=== PATIENT | male | born 1940 | race Caucasian/White ===

== ENCOUNTER → 2016-10-21 | Outpatient (CLI) | payer OTHER ==
[~2016-10-21] MED LIST: ACET-1311 PO; ALT5 PO; ASCA500 PO; ASPCH81 PO; ASPI81CH2 PO; ATRINS INH; BUME1TAB45 PO; BUME2TAB3 PO; CEFT1INJ57 IV; CLC100 PO; CLC100X PO; CMD/25 PO; CRD200 PO; FAMO1TAB47 PO; FLM4 PO; LECI1200; LEVO25TA5 PO; LEVO88TA3 PO; MCTP EXT; METO-479 PO; MULT-506 PO; NTRGSL/4 UT; OMEG10007 PO; POTA-74; PRAV40TA2; RAMI5CAP PO; WARF2.5T8 PO; XPNINS1255 INH; [UNRECOGNIZED DRUG - CODE] PO; [UNRECOGNIZED DRUG - OTHER] PO; [UNRECOGNIZED DRUG - OTHER] PO
[2016-10-21 12:33] LABS: THYROID STIMULATING HORMONE 0.013 uIu/ml (0.300-4.500)
== END | disposition home or self-care (01) ==
LOC: C.LABBFT 07:44
PROVIDERS: ATTEND Internal Medicine
DX: E05.90 Thyrotoxicosis, unspecified without thyrotoxic crisis or storm (principal); I48.91 Unspecified atrial fibrillation

== ENCOUNTER → 2016-12-30 | Outpatient (CLI) | payer OTHER ==
[~2016-12-30] MED LIST changes: -ASCA500 PO; -BUME2TAB3 PO; -METO-479 PO; +METO1TAB68 PO; -WARF2.5T8 PO
== END | disposition home or self-care (01) ==
LOC: C.LABBFT 07:35
PROVIDERS: ATTEND Urology
DX: E05.90 Thyrotoxicosis, unspecified without thyrotoxic crisis or storm (principal); N40.0 Benign prostatic hyperplasia without lower urinary tract symptoms; R33.9 Retention of urine, unspecified

== ENCOUNTER 2017-01-30 14:55 | Inpatient (IN) | payer OTHER ==
[~2017-01-30] VITALS: Ht 175.3 cm; Wt 100.6 kg
[~2017-01-30 14:55] MED LIST changes: -ASPI81CH2 PO; -ATRINS INH; -BUME1TAB45 PO; -CEFT1INJ57 IV; -CLC100X PO; -CRD200 PO; -FAMO1TAB47 PO; -LEVO25TA5 PO; -MCTP EXT; -RAMI5CAP PO; -XPNINS1255 INH
--- NOTE | 2017-01-30 15:18 | EMERGENCY ROOM VISIT NOTE ---
History First contact with patient: 15:10 (Alka. Story MD) First contact with patient: 15:10 (Skip Ignacio M.D.) Chief Complaint: BILATERAL LEG WEAKNESS Stated Complaint: CAN'T WALK - LEG PAIN History of Present Illness The patient is a 76 year old male who presents to the Emergency Room with complaints of bilateral leg weakness This morning, as he was walking towards his chair, he felt very weak, and had to sit in his chair. During attempt to get up 15-20miin later, patient's legs gave out and patient had to lower himself to the ground. No trauma to the head. No back pain, or pain anywhere in the body, no joint or muscle pain. Does feel numbness and tingling from the back of the knees to the toes. No saddle paresthesia. No BM since this morning. Urinary incontinence due to inability to get to the bathroom. No UTI symptoms. Diagnosed with transverse myelitis 2006 At baseline walking with cane, no issues with ambulation. Usually rides stationary like at home every morning and goes for walks Last fall a couple of years ago. No previous similar episodes No CP, headache No h/o stroke, DM, has history of heart, fractured vertebrae ~2014 Not on oxygen at home, but hypoxemic currently (Alka. Story MD) Source of History: patient Symptom Intensity: severe Quality: other (weakness) Timing: constant (Skip Ignacio M.D.) Review of Systems See HPI for pertinent positives and negatives. A total of ten systems were reviewed and were otherwise negative. (Alka. Story MD) See HPI for pertinent positives and negatives. A total of ten systems were reviewed and were otherwise negative. (Skip Ignacio M.D.) Past Medical/Surgical History Medical Problems: (1) Aortic dissection, thoracic (2) CAD (coronary artery disease) (3) H/O thrombosis (4) H/O: pneumonia (5) HTN (hypertension) (6) Lower extremity weakness (7) Presence of combination internal cardiac defibrillator (ICD) and pacemaker (8) Transverse myelitis Surgical Problems: (1) aortic valve replacement with cadaver valve (2) H/O aortic valve replacement with porcine valve (3) History of aortic valve replacement with metallic valve (Skip Ignacio M.D.) Family History Patient reports no known family medical history. (Alka. Story MD) Social History Smoking Status: Former Smoker (Ex smoker of 20 year, with ) Smokeless Tobacco Use: No Drug Use: none Marital Status: Housing Status: lives with significant other Occupation Status: retired (Alka. Story MD) Alcohol Use: none Drug Use: none Marital Status: Housing Status: lives with family (Skip Ignacio M.D.) Current/Historical Medications Scheduled Acetaminophen (Tylenol), 650 MG PO Q4HR PRN Amiodarone HCl (Amiodarone HCl), 200 MG PO QAM Aspirin (Aspirin), 81 MG PO DAILY Bumetanide (Bumex), 2 MG PO BID Docusate Sodium (Docusate Sodium), 100 MG PO BID Famotidine (Famotidine), 20 MG PO DAILY Fish Oil ([place]-3), 1 CAP PO DAILY Lecithin (Lecithin), 1,200 MG DAILY Levothyroxine Sodium (Levothyroxine Sodium), 25 MCG PO QAM Metoprolol Succinate (Toprol Xl), 100 MG PO DAILY Multivitamin (Multivitamin), 1 TAB PO DAILY Nitroglycerin (Nitrostat), 0.4 MG UT PRN Potassium Chloride (Potassium Chloride Er), 10 MEQ BID Pravastatin Sodium (Pravastatin Sodium), 40 MG HS Ramipril (Ramipril), 5 MG PO DAILY Tamsulosin HCl (Tamsulosin HCl), 0.4 MG PO HS Warfarin Sod (Coumadin), 1.25 MG PO MWF Warfarin Sod (Coumadin), 2.5 MG PO DIRECTED Physical Exam Vital Signs Date Time Temp Pulse Resp B/P (MAP) Pulse Ox O2 Delivery O2 Flow Rate FiO2 01/30/17 18:32 72 18 129/104 92 Nasal Cannula 3.0 01/30/17 17:21 76 18 129/45 92 Nasal Cannula 4.0 01/30/17 16:18 73 01/30/17 15:18 94 Nasal Cannula 4.0 01/30/17 15:18 89 Room Air 01/30/17 15:15 60 16 108/46 93 Nasal Cannula 4.0 01/30/17 14:59 37.9 74 18 99/53 91 Room Air (Skip Ignacio M.D.) Physical Exam GENERAL: alert, well appearing, thin, sitting in bed, no acute distress, non- toxic HEAD: Normocephalic, atraumatic. No sinus tenderness. EYES: PERRL, EOMI, normal conjunctiva OROPHARYNX: no exudate, no erythema, lips, buccal mucosa, and tongue normal and mucous membranes are dry EARS: Tympanic membranes within normal limits, no indication of effusion. NECK: supple, no nuchal rigidity, no adenopathy, non-tender LUNGS: Clear to auscultation. Normal chest wall mechanics, good air entry. No crepitations, crackles, or wheezes HEART: no murmurs, S1 normal and S2 normal CHEST: No reproducible tenderness. ABDOMEN: abdomen soft, non-tender, normo-active bowel sounds, no masses, no rebound or guarding. BACK: Back is symmetrical on inspection, no deformities, no midline tenderness, no CVA tenderness. : Good rectal tone, no perianal numbness SKIN: Warm, pink, dry. No erythema, rashes, or bruising. UPPER EXTREMITIES: upper extremities are grossly normal. Strength 5/5 LOWER EXTREMITIES: No lower limb edema. Calves non tender. Proximal muscular weakness, worse in right than left - strength 1/5, but 4-5/5 bilaterally at all other muscle groups. NEURO: Alert, Ox3. No focal deficits. Normal sensorium, cranial nerves II-XII grossly intact, normal speech. Kernig and Brudzinski negative PSYCH: Mood and affect appropriate. (Alka. Story MD) GENERAL: alert, well appearing, thin, sitting in bed, no acute distress, non- toxic HEAD: Normocephalic, atraumatic. No sinus tenderness. EYES: PERRL, EOMI, normal conjunctiva OROPHARYNX: no exudate, no erythema, lips, buccal mucosa, and tongue normal and mucous membranes are dry EARS: Tympanic membranes within normal limits, no indication of effusion. NECK: supple, no nuchal rigidity, no adenopathy, non-tender LUNGS: Clear to auscultation. Normal chest wall mechanics, good air entry. No crepitations, crackles, or wheezes HEART: no murmurs, S1 normal and S2 normal CHEST: No reproducible tenderness. ABDOMEN: abdomen soft, non-tender, normo-active bowel sounds, no masses, no rebound or guarding. BACK: Back is symmetrical on inspection, no deformities, no midline tenderness, no CVA tenderness. : Good rectal tone, no perianal numbness SKIN: Warm, pink, dry. No erythema, rashes, or bruising. UPPER EXTREMITIES: upper extremities are grossly normal. Strength 5/5 LOWER EXTREMITIES: No lower limb edema. Calves non tender. Proximal muscular weakness, worse in right than left - strength 1/5, but 4-5/5 bilaterally. NEURO: Alert, Ox3. No focal deficits. Normal sensorium, cranial nerves II-XII grossly intact, normal speech. Kernig and Brudzinski negative PSYCH: Mood and affect appropriate. (Skip Ignacio M.D.) Medical Decision & Procedures ER Provider Diagnostic Interpretation: CERVICAL SPINE W/O CT DOSE: HISTORY: Pain. Neuropathy. lower limb weakness, h/o transverse myelitis. ICD in place TECHNIQUE: Multiaxial CT images of the cervical spine were performed and reformatted in the sagittal and coronal plane without the use of contrast. A dose lowering technique was utilized adhering to the principles of ALARA. COMPARISON: None. FINDINGS: No fractures. No subluxation. Prevertebral soft tissues and the C1-C2 interval are intact. No pneumothorax. Considerable degenerative disc change. Mild anterior and posterior osteophytic change throughout. No significant compromise of the spinal canal. Mild reversal of normal cervical curvature. IMPRESSION: No fractures within the cervical spine. Considerable degenerative change throughout. Muscle spasm. THORACIC SPINE WITHOUT CT DOSE: HISTORY: Pain. Neuropathy. lower limb weakness, h/o transverse myelitis. ICD in place TECHNIQUE: Multiaxial CT images of the thoracic spine were performed and reformatted in the sagittal and coronal plane without the use of contrast. A dose lowering technique was utilized adhering to the principles of ALARA. COMPARISON: None. FINDINGS: No fractures. No subluxation. Paraspinal soft tissues are unremarkable. Degenerative disc change throughout. IMPRESSION: No fractures within the thoracic spine. Moderate degenerative disc change. No acute process. LUMBAR SPINE WITHOUT CT DOSE: 3660.19 mGy.cm HISTORY: Pain lower limb weakness, h/o transverse myelitis. ICD in place TECHNIQUE: Multiaxial CT images of the lumbar spine were performed and reformatted in the sagittal and coronal plane without the use of contrast. A dose lowering technique was utilized adhering to the principles of ALARA. COMPARISON: 01/23/2015 FINDINGS: Mild compression deformity L1 considered old and unchanged. Moderate degenerative disc change throughout. 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 This is a nonacute finding. IMPRESSION: 1. Mild compression deformity L1 considered old. 2. Mild/moderate degenerative disc change throughout also stable from the prior exam. There 3. Stable aneurysmal dilatation abdominal aorta. CHEST ONE VIEW PORTABLE CLINICAL HISTORY: SOB requiring O2 dyspnea COMPARISON STUDY: No previous studies for comparison. FINDINGS: Cardiomegaly. Permanent bipolar cardiac pacemaker. Prominent pulmonary vasculature. IMPRESSION: Congestive heart failure (Alka. Story MD) Laboratory Results Test 01/30/17 16:08 Erythrocyte Sedimentation Rate 12 mm/hr (0-14) Phosphorus Level 2.1 mg/dl (2.5-4.9) C-Reactive Protein 5.99 mg/dl (0-0.29) Pro-B-Type Natriuretic Peptide 8173 pg/ml (0-1800) (Skip Ignacio M.D.) ECG Indication: SOB/dyspnea Rate (beats per minute): 74 Rhythm: other Findings: LBBB, T-wave inversion (Lateral and high lateral, consistent with previous EKG) Comparison ECG Date: Wide QRS rhythm has replaced Electronic ventricular pacemaker from previous EKG (Alka. Story MD) ED Course 1517: The patient was evaluated in room B11B. A complete history and physical exam was performed. 1644: Patient reassessed and, trial off oxygen, sats 88%. Rports no chest discomfort at this time. 1701: Dr. Randall consulted and requested thin slice CT 1748: Discussed case with hospitalist Dr. Lu 1800: Paged neurologist, Dr. Smith, and discussed management with him. (Alka. Story MD) Medical Decision Prior records/ancillary studies reviewed and summarized above. Nursing notes reviewed. Additional history obtained from patient and . The patient's history was concerning for lower extremity weakness. Differential diagnosis: Etiologies such as metabolic, infection, hypo/hyperglycemia, electrolyte abnormalities, cardiac sources, intracerebral event, toxicologic, neurologic, as well as others were entertained. Physical examination: As above. ER treatment provided: IV Lock On reassessment the patient felt better. Diagnostics interpretation by me: ECG: abnormal, LBBB, wide QRS complex. No ST elevations. The labs revealed elevated WBC, low platelets, elevated PT/INR consistent with warfarin use, blood and bacteria in urine, elevated creatinine, low phosphate, elevated troponin, elevated CRP Imaging studies: Unable to perform MRI due to ICD (defibrillator) CT cervical, thoracic, lumbar negative for acute causes of weakness CXR shows CHF Consultation: A consultation was placed with the neurologist and hospitalist. The case was discussed and diagnostics were reviewed. By the evaluation outlined above etiologies such as infection, electrolyte abnormalities, cardiac sources, and neurologic abnormalities require further work up. Other emergent etiologies such as intracerebral event, toxologic, blood glucose, metabolic, as well as others were deemed relatively unlikely. The patient and family informed about the findings as listed above. All questions were answered and family pleased with the management. Hospitalist agreeable to assess for admission. Neurologist will follow. (Alka. Story MD) I saw and examined the patient w/ thre resident and agree with the findings and plan of care as documented. Patient is 76 y/o WM w/ extensive PMHx incluinding aortic dissection, transverse myelitis, AVR on coumadin, HTN who presented w/ proximal b/l LE weakness. Upon further evaluation patient was hypoxic and required supplemental oxygen. Futher evaluation showed patient w/ R > L leg weakness in his proximal muscles primarily hip flexors/extensors but w/ good rectal tone. Patient not noted to have acute ischemic changes on EKG; however, he had a +troponin and in the setting of pulm edema on CXR, likely caused by demand ischemia from CHF. This likely also was causing his hypoxia. Patient was discussed w/ the medicine service who agreed patietn would benefit from admission and futher evaluation. Given concern for myopathy, cord lession, myeletis etc patient had imaging of the spine completed. Discussions were had w / Dr. Randall of [facility] as well as neurologist Dr. Smith. Due to patient's old AICD, unable to obtain MRI imaging of spine, but CTs were negative for hematoma or fracture. Patient was admitted for further management with the assistance of medicine and neurology teams. (Skip Ignacio M.D.) Impression Primary Impression: Leg weakness Additional Impressions: CHF (congestive heart failure) Hypoxia Cardiac ischemia Critical Care I have discussed the case with the resident Dr. Story. I have personally performed a history, physical exam, and my own medical decision making. I have reviewed the note and agree with the findings and plan. Upon my evaluation, this patient had a high probability of imminent or life- threatening deterioration due to CHF, hypoxia, cardiac ischemia, which required my direct attention, intervention, and personal management. I have personally provided 45 minutes of critical care time exclusive of time spent on separately billable procedures. Time includes review of laboratory data , radiology results, discussion with consultants, and monitoring for potential decompensation. Interventions were performed as documented above. (Skip Ignacio M.D.) Departure Information Dispostion Being Evaluated By Hospitalist Condition FAIR Referrals Byron Vizcaino M.D. (PCP) Patient Instructions My [facility] Resident Tracking Resident Involvement: Resident Care Provided Care Provided: Adult ED (Alka. Story MD) Care Provided: Adult ED (I saw and examined the patient w/ thre resident and agree with the findings and plan of care as documented. Patient is 76 y/o WM w/ extensive PMHx incluinding aortic dissection, transverse myelitis, AVR on coumadin, HTN who presented w/ proximal b/l LE weakness. Upon further evaluation patient was hypoxic and required supplemental oxygen. Futher evaluation showed patient w/ R > L leg weakness in his proximal muscles primarily hip flexors/extensors but w/ good rectal tone. Patient not noted to have acute ischemic changes on EKG; however, he had a +troponin and in the setting of pulm edema on CXR, likely caused by demand ischemia from CHF. This likely also was causing his hypoxia. Patient was discussed w/ the medicine service who agreed patietn would benefit from admission and futher evaluation. Given concern for myopathy, cord lession, myeletis etc patient had imaging of the spine completed. Discussions were had w/ Dr. Randall of [facility] as well as neurologist Dr. Smith. Due to patient's old AICD, unable to obtain MRI imaging of spine, but CTs were negative for hematoma or fracture. Patient was admitted for further management with the assistance of medicine and neurology teams. ) (Skip Ignacio M.D.) Problem Qualifiers
[2017-01-30] MEDS ORDERED: FAMO1TAB47 PO (15:21)
[2017-01-30] MEDS ORDERED: LEVO25TA5 PO (15:21)
[2017-01-30] MEDS ORDERED: FLM4 PO (15:21)
[2017-01-30] MEDS ORDERED: BUME1TAB45 PO (15:21)
[2017-01-30] MEDS ORDERED: CRD200 PO (15:21)
[2017-01-30] MEDS ORDERED: RAMI5CAP PO (15:21)
[2017-01-30] MEDS ORDERED: ASPI81CH2 PO (15:21)
[2017-01-30] MEDS ORDERED: CLC100X PO (15:21)
[2017-01-30 16:27] LABS: BASO % 0.2 %; BASO ABS # 0.03 K/uL (0-0.2); COMPLETE YES; HEMATOCRIT 42.7 % (42-52); IG% 0.6 %; LYMPH % 6.1 %; LYMPH ABS # 1.05 K/uL (1.2-3.4); MEAN CELL VOLUME 92.8 fL (80-100); MEAN CORPUSCULAR HEMOGLOBIN 29.1 pg (25-34); MEAN CORPUSCULAR HGB CONC 31.4 g/dl (32-36); MEAN PLATELET VOLUME 11.3 fL (7.4-10.4); MONO % 7.2 %; NEUT % 85.9 %; PLATELET COUNT 107 K/uL (130-400); WHITE BLOOD COUNT 17.16 K/uL (4.8-10.8)
[2017-01-30 16:44] LABS: BUN/CREATININE RATIO 13.1 (10-20); CALCIUM 8.3 mg/dl (8.5-10.1); CREATININE 1.8 mg/dl (0.60-1.40); MAGNESIUM 2.3 mg/dl (1.8-2.4); POTASSIUM 4.9 mmol/L (3.5-5.1)
[2017-01-30 16:53] LABS: C-REACTIVE PROTEIN 5.99 mg/dl (0-0.29); PHOSPHORUS 2.1 mg/dl (2.5-4.9)
--- NOTE | 2017-01-30 17:29 | DIAGNOSTIC IMAGING REPORT ---
CERVICAL SPINE W/O CT DOSE: HISTORY: Pain. Neuropathy. lower limb weakness, h/o transverse myelitis. ICD in place TECHNIQUE: Multiaxial CT images of the cervical spine were performed and reformatted in the sagittal and coronal plane without the use of contrast. A dose lowering technique was utilized adhering to the principles of ALARA. COMPARISON: None. FINDINGS: No fractures. No subluxation. Prevertebral soft tissues and the C1-C2 interval are intact. No pneumothorax. Considerable degenerative disc change. Mild anterior and posterior osteophytic change throughout. No significant compromise of the spinal canal. Mild reversal of normal cervical curvature. IMPRESSION: No fractures within the cervical spine. Considerable degenerative change throughout. Muscle spasm. The above report was generated using voice recognition software. It may contain grammatical, syntax or spelling errors. Electronically signed by: Jayant Vazquez M.D. 01/30/2017 5:27 PM Dictated Date/Time: 01/30/2017 5:26 PM
--- NOTE | 2017-01-30 17:30 | DIAGNOSTIC IMAGING REPORT ---
THORACIC SPINE WITHOUT CT DOSE: HISTORY: Pain. Neuropathy. lower limb weakness, h/o transverse myelitis. ICD in place TECHNIQUE: Multiaxial CT images of the thoracic spine were performed and reformatted in the sagittal and coronal plane without the use of contrast. A dose lowering technique was utilized adhering to the principles of ALARA. COMPARISON: None. FINDINGS: No fractures. No subluxation. Paraspinal soft tissues are unremarkable. Degenerative disc change throughout. IMPRESSION: No fractures within the thoracic spine. Moderate degenerative disc change. No acute process. The above report was generated using voice recognition software. It may contain grammatical, syntax or spelling errors. Electronically signed by: Jayant Vazquez M.D. 01/30/2017 5:29 PM Dictated Date/Time: 01/30/2017 5:28 PM
--- NOTE | 2017-01-30 17:33 | DIAGNOSTIC IMAGING REPORT ---
LUMBAR SPINE WITHOUT CT DOSE: 3660.19 mGy.cm HISTORY: Pain lower limb weakness, h/o transverse myelitis. ICD in place TECHNIQUE: Multiaxial CT images of the lumbar spine were performed and reformatted in the sagittal and coronal plane without the use of contrast. A dose lowering technique was utilized adhering to the principles of ALARA. COMPARISON: 01/23/2015 FINDINGS: Mild compression deformity L1 considered old and unchanged. Moderate degenerative disc change throughout. 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 This is a nonacute finding. IMPRESSION: 1. Mild compression deformity L1 considered old. 2. Mild/moderate degenerative disc change throughout also stable from the prior exam. There 3. Stable aneurysmal dilatation abdominal aorta. The above report was generated using voice recognition software. It may contain grammatical, syntax or spelling errors. Electronically signed by: Jayant Vazquez M.D. 01/30/2017 5:32 PM Dictated Date/Time: 01/30/2017 5:29 PM
--- NOTE | 2017-01-30 17:37 | DIAGNOSTIC IMAGING REPORT ---
CHEST ONE VIEW PORTABLE CLINICAL HISTORY: SOB requiring O2 dyspnea COMPARISON STUDY: No previous studies for comparison. FINDINGS: Cardiomegaly. Permanent bipolar cardiac pacemaker. Prominent pulmonary vasculature. IMPRESSION: Congestive heart failure The above report was generated using voice recognition software. It may contain grammatical, syntax or spelling errors. Electronically signed by: Jayant Vazquez M.D. 01/30/2017 5:36 PM Dictated Date/Time: 01/30/2017 5:36 PM
[2017-01-30 18:15] LABS: INR 2.2 (0.9-1.1); PARTIAL THROMBOPLASTIN RATIO 1.4; PROTHROMBIN TIME (PATIENT) 24.8 SECONDS (9.0-12.0)
[2017-01-30] MEDS ORDERED: ALUMINUM/MAGNESIUM/SIMETH (MAALOX MAX) 30 ML UDC PO PRN (19:15)
[2017-01-30] MEDS ORDERED: ONDANSETRON INJ 2 MG/ML 2 ML VIAL IV PRN (19:15)
[2017-01-30] MEDS ORDERED: FUROSEMIDE 40 MG/4 ML VIAL ONE (19:23)
[2017-01-30] MEDS ORDERED: NURSING VERBAL MED ORDER ONE (19:30)
[2017-01-30] MEDS ORDERED: FUROSEMIDE 40 MG/4 ML VIAL IV STA (19:49)
--- NOTE | 2017-01-30 19:56 | History and Physical ---
History & Physical Date & Time of Service: Jan 30, 2017 at 19:34 Chief Complaint: Can't Walk - Leg Pain Primary Care Physician: Byron Vizcaino M.D. History of Present Illness Source: patient, family, clinic records This patient is a pleasant 76-year-old male that presents emergency department complaining of acute onset of lower extremity weakness that occurred when he got up this morning. The patient thinks that the weakness is slightly worse in his right leg as opposed to his left. He got out of bed this morning and try to get to his chair. He ended up collapsing. He denies any significant pain in his legs or lower back. He denies any urinary or bowel incontinence. Patient reports a history of transverse myelitis. Unfortunately, he says that this is a similar presentation. He denies any fever or chills. No recent illnesses. He denies any numbness or tingling in his lower extremities. The patient was noted to be hypoxic in the emergency department. He has a history of congestive heart failure. The patient just saw his practical nursing teacher 2 days ago. No changes were made to his medications. He intermittently weighs himself at home. He reports gaining 1 pounds over the last few days. He denies any salty foods. He does not feel short of breath. He does not wear oxygen at home. he has a nonproductive cough, but he says that this is chronic. Past Medical/Surgical History Surgical Problems: (1) aortic valve replacement with cadaver valve Status: Resolved Aortic dissection status post repair AVR in 2000 Status was ICD placement A flutter/A. fib CHF with an EF of 45% as of 2012 Chronic kidney disease stage III Family History Noncontributory Social History Smoking Status: Former Smoker (Ex smoker of 20 year, with ) Smokeless Tobacco Use: No Alcohol Use: none Drug Use: none Marital Status: Housing status: lives with family Occupational Status: retired Immunizations History of Influenza Vaccine: No History of Tetanus Vaccine?: Yes History of Pneumococcal: Yes Pneumococcal Date: Apr 08, 2002 History of Hepatitis B Vaccine: No Multi-Drug Resistant Organisms History of MDRO: No Allergies Coded Allergies: Adhesives (Verified Adverse Reaction, Mild, 0, 01/30/17) Home Medications Scheduled Acetaminophen (Tylenol), 650 MG PO Q4HR PRN Amiodarone HCl (Amiodarone HCl), 200 MG PO QAM Aspirin (Aspirin), 81 MG PO DAILY Bumetanide (Bumex), 2 MG PO BID Docusate Sodium (Docusate Sodium), 100 MG PO BID Famotidine (Famotidine), 20 MG PO DAILY Fish Oil ([place]-3), 1 CAP PO DAILY Lecithin (Lecithin), 1,200 MG DAILY Levothyroxine Sodium (Levothyroxine Sodium), 25 MCG PO QAM Metoprolol Succinate (Toprol Xl), 100 MG PO DAILY Multivitamin (Multivitamin), 1 TAB PO DAILY Nitroglycerin (Nitrostat), 0.4 MG UT PRN Potassium Chloride (Potassium Chloride Er), 10 MEQ BID Pravastatin Sodium (Pravastatin Sodium), 40 MG HS Ramipril (Ramipril), 5 MG PO DAILY Tamsulosin HCl (Tamsulosin HCl), 0.4 MG PO HS Warfarin Sod (Coumadin), 1.25 MG PO MWF Warfarin Sod (Coumadin), 2.5 MG PO DIRECTED Review of Systems 10 system review performed and negative unless noted in HPI or below Physical Exam Vital Signs Date Time Temp Pulse Resp B/P (MAP) Pulse Ox O2 Delivery O2 Flow Rate FiO2 01/30/17 18:32 72 18 129/104 92 Nasal Cannula 3.0 01/30/17 17:21 76 18 129/45 92 Nasal Cannula 4.0 01/30/17 16:18 73 01/30/17 15:18 94 Nasal Cannula 4.0 01/30/17 15:18 89 Room Air 01/30/17 15:15 60 16 108/46 93 Nasal Cannula 4.0 01/30/17 14:59 37.9 74 18 99/53 91 Room Air General Appearance: + mild distress (mild distress. The patient is uncomfortable in appearance.) Head: normocephalic Eyes: EOMI ENT: + pertinent finding (oral mucosa dry) Neck: no JVD Respiratory/Chest: + pertinent finding (mild wheeze noted throughout. Decreased breath sounds at the bases bilaterally. Poor inspiratory effort. ) Cardiovascular: + pertinent finding (occasionally irregular. Systolic murmur noted.) Abdomen/GI: normal bowel sounds, non tender, soft Extremities/Musculoskelatal: + pertinent finding (trace pitting edema in the lower extremities right greater than left. No tenderness appreciated.) Neurologic/Psych: commercial counsel II-XII nml as tested, + pertinent finding (weakness noted in the lower extremities right greater than left. Sensation is intact.) Skin: warm/dry Diagnostics Laboratory Results Results Past 24 Hours Test 01/30/17 16:08 Range/Units White Blood Count 17.16 4.8-10.8 K/uL Red Blood Count 4.60 4.7-6.1 M/uL Hemoglobin 13.4 14.0-18.0 g/dL Hematocrit 42.7 42-52 % Mean Corpuscular Volume 92.8 80-100 fL Mean Corpuscular Hemoglobin 29.1 25-34 pg Mean Corpuscular Hemoglobin Concent 31.4 32-36 g/dl Platelet Count 107 130-400 K/uL Mean Platelet Volume 11.3 7.4-10.4 fL Neutrophils (%) (Auto) 85.9 % Lymphocytes (%) (Auto) 6.1 % Monocytes (%) (Auto) 7.2 % Eosinophils (%) (Auto) 0.0 % Basophils (%) (Auto) 0.2 % Neutrophils # (Auto) 14.73 1.4-6.5 K/uL Lymphocytes # (Auto) 1.05 1.2-3.4 K/uL Monocytes # (Auto) 1.24 0.11-0.59 K/uL Eosinophils # (Auto) 0.00 0-0.5 K/uL Basophils # (Auto) 0.03 0-0.2 K/uL RDW Standard Deviation 58.3 36.4-46.3 fL RDW Coefficient of Variation 17.1 11.5-14.5 % Immature Granulocyte % (Auto) 0.6 % Immature Granulocyte # (Auto) 0.11 0.00-0.02 K/uL Erythrocyte Sedimentation Rate 12 0-14 mm/hr Prothrombin Time 24.8 9.0-12.0 SECONDS Prothromb Time International Ratio 2.2 0.9-1.1 Activated Partial Thromboplast Time 37.6 21.0-31.0 SECONDS Partial Thromboplastin Ratio 1.4 Sodium Level 139 136-145 mmol/L Potassium Level 4.9 3.5-5.1 mmol/L Chloride Level 103 98-107 mmol/L Carbon Dioxide Level 31 21-32 mmol/L Anion Gap 5.0 3-11 mmol/L Blood Urea Nitrogen 24 7-18 mg/dl Creatinine 1.80 0.60-1.40 mg/dl Est Creatinine Clear Calc Drug Dose 39.7 ml/min Estimated GFR () 41.4 Estimated GFR (Non- 35.8 BUN/Creatinine Ratio 13.1 10-20 Random Glucose 91 70-99 mg/dl Calcium Level 8.3 8.5-10.1 mg/dl Phosphorus Level 2.1 2.5-4.9 mg/dl Magnesium Level 2.3 1.8-2.4 mg/dl Total Creatine Kinase 452 39-308 U/L Troponin I 0.079 0-0.045 ng/ml C-Reactive Protein 5.99 0-0.29 mg/dl Diagnostic Radiology CERVICAL SPINE W/O CT DOSE: HISTORY: Pain. Neuropathy. lower limb weakness, h/o transverse myelitis. ICD in place TECHNIQUE: Multiaxial CT images of the cervical spine were performed and reformatted in the sagittal and coronal plane without the use of contrast. A dose lowering technique was utilized adhering to the principles of ALARA. COMPARISON: None. FINDINGS: No fractures. No subluxation. Prevertebral soft tissues and the C1-C2 interval are intact. No pneumothorax. Considerable degenerative disc change. Mild anterior and posterior osteophytic change throughout. No significant compromise of the spinal canal. Mild reversal of normal cervical curvature. IMPRESSION: No fractures within the cervical spine. Considerable degenerative change throughout. Muscle spasm. THORACIC SPINE WITHOUT CT DOSE: HISTORY: Pain. Neuropathy. lower limb weakness, h/o transverse myelitis. ICD in place TECHNIQUE: Multiaxial CT images of the thoracic spine were performed and reformatted in the sagittal and coronal plane without the use of contrast. A dose lowering technique was utilized adhering to the principles of ALARA. COMPARISON: None. FINDINGS: No fractures. No subluxation. Paraspinal soft tissues are unremarkable. Degenerative disc change throughout. IMPRESSION: No fractures within the thoracic spine. Moderate degenerative disc change. No acute process. LUMBAR SPINE WITHOUT CT DOSE: 3660.19 mGy.cm HISTORY: Pain lower limb weakness, h/o transverse myelitis. ICD in place TECHNIQUE: Multiaxial CT images of the lumbar spine were performed and reformatted in the sagittal and coronal plane without the use of contrast. A dose lowering technique was utilized adhering to the principles of ALARA. COMPARISON: 01/23/2015 FINDINGS: Mild compression deformity L1 considered old and unchanged. Moderate degenerative disc change throughout. 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 This is a nonacute finding. IMPRESSION: 1. Mild compression deformity L1 considered old. 2. Mild/moderate degenerative disc change throughout also stable from the prior exam. There 3. Stable aneurysmal dilatation abdominal aorta. CHEST ONE VIEW PORTABLE CLINICAL HISTORY: SOB requiring O2 dyspnea COMPARISON STUDY: No previous studies for comparison. FINDINGS: Cardiomegaly. Permanent bipolar cardiac pacemaker. Prominent pulmonary vasculature. IMPRESSION: Congestive heart failure EKG KATHY LOREDO ID:[id number] 30-JAN-2017 16:02:48 [facility] Poor data quality, interpretation may be adversely affected Left bundle branch block Abnormal ECG When compared with ECG of 23-JUL-2010 07:30, Wide QRS rhythm has replaced Electronic ventricular pacemaker Confirmed by Morales Nevarez ([id number]) on 01/30/2017 5:39:14 PM 25mm/s 10mm/mV 150Hz 8.0 SP2 12SL 241 JUAN: 3 Referred by: Referred Self Confirmed By: Morales Nevarez Impression Assessment and Plan 76-year-old male presents emergency department with complaints of acute onset of bilateral lower extremity weakness. No appreciable pain. Sensation intact. The patient has a history of transverse myelitis. His exam is consistent with recurrence. The patient was also found to be hypoxic in the emergency department with possible exacerbation of CHF. The patient is asymptomatic. Acute respiratory failure with hypoxia-secondary to CHF exacerbation -Admit to telemetry -repeat echo -Lasix 40 mg IV 1 dose. -Continue Bumex 2 mg twice daily -Strict I's and O's -Insert Sandoval -Continue Toprol XL 100 mg daily -Hold ramipril for now -Xopenex/ipratropium nebs q 6 hr prn for any wheezing component Slightly elevated troponin-this is likely secondary to hypoxia and possibly renal function. The patient is asymptomatic. -Telemetry monitoring as noted above -Serial cardiac enzymes -Daily EKG History of A. fib -Continue Toprol as noted above -Continue warfarin at current dosin.25 mg Friday, Friday, Friday. 2.5 mg every other day Chronic kidney disease stage III-creatinine is slightly off from baseline -Avoid nephrotoxic agents -Unfortunately, the patient does need to be slightly diuresed from a cardiopulmonary standpoint Lower extremity weakness likely secondary to transverse myelitis -Bedrest for now -Neurology consult -Hold off on any treatment such as steroids until seen by neurology -PT/OT ron. The patient will likely need rehabilitation upon discharge DVT prophylaxis -coumadin -TEDS, SCDs CODE STATUS -LEVEL V DO NO RESUSCITATE Attending Addendum: I have physically seen and examined this patient, have directed the physician assistants medical activities, and agree with the H&P as noted above with the following exceptions: NONE The patient is awake, alert and oriented 3, looks chronically ill, fatigued, lying in bed and in otherwise no acute distress. HEENT--PERRL, EOMI, mucous membranes and oropharynx dry. Neck--supple, no JVD or bruits, thyroid normal, trachea midline, no adenopathy. Heart--normal S1 and S2, occasional extra beats, no murmurs, rubs or gallops. Lungs--diffuse wheezing bilaterally, with decreased breath sounds at the bases, mild respiratory distress and accessory muscle use. Abdomen--normal bowel sounds and soft, nontender and nondistended, no hernias or masses, no organomegaly. Extremities--no cyanosis, clubbing. There is bilaterally pretibial and pedal 1 + pitting edema, right greater than left. There are good distal pulses b/l. Dermatologic--normal skin turgor, normal color, warm and dry, no abnormal lymph nodes, no rash. Neurologic--cranial nerves II through XII grossly intact, motor and sensory examination normal. Rheumatologic--overall decreased strength lower extremities with right worse than left. Psychiatric--normal affect. Assessment and Plan: 1. Acute respiratory failure with hypoxia/acute CHF exacerbation/atrial fibrillation/hypertension--The patient will be admitted to telemetry for serial cardiac enzymes, cardiac rhythm monitoring and a 2-D echocardiogram with Dopplers. Give Lasix 40 mg IV 1 now, then continue Bumex 2 mg by mouth twice a day starting tomorrow. Sandoval catheter insertion. Continue metoprolol succinate 100 mg by mouth daily. Hold ramipril. Initial cardiac enzyme minimally elevated, we'll follow serially as noted. Xopenex/Atrovent nebulizers every 6 hours when necessary. Continue warfarin and follow with serial INRs next 2. Transverse myelitis/l weakness--neurology is asked that no treatment be done tonight and they will adjust treatment the morning Consult PT and OT. Expect the patient will need to have inpatient rehabilitation. Level of Care Telemetry Advanced Directives Existing Advance Directive: Yes Existing Living Will: Yes Existing Power of It Professional: Yes Resuscitation Status DO NOT RESUSCITATE VTE Prophylaxis VTE Risk Assessment Done? Y/N: Yes Risk Level: Low Given or contraindicated: Warfarin (Coumadin), T.E.D. Stockings, SCD's
[2017-01-30] MEDS ORDERED: IPRATROPIUM BROMIDE NEB SOLN 0.02% 2.5 ML VIAL INH PRN (20:00)
[2017-01-30] MEDS ORDERED: LEVALBUTEROL 1.25MG/0.5ML NEB INH PRN (20:00)
[2017-01-30] MEDS ORDERED: LEVALBUTEROL/IPRATROPIUM NEB INH PRN (20:00)
[2017-01-30 20:45] VITALS: BP 104/47; PULSE 71; TEMP 37.2; O2SAT 94; Ht 175.3 cm; Wt 100.6 kg
[2017-01-30] MEDS ORDERED: PRAVASTATIN SOD 40 MG TAB PO SCH (21:00)
[2017-01-30] MEDS: TAMSULOSIN HCL 0.4 MG CAP PO SCH (21:52)
[2017-01-30 23:52] VITALS: BP 90/37; PULSE 69; TEMP 38; O2SAT 92
[2017-01-31] VITALS (14 sets, daily range): BP systolic 78–128; BP diastolic 44–64; PULSE 73–100; TEMP 36.8–39.5; O2SAT 90–95
[2017-01-31] MEDS: ACETAMINOPHEN 325 MG TAB PO PRN ×4 (00:09→23:17)
[2017-01-31] MEDS ORDERED: SODIUM CHLORIDE 0.9% 250ML 250 ML IV SCH (00:45)
[2017-01-31 02:13] LABS: CKMB/CK RATIO 0.1 (0-3.0)
[2017-01-31 05:46] LABS: MEAN CELL VOLUME 93.5 fL (80-100); MEAN CORPUSCULAR HEMOGLOBIN 28.5 pg (25-34); MEAN CORPUSCULAR HGB CONC 30.5 g/dl (32-36); RED BLOOD COUNT 4.17 M/uL (4.7-6.1); WHITE BLOOD COUNT 10.99 K/uL (4.8-10.8)
[2017-01-31 05:59] LABS: INR 2.1 (0.9-1.1); PROTHROMBIN TIME (PATIENT) 23.4 SECONDS (9.0-12.0)
[2017-01-31] MEDS: LEVOTHYROXINE 25 MCG TAB PO SCH (06:00)
[2017-01-31 06:17] LABS: BUN/CREATININE RATIO 17.1 (10-20); CALCIUM 7.8 mg/dl (8.5-10.1); CREATININE 1.5 mg/dl (0.60-1.40); MAGNESIUM 2.3 mg/dl (1.8-2.4); POTASSIUM 4.2 mmol/L (3.5-5.1)
[2017-01-31 06:19] LABS: MEAN PLATELET VOLUME 10.8 fL (7.4-10.4); PLATELET COUNT 75 K/uL (130-400)
[2017-01-31 06:20] LABS: BASO % 0.1 %; BASO ABS # 0.01 K/uL (0-0.2); COMPLETE YES; EOS % 0.1 %; IG% 0.5 %; LYMPH % 10.4 %; LYMPH ABS # 1.14 K/uL (1.2-3.4); MONO % 7.6 %; NEUT % 81.3 %; OVALOCYTES 1+; PLT ESTIMATE DECREASED
[2017-01-31] MEDS: AMIODARONE 200 MG TAB PO SCH (09:00)
[2017-01-31] MEDS ORDERED: METOPROLOL SUCC 50MG EXT REL TAB PO SCH (09:00)
--- NOTE | 2017-01-31 10:08 | Neurology Consultation ---
Neurology Consultation Date of Consultation: Jan 31, 2017. Attending Physician: Nathan Leigh M.D. Primary Care Physician: Byron Vizcaino M.D. Reason for Consultation: Patient is a 76-year-old, was asked to see at the request of Drs. Story and Lu, for neurologic consultation regarding new onset leg weakness. History of Present Illness Source: patient, caregiver, clinic records, hospital records This patient has a exceedingly complicated past cardiac history, which includes aortic valve replacement 3 separate occasions, aortic arch repair with grafting , atrial fibrillation, congestive heart failure, hypertension, and an implantable defibrillator and pacemaker. He is followed closely by cardiology. In January 2008, he had the sudden onset of anterior chest and posterior thoracic pain with decreased sensation in his abdomen posteriorly and anteriorly and paraplegia of the legs. He was noted on CT to have a 7 cm aortic aneurysm and he had a sensory level at proximally T7. He ended up being transferred from our emergency room to [place] where the differential included thoracic cord ischemia versus myelitis. I am not certain if a lumbar puncture was performed. In any event, he was given 5 days of IV Solu-Medrol, 1 g per day , and is leg weakness markedly improved. He spent some time at [facility] and ended up having some right greater than left proximal leg weakness with numbness below the knees bilaterally including the feet ever since. This has not changed over time. The patient has had no new medications and has not been ill recently. He saw cardiology on January 28 for a routine follow-up. The patient awoke at 0500 hours on January 30. He went to the bathroom and, after a while, he said his chair. At 0600 hours he tried to get up and fell because of proximal leg weakness. The right was worse than the left. He had no pain. He had no new numbness or tingling. He did his to help get him up off the floor. He then felt better while and when outside and sad. Again after sitting for a while he got up and had leg weakness and fell. This happened on and off throughout the morning until he was brought to the emergency room. He arrived at 1459 hours with a temperature 37.9, pulse 74, respiratory rate 18 , blood pressure 99/53, and O2 saturation 91%. He was described as awake and alert. His mental status was normal. He had proximal leg weakness right greater than left side. His arms are spared. CT scan of the cervical, thoracic, and lumbar spine showed significant degenerative changes diffusely with no cord compromise or masses. No bony fractures. There is a stable abdominal aortic aneurysm compared to previous studies. Chest x-ray was unremarkable. White count was elevated at 17.1. Today it is 11. He has mild anemia and a sedimentation rate of 12. BUN and creatinine were elevated at 26 and 1.5. CK was elevated at 452 and today was 491. pro-beta naturetic protein was elevated. Calcium was low at 7.8 Today the patient feels about the same as yesterday. He does not have any pain. He does not believe his arms are weak. He has no speech or mentation problems and has no changes in his numbness compared to baseline. He has a tremor but he says he has had this for at least a year. This is more the right than the left. He's had no new medication changes. He has no incontinence of urine typically. Past Medical/Surgical History History of thoracic transverse myelitis, January 2008 Congestive heart failure History of atrial fibrillation and flutter now in sinus rhythm. He has cardiac defibrillator and pacemakers implanted. Dyslipidemia Hypertension History of COPD BPH CK D, stage III Thoracic aortic aneurysm. In 2000 patient had aortic dissection and repair of ascending aorta with mechanical valve placement. He had atrial fibrillation postoperatively. In 2001 he had a redo of his aortic valve replacement and had a cadaveric valve implanted and a single vessel coronary artery bypass graft. In 2001 he had the AICD implanted replaced in 2007 and replaced in 2012 In 2007 he had a porcine valve implanted and in 2008 had repair of his aortic arch with redo of his graft. Also in 2008 he had an episode of DVT in his left upper extremity. Currently the patient is on Coumadin and 81 mg aspirin. Family History Mother age 93 of uncertain causes. Father in his early 80s of uncertain causes. Social History Patient smokes half pack of cigarettes per day for 10 years quitting about 25 years ago. He will have an occasional beer, but does not drink regularly or daily. 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 He did have some exposure to ammonia but no other significant toxins or chemicals, that he is aware. Smoking Status: Former smoker Smokeless Tobacco Use: No Alcohol Use: occasionally Drug Use: none Marital Status: Housing Status: lives with family, lives with significant other Occupation Status: retired Allergies Coded Allergies: Adhesives (Verified Adverse Reaction, Mild, 0, 01/30/17) Current Inpatient Medications Current Inpatient Medications Medications (Trade) Dose Ordered Sig/Deion Route Start Time Stop Time Status Last Admin Dose Admin Acetaminophen (Tylenol Tab) 650 mg Q4H PRN PO 01/30/17 19:15 03/01/17 19:14 01/31/17 00:09 650 MG Al Hydrox/Mg Hydrox/Simethicone (Maalox Max Susp) 15 ml Q4H PRN PO 01/30/17 19:15 03/01/17 19:14 Magnesium Hydroxide (Milk Of Magnesia Susp) 30 ml Q12H PRN PO 01/30/17 19:15 03/01/17 19:14 Ondansetron HCl (Zofran Inj) 4 mg Q6H PRN IV 01/30/17 19:15 03/01/17 19:14 Amiodarone HCl (Cordarone Tab) 200 mg QAM PO 01/31/17 09:00 03/02/17 08:59 Aspirin (Ecotrin Tab) 81 mg DAILY PO 01/31/17 09:00 03/02/17 08:59 Bumetanide (Bumex Tab) 2 mg BID17 PO 01/31/17 09:00 03/02/17 08:59 Famotidine (Pepcid Tab) 20 mg DAILY PO 01/31/17 09:00 03/02/17 08:59 Levothyroxine Sodium (Synthroid Tab) 25 mcg DAILYBB PO 01/31/17 06:00 03/02/17 06:59 01/31/17 06:00 25 MCG Metoprolol Succinate (Toprol Xl Tab) 100 mg DAILY PO 01/31/17 09:00 03/02/17 08:59 Pravastatin Sodium (Pravachol Tab) 40 mg HS PO 01/30/17 21:00 03/01/17 20:59 01/30/17 21:52 40 MG Tamsulosin HCl (Flomax Cap) 0.4 mg HS PO 01/30/17 21:00 03/01/17 20:59 01/30/17 21:52 0.4 MG Warfarin Sodium (Coumadin Tab) 1.25 mg MoWeFr@1600 PO 01/31/17 16:00 03/02/17 15:59 Warfarin Sodium (Coumadin Tab) 2.5 mg SuTuThSa@1600 PO 02/01/17 16:00 03/03/17 15:59 Ipratropium [place] (Atrovent 0.02% 0.5MG/2.5ML Neb) 0.5 mg Q6R PRN INH 01/30/17 20:00 03/01/17 19:59 Levalbuterol (Xopenex 1.25MG/ 0.5ML Neb) 1.25 mg Q6R PRN INH 01/30/17 20:00 03/01/17 19:59 Review of Systems Constitutional: + weakness, No fatigue Eyes: No worsening of vision, No diplopia ENT: No hearing loss, No sore throat, No tinnitus Respiratory: + shortness of breath, No cough Cardiovascular: No chest pain, No palpitations Abdomen: No pain, No nausea Musculoskeletal: No joint pain, No muscle pain Genitourinary - Male: No dysuria, No urinary incontinence Neurologic: + weakness, + numbness/tingling, + balance problems, No memory loss , No vertigo Psychiatric: No depression symptoms, No anxiety Endocrine: No fatigue Hematologic / Lymphatic: No abnormal bleeding/bruising Integumentary: No rash Allergic / Immunologic: No hives Physical Exam Vital Signs (Past 24 Hrs): Date Time Temp Pulse Resp B/P (MAP) Pulse Ox O2 Delivery O2 Flow Rate FiO2 01/31/17 08:00 93 Nasal Cannula 4.0 01/31/17 07:24 37.5 75 20 120/64 (82) 92 Nasal Cannula 4.0 01/31/17 04:02 36.8 75 23 90/44 (59) 93 Nasal Cannula 4.0 01/31/17 04:00 93 Nasal Cannula 4.0 01/31/17 02:09 37.5 91/53 (66) 01/31/17 00:33 87/47 (60) 01/31/17 00:00 92 Nasal Cannula 4.0 Humidified Oxygen 01/30/17 23:52 38.0 69 21 90/37 (54) 92 35.0 01/30/17 20:45 37.2 71 24 104/47 94 Nasal Cannula 3.0 01/30/17 19:50 74 22 106/52 92 8/3/17 18:32 72 18 129/104 92 Nasal Cannula 3.0 01/30/17 17:21 76 18 129/45 92 Nasal Cannula 4.0 01/30/17 16:18 73 01/30/17 15:18 94 Nasal Cannula 4.0 01/30/17 15:18 89 Room Air 01/30/17 15:15 60 16 108/46 93 Nasal Cannula 4.0 01/30/17 14:59 37.9 74 18 99/53 91 Room Air Patient is right-handed. The patient is awake and alert. Speech is normal without aphasia or dysarthria. His voice is hoarse and soft chronically. Mentation and thought processes seem intact however she does get somewhat confused with two-step commands and cannot do more than simple calculations. Mood and affect are normal and appropriate. Appearance and grooming are normal. The discs are difficult to visualize but seem sharp. There are no exudates, hemorrhages, or blood vessel changes seen. Pupils are 2-3mm bilaterally and reactive to light. There is likely early cataract formation bilaterally. Extraocular eye muscles are intact without nystagmus. Visual acuity and visual uribe seem normal grossly to confrontation. There are no deficits to sensation of the face bilaterally. Corneal reflexes are positive bilaterally. Facial strength and symmetry is normal bilaterally. Hearing seems intact grossly to voice and finger rub. Palate moves well without asymmetry. There is normal sternocleidomastoid and trapezius strength bilaterally. Tongue is midline with good strength bilaterally. Neck is with full range of motion without discomfort. There are no cervical bruits. There are no cranial or ocular bruits. Heart is without murmur. Cervical, thoracic, and lumbar spine are nontender to palpation. Gait is not tested but stance sitting up in bed is normal. With outstretched arms there is no drift. There are no resting tremors. There is no ataxia with [id number] testing. There is mild postural and action tremor right greater than left side. There is good facility in the hands. There are no abnormal involuntary movements noted. Motor strength is 4/5 bilaterally in the Th deltoids and 4+/5 in the biceps bilaterally. Triceps were 5/5 as well brachioradialis, wrist flexors and extensors, and intrinsic hand muscles with mud tank operator. Leg strength is 4/5 on the right hip flexors and quadriceps. Left is 4+/ 5. Hamstrings, tibialis anterior, tibialis posterior, Procardia, and gastrocnemius strength is 5/5. Toe extensor strength was bypassed by bilaterally. Limbs have good tone without rigidity or spasticity, and there is no atrophy noted. Muscle bulk is normal, there is no tenderness, no myotonia noted to percussion, and no fasciculations seen. Sensory examination is intact to pin and touch throughout all four limbs. Reflexes are 2/4 in the biceps, triceps, brachioradialis, quadriceps, and Achilles tendons bilaterally. Toes are downgoing with plantar stimulation bilaterally. Peripheral pulses are present and of normal quality distally in all four limbs. There is no peripheral edema noted. Laboratory Results Past 24 Hours: 01/31/17 05:15 Red Blood Count 4.17, Mean Corpuscular Volume 93.5, Mean Corpuscular Hemoglobin 28.5, Mean Corpuscular Hemoglobin Concent 30.5, Mean Platelet Volume 10.8, Neutrophils (%) (Auto) 81.3, Lymphocytes (%) (Auto) 10.4, Monocytes (%) (Auto) 7.6, Eosinophils (%) (Auto) 0.1, Basophils (%) (Auto) 0.1, Neutrophils # (Auto) 8.95, Lymphocytes # (Auto) 1.14, Monocytes # (Auto) 0.83, Eosinophils # (Auto) 0.01, Basophils # (Auto) 0.01 01/31/17 05:15 Test 01/30/17 16:08 01/31/17 01:24 01/31/17 05:15 Erythrocyte Sedimentation Rate 12 mm/hr (0-14) Activated Partial Thromboplast Time 37.6 SECONDS (21.0-31.0) Partial Thromboplastin Ratio 1.4 Phosphorus Level 2.1 mg/dl (2.5-4.9) C-Reactive Protein 5.99 mg/dl (0-0.29) Pro-B-Type Natriuretic Peptide 8173 pg/ml (0-1800) Total Creatine Kinase 491 U/L (39-308) Creatine Kinase MB 0.7 ng/ml (0.5-3.6) Creatine Kinase MB Ratio 0.1 (0-3.0) Troponin I 0.095 ng/ml (0-0.045) Chemistry Specimen Hemolysis White Blood Count 10.99 K/uL (4.8-10.8) Red Blood Count 4.17 M/uL (4.7-6.1) Hemoglobin 11.9 g/dL (14.0-18.0) Hematocrit 39.0 % (42-52) Mean Corpuscular Volume 93.5 fL (80-100) Mean Corpuscular Hemoglobin 28.5 pg (25-34) Mean Corpuscular Hemoglobin Concent 30.5 g/dl (32-36) Platelet Count 75 K/uL (130-400) Mean Platelet Volume 10.8 fL (7.4-10.4) Neutrophils (%) (Auto) 81.3 % Lymphocytes (%) (Auto) 10.4 % Monocytes (%) (Auto) 7.6 % Eosinophils (%) (Auto) 0.1 % Basophils (%) (Auto) 0.1 % Neutrophils # (Auto) 8.95 K/uL (1.4-6.5) Lymphocytes # (Auto) 1.14 K/uL (1.2-3.4) Monocytes # (Auto) 0.83 K/uL (0.11-0.59) Eosinophils # (Auto) 0.01 K/uL (0-0.5) Basophils # (Auto) 0.01 K/uL (0-0.2) RDW Standard Deviation 60.6 fL (36.4-46.3) RDW Coefficient of Variation 17.7 % (11.5-14.5) Immature Granulocyte % (Auto) 0.5 % Immature Granulocyte # (Auto) 0.05 K/uL (0.00-0.02) Platelet Estimate DECREASED Ovalocytes 1+ Prothrombin Time 23.4 SECONDS (9.0-12.0) Prothromb Time International Ratio 2.1 (0.9-1.1) Anion Gap 4.0 mmol/L (3-11) Est Creatinine Clear Calc Drug Dose 47.4 ml/min Estimated GFR () 51.7 Estimated GFR (Non- 44.6 BUN/Creatinine Ratio 17.1 (10-20) Calcium Level 7.8 mg/dl (8.5-10.1) Magnesium Level 2.3 mg/dl (1.8-2.4) Impression 1. Acute onset of proximal weakness in the legs. He also has proximal arm weakness. This pattern is consistent, overall, with a myopathy. There is no evidence for peripheral neuropathy or myelopathy. He has no meningeal signs or encephalopathy. Elevated CK is noted and may go along with the myopathy. Sedimentation rate is normal but white count was elevated. There is no obvious source of infection. Etiology of the myopathy is not readily apparent. Consideration has to be given for inflammatory, infectious, metabolic, endocrine, and medication. Unfortunately, nothing stands out for this acute picture. He does spend a lot of time outdoors and Lyme disease can imitate myopathy. Hypothyroidism can give myopathy as well. It tends to be chronic however. He has been on the statin a long time. His clinical picture is not consistent with transverse myelitis. 2. Tremor. This is a mild essential tremor with involving posture and action. There is no resting tremor, rigidity, cogwheeling, bradykinesia or any other Parkinson feature. 3. 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 He has residual weakness and numbness requiring a cane, but no new upper motor neuron or myelopathic process currently. 4. The patient may have a very mild underlying vascular dementia. Plan 1. Laboratory studies to include TSH, B-12, folate, free T4, Lyme antibody titers, aldolase 2. The patient needs an EMG and nerve conduction studies of the right arm and leg, but this will be done as an outpatient. 3. Physical and occupational therapy consults, increasing activity as able. He may benefit from a stay at [facility] after hospitalization. I think he would also benefit from a 4 wheeled walker as opposed to his bilateral cane usage. This could be verified by physical therapy. 4. I do not see a reason for steroids at this time. 5. Consider discontinuation of statin if not absolutely necessary for his care I spoke with Dr. Kidd regarding this case including differential diagnosis and treatment options.
--- NOTE | 2017-01-31 10:09 | Medical Student: [facility] ---
Med Student History & Physical Date & Time of Service: Jan 31, 2017 at 09:20 Chief Complaint: Lower Extremity Weakness Primary Care Physician: Byron Vizcaino M.D. History of Present Illness Source: patient, clinic records, hospital records 76 year old male with a significant history of cardiac disease presents to the ED with a chief complaint of bilateral leg weakness and inability to walk. He woke up yesterday and was walking without any trouble. He went to the bathroom and then sat in his armchair. After about 30 minutes, he tried to get up and was unable to do so. He fell and his had to come help him get up. After getting his canes and some time, he was able to walk outside where he sat and then tried to get up. Once again he felt like there was no power in his legs and could not get up without the help of his . His episode happened again one more time before he came to the ED. He claims that the weakness is felt blow the hips. He denies any pain, loss of balance, urinary or bladder incontinence. He does have some numbness below the knee and tingling in his feet but he states that it has been there for about 5-6 years. There is no new numbness or tingling. He did have an incidence of either transverse myelitis or ischemia to the spinal cord around T5 or T6 back in 2007 following an aortic dissection. While he also felt weakness in his legs, at that time he was also feeling pain that started at the abdominal level He also has a significant cardiac history including 6-7 cardiac surgeries, aortic dissection, aortic aneurysm, A. fib (stable now with ICD and pacemaker), Hypertension and CHF. Past Medical/Surgical History Medical Problems: (1) Aortic dissection, thoracic (2) CAD (coronary artery disease) (3) H/O thrombosis (4) COPD (5) HTN (hypertension) (6) Lower extremity weakness (7) Presence of combination internal cardiac defibrillator (ICD) and pacemaker (8) H/O Transverse myelitis Surgical Problems: (1) aortic valve replacement with cadaver valve Status: Resolved (2) aortic cadaver valve replacement with Porcine valve Status: Resolved (3) aortic porcine valve replacement with metallic valve Status: Resolved Family History Mother: when she was 93. No significant medical history Father: in his 80s. Medical history unsure. Kids: living, healthy. Social History Smoked 1/2 pack per day for about 10 years. Quit 25 years ago. 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 Smoking Status: Former Smoker Smokeless Tobacco Use: No Alcohol Use: occasionally Drug Use: none Marital Status: Housing status: lives with family Occupational Status: retired Immunizations History of Influenza Vaccine: No History of Tetanus Vaccine?: Yes History of Pneumococcal: Yes Pneumococcal Date: Apr 08, 2002 History of Hepatitis B Vaccine: No Allergies Coded Allergies: Adhesives (Verified Adverse Reaction, Mild, 0, 01/30/17) Medications Acetaminophen (Tylenol), 650 MG PO Q4HR PRN Amiodarone HCl (Amiodarone HCl), 200 MG PO QAM Aspirin (Aspirin), 81 MG PO DAILY Bumetanide (Bumex), 2 MG PO BID Docusate Sodium (Docusate Sodium), 100 MG PO BID Famotidine (Famotidine), 20 MG PO DAILY Fish Oil (Abie-3), 1 CAP PO DAILY Lecithin (Lecithin), 1,200 MG DAILY Levothyroxine Sodium (Levothyroxine Sodium), 25 MCG PO QAM Metoprolol Succinate (Toprol Xl), 100 MG PO DAILY Multivitamin (Multivitamin), 1 TAB PO DAILY Nitroglycerin (Nitrostat), 0.4 MG UT PRN Potassium Chloride (Potassium Chloride Er), 10 MEQ BID Pravastatin Sodium (Pravastatin Sodium), 40 MG HS Ramipril (Ramipril), 5 MG PO DAILY Tamsulosin HCl (Tamsulosin HCl), 0.4 MG PO HS Warfarin Sod (Coumadin), 1.25 MG PO MWF Warfarin Sod (Coumadin), 2.5 MG PO DIRECTED Review of Systems Constitutional: No fever, No chills, No sweats Eyes: No worsening of vision ENT: No hearing loss, No trouble swallowing Respiratory: + cough (chronic ) Abdomen: No pain Musculoskeletal: No joint pain, No muscle pain, No swelling Genitourinary - Male: No urinary frequency, No urinary incontinence Neurologic: + weakness (Both legs, right worse than left ), + numbness/tingling (Bilaterally below the knees and in the foot), No vertigo, No balance problems Physical Exam Vital Signs (24 Hours) Date Time Temp Pulse Resp B/P (MAP) Pulse Ox O2 Delivery O2 Flow Rate FiO2 01/31/17 08:00 93 Nasal Cannula 4.0 01/31/17 07:24 37.5 75 20 120/64 (82) 92 Nasal Cannula 4.0 01/31/17 04:02 36.8 75 23 90/44 (59) 93 Nasal Cannula 4.0 01/31/17 04:00 93 Nasal Cannula 4.0 01/31/17 02:09 37.5 91/53 (66) 01/31/17 00:33 87/47 (60) 01/31/17 00:00 92 Nasal Cannula 4.0 Humidified Oxygen 01/30/17 23:52 38.0 69 21 90/37 (54) 92 35.0 01/30/17 20:45 37.2 71 24 104/47 94 Nasal Cannula 3.0 01/30/17 19:50 74 22 106/52 92 01/30/17 18:32 72 18 129/104 92 Nasal Cannula 3.0 01/30/17 17:21 76 18 129/45 92 Nasal Cannula 4.0 01/30/17 16:18 73 01/30/17 15:18 94 Nasal Cannula 4.0 01/30/17 15:18 89 Room Air 01/30/17 15:15 60 16 108/46 93 Nasal Cannula 4.0 01/30/17 14:59 37.9 74 18 99/53 91 Room Air General Appearance: WD/WN, + mild distress (Patient appears uncomfortable) Head: normocephalic Eyes: PERRL (Pupils are very constricted ), + abnormal funduscopic exam ( Pupils are very constricted) Neck: supple Respiratory/Chest: + wheezing (mild) Cardiovascular: regular rate, rhythm, no gallop, no murmur Neurologic/Psych: alert, normal mood/affect, normal reflexes, oriented x 3 Neurological Exam: Mental Status: Alert and oriented. Able to answer basic questions and repetition is intact. He struggles a bit with calculations. Cranial Nerves: CN I-not tested CN II-visual uribe intact. Pupils are equal but small and constricted. Difficult to assess reactivity. Funduscopic exam was also unclear CN III, IV. - extraocular muscles intact CN V- sensation to the frontal, maxillary, and mandibular areas is intact CN VII-able to raise eyebrows, smile, and puff cheeks in a symmetrical manner. CN VIII-possible decreased hearing in both sides, more on the left side CN IX,X- palate is raised symmetrically CN XI-able to raise shoulders against resistance CN XII-Tongue and midline and pushes against resistance Motor: Right triceps, biceps, forearm flexors 5/5 Left triceps, biceps, forearm flexors 5/5 Right deltoid 4/5 Left deltoid 4/5 Right hip abductors, adductors 4/5 Left hip abductors, adductors 4+/5 Right lower leg 5/5 Left lower leg 5/5 Reflexes: Brachioradialis: 2+ bilaterally Biceps : 2+ bilaterally Triceps: 2+ bilaterally Knee: 2+ bilaterally Ankle: 2+ bilaterally Babinski:downward toes bilaterally Sensation: Responsive to touch and temperature bilaterally lower extremities and upper extremities. Mild reduced vibratory sensation in the distal lower extremities but intact in upper extremities. Cerebellum: Finger to nose testing was normal. No nystagmus. Mild action tremor noted. Diagnostics Laboratory Results Results Past 24 Hours Test 01/30/17 16:08 01/31/17 01:24 01/31/17 05:15 Range/Units White Blood Count 17.16 10.99 4.8-10.8 K/uL Red Blood Count 4.60 4.17 4.7-6.1 M/uL Hemoglobin 13.4 11.9 14.0-18.0 g/dL Hematocrit 42.7 39.0 42-52 % Mean Corpuscular Volume 92.8 93.5 80-100 fL Mean Corpuscular Hemoglobin 29.1 28.5 25-34 pg Mean Corpuscular Hemoglobin Concent 31.4 30.5 32-36 g/dl Platelet Count 107 75 130-400 K/uL Mean Platelet Volume 11.3 10.8 7.4-10.4 fL Neutrophils (%) (Auto) 85.9 81.3 % Lymphocytes (%) (Auto) 6.1 10.4 % Monocytes (%) (Auto) 7.2 7.6 % Eosinophils (%) (Auto) 0.0 0.1 % Basophils (%) (Auto) 0.2 0.1 % Neutrophils # (Auto) 14.73 8.95 1.4-6.5 K/uL Lymphocytes # (Auto) 1.05 1.14 1.2-3.4 K/uL Monocytes # (Auto) 1.24 0.83 0.11-0.59 K/uL Eosinophils # (Auto) 0.00 0.01 0-0.5 K/uL Basophils # (Auto) 0.03 0.01 0-0.2 K/uL RDW Standard Deviation 58.3 60.6 36.4-46.3 fL RDW Coefficient of Variation 17.1 17.7 11.5-14.5 % Immature Granulocyte % (Auto) 0.6 0.5 % Immature Granulocyte # (Auto) 0.11 0.05 0.00-0.02 K/uL Erythrocyte Sedimentation Rate 12 0-14 mm/hr Prothrombin Time 24.8 23.4 9.0-12.0 SECONDS Prothromb Time International Ratio 2.2 2.1 0.9-1.1 Activated Partial Thromboplast Time 37.6 21.0-31.0 SECONDS Partial Thromboplastin Ratio 1.4 Sodium Level 139 142 136-145 mmol/L Potassium Level 4.9 4.2 3.5-5.1 mmol/L Chloride Level 103 105 98-107 mmol/L Carbon Dioxide Level 31 33 21-32 mmol/L Anion Gap 5.0 4.0 3-11 mmol/L Blood Urea Nitrogen 24 26 7-18 mg/dl Creatinine 1.80 1.50 0.60-1.40 mg/dl Est Creatinine Clear Calc Drug Dose 39.7 47.4 ml/min Estimated GFR () 41.4 51.7 Estimated GFR (Non- 35.8 44.6 BUN/Creatinine Ratio 13.1 17.1 10-20 Random Glucose 91 93 70-99 mg/dl Calcium Level 8.3 7.8 8.5-10.1 mg/dl Phosphorus Level 2.1 2.5-4.9 mg/dl Magnesium Level 2.3 2.3 1.8-2.4 mg/dl Total Creatine Kinase 452 491 39-308 U/L Troponin I 0.079 0.095 0-0.045 ng/ml C-Reactive Protein 5.99 0-0.29 mg/dl Pro-B-Type Natriuretic Peptide 8173 0-1800 pg/ml Creatine Kinase MB 0.7 0.5-3.6 ng/ml Creatine Kinase MB Ratio 0.1 0-3.0 Chemistry Specimen Hemolysis Platelet Estimate DECREASED Ovalocytes 1+ Diagnostic Radiology CT Scan of the Spine: Cervical-mild degenerative changes Thoracic-mild degenerative changes Lumbar-Old L1 compression, mild degenerative changes, and stable dilation of the abdominal aorta CXR: Cardiomegaly and signs of congestive heart failure. other (Cardiomegaly and signs of congestive heart failure) Impression Assessment and Plan Assessment: Acute proximal muscle weakness 76 year old male presents with acute incidence of muscle weakness that is more proximal than distal in both of the lower extremities, although the right is weaker than the left. There is also some bilateral proximal weakness of the upper extremities but no weakness in the distal upper extremities. There is no new numbness, pain, or tingling. Sensation seems to be intact as well as strength in the distal muscles seems to be intact. There was nothing significant on imaging. Labs showed slight elevation of CK but normal ESR. There is little evidence that this is another episode of transverse myelitis or a neuropathy. 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 While the etiology for the myopathy is unknown, things to consider include: Endocrine-Hyper or hypothyroidism, francisca's disease Drug induced- Statins (although, he has been on statins for many years). Of note , Amiodarone has been shown to cause acute myopathy when combined with a statin as it can inhibit the PRO820 system. There were no recent changes to his medication regimen Infectious-Lyme disease, Coxsackie A and B virus, Influenza, S. aureus muscle infection Inflammatory-sarcoidosis, polymyositis, dermatomyositis, Electrolyte imbalance Mild dementia While the patient is alert and oriented, he is very slow at times when responding to questions. He can be a bit inconsistent with his account. It is possible that he has vascular dementia from chronic mild infarcts, especially with his extensive cardiac history. Tremor He has a mild essential tremor that is prominent with action and posture. Plan: 1. Order labs to evaluate thyroid (TSH, T4), lyme titers, statin levels. 2. Consider discontinuation of statins. 3. Conduct EMG studies of the arms and legs as outpatient test. 4. At this time, there is no evidence that steroids should be given. 5. PT, OT is advised. Once he is stable enough, consider a stay at [facility]. Advanced Directives Existing Living Will: No Existing Power of Health Psychologist: Yes
[2017-01-31] MEDS: ASPIRIN 81 MG ECTAB PO SCH (10:19)
[2017-01-31] MEDS: FAMOTIDINE 20 MG TAB PO SCH (10:19)
[2017-01-31] MEDS: BUMETANIDE 1 MG TAB PO SCH ×2 (10:19→17:58)
[2017-01-31 10:35] LABS: CKMB/CK RATIO 0.2 (0-3.0)
--- NOTE | 2017-01-31 11:01 | Clinical Documentation Query ---
MALLY Perez : CLINICAL DOCUMENTATION QUERY Clinical documentation includes a diagnosis of: Acute respiratory failure with hypoxia. Due to stringent requirements by our coding department, multiple clinical indicators associated with this diagnosis must be present in order for this to be coded/captured within the medical record. If appropriate, please document 2 or more of the following clinical indicators in daily progress notes and the discharge summary. If you feel the diagnosis of "acute respiratory failure with hypoxia" was made in error, or do not agree with it, simply discontinue documentation thereof. Acute Respiratory Failure indicators include: * Respirations >28 * Air hunger * Use of accessory muscles of respiration * Inability to speak in full sentences * Cyanosis * Pulse ox <90% RA or <95% on O2 *pH <7.35 or >7.45 * pO2 < 60 mm Hg (or 10mm below COPD patient's baseline) * pCO2 >50mm Hg (or 10mm above COPD patient's baseline) * mechanical ventilation * Increased work of breathing * Tachypnea ER documentation included "no acute distress", "good air entry" and "normal chest wall mechanics". H&P notes include "The patient was noted to be hypoxic in the emergency department". This was of less than one minute duration per EMR documentation and was corrected with nasal cannula. IF IN AGREEMENT, YOU MUST DOCUMENT ABOVE DIAGNOSTIC STATEMENT IN DAILY PROGRESS NOTES AND DISCHARGE SUMMARY. This document is not part of the patient's record. Thank You, Tyler Gomez, AUGUSTO [phone]
--- NOTE | 2017-01-31 11:11 | Hospitalist Progress Note ---
Hospitalist Progress Note Date of Service Jan 31, 2017. (Melissa Govea ., JUHI) Subjective Pt evaluation today including: conversation w/ patient, physical exam, chart review, lab review, review of studies, review of inpatient medication list Voiding: suggs catheter in place (draining concentrated yellow urine ) +SOB- requiring O2 supplement. SOB noted w/ conversation. +bilateral lower extremity weakness. Eating and drinking OK. Patient denies any fever, chills, sweats, lightheadedness, dizziness, vision changes, CP, palpitations, edema, wheezing, cough, abdominal pain, nausea, vomiting, diarrhea, urinary symptoms, melena, numbness/tingling, muscle/joint pain, anxiety/depression, active bleeding, or new skin discoloration/changes. (Melissa Govea ., RUDDYC) Medications Current Inpatient Medications Medications (Trade) Dose Ordered Sig/Deion Route Start Time Stop Time Status Last Admin Dose Admin Acetaminophen (Tylenol Tab) 650 mg Q4H PRN PO 01/30/17 19:15 03/01/17 19:14 01/31/17 00:09 650 MG Al Hydrox/Mg Hydrox/Simethicone (Maalox Max Susp) 15 ml Q4H PRN PO 01/30/17 19:15 03/01/17 19:14 Magnesium Hydroxide (Milk Of Magnesia Susp) 30 ml Q12H PRN PO 01/30/17 19:15 03/01/17 19:14 Ondansetron HCl (Zofran Inj) 4 mg Q6H PRN IV 01/30/17 19:15 03/01/17 19:14 Amiodarone HCl (Cordarone Tab) 200 mg QAM PO 01/31/17 09:00 03/02/17 08:59 Aspirin (Ecotrin Tab) 81 mg DAILY PO 01/31/17 09:00 03/02/17 08:59 01/31/17 10:19 81 MG Bumetanide (Bumex Tab) 2 mg BID17 PO 01/31/17 09:00 03/02/17 08:59 01/31/17 10:19 2 MG Famotidine (Pepcid Tab) 20 mg DAILY PO 01/31/17 09:00 03/02/17 08:59 01/31/17 10:19 20 MG Levothyroxine Sodium (Synthroid Tab) 25 mcg DAILYBB PO 01/31/17 06:00 03/02/17 06:59 01/31/17 06:00 25 MCG Metoprolol Succinate (Toprol Xl Tab) 100 mg DAILY PO 01/31/17 09:00 03/02/17 08:59 01/31/17 10:19 100 MG Pravastatin Sodium (Pravachol Tab) 40 mg HS PO 01/30/17 21:00 03/01/17 20:59 Future Hold 01/30/17 21:52 40 MG Tamsulosin HCl (Flomax Cap) 0.4 mg HS PO 01/30/17 21:00 03/01/17 20:59 01/30/17 21:52 0.4 MG Warfarin Sodium (Coumadin Tab) 1.25 mg MoWeFr@1600 PO 01/31/17 16:00 03/02/17 15:59 Warfarin Sodium (Coumadin Tab) 2.5 mg SuTuThSa@1600 PO 02/01/17 16:00 03/03/17 15:59 Ipratropium [place] (Atrovent 0.02% 0.5MG/2.5ML Neb) 0.5 mg Q6R PRN INH 01/30/17 20:00 03/01/17 19:59 Levalbuterol (Xopenex 1.25MG/ 0.5ML Neb) 1.25 mg Q6R PRN INH 01/30/17 20:00 03/01/17 19:59 (Melissa Govea, PA-C) Objective Vital Signs Date Time Temp Pulse Resp B/P (MAP) Pulse Ox O2 Delivery O2 Flow Rate FiO2 01/31/17 08:00 93 Nasal Cannula 4.0 01/31/17 07:24 37.5 75 20 120/64 (82) 92 Nasal Cannula 4.0 01/31/17 04:02 36.8 75 23 90/44 (59) 93 Nasal Cannula 4.0 01/31/17 04:00 93 Nasal Cannula 4.0 01/31/17 02:09 37.5 91/53 (66) 01/31/17 00:33 87/47 (60) 01/31/17 00:00 92 Nasal Cannula 4.0 Humidified Oxygen 01/30/17 23:52 38.0 69 21 90/37 (54) 92 35.0 01/30/17 20:45 37.2 71 24 104/47 94 Nasal Cannula 3.0 01/30/17 19:50 74 22 106/52 92 01/30/17 18:32 72 18 129/104 92 Nasal Cannula 3.0 01/30/17 17:21 76 18 129/45 92 Nasal Cannula 4.0 01/30/17 16:18 73 01/30/17 15:18 94 Nasal Cannula 4.0 01/30/17 15:18 89 Room Air 01/30/17 15:15 60 16 108/46 93 Nasal Cannula 4.0 01/30/17 14:59 37.9 74 18 99/53 91 Room Air (Melissa Govea, PA-C) Physical Exam General Appearance: no apparent distress, + obese, + pertinent finding (4L O2 NC; diaphoretic/fatigued appearing ) Eyes: normal inspection, PERRL ENT: hearing grossly normal Neck: supple, no JVD Respiratory/Chest: no respiratory distress, no accessory muscle use, + wheezing (slight expiratory wheeze throughout ) Cardiovascular: + tachycardia (regular rhythm ) Abdomen: normal bowel sounds, non tender, soft Extremities: no pedal edema, no calf tenderness Neurologic/Psychiatric: no motor/sensory deficits, alert, normal mood/affect, oriented x 3 Skin: normal color, warm/dry, no rash (Melissa Govea, PA-C) Laboratory Results Last 24 Hours Test 01/30/17 16:08 01/31/17 01:24 01/31/17 05:15 01/31/17 09:50 White Blood Count 17.16 K/uL 10.99 K/uL Red Blood Count 4.60 M/uL 4.17 M/uL Hemoglobin 13.4 g/dL 11.9 g/dL Hematocrit 42.7 % 39.0 % Mean Corpuscular Volume 92.8 fL 93.5 fL Mean Corpuscular Hemoglobin 29.1 pg 28.5 pg Mean Corpuscular Hemoglobin Concent 31.4 g/dl 30.5 g/dl Platelet Count 107 K/uL 75 K/uL Mean Platelet Volume 11.3 fL 10.8 fL Neutrophils (%) (Auto) 85.9 % 81.3 % Lymphocytes (%) (Auto) 6.1 % 10.4 % Monocytes (%) (Auto) 7.2 % 7.6 % Eosinophils (%) (Auto) 0.0 % 0.1 % Basophils (%) (Auto) 0.2 % 0.1 % Neutrophils # (Auto) 14.73 K/uL 8.95 K/uL Lymphocytes # (Auto) 1.05 K/uL 1.14 K/uL Monocytes # (Auto) 1.24 K/uL 0.83 K/uL Eosinophils # (Auto) 0.00 K/uL 0.01 K/uL Basophils # (Auto) 0.03 K/uL 0.01 K/uL RDW Standard Deviation 58.3 fL 60.6 fL RDW Coefficient of Variation 17.1 % 17.7 % Immature Granulocyte % (Auto) 0.6 % 0.5 % Immature Granulocyte # (Auto) 0.11 K/uL 0.05 K/uL Erythrocyte Sedimentation Rate 12 mm/hr Prothrombin Time 24.8 SECONDS 23.4 SECONDS Prothromb Time International Ratio 2.2 2.1 Activated Partial Thromboplast Time 37.6 SECONDS Partial Thromboplastin Ratio 1.4 Sodium Level 139 mmol/L 142 mmol/L Potassium Level 4.9 mmol/L 4.2 mmol/L Chloride Level 103 mmol/L 105 mmol/L Carbon Dioxide Level 31 mmol/L 33 mmol/L Anion Gap 5.0 mmol/L 4.0 mmol/L Blood Urea Nitrogen 24 mg/dl 26 mg/dl Creatinine 1.80 mg/dl 1.50 mg/dl Est Creatinine Clear Calc Drug Dose 39.7 ml/min 47.4 ml/min Estimated GFR () 41.4 51.7 Estimated GFR (Non- 35.8 44.6 BUN/Creatinine Ratio 13.1 17.1 Random Glucose 91 mg/dl 93 mg/dl Calcium Level 8.3 mg/dl 7.8 mg/dl Phosphorus Level 2.1 mg/dl Magnesium Level 2.3 mg/dl 2.3 mg/dl Total Creatine Kinase 452 U/L 491 U/L 662 U/L Troponin I 0.079 ng/ml 0.095 ng/ml 0.082 ng/ml C-Reactive Protein 5.99 mg/dl Pro-B-Type Natriuretic Peptide 8173 pg/ml Creatine Kinase MB 0.7 ng/ml 1.3 ng/ml Creatine Kinase MB Ratio 0.1 0.2 Chemistry Specimen Hemolysis Platelet Estimate DECREASED Ovalocytes 1+ (Mleissa Govea, PA-C) Assessment and Plan 76-year-old male presents emergency department with complaints of acute onset of bilateral lower extremity weakness. No appreciable pain. Sensation intact. The patient has a history of transverse myelitis. His exam is consistent with recurrence. The patient was also found to be hypoxic in the emergency department with possible exacerbation of CHF. The patient is asymptomatic. Acute respiratory failure w/ hypoxia, ?secondary to acute on chronic systolic CHF exacerbation vs COPD exacerbation vs infectious process: - Admit to telemetry for cardiac monitoring- no acute events - O2 protocol, wean as tolerated- does NOT wear O2 supplement at baseline - Lasix 40 mg IV 1 dose and continue Bumex 2 mg BID - Suggs placed- monitor I&Os and daily weights - Xopenex/ipratropium nebs q 6 hr PRN for SOB/wheezing - Repeat ECHO pending - CXR 01/30- Congestive heart failure -- If no improvement on 02/01- consider repeat CXR - Consult cardiology, appreciate recommendations Sepsis criteria: leukocytosis, spiking fevers, tachycardia, hypotension, ? secondary to infectious process- unknown source, ?PNA vs UA: - Start empiric IV Rocephin and Doxycycline for PNA, UA coverage/lyme, anaplasmosis -- ID recommends adding IV Vancomycin pending BCx- MRSA swab pending - Check lyme and anaplasmosis - Check LFTs - UA and BCx pending - Follow CBC - Consult ID, appreciate recommendations Thrombocytopenia: - Check DIC panel - Follow CBC Slightly elevated troponin, likely secondary to hypoxia and possibly renal function- asymptomatic: - Telemetry monitoring as noted above - Trend cardiac enzymes- peaked trop at 0.095 - Follow EKG QAM and PRN w/ CP Lower extremity weakness, likely secondary to myopathy: - Neurology consulted, appreciate recommendations -- Laboratory studies to include TSH, B-12, folate, free T4, Lyme antibody titers, aldolase -- Hold statin -- EMG and nerve conduction studies as an outpatient -- PT/OT - Elevated CPK- continue to trend h/o a. fib/flutter, AVR, s/p ICD placement- follows w/ Dr. Richardson: - Continue Toprol 100 mg daily, Amiodarone 200 mg QAM, ASA 81 mg daily - Continue Warfarin at current dosin.25 mg Friday, Friday, Friday, and 2.5 mg every other day- follow INR SANTHOSH on CKD, stage III, baseline Cr. 1.2 and was 1.8 on admission- IMPROVING: - Avoid nephrotoxic agents - Follow PRP Hypothyroidism: - Continue Synthroid 25 mcg daily - TSH/free T4 level 12/30/16- WNL; recheck per neurology recommendations HTN- STABLE: Ramipril 5 mg daily held due to SANTHOSH Dyslipidemia: Pravastatin 40 mg HS held per neurology recommendations Aortic dissection s/p repair of ascending aorta- noted BPH: Flomax 0.4 mg HS GI Prophylaxis: Pepcid DVT Prophylaxis: Coumadin Code Status: LEVEL V, DNR Dispo: From home- public health social worker consulted - PT/OT evaluations pending (Melissa Govea, JUHI) Reviewed: Pt Seen/Exam by Me (Sandy Kidd MD) 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 Discussed with SOTO Govea and agree with findings and plan as documented in the note. Any exceptions or clarifications are listed here: Pt is with rigors when I saw him around 1930 and BP down to 70s systolic. NS bolus 250 mL ordered, he was spiking a fever and was tachypneic, wheezing throughout, POx 90% on 4LNC. ALbuterol neb ordered as well. Discussed with pt that he has sepsis and with shock, may need pressors and central line if doesn' t respond o fluid boluses. Also at risk for developing worsening pulm edema given EF of 35% on ECHO today. He is agreeable to pressors and CVC if needed, but is reaffirming DNR/DNI status. He has been coughing today, productive of clear sputum. Vitals reviewed, tele reviewed Appears in mild resp distress with tachypnea, increased work of breathing, requiring O2, use of accessory muscles RRR, loud S2 Lungs with diffuse exp wheezing and decreased air movement throughout, decreased BS and crackles at the bases bilat Abd+ BS soft NT ND Ext no edema 76 yo male here with generalized weakness really, NOT transverse myelitis, but does have severe sepsis and shock with most likely source lungs or urine, will probably end up with bacteremia and I'm suspecting GNR given presentation. Do want to rule out other atypical causes like tick-borne illness as he has thrombocytopenia and myositis. PCT very high at 35. CXR consistent with pulm edema but also could have LLL PNA superimposed Acute hypoxemic respiratory failure/Septic shock/PNA/UTI--> keep in mind does have bovine aortic valve, pacer/ICD wires -continue Rocephin,Vanco, and doxy for now to cover for PNA, UTI, and tick- borne illness, appreciate ID consult -follow BCxs, Ur cx, sputum cx -gentle IVF boluses for hypotension given significant underlying CHF -check CXR in AM -albuterol nebs -check random cortisol, follow PCT -follow CBC -continue supplemental O2 and start BiPAP, check abg if Pulm status further declines -if BP does not respond to IVFs, transfer to ICU for pressor support Extensive Cardiac history/Demand ischemia with elevated troponin-CAD, AVR x 3, Aortic dissection, Pacer/ICD in place, chronic systolic CHF, PAF s/p DCCV-in NSR here -hold metoprolol for hypotension -monitor on tele -holding Bumex, ramipril -trended trop till peaked at 0.2, CK up at peak 600 -hold statin for elevated CK -continue ASA, coumadin, amiodarone -follow INR Documented By: Sandy Kidd (Sandy Kidd MD)
--- NOTE | 2017-01-31 12:10 | Clinical Documentation Query ---
MALLY Perez : CLINICAL DOCUMENTATION QUERY Documentation includes "history of congestive heart failure" and "CHF exacerbation". Noted is 2013 echocardiogram demonstrating an LVEF of 45% at that time. Please clarify as clinically able and appropriate. Thank you. In your clinical opinion is this patient being managed for: ( x) Acute on chronic systolic CHF ( ) Other explanation of clinical findings (Please Explain) ( ) Unable to determine (Please Define) ( ) Need to Discuss ( ) Not Agree The medical record reflects the following clinical findings, treatment, and risk factors. Clinical Indicators: As above Treatment:-Admit to telemetry -repeat echo -Lasix 40 mg IV x1 dose. -Continue Bumex 2 mg twice daily -Strict I's and O's -Insert Sandoval -Continue Toprol XL 100 mg daily -Hold ramipril for now Risk Factors: Age, CAD, hypertension Please clarify and document your clinical opinion in the progress notes and discharge summary. Terms such as "probable", "suspected", "likely", "questionable", "possible", or "still to be ruled out" are acceptable. IF IN AGREEMENT, YOU MUST DOCUMENT ABOVE DIAGNOSTIC STATEMENT IN DAILY PROGRESS NOTES AND DISCHARGE SUMMARY. This document is not part of the patient's record. Thank You, Tyler Gomez, RN [phone]
[2017-01-31] MEDS ORDERED: DOXYCYCLINE IV 100 MG in DEXTROSE 5% 100ML 100 ML IV ONE (14:00)
[2017-01-31] MEDS: CEFTRIAXONE SOD INJ 1 GM in DEXTROSE 5% ADD-VANTAGE 50ML 50 ML IV SCH (14:06)
--- NOTE | 2017-01-31 14:41 | Progress Note ---
Progress Note Date of Service Jan 31, 2017. Progress Note ID Consult Dictated # [id number] A/P: 1. Fever 2. Leukocytosis -continue abx for now, lyme titer pending, blood cultures pending would suggest adding vanco pending blood culture results -ck increasing, esr nml. unclear cause for elevation, agree with hold statin -thank you
--- NOTE | 2017-01-31 14:56 | INFECT. DISEASE CONSULTATION ---
DATE OF CONSULTATION: 01/31/2017 DATE OF CONSULTATION: 01/31/2017 REQUESTING PHYSICIAN: Dr. Leigh. HISTORY OF PRESENT ILLNESS: This is a 76-year-old gentleman who was admitted to the hospital after he had lower extremity weakness which began yesterday morning. He states today he is feeling better. He apparently has had weakness in his lower extremities for some years which has recently gotten worse. He was followed by neurology during this hospital stay. Since his admission to the hospital he has had intermittent fevers with a T-max this morning of 39.5. He denies any associated shaking or chills with this. He denies any previous history of fever or chills prior to admission. He denies any arthralgias or myalgias. He is able to ambulate without pain or difficulty. He denies any cough, shortness of breath, wheezing, chest pain. He has no nausea, vomiting, diarrhea, abdominal pain. He states his appetite and weight have been stable. He currently has a Sandoval catheter in place but does not have any urinary symptoms prior to admission. In the ER, he did have a chest x-ray which showed congestive heart failure. His BNP is elevated as well. He was placed on doxycycline and Rocephin empirically. His blood cultures are pending and just ordered prior to my examination. A Lyme study was also done per request of neurology, although the patient denies any rashes, tick bites or insect bites recently. He initially had a leukocytosis of 17,000 and has improved to 10. He has had positive cardiac enzymes and elevated CK. He denies any headache or visual changes. He denies any neck or back pain. CAT scan of the cervical, thoracic and lumbar spine were unremarkable. All remaining review of systems are unremarkable except or as noted. PAST MEDICAL HISTORY: Significant for aortic dissection with repair, aortic valve replacement in 2000, ICD placement, Afib, aflutter, CHF with an ejection fraction of 45% and chronic kidney disease. FAMILY HISTORY: Noncontributory. SOCIAL HISTORY: Significant for history of tobacco use. He quit greater than 20 years ago. He denies any alcohol or drug use. He is and lives with family. His family is at his bedside. He denies any recent sick contacts. ALLERGIES: HE IS ALLERGIC TO ADHESIVES. CURRENT MEDICATIONS: Include Coumadin, doxycycline, ceftriaxone, amiodarone, aspirin, Bumex, Pepcid, Toprol-XL, Synthroid, Flomax, Atrovent, Xopenex, Tylenol, Maalox, milk of magnesia. PHYSICAL EXAMINATION: VITAL SIGNS: He is intermittently febrile with a T-max of 39.5, pulse 100, respiratory rate 20, blood pressure is 117/58, oxygen saturation is 93% on 4 liters nasal cannula. GENERAL: He is awake, alert and oriented x3. He is in no acute distress. HEAD, EYES, EARS, NOSE, AND THROAT: Mucous membranes are moist. Extraocular muscles are intact. HEART: Without murmur. LUNGS: Clear bilaterally. ABDOMEN: Minimally distended but nontender. Bowel sounds are regular. EXTREMITIES: There is no lower extremity edema bilaterally. SKIN: Without rash. Sensation is intact. Sandoval catheter is in place. LABORATORY STUDIES: CBC today reveals a white blood cell count of 10.9, hemoglobin 11.9 and platelets are 75. Sed rate is normal at 12. Chemistry panel today reveals a sodium of 142, potassium 4.2, chloride 105, bicarbonate 33, BUN 26, creatinine 1.5 down from 1.8 yesterday, glucose is 93. Total CK was initially 452, which is increasing to 662 today. Troponins are also positive. CRP was 5.9 on admission. Lyme screen and Anaplasma screen are pending. Blood cultures are ordered and pending. IMAGING: As above. ASSESSMENT AND PLAN: 1. Fever. 2. Leukocytosis, unclear infectious etiology. He certainly appears to have a myositis whether or not this is infectious in origin is yet to be determined. I agree with blood cultures and further workup. Urinalysis and culture can be done as well. I would suggest the addition of vancomycin pending the results of blood cultures. Both the doxycycline and Rocephin would treat for tick-borne illness; however, he does not have any recent history to suggest a tick-borne illness. However, his laboratory results are pending. He is planning to have an EMG done on an outpatient basis. There was a discussion from neurology regarding discontinuation of statin. This is unclear whether or not an infectious etiology is the culprit; however, he should be maintained on broad-spectrum antibiotics pending further data. Thank you for this consultation.
[2017-01-31] MEDS ORDERED: VANCOMYCIN CONSULT ACTIVE PRN (15:00)
--- NOTE | 2017-01-31 15:00 | ECHOCARDIOGRAM REPORT ---
*NOTICE TO RECEIVING CONSTITUTION PARTY AGENCY This information is strictly Confidential and protected under [place] law. [place] law prohibits you from making any further disclosure of this information unless further disclosure is expressly permitted by the written consent of the person to whom it pertains or is authorized by law. A general authorization for the release of medical or other information is not sufficient for this purpose. Hospital accepts no responsibility if the information is made available to any other person, INCLUDING THE PATIENT. Interpretation Summary * Name: AKTHY LOREDO Study Date: 01/31/2017 06:37 AM BP: 90/44 mmHg * Patient Location: C.2T\S\S229\S\1 HR: 78 * : 1940 (M/d/yyyy) Gender: Male Height: 69 in * Age: 76 yrs Ethnicity: [place] Weight: 209 lb * Ordering Physician: Eloisa Renteria * Referring Physician: Self, Referred * Performed By: Jesusita Navarro [facility] * * Reason For Study: CHF * BSA: 2.1 m2 * -- Conclusions -- * 1. Technically limited study. * 2. Severely dilated LV with mild concentric LVH. * 3. Moderate LV dysfunction. LVEF 35-40%. Mid to apical septal and true apex akinesis. Mid to apical anterior hypokinesis. Wall motion consistent with possible LAD distribution infarct. * 4. Dilated RV with borderline RV funciton. * 5. Aortic valve sclerosis without stenosis. Trace MR * 6. Borderline PA pressures. Est PASP 35-40 mmHg. Normal estimated RA pressure. * 7. Severe biatrial enlargement. * 8. No prior studies for comparison. Procedure Details * A complete two-dimensional transthoracic echocardiogram was performed (2D, M-mode, Doppler and color flow Doppler). * The study was technically difficult. * A contrast injection of Definity was performed to improve assessment of LV function. * Contrast was injected into an intravenous site in the left arm. * One vial of Definity ultrasound contrast was diluted in normal saline to a total volume of 10 ml. A total of '2' ml of solution was administered during imaging. * Lot # [id number] of Definity utilized for procedure. * Expiration date FEB 14. * The attending nurse who injected the contrast agent was ROSE OLEARY, RN. Left Ventricle * The left ventricle is severely dilated. * There is mild concentric left ventricular hypertrophy. * Ejection Fraction = 35-40%. * Mid to apical septal and true apex akinesis. Mid to apical anterior hypokinesis. Right Ventricle * The right ventricle is mild to moderately dilated. * The right ventricular systolic function is borderline reduced. Atria * The left atrium is severely dilated. * The right atrium is severely dilated. * No ASD detected; PFO is not assessed. Mitral Valve * The mitral valve is grossly normal. * There is no mitral valve stenosis. * There is trace mitral regurgitation. Tricuspid Valve * There is mild tricuspid regurgitation. * Right ventricular systolic pressure is elevated at 30-40mmHg. Aortic Valve * The aortic valve is not well visualized. * Aortic valve sclerosis mild, without significant aortic valvular stenosis. * No hemodynamically significant valvular aortic stenosis. * There is no significant aortic regurgitation. Pulmonic Valve * The pulmonary valve is inadequately visualized, but the Doppler data is adequate for interpretation. * Pulmonic stenosis is absent. * Trace pulmonic valvular regurgitation. Great Vessels * The aortic root and proximal ascending aorta are normal sized. Pericardium/Pleural * There is no pericardial effusion. Great Vessels * Normal inferior vena cava size and collapsability with sniff indicates a normal right atrial pressure of 3 mmHg MMode 2D Measurements and Calculations IVSd 1.4 cm IVSs 1.5 cm LVIDd 5.8 cm LVIDs 5.5 cm LVPWd 1.4 cm LVPWs 1.5 cm IVS/LVPW 0.95 FS 5.4 % EDV(Teich) 167.9 ml ESV(Teich) 147.9 ml EF(Teich) 11.9 % EDV(cubed) 197.1 ml ESV(cubed) 167.1 ml EF(cubed) 15.2 % % IVS thick 8.0 % % LVPW thick 6.6 % LV mass(C)d 371.9 grams LV mass(C)dI 176.7 grams/m\S\2 LV mass(C)s 377.5 grams LV mass(C)sI 179.3 grams/m\S\2 SV(Teich) 19.9 ml SI(Teich) 9.5 ml/m\S\2 SV(cubed) 30.0 ml SI(cubed) 14.2 ml/m\S\2 Ao root diam 2.8 cm Ao root area 6.2 cm\S\2 LA dimension 5.5 cm LA/Ao 1.9 LVOT diam 2.3 cm LVOT area 4.2 cm\S\2 Doppler Measurements and Calculations MV E max lopez 66.6 cm/sec MV A max lopez 95.8 cm/sec MV E/A 0.70 MV P1/2t max lopez 110.8 cm/sec MV P1/2t 56.8 msec MVA(P1/2t) 3.9 cm\S\2 MV dec slope 571.1 cm/sec\S\2 MV dec time 0.25 sec Ao V2 max 195.5 cm/sec Ao max PG 15.3 mmHg Ao max PG (full) 11.9 mmHg TORRES(V,A) 2.0 cm\S\2 TORRES(V,D) 2.0 cm\S\2 LV V1 max PG 3.4 mmHg LV V1 max 91.8 cm/sec MR max lopez 439.4 cm/sec MR max PG 77.2 mmHg PA V2 max 107.9 cm/sec PA max PG 4.7 mmHg PI max lopez 217.2 cm/sec PI max PG 18.9 mmHg PI dec slope 319.0 cm/sec\S\2 PI P1/2t 199.4 msec TR max lopez 298.6 cm/sec
[2017-01-31 15:17] LABS: LYME DISEASE AB IGG NEG (NEG); LYME DISEASE AB IGM NEG (NEG)
--- NOTE | 2017-01-31 15:18 | Pharmacy Progress Note ---
Pharmacy Antibiotic Consult Date of Service: Jan 31, 2017. Pharmacy Dosing Scope Pharmacy is consulted to initiate vancomycin IV dosing therapy, order appropriate labs and adjust drug dose/frequency. Subjective The patient is a 76 year old male admitted on Jan 30, 2017 at 19:13 with increased leg weakness. He has an extensive cardiovascular history. Initially, patient developed leg weakness many years ago and was treated with steroids for several days. The degree of leg weakness has remained stable until yesterday when it worsened acutely. Overnight, patient has been febrile with leukocytosis (WBC has decreased from 17 on admission to 11 today). Infectious disease was consulted to evaluate patient and vancomycin was recommended to be added until blood cultures return. Objective Height (Feet): 5 Height (Inches): 9.00 Weight (Kilograms): 94.300 Lab Results (24hrs): Test 01/30/17 16:08 01/31/17 01:24 01/31/17 05:15 01/31/17 09:50 White Blood Count 17.16 K/uL (4.8-10.8) 10.99 K/uL (4.8-10.8) Red Blood Count 4.60 M/uL (4.7-6.1) 4.17 M/uL (4.7-6.1) Hemoglobin 13.4 g/dL (14.0-18.0) 11.9 g/dL (14.0-18.0) Hematocrit 42.7 % (42-52) 39.0 % (42-52) Mean Corpuscular Volume 92.8 fL (80-100) 93.5 fL (80-100) Mean Corpuscular Hemoglobin 29.1 pg (25-34) 28.5 pg (25-34) Mean Corpuscular Hemoglobin Concent 31.4 g/dl (32-36) 30.5 g/dl (32-36) Platelet Count 107 K/uL (130-400) 75 K/uL (130-400) Mean Platelet Volume 11.3 fL (7.4-10.4) 10.8 fL (7.4-10.4) Neutrophils (%) (Auto) 85.9 % 81.3 % Lymphocytes (%) (Auto) 6.1 % 10.4 % Monocytes (%) (Auto) 7.2 % 7.6 % Eosinophils (%) (Auto) 0.0 % 0.1 % Basophils (%) (Auto) 0.2 % 0.1 % Neutrophils # (Auto) 14.73 K/uL (1.4-6.5) 8.95 K/uL (1.4-6.5) Lymphocytes # (Auto) 1.05 K/uL (1.2-3.4) 1.14 K/uL (1.2-3.4) Monocytes # (Auto) 1.24 K/uL (0.11-0.59) 0.83 K/uL (0.11-0.59) Eosinophils # (Auto) 0.00 K/uL (0-0.5) 0.01 K/uL (0-0.5) Basophils # (Auto) 0.03 K/uL (0-0.2) 0.01 K/uL (0-0.2) RDW Standard Deviation 58.3 fL (36.4-46.3) 60.6 fL (36.4-46.3) RDW Coefficient of Variation 17.1 % (11.5-14.5) 17.7 % (11.5-14.5) Immature Granulocyte % (Auto) 0.6 % 0.5 % Immature Granulocyte # (Auto) 0.11 K/uL (0.00-0.02) 0.05 K/uL (0.00-0.02) Erythrocyte Sedimentation Rate 12 mm/hr (0-14) Prothrombin Time 24.8 SECONDS (9.0-12.0) 23.4 SECONDS (9.0-12.0) Prothromb Time International Ratio 2.2 (0.9-1.1) 2.1 (0.9-1.1) Activated Partial Thromboplast Time 37.6 SECONDS (21.0-31.0) Partial Thromboplastin Ratio 1.4 Sodium Level 139 mmol/L (136-145) 142 mmol/L (136-145) Potassium Level 4.9 mmol/L (3.5-5.1) 4.2 mmol/L (3.5-5.1) Chloride Level 103 mmol/L (98-107) 105 mmol/L (98-107) Carbon Dioxide Level 31 mmol/L (21-32) 33 mmol/L (21-32) Anion Gap 5.0 mmol/L (3-11) 4.0 mmol/L (3-11) Blood Urea Nitrogen 24 mg/dl (7-18) 26 mg/dl (7-18) Creatinine 1.80 mg/dl (0.60-1.40) 1.50 mg/dl (0.60-1.40) Est Creatinine Clear Calc Drug Dose 39.7 ml/min 47.4 ml/min Estimated GFR () 41.4 51.7 Estimated GFR (Non- 35.8 44.6 BUN/Creatinine Ratio 13.1 (10-20) 17.1 (10-20) Random Glucose 91 mg/dl (70-99) 93 mg/dl (70-99) Calcium Level 8.3 mg/dl (8.5-10.1) 7.8 mg/dl (8.5-10.1) Phosphorus Level 2.1 mg/dl (2.5-4.9) Magnesium Level 2.3 mg/dl (1.8-2.4) 2.3 mg/dl (1.8-2.4) C-Reactive Protein 5.99 mg/dl (0-0.29) Pro-B-Type Natriuretic Peptide 8173 pg/ml (0-1800) Total Creatine Kinase 491 U/L (39-308) 662 U/L (39-308) Creatine Kinase MB 0.7 ng/ml (0.5-3.6) 1.3 ng/ml (0.5-3.6) Creatine Kinase MB Ratio 0.1 (0-3.0) 0.2 (0-3.0) Troponin I 0.095 ng/ml (0-0.045) 0.082 ng/ml (0-0.045) Chemistry Specimen Hemolysis Platelet Estimate DECREASED Ovalocytes 1+ Test 01/31/17 13:54 Total Bilirubin 1.0 mg/dl (0.2-1) Direct Bilirubin 0.2 mg/dl (0-0.2) Aspartate Amino Transf (AST/SGOT) 41 U/L (15-37) Alanine Aminotransferase (ALT/SGPT) 48 U/L (12-78) Alkaline Phosphatase 54 U/L (45-117) Total Protein 6.1 gm/dl (6.4-8.2) Albumin 2.9 gm/dl (3.4-5.0) Assessment & Plan Loading dose: vancomycin 2350 mg IV X 1 dose then: vancomycin 1400 mg IV every 18 hours (15 mg/kg/dose; population pharmacokinetics suggest a half-life of 16 hours with an elimination constant of 0.043 hr-1). Goal peak level estimate: between 35 - 40 mcg/mL. Goal trough level estimate: between 15 - 20 mcg/mL. Since empiric indication chosen, vancomycin only active for 48 hours. No level ordered. Recommend ordering level if extended pass 48 hours. Pharmacy will continue to follow and will adjust dose/frequency as necessary. Thank you
[2017-01-31 15:29] LABS: URINE APPEARANCE CLEAR (CLEAR); URINE BILIRUBIN NEG (NEG); URINE COLOR YELLOW; URINE NITRITE NEG (NEG); URINE SPECIFIC GRAVITY 1.018 (1.000-1.030); UROBILINOGEN NEG (NEG); ZZURINE CULT IF INDIC CATH YES
[2017-01-31] MEDS ORDERED: VANCOMYCIN INJ 2,350 MG in SODIUM CHLORIDE 0.9% 500ML 500 ML IV ONE (15:30)
[2017-01-31 15:32] LABS: MANUAL MICROSCOPIC REQUIRED? NO; REVIEW REQ? YES
[2017-01-31 15:41] LABS: PARTIAL THROMBOPLASTIN RATIO 1.4
[2017-01-31] MEDS ORDERED: WARFARIN SOD 1.25 MG TAB PO SCH (16:00)
--- NOTE | 2017-01-31 16:19 | Cardiology Consultation ---
Cardiology Consultation Date of Consultation: Jan 31, 2017. Requesting Physician: Dr. Govea Reason for Consultation: CHF Pt evaluation today including: conversation w/ patient, physical exam, lab review, review of studies, review of inpatient medication list History of Present Illness This is a very pleasant 76-year-old gentleman with a long and complex cardiovascular history. 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 [employer] mechanical valve. Postoperatively he had severe aortic insufficiency, was reexplored for cardiac tampanade and mediastinal bleeding and had hemostasis obtained at that time. 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 Postoperatively he did have atrial fibrillation. He required redo aortic valve replacement in September of 2001 for a perivalvular leak and had a [employer] cadaver valve as well as single vessel bypass surgery performed at that time. His ejection fraction was 35% in September 2001 and he had an ICD subsequently implanted April 09, 2002 ([employer]onic model 7274). This was replaced October 13, [address] [employer]oni model V258, this also reached [facility] and was replaced on October 27, [address] [employer]oni Ellipse which remains in place. I believe he required repeat aortic valve replacement surgery at [facility] June 28, 2008, and on November 23, 2008 he had an abdominal aortic aneurysm repair at [facility]. An echocardiogram November 02, 2012 showed mild left ventricular dilatation and with an ejection fraction of 45 % with a properly functioning aortic valve. He he also has atrial arrhythmias identified following being seen acutely on April 25, 2010 with significant fluid retention and weight gain. He was diuresed with improvement in his symptoms and decrease in his fluid retention. He was seen for ICD followup on June 14, 2010, at that time ICD diagnostics demonstrated atrial flutter starting around April 06, 2010. It is likely that this rhythm change was a component of his development of fluid retention. I started him on warfarin anticoagulation at that time and scheduled him for cardioversion which was performed on 07/23/2010. I believe he has remained in sinus rhythm since on amiodarone and warfarin. He presents now with acute onset of lower extremity weakness which started 01/30. He was unable to stand up when he got out of bed that morning. He was observed to have slightly elevated troponins in the emergency room, and possibly congestive heart failure on chest x-ray and a moderately elevated BNP. Past Medical/Surgical History (1) Aortic dissection, thoracic (2) Transverse myelitis (3) Presence of combination internal cardiac defibrillator (ICD) and pacemaker (4) HTN (hypertension) (5) CAD (coronary artery disease) (6) H/O aortic valve replacement with porcine valve (7) History of aortic valve replacement with metallic valve Social History Smoking Status: Former Smoker History of Alcohol Use: No Review of Systems Constitutional: No fever, No weight loss, No weakness Respiratory: No cough, No wheezing, No shortness of breath, No dyspnea on exertion Cardiac: No chest pain, No orthopnea, No PND, No edema, No palpitations Abdomen: No pain, No nausea, No vomiting, No diarrhea, No GI bleeding Male : No urinary frequency, No nocturia more than once/night, No slowing stream, No sexual dysfunction Neurologic: No paralysis, No weakness, No numbness/tingling, No balance problems Heme: No abnormal bleeding/bruising, No clotting problems Endo: No fatigue Skin: No problem reported Inability to stand as noted in history of present illness All Other Systems: Reviewed and Negative Allergies Coded Allergies: Adhesives (Verified Adverse Reaction, Mild, 0, 01/30/17) Medications Current Inpatient Medications Medications (Trade) Dose Ordered Sig/Deion Route Start Time Stop Time Status Last Admin Dose Admin Acetaminophen (Tylenol Tab) 650 mg Q4H PRN PO 01/30/17 19:15 03/01/17 19:14 01/31/17 10:54 650 MG Al Hydrox/Mg Hydrox/Simethicone (Maalox Max Susp) 15 ml Q4H PRN PO 01/30/17 19:15 03/01/17 19:14 Magnesium Hydroxide (Milk Of Magnesia Susp) 30 ml Q12H PRN PO 01/30/17 19:15 03/01/17 19:14 Ondansetron HCl (Zofran Inj) 4 mg Q6H PRN IV 01/30/17 19:15 03/01/17 19:14 Amiodarone HCl (Cordarone Tab) 200 mg QAM PO 01/31/17 09:00 03/02/17 08:59 01/31/17 09:00 200 MG Aspirin (Ecotrin Tab) 81 mg DAILY PO 01/31/17 09:00 03/02/17 08:59 01/31/17 10:19 81 MG Bumetanide (Bumex Tab) 2 mg BID17 PO 01/31/17 09:00 03/02/17 08:59 01/31/17 10:19 2 MG Famotidine (Pepcid Tab) 20 mg DAILY PO 01/31/17 09:00 03/02/17 08:59 01/31/17 10:19 20 MG Levothyroxine Sodium (Synthroid Tab) 25 mcg DAILYBB PO 01/31/17 06:00 03/02/17 06:59 01/31/17 06:00 25 MCG Metoprolol Succinate (Toprol Xl Tab) 100 mg DAILY PO 01/31/17 09:00 03/02/17 08:59 01/31/17 10:19 100 MG Pravastatin Sodium (Pravachol Tab) 40 mg HS PO 01/30/17 21:00 03/01/17 20:59 Future Hold 01/30/17 21:52 40 MG Tamsulosin HCl (Flomax Cap) 0.4 mg HS PO 01/30/17 21:00 03/01/17 20:59 01/30/17 21:52 0.4 MG Warfarin Sodium (Coumadin Tab) 1.25 mg MoWeFr@1600 PO 01/31/17 16:00 03/02/17 15:59 Warfarin Sodium (Coumadin Tab) 2.5 mg SuTuThSa@1600 PO 02/01/17 16:00 03/03/17 15:59 Ipratropium [place] (Atrovent 0.02% 0.5MG/2.5ML Neb) 0.5 mg Q6R PRN INH 01/30/17 20:00 03/01/17 19:59 Levalbuterol (Xopenex 1.25MG/ 0.5ML Neb) 1.25 mg Q6R PRN INH 01/30/17 20:00 03/01/17 19:59 Ceftriaxone Sodium 1 gm/ Dextrose 50 ml @ 100 mls/hr Q24H IV 01/31/17 14:00 02/07/17 13:59 01/31/17 14:06 100 MLS/HR Doxycycline Hyclate 100 mg/ Dextrose 110 ml @ 50 mls/hr BID IV 01/31/17 21:00 02/02/17 20:59 Doxycycline Hyclate 100 mg/ Dextrose 110 ml @ 50 mls/hr 1400 ONCE IV 01/31/17 14:00 01/31/17 16:11 01/31/17 14:06 50 MLS/HR Vancomycin HCl 2350 mg/Sodium Chloride 547 ml @ 210 mls/hr NOW ONCE IV 01/31/17 15:30 01/31/17 18:06 Vancomycin HCl (Consult) 1 ea UD PRN N/A 01/31/17 15:00 03/02/17 14:59 Vancomycin HCl 1400 mg/Sodium Chloride 528 ml @ 200 mls/hr Q18H IV 02/01/17 10:00 02/02/17 23:59 Physical Exam Vital Signs Past 12 Hours Date Time Temp Pulse Resp B/P (MAP) Pulse Ox O2 Delivery O2 Flow Rate FiO2 01/31/17 12:00 93 Nasal Cannula 4.0 01/31/17 10:40 39.5 100 20 117/58 (77) 90 Nasal Cannula 4.0 01/31/17 08:00 93 Nasal Cannula 4.0 01/31/17 07:24 37.5 75 20 120/64 (82) 92 Nasal Cannula 4.0 01/31/17 04:02 36.8 75 23 90/44 (59) 93 Nasal Cannula 4.0 01/31/17 04:00 93 Nasal Cannula 4.0 Constitutional: General Apperance: heathly-appearing Level of Distress: NAD Psychiatric: Mental Status: active & alert Head: normocephalic Eyes: EOM: EOMI ENMT: normal ENT inspection, hearing grossly normal Neck: supple, no masses Lungs: Respiratory effort: no dyspnea, good air movement Auscultation: no wheezing, rales/crackles on the left, rales/crackles on the right Cardiovascular: Heart Auscultation: RRR, no rubs, no gallops, II/ NORM Peripheral Pulses: Bruits: none appreciated Abdomen: Bowel Sounds: normal Inspection & Palpation: soft, no tenderness, guarding & rebound, no masses Musculoskeletal: normal strength (5/5 throughout) Extremities: no edema Neurologic: Cranial Nerves: grossly intact Sensation: grossly intact Data Laboratory Results: Last 24 Hours Test 01/30/17 16:08 01/31/17 01:24 01/31/17 05:15 01/31/17 09:50 White Blood Count 17.16 K/uL 10.99 K/uL Red Blood Count 4.60 M/uL 4.17 M/uL Hemoglobin 13.4 g/dL 11.9 g/dL Hematocrit 42.7 % 39.0 % Mean Corpuscular Volume 92.8 fL 93.5 fL Mean Corpuscular Hemoglobin 29.1 pg 28.5 pg Mean Corpuscular Hemoglobin Concent 31.4 g/dl 30.5 g/dl Platelet Count 107 K/uL 75 K/uL Mean Platelet Volume 11.3 fL 10.8 fL Neutrophils (%) (Auto) 85.9 % 81.3 % Lymphocytes (%) (Auto) 6.1 % 10.4 % Monocytes (%) (Auto) 7.2 % 7.6 % Eosinophils (%) (Auto) 0.0 % 0.1 % Basophils (%) (Auto) 0.2 % 0.1 % Neutrophils # (Auto) 14.73 K/uL 8.95 K/uL Lymphocytes # (Auto) 1.05 K/uL 1.14 K/uL Monocytes # (Auto) 1.24 K/uL 0.83 K/uL Eosinophils # (Auto) 0.00 K/uL 0.01 K/uL Basophils # (Auto) 0.03 K/uL 0.01 K/uL RDW Standard Deviation 58.3 fL 60.6 fL RDW Coefficient of Variation 17.1 % 17.7 % Immature Granulocyte % (Auto) 0.6 % 0.5 % Immature Granulocyte # (Auto) 0.11 K/uL 0.05 K/uL Erythrocyte Sedimentation Rate 12 mm/hr Prothrombin Time 24.8 SECONDS 23.4 SECONDS Prothromb Time International Ratio 2.2 2.1 Activated Partial Thromboplast Time 37.6 SECONDS Partial Thromboplastin Ratio 1.4 Sodium Level 139 mmol/L 142 mmol/L Potassium Level 4.9 mmol/L 4.2 mmol/L Chloride Level 103 mmol/L 105 mmol/L Carbon Dioxide Level 31 mmol/L 33 mmol/L Anion Gap 5.0 mmol/L 4.0 mmol/L Blood Urea Nitrogen 24 mg/dl 26 mg/dl Creatinine 1.80 mg/dl 1.50 mg/dl Est Creatinine Clear Calc Drug Dose 39.7 ml/min 47.4 ml/min Estimated GFR () 41.4 51.7 Estimated GFR (Non- 35.8 44.6 BUN/Creatinine Ratio 13.1 17.1 Random Glucose 91 mg/dl 93 mg/dl Calcium Level 8.3 mg/dl 7.8 mg/dl Phosphorus Level 2.1 mg/dl Magnesium Level 2.3 mg/dl 2.3 mg/dl Total Creatine Kinase 452 U/L 491 U/L 662 U/L Troponin I 0.079 ng/ml 0.095 ng/ml 0.082 ng/ml C-Reactive Protein 5.99 mg/dl Pro-B-Type Natriuretic Peptide 8173 pg/ml Creatine Kinase MB 0.7 ng/ml 1.3 ng/ml Creatine Kinase MB Ratio 0.1 0.2 Chemistry Specimen Hemolysis Platelet Estimate DECREASED Ovalocytes 1+ Test 01/31/17 13:54 01/31/17 14:50 Activated Partial Thromboplast Time 36.8 SECONDS Partial Thromboplastin Ratio 1.4 Fibrinogen 432 mg/dl D-Dimer 9390 ug/L FEU Total Bilirubin 1.0 mg/dl Direct Bilirubin 0.2 mg/dl Aspartate Amino Transf (AST/SGOT) 41 U/L Alanine Aminotransferase (ALT/SGPT) 48 U/L Alkaline Phosphatase 54 U/L Total Protein 6.1 gm/dl Albumin 2.9 gm/dl Lyme Disease IgG Antibody NEG Lyme Disease IgM Antibody NEG Urine Color YELLOW Urine Appearance CLEAR Urine pH 5.0 Urine Specific [place] 1.018 Urine Protein NEG Urine Glucose (UA) NEG Urine Ketones NEG Urine Occult Blood 2+ Urine Nitrite NEG Urine Bilirubin NEG Urine Urobilinogen NEG Urine Leukocyte Esterase MODERATE Urine WBC (Auto) 10-30 /hpf Urine RBC (Auto) 10-30 /hpf Urine Hyaline Casts (Auto) 1-5 /lpf Urine Epithelial Cells (Auto) 10-20 /lpf Urine Bacteria (Auto) 1+ Imaging: Echocardiography on 01/30/2017 shows moderate left ventricular dysfunction with an ejection fraction of 35-40%, dilated left ventricle with mild concentric left ventricular hypertrophy. EKG: Electrocardiography on 01/31/2017 showed sinus rhythm with first-degree AV block, left bundle branch block with a QRS duration of 174 ms. Telemetry reviewed: Predominantly sinus rhythm (some atrial pacing) with good heart rate overall. No significant arrhythmia. Assessment & Plan #1. Elevated troponin: He has slight troponin elevation, out of 3 tests it is relatively stable and not in the range I would consider an acute infarction. He does have mild kidney disease and this can increase troponin values. He does not have symptoms to suggest myocardial ischemia. I would not pursue this further at this time. #2. Congestive heart failure: He probably does have mild congestive heart failure, his BNP is elevated and he does have left ventricular dysfunction and his chest x-ray is suggestive. Gentle diuresis would probably be in order, I will restart his diuretic. He does have a wide QRS complex which is left bundle , this would suggest dyssynchrony however his overall left ventricle ejection fraction is not low enough that I would consider a biventricular upgrade at this time. #3. Dual-chamber ICD: His ICD has been functioning well with excellent pacing and sensing characteristics in both chambers. Battery voltage has been excellent with a projected life time of over 4 years remaining. #4. Atrial fibrillation: Mr. Garcia is doing well with his arrhythmia, he has not had recurrence since his cardioversion and feels well, the device does monitor for atrial fibrillation and none has been recorded as of 01/22/2017. #5. Aortic valve replacement: His valve is functioning well both clinically and by echo. Thank you for allowing me to participate in his care.
[2017-01-31] MEDS ORDERED: NURSING VERBAL MED ORDER ONE (19:30)
[2017-01-31] MEDS ORDERED: SODIUM CHLORIDE 0.9% 250ML 250 ML IV ONE (19:30)
[2017-01-31] MEDS: TAMSULOSIN HCL 0.4 MG CAP PO SCH (20:46)
[2017-01-31] MEDS: DOXYCYCLINE IV 100 MG in DEXTROSE 5% 100ML 100 ML IV SCH (22:11)
[2017-02-01] VITALS (28 sets, daily range): BP systolic 77–133; BP diastolic 38–71; PULSE 66–82; TEMP 36.6–37.9; O2SAT 89–100
[2017-02-01] MEDS: MICONAZOLE NITRATE POWDER 43 GM EXT PRN (00:22)
[2017-02-01] MEDS ORDERED: SODIUM CHLORIDE 0.9% 500ML 500 ML IV ONE (03:15)
[2017-02-01 06:00] LABS: HEMATOCRIT 37.9 % (42-52); MEAN CELL VOLUME 94.8 fL (80-100); MEAN CORPUSCULAR HEMOGLOBIN 28.8 pg (25-34); MEAN CORPUSCULAR HGB CONC 30.3 g/dl (32-36); WHITE BLOOD COUNT 8.21 K/uL (4.8-10.8)
[2017-02-01 06:08] LABS: MEAN PLATELET VOLUME 11.2 fL (7.4-10.4); PLATELET COUNT 60 K/uL (130-400)
[2017-02-01 06:09] LABS: INR 1.4 (0.9-1.1); PROTHROMBIN TIME (PATIENT) 15.3 SECONDS (9.0-12.0)
[2017-02-01 06:20] LABS: BUN/CREATININE RATIO 17.8 (10-20); CALCIUM 7.5 mg/dl (8.5-10.1); CREATININE 1.7 mg/dl (0.60-1.40); POTASSIUM 4.2 mmol/L (3.5-5.1)
[2017-02-01] MEDS: LEVOTHYROXINE 25 MCG TAB PO SCH (06:20)
[2017-02-01 06:30] LABS: THYROID STIMULATING HORMONE 1.47 uIu/ml (0.300-4.500)
[2017-02-01 06:46] LABS: BASO % 0.1 %; BASO ABS # 0.01 K/uL (0-0.2); COMPLETE YES; IG% 0.4 %; LYMPH % 9.4 %; LYMPH ABS # 0.77 K/uL (1.2-3.4); MONO % 7.9 %; NEUT % 82.2 %; OVALOCYTES 1+
--- NOTE | 2017-02-01 07:15 | DIAGNOSTIC IMAGING REPORT ---
CHEST ONE VIEW PORTABLE CLINICAL HISTORY: Pulmonary edema. Possible pneumonia. COMPARISON STUDY: 01/30/2017 FINDINGS: The heart remains enlarged. There is continued evidence for mild pulmonary vascular congestion. There are postsurgical changes of a midline sternotomy. There is a left subclavian pacer/defibrillator present. There is elevation of the left hemidiaphragm with left basilar airspace opacities, likely atelectatic IMPRESSION: Stable findings. Persistent cardiomegaly and radiographic evidence of mild pulmonary vascular congestion. Persistent elevation of the left hemidiaphragm with left basilar airspace opacities, likely atelectatic Electronically signed by: Hernando Du M.D. 02/01/2017 7:14 AM Dictated Date/Time: 02/01/2017 7:12 AM
--- NOTE | 2017-02-01 07:58 | Neurology Progress Notes ---
Neurology Progress Note Date of Service Feb 01, 2017. Subjective Patient had a fever last night and felt considerably weak in general. This morning, he is afebrile and feels much stronger. He feels more alert. He has not tried to get up however. He denies headaches, new vision problems, confusion, any new pain or numbness in the limbs, and feels stronger than yesterday. Nursing reports no new events overnight except for the fever. During the time he had the fever, he was weaker and more confused. Echocardiogram revealed multiple cardiac abnormalities and the patient is in some congestive heart failure. White count is improved. Lyme antibody titers and thyroid studies were normal. He has positive blood cultures 2 with gram-positive cocci, final cultures are pending. He saw infectious disease were initiated antibiotics. His urine may be a source of infection. Objective Date Time Temp Pulse Resp B/P (MAP) Pulse Ox O2 Delivery O2 Flow Rate FiO2 02/01/17 06:00 36.8 69 108/65 (79) 91 02/01/17 04:00 91 Nasal Cannula 4.0 02/01/17 03:55 36.6 68 22 91/43 (59) 91 Nasal Cannula 4.0 02/01/17 03:00 87/47 (60) 02/01/17 00:00 37.9 96/52 (67) 02/01/17 00:00 92 Nasal Cannula 4.0 01/31/17 23:05 39.5 82 20 80/62 (68) 92 Nasal Cannula 4.0 01/31/17 20:45 92 128/61 (83) 01/31/17 20:00 91 Nasal Cannula 4.0 01/31/17 19:32 84 16 90 Nasal Cannula 4.0 01/31/17 19:32 37.9 77 22 78/45 (56) 91 Nasal Cannula 4.0 01/31/17 16:07 37.1 73 20 83/44 (57) 95 Nasal Cannula 4.0 01/31/17 16:00 Nasal Cannula 4.0 01/31/17 12:00 93 Nasal Cannula 4.0 01/31/17 10:40 39.5 100 20 117/58 (77) 90 Nasal Cannula 4.0 01/31/17 08:00 93 Nasal Cannula 4.0 Last 24 Hours Test 01/31/17 09:50 01/31/17 13:54 01/31/17 14:50 01/31/17 15:59 Total Creatine Kinase 662 U/L 592 U/L Creatine Kinase MB 1.3 ng/ml Creatine Kinase MB Ratio 0.2 Troponin I 0.082 ng/ml 0.217 ng/ml Activated Partial Thromboplast Time 36.8 SECONDS Partial Thromboplastin Ratio 1.4 Fibrinogen 432 mg/dl D-Dimer 9390 ug/L FEU Total Bilirubin 1.0 mg/dl Direct Bilirubin 0.2 mg/dl Aspartate Amino Transf (AST/SGOT) 41 U/L Alanine Aminotransferase (ALT/SGPT) 48 U/L Alkaline Phosphatase 54 U/L Total Protein 6.1 gm/dl Albumin 2.9 gm/dl Lyme Disease IgG Antibody NEG Lyme Disease IgM Antibody NEG Urine Color YELLOW Urine Appearance CLEAR Urine pH 5.0 Urine Specific [place] 1.018 Urine Protein NEG Urine Glucose (UA) NEG Urine Ketones NEG Urine Occult Blood 2+ Urine Nitrite NEG Urine Bilirubin NEG Urine Urobilinogen NEG Urine Leukocyte Esterase MODERATE Urine WBC (Auto) 10-30 /hpf Urine RBC (Auto) 10-30 /hpf Urine Hyaline Casts (Auto) 1-5 /lpf Urine Epithelial Cells (Auto) 10-20 /lpf Urine Bacteria (Auto) 1+ Test 01/31/17 21:56 02/01/17 05:11 Lactic Acid Level 1.3 mmol/L Total Creatine Kinase 583 U/L Troponin I 0.188 ng/ml Procalcitonin 35.89 ng/ml 28.20 ng/ml White Blood Count 8.21 K/uL Red Blood Count 4.00 M/uL Hemoglobin 11.5 g/dL Hematocrit 37.9 % Mean Corpuscular Volume 94.8 fL Mean Corpuscular Hemoglobin 28.8 pg Mean Corpuscular Hemoglobin Concent 30.3 g/dl Platelet Count 60 K/uL Mean Platelet Volume 11.2 fL Neutrophils (%) (Auto) 82.2 % Lymphocytes (%) (Auto) 9.4 % Monocytes (%) (Auto) 7.9 % Eosinophils (%) (Auto) 0.0 % Basophils (%) (Auto) 0.1 % Neutrophils # (Auto) 6.75 K/uL Lymphocytes # (Auto) 0.77 K/uL Monocytes # (Auto) 0.65 K/uL Eosinophils # (Auto) 0.00 K/uL Basophils # (Auto) 0.01 K/uL RDW Standard Deviation 61.6 fL RDW Coefficient of Variation 17.5 % Immature Granulocyte % (Auto) 0.4 % Immature Granulocyte # (Auto) 0.03 K/uL Ovalocytes 1+ Prothrombin Time 15.3 SECONDS Prothromb Time International Ratio 1.4 Sodium Level 142 mmol/L Potassium Level 4.2 mmol/L Chloride Level 105 mmol/L Carbon Dioxide Level 32 mmol/L Anion Gap 5.0 mmol/L Blood Urea Nitrogen 30 mg/dl Creatinine 1.70 mg/dl Est Creatinine Clear Calc Drug Dose 41.9 ml/min Estimated GFR () 44.4 Estimated GFR (Non- 38.3 BUN/Creatinine Ratio 17.8 Random Glucose 111 mg/dl Calcium Level 7.5 mg/dl Thyroid Stimulating Hormone (TSH) 1.470 uIu/ml Free Thyroxine 1.30 ng/dl Exam: He is awake and alert. Speech is hoarse as before. He is pleasant and cooperative. Thought processes seem grossly intact this morning. Extraocular eye muscles are intact without nystagmus. There is no facial droop. With outstretched arms, there is no drift. There is no resting tremor, although there is very mild postural and action tremor right greater than left side. Strength is 4/5 in the right deltoid and 4+/5 in the left deltoid. Triceps seem 4+/5 bilaterally in biceps, brachioradialis, wrist extensors, manager export and intrinsic hand muscles seem closer to 5/5 bilaterally. Right hip flexor is 4/5. The left is 4+/5. Quadriceps are 4+/5 bilaterally and distally in the tibialis anterior gastrocnemius muscles are 5/5 bilaterally. Current Inpatient Medications Medications (Trade) Dose Ordered Sig/Deion Route Start Time Stop Time Status Last Admin Dose Admin Acetaminophen (Tylenol Tab) 650 mg Q4H PRN PO 01/30/17 19:15 03/01/17 19:14 01/31/17 23:17 650 MG Al Hydrox/Mg Hydrox/Simethicone (Maalox Max Susp) 15 ml Q4H PRN PO 01/30/17 19:15 03/01/17 19:14 Magnesium Hydroxide (Milk Of Magnesia Susp) 30 ml Q12H PRN PO 01/30/17 19:15 03/01/17 19:14 Ondansetron HCl (Zofran Inj) 4 mg Q6H PRN IV 01/30/17 19:15 03/01/17 19:14 Amiodarone HCl (Cordarone Tab) 200 mg QAM PO 01/31/17 09:00 03/02/17 08:59 01/31/17 09:00 200 MG Aspirin (Ecotrin Tab) 81 mg DAILY PO 01/31/17 09:00 03/02/17 08:59 01/31/17 10:19 81 MG Bumetanide (Bumex Tab) 2 mg BID17 PO 01/31/17 09:00 03/02/17 08:59 Future Hold 01/31/17 17:58 2 MG Famotidine (Pepcid Tab) 20 mg DAILY PO 01/31/17 09:00 03/02/17 08:59 01/31/17 10:19 20 MG Levothyroxine Sodium (Synthroid Tab) 25 mcg DAILYBB PO 01/31/17 06:00 03/02/17 06:59 02/01/17 06:20 25 MCG Metoprolol Succinate (Toprol Xl Tab) 100 mg DAILY PO 01/31/17 09:00 03/02/17 08:59 Future Hold 01/31/17 10:19 100 MG Pravastatin Sodium (Pravachol Tab) 40 mg HS PO 01/30/17 21:00 03/01/17 20:59 Future Hold 01/30/17 21:52 40 MG Tamsulosin HCl (Flomax Cap) 0.4 mg HS PO 01/30/17 21:00 03/01/17 20:59 Future Hold 01/30/17 21:52 0.4 MG Warfarin Sodium (Coumadin Tab) 1.25 mg MoWeFr@1600 PO 01/31/17 16:00 03/02/17 15:59 01/31/17 16:00 1.25 MG Warfarin Sodium (Coumadin Tab) 2.5 mg SuTuThSa@1600 PO 02/01/17 16:00 03/03/17 15:59 Ipratropium [place] (Atrovent 0.02% 0.5MG/2.5ML Neb) 0.5 mg Q6R PRN INH 01/30/17 20:00 03/01/17 19:59 01/31/17 19:32 0.5 MG Levalbuterol (Xopenex 1.25MG/ 0.5ML Neb) 1.25 mg Q6R PRN INH 01/30/17 20:00 03/01/17 19:59 01/31/17 19:32 1.25 MG Ceftriaxone Sodium 1 gm/ Dextrose 50 ml @ 100 mls/hr Q24H IV 01/31/17 14:00 02/07/17 13:59 01/31/17 14:06 100 MLS/HR Doxycycline Hyclate 100 mg/ Dextrose 110 ml @ 50 mls/hr BID IV 01/31/17 21:00 02/02/17 20:59 01/31/17 22:11 50 MLS/HR Vancomycin HCl (Consult) 1 ea UD PRN N/A 01/31/17 15:00 03/02/17 14:59 Vancomycin HCl 1400 mg/Sodium Chloride 528 ml @ 200 mls/hr Q18H IV 02/01/17 10:00 02/02/17 23:59 Miconazole Nitrate (Desenex Powder) 1 appln UD PRN EXT 01/31/17 19:00 03/02/17 18:59 02/01/17 00:22 1 APPLN Impression 1. Acute onset of proximal weakness in the legs. He also has proximal arm weakness. This pattern is consistent, overall, with a myopathy. Clinically he is improved today compared to yesterday with his strength. There is no evidence for peripheral neuropathy or myelopathy, therefore not consistent with transverse myelitis. He has no meningeal signs or encephalopathy. Elevated CK is noted and may go along with the myopathy. Sedimentation rate is normal but white count was elevated. Etiology of the myopathy is most likely secondary to an acute infectious process , consistent with sepsis, creating a so-called "critical illness" myopathy. He does have positive blood cultures 2 although final cultures are pending, fever , and hypotension. Urine testing suggests possible infection source also. He does not seem to have an obvious endocrine source and was not on steroids recently. He has been on statins since at least 2010 and has been on amiodarone since 2012. Combination of these 2 medications can create myopathy. He has no evidence of Lyme disease. 2. Tremor. This is a very mild essential tremor with involving posture and action. There is no resting tremor, rigidity, cogwheeling, bradykinesia or any other Parkinson feature. 3. 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 He has residual weakness and numbness requiring a cane, but no new upper motor neuron or myelopathic process currently. 4. 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 Plan 1. If the patient does not improve, he needs an EMG and nerve conduction studies of the right arm and leg, but this will be done as an outpatient. 2. Physical and occupational therapy consults, increasing activity as able. I suspect his stay at [facility] after hospitalization would be quite beneficial for this patient. I think he would also benefit from a 4 wheeled walker as opposed to his bilateral cane usage. This could be verified by physical therapy. 3. Because of his chronic hoarse voice, and his desire to know if something can be done, we could get a speech therapy consult. As an outpatient, ENT could be consulted. 4. I see no reason for steroids at this time. 5. Continue discontinuation of statin I spoke with Dr. Kidd regarding this case.
[2017-02-01] MEDS: ASPIRIN 81 MG ECTAB PO SCH (07:59)
[2017-02-01] MEDS: AMIODARONE 200 MG TAB PO SCH (07:59)
[2017-02-01] MEDS: FAMOTIDINE 20 MG TAB PO SCH (08:00)
[2017-02-01] MEDS ORDERED: VANCOMYCIN INJ 1,400 MG in SODIUM CHLORIDE 0.9% 500ML 500 ML IV SCH (08:00)
[2017-02-01] MEDS: DOXYCYCLINE IV 100 MG in DEXTROSE 5% 100ML 100 ML IV SCH ×2 (08:47→20:52)
--- NOTE | 2017-02-01 09:05 | Cardiology Follow-Up ---
Subjective Date of Service: Feb 01, 2017. Pt evaluation today including: conversation w/ patient, physical exam, lab review, review of studies, review of inpatient medication list History of Present Illness This is a very pleasant 76-year-old gentleman with a long and complex cardiovascular history. 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 [employer] mechanical valve. Postoperatively he had severe aortic insufficiency, was reexplored for cardiac tampanade and mediastinal bleeding and had hemostasis obtained at that time. 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 Postoperatively he did have atrial fibrillation. He required redo aortic valve replacement in September of 2001 for a perivalvular leak and had a [employer] cadaver valve as well as single vessel bypass surgery performed at that time. His ejection fraction was 35% in September 2001 and he had an ICD subsequently implanted April 09, 2002 ([employer]tronic model 7274). This was replaced October 13, [address] [employer]oni model V258, this also reached [facility] and was replaced on October 27, [address] [employer]oni Ellipse which remains in place. I believe he required repeat aortic valve replacement surgery at [facility] June 28, 2008, and on November 23, 2008 he had an abdominal aortic aneurysm repair at [facility]. An echocardiogram November 02, 2012 showed mild left ventricular dilatation and with an ejection fraction of 45 % with a properly functioning aortic valve. He he also has atrial arrhythmias identified following being seen acutely on April 25, 2010 with significant fluid retention and weight gain. He was diuresed with improvement in his symptoms and decrease in his fluid retention. He was seen for ICD followup on June 14, 2010, at that time ICD diagnostics demonstrated atrial flutter starting around April 06, 2010. It is likely that this rhythm change was a component of his development of fluid retention. I started him on warfarin anticoagulation at that time and scheduled him for cardioversion which was performed on 07/23/2010. I believe he has remained in sinus rhythm since on amiodarone and warfarin. He presents now with acute onset of lower extremity weakness which started 01/30. He was unable to stand up when he got out of bed that morning. He was observed to have slightly elevated troponins in the emergency room, and possibly congestive heart failure on chest x-ray and a moderately elevated BNP. He has also had a fever, leukocytosis and positive blood cultures. He feels better this morning, he reports waking up at night confused with a fever and it took him a while to get his bearings. This morning he feels well. He is still not back to normal but he feels stronger. Social History Smoking Status: Former Smoker History of Alcohol Use: No Review of Systems Respiratory: No cough, No wheezing, No shortness of breath, No dyspnea on exertion Cardiac: No chest pain, No orthopnea, No PND, No edema, No palpitations Inability to stand as noted in history of present illness Medications Cardiovascular: Item Value Date Time Warfarin Sodium 2.5 mg 02/01/17 1600 (Coumadin Tab) SuTuThSa@1600/PO Warfarin Sodium 1.25 mg 01/31/17 1600 (Coumadin Tab) MoWeFr@1600/PO 01/31/17 1600 Amiodarone HCl 200 mg 01/31/17 0900 (Cordarone Tab) QAM/PO 02/01/17 0759 Objective Vital Signs Past 12 Hours Date Time Temp Pulse Resp B/P (MAP) Pulse Ox O2 Delivery O2 Flow Rate FiO2 02/01/17 07:58 73 18 92/55 (67) 95 6.0 02/01/17 07:30 91 Nasal Cannula 6.0 02/01/17 06:00 36.8 69 108/65 (79) 91 02/01/17 04:00 91 Nasal Cannula 4.0 02/01/17 03:55 36.6 68 22 91/43 (59) 91 Nasal Cannula 4.0 02/01/17 03:00 87/47 (60) 02/01/17 00:00 37.9 96/52 (67) 02/01/17 00:00 92 Nasal Cannula 4.0 01/31/17 23:05 39.5 82 20 80/62 (68) 92 Nasal Cannula 4.0 Last Recorded Weight-Kilograms: 95.100 Physical Exam Constitutional: General Apperance: heathly-appearing Level of Distress: NAD Lungs: Respiratory effort: no dyspnea, good air movement Auscultation: no wheezing, rales/crackles on the left, rales/crackles on the right Cardiovascular: Heart Auscultation: RRR, no rubs, no gallops, II/ NORM Peripheral Pulses: Bruits: none appreciated Extremities: no edema Data Laboratory Results: Last 24 Hours Test 01/31/17 09:50 01/31/17 13:54 01/31/17 14:50 01/31/17 15:59 Total Creatine Kinase 662 U/L 592 U/L Creatine Kinase MB 1.3 ng/ml Creatine Kinase MB Ratio 0.2 Troponin I 0.082 ng/ml 0.217 ng/ml Activated Partial Thromboplast Time 36.8 SECONDS Partial Thromboplastin Ratio 1.4 Fibrinogen 432 mg/dl D-Dimer 9390 ug/L FEU Total Bilirubin 1.0 mg/dl Direct Bilirubin 0.2 mg/dl Aspartate Amino Transf (AST/SGOT) 41 U/L Alanine Aminotransferase (ALT/SGPT) 48 U/L Alkaline Phosphatase 54 U/L Total Protein 6.1 gm/dl Albumin 2.9 gm/dl Lyme Disease IgG Antibody NEG Lyme Disease IgM Antibody NEG Urine Color YELLOW Urine Appearance CLEAR Urine pH 5.0 Urine Specific [place] 1.018 Urine Protein NEG Urine Glucose (UA) NEG Urine Ketones NEG Urine Occult Blood 2+ Urine Nitrite NEG Urine Bilirubin NEG Urine Urobilinogen NEG Urine Leukocyte Esterase MODERATE Urine WBC (Auto) 10-30 /hpf Urine RBC (Auto) 10-30 /hpf Urine Hyaline Casts (Auto) 1-5 /lpf Urine Epithelial Cells (Auto) 10-20 /lpf Urine Bacteria (Auto) 1+ Test 01/31/17 21:56 02/01/17 05:11 Lactic Acid Level 1.3 mmol/L Total Creatine Kinase 583 U/L Troponin I 0.188 ng/ml Procalcitonin 35.89 ng/ml 28.20 ng/ml White Blood Count 8.21 K/uL Red Blood Count 4.00 M/uL Hemoglobin 11.5 g/dL Hematocrit 37.9 % Mean Corpuscular Volume 94.8 fL Mean Corpuscular Hemoglobin 28.8 pg Mean Corpuscular Hemoglobin Concent 30.3 g/dl Platelet Count 60 K/uL Mean Platelet Volume 11.2 fL Neutrophils (%) (Auto) 82.2 % Lymphocytes (%) (Auto) 9.4 % Monocytes (%) (Auto) 7.9 % Eosinophils (%) (Auto) 0.0 % Basophils (%) (Auto) 0.1 % Neutrophils # (Auto) 6.75 K/uL Lymphocytes # (Auto) 0.77 K/uL Monocytes # (Auto) 0.65 K/uL Eosinophils # (Auto) 0.00 K/uL Basophils # (Auto) 0.01 K/uL RDW Standard Deviation 61.6 fL RDW Coefficient of Variation 17.5 % Immature Granulocyte % (Auto) 0.4 % Immature Granulocyte # (Auto) 0.03 K/uL Ovalocytes 1+ Prothrombin Time 15.3 SECONDS Prothromb Time International Ratio 1.4 Sodium Level 142 mmol/L Potassium Level 4.2 mmol/L Chloride Level 105 mmol/L Carbon Dioxide Level 32 mmol/L Anion Gap 5.0 mmol/L Blood Urea Nitrogen 30 mg/dl Creatinine 1.70 mg/dl Est Creatinine Clear Calc Drug Dose 41.9 ml/min Estimated GFR () 44.4 Estimated GFR (Non- 38.3 BUN/Creatinine Ratio 17.8 Random Glucose 111 mg/dl Calcium Level 7.5 mg/dl Vitamin B12 Level 640 pg/mL Folate 23.73 ng/mL Thyroid Stimulating Hormone (TSH) 1.470 uIu/ml Free Thyroxine 1.30 ng/dl Random Cortisol 21.17 mcg/dl EKG: Sinus rhythm, first-degree AV block, left bundle branch block. Similar to prior. Telemetry reviewed: Sinus rhythm with intact AV conduction, heart rate appropriate. Assessment and Plan #1. Elevated troponin: He has slight troponin elevation, but it was relatively stable and not in the range I would consider an acute infarction. He does have mild kidney disease and this can increase troponin values. He does not have symptoms to suggest myocardial ischemia. Probably related to sepsis. I would not pursue this further at this time. #2. Congestive heart failure: He probably does have mild congestive heart failure, his BNP is elevated and he does have left ventricular dysfunction and his chest x-ray is suggestive. Gentle diuresis would probably be in order, his weight has been climbing. I will increase his diuretic. He does have a wide QRS complex which is left bundle, this would suggest dyssynchrony however his overall left ventricle ejection fraction is not low enough that I would consider a biventricular upgrade at this time. That may be a future consideration. #3. Dual-chamber ICD: His ICD has been functioning well with excellent pacing and sensing characteristics in both chambers when recently evaluated in the office. Battery voltage has been excellent with a projected life time of over 4 years remaining. That probably does not need to be evaluated now. #4. Atrial fibrillation: Mr. Garcia is doing well with his arrhythmia, he has not had recurrence since his cardioversion years ago and feels well, the device does monitor for atrial fibrillation and none has been recorded recently as of 01/22/2017. #5. Aortic valve replacement: His valve is functioning well both clinically and by echo. #6. Positive blood cultures: 2 out of 2 positive from 01/31/2017 for gram- positive cocci. Sensitivities pending. Worrisome in view of his cardiovascular hardware in place. Consider ID input to determine duration and type of treatment to minimize risk of endocarditis. Thank you for allowing me to participate in his care.
[2017-02-01] MEDS ORDERED: PANTOprazole SOD 40 MG TAB PO ONE (09:26)
--- NOTE | 2017-02-01 09:50 | Progress Note ---
Subjective Date of Service: Feb 01, 2017. Subjective pt placed on vanco yesterday, pending blood cultures, now with 2/2 sets + gpc. ID pending. had fever overnight as well, currently afebrile. tolerating abx. urine culture pending but UA abnml with bacteria, wbc. cardio following, has ICD in place. concerning for infection with 2/2 sets + gpc. wbc improved today. Objective Vital Signs Date Time Temp Pulse Resp B/P (MAP) Pulse Ox O2 Delivery O2 Flow Rate FiO2 02/01/17 07:58 73 18 92/55 (67) 95 6.0 02/01/17 07:30 91 Nasal Cannula 6.0 02/01/17 06:00 36.8 69 108/65 (79) 91 02/01/17 04:00 91 Nasal Cannula 4.0 02/01/17 03:55 36.6 68 22 91/43 (59) 91 Nasal Cannula 4.0 02/01/17 03:00 87/47 (60) 02/01/17 00:00 37.9 96/52 (67) 02/01/17 00:00 92 Nasal Cannula 4.0 01/31/17 23:05 39.5 82 20 80/62 (68) 92 Nasal Cannula 4.0 01/31/17 20:45 92 128/61 (83) 01/31/17 20:00 91 Nasal Cannula 4.0 01/31/17 19:32 84 16 90 Nasal Cannula 4.0 01/31/17 19:32 37.9 77 22 78/45 (56) 91 Nasal Cannula 4.0 01/31/17 16:07 37.1 73 20 83/44 (57) 95 Nasal Cannula 4.0 01/31/17 16:00 Nasal Cannula 4.0 01/31/17 12:00 93 Nasal Cannula 4.0 01/31/17 10:40 39.5 100 20 117/58 (77) 90 Nasal Cannula 4.0 Laboratory Results Item Value Date Time Blood Culture - Preliminary Resulted 01/31/17 1344 Blood Gram Positive Cocci Blood Culture - Preliminary Resulted 01/31/17 1354 Blood Gram Positive Cocci Last 24 Hours Test 01/31/17 09:50 01/31/17 13:54 01/31/17 14:50 01/31/17 15:59 Total Creatine Kinase 662 U/L 592 U/L Creatine Kinase MB 1.3 ng/ml Creatine Kinase MB Ratio 0.2 Troponin I 0.082 ng/ml 0.217 ng/ml Activated Partial Thromboplast Time 36.8 SECONDS Partial Thromboplastin Ratio 1.4 Fibrinogen 432 mg/dl D-Dimer 9390 ug/L FEU Total Bilirubin 1.0 mg/dl Direct Bilirubin 0.2 mg/dl Aspartate Amino Transf (AST/SGOT) 41 U/L Alanine Aminotransferase (ALT/SGPT) 48 U/L Alkaline Phosphatase 54 U/L Total Protein 6.1 gm/dl Albumin 2.9 gm/dl Lyme Disease IgG Antibody NEG Lyme Disease IgM Antibody NEG Urine Color YELLOW Urine Appearance CLEAR Urine pH 5.0 Urine Specific [place] 1.018 Urine Protein NEG Urine Glucose (UA) NEG Urine Ketones NEG Urine Occult Blood 2+ Urine Nitrite NEG Urine Bilirubin NEG Urine Urobilinogen NEG Urine Leukocyte Esterase MODERATE Urine WBC (Auto) 10-30 /hpf Urine RBC (Auto) 10-30 /hpf Urine Hyaline Casts (Auto) 1-5 /lpf Urine Epithelial Cells (Auto) 10-20 /lpf Urine Bacteria (Auto) 1+ Test 01/31/17 21:56 02/01/17 05:11 Lactic Acid Level 1.3 mmol/L Total Creatine Kinase 583 U/L Troponin I 0.188 ng/ml Procalcitonin 35.89 ng/ml 28.20 ng/ml White Blood Count 8.21 K/uL Red Blood Count 4.00 M/uL Hemoglobin 11.5 g/dL Hematocrit 37.9 % Mean Corpuscular Volume 94.8 fL Mean Corpuscular Hemoglobin 28.8 pg Mean Corpuscular Hemoglobin Concent 30.3 g/dl Platelet Count 60 K/uL Mean Platelet Volume 11.2 fL Neutrophils (%) (Auto) 82.2 % Lymphocytes (%) (Auto) 9.4 % Monocytes (%) (Auto) 7.9 % Eosinophils (%) (Auto) 0.0 % Basophils (%) (Auto) 0.1 % Neutrophils # (Auto) 6.75 K/uL Lymphocytes # (Auto) 0.77 K/uL Monocytes # (Auto) 0.65 K/uL Eosinophils # (Auto) 0.00 K/uL Basophils # (Auto) 0.01 K/uL RDW Standard Deviation 61.6 fL RDW Coefficient of Variation 17.5 % Immature Granulocyte % (Auto) 0.4 % Immature Granulocyte # (Auto) 0.03 K/uL Ovalocytes 1+ Prothrombin Time 15.3 SECONDS Prothromb Time International Ratio 1.4 Sodium Level 142 mmol/L Potassium Level 4.2 mmol/L Chloride Level 105 mmol/L Carbon Dioxide Level 32 mmol/L Anion Gap 5.0 mmol/L Blood Urea Nitrogen 30 mg/dl Creatinine 1.70 mg/dl Est Creatinine Clear Calc Drug Dose 41.9 ml/min Estimated GFR () 44.4 Estimated GFR (Non- 38.3 BUN/Creatinine Ratio 17.8 Random Glucose 111 mg/dl Calcium Level 7.5 mg/dl Vitamin B12 Level 640 pg/mL Folate 23.73 ng/mL Thyroid Stimulating Hormone (TSH) 1.470 uIu/ml Free Thyroxine 1.30 ng/dl Random Cortisol 21.17 mcg/dl Assessment and Plan (1) Gram positive septicemia Assessment & Plan: continue vanco pending additional micro data, will repeat blood cultures today x 2. will need eval of ICD leads to r/o IE. WILLI preferable if able. Await ID sensitivities GPC. Suspect he will require prolonged course of IV abx, will need to clear blood cultures prior to picc placement. final recs based on echo findings and ID or gpc in blood. will repeat cultures. (2) Fever
[2017-02-01] MEDS ORDERED: BUMETANIDE 1 MG TAB PO ONE (10:30)
[2017-02-01] MEDS: VANCOMYCIN INJ 1,400 MG in SODIUM CHLORIDE 0.9% 500ML 500 ML IV SCH (11:26)
[2017-02-01] MEDS: CEFTRIAXONE SOD INJ 1 GM in DEXTROSE 5% ADD-VANTAGE 50ML 50 ML IV SCH (14:37)
[2017-02-01] MEDS ORDERED: WARFARIN SOD 2.5 MG TAB PO SCH (16:00)
[2017-02-01] MEDS: BUMETANIDE 1 MG TAB PO SCH (16:16)
--- NOTE | 2017-02-01 18:13 | Hospitalist Progress Note ---
Hospitalist Progress Note Date of Service Feb 01, 2017. Subjective Pt evaluation today including: conversation w/ patient, conversation w/ family Voiding: suggs catheter in place Pt still with low BPs today that are responding to IVF boluses. He feels his breathing is better. Fevers have defervesced, WBC count down. Growing 2/2 sets of BCxs with GPC. Currently BP 76 systolic, giving another 500 mL bolus NS and skilled nursing through, BP did not come up at all. He denies lightheadedness, no CP. All Other Systems: Reviewed and Negative Objective Vital Signs Date Time Temp Pulse Resp B/P (MAP) Pulse Ox O2 Delivery O2 Flow Rate FiO2 02/01/17 16:00 96 Nasal Cannula 4.0 02/01/17 14:45 36.8 66 22 77/51 (60) 97 Nasal Cannula 4.0 02/01/17 11:40 95 Nasal Cannula 4.0 02/01/17 11:39 36.9 67 20 85/38 (54) 95 Nasal Cannula 4.0 02/01/17 07:58 73 18 92/55 (67) 95 6.0 02/01/17 07:30 91 Nasal Cannula 6.0 02/01/17 06:00 36.8 69 108/65 (79) 91 02/01/17 04:00 91 Nasal Cannula 4.0 02/01/17 03:55 36.6 68 22 91/43 (59) 91 Nasal Cannula 4.0 02/01/17 03:00 87/47 (60) 02/01/17 00:00 37.9 96/52 (67) 02/01/17 00:00 92 Nasal Cannula 4.0 01/31/17 23:05 39.5 82 20 80/62 (68) 92 Nasal Cannula 4.0 01/31/17 20:45 92 128/61 (83) 01/31/17 20:00 91 Nasal Cannula 4.0 01/31/17 19:32 84 16 90 Nasal Cannula 4.0 01/31/17 19:32 37.9 77 22 78/45 (56) 91 Nasal Cannula 4.0 Physical Exam General Appearance: WD/WN, no apparent distress Eyes: normal inspection, sclerae normal ENT: hearing grossly normal Neck: trachea midline Respiratory/Chest: no respiratory distress, no accessory muscle use, + crackles (at bases, +diffuse wheezes but improved from yesterday, moving air better today) Cardiovascular: regular rate, rhythm, no edema, no murmur (but with loud S2) Abdomen: normal bowel sounds, non tender, soft Extremities: non-tender, normal inspection, no pedal edema, no calf tenderness Neurologic/Psychiatric: alert, normal mood/affect, oriented x 3 Skin: normal color, warm/dry, no rash Laboratory Results Last 24 Hours Test 01/31/17 21:56 02/01/17 05:11 Lactic Acid Level 1.3 mmol/L Total Creatine Kinase 583 U/L Troponin I 0.188 ng/ml Procalcitonin 35.89 ng/ml 28.20 ng/ml White Blood Count 8.21 K/uL Red Blood Count 4.00 M/uL Hemoglobin 11.5 g/dL Hematocrit 37.9 % Mean Corpuscular Volume 94.8 fL Mean Corpuscular Hemoglobin 28.8 pg Mean Corpuscular Hemoglobin Concent 30.3 g/dl Platelet Count 60 K/uL Mean Platelet Volume 11.2 fL Neutrophils (%) (Auto) 82.2 % Lymphocytes (%) (Auto) 9.4 % Monocytes (%) (Auto) 7.9 % Eosinophils (%) (Auto) 0.0 % Basophils (%) (Auto) 0.1 % Neutrophils # (Auto) 6.75 K/uL Lymphocytes # (Auto) 0.77 K/uL Monocytes # (Auto) 0.65 K/uL Eosinophils # (Auto) 0.00 K/uL Basophils # (Auto) 0.01 K/uL RDW Standard Deviation 61.6 fL RDW Coefficient of Variation 17.5 % Immature Granulocyte % (Auto) 0.4 % Immature Granulocyte # (Auto) 0.03 K/uL Ovalocytes 1+ Prothrombin Time 15.3 SECONDS Prothromb Time International Ratio 1.4 Sodium Level 142 mmol/L Potassium Level 4.2 mmol/L Chloride Level 105 mmol/L Carbon Dioxide Level 32 mmol/L Anion Gap 5.0 mmol/L Blood Urea Nitrogen 30 mg/dl Creatinine 1.70 mg/dl Est Creatinine Clear Calc Drug Dose 41.9 ml/min Estimated GFR () 44.4 Estimated GFR (Non- 38.3 BUN/Creatinine Ratio 17.8 Random Glucose 111 mg/dl Calcium Level 7.5 mg/dl Vitamin B12 Level 640 pg/mL Folate 23.73 ng/mL Thyroid Stimulating Hormone (TSH) 1.470 uIu/ml Free Thyroxine 1.30 ng/dl Random Cortisol 21.17 mcg/dl Assessment and Plan 76-year-old male presents to the emergency department with complaints of acute onset of bilateral lower extremity weakness which turns out to be more of a generalized weakness. 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 In the ER, he was found to be hypoxic with possible exacerbation of CHF and was initially treated with IV lasix. He then spiked a fever and became hypotensive after admission. He is admitted with severe sepsis, likely PNA as the source with productive cough, acute hypoxemic respiratory failure, abnormal CXR, and now with GPC bacteremia. Acute hypoxemic respiratory failure w/ hypoxia, secondary to PNA, sepsis, and acute on chronic systolic CHF-continues with significant hypotension today that responds to boluses With severe sepsis, likely PNA as the source with productive cough, hypoxia, abnormal CXR, and now with GPC bacteremia. ECHO without obvious vegetation, EF 35%. Has BOVINE AVR and pacer/ICD in place, aortic graft (indwelling foreign bodies) CXR looks like pulm edema, cardiomegaly, but very well could have superimposed PNA LLL Ur cx negative Random cortisol normal; PCT elevated at 28 suggestive of bacterial infection consistent with GPC bacteremia - continue telemetry -continue IVF boluses for hypotension -continue Rocephin, Doxy, Vanco to cover for CAP, MRSA (although nasal swab neg) , and double cover for resistant Strep pneumo - O2 protocol, wean as tolerated- does NOT wear O2 supplement at baseline - Lasix 40 mg IV 1 dose but with septic shock, need to hydrate -HOLD Bumex 2 mg BID - Suggs placed- monitor I&Os and daily weights - Xopenex/ipratropium nebs q 6 hr for SOB/wheezing -ID consult appreciated--> will likely need terminal gauger IV abx given pacer/ICD, AVR with GPC bacteremia -repeat BCxs today and await for negative BCxs before placing PICC line but may need to place CVC -f/u final ID and sensitivity on BCxs -f/u Anaplasmosis but now not likely given GPC in BCx - Consult cardiology, appreciate recommendations but will have to hold off on diuresis until sepsis resolved -will likely need WILLI to look at AV, possibly Friday -discussed with Bottomer Operator about placing CVC for vasopressor and he will evaluate the pt--> will transfer to ICU and possibly start dobutamine Thrombocytopenia- likely secondary to sepsis. Worse today at 60k, no evidence of bleeding - Follow CBC -treating sepsis Elevated troponin, Demand ischemia, likely secondary to hypoxia and possibly renal function- asymptomatic: - Telemetry monitoring as noted above - Trend cardiac enzymes- peaked trop at 0.095 - Follow EKG QAM and PRN w/ CP -continues on ASA but may need to hold given thrombocytopenia Lower and some upper extremity weakness/generalized, likely secondary to myopathy from sepsis-NOT Transverse myelitis: - Neurology consulted, appreciate recommendations to check Laboratory studies to include TSH, B-12, folate, free T4, Lyme antibody titers, aldolase -- Hold statin -- EMG and nerve conduction studies as an outpatient -- PT/OT - Elevated CPK- continue to trend but is now going down Paroxysmal A-fib/flutter, Bovine AVR, s/p ICD placement- follows w/ Dr. Richardson--> numerous cardiac surgeries, AVR x 3, sternal nonunion repair, Aortic dissection with grafting in 2000. No A-fib since [facility] 2010 as per Cardiology notes - hold Toprol, hold Bumex -continue Amiodarone 200 mg QAM, ASA 81 mg daily but may need to hold ASA as above - Continue Warfarin at current dosing from home. INR today low at 1.4 but is on antibiotics so may go up - would be ok to hold coumadin if need be as has Bovine valve and no A-fib in many years SANTHOSH on CKD, stage III, baseline Cr. 1.2 and was 1.8 on admission-today 1.7 - Avoid nephrotoxic agents - Follow PRP -keep BP up Hypothyroidism: - Continue Synthroid 25 mcg daily - TSH/free T4 normal HTN- hypotensive due to sepsis now -holding all antihypertensives Dyslipidemia: Pravastatin 40 mg HS held due to elevated CK BPH: Flomax held due to hypotension -continue Suggs catheter GI Prophylaxis: Pepcid DVT Prophylaxis: Coumadin Code Status: LEVEL V, DNR Dispo: From home- social work administrator consulted - PT/OT evaluations pending
[2017-02-01 18:34] LABS: VEN BLOOD GAS BASE EXCESS 2.5 mEq/L; VENOUS BLOOD GAS PCO2 64 mmHg (38.0-50.0); VENOUS BLOOD GAS PO2 29 mmHg
[2017-02-01 18:35] LABS: VEN BLD GAS O2 SATURATION < 60.0 %
[2017-02-01] MEDS ORDERED: DOBUTamine 500MG / 250ML D5W ONE (19:34)
--- NOTE | 2017-02-01 19:41 | DIAGNOSTIC IMAGING REPORT ---
CHEST ONE VIEW PORTABLE CLINICAL HISTORY: s/p central line COMPARISON STUDY: 02/01/2017 FINDINGS: The heart remains enlarged. There are postsurgical changes of a midline sternotomy. There is a left subclavian pacer/defibrillator present. There is stable mild pulmonary vascular congestion. There is no lobar consolidation. There are stable left basilar atelectatic changes. There has been interval placement of a right internal jugular central venous catheter. Tip projects over the superior vena cava. There is no evidence of pneumothorax.[ IMPRESSION: No evidence of pneumothorax status post placement of a right internal jugular central venous catheter. The tip projects over the superior vena cava. Electronically signed by: Hernando Du M.D. 02/01/2017 7:39 PM Dictated Date/Time: 02/01/2017 7:38 PM
[2017-02-01] MEDS ORDERED: DOBUTamine / D5W 500 MG IV PRN (19:45)
--- NOTE | 2017-02-01 20:06 | DIAGNOSTIC IMAGING REPORT ---
(CHEST) THORAX WITHOUT CLINICAL HISTORY: bacteremia COMPARISON STUDY: 09/12/2009, chest x-ray dated 02/01/2017 CT DOSE: 1472.26 mGy.cm TECHNIQUE: CT of the thorax was performed from the thoracic inlet to the lung bases. Images are reviewed in the axial, sagittal, and coronal planes. IV contrast was not administered for this examination. A dose lowering technique was utilized adhering to the principles of ALARA. FINDINGS: Thyroid: There is a persistent left-sided thyroid nodule measuring approximately 18 mm. Thoracic aorta: There are moderate atheromatous changes present within the thoracic aorta. There is a presumed surgical repair of a descending thoracic dissection, similar in appearance the prior August 2009 study. There is dilatation of the upper abdominal aorta which measures 54 mm in diameter. Heart: The heart is enlarged. There are coronary artery calcifications present. There is a left subclavian pacemaker present. Lungs and pleural spaces: There are trace bilateral pleural effusions. There is elevation left hemidiaphragm. There is left lower lobe atelectasis/consolidation. There is mild pulmonary emphysema. There are areas of interstitial scarring/atelectasis within the lingula. Mediastinum: There is no mediastinal lymphadenopathy. Svetlana: There is no evidence of pathologic hilar adenopathy given the limitations of a noncontrast study Axilla: There is no evidence of pathologic axillary lymphadenopathy. Upper abdomen: There is a partially visualized left renal cyst. There is dilatation of the upper abdominal aorta. The spleen appears enlarged. Skeletal structures: There are no lytic or blastic osseous lesions. IMPRESSION: 1. Cardiomegaly and coronary artery calcifications 2. Presumed surgical repair of a descending thoracic aortic dissection 3. Trace bilateral pleural effusions 4. Elevation of left hemidiaphragm with left lower lobe atelectasis/consolidation 5. 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 Splenomegaly Electronically signed by: Hernando Du M.D. 02/01/2017 8:05 PM Dictated Date/Time: 02/01/2017 7:59 PM
--- NOTE | 2017-02-01 20:17 | DIAGNOSTIC IMAGING REPORT ---
CT SCAN OF THE ABDOMEN AND PELVIS WITHOUT CONTRAST CLINICAL HISTORY: bacteremia COMPARISON STUDY: 01/23/2015 TECHNIQUE: CT scan of the abdomen and pelvis was performed from the lung bases to the proximal femurs. Images are reviewed in the axial, sagittal, and coronal planes. IV contrast was not administered for this examination. A dose lowering technique was utilized adhering to the principles of ALARA. CT DOSE: FINDINGS: Lower chest: The heart is enlarged. There are trace bilateral pleural effusions. There is elevation left hemidiaphragm. There is left basilar atelectasis/consolidation. Liver: The unenhanced liver is normal in size, contour, and attenuation. There is no intrahepatic biliary ductal dilatation. Gallbladder: Cholelithiasis Spleen: The spleen is enlarged measuring 14.2 cm Pancreas: Unremarkable. Adrenal glands: Unremarkable. Kidneys: There are multiple bilateral renal cysts the largest of which measures 84 mm on the right and 50 mm on the left. There is an indeterminate 32 mm left renal mass which exceeds water attenuation. This could represent a solid renal neoplasm. A dedicated renal CT scan or MRI is recommended in follow-up. Bowel: There are no transition zones indicate bowel obstruction. There is a left inguinal hernia which contains a portion of sigmoid colon. There is no current evidence of bowel obstruction. There is no acute diverticulitis. There is no acute appendicitis. There is mild nonspecific stranding within the right retroperitoneal fat at the common iliac level. Peritoneum: There is no intraperitoneal free air or abdominal ascites. Vasculature: There is a fusiform aneurysm of the aorta which measures 61 mm in maximal diameter. This involves both the suprarenal and infrarenal aorta. There is a suspected distal aortic dissection which extends into the right iliac. The right iliac is dilated measuring 27 mm. Adenopathy: None. Pelvic viscera: There is indwelling Sandoval catheter. Skeletal structures: There is an old L1 compression deformity IMPRESSION: 1. Cholelithiasis 2. Splenomegaly 3. In addition to multiple renal cysts, there is an indeterminate 32 mm left renal mass possibly representing a solid renal neoplasm. A dedicated renal CT scan or MRI is recommended in follow-up 4. Fusiform aneurysm of the abdominal aorta involving both the suprarenal and infrarenal abdominal aorta. The maximal aortic diameter is 61 mm. There is a suspected infrarenal abdominal aortic dissection which extends into the right iliac. 5. No evidence of bowel obstruction. No evidence of free air 6. Left femoral hernia containing a portion of sigmoid colon. No current evidence of obstruction 7. Nonspecific stranding of the retroperitoneal fat at the right common iliac level Electronically signed by: Hernando Du M.D. 02/01/2017 8:16 PM Dictated Date/Time: 02/01/2017 8:05 PM
[2017-02-01] MEDS ORDERED: HEPARIN IV LOW DOSE NO BOLUS SCH (20:26)
[2017-02-01 21:15] LABS: HEMATOCRIT 35.9 % (42-52); MEAN CELL VOLUME 94.5 fL (80-100); MEAN CORPUSCULAR HEMOGLOBIN 28.7 pg (25-34); WHITE BLOOD COUNT 6.07 K/uL (4.8-10.8)
[2017-02-01 21:26] LABS: INR 1.5 (0.9-1.1); PARTIAL THROMBOPLASTIN RATIO 1.4; PROTHROMBIN TIME (PATIENT) 16.1 SECONDS (9.0-12.0)
[2017-02-01 21:48] LABS: BASO ABS # 0.05 K/uL (0-0.2); BASOPHIL % 0.9 % (0-2); COMPLETE YES; DOHLE BODIES 1+; EOSINOPHIL % 4.3 %; GIANT PLATELETS 1+; LYMPH ABS # 0.63 K/uL (1.2-3.4); LYMPHOCYTE % 10.3 %; MEAN CORPUSCULAR HGB CONC 30.4 g/dl (32-36); MEAN PLATELET VOLUME 11.6 fL (7.4-10.4); NEUTROPHILS % 79.3 %; OVALOCYTES 1+; PLATELET COUNT 60 K/uL (130-400)
--- NOTE | 2017-02-01 22:23 | Progress Note ---
Subjective Date of Service: Feb 01, 2017. Objective Vital Signs Date Time Temp Pulse Resp B/P (MAP) Pulse Ox O2 Delivery O2 Flow Rate FiO2 02/01/17 17:45 36.6 66 18 85/54 (64) 97 Nasal Cannula 4.0 02/01/17 17:00 36.6 68 18 87/58 (68) 96 Nasal Cannula 4.0 02/01/17 16:00 96 Nasal Cannula 4.0 02/01/17 16:00 36.8 66 18 78/55 (63) 96 Nasal Cannula 4.0 02/01/17 14:45 36.8 66 22 77/51 (60) 97 Nasal Cannula 4.0 02/01/17 11:40 95 Nasal Cannula 4.0 02/01/17 11:39 36.9 67 20 85/38 (54) 95 Nasal Cannula 4.0 02/01/17 07:58 73 18 92/55 (67) 95 6.0 02/01/17 07:30 91 Nasal Cannula 6.0 02/01/17 06:00 36.8 69 108/65 (79) 91 02/01/17 04:00 91 Nasal Cannula 4.0 02/01/17 03:55 36.6 68 22 91/43 (59) 91 Nasal Cannula 4.0 02/01/17 03:00 87/47 (60) 02/01/17 00:00 37.9 96/52 (67) 02/01/17 00:00 92 Nasal Cannula 4.0 01/31/17 23:05 39.5 82 20 80/62 (68) 92 Nasal Cannula 4.0 Laboratory Results Last 24 Hours Test 02/01/17 05:11 02/01/17 18:13 02/01/17 20:23 White Blood Count 8.21 K/uL 6.07 K/uL Red Blood Count 4.00 M/uL 3.80 M/uL Hemoglobin 11.5 g/dL 10.9 g/dL Hematocrit 37.9 % 35.9 % Mean Corpuscular Volume 94.8 fL 94.5 fL Mean Corpuscular Hemoglobin 28.8 pg 28.7 pg Mean Corpuscular Hemoglobin Concent 30.3 g/dl 30.4 g/dl Platelet Count 60 K/uL 60 K/uL Mean Platelet Volume 11.2 fL 11.6 fL Neutrophils (%) (Auto) 82.2 % Lymphocytes (%) (Auto) 9.4 % Monocytes (%) (Auto) 7.9 % Eosinophils (%) (Auto) 0.0 % Basophils (%) (Auto) 0.1 % Neutrophils # (Auto) 6.75 K/uL Lymphocytes # (Auto) 0.77 K/uL Monocytes # (Auto) 0.65 K/uL Eosinophils # (Auto) 0.00 K/uL Basophils # (Auto) 0.01 K/uL RDW Standard Deviation 61.6 fL 61.1 fL RDW Coefficient of Variation 17.5 % 17.7 % Immature Granulocyte % (Auto) 0.4 % Immature Granulocyte # (Auto) 0.03 K/uL Ovalocytes 1+ 1+ Prothrombin Time 15.3 SECONDS 16.1 SECONDS Prothromb Time International Ratio 1.4 1.5 Sodium Level 142 mmol/L Potassium Level 4.2 mmol/L Chloride Level 105 mmol/L Carbon Dioxide Level 32 mmol/L Anion Gap 5.0 mmol/L Blood Urea Nitrogen 30 mg/dl Creatinine 1.70 mg/dl Est Creatinine Clear Calc Drug Dose 41.9 ml/min Estimated GFR () 44.4 Estimated GFR (Non- 38.3 BUN/Creatinine Ratio 17.8 Random Glucose 111 mg/dl Calcium Level 7.5 mg/dl Vitamin B12 Level 640 pg/mL Folate 23.73 ng/mL Procalcitonin 28.20 ng/ml Thyroid Stimulating Hormone (TSH) 1.470 uIu/ml Free Thyroxine 1.30 ng/dl Random Cortisol 21.17 mcg/dl Venous Blood pH 7.29 Venous Blood Partial Pressure CO2 64 mmHg Venous Blood Partial Pressure O2 29 mmHg Venous Blood HCO3 30 mmol/L Venous Blood Oxygen Saturation < 60.0 % Venous Blood Base Excess 2.5 mEq/L Lactic Acid Level 0.9 mmol/L Neutrophils % (Manual) 79.3 % Lymphocytes % (Manual) 10.3 % Monocytes % (Manual) 5.2 % Eosinophils % (Manual) 4.3 % Basophils % (Manual) 0.9 % Neutrophils # (Manual) 4.81 K/uL Total Absolute Neutrophils 4.81 K/uL Lymphocytes # (Manual) 0.63 K/uL Total Absolute Lymphocytes 0.63 K/uL Monocytes # (Manual) 0.32 K/uL Eosinophils # (Manual) 0.26 K/uL Basophils # (Manual) 0.05 K/uL Dohle Bodies 1+ Giant Platelets 1+ Activated Partial Thromboplast Time 35.2 SECONDS Partial Thromboplastin Ratio 1.4
[2017-02-01] MEDS: HEPARIN 25,000 UNIT/500ML D5W 500 ML IV PRN (22:36)
--- NOTE | 2017-02-01 23:04 | Procedure Note ---
Procedure Note Procedure Date Feb 01, 2017. Procedure Description Procedure Name: Left Radial Arterial Catheter Insertion Procedure time out: side/site verified, patient ID confirmed, correct procedure Consent obtained: written (Obtained by Dr. Meek) Time of procedure: 21:30 Performed by: physician car hopper Indications: diagnostic, therapeutic Contraindications: none Description: Using sterile technique; the left radial artery was cleaned with a chloro- hexadine scrub after adequate palpation and visualization with the ultrasound, a finder needle with overlaying catheter was then used with approach at a 45* angle until a flash was obtained with direct visualization on ultrasound. Using Seldinger technique, there was initially some difficulty passing the guide wire, on the third attempt the guide wire was then passed successfully into the artery and the catheter was threaded over the guide wire; which was then removed intact. Arterial blood was seen pulsating from catheter tip and a luer lock valve was attached to the catheter. The A-line catheter was then secured with a stat-lock and covered with a sterile surgical dressing. Pt was reassessed and no evidence of hematoma was appreciated. The tubing was placed between the first and second fingers and taped to the forearm, before a wrist support was placed. Pt tolerated the procedure well with no complications. Consent was obtained by Dr. Meek and Dr. Tyler Persaud Complications: none Patient tolerated procedure: well Post-procedure vital signs: reviewed and stable
[2017-02-02] VITALS (23 sets, daily range): BP systolic 99–147; BP diastolic 47–70; PULSE 71–85; TEMP 36.9–37.3; O2SAT 91–99
--- NOTE | 2017-02-02 01:29 | Critical Care Consultation ---
Critical Care Consultation Date of Consultation: Feb 01, 2017. Attending Physician: Sandy Kidd MD Reason for Consultation: Septic Shock History of Present Illness 76 yo M w/ hx of Tranverse Myelitis, who presented with acute LE weakness Left worse then right a day prior to arrival ,which resulted in patient falling when trying to get out of chair at home prior to arrival. He attributed these symptoms as likely due to Tranverse myelitis as his symptoms are very similar. On arrival, patient's arrived febrile with a leukocytosis and developed hypotension. Neurology, Infectious disease were consulted. Blood cultures gram Gram positive cocci. CK was also elevated. Patient is currently on Vancomycin, Doxycycline, Ceftriaxone. Critical care consult was made due to development to septic shock.He is currently on Dobutamine. Past Medical/Surgical History Aortic dissection status post repair AVR in 2000 Status was ICD placement A flutter/A. fib CHF with an EF of 45% as of 2012 Chronic kidney disease stage III Family History Patient reports no known family medical history. Social History Smoking Status: Former Smoker Smokeless Tobacco Use: No Alcohol Use: none Drug Use: none Marital Status: Housing Status: lives with family Occupation Status: retired Allergies Coded Allergies: Adhesives (Verified Adverse Reaction, Mild, 0, 01/30/17) Home Medications Scheduled Acetaminophen (Tylenol), 650 MG PO Q4HR PRN Amiodarone HCl (Amiodarone HCl), 200 MG PO QAM Aspirin (Aspirin), 81 MG PO DAILY Bumetanide (Bumex), 2 MG PO BID Docusate Sodium (Docusate Sodium), 100 MG PO BID Famotidine (Famotidine), 20 MG PO DAILY Fish Oil ([place]-3), 1 CAP PO DAILY Lecithin (Lecithin), 1,200 MG DAILY Levothyroxine Sodium (Levothyroxine Sodium), 25 MCG PO QAM Metoprolol Succinate (Toprol Xl), 100 MG PO DAILY Multivitamin (Multivitamin), 1 TAB PO DAILY Nitroglycerin (Nitrostat), 0.4 MG UT PRN Potassium Chloride (Potassium Chloride Er), 10 MEQ BID Pravastatin Sodium (Pravastatin Sodium), 40 MG HS Ramipril (Ramipril), 5 MG PO DAILY Tamsulosin HCl (Tamsulosin HCl), 0.4 MG PO HS Warfarin Sod (Coumadin), 1.25 MG PO MWF Warfarin Sod (Coumadin), 2.5 MG PO DIRECTED Current Inpatient Medications Current Inpatient Medications Medications (Trade) Dose Ordered Sig/Deion Route Start Time Stop Time Status Last Admin Dose Admin Acetaminophen (Tylenol Tab) 650 mg Q4H PRN PO 01/30/17 19:15 03/01/17 19:14 01/31/17 23:17 650 MG Al Hydrox/Mg Hydrox/Simethicone (Maalox Max Susp) 15 ml Q4H PRN PO 01/30/17 19:15 03/01/17 19:14 Magnesium Hydroxide (Milk Of Magnesia Susp) 30 ml Q12H PRN PO 01/30/17 19:15 03/01/17 19:14 Ondansetron HCl (Zofran Inj) 4 mg Q6H PRN IV 01/30/17 19:15 03/01/17 19:14 Amiodarone HCl (Cordarone Tab) 200 mg QAM PO 01/31/17 09:00 03/02/17 08:59 02/01/17 07:59 200 MG Aspirin (Ecotrin Tab) 81 mg DAILY PO 01/31/17 09:00 03/02/17 08:59 02/01/17 07:59 81 MG Bumetanide (Bumex Tab) 2 mg BID17 PO 01/31/17 09:00 03/02/17 08:59 Future Hold 01/31/17 17:58 2 MG Famotidine (Pepcid Tab) 20 mg DAILY PO 01/31/17 09:00 03/02/17 08:59 02/01/17 08:00 20 MG Levothyroxine Sodium (Synthroid Tab) 25 mcg DAILYBB PO 01/31/17 06:00 03/02/17 06:59 02/01/17 06:20 25 MCG Metoprolol Succinate (Toprol Xl Tab) 100 mg DAILY PO 01/31/17 09:00 03/02/17 08:59 Future Hold 01/31/17 10:19 100 MG Pravastatin Sodium (Pravachol Tab) 40 mg HS PO 01/30/17 21:00 03/01/17 20:59 Future Hold 01/30/17 21:52 40 MG Tamsulosin HCl (Flomax Cap) 0.4 mg HS PO 01/30/17 21:00 03/01/17 20:59 Future Hold 01/30/17 21:52 0.4 MG Ipratropium [place] (Atrovent 0.02% 0.5MG/2.5ML Neb) 0.5 mg Q6R PRN INH 01/30/17 20:00 03/01/17 19:59 01/31/17 19:32 0.5 MG Levalbuterol (Xopenex 1.25MG/ 0.5ML Neb) 1.25 mg Q6R PRN INH 01/30/17 20:00 03/01/17 19:59 01/31/17 19:32 1.25 MG Ceftriaxone Sodium 1 gm/ Dextrose 50 ml @ 100 mls/hr Q24H IV 01/31/17 14:00 02/07/17 13:59 02/01/17 14:37 100 MLS/HR Doxycycline Hyclate 100 mg/ Dextrose 110 ml @ 50 mls/hr BID IV 01/31/17 21:00 02/02/17 20:59 02/01/17 20:52 50 MLS/HR Vancomycin HCl (Consult) 1 ea UD PRN N/A 01/31/17 15:00 03/02/17 14:59 Vancomycin HCl 1400 mg/Sodium Chloride 528 ml @ 200 mls/hr Q18H IV 02/01/17 10:00 02/15/17 09:59 02/01/17 11:26 200 MLS/HR Miconazole Nitrate (Desenex Powder) 1 appln UD PRN EXT 01/31/17 19:00 03/02/17 18:59 02/01/17 00:22 1 APPLN Pantoprazole Sodium (Protonix Tab) 40 mg QAM PO 02/02/17 09:00 03/04/17 08:59 Dobutamine HCl 250 ml @ 0 mls/hr Q0M PRN IV 02/01/17 19:45 03/03/17 19:44 02/01/17 20:51 5.7 MLS/HR Heparin Sodium/ Dextrose 500 ml @ 19 mls/hr Q24H PRN IV 02/01/17 21:15 03/03/17 21:14 02/01/17 22:36 19 MLS/HR Heparin Sodium (Porcine) (Heparin 10 Unit/ ml 5 ml Flush) 5 ml PRN PRN FLUSH 02/02/17 01:30 03/04/17 01:29 Review of Systems Constitutional: + weakness, + fatigue Respiratory: No wheezing, No shortness of breath Cardiovascular: No chest pain, No claudication, No palpitations Abdomen: No nausea, No vomiting, No diarrhea Musculoskeletal: No swelling, No calf pain Genitourinary - Male: No dysuria, No urinary frequency, No urinary urgency Neurologic: + weakness, + numbness/tingling Integumentary: No rash, No itch Physical Exam Date Time Temp Pulse Resp B/P (MAP) Pulse Ox O2 Delivery O2 Flow Rate FiO2 02/02/17 01:00 85 15 123/57 (77) 96 106/67 02/02/17 00:59 83 19 (83) 96 105/66 02/02/17 00:01 77 17 103/64 (77) 95 02/02/17 00:01 77 17 134/57 (81) 95 103/64 02/02/17 00:00 77 21 111/68 (82) 97 02/02/17 00:00 77 21 (86) 97 111/68 02/01/17 23:59 Oxymask 4.0 02/01/17 23:01 74 21 133/62 (86) 99 114/68 02/01/17 22:59 75 19 (89) 98 114/71 02/01/17 22:31 74 23 128/58 (81) 97 102/70 02/01/17 21:59 77 15 94 02/01/17 21:59 77 15 94 02/01/17 21:58 79 13 94 02/01/17 21:46 82 22 105/53 (70) 89 02/01/17 21:46 82 22 105/53 (61) 89 02/01/17 21:30 76 22 90/56 (67) 99 02/01/17 21:30 76 22 90/56 (61) 99 02/01/17 21:16 78 29 90/56 (67) 96 02/01/17 21:16 78 29 90/56 (66) 96 02/01/17 21:01 76 24 89/56 (67) 100 02/01/17 21:01 76 24 89/56 (62) 100 02/01/17 20:59 75 18 97 02/01/17 20:58 75 26 97 02/01/17 20:45 74 17 91/57 (60) 97 02/01/17 20:45 74 17 91/57 (68) 97 02/01/17 20:30 77 25 89/56 (67) 98 02/01/17 20:30 77 25 89/56 (69) 98 02/01/17 20:15 77 25 85/58 (64) 97 02/01/17 20:15 77 25 85/58 (67) 97 02/01/17 20:08 79 25 80/58 (65) 97 02/01/17 20:08 79 25 80/58 (70) 97 02/01/17 20:00 Oxymask 4.0 02/01/17 17:45 36.6 66 18 85/54 (64) 97 Nasal Cannula 4.0 02/01/17 17:00 36.6 68 18 87/58 (68) 96 Nasal Cannula 4.0 02/01/17 16:00 96 Nasal Cannula 4.0 02/01/17 16:00 36.8 66 18 78/55 (63) 96 Nasal Cannula 4.0 02/01/17 14:45 36.8 66 22 77/51 (60) 97 Nasal Cannula 4.0 02/01/17 11:40 95 Nasal Cannula 4.0 02/01/17 11:39 36.9 67 20 85/38 (54) 95 Nasal Cannula 4.0 02/01/17 07:58 73 18 92/55 (67) 95 6.0 02/01/17 07:30 91 Nasal Cannula 6.0 02/01/17 06:00 36.8 69 108/65 (79) 91 02/01/17 04:00 91 Nasal Cannula 4.0 02/01/17 03:55 36.6 68 22 91/43 (59) 91 Nasal Cannula 4.0 02/01/17 03:00 87/47 (60) GENERAL: alert, well appearing, well nourished, no distress, non-toxic OROPHARYNX: no exudate, no erythema, lips, buccal mucosa, and tongue normal and mucous membranes are moist NECK: supple, no nuchal rigidity, no adenopathy, non-tender LUNGS: Clear to auscultation. Normal chest wall mechanics HEART: no murmurs, S1 normal and S2 normal ABDOMEN: abdomen soft, non-tender, normo-active bowel sounds, no masses, no rebound or guarding. SKIN: no rashes and no bruising UPPER EXTREMITIES: upper extremities are grossly normal. 4/5 strength brent LOWER EXTREMITIES: 4/5 strength brent LE NEURO EXAM: Normal sensorium, cranial nerves II-XII grossly intact, normal speech, no gross weakness of arms, no gross weakness of legs. Laboratory Results Last 24 Hours Test 02/01/17 05:11 02/01/17 18:13 02/01/17 20:23 02/02/17 00:14 White Blood Count 8.21 K/uL 6.07 K/uL Red Blood Count 4.00 M/uL 3.80 M/uL Hemoglobin 11.5 g/dL 10.9 g/dL Hematocrit 37.9 % 35.9 % Mean Corpuscular Volume 94.8 fL 94.5 fL Mean Corpuscular Hemoglobin 28.8 pg 28.7 pg Mean Corpuscular Hemoglobin Concent 30.3 g/dl 30.4 g/dl Platelet Count 60 K/uL 60 K/uL Mean Platelet Volume 11.2 fL 11.6 fL Neutrophils (%) (Auto) 82.2 % Lymphocytes (%) (Auto) 9.4 % Monocytes (%) (Auto) 7.9 % Eosinophils (%) (Auto) 0.0 % Basophils (%) (Auto) 0.1 % Neutrophils # (Auto) 6.75 K/uL Lymphocytes # (Auto) 0.77 K/uL Monocytes # (Auto) 0.65 K/uL Eosinophils # (Auto) 0.00 K/uL Basophils # (Auto) 0.01 K/uL RDW Standard Deviation 61.6 fL 61.1 fL RDW Coefficient of Variation 17.5 % 17.7 % Immature Granulocyte % (Auto) 0.4 % Immature Granulocyte # (Auto) 0.03 K/uL Ovalocytes 1+ 1+ Prothrombin Time 15.3 SECONDS 16.1 SECONDS Prothromb Time International Ratio 1.4 1.5 Sodium Level 142 mmol/L Potassium Level 4.2 mmol/L Chloride Level 105 mmol/L Carbon Dioxide Level 32 mmol/L Anion Gap 5.0 mmol/L Blood Urea Nitrogen 30 mg/dl Creatinine 1.70 mg/dl Est Creatinine Clear Calc Drug Dose 41.9 ml/min Estimated GFR () 44.4 Estimated GFR (Non- 38.3 BUN/Creatinine Ratio 17.8 Random Glucose 111 mg/dl Calcium Level 7.5 mg/dl Vitamin B12 Level 640 pg/mL Folate 23.73 ng/mL Procalcitonin 28.20 ng/ml Thyroid Stimulating Hormone (TSH) 1.470 uIu/ml Free Thyroxine 1.30 ng/dl Random Cortisol 21.17 mcg/dl Venous Blood pH 7.29 Venous Blood Partial Pressure CO2 64 mmHg Venous Blood Partial Pressure O2 29 mmHg Venous Blood HCO3 30 mmol/L Venous Blood Oxygen Saturation < 60.0 % Venous Blood Base Excess 2.5 mEq/L Lactic Acid Level 0.9 mmol/L 0.6 mmol/L Neutrophils % (Manual) 79.3 % Lymphocytes % (Manual) 10.3 % Monocytes % (Manual) 5.2 % Eosinophils % (Manual) 4.3 % Basophils % (Manual) 0.9 % Neutrophils # (Manual) 4.81 K/uL Total Absolute Neutrophils 4.81 K/uL Lymphocytes # (Manual) 0.63 K/uL Total Absolute Lymphocytes 0.63 K/uL Monocytes # (Manual) 0.32 K/uL Eosinophils # (Manual) 0.26 K/uL Basophils # (Manual) 0.05 K/uL Dohle Bodies 1+ Giant Platelets 1+ Activated Partial Thromboplast Time 35.2 SECONDS Partial Thromboplastin Ratio 1.4 Assessment & Plan 76 yo M w hx of Transverse myelitis, Afib/Aflutter, CHF, CKD III, 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 Respiratory: normal saturation at 4L NC resp prophylaxis: Ipratropium, Xopenex Cardiovascular: Hypotension, Septic Shock, Afib Not currently on IV fluid due to suspected risk of fluid overload CV drips: Dobutamine Afib: con't amiodarone Fluids/Renal: IV Fluids: Fluids from intravenous medications Net Urine: +621 mls over 24 hrs Sandoval: Present GI/Nutrition: Feeding: Low sodium AHA diet Prophylaxis: On PPI Endocrine: Last 24 hour glucose: Ranging 93 to 111 Insulin protocol: Yes; Drip: No Hematology: Hemoglobin 10.9 DVT prophylaxis: Heparin 5000 3 times a day Infectious Disease/Immunology: Tmax: 38 Antimicrobials: day 2 Vancomycin Doxycycline Ceftriaxone Cultures: Blood: No growth Lyme Neg. A. phagocytophilum Ab's Resident Physician Supervision Note: Dr. Meek was resident physician during care of patient. I separately evaluated patient and did history and exam. I discussed the case with the resident and generally agree with the findings and plan. Reason Critically Ill: Hypotension likely secondary to sepsis and Gram-positive bacteremia PLAN: Neuro: Transverse myelitis doubtful, pain controlled Resp: Supplemental oxygen as needed CV: Dobutamine via right internal jugular vein Fluids/Renal: Patient taking adequate by mouth at this time ID: Continue Rocephin and vancomycin doxycycline, following ID recommendations GI/Nutrition: No food while escalating pressors Heme: Anemia at baseline Endocrine: Blood sugars within acceptable limits CODE STATUS: DO NOT RESUSCITATE and DO NOT INTUBATE in event of cardiac arrest I have personally spent 35 minutes of critical care time in the direct management of this patient. This is a life/limb threatening event. This includes time spent evaluating patient, direct bedside care, chart review, placing orders, interpretation of diagnostic studies, discussion with consultants, patient, and family members, as well as other required patient management activities. This time is exclusive of all separately billable procedures, and teaching time and separate from and in addition to any other critical care service time. Documented By: Tyler Persaud DO
[2017-02-02] MEDS: VANCOMYCIN INJ 1,400 MG in SODIUM CHLORIDE 0.9% 500ML 500 ML IV SCH ×2 (04:16→21:35)
[2017-02-02 04:51] LABS: HEMATOCRIT 35.5 % (42-52); MEAN CELL VOLUME 92.9 fL (80-100); MEAN CORPUSCULAR HGB CONC 30.1 g/dl (32-36); RED BLOOD COUNT 3.82 M/uL (4.7-6.1); WHITE BLOOD COUNT 4.44 K/uL (4.8-10.8)
[2017-02-02 05:03] LABS: MEAN PLATELET VOLUME 10.7 fL (7.4-10.4); PLATELET COUNT 62 K/uL (130-400)
[2017-02-02 05:06] LABS: INR 1.4 (0.9-1.1); PARTIAL THROMBOPLASTIN RATIO 1.8; PROTHROMBIN TIME (PATIENT) 15.6 SECONDS (9.0-12.0)
[2017-02-02 05:07] LABS: BUN/CREATININE RATIO 21.8 (10-20); CALCIUM 7.9 mg/dl (8.5-10.1); CREATININE 1.2 mg/dl (0.60-1.40); MAGNESIUM 2.1 mg/dl (1.8-2.4)
[2017-02-02 05:08] LABS: PHOSPHORUS 2.6 mg/dl (2.5-4.9)
[2017-02-02 05:13] LABS: BASO % 0.2 %; BASO ABS # 0.01 K/uL (0-0.2); COMPLETE YES; EOS % 3.4 %; IG% 0.2 %; LYMPH % 14.4 %; LYMPH ABS # 0.64 K/uL (1.2-3.4); MONO % 13.1 %; NEUT % 68.7 %; OVALOCYTES 1+
[2017-02-02] MEDS: HEPARIN 25,000 UNIT/500ML D5W 500 ML IV PRN ×2 (05:25→21:37)
[2017-02-02] MEDS ORDERED: HEPARIN IV BOLUS 3,000 UNIT in SYRINGE 0 ML IV ONE (05:30)
[2017-02-02] MEDS: LEVOTHYROXINE 25 MCG TAB PO SCH (05:34)
--- NOTE | 2017-02-02 06:55 | Critical Care Progress Note ---
Critical Care Progress Note Date of Service Feb 02, 2017. ICU Day ICU Day Number: [address] Persaud Subjective Overnight Patient has no complaints, He denies pain, SOB, palpitation,.He reports residual weakness in the LE thought significantly improved from arrival . He denies pain, numbness or tingling, RAMOS or visual changes, Objective GENERAL: alert, well appearing, well nourished, no distress, non-toxic OROPHARYNX: no exudate, no erythema, lips, buccal mucosa, and tongue normal and mucous membranes are moist NECK: supple, no nuchal rigidity, no adenopathy, non-tender LUNGS: Clear to auscultation. Normal chest wall mechanics HEART: no murmurs, S1 normal and S2 normal ABDOMEN: abdomen soft, non-tender, normo-active bowel sounds, no masses, no rebound or guarding. SKIN: no rashes and no bruising UPPER EXTREMITIES: upper extremities are grossly normal. 4/5 strength brent LOWER EXTREMITIES: 4/5 strength brent LE, 5/5 Stregth Brent UE, reflexes intact NEURO EXAM: A Ox3, cranial nerves II-XII grossly intact, normal speech, no gross weakness of arms, no gross weakness of legs. 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 Neurology consulted While Transverse myelitis cannot be definitely ruled out, myopathy may be more likely given the elevated CK althought this could also be attributed to end- organ damage in setting of sepsis Respiratory: normal saturation at 4L NC Resp prophylaxis: Ipratropium, Xopenex Cardiovascular: Hypotension, Septic Shock, Afib Not currently on IV fluid due to suspected risk of fluid overload CV drips: Dobutamine Afib: con't amiodarone Fluids/Renal: IV Fluids: Fluids from intravenous medications Net Urine: 1648 in, 1910 out , net -262 Urine output > .5 ml/kg/hr Sandoval: Present GI/Nutrition: Feeding: Low sodium AHA diet Prophylaxis: On PPI Endocrine: Last 24 hour glucose: Ranging 109-111 Continue to monitor Hematology: Hemoglobin 10.7 DVT prophylaxis: Heparin 5000 3 times a day Infectious Disease/Immunology: Tmax: 36.9 Antimicrobials: day 3 Vancomycin Doxycycline Ceftriaxone Cultures: Blood: Gram positive cocci , Júnior STrep Lyme Neg. A. phagocytophilum Ab's pending Resident Physician Supervision Note: Dr. Meek was resident physician during care of patient. I separately evaluated patient and did history and exam. I discussed the case with the resident and generally agree with the findings and plan. An extensive discussion with the patient has at bedside this morning. He is aware of his abdominal AAA, he is undergoing medical management and does not desire any surgical intervention. We discussed possible diagnoses of his renal mass ranging from simple cysts to malignancy. He prefers to not undergo further evaluation (contrasted CT scan, MRI, biopsy) as he would not want to undergo surgery, chemotherapy, radiation. We discussed possibilities for infected graft material or deep space infection causing the bacteremia. He reiterated he would not want to undergo any major surgeries including revision of any aortic valves. His focus is on his quality of life. Accordingly at this time he is willing to undergo another 24 hours of vasoactive medications should they be required until we have formal sensitivities of the bacteria to ensure we are utilizing an appropriate antibiotic. We discussed possibilities for long-term IV access she will likely need, he is acceptable to this. Ideally he does not want to have a prolonged stay in any rehabilitation, however he is willing to consider approximately 1 week of time in rehabilitation if it will improve his function or facilitate antibiotics ultimately leading to his ability to care for himself at his residence. I discussed this case with Dr. Smith and Dr. Kidd. Documented By: Tyler Persaud DO Consults & Procedures Consultants: Neurology Infectious Disease Procedures: arterial line Data Medications: Current Inpatient Medications Medications (Trade) Dose Ordered Sig/Deion Route Start Time Stop Time Status Last Admin Dose Admin Acetaminophen (Tylenol Tab) 650 mg Q4H PRN PO 01/30/17 19:15 03/01/17 19:14 01/31/17 23:17 650 MG Al Hydrox/Mg Hydrox/Simethicone (Maalox Max Susp) 15 ml Q4H PRN PO 01/30/17 19:15 03/01/17 19:14 Magnesium Hydroxide (Milk Of Magnesia Susp) 30 ml Q12H PRN PO 01/30/17 19:15 03/01/17 19:14 Ondansetron HCl (Zofran Inj) 4 mg Q6H PRN IV 01/30/17 19:15 03/01/17 19:14 Amiodarone HCl (Cordarone Tab) 200 mg QAM PO 01/31/17 09:00 03/02/17 08:59 02/01/17 07:59 200 MG Aspirin (Ecotrin Tab) 81 mg DAILY PO 01/31/17 09:00 03/02/17 08:59 02/01/17 07:59 81 MG Bumetanide (Bumex Tab) 2 mg BID17 PO 01/31/17 09:00 03/02/17 08:59 Future Hold 01/31/17 17:58 2 MG Famotidine (Pepcid Tab) 20 mg DAILY PO 01/31/17 09:00 03/02/17 08:59 02/01/17 08:00 20 MG Levothyroxine Sodium (Synthroid Tab) 25 mcg DAILYBB PO 01/31/17 06:00 03/02/17 06:59 02/02/17 05:34 25 MCG Metoprolol Succinate (Toprol Xl Tab) 100 mg DAILY PO 01/31/17 09:00 03/02/17 08:59 Future Hold 01/31/17 10:19 100 MG Pravastatin Sodium (Pravachol Tab) 40 mg HS PO 01/30/17 21:00 03/01/17 20:59 Future Hold 01/30/17 21:52 40 MG Tamsulosin HCl (Flomax Cap) 0.4 mg HS PO 01/30/17 21:00 03/01/17 20:59 Future Hold 01/30/17 21:52 0.4 MG Ipratropium [place] (Atrovent 0.02% 0.5MG/2.5ML Neb) 0.5 mg Q6R PRN INH 01/30/17 20:00 03/01/17 19:59 01/31/17 19:32 0.5 MG Levalbuterol (Xopenex 1.25MG/ 0.5ML Neb) 1.25 mg Q6R PRN INH 01/30/17 20:00 03/01/17 19:59 01/31/17 19:32 1.25 MG Ceftriaxone Sodium 1 gm/ Dextrose 50 ml @ 100 mls/hr Q24H IV 01/31/17 14:00 02/07/17 13:59 02/01/17 14:37 100 MLS/HR Doxycycline Hyclate 100 mg/ Dextrose 110 ml @ 50 mls/hr BID IV 01/31/17 21:00 02/02/17 20:59 02/01/17 20:52 50 MLS/HR Vancomycin HCl (Consult) 1 ea UD PRN N/A 01/31/17 15:00 03/02/17 14:59 Vancomycin HCl 1400 mg/Sodium Chloride 528 ml @ 200 mls/hr Q18H IV 02/01/17 10:00 02/15/17 09:59 02/02/17 04:16 200 MLS/HR Miconazole Nitrate (Desenex Powder) 1 appln UD PRN EXT 01/31/17 19:00 03/02/17 18:59 02/01/17 00:22 1 APPLN Pantoprazole Sodium (Protonix Tab) 40 mg QAM PO 02/02/17 09:00 03/04/17 08:59 Dobutamine HCl 250 ml @ 0 mls/hr Q0M PRN IV 02/01/17 19:45 03/03/17 19:44 02/01/17 20:51 5.7 MLS/HR Heparin Sodium/ Dextrose 500 ml @ 21 mls/hr [id number] PRN IV 02/01/17 21:15 03/03/17 21:14 02/02/17 05:25 21 MLS/HR Heparin Sodium (Porcine) (Heparin 10 Unit/ ml 5 ml Flush) 5 ml PRN PRN FLUSH 02/02/17 01:30 03/04/17 01:29 Vital Signs: Date Time Temp Pulse Resp B/P (MAP) Pulse Ox O2 Delivery O2 Flow Rate FiO2 02/02/17 06:00 72 14 130/63 (98) 97 109/69 02/02/17 06:00 72 14 130/63 (85) 97 02/02/17 05:59 73 11 (83) 97 108/66 02/02/17 05:59 73 11 108/66 (80) 97 02/02/17 05:00 77 26 127/57 (89) 96 103/64 02/02/17 04:00 79 24 113/56 (76) 92 104/66 02/02/17 04:00 Oxymask 4.0 02/02/17 04:00 79 24 113/56 (75) 92 02/02/17 03:59 79 26 (78) 94 99/63 02/02/17 03:01 81 21 121/63 (85) 97 109/67 02/02/17 02:59 78 24 (84) 96 109/67 02/02/17 02:00 84 22 124/63 (93) 96 101/65 02/02/17 02:00 84 22 124/63 (83) 96 02/02/17 01:59 84 24 (83) 96 105/67 02/02/17 01:59 84 24 105/67 (80) 96 02/02/17 01:00 85 15 123/57 (77) 96 106/67 02/02/17 00:59 83 19 (83) 96 105/66 02/02/17 00:01 77 17 103/64 (77) 95 02/02/17 00:01 77 17 134/57 (81) 95 103/64 02/02/17 00:00 77 21 111/68 (82) 97 02/02/17 00:00 36.9 77 21 (86) 97 111/68 02/01/17 23:59 Oxymask 4.0 02/01/17 23:01 74 21 133/62 (86) 99 114/68 02/01/17 22:59 75 19 (89) 98 114/71 02/01/17 22:31 74 23 128/58 (81) 97 102/70 02/01/17 21:59 77 15 94 02/01/17 21:59 77 15 94 02/01/17 21:58 79 13 94 02/01/17 21:46 82 22 105/53 (70) 89 02/01/17 21:46 82 22 105/53 (61) 89 02/01/17 21:30 76 22 90/56 (67) 99 02/01/17 21:30 76 22 90/56 (61) 99 02/01/17 21:16 78 29 90/56 (67) 96 02/01/17 21:16 78 29 90/56 (66) 96 02/01/17 21:01 76 24 89/56 (67) 100 02/01/17 21:01 76 24 89/56 (62) 100 02/01/17 20:59 75 18 97 02/01/17 20:58 75 26 97 02/01/17 20:45 74 17 91/57 (60) 97 02/01/17 20:45 74 17 91/57 (68) 97 02/01/17 20:30 77 25 89/56 (67) 98 02/01/17 20:30 77 25 89/56 (69) 98 02/01/17 20:15 77 25 85/58 (64) 97 02/01/17 20:15 77 25 85/58 (67) 97 02/01/17 20:08 79 25 80/58 (65) 97 02/01/17 20:08 79 25 80/58 (70) 97 02/01/17 20:00 Oxymask 4.0 02/01/17 17:45 36.6 66 18 85/54 (64) 97 Nasal Cannula 4.0 02/01/17 17:00 36.6 68 18 87/58 (68) 96 Nasal Cannula 4.0 02/01/17 16:00 96 Nasal Cannula 4.0 02/01/17 16:00 36.8 66 18 78/55 (63) 96 Nasal Cannula 4.0 02/01/17 14:45 36.8 66 22 77/51 (60) 97 Nasal Cannula 4.0 02/01/17 11:40 95 Nasal Cannula 4.0 02/01/17 11:39 36.9 67 20 85/38 (54) 95 Nasal Cannula 4.0 02/01/17 07:58 73 18 92/55 (67) 95 6.0 02/01/17 07:30 91 Nasal Cannula 6.0 Laboratory Results: Last 24 Hours Test 02/01/17 18:13 02/01/17 20:23 02/02/17 00:14 02/02/17 04:40 Venous Blood pH 7.29 Venous Blood Partial Pressure CO2 64 mmHg Venous Blood Partial Pressure O2 29 mmHg Venous Blood HCO3 30 mmol/L Venous Blood Oxygen Saturation < 60.0 % Venous Blood Base Excess 2.5 mEq/L Lactic Acid Level 0.9 mmol/L 0.6 mmol/L 0.5 mmol/L White Blood Count 6.07 K/uL 4.44 K/uL Red Blood Count 3.80 M/uL 3.82 M/uL Hemoglobin 10.9 g/dL 10.7 g/dL Hematocrit 35.9 % 35.5 % Mean Corpuscular Volume 94.5 fL 92.9 fL Mean Corpuscular Hemoglobin 28.7 pg 28.0 pg Mean Corpuscular Hemoglobin Concent 30.4 g/dl 30.1 g/dl Platelet Count 60 K/uL 62 K/uL Mean Platelet Volume 11.6 fL 10.7 fL RDW Standard Deviation 61.1 fL 60.6 fL RDW Coefficient of Variation 17.7 % 17.7 % Neutrophils % (Manual) 79.3 % Lymphocytes % (Manual) 10.3 % Monocytes % (Manual) 5.2 % Eosinophils % (Manual) 4.3 % Basophils % (Manual) 0.9 % Neutrophils # (Manual) 4.81 K/uL Total Absolute Neutrophils 4.81 K/uL Lymphocytes # (Manual) 0.63 K/uL Total Absolute Lymphocytes 0.63 K/uL Monocytes # (Manual) 0.32 K/uL Eosinophils # (Manual) 0.26 K/uL Basophils # (Manual) 0.05 K/uL Dohle Bodies 1+ Giant Platelets 1+ Ovalocytes 1+ 1+ Prothrombin Time 16.1 SECONDS 15.6 SECONDS Prothromb Time International Ratio 1.5 1.4 Activated Partial Thromboplast Time 35.2 SECONDS 45.8 SECONDS Partial Thromboplastin Ratio 1.4 1.8 Neutrophils (%) (Auto) 68.7 % Lymphocytes (%) (Auto) 14.4 % Monocytes (%) (Auto) 13.1 % Eosinophils (%) (Auto) 3.4 % Basophils (%) (Auto) 0.2 % Neutrophils # (Auto) 3.05 K/uL Lymphocytes # (Auto) 0.64 K/uL Monocytes # (Auto) 0.58 K/uL Eosinophils # (Auto) 0.15 K/uL Basophils # (Auto) 0.01 K/uL Immature Granulocyte % (Auto) 0.2 % Immature Granulocyte # (Auto) 0.01 K/uL Sodium Level 142 mmol/L Potassium Level 4.0 mmol/L Chloride Level 109 mmol/L Carbon Dioxide Level 30 mmol/L Anion Gap 3.0 mmol/L Blood Urea Nitrogen 26 mg/dl Creatinine 1.20 mg/dl Est Creatinine Clear Calc Drug Dose 59.6 ml/min Estimated GFR () 67.7 Estimated GFR (Non- 58.4 BUN/Creatinine Ratio 21.8 Random Glucose 109 mg/dl Calcium Level 7.9 mg/dl Phosphorus Level 2.6 mg/dl Magnesium Level 2.1 mg/dl Procalcitonin 30.99 ng/ml Test 02/02/17 05:38 02/02/17 05:50 Bedside Glucose 104 mg/dl Ionized Calcium 1.10 mmol/l
--- NOTE | 2017-02-02 07:54 | Neurology Progress Notes ---
Neurology Progress Note Date of Service Feb 02, 2017. Subjective Patient was hypotensive yesterday and transferred to the ICU. This AM he is feeling better. Nursing reports no new events overnight. Objective Date Time Temp Pulse Resp B/P (MAP) Pulse Ox O2 Delivery O2 Flow Rate FiO2 02/02/17 06:00 72 14 130/63 (98) 97 109/69 02/02/17 06:00 72 14 130/63 (85) 97 02/02/17 05:59 73 11 (83) 97 108/66 02/02/17 05:59 73 11 108/66 (80) 97 02/02/17 05:00 77 26 127/57 (89) 96 103/64 02/02/17 04:00 79 24 113/56 (76) 92 104/66 02/02/17 04:00 Oxymask 4.0 02/02/17 04:00 79 24 113/56 (75) 92 02/02/17 03:59 79 26 (78) 94 99/63 02/02/17 03:01 81 21 121/63 (85) 97 109/67 02/02/17 02:59 78 24 (84) 96 109/67 02/02/17 02:00 84 22 124/63 (93) 96 101/65 02/02/17 02:00 84 22 124/63 (83) 96 02/02/17 01:59 84 24 (83) 96 105/67 02/02/17 01:59 84 24 105/67 (80) 96 02/02/17 01:00 85 15 123/57 (77) 96 106/67 02/02/17 00:59 83 19 (83) 96 105/66 02/02/17 00:01 77 17 103/64 (77) 95 02/02/17 00:01 77 17 134/57 (81) 95 103/64 02/02/17 00:00 77 21 111/68 (82) 97 02/02/17 00:00 36.9 77 21 (86) 97 111/68 02/01/17 23:59 Oxymask 4.0 02/01/17 23:01 74 21 133/62 (86) 99 114/68 02/01/17 22:59 75 19 (89) 98 114/71 02/01/17 22:31 74 23 128/58 (81) 97 102/70 8/5/17 21:59 77 15 94 02/01/17 21:59 77 15 94 02/01/17 21:58 79 13 94 02/01/17 21:46 82 22 105/53 (70) 89 02/01/17 21:46 82 22 105/53 (61) 89 02/01/17 21:30 76 22 90/56 (67) 99 02/01/17 21:30 76 22 90/56 (61) 99 02/01/17 21:16 78 29 90/56 (67) 96 02/01/17 21:16 78 29 90/56 (66) 96 02/01/17 21:01 76 24 89/56 (67) 100 02/01/17 21:01 76 24 89/56 (62) 100 02/01/17 20:59 75 18 97 02/01/17 20:58 75 26 97 02/01/17 20:45 74 17 91/57 (60) 97 02/01/17 20:45 74 17 91/57 (68) 97 02/01/17 20:30 77 25 89/56 (67) 98 02/01/17 20:30 77 25 89/56 (69) 98 02/01/17 20:15 77 25 85/58 (64) 97 02/01/17 20:15 77 25 85/58 (67) 97 02/01/17 20:08 79 25 80/58 (65) 97 02/01/17 20:08 79 25 80/58 (70) 97 02/01/17 20:00 Oxymask 4.0 02/01/17 17:45 36.6 66 18 85/54 (64) 97 Nasal Cannula 4.0 02/01/17 17:00 36.6 68 18 87/58 (68) 96 Nasal Cannula 4.0 02/01/17 16:00 96 Nasal Cannula 4.0 02/01/17 16:00 36.8 66 18 78/55 (63) 96 Nasal Cannula 4.0 02/01/17 14:45 36.8 66 22 77/51 (60) 97 Nasal Cannula 4.0 02/01/17 11:40 95 Nasal Cannula 4.0 02/01/17 11:39 36.9 67 20 85/38 (54) 95 Nasal Cannula 4.0 02/01/17 07:58 73 18 92/55 (67) 95 6.0 Last 24 Hours Test 02/01/17 18:13 02/01/17 20:23 02/02/17 00:14 02/02/17 04:40 Venous Blood pH 7.29 Venous Blood Partial Pressure CO2 64 mmHg Venous Blood Partial Pressure O2 29 mmHg Venous Blood HCO3 30 mmol/L Venous Blood Oxygen Saturation < 60.0 % Venous Blood Base Excess 2.5 mEq/L Lactic Acid Level 0.9 mmol/L 0.6 mmol/L 0.5 mmol/L White Blood Count 6.07 K/uL 4.44 K/uL Red Blood Count 3.80 M/uL 3.82 M/uL Hemoglobin 10.9 g/dL 10.7 g/dL Hematocrit 35.9 % 35.5 % Mean Corpuscular Volume 94.5 fL 92.9 fL Mean Corpuscular Hemoglobin 28.7 pg 28.0 pg Mean Corpuscular Hemoglobin Concent 30.4 g/dl 30.1 g/dl Platelet Count 60 K/uL 62 K/uL Mean Platelet Volume 11.6 fL 10.7 fL RDW Standard Deviation 61.1 fL 60.6 fL RDW Coefficient of Variation 17.7 % 17.7 % Neutrophils % (Manual) 79.3 % Lymphocytes % (Manual) 10.3 % Monocytes % (Manual) 5.2 % Eosinophils % (Manual) 4.3 % Basophils % (Manual) 0.9 % Neutrophils # (Manual) 4.81 K/uL Total Absolute Neutrophils 4.81 K/uL Lymphocytes # (Manual) 0.63 K/uL Total Absolute Lymphocytes 0.63 K/uL Monocytes # (Manual) 0.32 K/uL Eosinophils # (Manual) 0.26 K/uL Basophils # (Manual) 0.05 K/uL Dohle Bodies 1+ Giant Platelets 1+ Ovalocytes 1+ 1+ Prothrombin Time 16.1 SECONDS 15.6 SECONDS Prothromb Time International Ratio 1.5 1.4 Activated Partial Thromboplast Time 35.2 SECONDS 45.8 SECONDS Partial Thromboplastin Ratio 1.4 1.8 Neutrophils (%) (Auto) 68.7 % Lymphocytes (%) (Auto) 14.4 % Monocytes (%) (Auto) 13.1 % Eosinophils (%) (Auto) 3.4 % Basophils (%) (Auto) 0.2 % Neutrophils # (Auto) 3.05 K/uL Lymphocytes # (Auto) 0.64 K/uL Monocytes # (Auto) 0.58 K/uL Eosinophils # (Auto) 0.15 K/uL Basophils # (Auto) 0.01 K/uL Immature Granulocyte % (Auto) 0.2 % Immature Granulocyte # (Auto) 0.01 K/uL Sodium Level 142 mmol/L Potassium Level 4.0 mmol/L Chloride Level 109 mmol/L Carbon Dioxide Level 30 mmol/L Anion Gap 3.0 mmol/L Blood Urea Nitrogen 26 mg/dl Creatinine 1.20 mg/dl Est Creatinine Clear Calc Drug Dose 59.6 ml/min Estimated GFR () 67.7 Estimated GFR (Non- 58.4 BUN/Creatinine Ratio 21.8 Random Glucose 109 mg/dl Calcium Level 7.9 mg/dl Phosphorus Level 2.6 mg/dl Magnesium Level 2.1 mg/dl Procalcitonin 30.99 ng/ml Test 02/02/17 05:38 02/02/17 05:50 Bedside Glucose 104 mg/dl Ionized Calcium 1.10 mmol/l Exam: He is awake and alert, with normal speech. He is pleasant and cooperative. EOM are intact without nystagmus. There is no facial droop. Coordination of the arms is normal without nystagmus. Motor strength is 4/5 proximally and 5/5 distally as per yesterday. Current Inpatient Medications Medications (Trade) Dose Ordered Sig/[place]ion Route Start Time Stop Time Status Last Admin Dose Admin Acetaminophen (Tylenol Tab) 650 mg Q4H PRN PO 01/30/17 19:15 03/01/17 19:14 01/31/17 23:17 650 MG Al Hydrox/Mg Hydrox/Simethicone (Maalox Max Susp) 15 ml Q4H PRN PO 01/30/17 19:15 03/01/17 19:14 Magnesium Hydroxide (Milk Of Magnesia Susp) 30 ml Q12H PRN PO 01/30/17 19:15 03/01/17 19:14 Ondansetron HCl (Zofran Inj) 4 mg Q6H PRN IV 01/30/17 19:15 03/01/17 19:14 Amiodarone HCl (Cordarone Tab) 200 mg QAM PO 01/31/17 09:00 03/02/17 08:59 8/5/17 07:59 200 MG Aspirin (Ecotrin Tab) 81 mg DAILY PO 01/31/17 09:00 03/02/17 08:59 02/01/17 07:59 81 MG Bumetanide (Bumex Tab) 2 mg BID17 PO 01/31/17 09:00 03/02/17 08:59 Future Hold 01/31/17 17:58 2 MG Famotidine (Pepcid Tab) 20 mg DAILY PO 01/31/17 09:00 03/02/17 08:59 02/01/17 08:00 20 MG Levothyroxine Sodium (Synthroid Tab) 25 mcg DAILYBB PO 01/31/17 06:00 03/02/17 06:59 02/02/17 05:34 25 MCG Metoprolol Succinate (Toprol Xl Tab) 100 mg DAILY PO 01/31/17 09:00 03/02/17 08:59 Future Hold 01/31/17 10:19 100 MG Pravastatin Sodium (Pravachol Tab) 40 mg HS PO 01/30/17 21:00 03/01/17 20:59 Future Hold 01/30/17 21:52 40 MG Tamsulosin HCl (Flomax Cap) 0.4 mg HS PO 01/30/17 21:00 03/01/17 20:59 Future Hold 01/30/17 21:52 0.4 MG Ipratropium [place] (Atrovent 0.02% 0.5MG/2.5ML Neb) 0.5 mg Q6R PRN INH 01/30/17 20:00 03/01/17 19:59 01/31/17 19:32 0.5 MG Levalbuterol (Xopenex 1.25MG/ 0.5ML Neb) 1.25 mg Q6R PRN INH 01/30/17 20:00 03/01/17 19:59 01/31/17 19:32 1.25 MG Ceftriaxone Sodium 1 gm/ Dextrose 50 ml @ 100 mls/hr Q24H IV 01/31/17 14:00 02/07/17 13:59 02/01/17 14:37 100 MLS/HR Doxycycline Hyclate 100 mg/ Dextrose 110 ml @ 50 mls/hr BID IV 01/31/17 21:00 02/02/17 20:59 02/01/17 20:52 50 MLS/HR Vancomycin HCl (Consult) 1 ea UD PRN N/A 01/31/17 15:00 03/02/17 14:59 Vancomycin HCl 1400 mg/Sodium Chloride 528 ml @ 200 mls/hr Q18H IV 02/01/17 10:00 02/15/17 09:59 02/02/17 04:16 200 MLS/HR Miconazole Nitrate (Desenex Powder) 1 appln UD PRN EXT 01/31/17 19:00 03/02/17 18:59 02/01/17 00:22 1 APPLN Pantoprazole Sodium (Protonix Tab) 40 mg QAM PO 02/02/17 09:00 03/04/17 08:59 Dobutamine HCl 250 ml @ 0 mls/hr Q0M PRN IV 02/01/17 19:45 03/03/17 19:44 02/01/17 20:51 5.7 MLS/HR Heparin Sodium/ Dextrose 500 ml @ 21 mls/hr [id number] PRN IV 02/01/17 21:15 03/03/17 21:14 02/02/17 05:25 21 MLS/HR Heparin Sodium (Porcine) (Heparin 10 Unit/ ml 5 ml Flush) 5 ml PRN PRN FLUSH 02/02/17 01:30 03/04/17 01:29 Impression 1. Onset proximal weakness in the legs 8-3. He also has proximal arm weakness. This pattern is consistent, overall, with a myopathy. Clinically he is stabled today compared to yesterday with his strength. There is no evidence for peripheral neuropathy or myelopathy, therefore not consistent with transverse myelitis. He has no meningeal signs or encephalopathy. Elevated CK is noted and goes along with the myopathy. Etiology of the myopathy is most likely secondary to an acute infectious process , consistent with sepsis, creating a so-called "critical illness" myopathy. He does have positive blood cultures 2 although final cultures are pending, fever , and hypotension. Urine testing suggests possible infection source also. He does not seem to have an obvious endocrine source and was not on steroids recently. He has been on statins since at least 2010 and has been on amiodarone since 2012. Combination of these 2 medications can create myopathy. He has no evidence of Lyme disease. 2. Tremor. This is a very mild essential tremor with involving posture and action. There is no resting tremor, rigidity, cogwheeling, bradykinesia or any other Parkinson feature. 3. 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 He has residual weakness and numbness requiring a cane, but no new upper motor neuron or myelopathic process currently. 4. 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 Plan 1. If the patient does not improve, he needs an EMG and nerve conduction studies of the right arm and leg, but this will be done as an outpatient. 2. Physical and occupational therapy consults, increasing activity as able. I suspect his stay at [facility] after hospitalization would be quite beneficial for this patient. I think he would also benefit from a 4 wheeled walker as opposed to his bilateral cane usage. This could be verified by physical therapy. 3. Because of his chronic hoarse voice, and his desire to know if something can be done, we could get a speech therapy consult. As an outpatient, ENT could be consulted. 4. I see no reason for steroids at this time. 5. Continue discontinuation of statin I have no further neurologic recommendations to make regarding this case for now. Please contact me if i can be of further assistance.
[2017-02-02] MEDS: ASPIRIN 81 MG ECTAB PO SCH (08:19)
[2017-02-02] MEDS: PANTOprazole SOD 40 MG TAB PO SCH ×2 (08:20→09:00)
[2017-02-02] MEDS: AMIODARONE 200 MG TAB PO SCH (08:20)
[2017-02-02] MEDS: FAMOTIDINE 20 MG TAB PO SCH (08:21)
[2017-02-02] MEDS: DOXYCYCLINE IV 100 MG in DEXTROSE 5% 100ML 100 ML IV SCH ×2 (08:22→21:45)
--- NOTE | 2017-02-02 08:58 | Cardiology Follow-Up ---
Subjective Date of Service: Feb 02, 2017. Pt evaluation today including: conversation w/ patient, physical exam, lab review, review of studies, review of inpatient medication list History of Present Illness This is a very pleasant 76-year-old gentleman with a long and complex cardiovascular history. 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 [employer] mechanical valve. Postoperatively he had severe aortic insufficiency, was reexplored for cardiac tampanade and mediastinal bleeding and had hemostasis obtained at that time. 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 Postoperatively he did have atrial fibrillation. He required redo aortic valve replacement in September of 2001 for a perivalvular leak and had a [employer] cadaver valve as well as single vessel bypass surgery performed at that time. His ejection fraction was 35% in September 2001 and he had an ICD subsequently implanted April 09, 2002 (Medtronic model 7274). This was replaced October 13, [address] [employer]oni model V258, this also reached [facility] and was replaced on October 27, [address] [employer]oni Ellipse which remains in place. I believe he required repeat aortic valve replacement surgery at [facility] June 28, 2008, and on November 23, 2008 he had an abdominal aortic aneurysm repair at [facility]. An echocardiogram November 02, 2012 showed mild left ventricular dilatation and with an ejection fraction of 45 % with a properly functioning aortic valve. He he also has atrial arrhythmias identified following being seen acutely on April 25, 2010 with significant fluid retention and weight gain. He was diuresed with improvement in his symptoms and decrease in his fluid retention. He was seen for ICD followup on June 14, 2010, at that time ICD diagnostics demonstrated atrial flutter starting around April 06, 2010. It is likely that this rhythm change was a component of his development of fluid retention. I started him on warfarin anticoagulation at that time and scheduled him for cardioversion which was performed on 07/23/2010. I believe he has remained in sinus rhythm since on amiodarone and warfarin. He presents now with acute onset of lower extremity weakness which started 01/30. He was unable to stand up when he got out of bed that morning. He was observed to have slightly elevated troponins in the emergency room, and possibly congestive heart failure on chest x-ray and a moderately elevated BNP. He has also had a fever, leukocytosis and positive blood cultures. He feels much better this morning, he feels like he can go home soon. He has no cardiovascular complaints, no chest discomfort or shortness of breath or palpitations. Social History Smoking Status: Former Smoker History of Alcohol Use: No Review of Systems Respiratory: No cough, No wheezing, No shortness of breath, No dyspnea on exertion Cardiac: No chest pain, No orthopnea, No PND, No edema, No palpitations Inability to stand as noted in history of present illness Objective Vital Signs Past 12 Hours Date Time Temp Pulse Resp B/P (MAP) Pulse Ox O2 Delivery O2 Flow Rate FiO2 02/02/17 06:00 72 14 130/63 (98) 97 109/69 02/02/17 06:00 72 14 130/63 (85) 97 02/02/17 05:59 73 11 (83) 97 108/66 02/02/17 05:59 73 11 108/66 (80) 97 02/02/17 05:00 77 26 127/57 (89) 96 103/64 02/02/17 04:00 79 24 113/56 (76) 92 104/66 02/02/17 04:00 Oxymask 4.0 02/02/17 04:00 79 24 113/56 (75) 92 02/02/17 03:59 79 26 (78) 94 99/63 02/02/17 03:01 81 21 121/63 (85) 97 109/67 02/02/17 02:59 78 24 (84) 96 109/67 02/02/17 02:00 84 22 124/63 (93) 96 101/65 02/02/17 02:00 84 22 124/63 (83) 96 02/02/17 01:59 84 24 (83) 96 105/67 02/02/17 01:59 84 24 105/67 (80) 96 02/02/17 01:00 85 15 123/57 (77) 96 106/67 02/02/17 00:59 83 19 (83) 96 105/66 02/02/17 00:01 77 17 103/64 (77) 95 02/02/17 00:01 77 17 134/57 (81) 95 103/64 02/02/17 00:00 77 21 111/68 (82) 97 02/02/17 00:00 36.9 77 21 (86) 97 111/68 02/01/17 23:59 Oxymask 4.0 02/01/17 23:01 74 21 133/62 (86) 99 114/68 02/01/17 22:59 75 19 (89) 98 114/71 02/01/17 22:31 74 23 128/58 (81) 97 102/70 02/01/17 21:59 77 15 94 02/01/17 21:59 77 15 94 02/01/17 21:58 79 13 94 02/01/17 21:46 82 22 105/53 (70) 89 02/01/17 21:46 82 22 105/53 (61) 89 02/01/17 21:30 76 22 90/56 (67) 99 02/01/17 21:30 76 22 90/56 (61) 99 02/01/17 21:16 78 29 90/56 (67) 96 02/01/17 21:16 78 29 90/56 (66) 96 02/01/17 21:01 76 24 89/56 (67) 100 02/01/17 21:01 76 24 89/56 (62) 100 02/01/17 20:59 75 18 97 02/01/17 20:58 75 26 97 Last Recorded Weight-Kilograms: 96.800 Physical Exam Constitutional: General Apperance: heathly-appearing Level of Distress: NAD Lungs: Respiratory effort: no dyspnea, good air movement Auscultation: no wheezing, rales/crackles on the left, rales/crackles on the right Cardiovascular: Heart Auscultation: RRR, no rubs, no gallops, II/ NORM Peripheral Pulses: Bruits: none appreciated Extremities: no edema Data Laboratory Results: Last 24 Hours Test 02/01/17 18:13 02/01/17 20:23 02/02/17 00:14 02/02/17 04:40 Venous Blood pH 7.29 Venous Blood Partial Pressure CO2 64 mmHg Venous Blood Partial Pressure O2 29 mmHg Venous Blood HCO3 30 mmol/L Venous Blood Oxygen Saturation < 60.0 % Venous Blood Base Excess 2.5 mEq/L Lactic Acid Level 0.9 mmol/L 0.6 mmol/L 0.5 mmol/L White Blood Count 6.07 K/uL 4.44 K/uL Red Blood Count 3.80 M/uL 3.82 M/uL Hemoglobin 10.9 g/dL 10.7 g/dL Hematocrit 35.9 % 35.5 % Mean Corpuscular Volume 94.5 fL 92.9 fL Mean Corpuscular Hemoglobin 28.7 pg 28.0 pg Mean Corpuscular Hemoglobin Concent 30.4 g/dl 30.1 g/dl Platelet Count 60 K/uL 62 K/uL Mean Platelet Volume 11.6 fL 10.7 fL RDW Standard Deviation 61.1 fL 60.6 fL RDW Coefficient of Variation 17.7 % 17.7 % Neutrophils % (Manual) 79.3 % Lymphocytes % (Manual) 10.3 % Monocytes % (Manual) 5.2 % Eosinophils % (Manual) 4.3 % Basophils % (Manual) 0.9 % Neutrophils # (Manual) 4.81 K/uL Total Absolute Neutrophils 4.81 K/uL Lymphocytes # (Manual) 0.63 K/uL Total Absolute Lymphocytes 0.63 K/uL Monocytes # (Manual) 0.32 K/uL Eosinophils # (Manual) 0.26 K/uL Basophils # (Manual) 0.05 K/uL Dohle Bodies 1+ Giant Platelets 1+ Ovalocytes 1+ 1+ Prothrombin Time 16.1 SECONDS 15.6 SECONDS Prothromb Time International Ratio 1.5 1.4 Activated Partial Thromboplast Time 35.2 SECONDS 45.8 SECONDS Partial Thromboplastin Ratio 1.4 1.8 Neutrophils (%) (Auto) 68.7 % Lymphocytes (%) (Auto) 14.4 % Monocytes (%) (Auto) 13.1 % Eosinophils (%) (Auto) 3.4 % Basophils (%) (Auto) 0.2 % Neutrophils # (Auto) 3.05 K/uL Lymphocytes # (Auto) 0.64 K/uL Monocytes # (Auto) 0.58 K/uL Eosinophils # (Auto) 0.15 K/uL Basophils # (Auto) 0.01 K/uL Immature Granulocyte % (Auto) 0.2 % Immature Granulocyte # (Auto) 0.01 K/uL Sodium Level 142 mmol/L Potassium Level 4.0 mmol/L Chloride Level 109 mmol/L Carbon Dioxide Level 30 mmol/L Anion Gap 3.0 mmol/L Blood Urea Nitrogen 26 mg/dl Creatinine 1.20 mg/dl Est Creatinine Clear Calc Drug Dose 59.6 ml/min Estimated GFR () 67.7 Estimated GFR (Non- 58.4 BUN/Creatinine Ratio 21.8 Random Glucose 109 mg/dl Calcium Level 7.9 mg/dl Phosphorus Level 2.6 mg/dl Magnesium Level 2.1 mg/dl Procalcitonin 30.99 ng/ml Test 02/02/17 05:38 02/02/17 05:50 Bedside Glucose 104 mg/dl Ionized Calcium 1.10 mmol/l Imaging: Chest x-ray for line placement showing no significant heart failure Telemetry reviewed: Sinus rhythm, left bundle branch block continues Assessment and Plan #1. Elevated troponin: He has slight troponin elevation, but it was relatively stable and not in the range I would consider an acute infarction. He does have mild kidney disease and this can increase troponin values. He does not have symptoms to suggest myocardial ischemia. Probably related to sepsis. I would not pursue this further at this time. #2. Congestive heart failure: He probably does have mild congestive heart failure, his BNP is elevated and he does have left ventricular dysfunction and his chest x-ray is suggestive. Gentle diuresis would probably be in order, his weight has been climbing. I will increase his diuretic. He does have a wide QRS complex which is left bundle, this would suggest dyssynchrony however his overall left ventricle ejection fraction is not low enough that I would consider a biventricular upgrade at this time. That may be a future consideration. #3. Dual-chamber ICD: His ICD has been functioning well with excellent pacing and sensing characteristics in both chambers when recently evaluated in the office. Battery voltage has been excellent with a projected life time of over 4 years remaining. That probably does not need to be evaluated now. #4. Atrial fibrillation: Mr. Garcia is doing well with his arrhythmia, he has not had recurrence since his cardioversion years ago and feels well, the device does monitor for atrial fibrillation and none has been recorded recently as of 01/22/2017. #5. Aortic valve replacement: His valve is functioning well both clinically and by echo. #6. Positive blood cultures: 2 out of 2 positive from 01/31/2017 for gram- positive cocci one typed as group B strep. Sensitivities pending. Worrisome in view of his cardiovascular hardware in place. I don't know that his WILLI would be helpful but may be a consideration. We can review this with infectious disease, I would certainly not do it right now. Thank you for allowing me to participate in his care.
[2017-02-02 12:49] LABS: PARTIAL THROMBOPLASTIN RATIO 1.9
[2017-02-02] MEDS: CEFTRIAXONE SOD INJ 1 GM in DEXTROSE 5% ADD-VANTAGE 50ML 50 ML IV SCH (14:00)
[2017-02-03] VITALS (17 sets, daily range): BP systolic 93–129; BP diastolic 54–85; PULSE 67–89; TEMP 36.8–37.1; O2SAT 85–98
--- NOTE | 2017-02-03 00:25 | Hospitalist Progress Note ---
Hospitalist Progress Note Date of Service Feb 02, 2017. Subjective Pt evaluation today including: conversation w/ patient, lab review, conversation w/ senior health consultant (Security Ambassador), review of inpatient medication list Voiding: suggs catheter in place Feeling much better, sitting in chair by bed. BPs are much improved and now off dobutamine gtt from overnight in ICU. Making urine, less O2 requirement, now afebrile. Growing GBS in blood. 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 He and state that they want no further workup or treatment for either finding. They do desire continued abx treatment, but if in the course of treatment, he were to become hypotensive again or develop severe sepsis, he desires to not have pressors or any aggressive treatment in the future. Security Ambassador had this discussion with pt in room while I was present. Denies CP. All Other Systems: Reviewed and Negative Objective Vital Signs Date Time Temp Pulse Resp B/P (MAP) Pulse Ox O2 Delivery O2 Flow Rate FiO2 02/02/17 06:00 72 14 130/63 (98) 97 109/69 02/02/17 06:00 72 14 130/63 (85) 97 02/02/17 05:59 73 11 (83) 97 108/66 02/02/17 05:59 73 11 108/66 (80) 97 02/02/17 05:00 77 26 127/57 (89) 96 103/64 02/02/17 04:00 79 24 113/56 (76) 92 104/66 02/02/17 04:00 Oxymask 4.0 02/02/17 04:00 79 24 113/56 (75) 92 02/02/17 03:59 79 26 (78) 94 99/63 02/02/17 03:01 81 21 121/63 (85) 97 109/67 02/02/17 02:59 78 24 (84) 96 109/67 02/02/17 02:00 84 22 124/63 (93) 96 101/65 02/02/17 02:00 84 22 124/63 (83) 96 02/02/17 01:59 84 24 (83) 96 105/67 02/02/17 01:59 84 24 105/67 (80) 96 02/02/17 01:00 85 15 123/57 (77) 96 106/67 02/02/17 00:59 83 19 (83) 96 105/66 02/02/17 00:01 77 17 103/64 (77) 95 02/02/17 00:01 77 17 134/57 (81) 95 103/64 02/02/17 00:00 77 21 111/68 (82) 97 02/02/17 00:00 36.9 77 21 (86) 97 111/68 02/01/17 23:59 Oxymask 4.0 02/01/17 23:01 74 21 133/62 (86) 99 114/68 02/01/17 22:59 75 19 (89) 98 114/71 02/01/17 22:31 74 23 128/58 (81) 97 102/70 02/01/17 21:59 77 15 94 02/01/17 21:59 77 15 94 02/01/17 21:58 79 13 94 02/01/17 21:46 82 22 105/53 (70) 89 02/01/17 21:46 82 22 105/53 (61) 89 02/01/17 21:30 76 22 90/56 (67) 99 02/01/17 21:30 76 22 90/56 (61) 99 02/01/17 21:16 78 29 90/56 (67) 96 02/01/17 21:16 78 29 90/56 (66) 96 02/01/17 21:01 76 24 89/56 (67) 100 02/01/17 21:01 76 24 89/56 (62) 100 02/01/17 20:59 75 18 97 02/01/17 20:58 75 26 97 02/01/17 20:45 74 17 91/57 (60) 97 02/01/17 20:45 74 17 91/57 (68) 97 02/01/17 20:30 77 25 89/56 (67) 98 02/01/17 20:30 77 25 89/56 (69) 98 02/01/17 20:15 77 25 85/58 (64) 97 02/01/17 20:15 77 25 85/58 (67) 97 02/01/17 20:08 79 25 80/58 (65) 97 02/01/17 20:08 79 25 80/58 (70) 97 02/01/17 20:00 Oxymask 4.0 02/01/17 17:45 36.6 66 18 85/54 (64) 97 Nasal Cannula 4.0 02/01/17 17:00 36.6 68 18 87/58 (68) 96 Nasal Cannula 4.0 02/01/17 16:00 96 Nasal Cannula 4.0 02/01/17 16:00 36.8 66 18 78/55 (63) 96 Nasal Cannula 4.0 02/01/17 14:45 36.8 66 22 77/51 (60) 97 Nasal Cannula 4.0 02/01/17 11:40 95 Nasal Cannula 4.0 02/01/17 11:39 36.9 67 20 85/38 (54) 95 Nasal Cannula 4.0 Physical Exam General Appearance: WD/WN, no apparent distress Eyes: normal inspection, sclerae normal ENT: hearing grossly normal Neck: trachea midline Respiratory/Chest: no respiratory distress, no accessory muscle use, + crackles (at bases bilat) Cardiovascular: regular rate, rhythm, + systolic murmur (2/6 RUSB), + pertinent finding (trace pitting edema legs bilat) Abdomen: normal bowel sounds, non tender, soft Extremities: non-tender, no calf tenderness Neurologic/Psychiatric: alert, normal mood/affect, oriented x 3 Skin: normal color, warm/dry, no rash Laboratory Results Last 24 Hours Test 02/01/17 18:13 02/01/17 20:23 02/02/17 00:14 02/02/17 04:40 Venous Blood pH 7.29 Venous Blood Partial Pressure CO2 64 mmHg Venous Blood Partial Pressure O2 29 mmHg Venous Blood HCO3 30 mmol/L Venous Blood Oxygen Saturation < 60.0 % Venous Blood Base Excess 2.5 mEq/L Lactic Acid Level 0.9 mmol/L 0.6 mmol/L 0.5 mmol/L White Blood Count 6.07 K/uL 4.44 K/uL Red Blood Count 3.80 M/uL 3.82 M/uL Hemoglobin 10.9 g/dL 10.7 g/dL Hematocrit 35.9 % 35.5 % Mean Corpuscular Volume 94.5 fL 92.9 fL Mean Corpuscular Hemoglobin 28.7 pg 28.0 pg Mean Corpuscular Hemoglobin Concent 30.4 g/dl 30.1 g/dl Platelet Count 60 K/uL 62 K/uL Mean Platelet Volume 11.6 fL 10.7 fL RDW Standard Deviation 61.1 fL 60.6 fL RDW Coefficient of Variation 17.7 % 17.7 % Neutrophils % (Manual) 79.3 % Lymphocytes % (Manual) 10.3 % Monocytes % (Manual) 5.2 % Eosinophils % (Manual) 4.3 % Basophils % (Manual) 0.9 % Neutrophils # (Manual) 4.81 K/uL Total Absolute Neutrophils 4.81 K/uL Lymphocytes # (Manual) 0.63 K/uL Total Absolute Lymphocytes 0.63 K/uL Monocytes # (Manual) 0.32 K/uL Eosinophils # (Manual) 0.26 K/uL Basophils # (Manual) 0.05 K/uL Dohle Bodies 1+ Giant Platelets 1+ Ovalocytes 1+ 1+ Prothrombin Time 16.1 SECONDS 15.6 SECONDS Prothromb Time International Ratio 1.5 1.4 Activated Partial Thromboplast Time 35.2 SECONDS 45.8 SECONDS Partial Thromboplastin Ratio 1.4 1.8 Neutrophils (%) (Auto) 68.7 % Lymphocytes (%) (Auto) 14.4 % Monocytes (%) (Auto) 13.1 % Eosinophils (%) (Auto) 3.4 % Basophils (%) (Auto) 0.2 % Neutrophils # (Auto) 3.05 K/uL Lymphocytes # (Auto) 0.64 K/uL Monocytes # (Auto) 0.58 K/uL Eosinophils # (Auto) 0.15 K/uL Basophils # (Auto) 0.01 K/uL Immature Granulocyte % (Auto) 0.2 % Immature Granulocyte # (Auto) 0.01 K/uL Sodium Level 142 mmol/L Potassium Level 4.0 mmol/L Chloride Level 109 mmol/L Carbon Dioxide Level 30 mmol/L Anion Gap 3.0 mmol/L Blood Urea Nitrogen 26 mg/dl Creatinine 1.20 mg/dl Est Creatinine Clear Calc Drug Dose 59.6 ml/min Estimated GFR () 67.7 Estimated GFR (Non- 58.4 BUN/Creatinine Ratio 21.8 Random Glucose 109 mg/dl Calcium Level 7.9 mg/dl Phosphorus Level 2.6 mg/dl Magnesium Level 2.1 mg/dl Procalcitonin 30.99 ng/ml Test 02/02/17 05:38 02/02/17 05:50 Bedside Glucose 104 mg/dl Ionized Calcium 1.10 mmol/l Diagnostic Results reviewed images of CT chest/abd/pel and agree with findings by Radiology Assessment and Plan 76-year-old male presents to the emergency department with complaints of acute onset of bilateral lower extremity weakness which turns out to be more of a generalized weakness. 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 In the ER, he was found to be hypoxic with possible exacerbation of CHF and was initially treated with IV lasix. He then spiked a fever and became hypotensive after admission. He is admitted with severe sepsis, likely PNA as the source with productive cough, acute hypoxemic respiratory failure, abnormal CXR, and now with GPC bacteremia. Acute hypoxemic respiratory failure w/ hypoxia, secondary to PNA, sepsis, and acute on chronic systolic CHF-hypotension now resolved after treatment with dobutamine and continued abx for sepsis and bacteremia. Much improved overall. RIJ CVC placed 02/01 With severe sepsis, LLL PNA as the source with productive cough, hypoxia, abnormal CXR/CT, and now with Group B Strep bacteremia. ECHO without obvious vegetation, EF 35%. Has BOVINE AVR and pacer/ICD in place, aortic graft (indwelling foreign bodies) Ur cx negative Random cortisol normal; PCT elevated at 28 suggestive of bacterial infection consistent with GPC bacteremia- PCT trending down CT Chest showed: 1. Cardiomegaly and coronary artery calcifications 2. Presumed surgical repair of a descending thoracic aortic dissection 3. Trace bilateral pleural effusions 4. Elevation of left hemidiaphragm with left lower lobe atelectasis/consolidation 5. 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 Splenomegaly - continue telemetry monitoring -keep in ICU in case of need for Dobutamine again over next 24 hrs -remains on Rocephin, Doxy, Vanco, MRSA (although nasal swab neg), but can likely narrow down to Rocephin alone--> will await ID recommendations on Friday -ID consult appreciated--> will likely need retirement IV abx given pacer/ICD, AVR with GPC bacteremia - O2 protocol, wean as tolerated- does NOT wear O2 supplement at baseline -HOLD Bumex 2 mg BID - Suggs placed- monitor I&Os and daily weights - Xopenex/ipratropium nebs q 6 hr for SOB/wheezing -follow repeat BCxs and await for negative BCxs before placing PICC line -f/u Anaplasmosis but now not likely given GPC in BCx - Consult cardiology, appreciate recommendations but will have to hold off on diuresis until sepsis resolved -will likely need WILLI to look at AV, possibly Friday Thrombocytopenia- likely secondary to sepsis. 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 Harish 60k, no evidence of bleeding. Plts up to 62k today - Follow CBC -treating sepsis Elevated troponin, Demand ischemia, likely secondary to hypoxia and possibly renal function- asymptomatic: - Telemetry monitoring as noted above - Trend cardiac enzymes- peaked trop at 0.095 - Follow EKG QAM and PRN w/ CP -continues on ASA but may need to hold given thrombocytopenia Lower and some upper extremity weakness/generalized, likely secondary to myopathy from sepsis-NOT Transverse myelitis: - Neurology consulted, appreciate recommendations to check Laboratory studies to include TSH, B-12, folate, free T4, Lyme antibody titers, aldolase -- Hold statin -- EMG and nerve conduction studies as an outpatient -- PT/OT - Elevated CPK- continue to trend but is now going down-check again in AM Paroxysmal A-fib/flutter, Bovine AVR, s/p ICD placement- follows w/ Dr. Richardson--> numerous cardiac surgeries, AVR x 3, sternal nonunion repair, Aortic dissection with grafting in 2000. No A-fib since [facility] 2010 as per Cardiology notes - hold Toprol, hold Bumex -continue Amiodarone 200 mg QAM, ASA 81 mg daily but may need to hold ASA as above - now holding Warfarin as per Security Ambassador and on heparin gtt for bridging - restart warfarin tomorrow? SANTHOSH on CKD, stage III, baseline Cr. 1.2 and was 1.8 on admission-today 1.2 and is improved - Avoid nephrotoxic agents - Follow PRP -keep BP up Hypothyroidism: - Continue Synthroid 25 mcg daily - TSH/free T4 normal HTN- -holding all antihypertensives due to hypotension Dyslipidemia: Pravastatin 40 mg HS held due to elevated CK AAA with dissection- 6.[address] here--> pt does not desire surgery Renal mass-pt does not desire workup CT abd/pel: 1. Cholelithiasis 2. Splenomegaly 3. In addition to multiple renal cysts, there is an indeterminate 32 mm left renal mass possibly representing a solid renal neoplasm. A dedicated renal CT scan or MRI is recommended in follow-up 4. Fusiform aneurysm of the abdominal aorta involving both the suprarenal and infrarenal abdominal aorta. The maximal aortic diameter is 61 mm. There is a suspected infrarenal abdominal aortic dissection which extends into the right iliac. 5. No evidence of bowel obstruction. No evidence of free air 6. Left femoral hernia containing a portion of sigmoid colon. No current evidence of obstruction 7. Nonspecific stranding of the retroperitoneal fat at the right common iliac level BPH: Flomax held due to hypotension -continue Suggs catheter GI Prophylaxis: Pepcid DVT Prophylaxis: heparin gtt Code Status: LEVEL V, DNR Dispo: From home- social services aide consulted - PT/OT evaluations
[2017-02-03 05:57] LABS: INR 1.4 (0.9-1.1); PARTIAL THROMBOPLASTIN RATIO 1.6; PROTHROMBIN TIME (PATIENT) 15.4 SECONDS (9.0-12.0)
[2017-02-03] MEDS ORDERED: HEPARIN IV BOLUS 3,000 UNIT in SYRINGE 0 ML IV STA (06:12)
[2017-02-03 06:15] LABS: HEMATOCRIT 36.2 % (42-52); MEAN CELL VOLUME 93.5 fL (80-100); MEAN CORPUSCULAR HEMOGLOBIN 28.4 pg (25-34); MEAN CORPUSCULAR HGB CONC 30.4 g/dl (32-36); MEAN PLATELET VOLUME 11.1 fL (7.4-10.4); PLATELET COUNT 87 K/uL (130-400); RED BLOOD COUNT 3.87 M/uL (4.7-6.1); WHITE BLOOD COUNT 4.91 K/uL (4.8-10.8)
[2017-02-03 06:21] LABS: BUN/CREATININE RATIO 20.6 (10-20); CALCIUM 8.2 mg/dl (8.5-10.1); MAGNESIUM 2.2 mg/dl (1.8-2.4); POTASSIUM 3.9 mmol/L (3.5-5.1)
[2017-02-03 06:22] LABS: PHOSPHORUS 3.1 mg/dl (2.5-4.9)
[2017-02-03] MEDS: LEVOTHYROXINE 25 MCG TAB PO SCH (06:33)
[2017-02-03] MEDS ORDERED: OPTIRAY 320 IV PRN (07:45)
[2017-02-03] MEDS: DOXYCYCLINE IV 100 MG in DEXTROSE 5% 100ML 100 ML IV SCH (08:11)
[2017-02-03] MEDS: AMIODARONE 200 MG TAB PO SCH (10:05)
[2017-02-03] MEDS: ASPIRIN 81 MG ECTAB PO SCH (10:05)
[2017-02-03] MEDS: FAMOTIDINE 20 MG TAB PO SCH (10:06)
--- NOTE | 2017-02-03 10:29 | Critical Care Progress Note ---
Critical Care Progress Note Date of Service Feb 03, 2017. ICU Day ICU Day Number: [address] Bueno Subjective NO acute events overnight. Patient reports no complaints. He reports his overall strength as improving. He denies Chest pain, SOB, palpitation, fevers, chills. Objective GENERAL: alert, well appearing, no distress, OROPHARYNX: no exudate, no erythema, lips, buccal mucosa, and tongue normal and mucous membranes are moist NECK: supple, no nuchal rigidity, no adenopathy, non-tender LUNGS: Exp wheeze. Normal chest wall mechanics HEART: Systolic Ejection murmur, S1 normal and S2 normal ABDOMEN: abdomen soft, non-tender, normo-active bowel sounds, no masses, no rebound or guarding. SKIN: no rashes and no bruising UPPER EXTREMITIES: upper extremities are grossly normal. 4/5 strength minesh LOWER EXTREMITIES: 4/5 strength minesh LE, 5/5 Strength Minesh UE, NEURO EXAM: A Ox3, cranial nerves II-XII grossly intact, normal speech, no gross weakness of arms, no gross weakness of legs. Current SOFA Score SOFA Score Response (Comments) Value SaO2 / FIO2 221 - 301 1 Platelets (x10) < 100 2 Bilirubin (mg/dL) < 1.2 0 Deonna Coma Score 15 0 Level of Hypotension No Hypotension 0 Creatinine (mg/dL) 1.2 - 1.9 1 Total 4 Assessment & Plan 76 yo M w hx of Transverse myelitis, Afib/Aflutter, CHF, CKD III, AAA s/p repair presenting with Weakness primarily of the LE likely secondary to myopathy in the setting of Sepsis/ Grp B Strep Bacteremia with new finding of multiple recental cysts and Left renal mass of undetermined origin. 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 Fusiform aneurysm of the abdominal aorta involving both the suprarenal and infrarenal abdominal aorta. The maximal aortic diameter is 61 mm. There is a suspected infrarenal abdominal aortic dissection which extends into the right iliac. AAA: Aortic diameter 61 mm, CT findings suspicious for infrarenal dissection, however clinically patient remains asymptomatic and stable so dissection less likely. Fluids/Renal: Multiple Renal cysts. Renal Mass CT abdomen multiple renal cysts, there is an indeterminate 32 mm left renal mass possibly representing a solid renal neoplasm. Seen by Urology, Plan for CT abdomen/pelvis today, Renal Biopsy at later date IV Fluids: Fluids from intravenous medications Net Urine: 2800 in, 2100 out , net 700 Urine output > .5 ml/kg/hr Sandoval: Present GI/Nutrition: NPO prior to procedure Feeding: Low sodium AHA diet Prophylaxis: On PPI Endocrine: Last 24 hour glucose: Ranging 97-109 Continue to monitor Hematology: Hemoglobin 11 DVT prophylaxis: Heparin Infectious Disease/Immunology: Group B strep Bacteremia, christianson-sensitive afebrile, no leukocytosis Tmax: 37.1, Antimicrobials: day 4 Vancomycin d/c'd Doxycycline d/c'd Ceftriaxone Monotherapy at 2gm q24 hrs Cultures: Blood: Gram positive cocci , Grp b Strep Lyme Neg. A. phagocytophilum Ab's pending Attending Note, the pt seen and examined , case reviewed in details on rounds and with the staff appreciate the hard work of Dr. Meek, for details please refer to his note. in summary, this is 76, male, with sepsis due to strep pansensitive species, hx of AVR times three, AAA size 6.1 cm, sepsis resolved and not on pressors, his VSS, S1S2 with occasional PVC's. Lungs with scattered rhonchi, abdomen is benign, venous stasis in the lower ext. also, found to have left renal lesion about 1.2 cm in size. Plan: 1- de-escalate Abx , appreciate ID input. 2- Ceftriaxone at 2 gm daily should be adequate. 3- dc Protonix, ( pt is on Pepcid). 4- BP stable off pressors. sepsis is resolving. 5- RIJ line site without erythema. 6- continue heparin drip. 7- Urology work up if desired for renal lesion, can be done as op as well once improved. 8- restart coumadin if no procedure is planned. 9- oral intake. 10- can be transferred to a monitored bed if Ok with the hospitalist service. discussed in details with the staff and the pt with his sister at the bed side, CCT 45 min including coordinating the above. Consults & Procedures Consultants: Neurology Infectious Disease Procedures: arterial line Data Medications: Current Inpatient Medications Medications (Trade) Dose Ordered Sig/Deion Route Start Time Stop Time Status Last Admin Dose Admin Acetaminophen (Tylenol Tab) 650 mg Q4H PRN PO 01/30/17 19:15 03/01/17 19:14 01/31/17 23:17 650 MG Al Hydrox/Mg Hydrox/Simethicone (Maalox Max Susp) 15 ml Q4H PRN PO 01/30/17 19:15 03/01/17 19:14 Magnesium Hydroxide (Milk Of Magnesia Susp) 30 ml Q12H PRN PO 01/30/17 19:15 03/01/17 19:14 Ondansetron HCl (Zofran Inj) 4 mg Q6H PRN IV 01/30/17 19:15 03/01/17 19:14 Amiodarone HCl (Cordarone Tab) 200 mg QAM PO 01/31/17 09:00 03/02/17 08:59 02/02/17 08:20 200 MG Aspirin (Ecotrin Tab) 81 mg DAILY PO 01/31/17 09:00 03/02/17 08:59 02/02/17 08:19 81 MG Bumetanide (Bumex Tab) 2 mg BID17 PO 01/31/17 09:00 03/02/17 08:59 Future Hold 01/31/17 17:58 2 MG Famotidine (Pepcid Tab) 20 mg DAILY PO 01/31/17 09:00 03/02/17 08:59 02/02/17 08:21 20 MG Levothyroxine Sodium (Synthroid Tab) 25 mcg DAILYBB PO 01/31/17 06:00 03/02/17 06:59 02/03/17 06:33 25 MCG Metoprolol Succinate (Toprol Xl Tab) 100 mg DAILY PO 01/31/17 09:00 03/02/17 08:59 Future Hold 01/31/17 10:19 100 MG Pravastatin Sodium (Pravachol Tab) 40 mg HS PO 01/30/17 21:00 03/01/17 20:59 Future Hold 01/30/17 21:52 40 MG Tamsulosin HCl (Flomax Cap) 0.4 mg HS PO 01/30/17 21:00 03/01/17 20:59 Future Hold 01/30/17 21:52 0.4 MG Ipratropium Elfrida (Atrovent 0.02% 0.5MG/2.5ML Neb) 0.5 mg Q6R PRN INH 01/30/17 20:00 03/01/17 19:59 01/31/17 19:32 0.5 MG Levalbuterol (Xopenex 1.25MG/ 0.5ML Neb) 1.25 mg Q6R PRN INH 01/30/17 20:00 03/01/17 19:59 01/31/17 19:32 1.25 MG Ceftriaxone Sodium 1 gm/ Dextrose 50 ml @ 100 mls/hr Q24H IV 01/31/17 14:00 02/07/17 13:59 02/02/17 14:00 100 MLS/HR Doxycycline Hyclate 100 mg/ Dextrose 110 ml @ 50 mls/hr BID IV 01/31/17 21:00 02/07/17 20:59 02/03/17 08:11 50 MLS/HR Vancomycin HCl (Consult) 1 ea UD PRN N/A 01/31/17 15:00 03/02/17 14:59 Vancomycin HCl 1400 mg/Sodium Chloride 528 ml @ 200 mls/hr Q18H IV 02/01/17 10:00 02/15/17 09:59 02/02/17 21:35 200 MLS/HR Miconazole Nitrate (Desenex Powder) 1 appln UD PRN EXT 01/31/17 19:00 03/02/17 18:59 02/01/17 00:22 1 APPLN Dobutamine HCl 250 ml @ 0 mls/hr Q0M PRN IV 02/01/17 19:45 03/03/17 19:44 02/01/17 20:51 5.7 MLS/HR Heparin Sodium/ Dextrose 500 ml @ 23 mls/hr [id number] PRN IV 02/01/17 21:15 03/03/17 21:14 02/02/17 21:37 21 MLS/HR Heparin Sodium (Porcine) (Heparin 10 Unit/ ml 5 ml Flush) 5 ml PRN PRN FLUSH 02/02/17 01:30 03/04/17 01:29 Ioversol (Optiray 320) 100 ml UD PRN IV 02/03/17 07:45 02/07/17 07:44 Vital Signs: Date Time Temp Pulse Resp B/P (MAP) Pulse Ox O2 Delivery O2 Flow Rate FiO2 02/03/17 08:06 36.8 76 22 129/85 (100) 95 Nasal Cannula 4.0 02/03/17 08:00 95 Nasal Cannula 4.0 02/03/17 06:00 85 29 94 02/03/17 06:00 89 29 112/72 (85) 94 Oxymask 4.0 02/03/17 05:00 83 28 93/59 (71) 02/03/17 04:01 76 16 98/62 (81) 02/03/17 04:01 76 16 98/62 (74) 02/03/17 04:00 77 26 02/03/17 04:00 Oxymask 4.0 02/03/17 04:00 Oxymask 4.0 02/03/17 02:01 80 29 113/55 (74) 96 02/03/17 00:00 37.1 84 21 129/60 (83) 93 02/02/17 23:59 Oxymask 4.0 02/02/17 22:01 79 27 129/60 (83) 99 02/02/17 20:01 37.3 73 24 147/65 (92) 96 02/02/17 20:00 Oxymask 4.0 02/02/17 20:00 73 22 98 02/02/17 18:01 74 21 145/63 (90) 98 Room Air 02/02/17 16:01 36.9 75 23 142/70 (94) 91 Room Air 02/02/17 16:00 96 Room Air 02/02/17 14:00 72 17 133/66 (88) 91 Room Air 02/02/17 12:00 37.1 74 18 124/59 (80) 94 Room Air 92.0 02/02/17 12:00 92 Room Air 02/02/17 10:00 71 16 109/47 (67) 92 Room Air Laboratory Results: Last 24 Hours Test 02/02/17 11:40 02/02/17 12:05 02/02/17 18:03 02/02/17 18:09 Bedside Glucose 147 mg/dl Activated Partial Thromboplast Time 50.1 SECONDS Partial Thromboplastin Ratio 1.9 Lactic Acid Level 1.2 mmol/L 0.7 mmol/L Procalcitonin 22.15 ng/ml Test 02/02/17 21:29 02/02/17 21:32 02/03/17 05:20 02/03/17 05:24 Vancomycin Level Trough 14.4 mcg/ml Bedside Glucose 101 mg/dl 99 mg/dl White Blood Count 4.91 K/uL Red Blood Count 3.87 M/uL Hemoglobin 11.0 g/dL Hematocrit 36.2 % Mean Corpuscular Volume 93.5 fL Mean Corpuscular Hemoglobin 28.4 pg Mean Corpuscular Hemoglobin Concent 30.4 g/dl RDW Standard Deviation 61.0 fL RDW Coefficient of Variation 17.7 % Platelet Count 87 K/uL Mean Platelet Volume 11.1 fL Prothrombin Time 15.4 SECONDS Prothromb Time International Ratio 1.4 Activated Partial Thromboplast Time 42.2 SECONDS Partial Thromboplastin Ratio 1.6 Sodium Level 143 mmol/L Potassium Level 3.9 mmol/L Chloride Level 110 mmol/L Carbon Dioxide Level 30 mmol/L Anion Gap 3.0 mmol/L Blood Urea Nitrogen 21 mg/dl Creatinine 1.00 mg/dl Est Creatinine Clear Calc Drug Dose 72.1 ml/min Estimated GFR () 84.4 Estimated GFR (Non- 72.8 BUN/Creatinine Ratio 20.6 Random Glucose 97 mg/dl Calcium Level 8.2 mg/dl Phosphorus Level 3.1 mg/dl Magnesium Level 2.2 mg/dl Resident Tracking Resident Involvement: Resident Care Provided Care Provided: Adult [facility]
--- NOTE | 2017-02-03 11:33 | Progress Note ---
Subjective Date of Service: Feb 03, 2017. Subjective pt in ct scan at time of exam. initial blood culture with gbs. remains on broad spectrum abx. repeat cutlures negative to date. TTE with no veg. remains afebrile. 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 repeat scan being done. per records family does not want aggressive therapy right now. tolerating abx. wbc 4.9. Objective Vital Signs Date Time Temp Pulse Resp B/P (MAP) Pulse Ox O2 Delivery O2 Flow Rate FiO2 02/03/17 08:06 36.8 76 22 129/85 (100) 95 Nasal Cannula 4.0 02/03/17 08:00 95 Nasal Cannula 4.0 02/03/17 06:00 85 29 94 02/03/17 06:00 89 29 112/72 (85) 94 Oxymask 4.0 02/03/17 05:00 83 28 93/59 (71) 02/03/17 04:01 76 16 98/62 (81) 02/03/17 04:01 76 16 98/62 (74) 02/03/17 04:00 77 26 02/03/17 04:00 Oxymask 4.0 02/03/17 04:00 Oxymask 4.0 02/03/17 02:01 80 29 113/55 (74) 96 02/03/17 00:00 37.1 84 21 129/60 (83) 93 02/02/17 23:59 Oxymask 4.0 02/02/17 22:01 79 27 129/60 (83) 99 02/02/17 20:01 37.3 73 24 147/65 (92) 96 02/02/17 20:00 Oxymask 4.0 02/02/17 20:00 73 22 98 02/02/17 18:01 74 21 145/63 (90) 98 Room Air 02/02/17 16:01 36.9 75 23 142/70 (94) 91 Room Air 02/02/17 16:00 96 Room Air 02/02/17 14:00 72 17 133/66 (88) 91 Room Air 02/02/17 12:00 37.1 74 18 124/59 (80) 94 Room Air 92.0 02/02/17 12:00 92 Room Air Laboratory Results Item Value Date Time Blood Culture - Preliminary Resulted 02/01/17 1013 Blood NO GROWTH TO DATE. Blood Culture - Preliminary Resulted 02/01/17 1005 Blood NO GROWTH TO DATE. Blood Culture - Preliminary Resulted 01/31/17 1354 Blood Group B Beta Strep Blood Culture - Preliminary Resulted 01/31/17 1344 Blood Group B Beta Strep Blood Culture - Final Complete 01/31/17 1354 Blood Group B Beta Strep Blood Culture - Final Complete 01/31/17 1344 Blood Group B Beta Strep Last 24 Hours Test 02/02/17 11:40 02/02/17 12:05 02/02/17 18:03 02/02/17 18:09 Bedside Glucose 147 mg/dl Activated Partial Thromboplast Time 50.1 SECONDS Partial Thromboplastin Ratio 1.9 Lactic Acid Level 1.2 mmol/L 0.7 mmol/L Procalcitonin 22.15 ng/ml Test 02/02/17 21:29 02/02/17 21:32 02/03/17 05:20 02/03/17 05:24 Vancomycin Level Trough 14.4 mcg/ml Bedside Glucose 101 mg/dl 99 mg/dl White Blood Count 4.91 K/uL Red Blood Count 3.87 M/uL Hemoglobin 11.0 g/dL Hematocrit 36.2 % Mean Corpuscular Volume 93.5 fL Mean Corpuscular Hemoglobin 28.4 pg Mean Corpuscular Hemoglobin Concent 30.4 g/dl RDW Standard Deviation 61.0 fL RDW Coefficient of Variation 17.7 % Platelet Count 87 K/uL Mean Platelet Volume 11.1 fL Prothrombin Time 15.4 SECONDS Prothromb Time International Ratio 1.4 Activated Partial Thromboplast Time 42.2 SECONDS Partial Thromboplastin Ratio 1.6 Sodium Level 143 mmol/L Potassium Level 3.9 mmol/L Chloride Level 110 mmol/L Carbon Dioxide Level 30 mmol/L Anion Gap 3.0 mmol/L Blood Urea Nitrogen 21 mg/dl Creatinine 1.00 mg/dl Est Creatinine Clear Calc Drug Dose 72.1 ml/min Estimated GFR () 84.4 Estimated GFR (Non- 72.8 BUN/Creatinine Ratio 20.6 Random Glucose 97 mg/dl Calcium Level 8.2 mg/dl Phosphorus Level 3.1 mg/dl Magnesium Level 2.2 mg/dl Assessment and Plan (1) Beta-hemolytic group B streptococcal sepsis Assessment & Plan: spoke with ICU, will narrow abx to ctx 2 g daily. Ideally wound benefit form WILLI to exam ICD leads but suspect he receive prolong course abx regardless, 6 weeks. repeat culture negative. If family does not wish to continue with aggressive measures and would not want surgery, WILLI less likely to be needed. follow repeat ct scan and follow family decisions regarding further care. will continue abx for now. (2) Fever
--- NOTE | 2017-02-03 11:35 | Urology Consultation ---
History General Date of Service: Feb 03, 2017. Chief Complaint: left renal mass Primary Care Physician: Byron Vizcaino M.D. Pt seen a urologist before?: Yes (Dr. Connor Ellis ) If yes, why?: BPH History of Present Illness 76 yo male admitted with sepsis. Incidental finding of suspected left renal mass on non-contrast CT. consulted for this reason. CT with and without IV contrast obtained showing bilateral renal cysts as well as a 32mm left renal mass highly suspicious for RCC. The pt denies any pain or gross hematuria. He has previously seen Dr. Ellis for BPH as an outpatient. Flomax held while inpatient d/t hypotension. Sandoval catheter currently in place draining clear, yellow urine. Imaging Imaging: CT Laboratory Last 24 Hours Test 02/02/17 11:40 02/02/17 12:05 02/02/17 18:03 02/02/17 18:09 Bedside Glucose 147 mg/dl Activated Partial Thromboplast Time 50.1 SECONDS Partial Thromboplastin Ratio 1.9 Lactic Acid Level 1.2 mmol/L 0.7 mmol/L Procalcitonin 22.15 ng/ml Test 02/02/17 21:29 02/02/17 21:32 02/03/17 05:20 02/03/17 05:24 Vancomycin Level Trough 14.4 mcg/ml Bedside Glucose 101 mg/dl 99 mg/dl White Blood Count 4.91 K/uL Red Blood Count 3.87 M/uL Hemoglobin 11.0 g/dL Hematocrit 36.2 % Mean Corpuscular Volume 93.5 fL Mean Corpuscular Hemoglobin 28.4 pg Mean Corpuscular Hemoglobin Concent 30.4 g/dl RDW Standard Deviation 61.0 fL RDW Coefficient of Variation 17.7 % Platelet Count 87 K/uL Mean Platelet Volume 11.1 fL Prothrombin Time 15.4 SECONDS Prothromb Time International Ratio 1.4 Activated Partial Thromboplast Time 42.2 SECONDS Partial Thromboplastin Ratio 1.6 Sodium Level 143 mmol/L Potassium Level 3.9 mmol/L Chloride Level 110 mmol/L Carbon Dioxide Level 30 mmol/L Anion Gap 3.0 mmol/L Blood Urea Nitrogen 21 mg/dl Creatinine 1.00 mg/dl Est Creatinine Clear Calc Drug Dose 72.1 ml/min Estimated GFR () 84.4 Estimated GFR (Non- 72.8 BUN/Creatinine Ratio 20.6 Random Glucose 97 mg/dl Calcium Level 8.2 mg/dl Phosphorus Level 3.1 mg/dl Magnesium Level 2.2 mg/dl Past History A Fib, congestive heart failure, other (CKD stage III) Past Surgical History: pacemaker, other (AVR in 2000, aortic dissection s/p repair ) Family History Patient reports no known family medical history. Social History Hx Tobacco Use In Past Year?: No Smoking: other (Quit 20 years ago ) Alcohol: never Drug use: none Marital status: Housing status: lives with family Occupation status: retired Immunizations History of Influenza Vaccine: No History of Tetanus Vaccine?: Yes History of Pneumococcal: Yes Pneumococcal Date: Apr 08, 2002 History of Hepatitis B Vaccine: No History of MDRO No Allergies Coded Allergies: Adhesives (Verified Adverse Reaction, Mild, 0, 01/30/17) Medications Home Medications: Home Meds and Scripts Medications Dose Route/Sig Max Daily Dose Days Date Category Dose Instructions Levothyroxine Sodium 25 Mcg Tab 25 Mcg PO QAM 01/30/17 Reported Ramipril 5 Mg Cap 5 Mg PO DAILY 01/30/17 Reported Famotidine 20 Mg Tab 20 Mg PO DAILY 01/30/17 Reported Amiodarone HCl 200 Mg Tab 200 Mg PO QAM 01/30/17 Reported Bumex (Bumetanide) 2 Mg Tab 2 Mg PO BID 01/30/17 Reported Tamsulosin HCl 0.4 Mg Cap 0.4 Mg PO HS 01/30/17 Reported Aspirin 81 Mg Chw 81 Mg PO DAILY 01/30/17 Reported Docusate Sodium 100 Mg Cap 100 Mg PO BID 01/30/17 Reported Coumadin (Warfarin Sod) 2.5 Mg Tab 2.5 Mg PO DIRECTED 01/23/15 Reported TAKE 2.5MG ON Friday Coumadin (Warfarin Sod) 2.5 Mg Tab 1.25 Mg PO MWF 01/23/15 Reported Pravastatin Sodium 40 Mg Tab 40 Mg HS 10/27/12 Reported Potassium Chloride Er (Potassium Chloride) 10 Meq Tab 10 Meq BID 10/27/12 Reported Toprol Xl (Metoprolol Succinate) 100 Mg Tab 100 Mg PO DAILY 10/27/12 Reported Lecithin 1,200 Mg Cap 1,200 Mg DAILY 10/27/12 Reported [place]-3 (Fish Oil) 1 Ea Cap 1 Cap PO DAILY 10/27/12 Reported Nitrostat (Nitroglycerin) 0.4 Mg Tab 0.4 Mg UT PRN 07/23/10 Reported Tylenol (Acetaminophen) 325 Mg Tab 650 Mg PO Q4HR PRN 12/01/08 Reported Multivitamin (Multivitamins) Tab 1 Tab PO DAILY 12/07/08 Reported Inpatient Medications: Current Inpatient Medications Medications (Trade) Dose Ordered Sig/Deion Route Start Time Stop Time Status Last Admin Dose Admin Acetaminophen (Tylenol Tab) 650 mg Q4H PRN PO 01/30/17 19:15 03/01/17 19:14 01/31/17 23:17 650 MG Al Hydrox/Mg Hydrox/Simethicone (Maalox Max Susp) 15 ml Q4H PRN PO 01/30/17 19:15 03/01/17 19:14 Magnesium Hydroxide (Milk Of Magnesia Susp) 30 ml Q12H PRN PO 01/30/17 19:15 03/01/17 19:14 Ondansetron HCl (Zofran Inj) 4 mg Q6H PRN IV 01/30/17 19:15 03/01/17 19:14 Amiodarone HCl (Cordarone Tab) 200 mg QAM PO 01/31/17 09:00 03/02/17 08:59 02/03/17 10:05 200 MG Aspirin (Ecotrin Tab) 81 mg DAILY PO 01/31/17 09:00 03/02/17 08:59 02/03/17 10:05 81 MG Bumetanide (Bumex Tab) 2 mg BID17 PO 01/31/17 09:00 03/02/17 08:59 Future Hold 01/31/17 17:58 2 MG Famotidine (Pepcid Tab) 20 mg DAILY PO 01/31/17 09:00 03/02/17 08:59 02/03/17 10:06 20 MG Levothyroxine Sodium (Synthroid Tab) 25 mcg DAILYBB PO 01/31/17 06:00 03/02/17 06:59 02/03/17 06:33 25 MCG Metoprolol Succinate (Toprol Xl Tab) 100 mg DAILY PO 01/31/17 09:00 03/02/17 08:59 Future Hold 01/31/17 10:19 100 MG Pravastatin Sodium (Pravachol Tab) 40 mg HS PO 01/30/17 21:00 03/01/17 20:59 Future Hold 01/30/17 21:52 40 MG Tamsulosin HCl (Flomax Cap) 0.4 mg HS PO 01/30/17 21:00 03/01/17 20:59 Future Hold 01/30/17 21:52 0.4 MG Ipratropium [place] (Atrovent 0.02% 0.5MG/2.5ML Neb) 0.5 mg Q6R PRN INH 01/30/17 20:00 03/01/17 19:59 01/31/17 19:32 0.5 MG Levalbuterol (Xopenex 1.25MG/ 0.5ML Neb) 1.25 mg Q6R PRN INH 01/30/17 20:00 03/01/17 19:59 01/31/17 19:32 1.25 MG Miconazole Nitrate (Desenex Powder) 1 appln UD PRN EXT 01/31/17 19:00 03/02/17 18:59 02/01/17 00:22 1 APPLN Dobutamine HCl 250 ml @ 0 mls/hr Q0M PRN IV 02/01/17 19:45 03/03/17 19:44 02/01/17 20:51 5.7 MLS/HR Heparin Sodium/ Dextrose 500 ml @ 23 mls/hr [id number] PRN IV 02/01/17 21:15 03/03/17 21:14 02/02/17 21:37 21 MLS/HR Heparin Sodium (Porcine) (Heparin 10 Unit/ ml 5 ml Flush) 5 ml PRN PRN FLUSH 02/02/17 01:30 03/04/17 01:29 Ioversol (Optiray 320) 100 ml UD PRN IV 02/03/17 07:45 02/07/17 07:44 Ceftriaxone Sodium 2000 mg/ Dextrose 70 ml @ 100 mls/hr Q24H IV 02/03/17 14:00 02/17/17 13:59 Review of Systems Review of Systems Constitutional: No fever, No chills Eyes: No double vision Neurological: No dizzy Endocrine: No excessive thirst Gastrointestinal: No abdominal pain, No nausea, No vomiting Cardiovascular: No chest pain Respiratory: No shortness of breath Skin: No rash Musculoskeletal: + arthritis Male : No painful urination, No blood in urine Physical Exam Vital Signs: Vital Signs Past 12 Hours Date Time Temp Pulse Resp B/P (MAP) Pulse Ox O2 Delivery O2 Flow Rate FiO2 02/03/17 08:06 36.8 76 22 129/85 (100) 95 Nasal Cannula 4.0 02/03/17 08:00 95 Nasal Cannula 4.0 02/03/17 06:00 85 29 94 02/03/17 06:00 89 29 112/72 (85) 94 Oxymask 4.0 02/03/17 05:00 83 28 93/59 (71) 02/03/17 04:01 76 16 98/62 (81) 02/03/17 04:01 76 16 98/62 (74) 02/03/17 04:00 77 26 02/03/17 04:00 Oxymask 4.0 02/03/17 04:00 Oxymask 4.0 02/03/17 02:01 80 29 113/55 (74) 96 02/03/17 00:00 37.1 84 21 129/60 (83) 93 02/02/17 23:59 Oxymask 4.0 Physical Exam: General Appearance: no apparent distress Eyes: bilateral eyes normal inspection ENT: hearing grossly normal Neck: no JVD Respiratory/Chest: no respiratory distress, no accessory muscle use Cardiovascular: no JVD Extremities: normal inspection Neurologic/Psychiatric: alert, normal mood/affect, oriented x 3 Skin: normal color Assessment & Plan Assessment & Plan A/P: 32mm left renal mass suspicious for RCC AFVSS. Left renal mass suspicious for RCC on CT. Discussed results with the pt. Consider intervention with radical nephrectomy vs partial nephrectomy vs cryo therapy vs observation. The pt would need cardiac and medical clearance for any potential surgery given his hx of a-fib, pacemaker, CHF, and AAA dissection. Also needs to recover from recent episode of sepsis prior to considering any interventions. Will plan to f/u with him in the office in the next 2-3 weeks to discuss potential surgical interventions. Recommend TOV prior to d/c home and restarting Flomax for his BPH when able. Thanks for the consult. Will arrange outpatient f/u. No further management at this time. Recall PRN issues. The pt was seen and assessed with Dr. Ellis this morning.
--- NOTE | 2017-02-03 12:41 | DIAGNOSTIC IMAGING REPORT ---
CT OF THE ABDOMEN AND PELVIS WITH AND WITHOUT CONTRAST RENAL PROTOCOL CLINICAL HISTORY: Left renal mass. COMPARISON STUDY: CT of the abdomen and pelvis February 01, 2017. TECHNIQUE: Unenhanced images of the abdomen were obtained followed by nephrographic phase imaging of the abdomen and pelvis following injection of 119 cc Optiray 320 IV. 5 minute delayed phase imaging of the abdomen was performed. A dose lowering technique was utilized adhering to the principles of ALARA. CT DOSE: 2556.78 mGycm FINDINGS: Visualized portions of the chest demonstrate pacer leads and prosthetic aortic valve. Small left and trace right pleural effusions are noted with associated airspace opacities which favor atelectasis. Heart is moderately enlarged. An abdominal aortic aneurysm with dissection is again noted. This dissection is similar in appearance to exam of September 11, 2009. Dissection flap begins proximal to the celiac axis. Aneurysmal dilatation at the level the celiac axis is similar to CT of September 11, 2009, measuring 5.2 cm. Infrarenal abdominal aortic aneurysm has increased since prior exam, now measuring 6.2 cm. It previously measured 4.6 cm on exam of September 11, 2009. Aneurysmal dilatation of the right common iliac artery, measuring 2.9 cm is unchanged. A few subcentimeter hepatic lesions are too small to characterize but likely reflect cysts. There are gallstones within the gallbladder. The spleen, adrenal glands and pancreas are unremarkable. There is no evidence for a bowel obstruction. There is no lymphadenopathy. Note is made of numerous water attenuation bilateral renal lesions consistent with cysts. However, a 3.5 x 3.4 cm lesion within the midpole of the left kidney demonstrates significant enhancement. This is consistent with a solid renal lesion likely reflects a renal cell carcinoma. No additional enhancing renal lesions are present. There is no lymphadenopathy. No suspicious skeletal lesions are present. A portion of the descending colon is noted with a left inguinal hernia. A Sandoval balloon is present within the bladder. IMPRESSION: 1. 3.5 x 3.4 cm enhancing lesion within the midpole of the left kidney consistent with renal cell carcinoma. 2. Numerous bilateral renal cysts. No additional enhancing renal lesions. 3. No evidence of metastatic disease within the abdomen or pelvis. 4. Redemonstration of a dissection flap within the abdominal aorta which was shown on CT of September 11, 2009. Extent of dissection is similar to prior exam. Moderate interval increase in caliber of a 6.2 cm infrarenal abdominal aortic aneurysm since CT of September 11, 2009. Electronically signed by: Man Das M.D. 02/03/2017 12:39 PM Dictated Date/Time: 02/03/2017 9:54 AM
[2017-02-03 13:22] LABS: PARTIAL THROMBOPLASTIN RATIO 1.8
[2017-02-03] MEDS ORDERED: HEPARIN IV BOLUS 3,000 UNIT in SYRINGE 0 ML IV ONE (15:00)
[2017-02-03] MEDS: CEFTRIAXONE SOD INJ 2,000 MG in DEXTROSE 5% 50ML 50 ML IV SCH (15:00)
[2017-02-03] MEDS ORDERED: WARFARIN SOD 5 MG TAB PO ONE (16:15)
--- NOTE | 2017-02-03 17:39 | Progress Note ---
Subjective Date of Service: Feb 03, 2017. Subjective Pt evaluation today including: conversation w/ patient, conversation w/ family , physical exam, chart review, lab review, review of studies, conversation w/ environmental consultant, review of inpatient medication list Sitting upright in chair No sob noted Cough productive of white phlegm Titrated off pressors Ambulates in hallway No other concerns noted Review of Systems Constitutional: No fever, No chills, No sweats, No weight loss, No weakness Respiratory: + cough, + sputum, No wheezing, No shortness of breath, No dyspnea on exertion Cardiac: No chest pain, No orthopnea, No PND, No edema, No claudication Abdomen: No pain, No nausea, No vomiting, No diarrhea, No constipation Musculoskeletal: No joint pain, No muscle pain, No swelling, No calf pain Male : No dysuria, No urinary frequency, No incontinence, No slowing stream Neurologic: No memory loss, No paralysis, No weakness, No numbness/tingling Psychiatric: No depression symptoms, No anhedonism, No anxiety Skin: No rash, No itch Objective Vital Signs Date Time Temp Pulse Resp B/P (MAP) Pulse Ox O2 Delivery O2 Flow Rate FiO2 02/03/17 16:01 36.9 85 16 111/54 (73) 92 Room Air 02/03/17 16:00 92 Room Air 02/03/17 14:00 67 22 129/61 (83) 97 02/03/17 12:02 37.1 77 16 126/83 (97) 97 Oxymask 4.0 02/03/17 12:00 98 Nasal Cannula 4.0 02/03/17 10:03 71 16 128/63 (84) 90 Room Air 02/03/17 08:06 36.8 76 22 129/85 (100) 95 Nasal Cannula 4.0 02/03/17 08:00 95 Nasal Cannula 4.0 02/03/17 06:00 85 29 94 02/03/17 06:00 89 29 112/72 (85) 94 Oxymask 4.0 02/03/17 05:00 83 28 93/59 (71) 02/03/17 04:01 76 16 98/62 (81) 02/03/17 04:01 76 16 98/62 (74) 02/03/17 04:00 77 26 02/03/17 04:00 Oxymask 4.0 02/03/17 04:00 Oxymask 4.0 02/03/17 02:01 80 29 113/55 (74) 96 02/03/17 00:00 37.1 84 21 129/60 (83) 93 02/02/17 23:59 Oxymask 4.0 02/02/17 22:01 79 27 129/60 (83) 99 02/02/17 20:01 37.3 73 24 147/65 (92) 96 02/02/17 20:00 Oxymask 4.0 02/02/17 20:00 73 22 98 02/02/17 18:01 74 21 145/63 (90) 98 Room Air Physical Exam General Appearance: WD/WN, no apparent distress Eyes: normal inspection, sclerae normal Neck: supple, no adenopathy, thyroid normal, no JVD Respiratory/Chest: chest non-tender, lungs clear, normal breath sounds, no respiratory distress Cardiovascular: regular rate, rhythm, no edema, no gallop, no JVD, no murmur Abdomen: normal bowel sounds, non tender, soft, no organomegaly Neurologic/Psychiatric: no motor/sensory deficits, alert, normal mood/affect, oriented x 3 Laboratory Results Last 24 Hours Test 02/02/17 18:03 02/02/17 18:09 02/02/17 21:29 02/02/17 21:32 Procalcitonin 22.15 ng/ml Lactic Acid Level 0.7 mmol/L Vancomycin Level Trough 14.4 mcg/ml Bedside Glucose 101 mg/dl Test 02/03/17 05:20 02/03/17 05:24 02/03/17 12:06 02/03/17 12:36 White Blood Count 4.91 K/uL Red Blood Count 3.87 M/uL Hemoglobin 11.0 g/dL Hematocrit 36.2 % Mean Corpuscular Volume 93.5 fL Mean Corpuscular Hemoglobin 28.4 pg Mean Corpuscular Hemoglobin Concent 30.4 g/dl RDW Standard Deviation 61.0 fL RDW Coefficient of Variation 17.7 % Platelet Count 87 K/uL Mean Platelet Volume 11.1 fL Prothrombin Time 15.4 SECONDS Prothromb Time International Ratio 1.4 Activated Partial Thromboplast Time 42.2 SECONDS 46.6 SECONDS Partial Thromboplastin Ratio 1.6 1.8 Sodium Level 143 mmol/L Potassium Level 3.9 mmol/L Chloride Level 110 mmol/L Carbon Dioxide Level 30 mmol/L Anion Gap 3.0 mmol/L Blood Urea Nitrogen 21 mg/dl Creatinine 1.00 mg/dl Est Creatinine Clear Calc Drug Dose 72.1 ml/min Estimated GFR () 84.4 Estimated GFR (Non- 72.8 BUN/Creatinine Ratio 20.6 Random Glucose 97 mg/dl Calcium Level 8.2 mg/dl Phosphorus Level 3.1 mg/dl Magnesium Level 2.2 mg/dl Bedside Glucose 99 mg/dl 110 mg/dl Assessment and Plan 76-year-old male presents to the emergency department with complaints of acute onset of bilateral lower extremity weakness which turns out to be more of a generalized weakness. 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 In the ER, he was found to be hypoxic with possible exacerbation of CHF and was initially treated with IV lasix. He then spiked a fever and became hypotensive after admission. He is admitted with severe sepsis, likely PNA as the source with productive cough, acute hypoxemic respiratory failure, abnormal CXR, and now with GPC bacteremia. Acute hypoxemic respiratory failure w/ hypoxia, secondary to PNA, sepsis, and acute on chronic systolic CHF-hypotension now resolved after treatment with dobutamine and continued abx for sepsis and bacteremia. Much improved overall. RIJ CVC placed 02/01 With severe sepsis, LLL PNA as the source with productive cough, hypoxia, abnormal CXR/CT, and now with Group B Strep bacteremia. ECHO without obvious vegetation, EF 35%. Has BOVINE AVR and pacer/ICD in place, aortic graft (indwelling foreign bodies) Ur cx negative Random cortisol normal; PCT elevated at 28 suggestive of bacterial infection consistent with GPC bacteremia- PCT trending down CT Chest showed: 1. Cardiomegaly and coronary artery calcifications 2. Presumed surgical repair of a descending thoracic aortic dissection 3. Trace bilateral pleural effusions 4. Elevation of left hemidiaphragm with left lower lobe atelectasis/consolidation 5. 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 Splenomegaly -Transfer from ICU to [facility], cont on rocephin at this time only -Appreciate ID recs -Spoke to fam, not wanting WILLI at this time, strep bacteremia noted - O2 protocol, wean as tolerated- does NOT wear O2 supplement at baseline -HOLD Bumex 2 mg BID - Sandoval placed- monitor I&Os and daily weights - Xopenex/ipratropium nebs q 6 hr for SOB/wheezing Thrombocytopenia- likely secondary to sepsis. 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 Harish 60k, no evidence of bleeding. Plts up to 80sk today -Follow CBC Elevated troponin, Demand ischemia, likely secondary to hypoxia and possibly renal function- asymptomatic: - Telemetry monitoring as noted above - Trend cardiac enzymes- peaked trop at 0.095 - Follow EKG QAM and PRN w/ CP -continues on ASA but may need to hold given thrombocytopenia Lower and some upper extremity weakness/generalized, likely secondary to myopathy from sepsis-NOT Transverse myelitis: - Neurology consulted, appreciate recommendations to check Laboratory studies to include TSH, B-12, folate, free T4, Lyme antibody titers, aldolase -- Hold statin -- EMG and nerve conduction studies as an outpatient -- PT/OT - Elevated CPK- continue to trend but is now going down-check again in AM Paroxysmal A-fib/flutter, Bovine AVR, s/p ICD placement- follows w/ Dr. Richardson--> numerous cardiac surgeries, AVR x 3, sternal nonunion repair, Aortic dissection with grafting in 2000. No A-fib since [facility] 2010 as per Cardiology notes - hold Toprol, hold Bumex -continue Amiodarone 200 mg QAM, ASA 81 mg daily, warfarin SANTHOSH on CKD, stage III, baseline Cr. 1.2 and was 1.8 on admission-today 1.0 and is improved - Avoid nephrotoxic agents - Follow PRP -keep BP up Hypothyroidism: - Continue Synthroid 25 mcg daily - TSH/free T4 normal HTN- -holding all antihypertensives due to hypotension Dyslipidemia: Pravastatin 40 mg HS held due to elevated CK AAA with dissection- 6.[address] here--> pt does not desire surgery Renal mass-pt does not desire workup
--- NOTE | 2017-02-03 18:25 | CARDIOLOGY PROGRESS NOTE ---
DATE: 02/03/2017 SUBJECTIVE: The patient was seen by me early this morning in his intensive care unit room. He states he is feeling stronger and he did on admission. He states he is able to walk in his room. He denies any myalgias. No chest pain. No orthopnea or PND. No dyspnea at rest or with his normal activities, walking in the room. No abdominal pain or nausea. He denies any GI complaints. He denies any urinary complaints. No focal neurologic symptoms. MEDICATIONS: Warfarin 5 mg daily, ceftriaxone 2 grams IV daily, amiodarone 200 mg daily, aspirin 81 mg daily, famotidine 20 mg daily, levothyroxine 25 mcg daily, and several p.r.n. medications. ALLERGIES AND ADVERSE DRUG REACTIONS: TO ADHESIVES. PHYSICAL EXAMINATION: VITAL SIGNS: At 10:03 a.m. this morning were pulse 71, blood pressure 128/63, pulse oximetry 90% on room air. Oral temperature earlier this morning 36.8. NECK: No jugular venous distention. LUNGS: Normal respiratory effort. Scant bibasilar rales. HEART: Regular rate and rhythm. 2/6 systolic murmur, second intercostal space ____ sternal border. No diastolic murmur or rub. ABDOMEN: Soft. Nontender. No palpable masses or organomegaly. No bruits. EXTREMITIES: No pretibial edema. No calf tenderness. NEUROLOGIC: Alert and oriented x3. He can move all extremities. PSYCHIATRIC: Affect is normal. DATA: Two blood cultures from January 31 with group B beta strep. LABORATORY DATA: Today with WBC 4.91, hemoglobin 11.0, hematocrit 36.2, platelet count 87,000. INR this morning 1.4. PTT was 42.2. Metabolic profile today was sodium 143, potassium 3.9, chloride 110, carbon dioxide 30, BUN 21, creatinine 1.0, random glucose 97, magnesium 2.2. ASSESSMENT: 1. Status post aortic valve replacement. 2. Status post coronary artery bypass grafting surgery. 3. Status post repair of type A aortic dissection in the past. Status post repair of abdominal aortic aneurysm in the past. 4. No anginal symptoms at this time. Troponin I's on January 30 and January 31 were mildly elevated. 5. Echocardiogram this admission with moderate left ventricular systolic dysfunction. Left ventricular ejection fraction 35-40%. No significant valvular regurgitation was noted. Mild to moderate right ventricular dilatation. Slightly reduced right ventricular systolic function. 6. Positive blood cultures. Group B beta strep. 7. Hypertension earlier during this admission. Blood pressure now good. 8. Remote history of atrial arrhythmias. 9. The patient has previously refused any further cardiac evaluation or aortic evaluation. He declines any further invasive cardiac procedures or invasive vascular procedures. RECOMMENDATIONS: 1. From a pure cardiac standpoint, there is no indication for transesophageal echocardiogram. On transthoracic echo, there is no significant valvular regurgitation. Even if the patient has a significant valvular abnormality, he refuses any further invasive cardiac procedures. He refuses repeat cardiac surgery. 2. Agree with recommendations to treat with 6 weeks of antibiotics. He has extensive aortic grafts. Even if the transesophageal echo did not reveal any evidence of valvular regurgitation would still treat for possible graft infection. 3. Continue amiodarone. 4. Continue anticoagulation. 5. No further cardiac workup or evaluation at this time.
[2017-02-03 21:40] LABS: PARTIAL THROMBOPLASTIN RATIO 2.1
[2017-02-03] MEDS: HEPARIN 25,000 UNIT/500ML D5W 500 ML IV PRN (23:01)
[2017-02-04] VITALS (11 sets, daily range): BP systolic 104–158; BP diastolic 46–71; PULSE 74–90; TEMP 36.6–37.1; O2SAT 86–100
[2017-02-04] MEDS: LEVOTHYROXINE 25 MCG TAB PO SCH (05:19)
[2017-02-04 05:52] LABS: INR 1.5 (0.9-1.1); PROTHROMBIN TIME (PATIENT) 16.7 SECONDS (9.0-12.0)
[2017-02-04] MEDS: AMIODARONE 200 MG TAB PO SCH (07:52)
[2017-02-04] MEDS: MICONAZOLE NITRATE POWDER 43 GM EXT PRN (07:52)
[2017-02-04] MEDS: ASPIRIN 81 MG ECTAB PO SCH (07:52)
[2017-02-04] MEDS: FAMOTIDINE 20 MG TAB PO SCH (07:53)
[2017-02-04] MEDS: CEFTRIAXONE SOD INJ 2,000 MG in DEXTROSE 5% 50ML 50 ML IV SCH (13:12)
[2017-02-04] MEDS: WARFARIN SOD 5 MG TAB PO SCH (15:21)
[2017-02-04] MEDS: MAGNESIUM HYDROXIDE SUSP 30 ML UDC PO PRN (15:21)
[2017-02-04] MEDS: HEPARIN 25,000 UNIT/500ML D5W 500 ML IV PRN (20:37)
--- NOTE | 2017-02-04 23:14 | Progress Note ---
Subjective Date of Service: Feb 04, 2017. Subjective Pt evaluation today including: conversation w/ patient, conversation w/ family , physical exam, chart review, lab review, review of studies, review of inpatient medication list Review of Systems Constitutional: No fever, No chills Respiratory: No cough, No sputum, No wheezing, No shortness of breath, No dyspnea on exertion Cardiac: No chest pain, No orthopnea, No PND, No edema Abdomen: No pain, No nausea, No vomiting, No diarrhea, No constipation Musculoskeletal: No joint pain, No muscle pain, No swelling Male : No dysuria, No urinary frequency, No incontinence, No slowing stream Neurologic: No memory loss, No weakness, No numbness/tingling Psychiatric: No depression symptoms, No anhedonism, No anxiety, No insomnia Skin: No rash, No itch Objective Vital Signs Date Time Temp Pulse Resp B/P (MAP) Pulse Ox O2 Delivery O2 Flow Rate FiO2 02/04/17 20:00 Oxymask 2.0 02/04/17 18:41 37.1 78 20 144/67 (92) 94 2.0 02/04/17 18:01 36.8 82 18 92 2.0 02/04/17 15:30 Oxymask 2.0 02/04/17 15:16 36.8 82 18 137/56 (83) 92 Oxymask 2.0 02/04/17 12:11 36.8 74 13 104/46 (65) 95 Oxymask 2.0 02/04/17 12:00 Oxymask 2.0 02/04/17 08:00 Oxymask 3.0 02/04/17 07:27 36.9 76 21 111/56 (74) 94 Oxymask 3.0 02/04/17 07:00 86 Room Air 02/04/17 04:00 98 Oxymask 4.0 02/04/17 03:42 36.6 83 22 142/62 (88) 98 Oxymask 4.0 02/04/17 00:04 36.6 90 22 134/66 (88) 94 Oxymask 4.0 02/03/17 23:59 94 Oxymask 4.0 Physical Exam General Appearance: WD/WN, no apparent distress Eyes: normal inspection, PERRL, EOMI, sclerae normal ENT: normal ENT inspection, hearing grossly normal, TMs normal Neck: supple, no adenopathy, thyroid normal, no JVD Respiratory/Chest: chest non-tender, no respiratory distress, no accessory muscle use, + decreased breath sounds Cardiovascular: regular rate, rhythm, no gallop, no JVD, no murmur Abdomen: non tender, soft, no organomegaly Extremities: non-tender, normal inspection, no pedal edema, no calf tenderness Neurologic/Psychiatric: no motor/sensory deficits, alert, normal mood/affect, oriented x 3 Skin: normal color, warm/dry, no rash Lymphatic: no adenopathy Laboratory Results Last 24 Hours Test 02/04/17 05:11 02/04/17 05:13 Prothrombin Time 16.7 SECONDS Prothromb Time International Ratio 1.5 Activated Partial Thromboplast Time 53.0 SECONDS Partial Thromboplastin Ratio 2.0 Creatinine 1.00 mg/dl Est Creatinine Clear Calc Drug Dose 72.6 ml/min Estimated GFR () 84.4 Estimated GFR (Non- 72.8 Bedside Glucose 101 mg/dl Assessment and Plan 76-year-old male presents to the emergency department with complaints of acute onset of bilateral lower extremity weakness which turns out to be more of a generalized weakness. 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 In the ER, he was found to be hypoxic with possible exacerbation of CHF and was initially treated with IV lasix. He then spiked a fever and became hypotensive after admission. He is admitted with severe sepsis, likely PNA as the source with productive cough, acute hypoxemic respiratory failure, abnormal CXR, and now with GPC bacteremia. Acute hypoxemic respiratory failure w/ hypoxia, secondary to PNA, sepsis, and acute on chronic systolic CHF-hypotension now resolved after treatment with dobutamine and continued abx for sepsis and bacteremia. Much improved overall. RIJ CVC placed 02/01 With severe sepsis, LLL PNA as the source with productive cough, hypoxia, abnormal CXR/CT, and now with Group B Strep bacteremia. ECHO without obvious vegetation, EF 35%. Has BOVINE AVR and pacer/ICD in place, aortic graft (indwelling foreign bodies) Ur cx negative Random cortisol normal; PCT elevated at 28 suggestive of bacterial infection consistent with GPC bacteremia- PCT trending down CT Chest showed: 1. Cardiomegaly and coronary artery calcifications 2. Presumed surgical repair of a descending thoracic aortic dissection 3. Trace bilateral pleural effusions 4. Elevation of left hemidiaphragm with left lower lobe atelectasis/consolidation 5. 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 Splenomegaly -Transfer from ICU to [facility], cont on rocephin at this time only -Appreciate ID recs, will likely need prolonged IV therapy -Spoke to fam, not wanting WILLI at this time, strep bacteremia noted - O2 protocol, wean as tolerated- does NOT wear O2 supplement at baseline -HOLD Bumex 2 mg BID - Sandoval placed- monitor I&Os and daily weights - Xopenex/ipratropium nebs q 6 hr for SOB/wheezing Thrombocytopenia- likely secondary to sepsis. 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 Harish 60k, no evidence of bleeding. Plts improving -Follow CBC Elevated troponin, Demand ischemia, likely secondary to hypoxia and possibly renal function- asymptomatic: - Telemetry monitoring as noted above - Trend cardiac enzymes- peaked trop at 0.095 - Follow EKG QAM and PRN w/ CP -continues on ASA but may need to hold given thrombocytopenia Lower and some upper extremity weakness/generalized, likely secondary to myopathy from sepsis-NOT Transverse myelitis: - Neurology consulted, appreciate recommendations to check Laboratory studies to include TSH, B-12, folate, free T4, Lyme antibody titers, aldolase -- Hold statin -- EMG and nerve conduction studies as an outpatient -- PT/OT - Elevated CPK- continue to trend but is now going down-check again in AM Paroxysmal A-fib/flutter, Bovine AVR, s/p ICD placement- follows w/ Dr. Richardson--> numerous cardiac surgeries, AVR x 3, sternal nonunion repair, Aortic dissection with grafting in 2000. No A-fib since [facility] 2010 as per Cardiology notes - hold Toprol, hold Bumex -continue Amiodarone 200 mg QAM, ASA 81 mg daily, warfarin SANTHOSH on CKD, stage III, baseline Cr. 1.2 and was 1.8 on admission-today 1.0 and is improved - Avoid nephrotoxic agents - Follow PRP -keep BP up Hypothyroidism: - Continue Synthroid 25 mcg daily - TSH/free T4 normal HTN- -holding all antihypertensives due to hypotension Dyslipidemia: Pravastatin 40 mg HS held due to elevated CK AAA with dissection- 6.[address] here--> pt does not desire surgery Renal mass-pt does not desire workup
[2017-02-05] VITALS (7 sets, daily range): BP systolic 85–139; BP diastolic 53–75; PULSE 66–86; TEMP 36.6–36.9; O2SAT 93–97
[2017-02-05] MEDS: HEPARIN 25,000 UNIT/500ML D5W 500 ML IV PRN ×2 (04:34→17:25)
[2017-02-05 05:30] LABS: HEMATOCRIT 36.7 % (42-52); MEAN CELL VOLUME 93.9 fL (80-100); MEAN CORPUSCULAR HEMOGLOBIN 27.9 pg (25-34); MEAN CORPUSCULAR HGB CONC 29.7 g/dl (32-36); MEAN PLATELET VOLUME 12.2 fL (7.4-10.4); PLATELET COUNT 121 K/uL (130-400); RED BLOOD COUNT 3.91 M/uL (4.7-6.1); WHITE BLOOD COUNT 5.64 K/uL (4.8-10.8)
[2017-02-05 05:46] LABS: INR 2.2 (0.9-1.1); PARTIAL THROMBOPLASTIN RATIO 1.9; PROTHROMBIN TIME (PATIENT) 23.8 SECONDS (9.0-12.0)
[2017-02-05] MEDS: LEVOTHYROXINE 25 MCG TAB PO SCH (06:35)
[2017-02-05] MEDS: ASPIRIN 81 MG ECTAB PO SCH (07:37)
[2017-02-05] MEDS: FAMOTIDINE 20 MG TAB PO SCH (07:38)
[2017-02-05] MEDS: AMIODARONE 200 MG TAB PO SCH (09:00)
--- NOTE | 2017-02-05 10:19 | Progress Note ---
Subjective Date of Service: Feb 05, 2017. Subjective Pt evaluation today including: conversation w/ patient, physical exam, chart review, lab review pt seen in follow up, transferred from ICU. Remains on ctx. tolerating well. States overall he is feeling much better. does not wish to undergo renal biopsy/ WILLI. Repeat blood cultures negative. afebrile. no c/o sob, cp, n/v/d/abd pain. All remaining ros reviewed and are negative. Objective Vital Signs Date Time Temp Pulse Resp B/P (MAP) Pulse Ox O2 Delivery O2 Flow Rate FiO2 02/05/17 08:50 66 85/53 (64) 116/62 (80) 02/05/17 08:00 Oxymask 2.0 02/05/17 07:24 36.9 84 18 93/62 (72) 95 2.0 101/68 (79) 02/05/17 05:02 36.6 83 20 131/63 (85) 95 Oxymask 2.0 02/05/17 04:01 Oxymask 2.0 02/05/17 00:00 Oxymask 2.0 02/04/17 23:53 36.7 84 20 158/71 (100) 93 Oxymask 2.0 02/04/17 20:00 Oxymask 2.0 02/04/17 18:41 37.1 78 20 144/67 (92) 94 2.0 02/04/17 18:01 36.8 82 18 92 2.0 02/04/17 15:30 Oxymask 2.0 02/04/17 15:16 36.8 82 18 137/56 (83) 92 Oxymask 2.0 02/04/17 12:11 36.8 74 13 104/46 (65) 95 Oxymask 2.0 02/04/17 12:00 Oxymask 2.0 Physical Exam General Appearance: WD/WN, no apparent distress Eyes: normal inspection, EOMI Neck: supple Respiratory/Chest: lungs clear, normal breath sounds, no respiratory distress, + decreased breath sounds Cardiovascular: regular rate, rhythm, no edema Abdomen: soft Extremities: non-tender, normal inspection Neurologic/Psychiatric: alert, oriented x 3 Skin: normal color, warm/dry, no rash Laboratory Results Item Value Date Time Blood Culture - Final Complete 01/31/17 1344 Blood Group B Beta Strep Blood Culture - Final Complete 01/31/17 1354 Blood Group B Beta Strep Blood Culture - Preliminary Resulted 02/01/17 1005 Blood NO GROWTH TO DATE. Blood Culture - Preliminary Resulted 02/01/17 1013 Blood NO GROWTH TO DATE. Last 24 Hours Test 02/05/17 05:01 White Blood Count 5.64 K/uL Red Blood Count 3.91 M/uL Hemoglobin 10.9 g/dL Hematocrit 36.7 % Mean Corpuscular Volume 93.9 fL Mean Corpuscular Hemoglobin 27.9 pg Mean Corpuscular Hemoglobin Concent 29.7 g/dl RDW Standard Deviation 60.8 fL RDW Coefficient of Variation 17.7 % Platelet Count 121 K/uL Mean Platelet Volume 12.2 fL Prothrombin Time 23.8 SECONDS Prothromb Time International Ratio 2.2 Activated Partial Thromboplast Time 48.6 SECONDS Partial Thromboplastin Ratio 1.9 Assessment and Plan (1) Beta-hemolytic group B streptococcal sepsis Assessment & Plan: spoke with ICU, will narrow abx to ctx 2 g daily. Ideally wound benefit form IWLLI to exam ICD leads/valve but suspect he receive prolong course abx regardless, 6 weeks. he does note wish to continue with WILLI. repeat culture negative. follow repeat ct scan and follow family decisions regarding further care. will continue abx for now. Tentative stop date, 03/15. will need weekly cbc,cmp, esr while on abx. can follow with ID post d/c. ok for d/c from ID standpoint when otherwise stable (2) Fever
--- NOTE | 2017-02-05 12:59 | Clinical Documentation Query ---
ARIE Greer : Please Document Present on Admission Status for - Sepsis/Severe sepsis. ( X ) Sepsis/Severe sepsis due to pneumonia, POA ( ) Sepsis/Severe sepsis due to pneumonia, not POA Patient was admitted 01/30 for "Acute respiratory failure with hypoxia-secondary to CHF exacerbation". Not until 02/01 did "sepsis" appear in the record. Please clarify as clinically appropriate. Thank you. Thank You, Tyler Gomez, RN [phone]
[2017-02-05] MEDS: CEFTRIAXONE SOD INJ 2,000 MG in DEXTROSE 5% 50ML 50 ML IV SCH (13:19)
[2017-02-05] MEDS: WARFARIN SOD 5 MG TAB PO SCH (16:31)
--- NOTE | 2017-02-05 17:24 | Progress Note ---
Subjective Date of Service: Feb 05, 2017. Subjective Pt evaluation today including: conversation w/ patient, physical exam, chart review, lab review, review of studies, review of inpatient medication list Pt resting comfortably in bed No chest pain or shortness of breath No fevers or chills Review of Systems Constitutional: No fever, No chills, No sweats, No weight loss, No weakness Eyes: No worsening of vision, No eye pain, No redness, No discharge ENT: No hearing loss, No unusual epistaxis, No nasal symptoms, No sore throat Respiratory: No cough, No sputum, No wheezing, No shortness of breath, No dyspnea on exertion Cardiac: No chest pain, No orthopnea, No PND, No edema Abdomen: No pain, No nausea, No vomiting, No diarrhea, No constipation Musculoskeletal: No joint pain, No muscle pain, No swelling, No calf pain Male : No dysuria, No urinary frequency, No incontinence, No slowing stream Neurologic: No memory loss, No paralysis, No weakness, No numbness/tingling Psychiatric: No depression symptoms, No anhedonism, No anxiety, No insomnia Endo: No fatigue, No excessive thirst Skin: No rash, No itch Objective Vital Signs Date Time Temp Pulse Resp B/P (MAP) Pulse Ox O2 Delivery O2 Flow Rate FiO2 02/05/17 16:18 36.6 79 16 113/70 (84) 97 Mask 3.0 02/05/17 16:18 36.9 86 18 139/67 (91) 93 Oxymask 2.0 02/05/17 16:00 Oxymask 2.0 02/05/17 14:59 36.9 86 18 139/67 (91) 93 Oxymask 2.0 02/05/17 12:00 Oxymask 2.0 02/05/17 11:17 36.8 74 22 91/60 (70) 96 4.0 123/62 (82) 02/05/17 08:50 66 85/53 (64) 116/62 (80) 02/05/17 08:00 Oxymask 2.0 02/05/17 07:24 36.9 84 18 93/62 (72) 95 2.0 101/68 (79) 02/05/17 05:02 36.6 83 20 131/63 (85) 95 Oxymask 2.0 02/05/17 04:01 Oxymask 2.0 02/05/17 00:00 Oxymask 2.0 02/04/17 23:53 36.7 84 20 158/71 (100) 93 Oxymask 2.0 02/04/17 20:00 Oxymask 2.0 02/04/17 18:41 37.1 78 20 144/67 (92) 94 2.0 02/04/17 18:01 36.8 82 18 92 2.0 Physical Exam General Appearance: WD/WN, no apparent distress Eyes: normal inspection, PERRL, EOMI, sclerae normal Neck: supple, no adenopathy, thyroid normal, no JVD Respiratory/Chest: chest non-tender, lungs clear, normal breath sounds, no respiratory distress Cardiovascular: no edema, no gallop, no JVD, no murmur Abdomen: normal bowel sounds, non tender, soft, no organomegaly Neurologic/Psychiatric: no motor/sensory deficits, alert, normal mood/affect, oriented x 3 Laboratory Results Last 24 Hours Test 02/05/17 05:01 White Blood Count 5.64 K/uL Red Blood Count 3.91 M/uL Hemoglobin 10.9 g/dL Hematocrit 36.7 % Mean Corpuscular Volume 93.9 fL Mean Corpuscular Hemoglobin 27.9 pg Mean Corpuscular Hemoglobin Concent 29.7 g/dl RDW Standard Deviation 60.8 fL RDW Coefficient of Variation 17.7 % Platelet Count 121 K/uL Mean Platelet Volume 12.2 fL Prothrombin Time 23.8 SECONDS Prothromb Time International Ratio 2.2 Activated Partial Thromboplast Time 48.6 SECONDS Partial Thromboplastin Ratio 1.9 Assessment and Plan 76-year-old male presents to the emergency department with complaints of acute onset of bilateral lower extremity weakness which turns out to be more of a generalized weakness. 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 In the ER, he was found to be hypoxic with possible exacerbation of CHF and was initially treated with IV lasix. He then spiked a fever and became hypotensive after admission. He is admitted with severe sepsis, likely PNA as the source with productive cough, acute hypoxemic respiratory failure, abnormal CXR, and now with GPC bacteremia. Acute hypoxemic respiratory failure w/ hypoxia, secondary to PNA, sepsis POA, and acute on chronic systolic CHF-hypotension now resolved after treatment with dobutamine and continued abx for sepsis and bacteremia. Much improved overall. RIJ CVC placed 02/01 With severe sepsis, LLL PNA as the source with productive cough, hypoxia, abnormal CXR/CT, and now with Group B Strep bacteremia. ECHO without obvious vegetation, EF 35%. Has BOVINE AVR and pacer/ICD in place, aortic graft (indwelling foreign bodies) Ur cx negative Random cortisol normal; PCT elevated at 28 suggestive of bacterial infection consistent with GPC bacteremia- PCT trending down CT Chest showed: 1. Cardiomegaly and coronary artery calcifications 2. Presumed surgical repair of a descending thoracic aortic dissection 3. Trace bilateral pleural effusions 4. Elevation of left hemidiaphragm with left lower lobe atelectasis/consolidation 5. 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 Splenomegaly -Transfer from ICU to [facility], cont on rocephin at this time only -Appreciate ID recs, will likely need prolonged IV therapy x 6 weeks, PICC line placed 02/05/17 -Spoke to [employer], not wanting WILLI at this time, strep bacteremia noted - O2 protocol, wean as tolerated- does NOT wear O2 supplement at baseline -HOLD Bumex 2 mg BID - Sandoval placed- monitor I&Os and daily weights - Xopenex/ipratropium nebs q 6 hr for SOB/wheezing Thrombocytopenia- likely secondary to sepsis. 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 Harish 60k, no evidence of bleeding. Plts improving 121 today -Follow CBC Elevated troponin, Demand ischemia, likely secondary to hypoxia and possibly renal function- asymptomatic: - Telemetry monitoring as noted above - Trend cardiac enzymes- peaked trop at 0.095 - Follow EKG QAM and PRN w/ CP -continues on ASA but may need to hold given thrombocytopenia Lower and some upper extremity weakness/generalized, likely secondary to myopathy from sepsis-NOT Transverse myelitis: - Neurology consulted, appreciate recommendations to check Laboratory studies to include TSH, B-12, folate, free T4, Lyme antibody titers, aldolase -- Hold statin -- EMG and nerve conduction studies as an outpatient -- PT/OT - Elevated CPK- continue to trend but is now going down-check again in AM Paroxysmal A-fib/flutter, Bovine AVR, s/p ICD placement- follows w/ Dr. Richardson--> numerous cardiac surgeries, AVR x 3, sternal nonunion repair, Aortic dissection with grafting in 2000. No A-fib since [facility] 2010 as per Cardiology notes - hold Toprol, hold Bumex -continue Amiodarone 200 mg QAM, ASA 81 mg daily, warfarin SANTHOSH on CKD, stage III, baseline Cr. 1.2 and was 1.8 on admission-today 1.0 and is improved - Avoid nephrotoxic agents - Follow PRP -keep BP up Hypothyroidism: - Continue Synthroid 25 mcg daily - TSH/free T4 normal HTN- -holding all antihypertensives due to hypotension Dyslipidemia: Pravastatin 40 mg HS held due to elevated CK AAA with dissection- 6.[address] here--> pt does not desire surgery Renal mass-pt does not desire workup
--- NOTE | 2017-02-05 17:24 | DIAGNOSTIC IMAGING REPORT ---
CHEST ONE VIEW PORTABLE HISTORY: 76 years-old Male picc placement right arm COMPARISON: Chest radiograph 02/01/2017 TECHNIQUE: Portable upright AP view of the chest FINDINGS: There is been interval placement of a right-sided PICC with distal tip appearing to terminate in the region of the distal SVC just proximal to the superior cavoatrial junction. No postprocedural pneumothorax is identified. Right internal jugular central venous catheter and left pectoral pacer/defibrillator appear unchanged. Prior median sternotomy. Cardiac silhouette is again enlarged. There is atherosclerosis of the aorta. Right lung is clear. There is a persistent left-sided pleural effusion with left basilar consolidation. Surgical clips are seen within the region of the right axilla. The bones appear grossly intact with moderate to severe degenerative changes about the right shoulder. IMPRESSION: 1. Status post right-sided PICC placement with distal tip terminating within the region of the SVC. No postprocedural pneumothorax. 2. Unchanged position of right internal jugular central venous catheter. 3. Cardiomegaly with unchanged left pleural effusion and left basilar atelectasis or pneumonia. The above report was generated using voice recognition software. It may contain grammatical, syntax or spelling errors. Electronically signed by: Heath Taylor M.D. 02/05/2017 5:22 PM Dictated Date/Time: 02/05/2017 5:20 PM
[2017-02-06] VITALS (8 sets, daily range): BP systolic 90–127; BP diastolic 62–71; PULSE 71–87; TEMP 36.5–37.2; O2SAT 71–99
[2017-02-06] MEDS: LEVOTHYROXINE 25 MCG TAB PO SCH (06:00)
[2017-02-06 06:18] LABS: INR 2.8 (0.9-1.1); PROTHROMBIN TIME (PATIENT) 31.6 SECONDS (9.0-12.0)
[2017-02-06] MEDS: ASPIRIN 81 MG ECTAB PO SCH (07:42)
[2017-02-06] MEDS: FAMOTIDINE 20 MG TAB PO SCH (07:42)
[2017-02-06] MEDS: AMIODARONE 200 MG TAB PO SCH (07:42)
[2017-02-06 12:54] LABS: PARTIAL THROMBOPLASTIN RATIO 2.6
[2017-02-06] MEDS: CEFTRIAXONE SOD INJ 2,000 MG in DEXTROSE 5% 50ML 50 ML IV SCH (14:04)
[2017-02-06] MEDS: HEPARIN 25,000 UNIT/500ML D5W 500 ML IV PRN (14:17)
--- NOTE | 2017-02-06 15:16 | Progress Note ---
Subjective Date of Service: Feb 06, 2017. Subjective no overnight events, repeat blood cultures negative. tolerating abx. no new labs , remains afebrile. Objective Vital Signs Date Time Temp Pulse Resp B/P (MAP) Pulse Ox O2 Delivery O2 Flow Rate FiO2 02/06/17 12:00 Oxymask 2.0 02/06/17 11:28 36.8 72 18 94/62 (73) 97 Room Air 02/06/17 08:00 Oxymask 2.0 02/06/17 07:21 36.8 83 20 100/67 (78) 92 Oxymask 3.0 02/06/17 04:00 36.8 82 20 103/69 (80) 97 3.0 02/06/17 04:00 Oxymask 02/06/17 00:00 Oxymask 02/06/17 00:00 37.2 87 20 104/70 (81) 92 3.0 02/05/17 20:00 Oxymask 02/05/17 19:53 36.7 81 24 110/75 (87) 97 Mask 3.0 02/05/17 16:18 36.6 79 16 113/70 (84) 97 Mask 3.0 02/05/17 16:18 36.9 86 18 139/67 (91) 93 Oxymask 2.0 02/05/17 16:00 Oxymask 2.0 Laboratory Results Item Value Date Time Blood Culture - Preliminary Resulted 02/01/17 1013 Blood NO GROWTH TO DATE. Blood Culture - Preliminary Resulted 02/01/17 1005 Blood NO GROWTH TO DATE. Blood Culture - Final Complete 01/31/17 1354 Blood Group B Beta Strep Blood Culture - Final Complete 01/31/17 1344 Blood Group B Beta Strep Last 24 Hours Test 02/06/17 05:28 02/06/17 12:21 Prothrombin Time 31.6 SECONDS Prothromb Time International Ratio 2.8 Activated Partial Thromboplast Time 79.0 SECONDS 67.6 SECONDS Partial Thromboplastin Ratio 3.0 2.6 Assessment and Plan (1) Beta-hemolytic group B streptococcal sepsis Assessment & Plan: spoke with ICU, will narrow abx to ctx 2 g daily. Ideally wound benefit form WILLI to exam ICD leads/valve but suspect he receive prolong course abx regardless, 6 weeks. he does note wish to continue with WILLI. repeat culture negative. follow repeat ct scan and follow family decisions regarding further care. will continue abx for now. Tentative stop date, 03/15. will need weekly cbc,cmp, esr while on abx. can follow with ID post d/c. ok for d/c from ID standpoint when otherwise stable (2) Fever
[2017-02-06] MEDS: WARFARIN SOD 5 MG TAB PO SCH (16:04)
[2017-02-07] VITALS (14 sets, daily range): BP systolic 91–149; BP diastolic 65–81; PULSE 56–86; TEMP 36.5–37; O2SAT 91–97
[2017-02-07 05:33] LABS: MEAN CELL VOLUME 95.6 fL (80-100); MEAN PLATELET VOLUME 10.5 fL (7.4-10.4); PLATELET COUNT 137 K/uL (130-400); RED BLOOD COUNT 3.66 M/uL (4.7-6.1); WHITE BLOOD COUNT 5.94 K/uL (4.8-10.8)
[2017-02-07 05:37] LABS: MEAN CORPUSCULAR HGB CONC 30.3 g/dl (32-36)
[2017-02-07 05:50] LABS: PARTIAL THROMBOPLASTIN RATIO 3.2
[2017-02-07] MEDS: HEPARIN 25,000 UNIT/500ML D5W 500 ML IV PRN (06:38)
[2017-02-07] MEDS: LEVOTHYROXINE 25 MCG TAB PO SCH (06:38)
[2017-02-07] MEDS: FAMOTIDINE 20 MG TAB PO SCH (07:53)
[2017-02-07] MEDS: AMIODARONE 200 MG TAB PO SCH (07:53)
[2017-02-07] MEDS: ASPIRIN 81 MG ECTAB PO SCH (07:54)
--- NOTE | 2017-02-07 10:18 | Progress Note ---
Subjective Date of Service: Feb 07, 2017. Subjective Pt evaluation today including: conversation w/ patient, physical exam, chart review, lab review pt oob to chair, asking to go home. feels much better. no f/c. tolerating abx. repeat cultures are negative and final .L IJ TLC remains in place. no cp, sob, cough, n/v/d/abd pain. all remaining ros reviewed and are negative. Objective Vital Signs Date Time Temp Pulse Resp B/P (MAP) Pulse Ox O2 Delivery O2 Flow Rate FiO2 02/07/17 08:00 Oxymask 2.0 02/07/17 07:19 36.8 83 20 100/65 (77) 97 Oxymask 3.0 02/07/17 05:05 37.0 81 20 108/72 (84) 96 2.0 02/07/17 04:00 Oxymask 2.0 02/07/17 00:00 Oxymask 2.0 02/06/17 23:44 36.5 82 16 103/70 (81) 99 Mask 2.0 02/06/17 20:03 36.9 75 18 90/63 (72) 97 Oxymask 2.0 02/06/17 20:00 Oxymask 2.0 02/06/17 16:15 36.7 77 20 92/64 (73) 96 Oxymask 3.0 02/06/17 16:14 36.8 72 18 94/62 (73) 97 Oxymask 2.0 02/06/17 16:00 Oxymask 2.0 02/06/17 12:00 Oxymask 2.0 02/06/17 11:28 36.8 72 18 94/62 (73) 97 Room Air Physical Exam Eyes: normal inspection, EOMI Neck: supple Respiratory/Chest: normal breath sounds, no respiratory distress Cardiovascular: no edema Abdomen: soft Extremities: normal inspection, no pedal edema Neurologic/Psychiatric: alert, oriented x 3 Skin: normal color, warm/dry, no rash Comments: L IJ intact Laboratory Results Item Value Date Time Blood Culture - Final Complete 01/31/17 1344 Blood Group B Beta Strep Blood Culture - Final Complete 01/31/17 1354 Blood Group B Beta Strep Blood Culture - Final Complete 02/01/17 1005 Blood NO GROWTH Blood Culture - Final Complete 02/01/17 1013 Blood NO GROWTH Last 24 Hours Test 02/06/17 12:21 02/07/17 05:05 Activated Partial Thromboplast Time 67.6 SECONDS 83.0 SECONDS Partial Thromboplastin Ratio 2.6 3.2 White Blood Count 5.94 K/uL Red Blood Count 3.66 M/uL Hemoglobin 10.6 g/dL Hematocrit 35.0 % Mean Corpuscular Volume 95.6 fL Mean Corpuscular Hemoglobin 29.0 pg Mean Corpuscular Hemoglobin Concent 30.3 g/dl RDW Standard Deviation 62.5 fL RDW Coefficient of Variation 17.9 % Platelet Count 137 K/uL Mean Platelet Volume 10.5 fL Assessment and Plan (1) Beta-hemolytic group B streptococcal sepsis Assessment & Plan: spoke with ICU, will narrow abx to ctx 2 g daily. Ideally wound benefit form WILLI to exam ICD leads/valve but suspect he receive prolong course abx regardless, 6 weeks. he does note wish to continue with WILLI. repeat culture negative. follow repeat ct scan and follow family decisions regarding further care. will continue abx for now. Tentative stop date, 03/15. will need weekly cbc,cmp, esr while on abx. can follow with ID post d/c. ok for picc, repeat cutlure negative and final. ok for d/c from ID standpoint when otherwise stable (2) Fever
[2017-02-07 12:48] LABS: PARTIAL THROMBOPLASTIN RATIO 2.9; PROTHROMBIN TIME (PATIENT) 48.2 SECONDS (9.0-12.0)
[2017-02-07 12:50] LABS: INR 4.2 (0.9-1.1)
[2017-02-07] MEDS: CEFTRIAXONE SOD INJ 2,000 MG in DEXTROSE 5% 50ML 50 ML IV SCH (13:46)
[2017-02-07] MEDS ORDERED: XPNINS1255 INH (15:10)
[2017-02-07] MEDS ORDERED: MCTP EXT (15:10)
[2017-02-07] MEDS ORDERED: CEFT1INJ57 IV ×2 (15:10→17:04)
[2017-02-07] MEDS ORDERED: ATRINS INH (15:10)
--- NOTE | 2017-02-07 15:17 | Discharge Instructions ---
Discharge Instructions Date of Service Feb 07, 2017. Admission Reason for Admission: Lower Extremity Weakness Discharge Discharge Diagnosis / Problem: Sepsis due to Pneumonia Discharge Goals Goal(s): Decrease discomfort, Improve function, Increase independence Activity Recommendations Activity Level: Assistance Required Therapies: Physical Therapy, Occupational Therapy . Additional Information Patient informed of condition: Yes Advance Directives: Yes DNR: Yes Level of Care: Acute Rehab Communicable Disease: Yes Prognosis: Improving Sandoval Catheter: No Instructions / Follow-Up Instructions / Follow-Up Call 911 and go to the Emergency Room if: * You have tightness or pain in your chest that does not go away with rest or Nitroglycerin * You are very short of breath even with rest Call your doctor if any of the following symptoms or problems start or get worse: * Shortness of breath or difficulty breathing * Wake up at night short of breath * Chest pain * Cough * Swelling of your hands, fee, or legs * More fatigued or tired with your normal activity * Palpitations - sudden fast heart beats WEIGHT * Weigh yourself every morning after using the bathroom. * Use the same scale. * Wear the same amount of clothing. * Write your weight down on your chart. * Call your doctor if you gain more than 2-3 pounds in 1-2 days. MEDICATIONS * Use this discharge instruction sheet for instructions. * Take your medications at the time your doctor ordered. * Do not skip a dose of your medicines. * If you miss a dose of medicine, take as soon as possible, but DO NOT DOUBLE A DOSE. * Read your medicine information when you get home. * Know all of the side effects of your medicine. * Call your doctor's office if you have any side effects. * Be sure all of your doctors know what medicine and herbs you take (including cold, flu, and herbal medicine). * Pain Medicine: If you do not get relief from your pain, please call your doctor for help. Take the following with you to your follow-up doctor appointments: * Weight Chart * Medication List * List of questions Do not drink excessive alcohol, beer or wine. Current Hospital Diet Patient's current hospital diet: Low Sodium Diet (2gm Na), AHA Diet (Heart Healthy) Discharge Diet Recommended Diet: AHA Diet (Heart Healthy), Low Sodium Diet (2gm Na) Pending Studies Studies pending at discharge: no Physician Orders On Transfer Additional Orders: PT/INR on 02/08 Coumadin held on 02/07 for INR 4.5 Can be resumed if INR at goal of 2-3 as per [facility] physician's discretion Pt's home dose as listed on d/c instruction, but had been on 5mg coumadin after home dosing was held temporarily. Should likely resume home dosing once INR is 2-3. Medical Emergencies . Who to Call and When: Medical Emergencies: If at any time you feel your situation is an emergency, please call 911 immediately. . Non-Emergent Contact Non-Emergency issues call your: Primary Care Provider . . "Provider Documentation" section prepared by Yoli Graves. . Core Measure Problem Core Measures: None
--- NOTE | 2017-02-07 15:21 | Discharge Summary ---
Discharge Summary Date of Service Feb 07, 2017. Discharge Summary Admission Date: Jan 30, 2017 at 19:13 Discharge Date: Feb 07, 2017 Discharge Disposition: Rehab Principal Diagnosis: Sepsis due to PNA Problems/Secondary Diagnoses: Renal mass--declining work-up AAA 6.1cm--declining intervention Transverse myelitis Aortic dissection s/p repair AVR ICD Aflutter/afib CHF with EF 45% Hypothyroid BPH CKD III baseline cr 1.2 Immunizations: Have You Had Influenza Vaccine: No History of Tetanus Vaccine?: Yes History of Pneumococcal: Yes Pneumococcal Date: Apr 08, 2002 History of Hepatitis B Vaccine: No Procedures: RIJ placed 02/01, d/c'd 02/07 PICC placed 02/05 Consultations: ID Cardiology Neurology Urology Medication Reconciliation New Medications: Ceftriaxone Sod (Rocephin) 1 Gm Inj 2 GM IV DAILY for 42 Days, VIAL Ipratropium [place] (Ipratropium [place]) 0.5 Mg/2.5 Ml Nebu 0.5 MG INH Q6R PRN for Shortness of Breath for 30 Days Levalbuterol (Levalbuterol) 1.25 Mg/0.5 Ml Nebu 1.25 MG INH Q6R PRN for Shortness of Breath for 30 Days Miconazole Nitrate (Desenex Shake Powder) 43 Appln/43 Gm Powd 1 APPLN EXT UD PRN for Affected Skin Folds for 30 Days Continued Medications: Acetaminophen (Tylenol) 325 Mg Tab 650 MG PO Q4HR PRN Amiodarone HCl (Amiodarone HCl) 200 Mg Tab 200 MG PO QAM, TAB Aspirin (Aspirin) 81 Mg Chw 81 MG PO DAILY, TAB 3 Refills Bumetanide (Bumex) 2 Mg Tab 2 MG PO BID Docusate Sodium (Docusate Sodium) 100 Mg Cap 100 MG PO BID Famotidine (Famotidine) 20 Mg Tab 20 MG PO DAILY Fish Oil (Bagley-3) 1 Ea Cap 1 CAP PO DAILY, CAP Lecithin (Lecithin) 1,200 Mg Cap 1200 MG DAILY Levothyroxine Sodium (Levothyroxine Sodium) 25 Mcg Tab 25 MCG PO QAM, #30 Metoprolol Succinate (Toprol Xl) 100 Mg Tab 100 MG PO DAILY, TAB Multivitamin (Multivitamin) Tab 1 TAB PO DAILY Nitroglycerin (Nitrostat) 0.4 Mg Tab 0.4 MG UT PRN, 0 Refills Potassium Chloride (Potassium Chloride Er) 10 Meq Tab 10 MEQ BID Pravastatin Sodium (Pravastatin Sodium) 40 Mg Tab 40 MG HS Ramipril (Ramipril) 5 Mg Cap 5 MG PO DAILY, CAP 3 Refills Tamsulosin HCl (Tamsulosin HCl) 0.4 Mg Cap 0.4 MG PO HS Discontinued Medications: Warfarin Sod (Coumadin) 2.5 Mg Tab 1.25 MG PO MWF, TAB Warfarin Sod (Coumadin) 2.5 Mg Tab 2.5 MG PO DIRECTED, TAB TAKE 2.5MG ON Friday Discharge Exam Pt is feeling well. Tolerating PO. Denies SOB, chest pain. States he still feels some LE weakness, but improving. No longer with LE pain. Has LE swelling at baseline and this is his usual swelling. Pt denies fever, abd pain, n/v/c/d. RIJ was d/c'd and monitoring prior to hospital discharge. While there was usual bleeding noted initially, there has been no new bleeding noted. Physical Exam: General Appearance: WD/WN, no apparent distress Respiratory/Chest: normal breath sounds, no respiratory distress Cardiovascular: regular rate, rhythm, normal peripheral pulses Abdomen / GI: non tender, soft Extremities: no calf tenderness, + pedal edema (trace pitting) Neurologic/Psychiatric: alert, normal mood/affect, oriented x 3 Skin: normal color, warm/dry Hospital Course 76-year-old male presents to the emergency department with complaints of acute onset of bilateral lower extremity weakness which turns out to be more of a generalized weakness. 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 In the ER, he was found to be hypoxic with possible exacerbation of CHF and was initially treated with IV lasix. He then spiked a fever and became hypotensive after admission. He is admitted with severe sepsis, likely PNA as the source with productive cough, acute hypoxemic respiratory failure, abnormal CXR, and now with GPC bacteremia. Acute hypoxemic respiratory failure w/ hypoxia, secondary to PNA, sepsis POA, and acute on chronic systolic CHF-hypotension now resolved after treatment with dobutamine and continued abx for sepsis and bacteremia. Much improved overall. RIJ CVC placed 02/01 and d/c'd 02/07 With severe sepsis, LLL PNA as the source with productive cough, hypoxia, abnormal CXR/CT, and now with Group B Strep bacteremia. ECHO without obvious vegetation, EF 35%. Has BOVINE AVR and pacer/ICD in place, aortic graft (indwelling foreign bodies) Ur cx negative Random cortisol normal; PCT elevated at 28 suggestive of bacterial infection consistent with GPC bacteremia- PCT trending down CT Chest showed: 1. Cardiomegaly and coronary artery calcifications 2. Presumed surgical repair of a descending thoracic aortic dissection 3. Trace bilateral pleural effusions 4. Elevation of left hemidiaphragm with left lower lobe atelectasis/consolidation 5. 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 Splenomegaly -Transfer from ICU to [facility], cont on rocephin at this time only -Appreciate ID recs, will need prolonged IV therapy x 6 weeks, PICC line placed 02/05/17 and ceftriaxone started 02/06 -Pt is not wanting WILLI at this time, strep bacteremia noted and this was discussed with family by several providers. May need to revisit in the future - O2 protocol, wean as tolerated at [facility]- does NOT wear O2 supplement at baseline -resume Bumex 2 mg BID - Xopenex/ipratropium nebs q 6 hr PRN for SOB/wheezing Thrombocytopenia- likely secondary to sepsis. 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 Harish 60k, no evidence of bleeding. Plts improving 121 today -Follow CBC Elevated troponin, Demand ischemia, likely secondary to hypoxia and possibly renal function- asymptomatic: - Telemetry monitoring as noted above - Trend cardiac enzymes- peaked trop at 0.095 - Follow EKG QAM and PRN w/ CP -continues on ASA but may need to hold given thrombocytopenia Lower and some upper extremity weakness/generalized, likely secondary to myopathy from sepsis-NOT Transverse myelitis: - Neurology consulted, appreciate recommendations to check Laboratory studies to include TSH, B-12, folate, free T4, Lyme antibody titers, aldolase -- Hold statin -- EMG and nerve conduction studies as an outpatient if ongoing sx -- PT/OT - Elevated CPK- continue to trend but is now going down-check again in AM Paroxysmal A-fib/flutter, Bovine AVR, s/p ICD placement- follows w/ Dr. Richardson--> numerous cardiac surgeries, AVR x 3, sternal nonunion repair, Aortic dissection with grafting in 2000. No A-fib since [facility] 2010 as per Cardiology notes - resume Toprol and Bumex -continue Amiodarone 200 mg QAM, ASA 81 mg daily, warfarin Coumadin had been held early in admission and pt was on a heparin drip. INR is slightly elevated on d/c after having higher than home dosing during admission to resume appropriate INR after holding and will need checked on 02/08. If WNL, can resume at prior home dosing. SANTHOSH on CKD, stage III, baseline Cr. 1.2 and was 1.8 on admission-today 1.0 and is improved - Follow PRP Hypothyroidism: - Continue Synthroid 25 mcg daily - TSH/free T4 normal HTN- -resume home meds and with lower BP, monitor Dyslipidemia: Pravastatin 40 mg HS held due to elevated CK AAA with dissection- 6.[address] here--> pt does not desire surgery Renal mass-pt does not desire workup Total Time Spent: Greater than 30 minutes This includes examination of the patient, discharge planning, medication reconciliation, and communication with other providers. Discharge Instructions Please refer to the electronic Patient Visit Report (Discharge Instructions) for additional information. Follow-Up Neurology for EMG if ongoing issues with weakness as needed ENT for hoarseness Cardiology for WILLI if/when agreeable Additional [facility] CenterRoder[facility]; Byron Vizcaino M.D.
[2017-02-07] MEDS: MAGNESIUM HYDROXIDE SUSP 30 ML UDC PO PRN (16:14)
--- NOTE | 2017-02-07 17:47 | Progress Note ---
Subjective Date of Service: Feb 06, 2017. Subjective Pt evaluation today including: conversation w/ patient, conversation w/ family , physical exam, chart review, lab review, review of studies, review of inpatient medication list Pt resting comfortably in bed Denies any complaints No SOB or productive cough No other complaints at this time Review of Systems Constitutional: No fever, No chills, No sweats, No weight loss Eyes: No worsening of vision, No eye pain, No redness, No discharge ENT: No hearing loss, No unusual epistaxis, No nasal symptoms, No sore throat Respiratory: No cough, No sputum, No wheezing, No shortness of breath Cardiac: No chest pain, No orthopnea, No PND, No edema Abdomen: No see HPI, No pain, No nausea, No vomiting, No diarrhea, No constipation, No GI bleeding, No problem reported Male : No dysuria, No urinary frequency, No incontinence, No slowing stream Neurologic: No memory loss, No paralysis, No weakness, No numbness/tingling Psychiatric: No depression symptoms, No anhedonism, No anxiety Endo: + excessive thirst, No fatigue Skin: No rash, No itch, No color change, No bleeding Objective Vital Signs Date Time Temp Pulse Resp B/P (MAP) Pulse Ox O2 Delivery O2 Flow Rate FiO2 02/07/17 16:19 36.8 83 18 91/65 (74) 95 Room Air 02/07/17 15:53 36.6 77 18 95 02/07/17 13:20 36.6 77 18 122/79 (93) 95 Oxymask 3.0 02/07/17 13:11 36.5 73 18 117/78 (91) 96 Oxymask 3.0 02/07/17 12:50 36.7 79 18 124/81 (95) 91 Oxymask 3.0 02/07/17 12:35 77 18 124/80 (95) 02/07/17 12:20 71 18 116/80 (92) 02/07/17 12:05 73 18 116/80 (92) 02/07/17 12:00 Oxymask 2.0 02/07/17 11:51 73 18 149/79 (102) 02/07/17 11:50 73 18 149/79 (102) 02/07/17 11:45 86 18 135/73 (93) 02/07/17 11:45 56 18 135/73 (93) 02/07/17 11:12 36.5 74 18 103/72 (82) 91 Room Air 02/07/17 08:00 Oxymask 2.0 02/07/17 07:19 36.8 83 20 100/65 (77) 97 Oxymask 3.0 02/07/17 05:05 37.0 81 20 108/72 (84) 96 2.0 02/07/17 04:00 Oxymask 2.0 02/07/17 00:00 Oxymask 2.0 02/06/17 23:44 36.5 82 16 103/70 (81) 99 Mask 2.0 02/06/17 20:03 36.9 75 18 90/63 (72) 97 Oxymask 2.0 02/06/17 20:00 Oxymask 2.0 Physical Exam General Appearance: WD/WN, no apparent distress Eyes: normal inspection, PERRL, EOMI, sclerae normal Neck: supple, no adenopathy, thyroid normal, no JVD Respiratory/Chest: chest non-tender, lungs clear, normal breath sounds, no respiratory distress Cardiovascular: regular rate, rhythm, no edema, no gallop, no JVD Abdomen: normal bowel sounds, non tender, soft, no organomegaly Neurologic/Psychiatric: no motor/sensory deficits, alert, normal mood/affect, oriented x 3 Skin: normal color, warm/dry, no rash Lymphatic: no adenopathy Laboratory Results Last 24 Hours Test 02/07/17 05:05 02/07/17 12:18 White Blood Count 5.94 K/uL Red Blood Count 3.66 M/uL Hemoglobin 10.6 g/dL Hematocrit 35.0 % Mean Corpuscular Volume 95.6 fL Mean Corpuscular Hemoglobin 29.0 pg Mean Corpuscular Hemoglobin Concent 30.3 g/dl RDW Standard Deviation 62.5 fL RDW Coefficient of Variation 17.9 % Platelet Count 137 K/uL Mean Platelet Volume 10.5 fL Activated Partial Thromboplast Time 83.0 SECONDS 74.8 SECONDS Partial Thromboplastin Ratio 3.2 2.9 Prothrombin Time 48.2 SECONDS Prothromb Time International Ratio 4.2 Assessment and Plan 76-year-old male presents to the emergency department with complaints of acute onset of bilateral lower extremity weakness which turns out to be more of a generalized weakness. 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 In the ER, he was found to be hypoxic with possible exacerbation of CHF and was initially treated with IV lasix. He then spiked a fever and became hypotensive after admission. He is admitted with severe sepsis, likely PNA as the source with productive cough, acute hypoxemic respiratory failure, abnormal CXR, and now with GPC bacteremia. Acute hypoxemic respiratory failure w/ hypoxia, secondary to PNA, sepsis POA, and acute on chronic systolic CHF-hypotension now resolved after treatment with dobutamine and continued abx for sepsis and bacteremia. Much improved overall. RIJ CVC placed 02/01 With severe sepsis, LLL PNA as the source with productive cough, hypoxia, abnormal CXR/CT, and now with Group B Strep bacteremia. ECHO without obvious vegetation, EF 35%. Has BOVINE AVR and pacer/ICD in place, aortic graft (indwelling foreign bodies) Ur cx negative Random cortisol normal; PCT elevated at 28 suggestive of bacterial infection consistent with GPC bacteremia- PCT trending down CT Chest showed: 1. Cardiomegaly and coronary artery calcifications 2. Presumed surgical repair of a descending thoracic aortic dissection 3. Trace bilateral pleural effusions 4. Elevation of left hemidiaphragm with left lower lobe atelectasis/consolidation 5. 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 Splenomegaly -Transfer from ICU to [facility], cont on rocephin at this time only -Appreciate ID recs, will likely need prolonged IV therapy x 6 weeks, PICC line placed 02/05/17 -Spoke to [facility], not wanting WILLI at this time, strep bacteremia noted - O2 protocol, wean as tolerated- does NOT wear O2 supplement at baseline -HOLD Bumex 2 mg BID - Sandoval placed- monitor I&Os and daily weights - Xopenex/ipratropium nebs q 6 hr for SOB/wheezing Thrombocytopenia- likely secondary to sepsis. 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 Harish 60k, no evidence of bleeding. Plts improving 121 today -Follow CBC Elevated troponin, Demand ischemia, likely secondary to hypoxia and possibly renal function- asymptomatic: - Telemetry monitoring as noted above - Trend cardiac enzymes- peaked trop at 0.095 - Follow EKG QAM and PRN w/ CP -continues on ASA but may need to hold given thrombocytopenia Lower and some upper extremity weakness/generalized, likely secondary to myopathy from sepsis-NOT Transverse myelitis: - Neurology consulted, appreciate recommendations to check Laboratory studies to include TSH, B-12, folate, free T4, Lyme antibody titers, aldolase -- Hold statin -- EMG and nerve conduction studies as an outpatient -- PT/OT - Elevated CPK- continue to trend but is now going down-check again in AM Paroxysmal A-fib/flutter, Bovine AVR, s/p ICD placement- follows w/ Dr. Richardson--> numerous cardiac surgeries, AVR x 3, sternal nonunion repair, Aortic dissection with grafting in 2000. No A-fib since [facility] 2010 as per Cardiology notes - hold Toprol, hold Bumex -continue Amiodarone 200 mg QAM, ASA 81 mg daily, warfarin SANTHOSH on CKD, stage III, baseline Cr. 1.2 and was 1.8 on admission-today 1.0 and is improved - Avoid nephrotoxic agents - Follow PRP -keep BP up Hypothyroidism: - Continue Synthroid 25 mcg daily - TSH/free T4 normal HTN- -holding all antihypertensives due to hypotension Dyslipidemia: Pravastatin 40 mg HS held due to elevated CK AAA with dissection- 6.[address] here--> pt does not desire surgery Renal mass-pt does not desire workup
[2017-02-12 15:31] LABS: ANAPLASMA PHAGOCYTOPHIL IGG <1:64 (<1:64); ANAPLASMA PHAGOCYTOPHIL IGM <1:20 (<1:20)
== END 2017-02-07 17:20 | DRG 871 ==
LOC: C.EDB 14:56 → C.2T 19:13 → ENRESERV 19:36 → C.MSICU 02-01 18:28 → ENRESERV 02-04 18:18 → C.MED 02-04 18:38
PROVIDERS: ADMIT Hospitalist; ATTEND Hospitalist
PROC: 03HY32Z Insertion of Monitoring Device into Upper Artery, Percutaneous Approach (ICD-10-PCS; principal; 2017-02-01)
PROC: 05HB33Z Insertion of Infusion Device into Right Basilic Vein, Percutaneous Approach (ICD-10-PCS; 2017-02-05)
DX: A41.9 Sepsis, unspecified organism (principal); J96.01 Acute respiratory failure with hypoxia; I50.23 Acute on chronic systolic (congestive) heart failure; J18.9 Pneumonia, unspecified organism; R65.21 Severe sepsis with septic shock; I13.0 Hypertensive heart and chronic kidney disease with heart failure and stage 1 through stage 4 chronic kidney disease, or unspecified chronic kidney disease; J44.1 Chronic obstructive pulmonary disease with (acute) exacerbation; G37.3 Acute transverse myelitis in demyelinating disease of central nervous system; I24.8 Other forms of acute ischemic heart disease; I48.92 Unspecified atrial flutter; N17.9 Acute kidney failure, unspecified; B95.1 Streptococcus, group B, as the cause of diseases classified elsewhere; G72.9 Myopathy, unspecified; D69.6 Thrombocytopenia, unspecified; I48.91 Unspecified atrial fibrillation; N18.3 Chronic kidney disease, stage 3 (moderate); E03.9 Hypothyroidism, unspecified; E78.5 Hyperlipidemia, unspecified; N40.0 Benign prostatic hyperplasia without lower urinary tract symptoms; I71.4 Abdominal aortic aneurysm, without rupture; N28.89 Other specified disorders of kidney and ureter; R16.1 Splenomegaly, not elsewhere classified; G25.0 Essential tremor; F01.50 Vascular dementia, unspecified severity, without behavioral disturbance, psychotic disturbance, mood disturbance, and anxiety; Z66 Do not resuscitate; Z95.810 Presence of automatic (implantable) cardiac defibrillator; Z95.4 Presence of other heart-valve replacement; Z87.891 Personal history of nicotine dependence; Z79.01 Long term (current) use of anticoagulants; Z79.82 Long term (current) use of aspirin; Z79.899 Other long term (current) drug therapy

== ENCOUNTER → 2017-02-24 | Outpatient (CLI) | payer OTHER ==
[~2017-02-24] MED LIST changes: -ALT5 PO; -ASPCH81 PO; +ASPI81CH2 PO; +ATRINS INH; +BUME1TAB45 PO; +CEFT1INJ57 IV; -CLC100 PO; +CLC100X PO; -CMD/25 PO; +CRD200 PO; +FAMO1TAB47 PO; +LEVO25TA5 PO; -LEVO88TA3 PO; +MCTP EXT; +RAMI5CAP PO; +XPNINS1255 INH; -[UNRECOGNIZED DRUG - CODE] PO; -[UNRECOGNIZED DRUG - OTHER] PO; -[UNRECOGNIZED DRUG - OTHER] PO
[2017-02-24 12:31] LABS: ALT/SGPT 32 U/L (12-78); AST/SGOT 27 U/L (15-37); BLOOD UREA NITROGEN 14 mg/dl (7-18); BUN/CREATININE RATIO 11.8 (10-20); CALCIUM 8.2 mg/dl (8.5-10.1); CARBON DIOXIDE 27 mmol/L (21-32); CHLORIDE 108 mmol/L (98-107); CHOLESTEROL 115 mg/dl (0-200); GLUCOSE 91 mg/dl (70-99); MAGNESIUM 3.1 mg/dl (1.8-2.4); POTASSIUM 4.6 mmol/L (3.5-5.1); SODIUM 142 mmol/L (136-145); TRIGLYCERIDES 105 mg/dl (0-150); VERY LOW DENSITY LIPOPROT CALC 21 mg/dl
[2017-02-24 12:36] LABS: ALB/GLOB RATIO 0.8 (0.9-2); ALKALINE PHOSPHATASE 57 U/L (45-117); HDL CHOLESTEROL 38 mg/dl; LDL CHOLESTEROL CALCULATED 56 mg/dl
[2017-02-24 12:37] LABS: HEMATOCRIT 36.3 % (42-52); MEAN CELL VOLUME 93.8 fL (80-100); MEAN CORPUSCULAR HEMOGLOBIN 28.4 pg (25-34); MEAN CORPUSCULAR HGB CONC 30.3 g/dl (32-36); MEAN PLATELET VOLUME 10.6 fL (7.4-10.4); PLATELET COUNT 133 K/uL (130-400); RED BLOOD COUNT 3.87 M/uL (4.7-6.1); WHITE BLOOD COUNT 5.44 K/uL (4.8-10.8)
== END | disposition home or self-care (01) ==
LOC: C.LABBFT 09:49
PROVIDERS: ATTEND Internal Medicine Cardiovascular Disease
DX: N40.0 Benign prostatic hyperplasia without lower urinary tract symptoms (principal); I10 Essential (primary) hypertension

== ENCOUNTER → 2017-05-27 | Outpatient (CLI) | payer OTHER ==
[~2017-05-27] MED LIST changes: -ACET-1311 PO; +ASCA500 PO; -ATRINS INH; -BUME1TAB45 PO; +BUME2TAB3 PO; -CEFT1INJ57 IV; -MCTP EXT; +METO-479 PO; -METO1TAB68 PO; +WARF2.5T8 PO; -XPNINS1255 INH
[2017-05-27 14:51] LABS: INR 1.5 (0.9-1.1); PROTHROMBIN TIME (PATIENT) 16.6 SECONDS (9.0-12.0)
== END | disposition home or self-care (01) ==
LOC: C.LAB1850 13:17
PROVIDERS: ATTEND Internal Medicine Cardiovascular Disease
DX: E05.90 Thyrotoxicosis, unspecified without thyrotoxic crisis or storm (principal); I48.91 Unspecified atrial fibrillation

== ENCOUNTER 2017-06-24 12:16 | Inpatient (IN) | payer OTHER ==
[~2017-06-24] VITALS: Ht 172.7 cm; Wt 96.3 kg
[2017-06-24] MEDS ORDERED: WARF2.5T8 PO (13:51)
--- NOTE | 2017-06-24 13:59 | DIAGNOSTIC IMAGING REPORT ---
L PELVIS/UNILATERAL HIP 2-3VIEWS CLINICAL HISTORY: FALL, L HIP PAIN trauma. Pain. COMPARISON: None. DISCUSSION: Somewhat limited study as the patient could not tolerate positioning easily. Probable nondisplaced fracture subcapital femoral neck region. No evidence for acetabular protrusion. No evidence of dislocation. Moderate degenerative change right hip. There is no evidence for soft tissue swelling. IMPRESSION: 1. Fracture left femoral neck region extending to the subcapital region left hip. 2. No evidence of dislocation. 3. No evidence for acetabular protrusion. The above report was generated using voice recognition software. It may contain grammatical, syntax or spelling errors. Electronically signed by: Jayant Vazquez M.D. 06/24/2017 1:57 PM Dictated Date/Time: 06/24/2017 1:56 PM
--- NOTE | 2017-06-24 14:11 | EMERGENCY ROOM VISIT NOTE ---
ED Visit Note First contact with patient: 13:18 The patient was seen and examined with Chanelle Christiansen PA-C. I agree with the history, physical and findings. Please see the note for disposition and details.
--- NOTE | 2017-06-24 14:16 | DIAGNOSTIC IMAGING REPORT ---
CHEST ONE VIEW PORTABLE CLINICAL HISTORY: preop preoperative evaluation COMPARISON STUDY: 05/12/2017 FINDINGS: Mild chronic cardiomegaly. Implantable cardiac pacemaker/defibrillator with leads in good position. Lungs are considered clear. Chronic elevation left hemidiaphragm. Chronic atelectatic change left base. IMPRESSION: Chronic and postoperative change. No acute process. The above report was generated using voice recognition software. It may contain grammatical, syntax or spelling errors. Electronically signed by: Jayant Vazquez M.D. 06/24/2017 2:15 PM Dictated Date/Time: 06/24/2017 2:14 PM
[2017-06-24 14:29] LABS: MEAN CORPUSCULAR HGB CONC 31.2 g/dl (32-36)
[2017-06-24 14:37] LABS: PTT PATIENT 31.3 SECONDS (21.0-31.0)
[2017-06-24 14:41] LABS: HEMATOCRIT 39.4 % (42-52); HEMOGLOBIN 12.3 g/dL (14.0-18.0); MEAN CORPUSCULAR HEMOGLOBIN 28.1 pg (25-34); RED CELL DISTRIBUTION WIDTH CV 17.2 % (11.5-14.5); WHITE BLOOD COUNT 6.59 K/uL (4.8-10.8)
[2017-06-24 14:48] LABS: CALCIUM 8.4 mg/dl (8.5-10.1); CREATININE 1.22 mg/dl (0.60-1.40); MEAN PLATELET VOLUME 10.8 fL (7.4-10.4); PLATELET COUNT 107 K/uL (130-400); POTASSIUM 4.4 mmol/L (3.5-5.1)
--- NOTE | 2017-06-24 14:48 | EMERGENCY ROOM VISIT NOTE ---
History First contact with patient: 13:18 Chief Complaint: FALL Stated Complaint: FALL;PAIN IN LEFT SIDE HIP/LEG History of Present Illness Patient is a 77-year-old white male who presents the emergency department accompanied by his for evaluation of left hip pain after a mechanical fall that occurred about one hour prior to presenting to the emergency department. Patient reports that he had been at his doctor's office this morning for blood draw to check his INR. When he got home, he was rushing to get in to use the bathroom, and he got his shoe caught on the edge of a carpet, tripped and fell, landing on his left hip. He had immediate onset of pain in the lateral aspect of the left hip. His tried to get him up, but wasn't able, so contacted to family members who were able to pick the patient up and place him on his seated walker. They then rolled him out to the car, picked him up and placed him in the vehicle. He did not attempt to ambulate, and he did not feel that he could put weight on the left leg due to pain. He rates his discomfort a 7/ 10 presently. He did not take any medications for his pain. He denies any numbness, tingling or paresthesias radiating down the left leg. He notes the pain is in the lateral aspect of the left hip, and does not radiate. He denies striking his head. He denies feeling lightheaded or dizzy, no chest pain, palpitations or firing from his defibrillator, he reports that the fall was purely because he tripped and fell. He does have a history of transverse myelitis, and usually ambulates with a walker or a cane, but not normally inside his home. He denies any other injuries related to the fall, he denies any low back pain, chest or rib pain. No shortness of breath. No abdominal pain. Review of Systems Review of systems as per HPI. All other systems reviewed were negative. 10 systems reviewed. Past Medical/Surgical History Medical Problems: (1) Abdom Aortic Aneurysm (2) Aortic dissection, thoracic (3) Beta-hemolytic group B streptococcal sepsis (4) CAD (coronary artery disease) (5) Chronic Kidney Disease, Unspecified (6) Chronic Obstructive Pulmonary Disease W (Acute) Exacerbation (7) Fever (8) Gram positive septicemia (9) H/O thrombosis (10) H/O: pneumonia (11) HTN (hypertension) (12) Hyperlipidemia, Unspecified (13) Hypertrophy (Benign) Of Prostate W/O Urinary Obst & Oth Luts (14) Hypothyroidism, Unspecified (15) Lower extremity weakness (16) Lumbar back pain (17) Presence of combination internal cardiac defibrillator (ICD) and pacemaker (18) Transverse myelitis Surgical Problems: (1) aortic valve replacement with cadaver valve (2) Aortocoronary Bypass (3) H/O aortic valve replacement with porcine valve (4) History of aortic valve replacement with metallic valve Electronic medical records are reviewed and summarized as above/below. See Problem List. Family History Patient reports no known family medical history. Social History Smoking Status: Never Smoker Alcohol Use: none Drug Use: none Marital Status: Housing Status: lives with family Occupation Status: retired Current/Historical Medications Scheduled Amiodarone HCl (Amiodarone HCl), 200 MG PO QAM Ascorbic Acid (Vitamin C), 1 TAB PO QAM Aspirin (Aspirin), 81 MG PO QAM Bumetanide (Bumex), 1 TAB PO BID Docusate Sodium (Docusate Sodium), 100 MG PO QPM Famotidine (Famotidine), 20 MG PO QAM Fish Oil ([place]-3), 1 CAP PO QAM Lecithin (Lecithin), 1,200 MG QAM Levothyroxine Sodium (Levothyroxine Sodium), 25 MCG PO QAM Metoprolol Succinate (Toprol Xl), 100 MG PO QAM Multivitamin (Multivitamin), 1 TAB PO QAM Nitroglycerin (Nitrostat), 0.4 MG UT PRN Potassium Chloride (Potassium Chloride Er), 10 MEQ BID Pravastatin Sodium (Pravastatin Sodium), 40 MG HS Ramipril (Ramipril), 5 MG PO QAM Tamsulosin HCl (Tamsulosin HCl), 0.4 MG PO HS Warfarin Sod (Jantoven), 2.5 MG PO 5XWK Warfarin Sod (Jantoven), 1.25 MG PO 2XWK Physical Exam Vital Signs Date Time Temp Pulse Resp B/P (MAP) Pulse Ox O2 Delivery O2 Flow Rate FiO2 06/24/17 15:24 64 23 157/86 92 Room Air 06/24/17 14:42 64 18 157/68 96 Room Air 06/24/17 14:41 64 15 06/24/17 14:36 65 19 06/24/17 14:31 64 20 06/24/17 14:28 64 06/24/17 14:26 64 17 06/24/17 13:17 128/70 06/24/17 12:21 36.6 72 18 163/75 94 Room Air Physical Exam GENERAL: Patient is a pleasant, well-appearing 77-year-old white male who is awake and alert and in no acute distress. HEENT: Head - normocephalic and atraumatic. Pupils are equal, round, and reactive to light. Extraocular eye muscles are intact and sclera are anicteric. Mouth - moist buccal mucosa with no trauma to the teeth or signs of malocclusion. Neck: The neck is supple and there is no pain to palpation over the posterior cervical spine and no obvious step-offs or deformities. There is no JVD or tracheal deviation. Chest: There are no signs of deformities, contusions or abrasions to the chest wall. There is no obvious crepitus or paradoxical chest rise. Heart: Regular rate, and regular rhythm. Holosystolic murmur noted. Lungs: Breath sounds equal and clear to auscultation without wheezes, rales, or rhonchi heard. Abdomen: Soft, completely nontender, nondistended, with good bowel sounds. There is no sign of trauma such as contusions, abrasions or penetrations. There are no palpable pulsatile masses or hepatosplenomegaly. There is no guarding, rigidity, or rebound noted. Extremities: Chronic venostasis changes noted in the anterior shins bilaterally , with 1+ pitting edema. Left leg is slightly shortened and externally rotated. Examination of the left hip does not demonstrate any ecchymosis, erythema or edema. He is tender to palpation over the lateral aspect of the hip over the greater trochanter, no pain over the left groin area. Range of motion not assessed due to the nature of the injury. There are easily palpable peripheral pulses. Neuro: The patient is awake and alert and easily able to follow commands. Muscle strength is 5 out of 5 in extremities 3, left leg not assessed. Otherwise, neuro exam is unremarkable. Back: The entire thoracic, lumbar, and sacral spine were palpated. No discomfort over the thoracic spine and lumbar spine. There are no obvious step- offs or deformities noted. There are no obvious signs of trauma such as contusions abrasions penetrations noted to the back. Medical Decision & Procedures ER Provider Diagnostic Interpretation: L PELVIS/UNILATERAL HIP 2-3VIEWS CLINICAL HISTORY: FALL, L HIP PAIN trauma. Pain. COMPARISON: None. DISCUSSION: Somewhat limited study as the patient could not tolerate positioning easily. Probable nondisplaced fracture subcapital femoral neck region. No evidence for acetabular protrusion. No evidence of dislocation. Moderate degenerative change right hip. There is no evidence for soft tissue swelling. IMPRESSION: 1. Fracture left femoral neck region extending to the subcapital region left hip. 2. No evidence of dislocation. 3. No evidence for acetabular protrusion. CHEST ONE VIEW PORTABLE CLINICAL HISTORY: preop preoperative evaluation COMPARISON STUDY: 05/12/2017 FINDINGS: Mild chronic cardiomegaly. Implantable cardiac pacemaker/defibrillator with leads in good position. Lungs are considered clear. Chronic elevation left hemidiaphragm. Chronic atelectatic change left base. IMPRESSION: Chronic and postoperative change. No acute process. Laboratory Results 06/24/17 14:16 Red Blood Count 4.38, Mean Corpuscular Volume 90.0, Mean Corpuscular Hemoglobin 28.1, Mean Corpuscular Hemoglobin Concent 31.2, Mean Platelet Volume 10.8, Neutrophils (%) (Auto) 66.9, Lymphocytes (%) (Auto) 22.3, Monocytes (%) (Auto) 8.0, Eosinophils (%) (Auto) 1.4, Basophils (%) (Auto) 0.2, Neutrophils # (Auto) 4.41, Lymphocytes # (Auto) 1.47, Monocytes # (Auto) 0.53, Eosinophils # (Auto) 0.09, Basophils # (Auto) 0.01 06/24/17 14:16 Test 06/24/17 14:16 White Blood Count 6.59 K/uL (4.8-10.8) Red Blood Count 4.38 M/uL (4.7-6.1) Hemoglobin 12.3 g/dL (14.0-18.0) Hematocrit 39.4 % (42-52) Mean Corpuscular Volume 90.0 fL (80-100) Mean Corpuscular Hemoglobin 28.1 pg (25-34) Mean Corpuscular Hemoglobin Concent 31.2 g/dl (32-36) Platelet Count 107 K/uL (130-400) Mean Platelet Volume 10.8 fL (7.4-10.4) Neutrophils (%) (Auto) 66.9 % Lymphocytes (%) (Auto) 22.3 % Monocytes (%) (Auto) 8.0 % Eosinophils (%) (Auto) 1.4 % Basophils (%) (Auto) 0.2 % Neutrophils # (Auto) 4.41 K/uL (1.4-6.5) Lymphocytes # (Auto) 1.47 K/uL (1.2-3.4) Monocytes # (Auto) 0.53 K/uL (0.11-0.59) Eosinophils # (Auto) 0.09 K/uL (0-0.5) Basophils # (Auto) 0.01 K/uL (0-0.2) RDW Standard Deviation 57.0 fL (36.4-46.3) RDW Coefficient of Variation 17.2 % (11.5-14.5) Immature Granulocyte % (Auto) 1.2 % Immature Granulocyte # (Auto) 0.08 K/uL (0.00-0.02) Platelet Estimate DECREASED Prothrombin Time 21.0 SECONDS (9.0-12.0) Prothromb Time International Ratio 2.0 (0.9-1.1) Activated Partial Thromboplast Time 31.3 SECONDS (21.0-31.0) Partial Thromboplastin Ratio 1.2 Anion Gap 2.0 mmol/L (3-11) Est Creatinine Clear Calc Drug Dose 55.2 ml/min Estimated GFR () 65.9 Estimated GFR (Non- 56.8 BUN/Creatinine Ratio 15.4 (10-20) Calcium Level 8.4 mg/dl (8.5-10.1) Total Bilirubin 0.5 mg/dl (0.2-1) Direct Bilirubin 0.1 mg/dl (0-0.2) Aspartate Amino Transf (AST/SGOT) 32 U/L (15-37) Alanine Aminotransferase (ALT/SGPT) 45 U/L (12-78) Alkaline Phosphatase 76 U/L (45-117) Total Protein 7.3 gm/dl (6.4-8.2) Albumin 3.8 gm/dl (3.4-5.0) Medications Administered Medications (Trade) Dose Ordered Sig/Deion Route Start Time Stop Time Status Last Admin Dose Admin Acetaminophen 100 ml @ 400 mls/hr NOW STAT IV 06/24/17 16:06 06/24/17 16:20 DC 06/24/17 16:12 400 MLS/HR ED Course The patient was seen and assessed as above. He was offered medication for discomfort, but declined. Left hip and AP pelvis x-rays were obtained. Findings are consistent with a subcapital left hip fracture. Hip fracture order set was then used to place remainder of preoperative orders. Patient was reviewed with attending physician who also independently evaluated the patient. I did discuss the patient with Dr. Harkins with [facility], and with Dr. Tomas with the [facility] for admission. He will be medically cleared, and undergo surgical intervention. Patient is a 77-year-old white male who suffered a mechanical fall at home, sustaining a left fracture. Differential diagnoses also entertained included femur fracture, pelvic fracture, hip contusion, hip dislocation, or spine injury , among others. Per history, mechanism is consistent with arrhythmia, syncope or seizure. Medical Decision See ED Course. Medication Reconcilliation Current Medication List: was personally reviewed by me Blood Pressure Screening Patient's blood pressure: Elevated blood pressure Blood pressure disposition: Elevated BP felt to be situational Impression Primary Impression: Closed left hip fracture Departure Information Dispostion Admitted as an inpatient Referrals Byron Vizcaino M.D. (PCP) Patient Instructions My [facility]
[2017-06-24 14:49] LABS: BASO % 0.2 %; BASO ABS # 0.01 K/uL (0-0.2); EOS % 1.4 %; EOS ABS # 0.09 K/uL (0-0.5); IG# 0.08 K/uL (0.00-0.02); LYMPH % 22.3 %; LYMPH ABS # 1.47 K/uL (1.2-3.4); MONO ABS # 0.53 K/uL (0.11-0.59); NEUT % 66.9 %; NEUT ABS # 4.41 K/uL (1.4-6.5)
[2017-06-24] MEDS ORDERED: ACETAMINOPHEN IV 100 ML IV STA (16:06)
[2017-06-24] MEDS ORDERED: ONDANSETRON INJ 2 MG/ML 2 ML VIAL IV PRN (16:15)
[2017-06-24] MEDS ORDERED: SOD PHOSPHATE/SOD BIPHOSPHATE ENEMA 132 ML BTL PR PRN (16:15)
[2017-06-24] MEDS ORDERED: NALOXONE HCL 0.4 MG/1 ML VIAL/CARP IV PRN (16:15)
[2017-06-24] MEDS ORDERED: BISACODYL 10 MG SUPP PR PRN (16:15)
[2017-06-24] MEDS ORDERED: POLYETHYLENE (MIRALAX) 17 GM PACK PO PRN ×2 (16:15)
[2017-06-24] MEDS ORDERED: ALUMINUM/MAGNESIUM/SIMETH (MAALOX MAX) 30 ML UDC PO PRN (16:15)
[2017-06-24] MEDS ORDERED: NITROGLYCERIN 0.4 MG SL PER TAB CHARGE UT PRN (16:15)
[2017-06-24] MEDS ORDERED: MAGNESIUM HYDROXIDE SUSP 30 ML UDC PO PRN ×2 (16:15)
--- NOTE | 2017-06-24 16:29 | History and Physical ---
History & Physical Date & Time of Service: Jun 24, 2017 at 16:19 Chief Complaint: Fall;Pain In Left Side Hip/Leg Primary Care Physician: Byron Vizcaino M.D. History of Present Illness Source: patient, spouse Mr. Garcia is a 77 y/o male with PMHx of CAD S/P CABG, Aortic Dissection S/P Repair, Aortic Valve Replacement x 3 (Mechanical to Cadaver to Current Bovine), S/P Pacer/ICD, AAA measuring 6.1 cm, Systolic CHF with EF 35-40%, CKD Stage III , Peripheral Vascular Disease, Atrial Fibrillation, L Renal Mass, Transverse Myelitis, and Hypothyroidism who presents to the ED c/o fall resulting in L hip pain. Patient reports he returned from his doctor's office visit and needed to go to the bathroom as he is on Bumex. He states he rushed to the bathroom and was able to go but also rushed out of the bathroom. He states he normally takes his shoes off while in house but her shoe caught on the edge of the carpet and he tripped and fell on his left hip. He reports immediate onset of pain in the left hip, family members were contacted and helped lift him to his seated walker. The same family members were able to get into the car and place him in the vehicle. The patient has not placed any weight on this leg. Currently the pain is a 7/10 and achy in quality. He states that he does not like to take medications and currently has not taken anything for this pain. He denies numbness or tingling of this left leg. He denies any other pain or injury. He denies hitting his head or any loss of consciousness. He reports feeling well prior to this fall with no recent illness. He has a ICD but denies any firing from this device. He states he has a history of transverse myelitis that affects both his lower extremities however his left leg is more "gimpy" compared to the right. Patient does have a walker and a cane that he occasionally uses when outside the home but typically does not need assistance at home. Past Medical/Surgical History 1. CAD S/P CABG 2. Aortic Dissection S/P Repair 3. Aortic Valve Replacement x 3 (Mechanical then Cadaver and currently Bovine) 4. S/P Pacer/ICD 5. AAA - measuring 6.1 cm 6. Systolic CHF with EF 35-40% 7. CKD Stage III 8. Peripheral Vascular Disease 9. Atrial Fibrillation 10. L Renal Mass - concerning for RCC 11. Transverse Myelitis 12. Hypothyroidism Family History Family history was reviewed; no changes noted. Social History Smoking Status: Former Smoker Smokeless Tobacco Use: No Alcohol Use: none Drug Use: none Marital Status: Housing status: lives with family Occupational Status: retired Immunizations History of Influenza Vaccine: No History of Tetanus Vaccine?: Yes History of Pneumococcal: Yes Pneumococcal Date: Apr 08, 2002 History of Hepatitis B Vaccine: No Multi-Drug Resistant Organisms History of MDRO: No Allergies Coded Allergies: Adhesives (Verified Allergy, Unknown, removed skin, 06/24/17) Home Medications Scheduled Amiodarone HCl (Amiodarone HCl), 200 MG PO QAM Ascorbic Acid (Vitamin C), 1 TAB PO QAM Aspirin (Aspirin), 81 MG PO QAM Bumetanide (Bumex), 1 TAB PO BID Docusate Sodium (Docusate Sodium), 100 MG PO QPM Famotidine (Famotidine), 20 MG PO QAM Fish Oil ([place]-3), 1 CAP PO QAM Lecithin (Lecithin), 1,200 MG QAM Levothyroxine Sodium (Levothyroxine Sodium), 25 MCG PO QAM Metoprolol Succinate (Toprol Xl), 100 MG PO QAM Multivitamin (Multivitamin), 1 TAB PO QAM Nitroglycerin (Nitrostat), 0.4 MG UT PRN Potassium Chloride (Potassium Chloride Er), 10 MEQ BID Pravastatin Sodium (Pravastatin Sodium), 40 MG HS Ramipril (Ramipril), 5 MG PO QAM Tamsulosin HCl (Tamsulosin HCl), 0.4 MG PO HS Warfarin Sod (Jantoven), 2.5 MG PO 5XWK Warfarin Sod (Jantoven), 1.25 MG PO 2XWK Review of Systems Constitutional: No fever, No chills, No weakness ENT: + problem reported (chronic hoarse voice 2/2 vocal cord paralysis), No nasal symptoms, No sore throat Respiratory: No cough, No shortness of breath Cardiovascular: No chest pain, No orthopnea, No palpitations Abdomen: No pain, No nausea, No vomiting, No diarrhea, No constipation, No GI bleeding Musculoskeletal: + problem reported (Reporting b/l hip pain), No swelling, No calf pain Genitourinary - Male: No dysuria Neurologic: No numbness/tingling Hematologic / Lymphatic: No abnormal bleeding/bruising Integumentary: No rash Physical Exam Vital Signs Date Time Temp Pulse Resp B/P (MAP) Pulse Ox O2 Delivery O2 Flow Rate FiO2 06/24/17 15:24 64 23 157/86 92 Room Air 06/24/17 14:42 64 18 157/68 96 Room Air 06/24/17 14:41 64 15 06/24/17 14:36 65 19 06/24/17 14:31 64 20 06/24/17 14:28 64 06/24/17 14:26 64 17 06/24/17 13:17 128/70 06/24/17 12:21 36.6 72 18 163/75 94 Room Air General Appearance: WD/WN, no apparent distress Head: normocephalic, atraumatic Eyes: sclerae normal ENT: hearing grossly normal Neck: supple, no JVD, trachea midline Respiratory/Chest: lungs clear, normal breath sounds, no respiratory distress, no accessory muscle use Cardiovascular: regular rate, rhythm, + systolic murmur Abdomen/GI: normal bowel sounds, non tender, soft Extremities/Musculoskelatal: no calf tenderness, + pertinent finding (L hip is slightly shortened and externally rotated; appropriate cap refill; motion intact to toes; chronic venous changes of lower extremities b/l and dry skin) Neurologic/Psych: alert, oriented x 3 Skin: normal color, warm/dry Diagnostics Laboratory Results Results Past 24 Hours Test 06/24/17 14:16 Range/Units White Blood Count 6.59 4.8-10.8 K/uL Red Blood Count 4.38 4.7-6.1 M/uL Hemoglobin 12.3 14.0-18.0 g/dL Hematocrit 39.4 42-52 % Mean Corpuscular Volume 90.0 80-100 fL Mean Corpuscular Hemoglobin 28.1 25-34 pg Mean Corpuscular Hemoglobin Concent 31.2 32-36 g/dl Platelet Count 107 130-400 K/uL Mean Platelet Volume 10.8 7.4-10.4 fL Neutrophils (%) (Auto) 66.9 % Lymphocytes (%) (Auto) 22.3 % Monocytes (%) (Auto) 8.0 % Eosinophils (%) (Auto) 1.4 % Basophils (%) (Auto) 0.2 % Neutrophils # (Auto) 4.41 1.4-6.5 K/uL Lymphocytes # (Auto) 1.47 1.2-3.4 K/uL Monocytes # (Auto) 0.53 0.11-0.59 K/uL Eosinophils # (Auto) 0.09 0-0.5 K/uL Basophils # (Auto) 0.01 0-0.2 K/uL RDW Standard Deviation 57.0 36.4-46.3 fL RDW Coefficient of Variation 17.2 11.5-14.5 % Immature Granulocyte % (Auto) 1.2 % Immature Granulocyte # (Auto) 0.08 0.00-0.02 K/uL Platelet Estimate DECREASED Prothrombin Time 21.0 9.0-12.0 SECONDS Prothromb Time International Ratio 2.0 0.9-1.1 Activated Partial Thromboplast Time 31.3 21.0-31.0 SECONDS Partial Thromboplastin Ratio 1.2 Sodium Level 139 136-145 mmol/L Potassium Level 4.4 3.5-5.1 mmol/L Chloride Level 104 98-107 mmol/L Carbon Dioxide Level 33 21-32 mmol/L Anion Gap 2.0 3-11 mmol/L Blood Urea Nitrogen 19 7-18 mg/dl Creatinine 1.22 0.60-1.40 mg/dl Est Creatinine Clear Calc Drug Dose 55.2 ml/min Estimated GFR () 65.9 Estimated GFR (Non- 56.8 BUN/Creatinine Ratio 15.4 10-20 Random Glucose 96 70-99 mg/dl Calcium Level 8.4 8.5-10.1 mg/dl Diagnostic Radiology L PELVIS/UNILATERAL HIP 2-3VIEWS DISCUSSION: Somewhat limited study as the patient could not tolerate positioning easily. Probable nondisplaced fracture subcapital femoral neck region. No evidence for acetabular protrusion. No evidence of dislocation. Moderate degenerative change right hip. There is no evidence for soft tissue swelling. IMPRESSION: 1. Fracture left femoral neck region extending to the subcapital region left hip. 2. No evidence of dislocation. 3. No evidence for acetabular protrusion. CHEST ONE VIEW PORTABLE FINDINGS: Mild chronic cardiomegaly. Implantable cardiac pacemaker/defibrillator with leads in good position. Lungs are considered clear. Chronic elevation left hemidiaphragm. Chronic atelectatic change left base. IMPRESSION: Chronic and postoperative change. No acute process. EKG Wide QRS rhythm Left ventricular hypertrophy with QRS widening and repolarization abnormality Abnormal ECG When compared with ECG of 14-MAY-2017 12:45, Wide QRS rhythm has replaced Sinus rhythm Impression Assessment and Plan Mr. Garcia is a 77 y/o male with PMHx of CAD S/P CABG, Aortic Dissection S/P Repair, Aortic Valve Replacement x 3 (Mechanical to Cadaver to Current Bovine), S/P Pacer/ICD, AAA measuring 6.1 cm, Systolic CHF with EF 35-40%, CKD Stage III , Peripheral Vascular Disease, Atrial Fibrillation, L Renal Mass, Transverse Myelitis, and Hypothyroidism who presents to the ED c/o fall resulting in L hip pain. L Hip Fracture: - Maintain bedrest at this time; Sandoval placed; preoperative antibiotics and prep ordered - hip fracture protocol - Tylenol 1 g IV Q8H PRN and morphine 1 mg IV PRN - patient initially refused all pain medications but is willing to utilize Tylenol - INR is currently 2.0 - last dose of warfarin was last night on 06/23; last dose of aspirin this a.m. 06/24 - Orthopedics following - appreciate recommendations and plan for surgical repair Pre-Operative Clearance: - Patient does have extensive cardiac history, please see below; patient reports that he is able to complete ADLs and ambulates without LOZANO or anginal symptoms - EKG reviewed her plan change from EKG from April 2017 - Patient is currently anticoagulated with an INR of 2.0 - anticoagulation is placed due to his underlying atrial fibrillation as his current aortic valve is bovine - does report history of left shoulder clot (unsure if this was superficial vs deep venous) - Kidney function appears baseline; CXR reports no acute cardiopulmonary findings - Would appreciate cardiology's input and clearance as orthopedic intervention is a high-risk procedure - patient however appears stable from his chronic conditions however we would expect him to be a moderate risk of complication Extensive Cardiac History: - CAD S/P CABG, Aortic Dissection S/P Repair, AAA at 6.1 cm, AVR x 3 (Current Bovine), Atrial Fibrillation, S/P Pacer/ICD, Systolic CHF EF 35-40% - Amiodarone 200 mg daily and Toprol-XL 100 mg daily - Hold warfarin in anticipation of surgery - if INR still elevated in AM can reverse with Vit K - Will hold Bumex and Ramipril at this time - gentle hydration and continue daily weights and I&Os - appears euvolemic at this time CKD Stage III: STABLE - Continue to monitor kidney function especially after surgical intervention - avoid nephrotoxic agents L Renal Mass: Concerning for RCC - Patient has only opted for minimal intervention for this renal mass - he was supposed to have cryotherapy done by urology however needed clearance due to his AAA; per review of outpatient records states he was seen by Dr. Dunaway who states no repair was necessary at this time - urology plans to perform procedure in August 2017 Transverse Myelitis: STABLE - Patient reports no worsening of issues prior to this fall - states his left leg is more "gimpy" compared to his right leg Hypothyroidism: - Synthroid 25 mcg daily DVT Prophylaxis: SCDs; avoid chemical prophylaxis due to ossicle surgery Code Status: DO NOT RESUSCITATE Disposition: - PT/OT evaluations - Patient from home normally ambulates in-house without assistance but has walker/cane for travel outside of home - Will initially monitor on telemetry given cardiac history and possible need for IV cardiac medication when NPO - if stable post-surgery can likely be transferred to Med/Surg I personally interviewed and examined the patient. I agree with history of present illness and physical exam mentioned above, I also performed my own history taking and examination. Past medical history and review of system has been obtained by myself I reviewed all pertinent labs and studies Reviewed current medications I discussed and formulated of the assessment and plan mentioned above. Please refer to the Summary mentioned below. Agree With Miss. Perez's plan 77-year-old man with complicated past medical history presented to the ED status post mechanical fall and hip fracture General Appearance: not in acute distress Eyes: normal Sclerae, extraocular muscle intact ENT: hearing grossly normal Neck: supple Respiratory/Chest: normal air entry bilateral ,no respiratory distress, no accessory muscle use, comfortable Cardiovascular: regular rate, rhythm, no murmur Abdomen: non tender, soft, no masses Extremities: no edema Neurologic/Psychiatric: Awake alert oriented times place and person moves all extremities sensation intact cranial nerves II-12 appear to be intact Skin: normal color, warm/dry, no rash Assessment Status post mechanical fall and hip fracture Complicated cardiac history as mentioned above Plan Giving the partial stability, the complexity of her situation, and the urgency of the procedure It's my best clinical judgment that benefits of the procedure outweighs the risk , this patient is medically cleared for the procedure despite of moderate to high risk of complication. Time Study Technician was consulted as well We'll transfuse 2 units of fresh frozen plasma to reverse patient INR Decrease Toprol-XL to 50 mg as his pressure is borderline low Level of Care Telemetry Resuscitation Status DO NOT RESUSCITATE VTE Prophylaxis VTE Risk Assessment Done? Y/N: Yes Risk Level: Moderate Given or contraindicated: SCD's
[2017-06-24] MEDS ORDERED: MoRPHine SULFATE 2 MG/ML CARP IV PRN (16:30)
--- NOTE | 2017-06-24 17:00 | NUR ---
admission assessment completed, see documentation. awaiting bed placement. at bedside ED room B3. call miner in reach. pt denies current pain
[2017-06-24 17:07] VITALS: Ht 172.7 cm; Wt 96.3 kg
[2017-06-24] MEDS ORDERED: HydrALAZINE HCL 20 MG/ML VIAL IV. PRN (17:30)
[2017-06-24 17:32] LABS: ALBUMIN 3.8 gm/dl (3.4-5.0); TOTAL PROTEIN 7.3 gm/dl (6.4-8.2)
--- NOTE | 2017-06-24 17:48 | NUR ---
Pt admitted to room 203 telemetry at this time. Rates pain in left hip at 1/10 while lying in bed. Denies N/T in left foot. PPP. VSS and placed on 2LNC. Oriented to unit and call miner. Safety reviewed. Needs addressed and call miner in reach. Report given to bari Stearns RN
[2017-06-24] MEDS: SODIUM CHLORIDE 0.9% 1000ML 1,000 ML IV SCH (19:05)
[2017-06-24 20:00] VITALS: O2SAT 95
--- NOTE | 2017-06-24 20:00 | NUR ---
A: drowsy & oriented x4, bilateral diminished lungs with moist, non-productive cough, reported left leg pain 6.5/10, IV infusing
[2017-06-24 20:36] VITALS: BP_SYST 129; BP_SYST 94; BP_SYST 96; BP_DIAS 45; BP_DIAS 55; BP_DIAS 59; PULSE 64; PULSE 65; PULSE 68; TEMP 36.9; O2SAT 95
[2017-06-24] MEDS: PRAVASTATIN SOD 40 MG TAB PO SCH (20:43)
[2017-06-24] MEDS: DOCUSATE SODIUM/SENNA 50/8.6MG TAB PO SCH (20:43)
[2017-06-24] MEDS: TAMSULOSIN HCL 0.4 MG CAP PO SCH (20:43)
[2017-06-24] MEDS: DOCUSATE SODIUM 100 MG CAP PO SCH (20:43)
[2017-06-24] MEDS: ACETAMINOPHEN IV 1,000 MG in EMPTY BAG 0 ML IV PRN (21:25)
[2017-06-25] VITALS (32 sets, daily range): BP systolic 91–138; BP diastolic 45–96; PULSE 59–90; TEMP 36.1–37; O2SAT 90–98
--- NOTE | 2017-06-25 00:50 | NUR ---
Pt Alert and Oriented. Vital signs taken at 0049. Blood Product started at 0050 after being co-signed with RN.
--- NOTE | 2017-06-25 01:50 | NUR ---
Pt first unit of FFP transfusion is complete at this time. Awaiting the second unit from blood bank now. Vitals taken. No Reactions. Pt stable with no complaints.
--- NOTE | 2017-06-25 01:54 | NUR ---
Pressed Stop Button in Transfusion section accidently. Continuing to document Vitals in Regular Vitals Charting Area.
--- NOTE | 2017-06-25 02:36 | NUR ---
Pt second unit of FFP was started at 2:36. Pt is Alert and oriented. Co-signiture complete. Vitals complete. Will continue to monitor.
--- NOTE | 2017-06-25 03:20 | NUR ---
FFP is complete at this time.Pt alert and oriented with no reactions. Pt vitals have been taken. Will continue to monitor.
--- NOTE | 2017-06-25 04:53 | ORTHOPEDIC CONSULTATION ---
DATE OF CONSULTATION: 06/24/2017 HISTORY OF PRESENT ILLNESS: The patient is a 77-year-old male who tripped on a rug, fell and fractured his left hip. He does have a significant past medical history of multiple issues including coronary artery disease and CABG; history of aortic dissection, status post repair; aortic valve replacement x3; pacemaker; ICD; AAA 6.1 cm; systolic CHF, ejection fraction 35% to 40%; chronic kidney disease stage III; peripheral vascular disease; AFib; left renal mass; transverse myelitis; hypothyroidism. FAMILY HISTORY: Noncontributory. SOCIAL HISTORY: , lives at home with his family. ALLERGIES: ADHESIVES. MEDICATIONS: Multiple including warfarin, amiodarone, vitamin C, aspirin, Bumex, docusate sodium, famotidine, omega 3, lecithin, levothyroxine sodium, Toprol-XL, vitamin, Nitrostat, potassium, ramipril, tamsulosin hydrochloride. PHYSICAL EXAMINATION: HEAD AND NECK: No obvious trauma. MUSCULOSKELETAL: No upper extremity trauma. His left hip is shortened and externally rotated. He has chronic venous stasis disease, both lower extremities. He has decent capillary refill, but has difficulty getting any good strong palpable pulses. SKIN: His skin is intact over left hip. His radiographs demonstrate that the left hip, he has a displaced left femoral neck fracture. There is some osteopenia of the bones. He has multiple vascular clips both groin area from surgical procedures. ASSESSMENT: Displaced left femoral neck fracture. I discussed with him with his health issues he is going to require medical clearance and medical management and he has INR of 1.9, which would have to be 1.5 to perform the surgery. He is going to need anesthesia consultation to assess his risk for surgery as family did mention there was some question of tumor, I presume in the kidney and they decided not to proceed with surgery and there was some concern that he has the abdominal aortic aneurysm that is 6 cm that could be an issue as well. 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 I discussed the risks at length with the family and we did go ahead and have consent signed. The patient will be scheduled pending medical clearance, likely anesthesia clearance and correction of his coagulation status to an acceptable level. MTDD
[2017-06-25] MEDS: LEVOTHYROXINE 25 MCG TAB PO SCH (05:58)
[2017-06-25] MEDS: CEFAZOLIN 2000MG IV PUSH 10 ML IV SCH ×2 (05:59→16:39)
[2017-06-25] MEDS ORDERED: CEFAZOLIN IV 2,000 MG in DEXTROSE 5% 50ML 50 ML IV SCH (06:00)
[2017-06-25 06:07] LABS: INR 1.6 (0.9-1.1)
[2017-06-25 06:31] LABS: CALCIUM 8.1 mg/dl (8.5-10.1); CREATININE 1.04 mg/dl (0.60-1.40); POTASSIUM 3.8 mmol/L (3.5-5.1)
[2017-06-25 06:42] LABS: HEMATOCRIT 33.2 % (42-52); HEMOGLOBIN 10.3 g/dL (14.0-18.0); MEAN CELL VOLUME 89.7 fL (80-100); MEAN CORPUSCULAR HEMOGLOBIN 27.8 pg (25-34); PLATELET COUNT 82 K/uL (130-400); RED CELL DISTRIBUTION WIDTH CV 17.7 % (11.5-14.5); RED CELL DISTRIBUTION WIDTH SD 58.6 fL (36.4-46.3); WHITE BLOOD COUNT 6.03 K/uL (4.8-10.8)
--- NOTE | 2017-06-25 07:30 | NUR ---
A/ID: Pt seen and assessed. Pt awake, alert, and oriented x 4. Pt denied CP or SOB at the time of assessment. Pt states having pain to L hip, will monitor pain and provide PRN pain medication as needed. For complete assessment see EMR. Pt is in bed at this time. Bed is in lowest position with two side rails up, call miner is within reach. Case management to follow with Pt for DC planning.
--- NOTE | 2017-06-25 08:35 | Hospitalist Progress Note ---
Hospitalist Progress Note Date of Service Jun 25, 2017. Subjective Pt evaluation today including: conversation w/ patient, physical exam, chart review, lab review, review of studies, review of inpatient medication list Patient seen and evaluated. No acute events overnight. Reporting good control with Tylenol IV. States he does not want any narcotics. Does appear to be comfortable. INR improved to 1.6 but discussed with Ortho that a low number will be better due to hip procedures bleed more. Will do FFP x 1 more unit He is hemodynamically stable and volume status is appropriate. Per patient, Dr. Stock was in this morning to see him. He continues to be chest pain free and no SOB. Laboratories appropriate. Telemetry monitoring shows NSR with intermittent pacing. Plan for surgical intervention later this afternoon. Constitutional: No fever Respiratory: No cough, No shortness of breath Cardiovascular: No chest pain, No palpitations Abdomen: No pain, No nausea, No vomiting, No diarrhea, No constipation, No GI bleeding Musculoskeletal: + joint pain (L hip - controlled with Tylenol) Male : No dysuria Heme: No abnormal bleeding/bruising Medications Current Inpatient Medications Medications (Trade) Dose Ordered Sig/Deion Route Start Time Stop Time Status Last Admin Dose Admin Sodium Chloride 1,000 ml @ 75 mls/hr [id number] IV 06/24/17 18:00 06/25/17 20:39 06/24/17 19:05 75 MLS/HR Al Hydrox/Mg Hydrox/Simethicone (Maalox Max Susp) 15 ml Q4H PRN PO 06/24/17 16:15 07/24/17 16:14 Magnesium Hydroxide (Milk Of Magnesia Susp) 30 ml Q12H PRN PO 06/24/17 16:15 07/24/17 16:14 Ondansetron HCl (Zofran Inj) 4 mg Q6H PRN IV 06/24/17 16:15 07/24/17 16:14 Naloxone HCl (Narcan Inj) 0.1 mg PRN PRN IV 06/24/17 16:15 07/24/17 16:14 Senna/Docusate Sodium (Senokot S Tab) 2 tab HS PO 06/24/17 21:00 07/24/17 20:59 06/24/17 20:43 2 TAB Polyethylene (Miralax Powder Packet) 17 gm DAILY PRN PO 06/24/17 16:15 07/24/17 16:14 Magnesium Hydroxide (Milk Of Magnesia Susp) 30 ml DAILY PRN PO 06/24/17 16:15 07/24/17 16:14 Bisacodyl (Dulcolax Supp) 10 mg DAILY PRN [place] 06/24/17 16:15 07/24/17 16:14 Sodium Biphosphate/ Sodium Phosphate (Fleet Enema) 132 ml PRN PRN [place] 06/24/17 16:15 Amiodarone HCl (Cordarone Tab) 200 mg QAM PO 06/25/17 09:00 07/25/17 08:59 Docusate Sodium (coLACE CAP) 100 mg QPM PO 06/24/17 21:00 07/24/17 20:59 06/24/17 20:43 100 MG Famotidine (Pepcid Tab) 20 mg QAM PO 06/25/17 09:00 07/25/17 08:59 Levothyroxine Sodium (Synthroid Tab) 25 mcg DAILYBB PO 06/25/17 06:00 07/25/17 05:59 06/25/17 05:58 25 MCG Nitroglycerin (Nitrostat Tab) 0.4 mg PRN PRN [place] 06/24/17 16:15 07/24/17 16:14 Pravastatin Sodium (Pravachol Tab) 40 mg HS PO 06/24/17 21:00 07/24/17 20:59 06/24/17 20:43 40 MG Tamsulosin HCl (Flomax Cap) 0.4 mg HS PO 06/24/17 21:00 07/24/17 20:59 06/24/17 20:43 0.4 MG Acetaminophen 1000 mg/Empty Bag 100 ml @ 400 mls/hr Q8H PRN IV 06/24/17 16:30 07/24/17 16:29 06/24/17 21:25 400 MLS/HR Morphine Sulfate (MoRPHine SULFATE INJ) 1 mg Q2H PRN IV 06/24/17 16:30 07/08/17 16:29 06/25/17 06:10 1 MG Hydralazine HCl (HydrALAZINE INJ) 10 mg Q6 PRN IV. 06/24/17 17:30 07/24/17 17:29 Cefazolin Sodium 10 ml @ 2.5 mls/min PREOP IV 06/25/17 06:00 06/25/17 18:00 06/25/17 05:59 2.5 MLS/MIN Metoprolol Succinate (Toprol Xl Tab) 50 mg QAM PO 06/25/17 09:00 07/25/17 08:59 Objective Vital Signs Date Time Temp Pulse Resp B/P (MAP) Pulse Ox O2 Delivery O2 Flow Rate FiO2 06/25/17 08:26 37.0 65 18 91/55 (67) 96 06/25/17 05:22 36.9 64 22 115/68 (84) 95 Nasal Cannula 2.0 06/25/17 04:22 36.9 63 23 120/70 (87) 96 Nasal Cannula 2.0 06/25/17 04:00 95 Nasal Cannula 2.0 06/25/17 03:35 37.0 62 20 119/67 (84) 94 Nasal Cannula 2.0 06/25/17 03:22 36.8 60 20 120/55 (76) 96 Nasal Cannula 2.0 06/25/17 02:51 37.0 62 22 112/50 (70) 95 Nasal Cannula 2.0 06/25/17 02:35 36.9 63 21 112/56 94 2.0 06/25/17 02:35 36.9 65 21 115/49 (71) 96 Nasal Cannula 2.0 06/25/17 01:50 36.9 63 20 110/48 (68) 96 Nasal Cannula 2.0 06/25/17 01:45 37.0 62 22 108/50 (69) 95 Nasal Cannula 2.0 06/25/17 01:35 36.8 60 21 108/48 (68) 94 Nasal Cannula 2.0 06/25/17 01:15 36.8 62 23 120/52 94 2.0 06/25/17 01:15 61 20 120/92 95 2.0 06/25/17 01:05 36.9 61 20 110/48 (68) 94 Nasal Cannula 2.0 06/25/17 01:05 36.9 60 20 118/96 95 2.0 06/25/17 00:49 37.0 60 20 114/49 (70) 95 Nasal Cannula 2.0 06/25/17 00:23 36.8 62 23 103/45 (64) 93 Nasal Cannula 2.0 06/25/17 00:00 95 Nasal Cannula 2.0 06/24/17 20:36 65 96/45 (62) 64 129/55 (79) 06/24/17 20:36 36.9 68 18 94/59 (71) 95 Nasal Cannula 2.0 06/24/17 20:00 95 Nasal Cannula 2.0 06/24/17 17:18 68 12 168/93 100 06/24/17 17:07 Room Air 06/24/17 15:24 64 23 157/86 92 Room Air 06/24/17 14:42 64 18 157/68 96 Room Air 06/24/17 14:41 64 15 06/24/17 14:36 65 19 06/24/17 14:31 64 20 06/24/17 14:28 64 06/24/17 14:26 64 17 06/24/17 13:17 128/70 06/24/17 12:21 36.6 72 18 163/75 94 Room Air Physical Exam General Appearance: WD/WN, no apparent distress Eyes: sclerae normal ENT: hearing grossly normal Neck: supple, no JVD, trachea midline Respiratory/Chest: lungs clear, normal breath sounds, no respiratory distress, no accessory muscle use Cardiovascular: regular rate, rhythm, + systolic murmur Abdomen: normal bowel sounds, non tender, soft Extremities: no calf tenderness, + pertinent finding (motor function intact to toe movement; temperature appropriate; appropriate cap refill) Neurologic/Psychiatric: alert, oriented x 3 Skin: normal color, warm/dry Laboratory Results Last 24 Hours Test 06/24/17 14:16 06/24/17 16:25 06/25/17 05:35 White Blood Count 6.59 K/uL 6.03 K/uL Red Blood Count 4.38 M/uL 3.70 M/uL Hemoglobin 12.3 g/dL 10.3 g/dL Hematocrit 39.4 % 33.2 % Mean Corpuscular Volume 90.0 fL 89.7 fL Mean Corpuscular Hemoglobin 28.1 pg 27.8 pg Mean Corpuscular Hemoglobin Concent 31.2 g/dl 31.0 g/dl Platelet Count 107 K/uL 82 K/uL Mean Platelet Volume 10.8 fL Neutrophils (%) (Auto) 66.9 % Lymphocytes (%) (Auto) 22.3 % Monocytes (%) (Auto) 8.0 % Eosinophils (%) (Auto) 1.4 % Basophils (%) (Auto) 0.2 % Neutrophils # (Auto) 4.41 K/uL Lymphocytes # (Auto) 1.47 K/uL Monocytes # (Auto) 0.53 K/uL Eosinophils # (Auto) 0.09 K/uL Basophils # (Auto) 0.01 K/uL RDW Standard Deviation 57.0 fL 58.6 fL RDW Coefficient of Variation 17.2 % 17.7 % Immature Granulocyte % (Auto) 1.2 % Immature Granulocyte # (Auto) 0.08 K/uL Platelet Estimate DECREASED DECREASED Prothrombin Time 21.0 SECONDS 16.6 SECONDS Prothromb Time International Ratio 2.0 1.6 Activated Partial Thromboplast Time 31.3 SECONDS Partial Thromboplastin Ratio 1.2 Sodium Level 139 mmol/L 140 mmol/L Potassium Level 4.4 mmol/L 3.8 mmol/L Chloride Level 104 mmol/L 106 mmol/L Carbon Dioxide Level 33 mmol/L 31 mmol/L Anion Gap 2.0 mmol/L 3.0 mmol/L Blood Urea Nitrogen 19 mg/dl 17 mg/dl Creatinine 1.22 mg/dl 1.04 mg/dl Est Creatinine Clear Calc Drug Dose 55.2 ml/min 64.8 ml/min Estimated GFR () 65.9 79.9 Estimated GFR (Non- 56.8 68.9 BUN/Creatinine Ratio 15.4 15.9 Random Glucose 96 mg/dl 87 mg/dl Calcium Level 8.4 mg/dl 8.1 mg/dl Total Bilirubin 0.5 mg/dl Direct Bilirubin 0.1 mg/dl Aspartate Amino Transf (AST/SGOT) 32 U/L Alanine Aminotransferase (ALT/SGPT) 45 U/L Alkaline Phosphatase 76 U/L Total Protein 7.3 gm/dl Albumin 3.8 gm/dl Urine Color YELLOW Urine Appearance CLEAR Urine pH 5.5 Urine Specific [place] 1.013 Urine Protein NEG Urine Glucose (UA) NEG Urine Ketones NEG Urine Occult Blood NEG Urine Nitrite NEG Urine Bilirubin NEG Urine Urobilinogen NEG Urine Leukocyte Esterase NEG Magnesium Level 2.3 mg/dl Assessment and Plan Mr. Garcia is a 77 y/o male with PMHx of CAD S/P CABG, Aortic Dissection S/P Repair, Aortic Valve Replacement x 3 (Mechanical to Cadaver to Current Bovine), S/P Pacer/ICD, AAA measuring 6.1 cm, Systolic CHF with EF 35-40%, CKD Stage III , Peripheral Vascular Disease, Atrial Fibrillation, L Renal Mass, Transverse Myelitis, and Hypothyroidism who presents to the ED c/o fall resulting in L hip pain. L Hip Fracture: - Tylenol 1 g IV Q8H PRN and morphine 1 mg IV PRN - patient initially refused all pain medications but is willing to utilize Tylenol - INR to 1.6 with transfusion of FFP x 2 units on 06/24 and will give FFP x 1 unit now to reverse further and recheck INR at noon - Orthopedics following - discussed with Jayant Jeffers - recommend further reversal due to bleeding risk during a hip procedure - plan for surgical repair this afternoon Pre-Operative Clearance: - Patient does have extensive cardiac history, please see below; patient reports that he is able to complete ADLs and ambulates without LOZANO or anginal symptoms - EKG reviewed without much change from EKG from April 2017 - Patient is currently anticoagulated- anticoagulation is placed due to his underlying atrial fibrillation as his current aortic valve is bovine - does report history of left shoulder clot (unsure if this was superficial vs deep venous) - INR has been reversed - Kidney function appears baseline; CXR reports no acute cardiopulmonary findings - Would appreciate cardiology's input as orthopedic intervention is a high-risk procedure - patient however is stable from his chronic conditions however we would expect him to be a moderate risk of complication; Given his functional status prior to injury and risk of not repairing leaving him non-ambulatory he would be medically cleared for intervention but will need close monitoring of fluid balance and hemodynamics during and after surgery - patient is stable in his chronic conditions but is at moderate risk - Did discuss with patient that this surgical intervention is a risk and patient reports that a non-ambulatory status "would not work for me" Extensive Cardiac History: - CAD S/P CABG, Aortic Dissection S/P Repair, AAA at 6.1 cm, AVR x 3 (Current Bovine), Atrial Fibrillation, S/P Pacer/ICD, Systolic CHF EF 35-40% - Amiodarone 200 mg daily and Toprol-XL reduced to 50 mg daily - Hold warfarin in anticipation of surgery - Will hold Bumex and Ramipril at this time - appears euvolemic at this time CKD Stage III: STABLE - Continue to monitor kidney function especially after surgical intervention - avoid nephrotoxic agents L Renal Mass: Concerning for RCC - Patient has only opted for minimal intervention for this renal mass - he was supposed to have cryotherapy done by urology however needed clearance due to his AAA; per review of outpatient records states he was seen by Dr. Dunaway who states no repair was necessary at this time - urology plans to perform procedure in August 2017 Transverse Myelitis: STABLE - Patient reports no worsening of issues prior to this fall - states his left leg is more "gimpy" compared to his right leg Hypothyroidism: - Synthroid 25 mcg daily DVT Prophylaxis: SCDs; avoid chemical prophylaxis due to surgery Code Status: DO NOT RESUSCITATE Disposition: - PT/OT evaluations - Patient from home normally ambulates in-house without assistance but has walker/cane for travel outside of home - Will initially monitor on telemetry given cardiac history and possible need for IV cardiac medication when NPO - if stable post-surgery can likely be transferred to Med/Surg possible tomorrow Continued [facility] stay due to: ambulation difficulties, multiple IV medications needed Discharge planning: uncertain
[2017-06-25] MEDS ORDERED: METOPROLOL SUCC 50MG EXT REL TAB PO SCH (09:00)
[2017-06-25] MEDS: SODIUM CHLORIDE 0.9% 1000ML 1,000 ML IV SCH (09:27)
[2017-06-25] MEDS: ACETAMINOPHEN IV 1,000 MG in EMPTY BAG 0 ML IV PRN (09:28)
[2017-06-25] MEDS: METOPROLOL SUCC 50MG EXT REL TAB PO SCH (09:29)
[2017-06-25] MEDS: FAMOTIDINE 20 MG TAB PO SCH (09:29)
[2017-06-25] MEDS: AMIODARONE 200 MG TAB PO SCH (09:30)
--- NOTE | 2017-06-25 12:00 | NUR ---
A: Pt resting at this time. Pt NPO at this time for OR today. Pt repositioned for comfort Q 1 hr. For full assessment see EMR. Pt in bed at this time, Pt's is at bedside. Bed is in lowest position with two side rails up, call miner is within reach.
[2017-06-25 12:25] LABS: INR 1.5 (0.9-1.1)
--- NOTE | 2017-06-25 13:00 | NUR ---
Case Management Note- Received consult for discharge planning. Met with patient and at bedside. Patient alert & oriented. He gives permission to include his in discharge plans. Patient lives with his in a 1 story house with 1 ELYSE. He is normally independent with ADL's and uses a cane to ambulate. Patient drives at times. No active services. Patient went to [facility] in January for rehab. Role of Section Gang explained. Plan for patient to go to the OR. Patient and anticipate him needing rehab once medically stable. Patient states that he wants to go to [facility] again. With permission, referral made to [facility] Liaison. Awaiting determination.
--- NOTE | 2017-06-25 13:04 | Cardiology Consultation ---
Cardiology Consultation Date of Consultation: Jun 25, 2017. Requesting Physician: Dr Palumbo Reason for Consultation: Preoperative clearance for hip surgery Pt evaluation today including: conversation w/ patient, physical exam, chart review, lab review, review of studies, conversation w/ executive talent acquisition consultant, review of inpatient medication list History of Present Illness This is a very pleasant 77-year-old gentleman with a long and complex cardiovascular history. 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 Toni mechanical valve. Postoperatively he had severe aortic insufficiency, was reexplored for cardiac tamponade and mediastinal bleeding and had hemostasis obtained at that time. 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 Postoperatively he did have atrial fibrillation. He required redo aortic valve replacement in September of 2001 for a perivalvular leak and had a [employer] cadaver valve as well as single vessel bypass surgery performed at that time. His ejection fraction was 35% in September 2001 and he had an ICD subsequently implanted April 09, 2002 (Medtronic model 7274). This was replaced October 13, [address] Toni model V258, this also reached [facility] and was replaced on October 27, [address] Toni Ellipse which remains in place. I believe he required repeat aortic valve replacement surgery at [facility] June 28, 2008, and on November 23, 2008 he had an abdominal aortic aneurysm repair at [facility]. An echocardiogram November 02, 2012 showed mild left ventricular dilatation and with an ejection fraction of 45 % with a properly functioning aortic valve. He he also has atrial arrhythmias identified following being seen acutely on April 25, 2010 with significant fluid retention and weight gain. He was diuresed with improvement in his symptoms and decrease in his fluid retention. He was seen for ICD followup on June 14, 2010, at that time ICD diagnostics demonstrated atrial flutter starting around April 06, 2010. It is likely that this rhythm change was a component of his development of fluid retention. I started him on warfarin anticoagulation at that time and scheduled him for cardioversion which was performed on 07/23/2010. I believe he has remained in sinus rhythm since on amiodarone and warfarin. On 06/24/2017 he slipped and fell, breaking his left hip. He is now scheduled for surgery this afternoon. He reports that he tripped and did not lose consciousness, had no lightheadedness or dizziness leading to the fall. He has had no cardiovascular symptoms, no angina and he is been quite active until this happened. He has had no palpitations. He is on warfarin which has been reversed with the use of fresh frozen plasma. Past Medical/Surgical History (1) H/O: pneumonia (2) Beta-hemolytic group B streptococcal sepsis (3) Abdom Aortic Aneurysm (4) Aortic dissection, thoracic (5) Aortocoronary Bypass (6) H/O aortic valve replacement with porcine valve (7) HTN (hypertension) (8) History of aortic valve replacement with metallic valve (9) Hyperlipidemia, Unspecified (10) Hypothyroidism, Unspecified (11) aortic valve replacement with cadaver valve Family History Patient reports no known family medical history. Social History Smoking Status: Former Smoker History of Alcohol Use: No Review of Systems Constitutional: No fever, No weight loss, No weakness Respiratory: No cough, No shortness of breath Cardiac: No chest pain, No palpitations Abdomen: No pain, No nausea, No vomiting, No diarrhea, No GI bleeding Male : No urinary frequency, No nocturia more than once/night, No slowing stream, No sexual dysfunction Neurologic: No paralysis, No weakness, No numbness/tingling, No balance problems Heme: No abnormal bleeding/bruising, No clotting problems Endo: No fatigue Skin: No problem reported Left hip pain All Other Systems: Reviewed and Negative Allergies Coded Allergies: Adhesives (Verified Allergy, Unknown, removed skin, 06/24/17) Medications Current Inpatient Medications Medications (Trade) Dose Ordered Sig/Deion Route Start Time Stop Time Status Last Admin Dose Admin Sodium Chloride 1,000 ml @ 75 mls/hr [id number] IV 06/24/17 18:00 06/25/17 20:39 06/25/17 09:27 75 MLS/HR Al Hydrox/Mg Hydrox/Simethicone (Maalox Max Susp) 15 ml Q4H PRN PO 06/24/17 16:15 07/24/17 16:14 Magnesium Hydroxide (Milk Of Magnesia Susp) 30 ml Q12H PRN PO 06/24/17 16:15 07/24/17 16:14 Ondansetron HCl (Zofran Inj) 4 mg Q6H PRN IV 06/24/17 16:15 07/24/17 16:14 Naloxone HCl (Narcan Inj) 0.1 mg PRN PRN IV 06/24/17 16:15 07/24/17 16:14 Senna/Docusate Sodium (Senokot S Tab) 2 tab HS PO 06/24/17 21:00 07/24/17 20:59 06/24/17 20:43 2 TAB Polyethylene (Miralax Powder Packet) 17 gm DAILY PRN PO 06/24/17 16:15 07/24/17 16:14 Magnesium Hydroxide (Milk Of Magnesia Susp) 30 ml DAILY PRN PO 06/24/17 16:15 07/24/17 16:14 Bisacodyl (Dulcolax Supp) 10 mg DAILY PRN OK 06/24/17 16:15 07/24/17 16:14 Sodium Biphosphate/ Sodium Phosphate (Fleet Enema) 132 ml PRN PRN OK 06/24/17 16:15 Amiodarone HCl (Cordarone Tab) 200 mg QAM PO 06/25/17 09:00 07/25/17 08:59 06/25/17 09:30 200 MG Docusate Sodium (coLACE CAP) 100 mg QPM PO 06/24/17 21:00 07/24/17 20:59 06/24/17 20:43 100 MG Famotidine (Pepcid Tab) 20 mg QAM PO 06/25/17 09:00 07/25/17 08:59 06/25/17 09:29 20 MG Levothyroxine Sodium (Synthroid Tab) 25 mcg DAILYBB PO 06/25/17 06:00 07/25/17 05:59 06/25/17 05:58 25 MCG Nitroglycerin (Nitrostat Tab) 0.4 mg PRN PRN UT 06/24/17 16:15 07/24/17 16:14 Pravastatin Sodium (Pravachol Tab) 40 mg HS PO 06/24/17 21:00 07/24/17 20:59 06/24/17 20:43 40 MG Tamsulosin HCl (Flomax Cap) 0.4 mg HS PO 06/24/17 21:00 07/24/17 20:59 06/24/17 20:43 0.4 MG Acetaminophen 1000 mg/Empty Bag 100 ml @ 400 mls/hr Q8H PRN IV 06/24/17 16:30 07/24/17 16:29 06/25/17 09:28 400 MLS/HR Morphine Sulfate (MoRPHine SULFATE INJ) 1 mg Q2H PRN IV 06/24/17 16:30 07/08/17 16:29 06/25/17 06:10 1 MG Hydralazine HCl (HydrALAZINE INJ) 10 mg Q6 PRN IV. 06/24/17 17:30 07/24/17 17:29 Cefazolin Sodium 10 ml @ 2.5 mls/min PREOP IV 06/25/17 06:00 06/25/17 18:00 06/25/17 05:59 2.5 MLS/MIN Metoprolol Succinate (Toprol Xl Tab) 50 mg QAM PO 06/25/17 09:00 07/25/17 08:59 06/25/17 09:29 50 MG Physical Exam Vital Signs Past 12 Hours Date Time Temp Pulse Resp B/P (MAP) Pulse Ox O2 Delivery O2 Flow Rate FiO2 06/25/17 12: 36.8 62 18 122/57 (78) 98 06/25/17 12:00 59 21 128/54 (80) 06/25/17 11:45 61 22 98/70 (75) 93 06/25/17 11:30 63 18 122/57 (82) 92 06/25/17 11:15 61 21 138/59 (78) 95 06/25/17 11:00 62 25 126/56 (88) 96 06/25/17 10:45 62 20 95 06/25/17 10:43 63 22 121/58 (88) 95 06/25/17 10:40 36.9 62 17 121/58 95 2.0 06/25/17 10:30 64 21 06/25/17 09:26 65 19 120/61 (80) 92 Room Air 06/25/17 08:26 37.0 65 18 91/55 (67) 96 06/25/17 08:00 95 Nasal Cannula 2.0 06/25/17 05:22 36.9 64 22 115/68 (84) 95 Nasal Cannula 2.0 06/25/17 04:22 36.9 63 23 120/70 (87) 96 Nasal Cannula 2.0 06/25/17 04:00 95 Nasal Cannula 2.0 06/25/17 03:35 37.0 62 20 119/67 (84) 94 Nasal Cannula 2.0 06/25/17 03:22 36.8 60 20 120/55 (76) 96 Nasal Cannula 2.0 06/25/17 02:51 37.0 62 22 112/50 (70) 95 Nasal Cannula 2.0 06/25/17 02:35 36.9 63 21 112/56 94 2.0 06/25/17 02:35 36.9 65 21 115/49 (71) 96 Nasal Cannula 2.0 06/25/17 01:50 36.9 63 20 110/48 (68) 96 Nasal Cannula 2.0 06/25/17 01:45 37.0 62 22 108/50 (69) 95 Nasal Cannula 2.0 06/25/17 01:35 36.8 60 21 108/48 (68) 94 Nasal Cannula 2.0 06/25/17 01:15 36.8 62 23 120/52 94 2.0 06/25/17 01:15 61 20 120/92 95 2.0 06/25/17 01:05 36.9 61 20 110/48 (68) 94 Nasal Cannula 2.0 06/25/17 01:05 36.9 60 20 118/96 95 2.0 06/25/17 00:49 37.0 60 20 114/49 (70) 95 Nasal Cannula 2.0 Constitutional: General Apperance: heathly-appearing Level of Distress: NAD Psychiatric: Mental Status: active & alert Head: normocephalic Eyes: EOM: EOMI ENMT: normal ENT inspection, hearing grossly normal Neck: supple, no masses Lungs: Respiratory effort: no dyspnea, good air movement Auscultation: breath sounds normal, no wheezing Cardiovascular: Heart Auscultation: RRR, no rubs, no gallops, II/ NORM, II/ WSM Peripheral Pulses: Bruits: none appreciated Abdomen: Bowel Sounds: normal Inspection & Palpation: soft, no tenderness, guarding & rebound, no masses Musculoskeletal: normal Extremities: no edema Neurologic: Cranial Nerves: grossly intact Sensation: grossly intact Data Laboratory Results: Last 24 Hours Test 06/24/17 14:16 06/24/17 16:25 06/25/17 05:35 12/27/17 12:03 White Blood Count 6.59 K/uL 6.03 K/uL Red Blood Count 4.38 M/uL 3.70 M/uL Hemoglobin 12.3 g/dL 10.3 g/dL Hematocrit 39.4 % 33.2 % Mean Corpuscular Volume 90.0 fL 89.7 fL Mean Corpuscular Hemoglobin 28.1 pg 27.8 pg Mean Corpuscular Hemoglobin Concent 31.2 g/dl 31.0 g/dl Platelet Count 107 K/uL 82 K/uL Mean Platelet Volume 10.8 fL Neutrophils (%) (Auto) 66.9 % Lymphocytes (%) (Auto) 22.3 % Monocytes (%) (Auto) 8.0 % Eosinophils (%) (Auto) 1.4 % Basophils (%) (Auto) 0.2 % Neutrophils # (Auto) 4.41 K/uL Lymphocytes # (Auto) 1.47 K/uL Monocytes # (Auto) 0.53 K/uL Eosinophils # (Auto) 0.09 K/uL Basophils # (Auto) 0.01 K/uL RDW Standard Deviation 57.0 fL 58.6 fL RDW Coefficient of Variation 17.2 % 17.7 % Immature Granulocyte % (Auto) 1.2 % Immature Granulocyte # (Auto) 0.08 K/uL Platelet Estimate DECREASED DECREASED Prothrombin Time 21.0 SECONDS 16.6 SECONDS 15.4 SECONDS Prothromb Time International Ratio 2.0 1.6 1.5 Activated Partial Thromboplast Time 31.3 SECONDS Partial Thromboplastin Ratio 1.2 Sodium Level 139 mmol/L 140 mmol/L Potassium Level 4.4 mmol/L 3.8 mmol/L Chloride Level 104 mmol/L 106 mmol/L Carbon Dioxide Level 33 mmol/L 31 mmol/L Anion Gap 2.0 mmol/L 3.0 mmol/L Blood Urea Nitrogen 19 mg/dl 17 mg/dl Creatinine 1.22 mg/dl 1.04 mg/dl Est Creatinine Clear Calc Drug Dose 55.2 ml/min 64.8 ml/min Estimated GFR () 65.9 79.9 Estimated GFR (Non- 56.8 68.9 BUN/Creatinine Ratio 15.4 15.9 Random Glucose 96 mg/dl 87 mg/dl Calcium Level 8.4 mg/dl 8.1 mg/dl Total Bilirubin 0.5 mg/dl Direct Bilirubin 0.1 mg/dl Aspartate Amino Transf (AST/SGOT) 32 U/L Alanine Aminotransferase (ALT/SGPT) 45 U/L Alkaline Phosphatase 76 U/L Total Protein 7.3 gm/dl Albumin 3.8 gm/dl Urine Color YELLOW Urine Appearance CLEAR Urine pH 5.5 Urine Specific Haywood 1.013 Urine Protein NEG Urine Glucose (UA) NEG Urine Ketones NEG Urine Occult Blood NEG Urine Nitrite NEG Urine Bilirubin NEG Urine Urobilinogen NEG Urine Leukocyte Esterase NEG Magnesium Level 2.3 mg/dl EKG: Sinus rhythm with a left bundle branch block pattern Telemetry reviewed: Sinus rhythm, no significant arrhythmias An echocardiogram was done 01/31/2017, this showed a dilated left ventricle with mild concentric left ventricular hypertrophy and a left ventricular ejection fraction of 35-40%. He had aortic sclerosis without stenosis and trace mitral regurgitation. Assessment & Plan #1. Hip fracture: It sounds as though this was a mechanical fall, there appears to be no evidence that he had an arrhythmia leading to his fall. I did not interrogate his device. His rhythm has been stable here. #2. Surgical risk: He is obviously at some surgical risk due to his left ventricular dysfunction, coronary artery disease and valve replacement as well as the possibility of an arrhythmia but he has an ICD in place. I believe he should have his hip replaced despite the risk. I would be careful with fluids during the procedure since he may be prone to congestive heart failure but that has not been much more problem for him recently. I would monitor his rhythm during and after surgery. His ICD could be inhibited with a magnet if desired or you short bursts of cautery to avoid activating the device. We will continue to follow him after surgery. Thank you for allowing me to participate in his care.
--- NOTE | 2017-06-25 15:00 | NUR ---
A: Pt taken to OR via bed. Pt assessed prior to leaving. For full assessment see EMR. Will await Pt's return from OR
[2017-06-25] MEDS ORDERED: MIDAZOLAM HCL 1 MG/ML 2ML VIAL ONE (15:09)
[2017-06-25] MEDS ORDERED: FENTANYL CITRATE INJ 50 MCG/1 ML 2 ML VIAL ONE ×2 (15:09→15:40)
[2017-06-25] MEDS ORDERED: PROPOFOL IV EMULSION 10 MG/ML 20 ML VIAL IV ONE (15:09)
[2017-06-25] MEDS ORDERED: POVIDONE-IODINE OP SOLN 30 ML BTL ONE (15:33)
[2017-06-25] MEDS ORDERED: BACITRACIN 50000 UNIT VIAL ONE (15:33)
[2017-06-25] MEDS ORDERED: THROMBIN 5000 UNITS KIT ONE (15:34)
--- NOTE | 2017-06-25 16:29 | History & Physical Bridge Note ---
H&P Re-Evaluation Bridge Note: I have examined the patient, reviewed the History & Physical and in the interval since the performance of the History & Physical I have noted the following changes of clinical significance: No changes noted
[2017-06-25] MEDS ORDERED: ONDANSETRON INJ 2 MG/ML 2 ML VIAL ONE (17:27)
[2017-06-25] MEDS ORDERED: DEXAMETHASONE SOD INJ 4 MG/ML VIAL ONE (17:27)
[2017-06-25] MEDS ORDERED: LIDOCAINE HCL 2% 2 ML VIAL (20MG/ML) ONE (17:27)
[2017-06-25] MEDS ORDERED: ROCURONIUM BROMIDE 10 MG/ML 5 ML VIAL IV ONE (17:27)
[2017-06-25] MEDS ORDERED: NEOSTIGMINE METHYLSULFATE 5 MG/5 ML SYR ONE ×2 (17:27→19:05)
[2017-06-25] MEDS ORDERED: GLYCOPYRROLATE INJ 0.2 MG/ML VIAL ONE (17:27)
[2017-06-25] MEDS ORDERED: PHENYLEPHRINE 100MCG/ML 5ML SYR ONE (17:28)
[2017-06-25] MEDS ORDERED: LABETALOL HCL IV 5 MG/ML 20ML IV PRN (17:30)
[2017-06-25] MEDS ORDERED: ONDANSETRON INJ 2 MG/ML 2 ML VIAL IV PRN (17:30)
[2017-06-25] MEDS ORDERED: FENTANYL CITRATE INJ 50 MCG/1 ML 2 ML VIAL IV PRN (17:30)
[2017-06-25] MEDS ORDERED: HYDROmorphone INJ 1 MG/ML SYR IV PRN (17:30)
[2017-06-25] MEDS ORDERED: ATROPINE SULFATE 0.1 MG/ML 5ML SYR IV PRN (17:30)
[2017-06-25] MEDS ORDERED: MEPERIDINE HCL 25 MG/ML CARP IV PRN (17:30)
[2017-06-25] MEDS ORDERED: EpHEDrine SULFATE INJ 50 MG/ML AMP IV PRN (17:30)
[2017-06-25] MEDS ORDERED: PHENYLEPHRINE HCL INJ 10 MG/ML VIAL ONE (18:40)
--- NOTE | 2017-06-25 18:54 | [facility] Post Operative Brief Note ---
Immediate Operative Summary Operative Date Jun 25, 2017. Pre-Operative Diagnosis Displaced left femoral neck fracture Post-Operative Diagnosis Displaced left femoral neck fracture Procedure(s) Performed Cemented Bipolar Hemiarthroplasty Hip Prosthesis Left Surgeon Dr. Harkins Pigment Supplier Surgeon(s) Jayant Jeffers PA-C Estimated Blood Loss 250 ML Findings displaced femoral neck fracture with some posterior neck comminution Specimens Permanent Specimen A. Left femoral Head. Drains 2 hemovac Anesthesia general Complication(s) None Disposition Recovery Room / PACU
--- NOTE | 2017-06-25 19:50 | DIAGNOSTIC IMAGING REPORT ---
SINGLE VIEW PELVIS; SINGLE VIEW LEFT HIP CLINICAL HISTORY: Postoperative examination. FINDINGS: An AP portable view of the hips and pelvis with a crosstable lateral portable view of the left hip are obtained. A unipolar left hip arthroplasty is in near-anatomic alignment. No acute fracture is identified. There are expected postoperative changes overlying the left hip including skin clips, subcutaneous gas, a surgical drain, and soft tissue swelling. Moderate to advanced arthritic change is seen in the right hip. There is advanced atherosclerotic calcification of the femoral arteries. Surgical clips project over the groin bilaterally. IMPRESSION: Expected postoperative findings status post left hip arthroplasty. No acute fracture is seen. Electronically signed by: Corwin Jimenez M.D. 06/25/2017 7:48 PM Dictated Date/Time: 06/25/2017 7:47 PM
--- NOTE | 2017-06-25 20:15 | NUR ---
A: Patient arrived back to room 203 from OR around 2009. Received report from Debra CASAS in PACU. Patient drowsy upon arrival but does respond to minimal tactile stimuli - oriented to person only. Left hip dressing intact with small amount of shadowing present. Hemovac intact with bloody drainage. EZ wrap on left hip. SCDs on patient. Sandoval patent and draining. Tele monitor applied. Call miner within reach. Bed alarm on for safety. Will frequently monitor patient. Addendum: 06/26/17 at 0031 by Veda Barrow RN Patient breathing through his mouth and oxygen saturations maintaining mid 80s on 4L NC - patient placed on 5L Oxymask. Will monitor.
--- NOTE | 2017-06-25 20:33 | Anesthesiology Progress Note ---
Anesthesia Post Op Note Date & Time Jun 25, 2017 at 20:33 Vital Signs Pain Intensity: 0 Vital Signs Past 12 Hours Date Time Temp Pulse Resp B/P (MAP) Pulse Ox O2 Delivery O2 Flow Rate FiO2 06/25/17 20:15 36.1 64 20 127/62 (83) 90 Nasal Cannula 4.0 06/25/17 20:05 36.1 66 20 98/62 94 Nasal Cannula 4 06/25/17 19:55 68 21 97/64 93 Nasal Cannula 4 06/25/17 19:45 68 19 106/65 95 Nasal Cannula 4 06/25/17 19:35 66 18 109/69 93 Nasal Cannula 4 06/25/17 19:28 36.1 68 16 106/64 93 Non-Rebreather 10 06/25/17 15:02 37.1 65 16 113/68 (83) 95 Nasal Cannula 2 06/25/17 15:00 Nasal Cannula 2.0 06/25/17 12:27 36.8 62 18 122/57 (78) 98 06/25/17 12:00 Nasal Cannula 2.0 06/25/17 12:00 59 21 128/54 (80) 06/25/17 11:45 61 22 98/70 (75) 93 06/25/17 11:30 63 18 122/57 (82) 92 06/25/17 11:15 61 21 138/59 (78) 95 06/25/17 11:00 62 25 126/56 (88) 96 06/25/17 10:45 62 20 95 06/25/17 10:43 63 22 121/58 (88) 95 06/25/17 10:40 36.9 62 17 121/58 95 2.0 06/25/17 10:30 64 21 06/25/17 09:26 65 19 120/61 (80) 92 Room Air Notes Mental Status: alert / awake / arousable, participated in evaluation Pt Amnestic to Procedure: Yes Nausea / Vomiting: adequately controlled Pain: adequately controlled Airway Patency, RR, SpO2: stable & adequate BP & HR: stable & adequate Hydration State: stable & adequate Anesthetic Complications: no major complications apparent
[2017-06-25] MEDS: DOCUSATE SODIUM 100 MG CAP PO SCH (20:41)
[2017-06-25] MEDS: TAMSULOSIN HCL 0.4 MG CAP PO SCH (20:42)
[2017-06-25] MEDS: DOCUSATE SODIUM/SENNA 50/8.6MG TAB PO SCH (20:42)
[2017-06-25] MEDS: PRAVASTATIN SOD 40 MG TAB PO SCH (20:42)
--- NOTE | 2017-06-25 23:15 | NUR ---
A: Patient resting in bed - repositioning himself at times. Left hip dressing saturated in blood, left thigh swollen. Vital signs stable. Still drowsy but easily arouses. Sandoval patent and draining. Call miner within reach. Will frequently monitor patient.
--- NOTE | 2017-06-25 23:47 | NUR ---
Spoke w/ Dr Sethi. Instructed to change left hip dressing and continue to monitor patient. Will follow MD orders.
[2017-06-26] VITALS (9 sets, daily range): BP systolic 92–120; BP diastolic 40–62; PULSE 60–76; TEMP 36.4–37.1; O2SAT 92–100
--- NOTE | 2017-06-26 | NUR ---
Left hip dressing changed per MD order. Patient arousable and currently oriented to person, month, and event. Pacing 60s on tele. Pulse ox maintaining low to mid 90s on 5L Oxymask. Fresh ice applied to left hip. Will continue to monitor.
[2017-06-26] MEDS: CEFAZOLIN IV 2,000 MG in SYRINGE 0 ML IV SCH ×3 (01:27→18:40)
--- NOTE | 2017-06-26 03:36 | NUR ---
A: Patient resting in bed - oriented x4 this AM and denies any complaints. Patient able to reposition himself in bed. Left him dressing is dry and intact - fresh EZ wrap on. Hemovac intact with bloody drainage. SR 60s on tele. Spo2 maintaining low 90s on 6L NC. Sandoval patent. Call miner within reach. Bed alarm on. Will monitor.
[2017-06-26 05:50] LABS: HEMATOCRIT 31.2 % (42-52); HEMOGLOBIN 9.6 g/dL (14.0-18.0); MEAN CELL VOLUME 91.8 fL (80-100); MEAN CORPUSCULAR HEMOGLOBIN 28.2 pg (25-34); MEAN CORPUSCULAR HGB CONC 30.8 g/dl (32-36); RED CELL DISTRIBUTION WIDTH CV 17.4 % (11.5-14.5); WHITE BLOOD COUNT 6.83 K/uL (4.8-10.8)
[2017-06-26 05:51] LABS: MEAN PLATELET VOLUME 10.4 fL (7.4-10.4); PLATELET COUNT 79 K/uL (130-400)
[2017-06-26] MEDS: LEVOTHYROXINE 25 MCG TAB PO SCH (05:55)
[2017-06-26 06:01] LABS: INR 1.5 (0.9-1.1)
[2017-06-26 06:25] LABS: CALCIUM 7.9 mg/dl (8.5-10.1); CREATININE 1.12 mg/dl (0.60-1.40); POTASSIUM 4.7 mmol/L (3.5-5.1)
--- NOTE | 2017-06-26 07:38 | OPERATIVE REPORT ---
DATE OF OPERATION: 06/25/2017 INDICATION FOR PROCEDURE: A 77-year-old male who suffered a left hip fracture. He has multiple medical problems. It was on anticoagulation with Coumadin, but this was reversed including use of fresh frozen plasma. His INR was less than or equal to 1.5. His radiographs demonstrate he has a femoral neck fracture, displaced, some comminution of the posterior neck. He has a stove pipe canal with poor cortices. PREOPERATIVE DIAGNOSES: Displaced left femoral neck fracture and multiple medical comorbidities. POSTOPERATIVE DIAGNOSIS: Same. PROCEDURE: Cemented bipolar hemiarthroplasty, left hip. SURGEON: Dr. Harkins. CHUTE MAN: Jayant Jeffers PA-C. ANESTHESIA: General. OPERATIVE PROCEDURE: The patient was taken to the operating room, he had A-line general anesthetic. She was placed supine on the operating room table on a sacral pad. His left foot was placed on a foot roll to flex his knee 90 degrees, hip 60 degrees. His left lower extremity and hip area were prepped and draped with ChloraPrep in the usual sterile fashion. A lateral Hardinge type approach was performed to the left hip. A lateral incision was made over the left hip. Skin was incised sharply. Subcutaneous tissues were divided down to the fascia and subcutaneous flaps were elevated. The fascia edward was divided longitudinally and the gluteus elijah fascia was split proximally. The gluteus medius was noted to be intact. Some the trochanteric bursa was resected. The gluteus medius was split between its anterior 40% and posterior 60%. This was split down to the minimus, which was divided and reflected off the capsule. The capsule was divided into the joint and hemarthrosis was evacuated. Incision was made through the gluteus medius tendon leaving a cuff of tissue for repair on the trochanter and then the vastus lateralis was split for 3 cm. Muscular capsular flap was elevated off the hip joint. This revealed the fracture. We did flexion and external rotation to expose the fractured neck. The neck had some posterior neck comminution. The anterior lateral posterior neck was all intact. I made a femoral neck cut 15 mm proximal to the lesser trochanter in neutral anteversion. Then the comminuted fragments were removed. I used a hip skid and a corkscrew type device to remove the femoral head and neck fragment. The head was measured at 52 mm diameter. The ligamentum teres was resected and then we did a trial reduction with the 52 trial and this had tight suction fit. The trial was then removed and then proceeded to prepare the femoral shaft for the implant. I first used a box osteotome followed by a canal reamer which easily went down the canal so it was fairly wide open. Then I did sequential broaches up to a 6, which had appropriate fit and fill for cemented device. I did a trial reduction and -3 neck length gave appropriate tension on the soft tissues. He had equal leg lengths and complete stability through a trial range of motion. Then the trial was removed. The canal was irrigated with antibiotic solution with bacitracin, placed a cement restrictor at the appropriate depth distal to the implant. Then after further irrigation and using a tampon to dry the canal we cemented the stem which was the Lester Accolade C size 6 stem with 127 degree neck angle. The implant was held in position until the cement cured and then we did do a Betadine soak of the entire joint soft tissues and then irrigated this out with antibiotic solution and bacitracin and placed on the 26 mm cobalt chromium -3 neck length femoral head and then the bipolar VH1 52 mm bipolar snapped onto that and this was reduced to the acetabulum. Stability was verified and after copious irrigation, the capsule was then repaired with liyfek-uh-fahlf #1 Vicryl sutures. The minimus was repaired with qvsupu-kr-jokel #1 Vicryl sutures. The medius was repaired with transosseous #5 FiberWire sutures using Zia-Elio suture technique and lateral row soft tissue scewga-lk-orkma #2 FiberWire sutures. The split in the medius repaired with ljlagk-xf-eprbs #1 Vicryl. The split in the vastus lateralis repaired with ofpuee-nb-cumrp #1 Vicryl. The fascia edward and the gluteus elijah fascia was repaired with liryvl-on-ppieo #1 Vicryl sutures. The subcutaneous tissues were closed with large #2 Vicryl to close the space and then 2-0 Vicryl then melanie. We did close this over 2 Hemovac drains were brought out laterally. The skin was closed with melanie. Sterile dressings were applied and we did use OpSite due to some questionable adhesive allergy. The patient had about 250 mL of blood loss and tolerated the procedure well. SOTO Gonzales was first coat sander and functioned as first coat sander throughout the entire procedure. He assisted in patient positioning, prepping, draping, leg positioning, soft tissue retraction, instrument management, and he did repair the outer fascial layer, subcutaneous skin and will participate in postoperative care of the patient. I attest to the content of the Intraoperative Record and any orders documented therein. Any exception s are noted below.
--- NOTE | 2017-06-26 08:09 | Hospitalist Progress Note ---
Hospitalist Progress Note Date of Service Jun 26, 2017. Subjective Pt evaluation today including: conversation w/ patient, physical exam, chart review, lab review, review of studies, conversation w/ security sales consultant (Orthopedics) , review of inpatient medication list Patient seen and evaluated. No acute events overnight. He is S/P Cemented Bipolar Hemiarthroplasty. Reporting no pain currently and does not appear in any distress. Requiring increased O2 but denies SOB. CXR appears unchanged and no signs of fluid overload. Verbalizes no complaints at this time. Constitutional: No fever, No chills Respiratory: No cough, No shortness of breath Cardiovascular: No chest pain, No palpitations Abdomen: No pain, No nausea, No vomiting, No diarrhea, No constipation Musculoskeletal: No joint pain, No swelling, No calf pain Heme: No abnormal bleeding/bruising Medications Current Inpatient Medications Medications (Trade) Dose Ordered Sig/Deion Route Start Time Stop Time Status Last Admin Dose Admin Al Hydrox/Mg Hydrox/Simethicone (Maalox Max Susp) 15 ml Q4H PRN PO 06/24/17 16:15 07/24/17 16:14 Magnesium Hydroxide (Milk Of Magnesia Susp) 30 ml Q12H PRN PO 06/24/17 16:15 07/24/17 16:14 Ondansetron HCl (Zofran Inj) 4 mg Q6H PRN IV 06/24/17 16:15 07/24/17 16:14 Naloxone HCl (Narcan Inj) 0.1 mg PRN PRN IV 06/24/17 16:15 07/24/17 16:14 Senna/Docusate Sodium (Senokot S Tab) 2 tab HS PO 06/24/17 21:00 07/24/17 20:59 06/24/17 20:43 2 TAB Polyethylene (Miralax Powder Packet) 17 gm DAILY PRN PO 06/24/17 16:15 07/24/17 16:14 Magnesium Hydroxide (Milk Of Magnesia Susp) 30 ml DAILY PRN PO 06/24/17 16:15 07/24/17 16:14 Bisacodyl (Dulcolax Supp) 10 mg DAILY PRN SC 06/24/17 16:15 07/24/17 16:14 Sodium Biphosphate/ Sodium Phosphate (Fleet Enema) 132 ml PRN PRN SC 06/24/17 16:15 Amiodarone HCl (Cordarone Tab) 200 mg QAM PO 06/25/17 09:00 07/25/17 08:59 06/25/17 09:30 200 MG Docusate Sodium (coLACE CAP) 100 mg QPM PO 06/24/17 21:00 07/24/17 20:59 06/24/17 20:43 100 MG Famotidine (Pepcid Tab) 20 mg QAM PO 06/25/17 09:00 07/25/17 08:59 06/25/17 09:29 20 MG Levothyroxine Sodium (Synthroid Tab) 25 mcg DAILYBB PO 06/25/17 06:00 07/25/17 05:59 06/26/17 05:55 25 MCG Nitroglycerin (Nitrostat Tab) 0.4 mg PRN PRN UT 06/24/17 16:15 07/24/17 16:14 Pravastatin Sodium (Pravachol Tab) 40 mg HS PO 06/24/17 21:00 07/24/17 20:59 06/24/17 20:43 40 MG Tamsulosin HCl (Flomax Cap) 0.4 mg HS PO 06/24/17 21:00 07/24/17 20:59 06/24/17 20:43 0.4 MG Acetaminophen 1000 mg/Empty Bag 100 ml @ 400 mls/hr Q8H PRN IV 06/24/17 16:30 07/24/17 16:29 06/25/17 09:28 400 MLS/HR Morphine Sulfate (MoRPHine SULFATE INJ) 1 mg Q2H PRN IV 06/24/17 16:30 07/08/17 16:29 06/25/17 06:10 1 MG Hydralazine HCl (HydrALAZINE INJ) 10 mg Q6 PRN IV. 06/24/17 17:30 07/24/17 17:29 Metoprolol Succinate (Toprol Xl Tab) 50 mg QAM PO 06/25/17 09:00 07/25/17 08:59 06/25/17 09:29 50 MG Cefazolin Sodium 2000 mg/Syringe 10 ml @ 2.5 mls/min Q8H IV 06/26/17 02:00 06/27/17 01:59 06/26/17 01:27 2.5 MLS/MIN Objective Vital Signs Date Time Temp Pulse Resp B/P (MAP) Pulse Ox O2 Delivery O2 Flow Rate FiO2 06/26/17 07:31 36.9 66 18 92/40 (57) 92 Nasal Cannula 6.0 06/26/17 04:35 37.1 64 19 120/62 (81) 95 Nasal Cannula 6.0 06/26/17 03:36 95 Nasal Cannula 6.0 06/26/17 00:15 36.4 60 16 100/48 (65) 100 Nasal Cannula 5.0 06/26/17 00:00 94 Oxymask 5.0 06/25/17 22:07 90 18 112/51 (71) 95 Oxymask 5.0 06/25/17 21:15 36.4 63 20 125/45 (71) 94 Oxymask 5.0 06/25/17 20:42 64 20 118/53 (74) 90 Oxymask 5.0 06/25/17 20:15 36.1 64 20 127/62 (83) 90 Nasal Cannula 4.0 06/25/17 20:15 Oxymask 5.0 06/25/17 20:05 36.1 66 20 98/62 94 Nasal Cannula 4 06/25/17 19:55 68 21 97/64 93 Nasal Cannula 4 06/25/17 19:45 68 19 106/65 95 Nasal Cannula 4 06/25/17 19:35 66 18 109/69 93 Nasal Cannula 4 06/25/17 19:28 36.1 68 16 106/64 93 Non-Rebreather 10 06/25/17 15:02 37.1 65 16 113/68 (83) 95 Nasal Cannula 2 06/25/17 15:00 Nasal Cannula 2.0 06/25/17 12:27 36.8 62 18 122/57 (78) 98 06/25/17 12:00 Nasal Cannula 2.0 06/25/17 12:00 59 21 128/54 (80) 06/25/17 11:45 61 22 98/70 (75) 93 06/25/17 11:30 63 18 122/57 (82) 92 06/25/17 11:15 61 21 138/59 (78) 95 06/25/17 11:00 62 25 126/56 (88) 96 06/25/17 10:45 62 20 95 06/25/17 10:43 63 22 121/58 (88) 95 06/25/17 10:40 36.9 62 17 121/58 95 2.0 06/25/17 10:30 64 21 06/25/17 09:26 65 19 120/61 (80) 92 Room Air 06/25/17 08:26 37.0 65 18 91/55 (67) 96 Physical Exam General Appearance: WD/WN, no apparent distress Eyes: sclerae normal ENT: hearing grossly normal, + muffled/hoarse voice (chronic) Neck: supple, no JVD, trachea midline Respiratory/Chest: lungs clear, normal breath sounds, no respiratory distress, no accessory muscle use Cardiovascular: regular rate, rhythm Abdomen: normal bowel sounds, non tender, soft Extremities: no pedal edema, + pertinent finding (dressing to L hip C/D/I and drain in place) Neurologic/Psychiatric: alert, oriented x 3 Skin: normal color, warm/dry Laboratory Results Last 24 Hours Test 06/25/17 12:03 06/26/17 05:11 Prothrombin Time 15.4 SECONDS 15.3 SECONDS Prothromb Time International Ratio 1.5 1.5 White Blood Count 6.83 K/uL Red Blood Count 3.40 M/uL Hemoglobin 9.6 g/dL Hematocrit 31.2 % Mean Corpuscular Volume 91.8 fL Mean Corpuscular Hemoglobin 28.2 pg Mean Corpuscular Hemoglobin Concent 30.8 g/dl RDW Standard Deviation 59.0 fL RDW Coefficient of Variation 17.4 % Platelet Count 79 K/uL Mean Platelet Volume 10.4 fL Sodium Level 141 mmol/L Potassium Level 4.7 mmol/L Chloride Level 104 mmol/L Carbon Dioxide Level 32 mmol/L Anion Gap 5.0 mmol/L Blood Urea Nitrogen 20 mg/dl Creatinine 1.12 mg/dl Est Creatinine Clear Calc Drug Dose 62.8 ml/min Estimated GFR () 73.0 Estimated GFR (Non- 63.0 BUN/Creatinine Ratio 17.4 Random Glucose 128 mg/dl Calcium Level 7.9 mg/dl Magnesium Level 2.4 mg/dl Assessment and Plan Mr. Garcia is a 77 y/o male with PMHx of CAD S/P CABG, Aortic Dissection S/P Repair, Aortic Valve Replacement x 3 (Mechanical to Cadaver to Current Bovine), S/P Pacer/ICD, AAA measuring 6.1 cm, Systolic CHF with EF 35-40%, CKD Stage III , Peripheral Vascular Disease, Atrial Fibrillation, L Renal Mass, Transverse Myelitis, and Hypothyroidism who presents to the ED c/o fall resulting in L hip pain. L Hip Fracture S/P L Cemented Bipolar Hemiarthroplasty on 06/25: - Tylenol 1 g IV Q8H PRN and will leave opiate medications on board - patient wants to avoid opioid medications - INR at 1.5 - and home dosing of warfarin restarted - Orthopedics following - discussed with Jayant Jeffers this AM - approving reinstitution of Coumadin Extensive Cardiac History: - CAD S/P CABG, Aortic Dissection S/P Repair, AAA at 6.1 cm, AVR x 3 (Current Bovine), Atrial Fibrillation, S/P Pacer/ICD, Systolic CHF EF 35-40% - Amiodarone 200 mg daily and Toprol-XL reduced to 50 mg daily - Hold further fluids as he is taking in good oral intake. Due to lower BP readings will assess on 06/27 for reinstitution of Bumex CKD Stage III: STABLE - Continue to monitor kidney function especially after surgical intervention - avoid nephrotoxic agents when able L Renal Mass: Concerning for RCC - STABLE - Patient has only opted for minimal intervention for this renal mass - he was supposed to have cryotherapy done by urology however needed clearance due to his AAA; per review of outpatient records states he was seen by Dr. Dunaway who states no repair was necessary at this time - urology plans to perform procedure in August 2017 Transverse Myelitis: STABLE - Patient reports no worsening of issues prior to this fall - states his left leg is more "gimpy" compared to his right leg Hypothyroidism: - Synthroid 25 mcg daily DVT Prophylaxis: SCDs Code Status: DO NOT RESUSCITATE Disposition: - PT/OT evaluations - Patient from home normally ambulates in-house without assistance but has walker/cane for travel outside of home - Will continue to monitor on telemetry given cardiac history - monitor hemodynamics and volume status Continued [facility] stay due to: multiple IV medications needed Discharge planning: uncertain
--- NOTE | 2017-06-26 08:18 | DIAGNOSTIC IMAGING REPORT ---
CHEST ONE VIEW PORTABLE HISTORY: Hypoxia COMPARISON: Chest 06/24/2017. FINDINGS: The heart remains mildly enlarged. Left-sided pacemaker and poststernotomy changes. Small left pleural effusion and left basilar densities persist. Linear density within the right lower lung zone favor subsegmental atelectasis. Mild elevation of the left hemidiaphragm, unchanged. Mild central pulmonary vascular congestion without overt edema. This is similar to the prior study. IMPRESSION: 1. No change compared to the prior study. 2. Small left pleural effusion and elevated left hemidiaphragm persists. 3. There is mild central pulmonary vascular congestion without overt edema. Electronically signed by: Hugh Freeman M.D. 06/26/2017 8:17 AM Dictated Date/Time: 06/26/2017 8:15 AM
--- NOTE | 2017-06-26 08:26 | Anesthesiology Progress Note ---
Anesthesia Post Op Note Date & Time Jun 26, 2017 at 08:26 Vital Signs Pain Intensity: 0.0 Vital Signs Past 12 Hours Date Time Temp Pulse Resp B/P (MAP) Pulse Ox O2 Delivery O2 Flow Rate FiO2 06/26/17 07:31 36.9 66 18 92/40 (57) 92 Nasal Cannula 6.0 06/26/17 04:35 37.1 64 19 120/62 (81) 95 Nasal Cannula 6.0 06/26/17 03:36 95 Nasal Cannula 6.0 06/26/17 00:15 36.4 60 16 100/48 (65) 100 Nasal Cannula 5.0 06/26/17 00:00 94 Oxymask 5.0 06/25/17 22:07 90 18 112/51 (71) 95 Oxymask 5.0 06/25/17 21:15 36.4 63 20 125/45 (71) 94 Oxymask 5.0 06/25/17 20:42 64 20 118/53 (74) 90 Oxymask 5.0 Notes Mental Status: alert / awake / arousable, participated in evaluation Pt Amnestic to Procedure: Yes Nausea / Vomiting: adequately controlled Pain: adequately controlled Airway Patency, RR, SpO2: stable & adequate BP & HR: stable & adequate Hydration State: stable & adequate Anesthetic Complications: no major complications apparent
--- NOTE | 2017-06-26 08:28 | Orthopedic Progress Note ---
Orthopedic Progress Note Date of Service Jun 26, 2017. Subjective Post OP Day: 1 Reports: feeling well, pain controlled w PO medications, Denies: complaints, chest pain, SOB, nausea / vomiting, light headedness, calf pain Additional Notes: Per nursing, dressings became saturated last PM, so changed Objective calves soft nontender, N/V intact, hip located, capillary refill less than 2 sec., dressing C/D/I, A&O x3, toes mobile Date Time Temp Pulse Resp B/P (MAP) Pulse Ox O2 Delivery O2 Flow Rate FiO2 06/26/17 07:31 36.9 66 18 92/40 (57) 92 Nasal Cannula 6.0 06/26/17 04:35 37.1 64 19 120/62 (81) 95 Nasal Cannula 6.0 06/26/17 03:36 95 Nasal Cannula 6.0 06/26/17 00:15 36.4 60 16 100/48 (65) 100 Nasal Cannula 5.0 06/26/17 00:00 94 Oxymask 5.0 06/25/17 22:07 90 18 112/51 (71) 95 Oxymask 5.0 06/25/17 21:15 36.4 63 20 125/45 (71) 94 Oxymask 5.0 06/25/17 20:42 64 20 118/53 (74) 90 Oxymask 5.0 06/25/17 20:15 36.1 64 20 127/62 (83) 90 Nasal Cannula 4.0 06/25/17 20:15 Oxymask 5.0 06/25/17 20:05 36.1 66 20 98/62 94 Nasal Cannula 4 06/25/17 19:55 68 21 97/64 93 Nasal Cannula 4 06/25/17 19:45 68 19 106/65 95 Nasal Cannula 4 06/25/17 19:35 66 18 109/69 93 Nasal Cannula 4 06/25/17 19:28 36.1 68 16 106/64 93 Non-Rebreather 10 06/25/17 15:02 37.1 65 16 113/68 (83) 95 Nasal Cannula 2 06/25/17 15:00 Nasal Cannula 2.0 06/25/17 12:27 36.8 62 18 122/57 (78) 98 06/25/17 12:00 Nasal Cannula 2.0 06/25/17 12:00 59 21 128/54 (80) 06/25/17 11:45 61 22 98/70 (75) 93 06/25/17 11:30 63 18 122/57 (82) 92 06/25/17 11:15 61 21 138/59 (78) 95 06/25/17 11:00 62 25 126/56 (88) 96 06/25/17 10:45 62 20 95 06/25/17 10:43 63 22 121/58 (88) 95 06/25/17 10:40 36.9 62 17 121/58 95 2.0 06/25/17 10:30 64 21 06/25/17 09:26 65 19 120/61 (80) 92 Room Air 06/25/17 08:26 37.0 65 18 91/55 (67) 96 Laboratory Results 24 Hours: Test 06/25/17 12:03 06/26/17 05:11 Prothromb Time International Ratio 1.5 1.5 Prothrombin Time 15.4 SECONDS 15.3 SECONDS Hematocrit 31.2 % Hemoglobin 9.6 g/dL Assessment & Plan Assessment: POD #1 Left hip bipolar hemiarthroplasty Plan: PT/ OT DVT proph- Coumadin D/C Planning- Rehab As per primary team.
[2017-06-26] MEDS: FAMOTIDINE 20 MG TAB PO SCH (08:42)
[2017-06-26] MEDS: AMIODARONE 200 MG TAB PO SCH (08:44)
[2017-06-26] MEDS: METOPROLOL SUCC 50MG EXT REL TAB PO SCH (08:47)
--- NOTE | 2017-06-26 09:49 | NUR ---
case management note. spoke with pt at bedside. pt states he is planning to go to [facility] at D/C. referral was completed yesterday. pt had surgery yesterday. PT/OT evals are pending. case management to follow.
[2017-06-26] MEDS ORDERED: SODIUM CHLORIDE 0.9% 500ML 500 ML IV SCH (14:15)
--- NOTE | 2017-06-26 16:00 | NUR ---
A: Assessment completed, full assessment in the EMR. Patient is resting comfortably at this time with family at the bedside. Denies any pain or discomfort. Dressing to left leg is clean/dry/intact with hemovac intact. No other needs at this time, call miner within reach.
[2017-06-26] MEDS: WARFARIN SOD 2.5 MG TAB PO SCH (17:16)
--- NOTE | 2017-06-26 18:34 | Cardiology Follow-Up ---
Subjective Date of Service: Jun 26, 2017. Pt evaluation today including: conversation w/ patient, conversation w/ family , physical exam, lab review, review of inpatient medication list History of Present Illness This is a very pleasant 77-year-old gentleman with a long and complex cardiovascular history. In brief, he had a type A dissection in May of 2001, he had emergency transfer to [facility] and had a repair of the ascending aorta with a graft and a [address] Toni mechanical valve. Postoperatively he had severe aortic insufficiency, was reexplored for cardiac tamponade and mediastinal bleeding and had hemostasis obtained at that time. 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 Postoperatively he did have atrial fibrillation. He required redo aortic valve replacement in September of 2001 for a perivalvular leak and had a [employer] cadaver valve as well as single vessel bypass surgery performed at that time. His ejection fraction was 35% in September 2001 and he had an ICD subsequently implanted April 09, 2002 (Medtronic model 7274). This was replaced October 13, [address] Toni model V258, this also reached [facility] and was replaced on October 27, [address] Toni Ellipse which remains in place. I believe he required repeat aortic valve replacement surgery at [facility] June 28, 2008, and on November 23, 2008 he had an abdominal aortic aneurysm repair at [facility]. An echocardiogram November 02, 2012 showed mild left ventricular dilatation and with an ejection fraction of 45 % with a properly functioning aortic valve. He he also has atrial arrhythmias identified following being seen acutely on April 25, 2010 with significant fluid retention and weight gain. He was diuresed with improvement in his symptoms and decrease in his fluid retention. He was seen for ICD followup on June 14, 2010, at that time ICD diagnostics demonstrated atrial flutter starting around April 06, 2010. It is likely that this rhythm change was a component of his development of fluid retention. I started him on warfarin anticoagulation at that time and scheduled him for cardioversion which was performed on 07/23/2010. I believe he has remained in sinus rhythm since on amiodarone and warfarin. On 06/24/2017 he slipped and fell, breaking his left hip. He reports that he tripped and did not lose consciousness, had no lightheadedness or dizziness leading to the fall. He has had no cardiovascular symptoms, no angina and he is been quite active until this happened. He had hip surgery yesterday and feels quite well today. Only minor hip pain. Social History Smoking Status: Former Smoker History of Alcohol Use: No Review of Systems Respiratory: No cough, No shortness of breath Cardiac: No chest pain, No palpitations Left hip pain Medications Cardiovascular: Item Value Date Time Amiodarone HCl 200 mg 06/25/17 0900 (Cordarone Tab) QAM/PO 06/25/17 0930 Metoprolol 50 mg 06/25/17 0900 Succinate QAM/PO 06/25/17 0929 (Toprol Xl Tab) Pravastatin Sodium 40 mg 06/24/17 2100 (Pravachol Tab) HS/PO Objective Vital Signs Past 12 Hours Date Time Temp Pulse Resp B/P (MAP) Pulse Ox O2 Delivery O2 Flow Rate FiO2 06/26/17 07:31 36.9 66 18 92/40 (57) 92 Nasal Cannula 6.0 06/26/17 04:35 37.1 64 19 120/62 (81) 95 Nasal Cannula 6.0 06/26/17 03:36 95 Nasal Cannula 6.0 06/26/17 00:15 36.4 60 16 100/48 (65) 100 Nasal Cannula 5.0 06/26/17 00:00 94 Oxymask 5.0 06/25/17 22:07 90 18 112/51 (71) 95 Oxymask 5.0 06/25/17 21:15 36.4 63 20 125/45 (71) 94 Oxymask 5.0 06/25/17 20:42 64 20 118/53 (74) 90 Oxymask 5.0 06/25/17 20:15 36.1 64 20 127/62 (83) 90 Nasal Cannula 4.0 06/25/17 20:15 Oxymask 5.0 06/25/17 20:05 36.1 66 20 98/62 94 Nasal Cannula 4 Last Recorded Weight-Kilograms: 98.500 Physical Exam Constitutional: General Apperance: heathly-appearing Level of Distress: NAD Lungs: Respiratory effort: no dyspnea, good air movement Auscultation: breath sounds normal, no wheezing Cardiovascular: Heart Auscultation: RRR, no rubs, no gallops, II/ NORM, II/ WSM Peripheral Pulses: Bruits: none appreciated Extremities: no edema Data Laboratory Results: Last 24 Hours Test 06/25/17 12:03 06/26/17 05:11 Prothrombin Time 15.4 SECONDS 15.3 SECONDS Prothromb Time International Ratio 1.5 1.5 White Blood Count 6.83 K/uL Red Blood Count 3.40 M/uL Hemoglobin 9.6 g/dL Hematocrit 31.2 % Mean Corpuscular Volume 91.8 fL Mean Corpuscular Hemoglobin 28.2 pg Mean Corpuscular Hemoglobin Concent 30.8 g/dl RDW Standard Deviation 59.0 fL RDW Coefficient of Variation 17.4 % Platelet Count 79 K/uL Mean Platelet Volume 10.4 fL Sodium Level 141 mmol/L Potassium Level 4.7 mmol/L Chloride Level 104 mmol/L Carbon Dioxide Level 32 mmol/L Anion Gap 5.0 mmol/L Blood Urea Nitrogen 20 mg/dl Creatinine 1.12 mg/dl Est Creatinine Clear Calc Drug Dose 62.8 ml/min Estimated GFR () 73.0 Estimated GFR (Non- 63.0 BUN/Creatinine Ratio 17.4 Random Glucose 128 mg/dl Calcium Level 7.9 mg/dl Magnesium Level 2.4 mg/dl Telemetry reviewed: SR, no arrhythmia Assessment and Plan #1. Hip fracture: It sounds as though this was a mechanical fall, there appears to be no evidence that he had an arrhythmia leading to his fall. He is doing well from the cardiovascular standpoint after surgery. Agree with restarting warfarin. Thank you for allowing me to participate in his care.
[2017-06-26] MEDS: DOCUSATE SODIUM/SENNA 50/8.6MG TAB PO SCH (20:51)
[2017-06-26] MEDS: DOCUSATE SODIUM 100 MG CAP PO SCH (20:51)
[2017-06-26] MEDS: PRAVASTATIN SOD 40 MG TAB PO SCH (20:51)
[2017-06-26] MEDS: TAMSULOSIN HCL 0.4 MG CAP PO SCH (20:51)
--- NOTE | 2017-06-27 00:37 | NUR ---
aa&ox4,vss,dressing c/d/i,hemavac patent,denies current pain,call miner in reach,will continue to monitor
[2017-06-27] MEDS: ACETAMINOPHEN IV 1000MG/100ML IV PRN ×3 (03:41→23:40)
--- NOTE | 2017-06-27 04:00 | NUR ---
assessment unchanged,previously medicated for pain,repositioned,call mnier in reach,will continue to monitor
[2017-06-27 04:46] VITALS: BP 102/49; PULSE 83; TEMP 36.5; O2SAT 94
[2017-06-27 05:51] LABS: HEMATOCRIT 28.3 % (42-52); HEMOGLOBIN 8.7 g/dL (14.0-18.0); MEAN CELL VOLUME 91.3 fL (80-100); MEAN CORPUSCULAR HEMOGLOBIN 28.1 pg (25-34); MEAN CORPUSCULAR HGB CONC 30.7 g/dl (32-36); PLATELET COUNT 93 K/uL (130-400); RED CELL DISTRIBUTION WIDTH CV 17.8 % (11.5-14.5); RED CELL DISTRIBUTION WIDTH SD 59.6 fL (36.4-46.3); WHITE BLOOD COUNT 7.28 K/uL (4.8-10.8)
[2017-06-27 05:56] LABS: INR 1.5 (0.9-1.1)
[2017-06-27] MEDS: LEVOTHYROXINE 25 MCG TAB PO SCH (06:15)
[2017-06-27 06:19] LABS: CALCIUM 7.8 mg/dl (8.5-10.1); CREATININE 1.49 mg/dl (0.60-1.40); POTASSIUM 4.7 mmol/L (3.5-5.1)
[2017-06-27 07:30] VITALS: BP 92/42; PULSE 80; TEMP 37.2; O2SAT 78
--- NOTE | 2017-06-27 07:30 | NUR ---
A/ID: Pt seen and assessed. Pt awake, alert, and oriented x 4. Pt denied CP or SOB at this time. Pt repositioned in bed for comfort, will reposition Pt while in bed at least Q2H. For complete assessment see EMR. Pt is in bed at this time. Bed is in lowest position with two side rails up, call miner is within reach. Case management following with Pt for DC planning.
[2017-06-27] MEDS: FAMOTIDINE 20 MG TAB PO SCH (08:36)
[2017-06-27] MEDS: AMIODARONE 200 MG TAB PO SCH (08:36)
[2017-06-27] MEDS: METOPROLOL SUCC 50MG EXT REL TAB PO SCH (08:43)
--- NOTE | 2017-06-27 08:44 | Orthopedic Progress Note ---
Orthopedic Progress Note Date of Service Jun 27, 2017. Subjective Post OP Day: 2 Reports: feeling well, pain controlled w PO medications, Denies: complaints, chest pain, SOB, nausea / vomiting, light headedness, calf pain Objective calves soft nontender, N/V intact, hip located, capillary refill less than 2 sec., dressing C/D/I, incision C/D/I, A&O x3, toes mobile ON 3L O2 Date Time Temp Pulse Resp B/P (MAP) Pulse Ox O2 Delivery O2 Flow Rate FiO2 06/27/17 07:30 37.2 80 18 92/42 (59) 78 Nasal Cannula 3.0 Oxymask 06/27/17 04:46 36.5 83 17 102/49 (66) 94 Nasal Cannula 3.0 06/27/17 04:00 Nasal Cannula 2.0 06/27/17 00:00 Nasal Cannula 2.0 06/26/17 23:55 37.0 76 20 108/49 (68) 94 Nasal Cannula 3.0 06/26/17 20:19 Nasal Cannula 2.0 06/26/17 19:43 37.1 75 20 113/49 (70) 93 Nasal Cannula 2.0 06/26/17 16:00 Nasal Cannula 4.0 06/26/17 15:37 36.8 67 20 98/44 (62) 98 Nasal Cannula 4.0 06/26/17 12:00 Nasal Cannula 5.0 06/26/17 10:50 36.7 64 18 93/46 (62) 94 Nasal Cannula 6.0 Laboratory Results 24 Hours: Test 06/27/17 05:24 Hematocrit 28.3 % Hemoglobin 8.7 g/dL Prothromb Time International Ratio 1.5 Prothrombin Time 15.5 SECONDS Assessment & Plan Assessment: POD #2 Left hip bipolar hemiarthroplasty Plan: PT/ OT DVT proph- Coumadin D/C Planning- Rehab As per primary team. Drain pulled and dressing changed by me this AM.
--- NOTE | 2017-06-27 08:45 | NUR ---
Pt seen by Zeyad Skelton. Op site dressing changed and Hemovac removed. Pt tolerated well, no complaints of pain at this time.
--- NOTE | 2017-06-27 10:56 | NUR ---
case management note. received a message from Shyla at [facility] stating pt is accepted when medically stable and his insurance is a notification only so auth is not needed. pt had low O2 sat and is currently requiring O2 via face mask. met with pt at bedside. pt states he is feeling better today and ready to get OOB. pt states he is planning to go to [facility] at D/C. made him aware he is accepted and insurance only requires notification. therapy at bedside to see pt. case management to follow.
[2017-06-27 11:41] VITALS: BP 120/66; PULSE 80; TEMP 36.9; O2SAT 98
--- NOTE | 2017-06-27 12:09 | NUR ---
A: Pt reassessed. Pt OOB in chair at this time with family visiting in room. Assessment unchanged from this AM. Call miner is within reach of Pt. Pt asked to use call miner for assistance.
[2017-06-27] MEDS ORDERED: BUMETANIDE 1 MG TAB PO ONE (12:15)
[2017-06-27 15:35] VITALS: BP 118/69; PULSE 86; TEMP 36.9; O2SAT 95
--- NOTE | 2017-06-27 15:37 | Progress Note ---
Subjective Date of Service: Jun 27, 2017. Subjective Pt evaluation today including: conversation w/ patient, conversation w/ family , physical exam, lab review, review of inpatient medication list Pain: controlled PO Intake: adequate Voiding: suggs catheter in place patient feeling well, OOB in chair, eating well no chest pain, no dyspnea he keeps desaturating, was placed on oxymask due to some nose bleeds requiring 4L reviewed labs, Hb 8.7 and hct < 30 Cr up slightly at 1.4 ortho removed drain, changed dressing, no significant bleeding Problem List Medical Problems: (1) Abdom Aortic Aneurysm Status: Chronic (2) Aortic dissection, thoracic Status: Chronic (3) CAD (coronary artery disease) Status: Chronic (4) Chronic Kidney Disease, Unspecified Status: Chronic (5) Chronic Obstructive Pulmonary Disease W (Acute) Exacerbation Status: Chronic (6) Closed left hip fracture Status: Acute (7) HTN (hypertension) Status: Chronic (8) Hyperlipidemia, Unspecified Status: Chronic (9) Hypertrophy (Benign) Of Prostate W/O Urinary Obst & Oth Luts Status: Chronic (10) Hypothyroidism, Unspecified Status: Chronic (11) 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 Surgical Problems: (1) 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 (2) Aortocoronary Bypass Status: Chronic (3) 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 Review of Systems Constitutional: + weakness, + fatigue Respiratory: + dyspnea on exertion Musculoskeletal: + joint pain (left hip) All Other Systems: Reviewed and Negative Medications Current Inpatient Medications Medications (Trade) Dose Ordered Sig/Deion Route Start Time Stop Time Status Last Admin Dose Admin Al Hydrox/Mg Hydrox/Simethicone (Maalox Max Susp) 15 ml Q4H PRN PO 06/24/17 16:15 07/24/17 16:14 Magnesium Hydroxide (Milk Of Magnesia Susp) 30 ml Q12H PRN PO 06/24/17 16:15 07/24/17 16:14 Ondansetron HCl (Zofran Inj) 4 mg Q6H PRN IV 06/24/17 16:15 07/24/17 16:14 Naloxone HCl (Narcan Inj) 0.1 mg PRN PRN IV 06/24/17 16:15 07/24/17 16:14 Senna/Docusate Sodium (Senokot S Tab) 2 tab HS PO 06/24/17 21:00 07/24/17 20:59 06/26/17 20:51 2 TAB Polyethylene (Miralax Powder Packet) 17 gm DAILY PRN PO 06/24/17 16:15 07/24/17 16:14 Magnesium Hydroxide (Milk Of Magnesia Susp) 30 ml DAILY PRN PO 06/24/17 16:15 07/24/17 16:14 Bisacodyl (Dulcolax Supp) 10 mg DAILY PRN NC 06/24/17 16:15 07/24/17 16:14 Sodium Biphosphate/ Sodium Phosphate (Fleet Enema) 132 ml PRN PRN NC 06/24/17 16:15 Amiodarone HCl (Cordarone Tab) 200 mg QAM PO 06/25/17 09:00 07/25/17 08:59 06/27/17 08:36 200 MG Docusate Sodium (coLACE CAP) 100 mg QPM PO 06/24/17 21:00 07/24/17 20:59 06/26/17 20:51 100 MG Famotidine (Pepcid Tab) 20 mg QAM PO 06/25/17 09:00 07/25/17 08:59 06/27/17 08:36 20 MG Levothyroxine Sodium (Synthroid Tab) 25 mcg DAILYBB PO 06/25/17 06:00 07/25/17 05:59 06/27/17 06:15 25 MCG Nitroglycerin (Nitrostat Tab) 0.4 mg PRN PRN UT 06/24/17 16:15 07/24/17 16:14 Pravastatin Sodium (Pravachol Tab) 40 mg HS PO 06/24/17 21:00 07/24/17 20:59 06/26/17 20:51 40 MG Tamsulosin HCl (Flomax Cap) 0.4 mg HS PO 06/24/17 21:00 07/24/17 20:59 06/26/17 20:51 0.4 MG Morphine Sulfate (MoRPHine SULFATE INJ) 1 mg Q2H PRN IV 06/24/17 16:30 07/08/17 16:29 06/25/17 06:10 1 MG Hydralazine HCl (HydrALAZINE INJ) 10 mg Q6 PRN IV. 06/24/17 17:30 1/25/18 17:29 Metoprolol Succinate (Toprol Xl Tab) 50 mg QAM PO 06/25/17 09:00 07/25/17 08:59 06/25/17 09:29 50 MG Warfarin Sodium (Coumadin Tab) 1.25 mg SuWe@1600 PO 06/29/17 16:00 07/29/17 15:59 Warfarin Sodium (Coumadin Tab) 2.5 mg MoTuThFrSa@1600 PO 06/26/17 16:00 07/26/17 15:59 06/26/17 17:16 2.5 MG Acetaminophen 100 ml @ 400 mls/hr Q8H PRN IV 06/27/17 03:45 07/27/17 03:44 06/27/17 14:48 400 MLS/HR Objective Vital Signs Date Time Temp Pulse Resp B/P (MAP) Pulse Ox O2 Delivery O2 Flow Rate FiO2 06/27/17 12:00 Oxymask 2.0 06/27/17 11:41 36.9 80 16 120/66 (84) 98 Nasal Cannula 4.0 06/27/17 08:00 Oxymask 2.0 06/27/17 07:30 37.2 80 18 92/42 (59) 78 Nasal Cannula 3.0 Oxymask 06/27/17 04:46 36.5 83 17 102/49 (66) 94 Nasal Cannula 3.0 06/27/17 04:00 Nasal Cannula 2.0 06/27/17 00:00 Nasal Cannula 2.0 06/26/17 23:55 37.0 76 20 108/49 (68) 94 Nasal Cannula 3.0 06/26/17 20:19 Nasal Cannula 2.0 06/26/17 19:43 37.1 75 20 113/49 (70) 93 Nasal Cannula 2.0 06/26/17 16:00 Nasal Cannula 4.0 06/26/17 15:37 36.8 67 20 98/44 (62) 98 Nasal Cannula 4.0 Physical Exam General Appearance: WD/WN, no apparent distress Eyes: normal inspection, EOMI, sclerae normal ENT: normal ENT inspection, hearing grossly normal, pharynx normal Neck: supple, no adenopathy, no JVD, trachea midline Respiratory/Chest: chest non-tender, lungs clear, no respiratory distress, no accessory muscle use, + decreased breath sounds (bases) Cardiovascular: regular rate, rhythm, no edema, no gallop, no JVD, + pertinent finding (artificial valve sound) Abdomen: normal bowel sounds, non tender, soft, no organomegaly Extremities: normal inspection, no pedal edema, no calf tenderness, pelvis stable Neurologic/Psychiatric: candy decorator II-XII nml as tested, no motor/sensory deficits, alert, normal mood/affect, oriented x 3 Skin: normal color, warm/dry, no rash Laboratory Results Last 24 Hours Test 06/27/17 05:24 White Blood Count 7.28 K/uL Red Blood Count 3.10 M/uL Hemoglobin 8.7 g/dL Hematocrit 28.3 % Mean Corpuscular Volume 91.3 fL Mean Corpuscular Hemoglobin 28.1 pg Mean Corpuscular Hemoglobin Concent 30.7 g/dl RDW Standard Deviation 59.6 fL RDW Coefficient of Variation 17.8 % Platelet Count 93 K/uL Mean Platelet Volume 12.0 fL Prothrombin Time 15.5 SECONDS Prothromb Time International Ratio 1.5 Sodium Level 137 mmol/L Potassium Level 4.7 mmol/L Chloride Level 102 mmol/L Carbon Dioxide Level 33 mmol/L Anion Gap 2.0 mmol/L Blood Urea Nitrogen 24 mg/dl Creatinine 1.49 mg/dl Est Creatinine Clear Calc Drug Dose 47.5 ml/min Estimated GFR () 51.7 Estimated GFR (Non- 44.6 BUN/Creatinine Ratio 16.4 Random Glucose 101 mg/dl Calcium Level 7.8 mg/dl Magnesium Level 2.3 mg/dl Assessment and Plan Mr. Garcia is a 77 y/o male with PMHx of CAD S/P CABG, Aortic Dissection S/P Repair, Aortic Valve Replacement x 3 (Mechanical to Cadaver to Current Bovine), S/P Pacer/ICD, AAA measuring 6.1 cm, Systolic CHF with EF 35-40%, CKD Stage III , Peripheral Vascular Disease, Atrial Fibrillation, L Renal Mass, Transverse Myelitis, and Hypothyroidism who presents to the ED c/o fall resulting in L hip pain. L Hip Fracture S/P L Cemented Bipolar Hemiarthroplasty on 06/25: - Tylenol 1 g IV Q8H PRN, patient wants to avoid opiates - INR subtherapeutic, was reversed for surgery, continue Coumadin - Orthopedics following - discussed with Jayant Jeffers this AM - hemovac removed, dressing changes, no significant bleeding Acute blood loss anemia after surgery - EBL was only 250cc and no significant bleeding in drain - Hb down to 8.7, would not transfuse unless < 8, repeat in the AM Acute hypoxia and desaturations - certainly multifactorial with anemia, possibly atelectasis - patient is sitting upright most of the day, taking deep breaths with incentive spirometer - perhaps he is slightly volume overloaded, held bumex for two days for surgery - give Bumex 2mg PO and watch for diuresis, improvement in saturations Extensive Cardiac History: - CAD S/P CABG, Aortic Dissection S/P Repair, AAA at 6.1 cm, AVR x 3 (Current Bovine), Atrial Fibrillation, S/P Pacer/ICD, Systolic CHF EF 35-40% - Amiodarone 200 mg daily and Toprol-XL reduced to 50 mg daily - resume a single dose of Bumex 2mg today, watch for response CKD Stage III: STABLE - Continue to monitor kidney function especially after surgical intervention - avoid nephrotoxic agents when able - Cr up to 1.4, still at baseline L Renal Mass: Concerning for RCC - STABLE - Patient has only opted for minimal intervention for this renal mass - he was supposed to have cryotherapy done by urology however needed clearance due to his AAA; per review of outpatient records states he was seen by Dr. Dunaway who states no repair was necessary at this time - urology plans to perform procedure in August 2017 Transverse Myelitis: STABLE - Patient reports no worsening of issues prior to this fall - states his left leg is more "gimpy" compared to his right leg Hypothyroidism: - Synthroid 25 mcg daily DVT Prophylaxis: SCDs Code Status: DO NOT RESUSCITATE Continued [facility] stay due to: multiple IV medications needed Discharge planning: uncertain
--- NOTE | 2017-06-27 16:00 | NUR ---
A: Assessment completed, full assessment in the EMR. Patient is resting with family at the bedside, he is receiving pain medicine at this time after he was out of bed for a while. Denies any other pain or discomfort. No other needs, call miner within reach.
[2017-06-27] MEDS: WARFARIN SOD 2.5 MG TAB PO SCH (17:04)
[2017-06-27 19:27] VITALS: BP 104/47; PULSE 82; TEMP 36.8; O2SAT 95
[2017-06-27] MEDS: DOCUSATE SODIUM 100 MG CAP PO SCH (20:52)
[2017-06-27] MEDS: PRAVASTATIN SOD 40 MG TAB PO SCH (20:52)
[2017-06-27] MEDS: DOCUSATE SODIUM/SENNA 50/8.6MG TAB PO SCH (20:52)
[2017-06-27] MEDS: TAMSULOSIN HCL 0.4 MG CAP PO SCH (20:52)
[2017-06-28] VITALS (19 sets, daily range): BP systolic 87–123; BP diastolic 45–71; PULSE 71–92; TEMP 36.8–37.9; O2SAT 80–98
--- NOTE | 2017-06-28 | NUR ---
A: PT is alert and oriented x4, NSR with 1, IVCD on monitoring engineer, denies chest pain or SOB, VSS, L hip pain 6/10 given IV pain medication, L hip dressing is CDI with small amount of outlined shadowing on distal portion, suggs draining clear yellow, assessment compleat
--- NOTE | 2017-06-28 04:00 | NUR ---
A: PT is alert and oriented x4, NSR with 1, IVCD on security rep, denies chest pain or SOB, VSS, no complaints at this time, assessment compleat.
--- NOTE | 2017-06-28 05:26 | NUR ---
A: Spoke with epic professional hospitalist regarding PTs down trend in BPs gave verbal order to give 500ml bolus 1x now.
[2017-06-28] MEDS ORDERED: NURSING VERBAL MED ORDER ONE (05:30)
[2017-06-28] MEDS ORDERED: SODIUM CHLORIDE 0.9% 500ML 500 ML IV STA (05:35)
[2017-06-28] MEDS: LEVOTHYROXINE 25 MCG TAB PO SCH (05:37)
[2017-06-28 06:05] LABS: HEMATOCRIT 25.9 % (42-52); MEAN CELL VOLUME 90.9 fL (80-100); MEAN CORPUSCULAR HEMOGLOBIN 28.1 pg (25-34); MEAN CORPUSCULAR HGB CONC 30.9 g/dl (32-36); NUCLEATED RED BLOOD CELL ABS 0.02 K/uL (0-0); RED CELL DISTRIBUTION WIDTH CV 17.6 % (11.5-14.5); RED CELL DISTRIBUTION WIDTH SD 58.3 fL (36.4-46.3); WHITE BLOOD COUNT 7.15 K/uL (4.8-10.8)
[2017-06-28 06:10] LABS: MEAN PLATELET VOLUME 10.5 fL (7.4-10.4); PLATELET COUNT 73 K/uL (130-400)
[2017-06-28 06:34] LABS: CALCIUM 8.1 mg/dl (8.5-10.1); CREATININE 1.13 mg/dl (0.60-1.40); POTASSIUM 4.6 mmol/L (3.5-5.1)
[2017-06-28 06:54] LABS: BASO % 0.1 %; BASO ABS # 0.01 K/uL (0-0.2); EOS % 1.7 %; EOS ABS # 0.12 K/uL (0-0.5); IG# 0.04 K/uL (0.00-0.02); LYMPH % 17.3 %; LYMPH ABS # 1.24 K/uL (1.2-3.4); MONO % 14.4 %; MONO ABS # 1.03 K/uL (0.11-0.59); NEUT % 65.9 %; NEUT ABS # 4.71 K/uL (1.4-6.5)
--- NOTE | 2017-06-28 08:00 | NUR ---
A: denies complaints of pain. states just feels tired. O2 at 2lpm via nc, no acute respiratory distress noted. 20 jelco intact right hand, site clear. dressing change done to left hip. melanie intact. moderate amount of serosangious drainage noted. left hip edematous. buttocks pink/purple. suggs patent clear yellow urine. bilateral SCDs on. consumed 100% breakfast.
[2017-06-28] MEDS: AMIODARONE 200 MG TAB PO SCH (08:45)
[2017-06-28] MEDS: METOPROLOL SUCC 50MG EXT REL TAB PO SCH (08:45)
[2017-06-28] MEDS ORDERED: BUMETANIDE SOLN 1 MG/4 ML VIAL IV ONE (08:45)
[2017-06-28] MEDS: FAMOTIDINE 20 MG TAB PO SCH (10:17)
--- NOTE | 2017-06-28 10:24 | Orthopedic Progress Note ---
Orthopedic Progress Note Date of Service Jun 28, 2017. Subjective Post OP Day: 3 Reports: pain controlled w PO medications, Denies: feeling well, complaints, chest pain, SOB, nausea / vomiting, light headedness, calf pain Additional Notes: Hgb 8.0 Objective calves soft nontender, N/V intact, hip located, capillary refill less than 2 sec., A&O x3, toes mobile Some serosanguinous drainage from drain and incisional areas, no erythema. Esteban in tact. Date Time Temp Pulse Resp B/P (MAP) Pulse Ox O2 Delivery O2 Flow Rate FiO2 06/28/17 07:29 37.0 79 20 110/50 (70) 98 Nasal Cannula 4.0 06/28/17 06:39 112/49 (70) 06/28/17 04:35 82 92/47 (62) 92 Nasal Cannula 4.0 Humidified Oxygen 06/28/17 00:04 36.8 92 22 94/71 (79) 93 06/28/17 00:00 95 Oxymask 3.0 06/27/17 20:00 Oxymask 2.0 06/27/17 19:27 36.8 82 18 104/47 (66) 95 06/27/17 16:00 Oxymask 2.0 06/27/17 15:35 36.9 86 16 118/69 (85) 95 06/27/17 12:00 Oxymask 2.0 06/27/17 11:41 36.9 80 16 120/66 (84) 98 Nasal Cannula 4.0 Laboratory Results 24 Hours: Test 06/28/17 05:29 White Blood Count 7.15 K/uL Red Blood Count 2.85 M/uL Hemoglobin 8.0 g/dL Hematocrit 25.9 % Mean Corpuscular Volume 90.9 fL Mean Corpuscular Hemoglobin 28.1 pg Mean Corpuscular Hemoglobin Concent 30.9 g/dl Platelet Count 73 K/uL Mean Platelet Volume 10.5 fL Neutrophils (%) (Auto) 65.9 % Lymphocytes (%) (Auto) 17.3 % Monocytes (%) (Auto) 14.4 % Eosinophils (%) (Auto) 1.7 % Basophils (%) (Auto) 0.1 % Neutrophils # (Auto) 4.71 K/uL Lymphocytes # (Auto) 1.24 K/uL Monocytes # (Auto) 1.03 K/uL Eosinophils # (Auto) 0.12 K/uL Basophils # (Auto) 0.01 K/uL Assessment & Plan Assessment: POD #3 Left hip bipolar hemiarthroplasty Plan: PT/ OT- WBAT DVT proph- Coumadin D/C Planning- Rehab As per primary team- transfusion 1 unit today.
[2017-06-28] MEDS ORDERED: BUMETANIDE IV 2 MG in SYRINGE 0 ML IV SCH (12:00)
--- NOTE | 2017-06-28 12:00 | NUR ---
A: Assessment completed and charted. See EMR for full details. Patient denies pain or discomfort. Tolerating blood transfusion without difficulty. Call miner in reach. Encouraged to ring for assistance. Will continue to monitor.
--- NOTE | 2017-06-28 13:45 | Progress Note ---
Subjective Date of Service: Jun 28, 2017. Subjective Pt evaluation today including: conversation w/ patient, physical exam, lab review, review of inpatient medication list Pain: limited pain in hip PO Intake: adequate Voiding: suggs catheter in place patient still feeling relatively well, breathing stable, feels fatigued Hb 8.0 this AM, down from 8.7 and overall down from 12.3 at time of admission consented for blood transfusion Problem List Medical Problems: (1) Abdom Aortic Aneurysm Status: Chronic (2) Aortic dissection, thoracic Status: Chronic (3) CAD (coronary artery disease) Status: Chronic (4) Chronic Kidney Disease, Unspecified Status: Chronic (5) Chronic Obstructive Pulmonary Disease W (Acute) Exacerbation Status: Chronic (6) Closed left hip fracture Status: Acute (7) HTN (hypertension) Status: Chronic (8) Hyperlipidemia, Unspecified Status: Chronic (9) Hypertrophy (Benign) Of Prostate W/O Urinary Obst & Oth Luts Status: Chronic (10) Hypothyroidism, Unspecified Status: Chronic (11) 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 Surgical Problems: (1) 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 (2) Aortocoronary Bypass Status: Chronic (3) 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 Review of Systems Constitutional: + weakness, + fatigue Respiratory: + dyspnea on exertion Musculoskeletal: + joint pain (left hip) Neurologic: + weakness All Other Systems: Reviewed and Negative Medications Current Inpatient Medications Medications (Trade) Dose Ordered Sig/Deion Route Start Time Stop Time Status Last Admin Dose Admin Al Hydrox/Mg Hydrox/Simethicone (Maalox Max Susp) 15 ml Q4H PRN PO 06/24/17 16:15 07/24/17 16:14 Magnesium Hydroxide (Milk Of Magnesia Susp) 30 ml Q12H PRN PO 06/24/17 16:15 07/24/17 16:14 Ondansetron HCl (Zofran Inj) 4 mg Q6H PRN IV 06/24/17 16:15 07/24/17 16:14 Naloxone HCl (Narcan Inj) 0.1 mg PRN PRN IV 06/24/17 16:15 07/24/17 16:14 Senna/Docusate Sodium (Senokot S Tab) 2 tab HS PO 06/24/17 21:00 07/24/17 20:59 06/27/17 20:52 2 TAB Polyethylene (Miralax Powder Packet) 17 gm DAILY PRN PO 06/24/17 16:15 07/24/17 16:14 Magnesium Hydroxide (Milk Of Magnesia Susp) 30 ml DAILY PRN PO 06/24/17 16:15 07/24/17 16:14 Bisacodyl (Dulcolax Supp) 10 mg DAILY PRN RI 06/24/17 16:15 07/24/17 16:14 Sodium Biphosphate/ Sodium Phosphate (Fleet Enema) 132 ml PRN PRN RI 06/24/17 16:15 Amiodarone HCl (Cordarone Tab) 200 mg QAM PO 06/25/17 09:00 07/25/17 08:59 06/28/17 08:45 200 MG Docusate Sodium (coLACE CAP) 100 mg QPM PO 06/24/17 21:00 07/24/17 20:59 06/27/17 20:52 100 MG Famotidine (Pepcid Tab) 20 mg QAM PO 06/25/17 09:00 07/25/17 08:59 06/28/17 10:17 20 MG Levothyroxine Sodium (Synthroid Tab) 25 mcg DAILYBB PO 06/25/17 06:00 07/25/17 05:59 06/28/17 05:37 25 MCG Nitroglycerin (Nitrostat Tab) 0.4 mg PRN PRN UT 06/24/17 16:15 07/24/17 16:14 Pravastatin Sodium (Pravachol Tab) 40 mg HS PO 06/24/17 21:00 07/24/17 20:59 06/27/17 20:52 40 MG Tamsulosin HCl (Flomax Cap) 0.4 mg HS PO 06/24/17 21:00 07/24/17 20:59 06/27/17 20:52 0.4 MG Morphine Sulfate (MoRPHine SULFATE INJ) 1 mg Q2H PRN IV 06/24/17 16:30 07/08/17 16:29 06/25/17 06:10 1 MG Hydralazine HCl (HydrALAZINE INJ) 10 mg Q6 PRN IV. 06/24/17 17:30 07/24/17 17:29 Metoprolol Succinate (Toprol Xl Tab) 50 mg QAM PO 06/25/17 09:00 07/25/17 08:59 06/28/17 08:45 50 MG Warfarin Sodium (Coumadin Tab) 1.25 mg SuWe@1600 PO 06/29/17 16:00 07/29/17 15:59 Warfarin Sodium (Coumadin Tab) 2.5 mg MoTuThFrSa@1600 PO 06/26/17 16:00 07/26/17 15:59 06/27/17 17:04 2.5 MG Acetaminophen 100 ml @ 400 mls/hr Q8H PRN IV 06/27/17 03:45 07/27/17 03:44 06/27/17 23:40 400 MLS/HR Objective Vital Signs Date Time Temp Pulse Resp B/P (MAP) Pulse Ox O2 Delivery O2 Flow Rate FiO2 06/28/17 12:45 37.0 85 29 107/48 (67) 92 Nasal Cannula 2.0 06/28/17 12:30 37.0 82 24 102/48 (66) 91 Nasal Cannula 2.0 06/28/17 12:00 36.9 83 22 102/50 (67) 93 Nasal Cannula 2.0 06/28/17 11:45 87 23 119/60 (79) 91 Nasal Cannula 2.0 06/28/17 11:37 37.1 89 26 108/57 (74) 91 Nasal Cannula 2.0 06/28/17 11:15 37.0 88 20 123/56 97 2.0 06/28/17 11:00 37.1 88 20 117/56 97 06/28/17 10:56 37.0 82 22 111/57 96 06/28/17 08:00 Nasal Cannula 2.0 06/28/17 07:29 37.0 79 20 110/50 (70) 98 Nasal Cannula 4.0 06/28/17 06:39 112/49 (70) 06/28/17 04:35 82 92/47 (62) 92 Nasal Cannula 4.0 Humidified Oxygen 06/28/17 00:04 36.8 92 22 94/71 (79) 93 06/28/17 00:00 95 Oxymask 3.0 06/27/17 20:00 Oxymask 2.0 06/27/17 19:27 36.8 82 18 104/47 (66) 95 06/27/17 16:00 Oxymask 2.0 06/27/17 15:35 36.9 86 16 118/69 (85) 95 Physical Exam General Appearance: WD/WN, no apparent distress Eyes: normal inspection, EOMI, sclerae normal ENT: normal ENT inspection, hearing grossly normal, pharynx normal Neck: supple, no adenopathy, no JVD, trachea midline Respiratory/Chest: chest non-tender, lungs clear, normal breath sounds, no respiratory distress, no accessory muscle use Cardiovascular: regular rate, rhythm, no edema, no gallop, no JVD, + pertinent finding (artificial valve sound) Abdomen: normal bowel sounds, non tender, soft, no organomegaly Extremities: normal inspection, no pedal edema, no calf tenderness, pelvis stable, + pertinent finding (left hip tender, decreased ROM) Neurologic/Psychiatric: wader boot top assembler II-XII nml as tested, no motor/sensory deficits, alert, normal mood/affect, oriented x 3 Skin: normal color, warm/dry, no rash Laboratory Results Last 24 Hours Test 06/28/17 05:29 White Blood Count 7.15 K/uL Red Blood Count 2.85 M/uL Hemoglobin 8.0 g/dL Hematocrit 25.9 % Mean Corpuscular Volume 90.9 fL Mean Corpuscular Hemoglobin 28.1 pg Mean Corpuscular Hemoglobin Concent 30.9 g/dl Platelet Count 73 K/uL Mean Platelet Volume 10.5 fL Neutrophils (%) (Auto) 65.9 % Lymphocytes (%) (Auto) 17.3 % Monocytes (%) (Auto) 14.4 % Eosinophils (%) (Auto) 1.7 % Basophils (%) (Auto) 0.1 % Neutrophils # (Auto) 4.71 K/uL Lymphocytes # (Auto) 1.24 K/uL Monocytes # (Auto) 1.03 K/uL Eosinophils # (Auto) 0.12 K/uL Basophils # (Auto) 0.01 K/uL RDW Standard Deviation 58.3 fL RDW Coefficient of Variation 17.6 % Immature Granulocyte % (Auto) 0.6 % Immature Granulocyte # (Auto) 0.04 K/uL Nucleated RBC Absolute Count (auto) 0.02 K/uL Nucleated Red Blood Cells % 0.2 % Toxic Vacuolation 1+ Platelet Estimate DECREASED Ovalocytes 1+ Sodium Level 136 mmol/L Potassium Level 4.6 mmol/L Chloride Level 103 mmol/L Carbon Dioxide Level 31 mmol/L Anion Gap 2.0 mmol/L Blood Urea Nitrogen 23 mg/dl Creatinine 1.13 mg/dl Est Creatinine Clear Calc Drug Dose 62.7 ml/min Estimated GFR () 72.3 Estimated GFR (Non- 62.4 BUN/Creatinine Ratio 20.4 Random Glucose 103 mg/dl Calcium Level 8.1 mg/dl Magnesium Level 2.3 mg/dl Assessment and Plan Mr. Garcia is a 77 y/o male with PMHx of CAD S/P CABG, Aortic Dissection S/P Repair, Aortic Valve Replacement x 3 (Mechanical to Cadaver to Current Bovine), S/P Pacer/ICD, AAA measuring 6.1 cm, Systolic CHF with EF 35-40%, CKD Stage III , Peripheral Vascular Disease, Atrial Fibrillation, L Renal Mass, Transverse Myelitis, and Hypothyroidism who presents to the ED c/o fall resulting in L hip pain. L Hip Fracture S/P L Cemented Bipolar Hemiarthroplasty on 06/25: - Tylenol 1 g IV Q8H PRN, patient wants to avoid opiates - INR subtherapeutic on 06/27, was reversed for surgery, continue Coumadin, check INR tomorrow - Orthopedics following - hemovac removed, dressing changes, no significant bleeding Acute blood loss anemia after surgery - EBL was only 250cc and no significant bleeding in drain - Hb down to 8.0 this AM, will transfuse one unit and give Bumex 2mg IV afterwards Acute hypoxia and desaturations - certainly multifactorial with anemia, possibly atelectasis - patient is sitting upright most of the day, taking deep breaths with incentive spirometer - still requiring oxygen today, hopeful for improvement with transfusion and diuresis Extensive Cardiac History: - CAD S/P CABG, Aortic Dissection S/P Repair, AAA at 6.1 cm, AVR x 3 (Current Bovine), Atrial Fibrillation, S/P Pacer/ICD, Systolic CHF EF 35-40% - Amiodarone 200 mg daily and Toprol-XL reduced to 50 mg daily - Bumex 2mg IV after transfusion today, possible resuming 2mg BID tomorrow CKD Stage III: STABLE - Continue to monitor kidney function especially after surgical intervention - avoid nephrotoxic agents when able - Cr stable at 1.1, still at baseline L Renal Mass: Concerning for RCC - STABLE - Patient has only opted for minimal intervention for this renal mass - he was supposed to have cryotherapy done by urology however needed clearance due to his AAA; per review of outpatient records states he was seen by Dr. Dunaway who states no repair was necessary at this time - urology plans to perform procedure in August 2017 Transverse Myelitis: STABLE - Patient reports no worsening of issues prior to this fall - states his left leg is more "gimpy" compared to his right leg Hypothyroidism: - Synthroid 25 mcg daily DVT Prophylaxis: SCDs Code Status: DO NOT RESUSCITATE Continued [facility] stay due to: multiple IV medications needed Discharge planning: uncertain
[2017-06-28] MEDS: WARFARIN SOD 2.5 MG TAB PO SCH (15:49)
--- NOTE | 2017-06-28 16:00 | NUR ---
A: Assessment completed and charted. See EMR for full details. Patient resting in bed at this time. Attempted to get OOB to a chair. Patient was unable to sit in bed unassisted and unable to take steps after patient got to a standing positing. Lift pad ordered to assist with getting patient OOB. Call miner in reach. Encouraged to ring for assistance. Will continue to monitor.
[2017-06-28] MEDS: ACETAMINOPHEN IV 1000MG/100ML IV PRN (19:25)
--- NOTE | 2017-06-28 20:00 | NUR ---
A: PT is alert and oriented x4, NS with 1 and IVCD on personnel security specialist, denies chest pain or SOB, on 4L NC, L hip dressing was saturated with large amount of serious drainage dressing was changed with serious drainage seeping from staple sites and previous HV site he was noted to have +2 pitting edema to his L hip, he was redressed and a pillow placed under L hip and new EZ wrap applied, he was also found to have a lg blister on his sacral area skin care was applied and a Optifoam placed over site, will consult WC, he states pain of 3/10 in L hip relived by IV pain medication, DC plan uncertain, BP remains low but stable, assessment compleat.
[2017-06-28] MEDS: TAMSULOSIN HCL 0.4 MG CAP PO SCH (20:21)
[2017-06-28] MEDS: DOCUSATE SODIUM/SENNA 50/8.6MG TAB PO SCH (20:21)
[2017-06-28] MEDS: PRAVASTATIN SOD 40 MG TAB PO SCH (20:21)
[2017-06-28] MEDS: DOCUSATE SODIUM 100 MG CAP PO SCH (20:21)
[2017-06-28 21:01] LABS: HEMATOCRIT 26.2 % (42-52); HEMOGLOBIN 8.2 g/dL (14.0-18.0)
[2017-06-29] VITALS (7 sets, daily range): BP systolic 97–105; BP diastolic 42–51; PULSE 74–79; TEMP 37.2–38.2; O2SAT 92–98
--- NOTE | 2017-06-29 | NUR ---
A: PT is alert and oriented x4, NS with 1 and IVCD on cardiac cath rn, denies chest pain or SOB on 6L oxy mask, turn and reposition, L hip showing shadowing will assess again at 0400, assessment compleat.
--- NOTE | 2017-06-29 04:00 | NUR ---
A: PT is alert and oriented x4, NS with 1 and IVCD on quality assurance monitor chassis, denies chest pain or SOB on 6L oxy mask, no complaints at this time assessment compleat.
[2017-06-29] MEDS: LEVOTHYROXINE 25 MCG TAB PO SCH (05:27)
[2017-06-29 05:52] LABS: MEAN CORPUSCULAR HGB CONC 31.3 g/dl (32-36)
[2017-06-29 06:00] LABS: HEMATOCRIT 27.5 % (42-52); HEMOGLOBIN 8.6 g/dL (14.0-18.0); MEAN CELL VOLUME 91.1 fL (80-100); MEAN CORPUSCULAR HEMOGLOBIN 28.5 pg (25-34); RED CELL DISTRIBUTION WIDTH CV 17.5 % (11.5-14.5); RED CELL DISTRIBUTION WIDTH SD 58.8 fL (36.4-46.3)
[2017-06-29 06:03] LABS: INR 1.2 (0.9-1.1)
[2017-06-29 06:08] LABS: MEAN PLATELET VOLUME 10.2 fL (7.4-10.4); PLATELET COUNT 93 K/uL (130-400)
[2017-06-29 06:24] LABS: BASO % 0.1 %; BASO ABS # 0.01 K/uL (0-0.2); EOS % 2.6 %; EOS ABS # 0.18 K/uL (0-0.5); IG# 0.08 K/uL (0.00-0.02); LYMPH % 16.1 %; LYMPH ABS # 1.11 K/uL (1.2-3.4); MONO % 12.6 %; MONO ABS # 0.87 K/uL (0.11-0.59); NEUT % 67.4 %; NEUT ABS # 4.65 K/uL (1.4-6.5)
[2017-06-29 06:30] LABS: CALCIUM 7.9 mg/dl (8.5-10.1); CREATININE 1.08 mg/dl (0.60-1.40); POTASSIUM 3.7 mmol/L (3.5-5.1)
--- NOTE | 2017-06-29 06:43 | NUR ---
A: PT placed in total care bed with rotation therapy R/T lack of mobility and skin break down on sacrum.
--- NOTE | 2017-06-29 08:00 | NUR ---
A: denies complaints at present. O2 at 2lpm via nc. no acute respiratory distress noted. 20 jelco intact right hand, site clear. suggs patent clear yellow urine. left hip dressing intact. small amount serosangious drainage noted to distal end. bilateral SCDs on. consumed 100% breakfast.
[2017-06-29] MEDS: FAMOTIDINE 20 MG TAB PO SCH (08:25)
[2017-06-29] MEDS: METOPROLOL SUCC 50MG EXT REL TAB PO SCH (08:25)
[2017-06-29] MEDS: AMIODARONE 200 MG TAB PO SCH (08:25)
[2017-06-29] MEDS: BUMETANIDE 1 MG TAB PO SCH ×2 (08:58→17:19)
--- NOTE | 2017-06-29 09:17 | Orthopedic Progress Note ---
Orthopedic Progress Note Date of Service Jun 29, 2017. Subjective Post OP Day: 4 Reports: feeling well, pain controlled w PO medications, Denies: complaints, chest pain, SOB, nausea / vomiting, light headedness, calf pain Additional Notes: Hgb 8.6 Objective calves soft nontender, N/V intact, hip located, capillary refill less than 2 sec., A&O x3, toes mobile Incision and drain sites with serosanguinous drainage, less than yesterday. Skin edges approximated well, no erythema, melanie in tact. Date Time Temp Pulse Resp B/P (MAP) Pulse Ox O2 Delivery O2 Flow Rate FiO2 06/29/17 08:19 37.6 77 22 97/48 (64) 98 Nasal Cannula 4.0 Humidified Oxygen 06/29/17 04:00 Oxymask 8.0 06/29/17 00:00 Oxymask 8.0 06/28/17 23:50 37.0 77 24 104/47 (66) 98 Nasal Cannula 8.0 06/28/17 22:22 94 Oxymask 8.0 06/28/17 22:21 80 Nasal Cannula 4.0 06/28/17 21:07 83 87/45 (59) 06/28/17 20:00 Nasal Cannula 3.0 06/28/17 19:05 37.9 91 20 105/49 (67) 93 Humidified Air 3.0 06/28/17 16:00 Nasal Cannula 2.0 06/28/17 15:30 37.6 90 23 114/52 (72) 91 Humidified Air 2.0 06/28/17 12:45 37.0 85 29 107/48 (67) 92 Nasal Cannula 2.0 06/28/17 12:30 37.0 82 24 102/48 (66) 91 Nasal Cannula 2.0 06/28/17 12:00 36.9 83 22 102/50 (67) 93 Nasal Cannula 2.0 06/28/17 12:00 Nasal Cannula 2.0 06/28/17 11:45 87 23 119/60 (79) 91 Nasal Cannula 2.0 06/28/17 11:37 37.1 89 26 108/57 (74) 91 Nasal Cannula 2.0 06/28/17 11:15 37.0 88 20 123/56 97 2.0 06/28/17 11:00 37.1 88 20 117/56 97 06/28/17 10:56 37.0 82 22 111/57 96 Laboratory Results 24 Hours: Test 06/28/17 20:38 06/29/17 05:14 Hematocrit 26.2 % 27.5 % Hemoglobin 8.2 g/dL 8.6 g/dL White Blood Count 6.90 K/uL Red Blood Count 3.02 M/uL Mean Corpuscular Volume 91.1 fL Mean Corpuscular Hemoglobin 28.5 pg Mean Corpuscular Hemoglobin Concent 31.3 g/dl Platelet Count 93 K/uL Mean Platelet Volume 10.2 fL Neutrophils (%) (Auto) 67.4 % Lymphocytes (%) (Auto) 16.1 % Monocytes (%) (Auto) 12.6 % Eosinophils (%) (Auto) 2.6 % Basophils (%) (Auto) 0.1 % Neutrophils # (Auto) 4.65 K/uL Lymphocytes # (Auto) 1.11 K/uL Monocytes # (Auto) 0.87 K/uL Eosinophils # (Auto) 0.18 K/uL Basophils # (Auto) 0.01 K/uL Prothromb Time International Ratio 1.2 Prothrombin Time 12.3 SECONDS Assessment & Plan Assessment: POD #4 Left hip bipolar hemiarthroplasty Plan: PT/ OT- WBAT DVT proph- Coumadin D/C Planning- Rehab As per primary team
[2017-06-29] MEDS: POLYETHYLENE (MIRALAX) 17 GM PACK PO SCH (11:24)
--- NOTE | 2017-06-29 12:00 | NUR ---
A: denies complaints at present. O2 at 2lpm via nc, no acute respiratory distress noted. consumed 100% lunch. saline lock intact, site clear. visitor at bedside. dressing changed to left hip. site remains edematous with serosangious drainage, but decreased amount from yesterday. suggs patent clear yellow urine. bilateral SCDs on. assessment unchanged.
--- NOTE | 2017-06-29 13:42 | Progress Note ---
Subjective Date of Service: Jun 29, 2017. Subjective Pt evaluation today including: conversation w/ patient, physical exam, lab review, review of inpatient medication list Pain: mild pain in hip PO Intake: adequate Voiding: suggs catheter in place patient feeling a little more energetic today, feels that the blood transfusion helped reviewed labs, Hb 8.6, Cr stable at 1.01 urine output increasing with Bumex added back Problem List Medical Problems: (1) Abdom Aortic Aneurysm Status: Chronic (2) Aortic dissection, thoracic Status: Chronic (3) CAD (coronary artery disease) Status: Chronic (4) Chronic Kidney Disease, Unspecified Status: Chronic (5) Chronic Obstructive Pulmonary Disease W (Acute) Exacerbation Status: Chronic (6) Closed left hip fracture Status: Acute (7) HTN (hypertension) Status: Chronic (8) Hyperlipidemia, Unspecified Status: Chronic (9) Hypertrophy (Benign) Of Prostate W/O Urinary Obst & Oth Luts Status: Chronic (10) Hypothyroidism, Unspecified Status: Chronic (11) 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 Surgical Problems: (1) 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 (2) Aortocoronary Bypass Status: Chronic (3) 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 Review of Systems Constitutional: + weakness, + fatigue Respiratory: + shortness of breath Musculoskeletal: + joint pain (left hip) All Other Systems: Reviewed and Negative Medications Current Inpatient Medications Medications (Trade) Dose Ordered Sig/Deion Route Start Time Stop Time Status Last Admin Dose Admin Al Hydrox/Mg Hydrox/Simethicone (Maalox Max Susp) 15 ml Q4H PRN PO 06/24/17 16:15 07/24/17 16:14 Magnesium Hydroxide (Milk Of Magnesia Susp) 30 ml Q12H PRN PO 06/24/17 16:15 07/24/17 16:14 Ondansetron HCl (Zofran Inj) 4 mg Q6H PRN IV 06/24/17 16:15 07/24/17 16:14 Naloxone HCl (Narcan Inj) 0.1 mg PRN PRN IV 06/24/17 16:15 07/24/17 16:14 Senna/Docusate Sodium (Senokot S Tab) 2 tab HS PO 06/24/17 21:00 07/24/17 20:59 06/28/17 20:21 2 TAB Magnesium Hydroxide (Milk Of Magnesia Susp) 30 ml DAILY PRN PO 06/24/17 16:15 07/24/17 16:14 Bisacodyl (Dulcolax Supp) 10 mg DAILY PRN VA 06/24/17 16:15 07/24/17 16:14 Sodium Biphosphate/ Sodium Phosphate (Fleet Enema) 132 ml PRN PRN VA 06/24/17 16:15 Amiodarone HCl (Cordarone Tab) 200 mg QAM PO 06/25/17 09:00 07/25/17 08:59 06/29/17 08:25 200 MG Docusate Sodium (coLACE CAP) 100 mg QPM PO 06/24/17 21:00 07/24/17 20:59 06/28/17 20:21 100 MG Famotidine (Pepcid Tab) 20 mg QAM PO 06/25/17 09:00 07/25/17 08:59 06/29/17 08:25 20 MG Levothyroxine Sodium (Synthroid Tab) 25 mcg DAILYBB PO 06/25/17 06:00 07/25/17 05:59 06/29/17 05:27 25 MCG Nitroglycerin (Nitrostat Tab) 0.4 mg PRN PRN UT 06/24/17 16:15 07/24/17 16:14 Pravastatin Sodium (Pravachol Tab) 40 mg HS PO 06/24/17 21:00 07/24/17 20:59 06/28/17 20:21 40 MG Tamsulosin HCl (Flomax Cap) 0.4 mg HS PO 06/24/17 21:00 07/24/17 20:59 06/28/17 20:21 0.4 MG Morphine Sulfate (MoRPHine SULFATE INJ) 1 mg Q2H PRN IV 06/24/17 16:30 07/08/17 16:29 06/25/17 06:10 1 MG Hydralazine HCl (HydrALAZINE INJ) 10 mg Q6 PRN IV. 06/24/17 17:30 07/24/17 17:29 Metoprolol Succinate (Toprol Xl Tab) 50 mg QAM PO 06/25/17 09:00 07/25/17 08:59 06/29/17 08:25 50 MG Warfarin Sodium (Coumadin Tab) 1.25 mg SuWe@1600 PO 06/29/17 16:00 07/29/17 15:59 Warfarin Sodium (Coumadin Tab) 2.5 mg MoTuThFrSa@1600 PO 06/26/17 16:00 07/26/17 15:59 06/28/17 15:49 2.5 MG Acetaminophen 100 ml @ 400 mls/hr Q8H PRN IV 06/27/17 03:45 07/27/17 03:44 06/28/17 19:25 400 MLS/HR Bumetanide (Bumex Tab) 2 mg BID17 PO 06/29/17 09:00 07/29/17 08:59 06/29/17 08:58 2 MG Polyethylene (Miralax Powder Packet) 17 gm DAILY PO 06/29/17 09:15 07/24/17 16:14 06/29/17 11:24 17 GM Objective Vital Signs Date Time Temp Pulse Resp B/P (MAP) Pulse Ox O2 Delivery O2 Flow Rate FiO2 06/29/17 12:32 37.3 74 20 98/42 (60) 97 Nasal Cannula 4.0 Humidified Oxygen 06/29/17 12:00 Nasal Cannula 2.0 06/29/17 08:19 37.6 77 22 97/48 (64) 98 Nasal Cannula 4.0 Humidified Oxygen 06/29/17 08:00 Nasal Cannula 2.0 06/29/17 04:00 Oxymask 8.0 06/29/17 00:00 Oxymask 8.0 06/28/17 23:50 37.0 77 24 104/47 (66) 98 Nasal Cannula 8.0 06/28/17 22:22 94 Oxymask 8.0 06/28/17 22:21 80 Nasal Cannula 4.0 06/28/17 21:07 83 87/45 (59) 06/28/17 20:00 Nasal Cannula 3.0 06/28/17 19:05 37.9 91 20 105/49 (67) 93 Humidified Air 3.0 06/28/17 16:00 Nasal Cannula 2.0 06/28/17 15:30 37.6 90 23 114/52 (72) 91 Humidified Air 2.0 Physical Exam General Appearance: WD/WN, no apparent distress Eyes: normal inspection, EOMI, sclerae normal ENT: normal ENT inspection, hearing grossly normal, pharynx normal Neck: supple, no adenopathy, no JVD, trachea midline Respiratory/Chest: chest non-tender, lungs clear, normal breath sounds, no respiratory distress, no accessory muscle use Cardiovascular: regular rate, rhythm, no edema, no gallop, no JVD, no murmur Abdomen: normal bowel sounds, non tender, soft, no organomegaly Extremities: non-tender, normal inspection, no pedal edema, no calf tenderness , pelvis stable Neurologic/Psychiatric: night clerk II-XII nml as tested, alert, normal mood/affect, oriented x 3, + motor weakness Skin: normal color, warm/dry, no rash Laboratory Results Last 24 Hours Test 06/28/17 20:38 06/29/17 05:14 Hemoglobin 8.2 g/dL 8.6 g/dL Hematocrit 26.2 % 27.5 % White Blood Count 6.90 K/uL Red Blood Count 3.02 M/uL Mean Corpuscular Volume 91.1 fL Mean Corpuscular Hemoglobin 28.5 pg Mean Corpuscular Hemoglobin Concent 31.3 g/dl Platelet Count 93 K/uL Mean Platelet Volume 10.2 fL Neutrophils (%) (Auto) 67.4 % Lymphocytes (%) (Auto) 16.1 % Monocytes (%) (Auto) 12.6 % Eosinophils (%) (Auto) 2.6 % Basophils (%) (Auto) 0.1 % Neutrophils # (Auto) 4.65 K/uL Lymphocytes # (Auto) 1.11 K/uL Monocytes # (Auto) 0.87 K/uL Eosinophils # (Auto) 0.18 K/uL Basophils # (Auto) 0.01 K/uL RDW Standard Deviation 58.8 fL RDW Coefficient of Variation 17.5 % Immature Granulocyte % (Auto) 1.2 % Immature Granulocyte # (Auto) 0.08 K/uL Prothrombin Time 12.3 SECONDS Prothromb Time International Ratio 1.2 Sodium Level 139 mmol/L Potassium Level 3.7 mmol/L Chloride Level 101 mmol/L Carbon Dioxide Level 35 mmol/L Anion Gap 3.0 mmol/L Blood Urea Nitrogen 27 mg/dl Creatinine 1.08 mg/dl Est Creatinine Clear Calc Drug Dose 64.3 ml/min Estimated GFR () 76.3 Estimated GFR (Non- 65.9 BUN/Creatinine Ratio 24.9 Random Glucose 104 mg/dl Calcium Level 7.9 mg/dl Magnesium Level 2.1 mg/dl Assessment and Plan Mr. Garcia is a 77 y/o male with PMHx of CAD S/P CABG, Aortic Dissection S/P Repair, Aortic Valve Replacement x 3 (Mechanical to Cadaver to Current Bovine), S/P Pacer/ICD, AAA measuring 6.1 cm, Systolic CHF with EF 35-40%, CKD Stage III , Peripheral Vascular Disease, Atrial Fibrillation, L Renal Mass, Transverse Myelitis, and Hypothyroidism who presents to the ED c/o fall resulting in L hip pain. L Hip Fracture S/P L Cemented Bipolar Hemiarthroplasty on 06/25: - Tylenol 1 g IV Q8H PRN, patient wants to avoid opiates - INR subtherapeutic on 06/27, was reversed for surgery, continue Coumadin, INR 1.2 - Orthopedics following - hemovac removed, dressing changes, no significant bleeding but still with serosanguinous drainage Acute blood loss anemia after surgery - EBL was only 250cc and no significant bleeding in drain - Hb down to 8.0 yesterday, transfused 1 unit, Hb up to 8.6 - check H/H this afternoon again to make sure Hb stable Acute hypoxia and desaturations - certainly multifactorial with anemia, possibly atelectasis - patient is sitting upright most of the day, taking deep breaths with incentive spirometer - still requiring oxygen today - likely some volume overload with holding Bumex, resuming Bumex 2mg BID today Extensive Cardiac History: - CAD S/P CABG, Aortic Dissection S/P Repair, AAA at 6.1 cm, AVR x 3 (Current Bovine), Atrial Fibrillation, S/P Pacer/ICD, Systolic CHF EF 35-40% - Amiodarone 200 mg daily and Toprol-XL reduced to 50 mg daily - Bumex 2mg PO BID resumed today, already with diuresis of 1000cc CKD Stage III: STABLE - Continue to monitor kidney function especially after surgical intervention - avoid nephrotoxic agents when able - Cr stable at 1.0, still at baseline L Renal Mass: Concerning for RCC - STABLE - Patient has only opted for minimal intervention for this renal mass - he was supposed to have cryotherapy done by urology however needed clearance due to his AAA; per review of outpatient records states he was seen by Dr. Dunaway who states no repair was necessary at this time - urology plans to perform procedure in August 2017 Transverse Myelitis: STABLE - Patient reports no worsening of issues prior to this fall - states his left leg is more "gimpy" compared to his right leg Hypothyroidism: - Synthroid 25 mcg daily DVT Prophylaxis: SCDs Code Status: DO NOT RESUSCITATE keep on tele today, may be ready for medical floor tomorrow diurese with Bumex Continued [facility] stay due to: multiple IV medications needed Discharge planning: uncertain
[2017-06-29 14:23] LABS: HEMATOCRIT 26.9 % (42-52); HEMOGLOBIN 8.3 g/dL (14.0-18.0)
[2017-06-29] MEDS ORDERED: WARFARIN SOD 1.25 MG TAB PO SCH (16:00)
--- NOTE | 2017-06-29 16:00 | NUR ---
A: Resting in bed, denied pain, taught pain scale, sinus rhythm with first degree block and IVCD, left leg dressing intact with minimal serosanguineous shadowing.
--- NOTE | 2017-06-29 18:33 | NUR ---
RD At Risk Screen completed, see linked note. Level of care I. Addendum: 06/29/17 at [address] Amended: Links added.
[2017-06-29] MEDS: ACETAMINOPHEN IV 1000MG/100ML IV PRN (20:00)
--- NOTE | 2017-06-29 20:00 | NUR ---
A: Two person asst to dangle, dangled for approximately 30-mins and tolerated well, changed hip dressing, most of the serosanguineous drainage was coming from hemovac removal site.
[2017-06-29] MEDS: DOCUSATE SODIUM 100 MG CAP PO SCH (21:10)
[2017-06-29] MEDS: PRAVASTATIN SOD 40 MG TAB PO SCH (21:10)
[2017-06-29] MEDS: TAMSULOSIN HCL 0.4 MG CAP PO SCH (21:10)
[2017-06-29] MEDS: DOCUSATE SODIUM/SENNA 50/8.6MG TAB PO SCH (21:10)
[2017-06-30] VITALS (8 sets, daily range): BP systolic 89–111; BP diastolic 47–55; PULSE 75–84; TEMP 36.6–37.5; O2SAT 91–100
--- NOTE | 2017-06-30 | NUR ---
A: A/O. VSS ON 4L 02 OXYMASK. SR ON TELE. DENIES PAIN OR NAUSEA. DE LEON INTACT/PATENT. +CMS. HIP DSG CDI. SCDS ON. CALL WELCH IN REACH
--- NOTE | 2017-06-30 04:00 | NUR ---
A: NO CHANGE IN ASSESSMENT.
[2017-06-30 05:54] LABS: BASO % 0.4 %; BASO ABS # 0.03 K/uL (0-0.2); EOS % 3.4 %; EOS ABS # 0.23 K/uL (0-0.5); HEMATOCRIT 28.2 % (42-52); HEMOGLOBIN 8.7 g/dL (14.0-18.0); IG# 0.14 K/uL (0.00-0.02); LYMPH ABS # 1.37 K/uL (1.2-3.4); MEAN CELL VOLUME 91.9 fL (80-100); MEAN CORPUSCULAR HEMOGLOBIN 28.3 pg (25-34); MEAN CORPUSCULAR HGB CONC 30.9 g/dl (32-36); MONO % 12.9 %; MONO ABS # 0.88 K/uL (0.11-0.59); NEUT % 61.3 %; NEUT ABS # 4.19 K/uL (1.4-6.5); NUCLEATED RED BLOOD CELL ABS 0.02 K/uL (0-0); PLATELET COUNT 113 K/uL (130-400); RED CELL DISTRIBUTION WIDTH CV 17.2 % (11.5-14.5); RED CELL DISTRIBUTION WIDTH SD 57.8 fL (36.4-46.3); WHITE BLOOD COUNT 6.84 K/uL (4.8-10.8)
[2017-06-30] MEDS: LEVOTHYROXINE 25 MCG TAB PO SCH (05:55)
[2017-06-30 06:25] LABS: CALCIUM 7.9 mg/dl (8.5-10.1); CREATININE 1.13 mg/dl (0.60-1.40); POTASSIUM 3.5 mmol/L (3.5-5.1)
[2017-06-30] MEDS: METOPROLOL SUCC 50MG EXT REL TAB PO SCH (07:42)
[2017-06-30] MEDS: POLYETHYLENE (MIRALAX) 17 GM PACK PO SCH (07:42)
[2017-06-30] MEDS: BUMETANIDE 1 MG TAB PO SCH ×2 (07:42→16:35)
[2017-06-30] MEDS: FAMOTIDINE 20 MG TAB PO SCH (07:42)
[2017-06-30] MEDS: AMIODARONE 200 MG TAB PO SCH (07:42)
--- NOTE | 2017-06-30 08:00 | NUR ---
A: Assessment completed. Patient is alert and oriented. Telemetry in place, sinus with first degree block/ivcd. Patients am care completed. Left hip dressing changed, with drainage noted. Patient oob to chair with assist and walker this am.Denies any pain or resp issues. Saline lock,site wnl. No needs or concerns at this time. Encourage patient to use triflow and scd are on. Call miner in reach. Will continue to monitor. See emr assessment
--- NOTE | 2017-06-30 10:03 | Orthopedic Progress Note ---
Orthopedic Progress Note Date of Service Jun 30, 2017. Subjective Post OP Day: 5 Reports: feeling well, pain controlled w PO medications, Denies: complaints, chest pain, SOB, nausea / vomiting, light headedness, calf pain Additional Notes: Hgb 8.7 Patient states he feels much better today. Objective calves soft nontender, N/V intact, capillary refill less than 2 sec., incision C /D/I, A&O x3, toes mobile Still with some scant serosanguinous drainage, no erythema, melanie in tact, skin edges approximated well. Date Time Temp Pulse Resp B/P (MAP) Pulse Ox O2 Delivery O2 Flow Rate FiO2 06/30/17 07:18 37.1 82 20 106/53 (70) 91 Nasal Cannula 3.0 06/30/17 04:23 36.6 76 20 111/53 (72) 97 Oxymask 2.0 06/30/17 04:00 Oxymask 4.0 06/30/17 00:30 37.1 75 22 89/47 (61) 96 2.0 06/30/17 00:00 Oxymask 4.0 06/29/17 21:08 37.3 06/29/17 20:00 95 Oxymask 2.0 06/29/17 19:36 38.2 79 21 99/45 (63) 92 Humidified Air 2.0 06/29/17 16:00 96 Nasal Cannula 2.0 Humidified Air 06/29/17 15:21 37.2 74 22 105/51 (69) 96 Humidified Air 4.5 06/29/17 12:32 37.3 74 20 98/42 (60) 97 Nasal Cannula 4.0 Humidified Oxygen 06/29/17 12:00 Nasal Cannula 2.0 Laboratory Results 24 Hours: Test 06/29/17 14:12 06/30/17 05:24 Hematocrit 26.9 % 28.2 % Hemoglobin 8.3 g/dL 8.7 g/dL White Blood Count 6.84 K/uL Red Blood Count 3.07 M/uL Mean Corpuscular Volume 91.9 fL Mean Corpuscular Hemoglobin 28.3 pg Mean Corpuscular Hemoglobin Concent 30.9 g/dl Platelet Count 113 K/uL Mean Platelet Volume 11.0 fL Neutrophils (%) (Auto) 61.3 % Lymphocytes (%) (Auto) 20.0 % Monocytes (%) (Auto) 12.9 % Eosinophils (%) (Auto) 3.4 % Basophils (%) (Auto) 0.4 % Neutrophils # (Auto) 4.19 K/uL Lymphocytes # (Auto) 1.37 K/uL Monocytes # (Auto) 0.88 K/uL Eosinophils # (Auto) 0.23 K/uL Basophils # (Auto) 0.03 K/uL Assessment & Plan Assessment: POD #5 Left hip bipolar hemiarthroplasty Plan: PT/ OT- WBAT DVT proph- Coumadin D/C Planning- Rehab As per primary team Ortho will sign off at this time, thank you for this consultation.
--- NOTE | 2017-06-30 10:07 | Consultant Recommendations ---
Vice President Quality Recommendations Date of Service Jun 30, 2017. Vice President Quality Recommendations S/p Left hip bip[olar hemiarthroplasty 06/25/17 Weight bear as tolerated with walker. Hip precautions. Ice as needed. Keep incision clean, dry and in tact. Dressing changes as needed for drainage. DVT proph per PCP- Coumadin Follow up with Dr. Harkins 12-14 days post op, call [facility] at [phone] to make appt.
[2017-06-30 10:55] LABS: INR 1.2 (0.9-1.1)
--- NOTE | 2017-06-30 12:00 | NUR ---
A:Assessment completed. Patient oob to chair this am with assist of two and walker. Patient back to bed with max of two, very weak left leg. Denies any pain or resp issues. Denies any needs or concerns at this time. Call miner in reach. Will continue to monitor. See emr assessment
--- NOTE | 2017-06-30 15:11 | Family Medicine Progress Note ---
Progress Note Date of Service Jun 30, 2017. Subjective Pt evaluation today including: conversation w/ patient, physical exam, chart review, lab review Pain: improved L hip pain PO Intake: tolerating Voiding: suggs catheter in place Telemetry: Sinus 70s-80s This AM Mr. Garcia reports improvement in L hip pain and shortness of breath despite being on oxygen. Constitutional: No fever, No chills Respiratory: + shortness of breath Cardiovascular: No chest pain Abdomen: No pain, No nausea, No vomiting Musculoskeletal: + problem reported (L hip pain - improved) Male : No dysuria Medications Current Inpatient Medications Medications (Trade) Dose Ordered Sig/Deion Route Start Time Stop Time Status Last Admin Dose Admin Al Hydrox/Mg Hydrox/Simethicone (Maalox Max Susp) 15 ml Q4H PRN PO 06/24/17 16:15 07/24/17 16:14 Magnesium Hydroxide (Milk Of Magnesia Susp) 30 ml Q12H PRN PO 06/24/17 16:15 07/24/17 16:14 Ondansetron HCl (Zofran Inj) 4 mg Q6H PRN IV 06/24/17 16:15 07/24/17 16:14 Naloxone HCl (Narcan Inj) 0.1 mg PRN PRN IV 06/24/17 16:15 07/24/17 16:14 Senna/Docusate Sodium (Senokot S Tab) 2 tab HS PO 06/24/17 21:00 07/24/17 20:59 06/29/17 21:10 2 TAB Magnesium Hydroxide (Milk Of Magnesia Susp) 30 ml DAILY PRN PO 06/24/17 16:15 07/24/17 16:14 Bisacodyl (Dulcolax Supp) 10 mg DAILY PRN [place] 06/24/17 16:15 07/24/17 16:14 Sodium Biphosphate/ Sodium Phosphate (Fleet Enema) 132 ml PRN PRN [place] 06/24/17 16:15 Amiodarone HCl (Cordarone Tab) 200 mg QAM PO 06/25/17 09:00 07/25/17 08:59 06/30/17 07:42 200 MG Docusate Sodium (coLACE CAP) 100 mg QPM PO 06/24/17 21:00 07/24/17 20:59 06/29/17 21:10 100 MG Famotidine (Pepcid Tab) 20 mg QAM PO 06/25/17 09:00 07/25/17 08:59 06/30/17 07:42 20 MG Levothyroxine Sodium (Synthroid Tab) 25 mcg DAILYBB PO 06/25/17 06:00 07/25/17 05:59 06/30/17 05:55 25 MCG Nitroglycerin (Nitrostat Tab) 0.4 mg PRN PRN [place] 06/24/17 16:15 07/24/17 16:14 Pravastatin Sodium (Pravachol Tab) 40 mg HS PO 06/24/17 21:00 07/24/17 20:59 06/29/17 21:10 40 MG Tamsulosin HCl (Flomax Cap) 0.4 mg HS PO 06/24/17 21:00 07/24/17 20:59 06/29/17 21:10 0.4 MG Morphine Sulfate (MoRPHine SULFATE INJ) 1 mg Q2H PRN IV 06/24/17 16:30 07/08/17 16:29 06/25/17 06:10 1 MG Hydralazine HCl (HydrALAZINE INJ) 10 mg Q6 PRN IV. 06/24/17 17:30 07/24/17 17:29 Metoprolol Succinate (Toprol Xl Tab) 50 mg QAM PO 06/25/17 09:00 07/25/17 08:59 06/30/17 07:42 50 MG Acetaminophen 100 ml @ 400 mls/hr Q8H PRN IV 06/27/17 03:45 07/27/17 03:44 06/29/17 20:00 400 MLS/HR Bumetanide (Bumex Tab) 2 mg BID17 PO 06/29/17 09:00 07/29/17 08:59 06/30/17 07:42 2 MG Polyethylene (Miralax Powder Packet) 17 gm DAILY PO 06/29/17 09:15 07/24/17 16:14 06/30/17 07:42 17 GM Warfarin Sodium (Coumadin Tab) 5 mg DAILY@16 PO 06/30/17 16:00 07/05/17 15:59 Objective Vital Signs Date Time Temp Pulse Resp B/P (MAP) Pulse Ox O2 Delivery O2 Flow Rate FiO2 06/30/17 12:00 Nasal Cannula 2.0 06/30/17 10:51 36.9 79 20 110/55 (73) 98 Nasal Cannula 2.0 06/30/17 08:00 Nasal Cannula 2.0 06/30/17 07:18 37.1 82 20 106/53 (70) 91 Nasal Cannula 3.0 06/30/17 04:23 36.6 76 20 111/53 (72) 97 Oxymask 2.0 06/30/17 04:00 Oxymask 4.0 06/30/17 00:30 37.1 75 22 89/47 (61) 96 2.0 06/30/17 00:00 Oxymask 4.0 06/29/17 21:08 37.3 06/29/17 20:00 95 Oxymask 2.0 06/29/17 19:36 38.2 79 21 99/45 (63) 92 Humidified Air 2.0 06/29/17 16:00 96 Nasal Cannula 2.0 Humidified Air 06/29/17 15:21 37.2 74 22 105/51 (69) 96 Humidified Air 4.5 Physical Exam Eyes: normal inspection Neck: supple Respiratory/Chest: lungs clear, normal breath sounds, no respiratory distress Cardiovascular: regular rate, rhythm, no murmur Abdomen: normal bowel sounds, non tender, soft Extremities: non-tender, no pedal edema, + pertinent finding (No L hip TTP; dressing intact and clean (changed prior to exam per pt)) Neurologic/Psychiatric: alert, oriented x 3 Laboratory Results 06/30/17 05:24 Red Blood Count 3.07, Mean Corpuscular Volume 91.9, Mean Corpuscular Hemoglobin 28.3, Mean Corpuscular Hemoglobin Concent 30.9, Mean Platelet Volume 11.0, Neutrophils (%) (Auto) 61.3, Lymphocytes (%) (Auto) 20.0, Monocytes (%) (Auto) 12.9, Eosinophils (%) (Auto) 3.4, Basophils (%) (Auto) 0.4, Neutrophils # (Auto ) 4.19, Lymphocytes # (Auto) 1.37, Monocytes # (Auto) 0.88, Eosinophils # (Auto ) 0.23, Basophils # (Auto) 0.03 06/30/17 05:24 Test 06/30/17 05:24 06/30/17 10:14 White Blood Count 6.84 K/uL (4.8-10.8) Red Blood Count 3.07 M/uL (4.7-6.1) Hemoglobin 8.7 g/dL (14.0-18.0) Hematocrit 28.2 % (42-52) Mean Corpuscular Volume 91.9 fL (80-100) Mean Corpuscular Hemoglobin 28.3 pg (25-34) Mean Corpuscular Hemoglobin Concent 30.9 g/dl (32-36) Platelet Count 113 K/uL (130-400) Mean Platelet Volume 11.0 fL (7.4-10.4) Neutrophils (%) (Auto) 61.3 % Lymphocytes (%) (Auto) 20.0 % Monocytes (%) (Auto) 12.9 % Eosinophils (%) (Auto) 3.4 % Basophils (%) (Auto) 0.4 % Neutrophils # (Auto) 4.19 K/uL (1.4-6.5) Lymphocytes # (Auto) 1.37 K/uL (1.2-3.4) Monocytes # (Auto) 0.88 K/uL (0.11-0.59) Eosinophils # (Auto) 0.23 K/uL (0-0.5) Basophils # (Auto) 0.03 K/uL (0-0.2) RDW Standard Deviation 57.8 fL (36.4-46.3) RDW Coefficient of Variation 17.2 % (11.5-14.5) Immature Granulocyte % (Auto) 2.0 % Immature Granulocyte # (Auto) 0.14 K/uL (0.00-0.02) Nucleated RBC Absolute Count (auto) 0.02 K/uL (0-0) Nucleated Red Blood Cells % 0.3 % Red Blood Cell Morphology Unremarkable Anion Gap 3.0 mmol/L (3-11) Est Creatinine Clear Calc Drug Dose 61.4 ml/min Estimated GFR () 72.3 Estimated GFR (Non- 62.4 BUN/Creatinine Ratio 26.5 (10-20) Calcium Level 7.9 mg/dl (8.5-10.1) Prothrombin Time 12.3 SECONDS (9.0-12.0) Prothromb Time International Ratio 1.2 (0.9-1.1) Assessment and Plan Mr. Garcia is a 77 y/oM with hx of CAD s/p CABG, aortic dissection s/p repair, aortic valve replacement x 3 (Mechanical to Cadaver to Current Bovine), s/p Pacer/ICD, AAA measuring 6.1 cm, Systolic CHF with EF 35-40%, CKD Stage III, Peripheral Vascular Disease, Atrial Fibrillation, L Renal Mass, Transverse Myelitis, and Hypothyroidism admitted for L hip pain s/p fall. Now post op (L hemiarthroplasty) day 5. L Hip Fracture S/P L Cemented Bipolar Hemiarthroplasty on 06/25 - Orthopedics signed off - hemovac removed, dressing changes only now - Tylenol 1 g IV Q8H PRN, patient wants to avoid opiates - INR remains subtherapeutic 1.2 today on Coumadin, was reversed for surgery ( from 1.9 using 3 units of FFP) - Coumadin increased to 5mg daily - Will recheck INR tomorrow Acute blood loss anemia after surgery - EBL was only 250cc and no significant bleeding in drain - Hb improved to 8.7 today s/p 1 unit pRBC on 06/29 - Follow CBC Acute hypoxia and desaturations - likely multifactorial given anemia, possibly atelectasis and some volume overload - sitting upright most of the day, taking deep breaths with incentive spirometer - still requiring oxygen 2L Extensive Cardiac History - CAD S/P CABG, Aortic Dissection S/P Repair, AAA at 6.1 cm, AVR x 3 (Current Bovine), Atrial Fibrillation, S/P Pacer/ICD, Systolic CHF EF 35-40% - Continue Amiodarone 200 mg daily - Continue Toprol-XL 50 mg daily - Continue Bumex 2mg PO BID Hypothyroidism - Continue Synthroid 25 mcg daily CKD Stage III: STABLE - Monitor kidney function. Avoid nephrotoxic agents - Cr stable at 1.13, baseline L Renal Mass: Concerning for RCC - STABLE - Patient opted for minimal intervention - was supposed to have cryotherapy done by urology however needed clearance due to his AAA; per review of outpatient records states he was seen by Dr. Dunaway who states no repair was necessary at this time - urology plans to perform procedure in August 2017 Transverse Myelitis: STABLE - Patient reports no worsening of issues prior to this fall - states his left leg is more "gimpy" compared to his right leg DVT Prophylaxis: - Discussed with Dr. Barter risk for DVT and subtherapeutic INR with Coumadin only. However, did not recommend starting Lovenox given risk for hematoma development unless INR does not improve within 48 hours with Coumadin. - Currently on Coumadin only for DVT prophylaxis Code Status: DO NOT RESUSCITATE D/C: pending clinical improvement [facility] Resident Involvement: Resident Care Provided Care Provided: Adult Hospital Medicine History Resident Physician Supervision Note: I was present with Dr. Fuller during the history and exam. I discussed the case with the resident and agree with the findings and plan as documented in the note. Any exceptions or clarifications are listed here. Pt reports significantly improved left hip discomfort following surgery but reports considerable weakness and difficulty while standing with nursing/PT. His shortness of breath has also improved from previously, though he c/o intermittent nonproductive cough. Reports no fever, nausea, lightheadedness, chest pain, sensory changes, palpitations. General Appearance: no apparent distress, obese Respiratory: chest non-tender, no respiratory distress, decreased breath sounds Cardiovascular: normal peripheral pulses, regular rate, rhythm, systolic murmur (09/02) Gastrointestinal: normal bowel sounds, non tender, soft, no organomegaly Extremities: other (no TTP, dressing CDI on left hip) Assessment/Plan 77 y/o male h/o CAD s/p CABG w/ pacer/ICD, AF, sCHF, aortic dissection s/p repair, AVR x 3, PVD, L renal mass, transverse myelitits, hypothyroidism p/w L hip fracture s/p fall now s/p hemiarthroplasty. L hip fracture s/p hemiarthroplasty - dressing changes at wound site, PT consulted and recs [facility] on discharge Atrial fibrillation - after discussion with orthopaedics, will defer bridging at this time and increase warfarin and monitor INR Anemia, likely postoperative and hemodilutional - monitor CBC, guiac if decreasing Hypoxia - continue IS, wean O2 as tolerated Systolic CHF in the setting of CAD s/p CABG w/ pacer/ICD - continue amiodarone, meotprolol, bumex CKD III - stable, avoid nephrotoxic medications Hypothyroidism - continue synthroid DNR
--- NOTE | 2017-06-30 16:00 | NUR ---
A: Patient is refusing to have suggs catheter discontinued at this time.
[2017-06-30] MEDS: WARFARIN SOD 5 MG TAB PO SCH (16:34)
[2017-06-30] MEDS ORDERED: ACETAMINOPHEN 325 MG TAB PO PRN (16:45)
[2017-06-30 18:27] LABS: BASO % 0.3 %; BASO ABS # 0.02 K/uL (0-0.2); EOS % 2.7 %; EOS ABS # 0.18 K/uL (0-0.5); HEMATOCRIT 28.2 % (42-52); HEMOGLOBIN 8.8 g/dL (14.0-18.0); IG# 0.17 K/uL (0.00-0.02); LYMPH ABS # 1.29 K/uL (1.2-3.4); MEAN CELL VOLUME 91.3 fL (80-100); MEAN CORPUSCULAR HEMOGLOBIN 28.5 pg (25-34); MEAN CORPUSCULAR HGB CONC 31.2 g/dl (32-36); MEAN PLATELET VOLUME 10.2 fL (7.4-10.4); MONO % 13.4 %; MONO ABS # 0.91 K/uL (0.11-0.59); NEUT % 62.1 %; NEUT ABS # 4.22 K/uL (1.4-6.5); PLATELET COUNT 131 K/uL (130-400); RED CELL DISTRIBUTION WIDTH CV 17.1 % (11.5-14.5); RED CELL DISTRIBUTION WIDTH SD 56.7 fL (36.4-46.3); WHITE BLOOD COUNT 6.79 K/uL (4.8-10.8)
[2017-06-30 18:42] LABS: INR 1.2 (0.9-1.1)
[2017-06-30 18:45] LABS: CALCIUM 7.8 mg/dl (8.5-10.1); CREATININE 1.18 mg/dl (0.60-1.40); POTASSIUM 3.6 mmol/L (3.5-5.1)
[2017-06-30] MEDS: DOCUSATE SODIUM 100 MG CAP PO SCH (21:02)
[2017-06-30] MEDS: PRAVASTATIN SOD 40 MG TAB PO SCH (21:02)
[2017-06-30] MEDS: TAMSULOSIN HCL 0.4 MG CAP PO SCH (21:02)
[2017-06-30] MEDS: DOCUSATE SODIUM/SENNA 50/8.6MG TAB PO SCH (21:02)
--- NOTE | 2017-06-30 21:25 | NUR ---
A: Pt A&Ox4, all vitals WNL on 2L. Tolerating an AHA/low Na+ diet. max 2 assist with a walker. Denies numbness/tingling, SOB, chest pain, flatus and pain. Saline lock WNL in the right hand. Lungs are clear to diminished throughout. Sandoval intact and draining clear and yellow. Last BM today. No edema noted. Positive distal pulses. Yellow socks, knee high teds, SCDs. 4 blisters open to left thigh and buttock, optifoams placed. Sacrum has large fluid filled blister with dark discolored spots, vasaline gauze placed and an optifoam. Left hip melanie intact and well approximated. 4x4 & ABD and medipore tape applied. D/C plans uncertain at this time.
[2017-07-01 06:10] LABS: INR 1.2 (0.9-1.1)
[2017-07-01] MEDS: LEVOTHYROXINE 25 MCG TAB PO SCH (06:11)
[2017-07-01 07:01] VITALS: BP 103/56; PULSE 85; TEMP 36.9; O2SAT 95
[2017-07-01 07:20] VITALS: O2SAT 94
--- NOTE | 2017-07-01 08:01 | NUR ---
case management note. pt plans to go to [facility] at D/C. He has been accepted and his insurance is a notification only. pt transferred to med surg room 376. report to unit catalytic case operator. appropriate catalytic case operator to follow. Addendum: 07/01/17 at 1119 by Carlie [facility] Spoke with [facility] Kori salas and confirmed that [facility] can accept Pt at discharge pending bed availability.
[2017-07-01] MEDS: FAMOTIDINE 20 MG TAB PO SCH (08:47)
[2017-07-01] MEDS: BUMETANIDE 1 MG TAB PO SCH (08:47)
[2017-07-01] MEDS: METOPROLOL SUCC 50MG EXT REL TAB PO SCH (08:47)
[2017-07-01] MEDS: AMIODARONE 200 MG TAB PO SCH (08:47)
[2017-07-01] MEDS: POLYETHYLENE (MIRALAX) 17 GM PACK PO SCH (08:48)
--- NOTE | 2017-07-01 08:51 | Family Medicine Progress Note ---
Progress Note Date of Service Jul 01, 2017. Subjective Pt evaluation today including: conversation w/ patient, physical exam, chart review, lab review Pain: Denies any pain this AM PO Intake: tolerating Voiding: no voiding problems This AM Mr. Garcia denies any L hip pain. Reports improvement in fatigue and sob. Denies cp, RAMOS/dizz, n/v, d/c, abdominal pain or pain in LEs Constitutional: No fever, No chills Respiratory: + shortness of breath Cardiovascular: No chest pain Abdomen: No pain, No nausea, No vomiting, No diarrhea, No constipation Male : No dysuria Medications Current Inpatient Medications Medications (Trade) Dose Ordered Sig/Deion Route Start Time Stop Time Status Last Admin Dose Admin Al Hydrox/Mg Hydrox/Simethicone (Maalox Max Susp) 15 ml Q4H PRN PO 06/24/17 16:15 07/24/17 16:14 Magnesium Hydroxide (Milk Of Magnesia Susp) 30 ml Q12H PRN PO 06/24/17 16:15 07/24/17 16:14 Ondansetron HCl (Zofran Inj) 4 mg Q6H PRN IV 06/24/17 16:15 07/24/17 16:14 Naloxone HCl (Narcan Inj) 0.1 mg PRN PRN IV 06/24/17 16:15 07/24/17 16:14 Senna/Docusate Sodium (Senokot S Tab) 2 tab HS PO 06/24/17 21:00 07/24/17 20:59 06/30/17 21:02 2 TAB Magnesium Hydroxide (Milk Of Magnesia Susp) 30 ml DAILY PRN PO 06/24/17 16:15 07/24/17 16:14 Bisacodyl (Dulcolax Supp) 10 mg DAILY PRN [place] 06/24/17 16:15 07/24/17 16:14 Sodium Biphosphate/ Sodium Phosphate (Fleet Enema) 132 ml PRN PRN [place] 06/24/17 16:15 Amiodarone HCl (Cordarone Tab) 200 mg QAM PO 06/25/17 09:00 07/25/17 08:59 06/30/17 07:42 200 MG Docusate Sodium (coLACE CAP) 100 mg QPM PO 06/24/17 21:00 07/24/17 20:59 06/30/17 21:02 100 MG Famotidine (Pepcid Tab) 20 mg QAM PO 06/25/17 09:00 07/25/17 08:59 06/30/17 07:42 20 MG Levothyroxine Sodium (Synthroid Tab) 25 mcg DAILYBB PO 06/25/17 06:00 07/25/17 05:59 07/01/17 06:11 25 MCG Nitroglycerin (Nitrostat Tab) 0.4 mg PRN PRN [place] 06/24/17 16:15 07/24/17 16:14 Pravastatin Sodium (Pravachol Tab) 40 mg HS PO 06/24/17 21:00 07/24/17 20:59 06/30/17 21:02 40 MG Tamsulosin HCl (Flomax Cap) 0.4 mg HS PO 06/24/17 21:00 07/24/17 20:59 06/30/17 21:02 0.4 MG Morphine Sulfate (MoRPHine SULFATE INJ) 1 mg Q2H PRN IV 06/24/17 16:30 07/08/17 16:29 06/25/17 06:10 1 MG Hydralazine HCl (HydrALAZINE INJ) 10 mg Q6 PRN IV. 06/24/17 17:30 07/24/17 17:29 Metoprolol Succinate (Toprol Xl Tab) 50 mg QAM PO 06/25/17 09:00 07/25/17 08:59 06/30/17 07:42 50 MG Acetaminophen 100 ml @ 400 mls/hr Q8H PRN IV 06/27/17 03:45 07/27/17 03:44 06/29/17 20:00 400 MLS/HR Bumetanide (Bumex Tab) 2 mg BID17 PO 06/29/17 09:00 07/29/17 08:59 06/30/17 16:35 2 MG Polyethylene (Miralax Powder Packet) 17 gm DAILY PO 06/29/17 09:15 07/24/17 16:14 06/30/17 07:42 17 GM Warfarin Sodium (Coumadin Tab) 5 mg DAILY@16 PO 06/30/17 16:00 07/05/17 15:59 06/30/17 16:34 5 MG Acetaminophen (Tylenol Tab) 650 mg Q4H PRN PO 06/30/17 16:45 07/30/17 16:44 Objective Vital Signs Date Time Temp Pulse Resp B/P (MAP) Pulse Ox O2 Delivery O2 Flow Rate FiO2 07/01/17 07:01 36.9 85 16 103/56 (72) 95 Nasal Cannula 2.0 07/01/17 00:10 Nasal Cannula 2.0 06/30/17 23:00 37.5 84 18 108/54 (72) 94 Nasal Cannula 2.0 06/30/17 19:37 37.4 79 18 100 2.0 06/30/17 16:00 100 Nasal Cannula 2.0 06/30/17 15:00 37.4 79 18 110/51 (70) 100 Nasal Cannula 2.0 06/30/17 12:00 Nasal Cannula 2.0 06/30/17 10:51 36.9 79 20 110/55 (73) 98 Nasal Cannula 2.0 Physical Exam General Appearance: no apparent distress Eyes: normal inspection, sclerae normal Neck: supple, no JVD Respiratory/Chest: lungs clear, + decreased breath sounds Cardiovascular: regular rate, rhythm, no murmur Abdomen: normal bowel sounds, non tender, soft Extremities: non-tender, no pedal edema Neurologic/Psychiatric: alert, oriented x 3 Skin: warm/dry Laboratory Results 06/30/17 18:20 Red Blood Count 3.09, Mean Corpuscular Volume 91.3, Mean Corpuscular Hemoglobin 28.5, Mean Corpuscular Hemoglobin Concent 31.2, Mean Platelet Volume 10.2, Neutrophils (%) (Auto) 62.1, Lymphocytes (%) (Auto) 19.0, Monocytes (%) (Auto) 13.4, Eosinophils (%) (Auto) 2.7, Basophils (%) (Auto) 0.3, Neutrophils # (Auto ) 4.22, Lymphocytes # (Auto) 1.29, Monocytes # (Auto) 0.91, Eosinophils # (Auto ) 0.18, Basophils # (Auto) 0.02 06/30/17 18:20 Test 06/30/17 18:20 07/01/17 05:42 White Blood Count 6.79 K/uL (4.8-10.8) Red Blood Count 3.09 M/uL (4.7-6.1) Hemoglobin 8.8 g/dL (14.0-18.0) Hematocrit 28.2 % (42-52) Mean Corpuscular Volume 91.3 fL (80-100) Mean Corpuscular Hemoglobin 28.5 pg (25-34) Mean Corpuscular Hemoglobin Concent 31.2 g/dl (32-36) Platelet Count 131 K/uL (130-400) Mean Platelet Volume 10.2 fL (7.4-10.4) Neutrophils (%) (Auto) 62.1 % Lymphocytes (%) (Auto) 19.0 % Monocytes (%) (Auto) 13.4 % Eosinophils (%) (Auto) 2.7 % Basophils (%) (Auto) 0.3 % Neutrophils # (Auto) 4.22 K/uL (1.4-6.5) Lymphocytes # (Auto) 1.29 K/uL (1.2-3.4) Monocytes # (Auto) 0.91 K/uL (0.11-0.59) Eosinophils # (Auto) 0.18 K/uL (0-0.5) Basophils # (Auto) 0.02 K/uL (0-0.2) RDW Standard Deviation 56.7 fL (36.4-46.3) RDW Coefficient of Variation 17.1 % (11.5-14.5) Immature Granulocyte % (Auto) 2.5 % Immature Granulocyte # (Auto) 0.17 K/uL (0.00-0.02) Ovalocytes 1+ Anion Gap 4.0 mmol/L (3-11) Est Creatinine Clear Calc Drug Dose 59.0 ml/min Estimated GFR () 68.6 Estimated GFR (Non- 59.2 BUN/Creatinine Ratio 25.7 (10-20) Calcium Level 7.8 mg/dl (8.5-10.1) Magnesium Level 2.0 mg/dl (1.8-2.4) Prothrombin Time 13.0 SECONDS (9.0-12.0) Prothromb Time International Ratio 1.2 (0.9-1.1) Assessment and Plan Mr. Garcia is a 77 y/oM with hx of CAD s/p CABG, aortic dissection s/p repair, aortic valve replacement x 3 (Mechanical to Cadaver to Current Bovine), s/p Pacer/ICD, AAA measuring 6.1 cm, Systolic CHF with EF 35-40%, CKD Stage III, Peripheral Vascular Disease, Atrial Fibrillation, L Renal Mass, Transverse Myelitis, and Hypothyroidism admitted for L hip pain s/p fall. Now post op (L hemiarthroplasty) day 6 without any L hip pain and improved fatigue/sob. L Hip Fracture S/P L Cemented Bipolar Hemiarthroplasty on 06/25 - Orthopedics signed off - hemovac removed, dressing changes only now - Tylenol 1 g IV Q8H PRN, patient wants to avoid opiates - INR remains subtherapeutic 1.2 again today on Coumadin, was reversed for surgery (from 1.9 using 3 units of FFP) - Coumadin increased to 5mg daily - Will recheck INR tomorrow Acute blood loss anemia after surgery - EBL was only 250cc and no significant bleeding in drain - Hb improved to 8.8 today s/p 1 unit pRBC on 06/29 - Follow CBC Acute hypoxia and desaturations - likely multifactorial given anemia, possibly atelectasis and some volume overload - sitting upright most of the day, taking deep breaths with incentive spirometer - still requiring oxygen 2L with diminished breath sounds Extensive Cardiac History - CAD S/P CABG, Aortic Dissection S/P Repair, AAA at 6.1 cm, AVR x 3 (Current Bovine), Atrial Fibrillation, S/P Pacer/ICD, Systolic CHF EF 35-40% - Continue Amiodarone 200 mg daily - Continue Toprol-XL 50 mg daily - Continue Bumex 2mg PO BID Hypothyroidism - Continue Synthroid 25 mcg daily CKD Stage III: STABLE - Monitor kidney function. Avoid nephrotoxic agents - Cr stable at 1.18, baseline L Renal Mass: Concerning for RCC - STABLE - Patient opted for minimal intervention - was supposed to have cryotherapy done by urology however needed clearance due to his AAA; per review of outpatient records states he was seen by Dr. Dunaway who states no repair was necessary at this time - urology plans to perform procedure in August 2017 Transverse Myelitis: STABLE - Patient reports no worsening of issues prior to this fall - states his left leg is more "gimpy" compared to his right leg DVT Prophylaxis: - Discussed with Dr. Sethi risk for DVT and subtherapeutic INR with Coumadin only. However, did not recommend starting Lovenox given risk for hematoma development unless INR does not improve within 48 hours with Coumadin. - Currently on Coumadin only for DVT prophylaxis Code Status: DO NOT RESUSCITATE D/C: pending bed availability at [facility] Resident Involvement: Resident Care Provided Care Provided: Adult Hospital Medicine History Resident Physician Supervision Note: I was present with Dr. Fuller during the history and exam. I discussed the case with the resident and agree with the findings and plan as documented in the note. Any exceptions or clarifications are listed here. Pt states shortness of breath and exercise tolerance continues to improve from previous and has been able to move short distances while ambulating with his left hip under PT guidance. Reports has been unable to urinate since removal of the suggs catheter which has occurred previously, and for which he has catheterized himself until it resolved (~1 wk). Reports no abd pain, nausea, dysuria, bowel changes, lightheadedness, palpitations. General Appearance: no apparent distress, obese Respiratory: chest non-tender, no respiratory distress, decreased breath sounds , rhonchi (mildly throughout) Cardiovascular: normal peripheral pulses, regular rate, rhythm, no murmur Gastrointestinal: normal bowel sounds, non tender, soft, no organomegaly Assessment/Plan 77 y/o male h/o CAD s/p CABG w/ pacer/ICD, AF, sCHF, aortic dissection s/p repair, AVR x 3, PVD, L renal mass, transverse myelitits, hypothyroidism p/w L hip fracture s/p fall now s/p hemiarthroplasty. L hip fracture s/p hemiarthroplasty - dressing changes at wound site, will benefit from [facility] rehab Atrial fibrillation - initiate prophylactic lovenox and continue warfarin therapy until therapeutic per ortho recommendations Anemia, likely postoperative and hemodilutional - stable Hypoxia - continue IS, wean O2 as tolerated Systolic CHF in the setting of CAD s/p CABG w/ pacer/ICD - continue amiodarone, metoprolol, bumex CKD III - stable, avoid nephrotoxic medications Hypothyroidism - continue synthroid DNR
[2017-07-01] MEDS ORDERED: CMD5 PO (12:43)
[2017-07-01] MEDS ORDERED: ENOX40IN SQ (12:54)
--- NOTE | 2017-07-01 13:06 | Discharge Instructions ---
Discharge Instructions Date of Service Jul 01, 2017. Admission Reason for Admission: Closed Left Hip Fracture Discharge Discharge Diagnosis / Problem: L hip fracture s/p hip bipolar hemiarthroplasty Discharge Goals Goal(s): Decrease discomfort, Diagnostic testing, Therapeutic intervention Activity Recommendations Activity Limitations: per Instructions/Follow-up section . Instructions / Follow-Up Instructions / Follow-Up Mr. Garcia is a 77 y/oM with hx of CAD s/p CABG, aortic dissection s/p repair, aortic valve replacement x 3 (Mechanical to Cadaver to Current Bovine), s/p Pacer/ICD, AAA measuring 6.1 cm, Systolic CHF with EF 35-40%, CKD Stage III, Peripheral Vascular Disease, Atrial Fibrillation, L Renal Mass, Transverse Myelitis, and Hypothyroidism admitted for L hip pain s/p fall. Now post op (L hemiarthroplasty) day 6 without any L hip pain and improved fatigue/sob. L Hip Fracture S/P L Cemented Bipolar Hemiarthroplasty on 06/25 - Orthopedics - Weight bear as tolerated with walker. - Hip precautions. - Ice as needed. - Keep incision clean, dry and in tact. - Dressing changes as needed for drainage. - Follow up with Dr. Harkins 12-14 days post op, call [facility] at [phone] to make appt. - Tylenol 1 g IV Q8H PRN, patient wants to avoid opiates - INR remains subtherapeutic 1.2 again today on Coumadin, was reversed for surgery (from 1.9 using 3 units of FFP) - Coumadin increased to 5mg daily on 06/30/17 (Home dosage was 2.5mg) - Start on Lovenox 40mg SQ daily (for DVT prophylaxis not bridging Lovenox for Afib due to risk of postop hematoma) - stop lovenox 24hrs after INR between 2-3 - Recheck INR on 07/03/17 to ensure therapeutic Acute blood loss anemia after surgery - EBL was only 250cc and no significant bleeding in drain - Hb improved to 8.8 today s/p 1 unit pRBC on 06/29 - Check CBC in 1 week Acute hypoxia and desaturations - likely multifactorial given anemia, possibly atelectasis and some volume overload - sitting upright most of the day, taking deep breaths with incentive spirometer - still requiring oxygen 2L with improved breath sounds today - Aim saturations >= 90% Extensive Cardiac History - CAD S/P CABG, Aortic Dissection S/P Repair, AAA at 6.1 cm, AVR x 3 (Current Bovine), Atrial Fibrillation, S/P Pacer/ICD, Systolic CHF EF 35-40% - Continue Amiodarone 200 mg daily - Continue Toprol-XL 50 mg daily - Continue Bumex 2mg PO BID Hypothyroidism - Continue Synthroid 25 mcg daily Urinary retention - Hx of need for straight caths post surgery/cathetar placement - Pt had trouble urinating this PM - Scheduled straight Caths TID CKD Stage III: STABLE - Monitor kidney function. Avoid nephrotoxic agents - Cr stable at 1.18, baseline L Renal Mass: Concerning for RCC - STABLE - Patient opted for minimal intervention - was supposed to have cryotherapy done by urology however needed clearance due to his AAA; per review of outpatient records states he was seen by Dr. Dunaway who states no repair was necessary at this time - urology plans to perform procedure in August 2017 Transverse Myelitis: STABLE - Patient reports no worsening of issues prior to this fall - states his left leg is more "gimpy" compared to his right leg Current Hospital Diet Patient's current hospital diet: AHA Diet (Heart Healthy), Low Sodium Diet (2gm Na) Discharge Diet Recommended Diet: AHA Diet (Heart Healthy) Procedures Procedures Performed: Cemented Bipolar Hemiarthroplasty Hip Prosthesis Left Pending Studies Studies pending at discharge: no Medical Emergencies . Who to Call and When: Medical Emergencies: If at any time you feel your situation is an emergency, please call 911 immediately. . Non-Emergent Contact Non-Emergency issues call your: Primary Care Provider . . "Provider Documentation" section prepared by Aleksey Fuller. . Supervisor Cutting And Boning Recommendations Supervisor Cutting And Boning Recommendations: S/p Left hip bip[olar hemiarthroplasty 06/25/17 Weight bear as tolerated with walker. Hip precautions. Ice as needed. Keep incision clean, dry and in tact. Dressing changes as needed for drainage. DVT proph per PCP- Coumadin Follow up with Dr. Harkins 12-14 days post op, call [facility] at [phone] to make appt. VTE Core Measure Inpt VTE Proph given/why not?: Warfarin (Coumadin), SCD's
[2017-07-01 13:15] VITALS: BP 103/56; PULSE 85; TEMP 36.9; O2SAT 94
--- NOTE | 2017-07-01 13:54 | Cardiology Follow-Up ---
Subjective Date of Service: Jul 01, 2017. Pt evaluation today including: conversation w/ patient, conversation w/ family , physical exam, lab review, review of studies, review of inpatient medication list History of Present Illness This is a very pleasant 77-year-old gentleman with a long and complex cardiovascular history. In brief, he had a type A dissection in May of 2001, he had emergency transfer to [facility] and had a repair of the ascending aorta with a graft and a [address] Toni mechanical valve. Postoperatively he had severe aortic insufficiency, was reexplored for cardiac tamponade and mediastinal bleeding and had hemostasis obtained at that time. 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 Postoperatively he did have atrial fibrillation. He required redo aortic valve replacement in September of 2001 for a perivalvular leak and had a CryoLife cadaver valve as well as single vessel bypass surgery performed at that time. His ejection fraction was 35% in September 2001 and he had an ICD subsequently implanted April 09, 2002 (Medtronic model 7274). This was replaced October 13, [address] Toni model V258, this also reached [facility] and was replaced on October 27, [address] Toni Ellipse which remains in place. I believe he required repeat aortic valve replacement surgery at [facility] June 28, 2008, and on November 23, 2008 he had an abdominal aortic aneurysm repair at [facility]. An echocardiogram November 02, 2012 showed mild left ventricular dilatation and with an ejection fraction of 45 % with a properly functioning aortic valve. He he also has atrial arrhythmias identified following being seen acutely on April 25, 2010 with significant fluid retention and weight gain. He was diuresed with improvement in his symptoms and decrease in his fluid retention. He was seen for ICD followup on June 14, 2010, at that time ICD diagnostics demonstrated atrial flutter starting around April 06, 2010. It is likely that this rhythm change was a component of his development of fluid retention. I started him on warfarin anticoagulation at that time and scheduled him for cardioversion which was performed on 07/23/2010. I believe he has remained in sinus rhythm since on amiodarone and warfarin. On 06/24/2017 he slipped and fell, breaking his left hip. He reports that he tripped and did not lose consciousness, had no lightheadedness or dizziness leading to the fall. He has had no cardiovascular symptoms, no angina and he is been quite active until this happened. He had hip surgery and is recovering from that. He has no cardiovascular complaints, he does have minor hip pain. Social History Smoking Status: Former Smoker History of Alcohol Use: No Review of Systems Respiratory: + shortness of breath Cardiac: No chest pain Left hip pain Medications Cardiovascular: Item Value Date Time Warfarin Sodium 1.25 mg 06/29/17 1600 (Coumadin Tab) SuWe@1600/PO Warfarin Sodium 2.5 mg 06/26/17 1600 (Coumadin Tab) MoTuThFrSa@1600/PO 06/26/17 1716 Amiodarone HCl 200 mg 06/25/17 0900 (Cordarone Tab) QAM/PO 06/26/17 0844 Warfarin Sodium 5 mg 06/30/17 1600 (Coumadin Tab) DAILY@16/PO 06/30/17 1634 Bumetanide 2 mg 06/29/17 0900 (Bumex Tab) BID17/PO 07/01/17 0847 Amiodarone HCl 200 mg 06/25/17 0900 (Cordarone Tab) QAM/PO 07/01/17 0847 Metoprolol 50 mg 06/25/17 0900 Succinate QAM/PO 07/01/17 0847 (Toprol Xl Tab) Pravastatin Sodium 40 mg 06/24/17 2100 (Pravachol Tab) HS/PO 06/30/17 2102 Objective Vital Signs Past 12 Hours Date Time Temp Pulse Resp B/P (MAP) Pulse Ox O2 Delivery O2 Flow Rate FiO2 07/01/17 07:01 36.9 85 16 103/56 (72) 95 Nasal Cannula 2.0 07/01/17 00:10 Nasal Cannula 2.0 06/30/17 23:00 37.5 84 18 108/54 (72) 94 Nasal Cannula 2.0 Last Recorded Weight-Kilograms: 96.300 Physical Exam Constitutional: General Apperance: heathly-appearing Level of Distress: NAD Lungs: Respiratory effort: no dyspnea, good air movement Auscultation: breath sounds normal, no wheezing Cardiovascular: Heart Auscultation: RRR, no rubs, no gallops, II/ NORM, II/ WSM Peripheral Pulses: Bruits: none appreciated Extremities: no edema Data Laboratory Results: Last 24 Hours Test 06/30/17 10:14 06/30/17 18:20 07/01/17 05:42 Prothrombin Time 12.3 SECONDS 12.5 SECONDS 13.0 SECONDS Prothromb Time International Ratio 1.2 1.2 1.2 White Blood Count 6.79 K/uL Red Blood Count 3.09 M/uL Hemoglobin 8.8 g/dL Hematocrit 28.2 % Mean Corpuscular Volume 91.3 fL Mean Corpuscular Hemoglobin 28.5 pg Mean Corpuscular Hemoglobin Concent 31.2 g/dl Platelet Count 131 K/uL Mean Platelet Volume 10.2 fL Neutrophils (%) (Auto) 62.1 % Lymphocytes (%) (Auto) 19.0 % Monocytes (%) (Auto) 13.4 % Eosinophils (%) (Auto) 2.7 % Basophils (%) (Auto) 0.3 % Neutrophils # (Auto) 4.22 K/uL Lymphocytes # (Auto) 1.29 K/uL Monocytes # (Auto) 0.91 K/uL Eosinophils # (Auto) 0.18 K/uL Basophils # (Auto) 0.02 K/uL RDW Standard Deviation 56.7 fL RDW Coefficient of Variation 17.1 % Immature Granulocyte % (Auto) 2.5 % Immature Granulocyte # (Auto) 0.17 K/uL Ovalocytes 1+ Sodium Level 139 mmol/L Potassium Level 3.6 mmol/L Chloride Level 98 mmol/L Carbon Dioxide Level 37 mmol/L Anion Gap 4.0 mmol/L Blood Urea Nitrogen 30 mg/dl Creatinine 1.18 mg/dl Est Creatinine Clear Calc Drug Dose 59.0 ml/min Estimated GFR () 68.6 Estimated GFR (Non- 59.2 BUN/Creatinine Ratio 25.7 Random Glucose 114 mg/dl Calcium Level 7.8 mg/dl Magnesium Level 2.0 mg/dl ICD interrogation: His ICD was interrogated today, it is functioning well and he has had no arrhythmias identified. Battery voltage is good. Assessment and Plan #1. Hip fracture: It appears to have been a mechanical fall, that is what the patient recollects and his ICD interrogation demonstrated no arrhythmia. I would therefore not alter his cardiovascular planned. He was scheduled to have an echocardiogram done 07/23/2017 in our office, that was already canceled as he had one done here recently. Thank you for allowing me to participate in his care.
--- NOTE | 2017-07-01 14:01 | NUR ---
ID: Pt able to be d/c'd today- to go to [facility] via litter; pt unable to void, es d/c'd this morning around 0630, to straight cath at this time.
--- NOTE | 2017-07-01 14:04 | NUR ---
Received notification that pt is for transfer to [facility] today. Spoke with Latisha Martínez. [facility] can accept Pt today. Per nursing, Pt will need litter van transport. Will attempt to arrange litter van transport to [facility]. Addendum: 07/01/17 at 1430 by Carlie PENN [facility] will provide litter van transport at 1500. Nursing and facility aware of transport time. Left message for Pt's advising of transport time. Addendum: 07/01/17 at 1433 by Carlie PENN Pt's is in the room. Advised of transport time.
--- NOTE | 2017-07-01 14:38 | Discharge Summary ---
Discharge Summary Date of Service Jul 01, 2017. Discharge Summary Admission Date: Jun 24, 2017 at 16:18 Discharge Date: Jul 01, 2017 Discharge Disposition: Rehab Principal Diagnosis: L hip fracture s/p cemented bipolar hemiarthroplasty Problems/Secondary Diagnoses: (1) Abdom Aortic Aneurysm Status: Chronic (2) Aortic dissection, thoracic Status: Chronic (3) 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 (4) Aortocoronary Bypass Status: Chronic (5) CAD (coronary artery disease) Status: Chronic (6) Chronic Kidney Disease, Unspecified Status: Chronic (7) Chronic Obstructive Pulmonary Disease W (Acute) Exacerbation Status: Chronic (8) 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 (9) HTN (hypertension) Status: Chronic (10) Hyperlipidemia, Unspecified Status: Chronic (11) Hypertrophy (Benign) Of Prostate W/O Urinary Obst & Oth Luts Status: Chronic (12) Hypothyroidism, Unspecified Status: Chronic (13) 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 Immunizations: Have You Had Influenza Vaccine: No History of Tetanus Vaccine?: Yes History of Pneumococcal: Yes Pneumococcal Date: Apr 08, 2002 History of Hepatitis B Vaccine: No Procedures: L hip - cemented bipolar hemiarthroplasty Hip/pelvis x-ray CXR Consultations: Cardiology Orthopedics Medication Reconciliation New Medications: Enoxaparin (Lovenox) 40 Mg/0.4 Ml Inj 40 MG SQ DAILY for 30 Days, #30 SYR Warfarin Sod (Coumadin) 5 Mg Tab 5 MG PO DAILY@16 for 30 Days, #30 TAB Continued Medications: Amiodarone HCl (Amiodarone HCl) 200 Mg Tab 200 MG PO QAM, TAB Ascorbic Acid (Vitamin C) 500 Mg Tab 1 TAB PO QAM Aspirin (Aspirin) 81 Mg Chw 81 MG PO QAM, TAB 3 Refills Bumetanide (Bumex) 2 Mg Tab 1 TAB PO BID for 30 Days, #60 TAB 5 Refills Docusate Sodium (Docusate Sodium) 100 Mg Cap 100 MG PO QPM Famotidine (Famotidine) 20 Mg Tab 20 MG PO QAM Lecithin (Lecithin) 1,200 Mg Cap 1200 MG QAM Levothyroxine Sodium (Levothyroxine Sodium) 25 Mcg Tab 25 MCG PO QAM, #30 Metoprolol Succinate (Toprol Xl) 100 Mg Tab 100 MG PO QAM, TAB Multivitamin (Multivitamin) Tab 1 TAB PO QAM Nitroglycerin (Nitrostat) 0.4 Mg Tab 0.4 MG UT PRN, 0 Refills Potassium Chloride (Potassium Chloride Er) 10 Meq Tab 10 MEQ BID Pravastatin Sodium (Pravastatin Sodium) 40 Mg Tab 40 MG HS Ramipril (Ramipril) 5 Mg Cap 5 MG PO QAM, CAP 3 Refills Tamsulosin HCl (Tamsulosin HCl) 0.4 Mg Cap 0.4 MG PO HS Discontinued Medications: Fish Oil ([place]-3) 1 Ea Cap 1 CAP PO QAM, CAP Warfarin Sod (Jantoven) 2.5 Mg Tab 2.5 MG PO 5XWK MON, , , FRI, SAT Warfarin Sod (Jantoven) 2.5 Mg Tab 1.25 MG PO 2XWK SUNDAYS AND WEDNESDAYS Discharge Exam General Appearance: no apparent distress Eyes: normal inspection, sclerae normal Neck: supple, no JVD Respiratory/Chest: lungs clear, + decreased breath sounds Cardiovascular: regular rate, rhythm, no murmur Abdomen: normal bowel sounds, non tender, soft Extremities: non-tender, no pedal edema Neurologic/Psychiatric: alert, oriented x 3 Skin: warm/dry Constitutional: No fever, No chills Respiratory: + shortness of breath Cardiovascular: No chest pain Abdomen: No pain, No nausea, No vomiting, No diarrhea, No constipation Male : No dysuria Hospital Course Mr. Garcia is a 77 y/oM with hx of CAD s/p CABG, aortic dissection s/p repair, aortic valve replacement x 3 (Mechanical to Cadaver to Current Bovine), s/p Pacer/ICD, AAA measuring 6.1 cm, Systolic CHF with EF 35-40%, CKD Stage III, Peripheral Vascular Disease, Atrial Fibrillation, L Renal Mass, Transverse Myelitis, and Hypothyroidism admitted for L hip pain s/p fall. Now post op (L hemiarthroplasty) day 6 without any L hip pain and improved fatigue/sob. L Hip Fracture S/P L Cemented Bipolar Hemiarthroplasty on 06/25 - Orthopedics - Weight bear as tolerated with walker. - Hip precautions. - Ice as needed. - Keep incision clean, dry and in tact. - Dressing changes as needed for drainage. - Follow up with Dr. Harkins 12-14 days post op, call [facility] at [phone] to make appt. - Tylenol 1 g IV Q8H PRN, patient wants to avoid opiates - INR remains subtherapeutic 1.2 again today on Coumadin, was reversed for surgery (from 1.9 using 3 units of FFP) - Coumadin increased to 5mg daily on 06/30/17 (Home dosage was 2.5mg) - Start on Lovenox 40mg SQ daily (for DVT prophylaxis not bridging Lovenox for Afib due to risk of postop hematoma) - stop lovenox 24hrs after INR between 2-3 - Recheck INR on 07/03/17 to ensure therapeutic Acute blood loss anemia after surgery - EBL was only 250cc and no significant bleeding in drain - Hb improved to 8.8 today s/p 1 unit pRBC on 06/29 - Check CBC in 1 week Acute hypoxia and desaturations - likely multifactorial given anemia, possibly atelectasis and some volume overload - sitting upright most of the day, taking deep breaths with incentive spirometer - still requiring oxygen 2L with improved breath sounds today - Aim saturations >= 90% Extensive Cardiac History - CAD S/P CABG, Aortic Dissection S/P Repair, AAA at 6.1 cm, AVR x 3 (Current Bovine), Atrial Fibrillation, S/P Pacer/ICD, Systolic CHF EF 35-40% - Continue Amiodarone 200 mg daily - Continue Toprol-XL 50 mg daily - Continue Bumex 2mg PO BID Hypothyroidism - Continue Synthroid 25 mcg daily Urinary retention - Hx of need for straight caths post surgery/cathetar placement - Pt had trouble urinating this PM - Scheduled straight Caths TID CKD Stage III: STABLE - Monitor kidney function. Avoid nephrotoxic agents - Cr stable at 1.18, baseline L Renal Mass: Concerning for RCC - STABLE - Patient opted for minimal intervention - was supposed to have cryotherapy done by urology however needed clearance due to his AAA; per review of outpatient records states he was seen by Dr. Dunaway who states no repair was necessary at this time - urology plans to perform procedure in August 2017 Transverse Myelitis: STABLE - Patient reports no worsening of issues prior to this fall - states his left leg is more "gimpy" compared to his right leg [facility]position: [facility] Total Time Spent: Less than 30 minutes This includes examination of the patient, discharge planning, medication reconciliation, and communication with other providers. Discharge Instructions Please refer to the electronic Patient Visit Report (Discharge Instructions) for additional information. Additional Copies To Byron Vizcaino M.D. Assessment/Plan Resident Physician Supervision Note: I was present with Dr. Fuller during the history and exam. I discussed the case with the resident and agree with the findings and plan as documented in the note. Any exceptions or clarifications are listed here: For full attending history and examination, see note from day of discharge. 77 y/o male h/o CAD s/p CABG w/ pacer/ICD, AF, sCHF, aortic dissection s/p repair, AVR x 3, PVD, L renal mass, transverse myelitits, hypothyroidism p/w L hip fracture s/p fall now s/p hemiarthroplasty. L hip fracture s/p hemiarthroplasty - dressing changes at wound site, will benefit from [facility] rehab Atrial fibrillation - prophylactic lovenox and continue warfarin therapy until therapeutic per ortho recommendations Anemia, likely postoperative and hemodilutional - stable Hypoxia - continue IS, wean O2 as tolerated Systolic CHF in the setting of CAD s/p CABG w/ pacer/ICD - continue amiodarone, metoprolol, bumex CKD III - stable, avoid nephrotoxic medications Hypothyroidism - continue synthroid DNR
[2017-07-01] MEDS: WARFARIN SOD 5 MG TAB PO SCH (15:02)
--- NOTE | 2017-07-01 15:06 | NUR ---
A: Report called to Kori at [facility]. Saline lock removed. Straight cath'd for 900 cc prior to d/c. JEWISH HISTORY PROFESSOR to go along for transport ride to [facility].
[2017-07-01 15:29] VITALS: BP 107/54; PULSE 90; TEMP 37.5; O2SAT 92
--- NOTE | 2017-07-01 16:28 | NUR ---
CWOCN: RECEIVED REQUEST FOR CONSULT, RE: LG BLISTER TO SACRUM AREA. PATIENT SEEN AT [phone]. FOUND PREVENTION DRESSING IN PLACE OVER SACRAL AREA. FOUND LEFT BUTTOCKS WITH 9X5CM TOTAL AREA OF SCATTERED DEEP TISSUE INJURIES. SURFACE IS SLIGHTLY OPEN. THERE IS LARGE AMOUNT OF SEROSANGUINEOUS DRAINAGE NOTED. WILL COVER WITH AQUACEL AG AND OPTIFOAM. FOUND TAPE LU ON UPPER POSTERIOR THIGH MOST DISTAL AREA 1X0.5CM WITH PINK WOUND BED. PROXIMAL AREA 4X1.5CM WITH PINK WOUND BED. THESE ARE COVERED WITH OPTIFOAM. THERE ARE FEW SMALL SCATTERED OPENINGS ON PROXIMAL LATERAL HIP. HIP DRESSING OVER STAPLE LINE SATURATED. SAME CHANGED BY JENNIFER STOCK RN.
[2017-07-17] MEDS ORDERED: NITR-5 PO (08:43)
[2017-07-21] MEDS ORDERED: CEPH500C2 PO (09:23)
[2017-09-17] MEDS ORDERED: CEPH500C2 PO (10:44)
[2017-09-26] MEDS ORDERED: PHYT100T PO (11:13)
== END 2017-07-01 15:41 | DRG 470 ==
LOC: C.EDB 12:19 → C.2E 16:18 → ENRESERV 17:00 → C.MSN 06-30 20:07
PROVIDERS: ADMIT Internal Medicine; ATTEND Family Medicine
PROC: 0SRS0J9 Replacement of Left Hip Joint, Femoral Surface with Synthetic Substitute, Cemented, Open Approach (ICD-10-PCS; principal; 2017-06-25 12:30)
DX: S72.002A Fracture of unspecified part of neck of left femur, initial encounter for closed fracture (principal); I50.20 Unspecified systolic (congestive) heart failure; G37.3 Acute transverse myelitis in demyelinating disease of central nervous system; D62 Acute posthemorrhagic anemia; W18.09XA Striking against other object with subsequent fall, initial encounter; R09.02 Hypoxemia; I95.9 Hypotension, unspecified; R33.9 Retention of urine, unspecified; I25.10 Atherosclerotic heart disease of native coronary artery without angina pectoris; I48.91 Unspecified atrial fibrillation; I73.9 Peripheral vascular disease, unspecified; N18.3 Chronic kidney disease, stage 3 (moderate); N28.89 Other specified disorders of kidney and ureter; I71.4 Abdominal aortic aneurysm, without rupture; E03.9 Hypothyroidism, unspecified; Z66 Do not resuscitate; Y92.019 Unspecified place in single-family (private) house as the place of occurrence of the external cause; Z95.0 Presence of cardiac pacemaker; Z95.1 Presence of aortocoronary bypass graft; Z95.3 Presence of xenogenic heart valve; Z95.810 Presence of automatic (implantable) cardiac defibrillator; Z98.890 Other specified postprocedural states; Z86.79 Personal history of other diseases of the circulatory system; Z87.891 Personal history of nicotine dependence; Z79.01 Long term (current) use of anticoagulants; Z79.82 Long term (current) use of aspirin; Z79.899 Other long term (current) drug therapy

== ENCOUNTER 2017-07-04 03:51 | Emergency (ER) | payer OTHER ==
[~2017-07-04] VITALS: Ht 175.3 cm; Wt 96.8 kg
[~2017-07-04 03:51] MED LIST changes: +CMD5 PO; +ENOX40IN SQ; -OMEG10007 PO; -WARF2.5T8 PO
[2017-07-04 03:53] VITALS: TEMP 37.3; Ht 175.3 cm; Wt 96.8 kg
--- NOTE | 2017-07-04 04:01 | EMERGENCY ROOM VISIT NOTE ---
History Report prepared by Nirali: Moi Mckeon Under the Supervision of: Dr. Ricardo Montano M.D. First contact with patient: 03:56 Chief Complaint: CATHETER REPLACEMENT Stated Complaint: URINARY RETENTION/CATHETER REPLACEMENT History of Present Illness The patient is a 77 year old male who presents to the Emergency Room with complaints of a resolved need for a catheter replacement that started yesterday. The patient had a catheter inserted after a hip replacement because he was having urinary retention post-operation. He notes throughout yesterday that he had minimal urinary output, and had a fair amount of urine, so his catheter was taken out, and there was trouble putting a new one in. The patient says that he is feeling much better once the catheter was put back in, and denies any pain. His oxygen saturation was noted to be a bit low, but the patient notes no history of lung issues, and he denies any shortness of breath. Source of History: patient Onset: Yesterday Position: other (catheter) Symptom Intensity: now feeling great with replacement put in Quality: other (need for replacement - was not draining well) Timing: resolved Associated Symptoms: + urinary symptoms, No SOB Note: Associated symptoms: Oxygen saturation a bit low here. Review of Systems See HPI for pertinent positives & negatives. A total of 6 systems reviewed and were otherwise negative. Past Medical & Surgical Medical Problems: (1) Abdom Aortic Aneurysm (2) Aortic dissection, thoracic (3) Beta-hemolytic group B streptococcal sepsis (4) CAD (coronary artery disease) (5) Chronic Kidney Disease, Unspecified (6) Chronic Obstructive Pulmonary Disease W (Acute) Exacerbation (7) Fever (8) Gram positive septicemia (9) H/O thrombosis (10) H/O: pneumonia (11) HTN (hypertension) (12) Hyperlipidemia, Unspecified (13) Hypertrophy (Benign) Of Prostate W/O Urinary Obst & Oth Luts (14) Hypothyroidism, Unspecified (15) Lower extremity weakness (16) Lumbar back pain (17) Presence of combination internal cardiac defibrillator (ICD) and pacemaker (18) Transverse myelitis Surgical Problems: (1) aortic valve replacement with cadaver valve (2) Aortocoronary Bypass (3) H/O aortic valve replacement with porcine valve (4) History of aortic valve replacement with metallic valve Family History Patient reports no known family medical history. Social History Smoking Status: Never Smoker Alcohol Use: none Drug Use: none Marital Status: Housing Status: lives with family Occupation Status: retired Current/Historical Medications Scheduled Amiodarone HCl (Amiodarone HCl), 200 MG PO QAM Ascorbic Acid (Vitamin C), 1 TAB PO QAM Aspirin (Aspirin), 81 MG PO QAM Bumetanide (Bumex), 1 TAB PO BID Docusate Sodium (Docusate Sodium), 100 MG PO QPM Enoxaparin (Lovenox), 40 MG SQ DAILY Famotidine (Famotidine), 20 MG PO QAM Lecithin (Lecithin), 1,200 MG QAM Levothyroxine Sodium (Levothyroxine Sodium), 25 MCG PO QAM Metoprolol Succinate (Toprol Xl), 100 MG PO QAM Multivitamin (Multivitamin), 1 TAB PO QAM Nitroglycerin (Nitrostat), 0.4 MG UT PRN Potassium Chloride (Potassium Chloride Er), 10 MEQ BID Pravastatin Sodium (Pravastatin Sodium), 40 MG HS Ramipril (Ramipril), 5 MG PO QAM Tamsulosin HCl (Tamsulosin HCl), 0.4 MG PO HS Warfarin Sod (Coumadin), 5 MG PO DAILY@16 Allergies Coded Allergies: Adhesives (Verified Allergy, Unknown, removed skin, 06/24/17) Physical Exam Vital Signs Date Time Temp Pulse Resp B/P (MAP) Pulse Ox O2 Delivery O2 Flow Rate FiO2 07/04/17 04:42 87 20 100/59 95 07/04/17 04:03 91 Room Air 07/04/17 03:53 37.3 78 20 98/52 89 Room Air Physical Exam GENERAL: Patient is well appearing and in no acute distress. HEENT: No acute trauma, normocephalic atraumatic, mucous membranes moist, no nasal congestion, no scleral icterus. NECK: No stridor, no adenopathy, no meningismus, trachea is midline. LUNGS: No dyspnea. Clear to auscultation and equal bilaterally. No wheeze, no rhonchi. HEART: Regular rate and rhythm. No murmurs, rubs, gallops appreciated. ABDOMEN: Soft, nontender, bowel sounds positive, no masses appreciated, no peritonitis. : Catheter in place, draining well. EXTREMITIES: Left hip surgical site, site dressed, with no surrounding erythema nor drainage. Normal motion all extremities, no cyanosis, no edema. NEUROLOGIC: Alert and oriented, no acute motor or sensory deficits, no focal weakness, cranial nerves grossly intact. SKIN: No rash, no jaundice, no diaphoresis. Medical Decision & Procedures ED Course 0357: The patient was evaluated in room B9. A complete history and physical exam was performed. Discussed results and discharge instructions: he verbalized understanding and agreement. The patient is ready for discharge. Medical Decision 77 yr old male arrives from [facility] due to inability of staff there to replace his suggs. Done here without difficulty and patient noting vastly improved without further suprapubic discomfort. Mildly low O2 sats though lungs clear, no shob, and I suspect this is more due to atelectasis and just waking up than infectious nor fluid overload at this time. He is clearly here for suggs issue and denies any respiratory nor lung complains. Stable and wanting to get back to rehab as soon as possible. Medication Reconcilliation Current Medication List: was personally reviewed by me Blood Pressure Screening Patient's blood pressure: Normal blood pressure Impression Primary Impression: Complication of catheter Additional Impression: Urinary retention Scribe Attestation The scribe's documentation has been prepared under my direction and personally reviewed by me in its entirety. I confirm that the note above accurately reflects all work, treatment, procedures, and medical decision making performed by me. Departure Information Dispostion Home / Self-Care Referrals Byron Vizcaino M.D. (PCP) Patient Instructions [facility] Additional Instructions Please return or be evaluated by Physician if fevers, cough, difficulty breathing, shortness of breath as Oxygen levels here were mildly low. Continue catheter care. Problem Qualifiers
[2017-07-04 04:42] VITALS: BP 100/59; PULSE 87; O2SAT 95
== END 2017-07-04 04:44 ==
LOC: EDBD 03:51 → C.EDB 03:52
DX: Z46.6 Encounter for fitting and adjustment of urinary device (principal); R33.9 Retention of urine, unspecified; Z96.649 Presence of unspecified artificial hip joint; I71.4 Abdominal aortic aneurysm, without rupture; I25.10 Atherosclerotic heart disease of native coronary artery without angina pectoris; N18.9 Chronic kidney disease, unspecified; J44.9 Chronic obstructive pulmonary disease, unspecified; I12.9 Hypertensive chronic kidney disease with stage 1 through stage 4 chronic kidney disease, or unspecified chronic kidney disease; E78.5 Hyperlipidemia, unspecified; N40.0 Benign prostatic hyperplasia without lower urinary tract symptoms; E03.9 Hypothyroidism, unspecified; M54.5 Low back pain; Z86.718 Personal history of other venous thrombosis and embolism; Z95.5 Presence of coronary angioplasty implant and graft; Z95.2 Presence of prosthetic heart valve; Z95.810 Presence of automatic (implantable) cardiac defibrillator; Z79.01 Long term (current) use of anticoagulants; Z79.82 Long term (current) use of aspirin

== ENCOUNTER 2017-07-28 17:58 | Inpatient (IN) | payer OTHER ==
[~2017-07-28] VITALS: Ht 182.9 cm; Wt 90.2 kg
[~2017-07-28 17:58] MED LIST changes: -BUME2TAB3 PO; +CEPH500C2 PO; -ENOX40IN SQ; +ETOMIDATE 2 MG/ML 20 ML VIAL IV ONE; +FENTANYL CITRATE INJ 50 MCG/1 ML 2 ML VIAL IV ONE; -LECI1200; +MIDAZOLAM HCL 5 MG/ML 2ML VIAL IV ONE; +NITR-5 PO; +SUCCINYLCHOLINE CHLORIDE 20 MG/ML 10 ML VIAL IV ONE; +VECURONIUM BROMIDE 10 MG VIAL IV ONE
[2017-07-28] MEDS ORDERED: SODIUM CHLORIDE 0.9% 1000ML 1,000 ML IV STA (19:54)
[2017-07-28 20:29] LABS: ISTAT CREATININE 1.1 mg/dl (0.6-1.3); ISTAT IONIZED CALCIUM 0.91 mmol/l (1.12-1.32); ISTAT POTASSIUM 5.8 mEq/L (3.3-5.0)
[2017-07-28 20:43] LABS: BASO % 0.4 %; BASO ABS # 0.03 K/uL (0-0.2); EOS % 2.6 %; HEMATOCRIT 32.1 % (42-52); HEMOGLOBIN 9.9 g/dL (14.0-18.0); IG# 0.07 K/uL (0.00-0.02); LYMPH % 17.6 %; LYMPH ABS # 1.34 K/uL (1.2-3.4); MEAN CELL VOLUME 89.9 fL (80-100); MEAN CORPUSCULAR HEMOGLOBIN 27.7 pg (25-34); MEAN CORPUSCULAR HGB CONC 30.8 g/dl (32-36); MEAN PLATELET VOLUME 10.8 fL (7.4-10.4); MONO ABS # 0.76 K/uL (0.11-0.59); NEUT % 68.5 %; PLATELET COUNT 199 K/uL (130-400); RED CELL DISTRIBUTION WIDTH CV 16.5 % (11.5-14.5); RED CELL DISTRIBUTION WIDTH SD 53.7 fL (36.4-46.3)
[2017-07-28 20:51] LABS: INR 3.2 (0.9-1.1)
[2017-07-28 20:59] LABS: ALBUMIN 2.7 gm/dl (3.4-5.0); ALT/SGPT 26 U/L (12-78); BLOOD UREA NITROGEN 16 mg/dl (7-18); CALCIUM 8.1 mg/dl (8.5-10.1); CARBON DIOXIDE 31 mmol/L (21-32); CREATININE 1.09 mg/dl (0.60-1.40); GLUCOSE 100 mg/dl (70-99); POTASSIUM 4.4 mmol/L (3.5-5.1); SODIUM 134 mmol/L (136-145)
[2017-07-28 21:04] LABS: ALKALINE PHOSPHATASE 78 U/L (45-117); AST/SGOT 20 U/L (15-37); CKMB 1.8 ng/ml (0.5-3.6)
--- NOTE | 2017-07-28 21:14 | DIAGNOSTIC IMAGING REPORT ---
CHEST ONE VIEW PORTABLE CLINICAL HISTORY: fever COUGH COMPARISON STUDY: 06/26/2017 FINDINGS: The heart is markedly enlarged. There are postsurgical changes of a midline sternotomy. There is a left subclavian pacer/defibrillator present. There are increased interstitial markings within the left lung. There is a suspected small left pleural effusion. Diagnostic considerations include asymmetric pulmonary edema versus interstitial left lung infectious/inflammatory process.[ IMPRESSION: 1. Cardiomegaly and suspected left pleural effusion 2. Increased left lung interstitial markings. Diagnostic considerations include asymmetric pulmonary edema versus an interstitial left lung infectious/inflammatory process Electronically signed by: Hernando Du M.D. 07/28/2017 9:13 PM Dictated Date/Time: 07/28/2017 9:12 PM
[2017-07-28] MEDS ORDERED: LEVAQUIN 750MG / 150ML D5W IV STA (21:20)
[2017-07-28] MEDS ORDERED: CEFEPIME IV 1,000 MG in DEXTROSE 5% 100ML 100 ML IV STA (21:20)
--- NOTE | 2017-07-28 21:46 | History and Physical ---
History & Physical Date & Time of Service: Jul 28, 2017 at 21:37 Chief Complaint: Lost Function In Legs, Bad Chest Cough Primary Care Physician: Edilberto Valiente M.D. History of Present Illness Source: patient 77 y/o M Hx chronic systolic, CAD, CHF, AF, AVR, HTN, HPL, hypothyroidism, CKD II-III, transverse myelitis. Recent hip L fracture (repaired bipolar hemiarthroplasty 06/26/17) followed by admission to [facility] for rehab. D/ Cd from [facility] 2 days ago. Reports increasing weakness since that time and is unable to ambulate presently. Denies CP, SOB, N/V/D, dysuria. Initial labs are notable for hyperkalemia and a (+) UA, initial CXR is consistent with vascular congestion. On arrival to the ER it was noted that the pt's 02 sat was as low as 83%. He had not - per family - complained of SOB and has a baseline sat of approximately 88%. It is noted that until recently he was on daily Bumex which was held due to dehydration at his rehab facility. Past Medical/Surgical History 1) CAD S/P CABG 2) Aortic Dissection S/P Repair 3) Aortic Valve Replacement x 3 (Mechanical then Cadaver and currently Bovine) 4) S/P Pacer/ICD 5) AAA - measuring 6.1 cm 6) Systolic CHF with EF 35-40% 7) CKD Stage III 8) Peripheral Vascular Disease 9) Atrial Fibrillation 10) L Renal Mass - concerning for RCC 11) Transverse Myelitis - had required high-dose steroid treatment in 2007 for thoracic transverse myelitis and LE weakness. 12) Hypothyroidism Surgical: 1) Repair of aortic thoracic dissection and placement of mechanical aortic valve 2000 2) Replacement of mechanical valve 2001 3) AICD placement and revisions 2001,2007,2008 4) Aortic arch repair with 3rd valve replacement - bioprosthesis 2008 Family History Patient reports no known family medical history. Mother 80s, Father 90s - causes not known Social History Smoking Status: Never Smoker Drug Use: none Marital Status: Housing status: lives with family Occupational Status: retired Immunizations History of Influenza Vaccine: No History of Tetanus Vaccine?: Yes History of Pneumococcal: Yes Pneumococcal Date: Apr 08, 2002 History of Hepatitis B Vaccine: No Multi-Drug Resistant Organisms History of MDRO: No Allergies Coded Allergies: Adhesives (Verified Allergy, Unknown, removed skin, 06/24/17) Home Medications Scheduled Amiodarone HCl (Amiodarone HCl), 200 MG PO QAM Ascorbic Acid (Vitamin C), 1 TAB PO QAM Aspirin (Aspirin), 81 MG PO QAM Cephalexin Monohydrate (Keflex), 500 MG PO TID Docusate Sodium (Docusate Sodium), 100 MG PO QPM Famotidine (Famotidine), 20 MG PO QAM Levothyroxine Sodium (Levothyroxine Sodium), 25 MCG PO QAM Metoprolol Succinate (Toprol Xl), 100 MG PO QAM Multivitamin (Multivitamin), 1 TAB PO QAM Nitrofurantoin Monohyd Macrocr (Macrobid), 100 MG PO BID Nitroglycerin (Nitrostat), 0.4 MG UT PRN Potassium Chloride (Potassium Chloride Er), 10 MEQ BID Pravastatin Sodium (Pravastatin Sodium), 40 MG HS Ramipril (Ramipril), 5 MG PO QAM Tamsulosin HCl (Tamsulosin HCl), 0.4 MG PO HS Warfarin Sod (Coumadin), 5 MG PO DAILY@16 Review of Systems Constitutional: + weakness, No fever, No chills, No sweats Eyes: No worsening of vision ENT: No hearing loss, No unusual epistaxis, No nasal symptoms Respiratory: + problem reported (Hypoxia confirmed - no c/o SOB), No cough, No sputum, No wheezing Cardiovascular: No chest pain, No orthopnea, No PND Abdomen: No pain, No vomiting Musculoskeletal: No joint pain Genitourinary - Male: No hematuria, No dysuria, No urinary frequency Neurologic: + memory loss (chronic), + weakness, + problem reported (Cannot support weight on LE - L is weaker than R) Psychiatric: No depression symptoms Endocrine: + fatigue Hematologic / Lymphatic: No abnormal bleeding/bruising Integumentary: No rash Allergic / Immunologic: No environmental allergies Physical Exam Vital Signs Date Time Temp Pulse Resp B/P (MAP) Pulse Ox O2 Delivery O2 Flow Rate FiO2 07/28/17 21:03 77 20 120/64 94 Nasal Cannula 2.0 07/28/17 20:17 74 07/28/17 20:04 98 Nasal Cannula 2.0 07/28/17 20:01 36.8 71 20 108/57 98 Nasal Cannula 2.0 07/28/17 19:55 88 Room Air 07/28/17 18:36 36.8 73 22 95/53 82 Room Air General Appearance: WD/WN, + pertinent finding (Lethargic elderly male in no distress) Head: normocephalic Eyes: normal inspection, EOMI ENT: normal ENT inspection, pharynx normal Neck: supple, + JVD Respiratory/Chest: chest non-tender, + pertinent finding (Generally poor effort - mild crackles at bases) Cardiovascular: regular rate, rhythm, no edema, + systolic murmur Abdomen/GI: normal bowel sounds, non tender, soft Back: normal inspection, no CVA tenderness, no muscle spasm Extremities/Musculoskelatal: no calf tenderness, normal capillary refill, no pedal edema 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, + pertinent finding (Pt maintains sensation in all extremities - he is able to lift his RLE off bed and can briefly lift L ) Skin: normal color Diagnostics Laboratory Results Results Past 24 Hours Test 07/28/17 20:12 07/28/17 20:16 07/28/17 20:30 07/28/17 20:52 Range/Units Bedside Lactic Acid Venous 1.03 0.90-1.70 mmol/L Bedside Hemoglobin 11.6 14.0-18.0 g/dl Bedside Hematocrit 34 42-52 % Bedside Sodium 132 135-144 mEq/L Bedside Potassium 5.8 3.3-5.0 mEq/L Bedside Chloride 98 101-112 mEq/L Bedside Total CO2 29 24-31 mEq/l Anion Gap 12.0 6.0 3-11 mmol/L Bedside Blood Urea Nitrogen 23 7-18 mg/dl Bedside Creatinine 1.1 0.6-1.3 mg/dl Bedside Glucose (other) 106 70-99 mg/dl Bedside Ionized Calcium (Enrique) 0.91 1.12-1.32 mmol/l White Blood Count 7.60 4.8-10.8 K/uL Red Blood Count 3.57 4.7-6.1 M/uL Hemoglobin 9.9 14.0-18.0 g/dL Hematocrit 32.1 42-52 % Mean Corpuscular Volume 89.9 80-100 fL Mean Corpuscular Hemoglobin 27.7 25-34 pg Mean Corpuscular Hemoglobin Concent 30.8 32-36 g/dl Platelet Count 199 130-400 K/uL Mean Platelet Volume 10.8 7.4-10.4 fL Neutrophils (%) (Auto) 68.5 % Lymphocytes (%) (Auto) 17.6 % Monocytes (%) (Auto) 10.0 % Eosinophils (%) (Auto) 2.6 % Basophils (%) (Auto) 0.4 % Neutrophils # (Auto) 5.20 1.4-6.5 K/uL Lymphocytes # (Auto) 1.34 1.2-3.4 K/uL Monocytes # (Auto) 0.76 0.11-0.59 K/uL Eosinophils # (Auto) 0.20 0-0.5 K/uL Basophils # (Auto) 0.03 0-0.2 K/uL RDW Standard Deviation 53.7 36.4-46.3 fL RDW Coefficient of Variation 16.5 11.5-14.5 % Immature Granulocyte % (Auto) 0.9 % Immature Granulocyte # (Auto) 0.07 0.00-0.02 K/uL Prothrombin Time 32.5 9.0-12.0 SECONDS Prothromb Time International Ratio 3.2 0.9-1.1 Sodium Level 134 136-145 mmol/L Potassium Level 4.4 3.5-5.1 mmol/L Chloride Level 98 98-107 mmol/L Carbon Dioxide Level 31 21-32 mmol/L Blood Urea Nitrogen 16 7-18 mg/dl Creatinine 1.09 0.60-1.40 mg/dl Estimated GFR () 75.5 Estimated GFR (Non- 65.1 BUN/Creatinine Ratio 14.3 10-20 Random Glucose 100 70-99 mg/dl Calcium Level 8.1 8.5-10.1 mg/dl Magnesium Level 2.2 1.8-2.4 mg/dl Total Bilirubin 0.5 0.2-1 mg/dl Direct Bilirubin 0.1 0-0.2 mg/dl Aspartate Amino Transf (AST/SGOT) 20 15-37 U/L Alanine Aminotransferase (ALT/SGPT) 26 12-78 U/L Alkaline Phosphatase 78 45-117 U/L Total Creatine Kinase 53 39-308 U/L Creatine Kinase MB 1.8 0.5-3.6 ng/ml Creatine Kinase MB Ratio 3.4 0-3.0 Troponin I < 0.015 0-0.045 ng/ml Total Protein 7.0 6.4-8.2 gm/dl Albumin 2.7 3.4-5.0 gm/dl Urine Color DK YELLOW Urine Appearance CLOUDY CLEAR Urine pH 5.0 4.5-7.5 Urine Specific Maryneal 1.027 1.000-1.030 Urine Protein 1+ NEG Urine Glucose (UA) NEG NEG Urine Ketones TRACE NEG Urine Occult Blood 3+ NEG Urine Nitrite NEG NEG Urine Bilirubin NEG NEG Urine Urobilinogen NEG NEG Urine Leukocyte Esterase MODERATE NEG Urine WBC (Auto) >30 0-5 /hpf Urine RBC (Auto) >30 0-4 /hpf Urine Hyaline Casts (Auto) 1-5 0-5 /lpf Urine Epithelial Cells (Auto) >30 0-5 /lpf Urine Bacteria (Auto) 1+ NEG Urine Renal Epithelial Cells 0-5 /lpf Test 07/28/17 21:27 Range/Units Microbiology Results 07/28/17 Blood Culture, Received Pending 07/28/17 Blood Culture, Received Pending 07/28/17 Urine Culture, Received Pending Diagnostic Radiology CXR: 1. Cardiomegaly and suspected left pleural effusion. 2. Increased left lung interstitial markings. Diagnostic considerations include asymmetric pulmonary edema versus an interstitial left lung infectious/ inflammatory process. EKG LBBB - no significant change from previous Impression Assessment and Plan 77 y/o M Hx chronic systolic, CAD, CHF, AF, AVR, HTN, HPL, hypothyroidism, CKD II-III, transverse myelitis. Recent hip L fracture (repaired bipolar hemiarthroplasty 06/26/17) followed by admission to [facility] for rehab. D/ Cd from [facility] 2 days ago. Reports increasing weakness since that time and is unable to ambulate presently. Denies CP, SOB, N/V/D, dysuria. Initial labs are notable for hyperkalemia and a (+) UA, initial CXR is consistent with vascular congestion. On arrival to the ER it was noted that the pt's 02 sat was as low as 83%. He had not - per family - complained of SOB and has a baseline sat of approximately 88%. It is noted that until recently he was on daily Bumex which was held due to dehydration at his rehab facility. 1) Weakness - likely due to deconditioning - he does not examine convincingly as transverse myelitis at present although this may figure in. His L side is weaker which is consistent with his recent surgery. We will request a neurology consult and have elected not to start high-dose steroids immediately. We will request PT/OT. 2) Hypoxia/CHF - pt does not C/O SOB - exam and imaging consistent with volume overload - recent DC of Bumex confirmed. He will receive 40mg IV Lasix, we will monitor overnight and assess for restarting scheduled Bumex AM. Alternatively, he can be placed on a PRN dose. If diuresis has no effect in improving his saturation, a CT chest should be considered. 3) Hyperkalemia - Repeat K pending - received Lasix - it appears that he continued to take PO K despite DC of Bumex - no clear EKG related EKG changes - pt is assigned to telemetry. 4) AF - INR is therapeutic on Coumadin - rate is controlled with Metoprolol, Amio. 5) CAD - no evidence of ACS - cont ASA, Statin, B xavier. 6) UTI - mild - was receiving treatment with PO Keflex - will change to Ceftriaxone - He received Cefepime and Levaquin in the ER - we have narrowed his coverage as he is not septic presently. Full code - Coumadin prophylaxis Total time for this admit including review of labs, meds, records, imaging - discussion with pt and ER attending - 43 min Level of Care Telemetry Resuscitation Status FULL RESUSCITATION VTE Prophylaxis Given or contraindicated: Warfarin (Coumadin)
[2017-07-28] MEDS ORDERED: ONDANSETRON INJ 2 MG/ML 2 ML VIAL IV PRN (22:00)
[2017-07-28] MEDS ORDERED: ALUMINUM/MAGNESIUM/SIMETH (MAALOX MAX) 30 ML UDC PO PRN (22:00)
[2017-07-28] MEDS ORDERED: MAGNESIUM HYDROXIDE SUSP 30 ML UDC PO PRN (22:00)
--- NOTE | 2017-07-28 22:37 | EMERGENCY ROOM VISIT NOTE ---
History Report prepared by Nirali: Lisa Choudhury Under the Supervision of: Dr. Jerrod Pearce D.O. First contact with patient: 19:36 Chief Complaint: BILATERAL LEG WEAKNESS Stated Complaint: LOST FUNCTION IN LEGS, BAD CHEST COUGH History of Present Illness The patient is a 77 year old male who presents to the Emergency Room with complaints of persistent generalized weakness starting 2 days ago. The patient had fell and broke his left hip recently. He had surgery and was placed in [facility]. He was discharged from [facility] 2 days ago. He has felt weak and has had difficulty getting around. He has had a dry cough since he was in [facility]. He denies any abdominal pain, chest pain, SOB, or rhinorrhea. He denies any new weakness in his arms or legs. He has a history of transverse myelitis and has had difficulty with weakness in his legs in the past. He has a pacemaker defibrillator. He is normally not on oxygen. He is taking his Coumadin and has not missed any doses. His INR was 2.5 2 days ago. Source of History: patient, family Onset: 2 days ago Position: other (global) Quality: other (weakness) Timing: other (persistent) Associated Symptoms: + cough, No chest pain, No SOB, No abdominal pain Review of Systems See HPI for pertinent positives & negatives. A total of 10 systems reviewed and were otherwise negative. Past Medical & Surgical Medical Problems: (1) Abdom Aortic Aneurysm (2) Aortic dissection, thoracic (3) Beta-hemolytic group B streptococcal sepsis (4) CAD (coronary artery disease) (5) Chronic Kidney Disease, Unspecified (6) Chronic Obstructive Pulmonary Disease W (Acute) Exacerbation (7) Fever (8) Gram positive septicemia (9) H/O thrombosis (10) H/O: pneumonia (11) HTN (hypertension) (12) Hyperkalemia (13) Hyperlipidemia, Unspecified (14) Hypertrophy (Benign) Of Prostate W/O Urinary Obst & Oth Luts (15) Hypothyroidism, Unspecified (16) Lower extremity weakness (17) Lumbar back pain (18) Presence of combination internal cardiac defibrillator (ICD) and pacemaker (19) Transverse myelitis Surgical Problems: (1) aortic valve replacement with cadaver valve (2) Aortocoronary Bypass (3) H/O aortic valve replacement with porcine valve (4) History of aortic valve replacement with metallic valve Family History Patient reports no known family medical history. Social History Smoking Status: Former Smoker Alcohol Use: none Drug Use: none Marital Status: Housing Status: lives with family Occupation Status: retired Current/Historical Medications Scheduled Amiodarone HCl (Amiodarone HCl), 200 MG PO QAM Ascorbic Acid (Vitamin C), 1 TAB PO QAM Aspirin (Aspirin), 81 MG PO QAM Cephalexin Monohydrate (Keflex), 500 MG PO TID Docusate Sodium (Docusate Sodium), 100 MG PO QPM Famotidine (Famotidine), 20 MG PO QAM Levothyroxine Sodium (Levothyroxine Sodium), 25 MCG PO QAM Metoprolol Succinate (Toprol Xl), 100 MG PO QAM Multivitamin (Multivitamin), 1 TAB PO QAM Nitrofurantoin Monohyd Macrocr (Macrobid), 100 MG PO BID Nitroglycerin (Nitrostat), 0.4 MG UT PRN Potassium Chloride (Potassium Chloride Er), 10 MEQ BID Pravastatin Sodium (Pravastatin Sodium), 40 MG HS Ramipril (Ramipril), 5 MG PO QAM Tamsulosin HCl (Tamsulosin HCl), 0.4 MG PO HS Warfarin Sod (Coumadin), 5 MG PO DAILY@16 Allergies Coded Allergies: Adhesives (Verified Allergy, Unknown, removed skin, 06/24/17) Physical Exam Vital Signs Date Time Temp Pulse Resp B/P (MAP) Pulse Ox O2 Delivery O2 Flow Rate FiO2 07/28/17 22:13 74 22 113/61 98 Nasal Cannula 2.0 07/28/17 21:03 77 20 120/64 94 Nasal Cannula 2.0 07/28/17 20:17 74 07/28/17 20:04 98 Nasal Cannula 2.0 07/28/17 20:01 36.8 71 20 108/57 98 Nasal Cannula 2.0 07/28/17 19:55 88 Room Air 07/28/17 18:36 36.8 73 22 95/53 82 Room Air Physical Exam GENERAL: Chronically ill appearing, sitting up in bed, disheveled, in mild distress EYE EXAM: normal conjunctiva. OROPHARYNX: no exudate, no erythema, lips, buccal mucosa, and tongue normal and mucous membranes are moist NECK: supple, no nuchal rigidity, no adenopathy, non-tender LUNGS: Diminished at the bilateral bases. Normal chest wall mechanics HEART: no murmurs, S1 normal and S2 normal ABDOMEN: abdomen soft, non-tender, normo-active bowel sounds, no masses, no rebound or guarding. BACK: Back is symmetrical on inspection and there is no deformity, no midline tenderness, no CVA tenderness. : Sandoval in place. SKIN: no rashes and no bruising. Ulcer over the left gluteus tracking down to the skin and subcutaneous tissue, no muscle involvement. UPPER EXTREMITIES: upper extremities are grossly normal. LOWER EXTREMITIES: No pitting edema. NEURO EXAM: Normal sensorium, cranial nerves II-XII grossly intact, normal speech, no gross weakness of arms, no gross weakness of legs. Medical Decision & Procedures ER Provider Diagnostic Interpretation: Xray results as stated below per my and the radiologist's interpretation: CHEST ONE VIEW PORTABLE CLINICAL HISTORY: fever COUGH COMPARISON STUDY: 06/26/2017 FINDINGS: The heart is markedly enlarged. There are postsurgical changes of a midline sternotomy. There is a left subclavian pacer/defibrillator present. There are increased interstitial markings within the left lung. There is a suspected small left pleural effusion. Diagnostic considerations include asymmetric pulmonary edema versus interstitial left lung infectious/inflammatory process.[ IMPRESSION: 1. Cardiomegaly and suspected left pleural effusion 2. Increased left lung interstitial markings. Diagnostic considerations include asymmetric pulmonary edema versus an interstitial left lung infectious/inflammatory process Electronically signed by: Hernando Du M.D. 07/28/2017 9:13 PM Dictated Date/Time: 07/28/2017 9:12 PM Laboratory Results 07/28/17 20:30 Red Blood Count 3.57, Mean Corpuscular Volume 89.9, Mean Corpuscular Hemoglobin 27.7, Mean Corpuscular Hemoglobin Concent 30.8, Mean Platelet Volume 10.8, Neutrophils (%) (Auto) 68.5, Lymphocytes (%) (Auto) 17.6, Monocytes (%) (Auto) 10.0, Eosinophils (%) (Auto) 2.6, Basophils (%) (Auto) 0.4, Neutrophils # (Auto ) 5.20, Lymphocytes # (Auto) 1.34, Monocytes # (Auto) 0.76, Eosinophils # (Auto ) 0.20, Basophils # (Auto) 0.03 Test 07/28/17 20:12 07/28/17 20:16 07/28/17 20:30 07/28/17 20:52 Bedside Lactic Acid Venous 1.03 mmol/L (0.90-1.70) Bedside Hemoglobin 11.6 g/dl (14.0-18.0) Bedside Hematocrit 34 % (42-52) Bedside Sodium 132 mEq/L (135-144) Bedside Potassium 5.8 mEq/L (3.3-5.0) Bedside Chloride 98 mEq/L (101-112) Bedside Total CO2 29 mEq/l (24-31) Bedside Blood Urea Nitrogen 23 mg/dl (7-18) Bedside Creatinine 1.1 mg/dl (0.6-1.3) Bedside Glucose (other) 106 mg/dl (70-99) Bedside Ionized Calcium (Enrique) 0.91 mmol/l (1.12-1.32) White Blood Count 7.60 K/uL (4.8-10.8) Red Blood Count 3.57 M/uL (4.7-6.1) Hemoglobin 9.9 g/dL (14.0-18.0) Hematocrit 32.1 % (42-52) Mean Corpuscular Volume 89.9 fL (80-100) Mean Corpuscular Hemoglobin 27.7 pg (25-34) Mean Corpuscular Hemoglobin Concent 30.8 g/dl (32-36) Platelet Count 199 K/uL (130-400) Mean Platelet Volume 10.8 fL (7.4-10.4) Neutrophils (%) (Auto) 68.5 % Lymphocytes (%) (Auto) 17.6 % Monocytes (%) (Auto) 10.0 % Eosinophils (%) (Auto) 2.6 % Basophils (%) (Auto) 0.4 % Neutrophils # (Auto) 5.20 K/uL (1.4-6.5) Lymphocytes # (Auto) 1.34 K/uL (1.2-3.4) Monocytes # (Auto) 0.76 K/uL (0.11-0.59) Eosinophils # (Auto) 0.20 K/uL (0-0.5) Basophils # (Auto) 0.03 K/uL (0-0.2) RDW Standard Deviation 53.7 fL (36.4-46.3) RDW Coefficient of Variation 16.5 % (11.5-14.5) Immature Granulocyte % (Auto) 0.9 % Immature Granulocyte # (Auto) 0.07 K/uL (0.00-0.02) Prothrombin Time 32.5 SECONDS (9.0-12.0) Prothromb Time International Ratio 3.2 (0.9-1.1) Magnesium Level 2.2 mg/dl (1.8-2.4) Total Bilirubin 0.5 mg/dl (0.2-1) Direct Bilirubin 0.1 mg/dl (0-0.2) Aspartate Amino Transf (AST/SGOT) 20 U/L (15-37) Alanine Aminotransferase (ALT/SGPT) 26 U/L (12-78) Alkaline Phosphatase 78 U/L (45-117) Total Creatine Kinase 53 U/L (39-308) Creatine Kinase MB 1.8 ng/ml (0.5-3.6) Creatine Kinase MB Ratio 3.4 (0-3.0) Troponin I < 0.015 ng/ml (0-0.045) Total Protein 7.0 gm/dl (6.4-8.2) Albumin 2.7 gm/dl (3.4-5.0) Urine Color DK YELLOW Urine Appearance CLOUDY (CLEAR) Urine pH 5.0 (4.5-7.5) Urine Specific [place] 1.027 (1.000-1.030) Urine Protein 1+ (NEG) Urine Glucose (UA) NEG (NEG) Urine Ketones TRACE (NEG) Urine Occult Blood 3+ (NEG) Urine Nitrite NEG (NEG) Urine Bilirubin NEG (NEG) Urine Urobilinogen NEG (NEG) Urine Leukocyte Esterase MODERATE (NEG) Urine WBC (Auto) >30 /hpf (0-5) Urine RBC (Auto) >30 /hpf (0-4) Urine Hyaline Casts (Auto) 1-5 /lpf (0-5) Urine Epithelial Cells (Auto) >30 /lpf (0-5) Urine Bacteria (Auto) 1+ (NEG) Urine Renal Epithelial Cells /lpf (0-5) Test 07/28/17 22:12 Venous Blood pH 7.28 (7.36-7.41) Venous Blood Partial Pressure CO2 70 mmHg (38.0-50.0) Venous Blood Partial Pressure O2 30 mmHg Venous Blood HCO3 32 mmol/L Venous Blood Oxygen Saturation < 60.0 % Venous Blood Base Excess 4.0 mEq/L Laboratory results per my review. Medications Administered Medications (Trade) Dose Ordered Sig/Deion Route Start Time Stop Time Status Last Admin Dose Admin Sodium Chloride 1,000 ml @ 999 mls/hr Q1H1M STAT IV 07/28/17 19:54 07/28/17 20:54 DC 07/28/17 19:54 999 MLS/HR Cefepime HCl 1000 mg/Dextrose 111 ml @ 200 mls/hr NOW STAT IV 07/28/17 21:20 07/28/17 21:53 DC 07/28/17 21:52 200 MLS/HR Levofloxacin (Levaquin / D5W) 750 mg NOW STAT IV 07/28/17 21:20 07/28/17 21:22 DC 07/28/17 22:13 750 MG ECG Indication: weakness Rate (beats per minute): 75 Rhythm: sinus rhythm Findings: LBBB, T-wave inversion (Lateral, High Lateral) Comparison ECG Date: 26-Jun-2017 Change: no significant change Change: Patient's electrocardiogram interpreted by me. ED Course ED COURSE: Vital signs were reviewed and showed hypoxia. The patients medical record was reviewed The above diagnostic studies were performed and reviewed. ED treatments and interventions as stated above. 1944: The patient was evaluated in room B6. A complete history and physical examination was performed. 1953: NSS 1000 ml @ 999 mls/hr IV. 2119: Levofloxacin 750 mg IV, Cefepime HCl 1000 mg/Dextrose 111 ml @ 200 mls/hr IV. 2122: Upon reevaluation, the patient is stable. I discussed my findings with the patient and family and they understand and agree with the treatment plan. Based on the patients age, coexisting illnesses, exam and lab findings the decision to treat as an inpatient was made. The patient remained stable while under my care. The patient will be evaluated for further management. 2128: I reviewed the patient's case with Dr. Thomas, [facility] hospital[place]. He will evaluate the patient for further management. 2205: Dr. Thomas does not want the CTA. Medical Decision Differential Diagnosis includes but is not limited to dehydration, stroke, anemia, hypoglycemia, hyponatremia, hypernatremia, urinary tract infection, pneumonia, bronchitis, sepsis, gastroenteritis, additional abdominal pathology, metabolic abnormalities and infections. Patient is a 77-year-old male who presents to ER for diffuse weakness associated with some shortness of breath. Patient was found to be intermittently hypoxic at [facility]. He was recently just discharged from there to his home following a stay for a left hip replacement. He has been on Coumadin. notes that his last Coumadin 2 days ago was therapeutic at 2.2. On exam he does have a ulcer which appears to be infected on his left gluteus region. Chest x-ray shows worsening effusion. He was 83-84% on room air. He is placed on 2-3 L is cannula. PH is 7.28. He is retaining CO2 at 70. BMP was unremarkable. LFTs or bilirubin and troponin was negative. UA does show infection with Sandoval in place. EKG was unchanged. Patient was given a Xanax I did order a CT PE. This was canceled prior to it being obtained on the patient. I order this with the hypoxia an initial presentation of mild hypotension with him recently being started on Coumadin and INR is initially in early June being low. Currently he states he patient family were updated bedside. His admitted to internal medicine for further workup. Medication Reconcilliation Current Medication List: was personally reviewed by me Blood Pressure Screening Patient's blood pressure: Normal blood pressure Blood pressure disposition: Did not require urgent referral Consults Time Called: 2120 Consulting Physician: Dr. Thomas, [facility] hospitalist Returned Call: [phone] I reviewed the patient's case with him. He will evaluate the patient for further management. Impression Primary Impression: Acute respiratory failure with hypoxia and hypercapnia Additional Impressions: Pleural effusion Hypoxia Hyperkalemia Scribe Attestation The scribe's documentation has been prepared under my direction and personally reviewed by me in its entirety. I confirm that the note above accurately reflects all work, treatment, procedures, and medical decision making performed by me. Departure Information Dispostion Being Evaluated By Hospitalist Referrals Byron Vizcaino M.D. (PCP) Patient Instructions My [facility] Problem Qualifiers
[2017-07-28 22:48] LABS: BLOOD UREA NITROGEN 16 mg/dl (7-18); CALCIUM 8.3 mg/dl (8.5-10.1); CARBON DIOXIDE 30 mmol/L (21-32); CREATININE 1.02 mg/dl (0.60-1.40); GLUCOSE 101 mg/dl (70-99); POTASSIUM 4.4 mmol/L (3.5-5.1); SODIUM 135 mmol/L (136-145)
[2017-07-29] VITALS (28 sets, daily range): BP systolic 76–137; BP diastolic 40–74; PULSE 73–111; TEMP 36.8–38.2; O2SAT 89–100; Ht 182.9 cm; Wt 90.2 kg
[2017-07-29] MEDS ORDERED: IV FLUIDS COMPLETED PRN ×2 (02:30)
[2017-07-29] MEDS ORDERED: FUROSEMIDE INJ 40 MG in SYRINGE 0 ML IV ONE ×2 (03:15→15:30)
[2017-07-29] MEDS: LEVOTHYROXINE 25 MCG TAB PO SCH (04:32)
[2017-07-29 06:10] LABS: CALCIUM 8.3 mg/dl (8.5-10.1); CREATININE 1.06 mg/dl (0.60-1.40); POTASSIUM 4.2 mmol/L (3.5-5.1)
[2017-07-29 06:36] LABS: INFLUENZA B ANTIGEN Neg for Influ B (NEG)
[2017-07-29 06:46] LABS: HEMATOCRIT 34.8 % (42-52); HEMOGLOBIN 10.5 g/dL (14.0-18.0); MEAN CELL VOLUME 89.7 fL (80-100); MEAN CORPUSCULAR HEMOGLOBIN 27.1 pg (25-34); MEAN CORPUSCULAR HGB CONC 30.2 g/dl (32-36); MEAN PLATELET VOLUME 12.1 fL (7.4-10.4); PLATELET COUNT 181 K/uL (130-400); RED CELL DISTRIBUTION WIDTH CV 16.5 % (11.5-14.5); RED CELL DISTRIBUTION WIDTH SD 53.7 fL (36.4-46.3); WHITE BLOOD COUNT 8.79 K/uL (4.8-10.8)
[2017-07-29] MEDS: ALBUT/IPRATROP 3MG/0.5MG NEB 3 ML VIAL INH SCH ×3 (07:28→16:25)
[2017-07-29] MEDS ORDERED: CEFTRIAXONE SOD INJ 1 GM in DEXTROSE 5% ADD-VANTAGE 50ML 50 ML IV SCH (08:00)
[2017-07-29] MEDS: AMIODARONE 200 MG TAB PO SCH (08:16)
[2017-07-29] MEDS: ASPIRIN 81 MG ECTAB PO SCH (08:16)
[2017-07-29] MEDS: ASCORBIC ACID 500 MG TAB PO SCH (08:18)
[2017-07-29] MEDS: FAMOTIDINE 20 MG TAB PO SCH (08:18)
[2017-07-29] MEDS ORDERED: METOPROLOL SUCC 50MG EXT REL TAB PO SCH (09:00)
[2017-07-29] MEDS ORDERED: ENALAPRIL MALEATE 10 MG TAB PO SCH (09:00)
--- NOTE | 2017-07-29 10:14 | Neurology Consultation ---
Neurology Consultation Date of Consultation: Jul 29, 2017. Attending Physician: Luis Thomas M.D. Primary Care Physician: Edilberto Valiente M.D. Reason for Consultation: Lower extremity weakness and history of transverse myelitis History of Present Illness Source: patient, hospital records The patient is a 77-year-old male with multiple chronic medical problems including coronary artery disease, congestive heart failure, atrial fibrillation , history of aortic valve replacement, hypertension, hyperlipidemia, chronic kidney disease, hypothyroidism, and transverse myelitis diagnosed 10 years ago in [place]. History also notable for a recent left hip fracture with subsequent admission to [facility] for rehabilitation. The patient was discharged from [facility] 2-3 days ago. While in [facility] he was noted to have some problems with intermittent hypoxia. Over the past 2-3 days the patient has been complaining of generalized weakness with difficulty ambulating. The patient does report that he has had chronic ambulatory trouble ever since he was diagnosed with transverse myelitis 10 years ago. He uses either a cane or walker but has noticed a greater degree of weakness recently. He does admit that he typically experiences a greater degree of lower extremity weakness in the context of infections and other illnesses. He also reports chronic sensory loss in the lower limbs related to his history of transverse myelitis. Current medical issues at this time include chronic hypoxia, congestive heart failure, and hyperkalemia as well as a recent surgery for a left hip fracture. Past Medical/Surgical History Medical Problems: (1) Abdom Aortic Aneurysm Status: Chronic (2) Acute respiratory failure with hypoxia and hypercapnia Status: Acute (3) Aortic dissection, thoracic Status: Chronic (4) CAD (coronary artery disease) Status: Chronic (5) Chronic Kidney Disease, Unspecified Status: Chronic (6) Chronic Obstructive Pulmonary Disease W (Acute) Exacerbation Status: Chronic (7) Closed left hip fracture Status: Acute (8) Complication of catheter Status: Acute (9) HTN (hypertension) Status: Chronic (10) Hyperlipidemia, Unspecified Status: Chronic (11) Hypertrophy (Benign) Of Prostate W/O Urinary Obst & Oth Luts Status: Chronic (12) Hypothyroidism, Unspecified Status: Chronic (13) Hypoxia Status: Acute (14) Pleural effusion Status: Acute (15) 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 (16) Urinary retention Status: Acute Surgical Problems: (1) 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 (2) Aortocoronary Bypass Status: Chronic (3) 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 Family History Noncontributory Social History Smoking Status: Former smoker Drug Use: none Marital Status: Housing Status: lives with family Occupation Status: retired Allergies Coded Allergies: Adhesives (Verified Allergy, Unknown, removed skin, 06/24/17) Current Inpatient Medications Current Inpatient Medications Medications (Trade) Dose Ordered Sig/Deino Route Start Time Stop Time Status Last Admin Dose Admin Amiodarone HCl (Cordarone Tab) 200 mg QAM PO 07/29/17 09:00 08/28/17 08:59 07/29/17 08:16 200 MG Ascorbic Acid (Vitamin C Tab) 500 mg QAM PO 07/29/17 09:00 08/28/17 08:59 07/29/17 08:18 500 MG Aspirin (Ecotrin Tab) 81 mg QAM PO 07/29/17 09:00 08/28/17 08:59 07/29/17 08:16 81 MG Docusate Sodium (coLACE CAP) 100 mg QPM PO 07/29/17 21:00 08/28/17 20:59 Famotidine (Pepcid Tab) 20 mg QAM PO 07/29/17 09:00 08/28/17 08:59 07/29/17 08:18 20 MG Levothyroxine Sodium (Synthroid Tab) 25 mcg DAILYBB PO 07/29/17 06:30 08/28/17 06:59 07/29/17 04:32 25 MCG Metoprolol Succinate (Toprol Xl Tab) 100 mg QAM PO 07/29/17 09:00 08/28/17 08:59 07/29/17 08:17 100 MG Pravastatin Sodium (Pravachol Tab) 40 mg HS PO 07/29/17 21:00 08/28/17 20:59 Tamsulosin HCl (Flomax Cap) 0.4 mg HS PO 07/29/17 21:00 08/28/17 20:59 Warfarin Sodium (Coumadin Tab) 5 mg DAILY@16 PO 07/29/17 16:00 08/28/17 15:59 Enalapril Maleate (Vasotec Tab) 20 mg QAM PO 07/29/17 09:00 08/28/17 08:59 07/29/17 08:16 20 MG Acetaminophen (Tylenol Tab) 650 mg Q4H PRN PO 07/28/17 22:00 08/27/17 21:59 Al Hydrox/Mg Hydrox/Simethicone (Maalox Max Susp) 15 ml Q4H PRN PO 07/28/17 22:00 08/27/17 21:59 Magnesium Hydroxide (Milk Of Magnesia Susp) 30 ml Q6H PRN PO 07/28/17 22:00 08/27/17 21:59 Polyethylene (Miralax Powder Packet) 17 gm DAILY PRN PO 07/28/17 22:00 08/27/17 21:59 Ondansetron HCl (Zofran Inj) 4 mg Q6H PRN IV 07/28/17 22:00 08/27/17 21:59 Ceftriaxone Sodium 1 gm/ Dextrose 50 ml @ 100 mls/hr Q24H IV 07/29/17 08:00 08/08/17 07:59 07/29/17 08:15 100 MLS/HR Miscellaneous (Iv Fluids Completed) 1 ea PRN PRN N/A 07/29/17 02:30 07/29/18 02:29 Albuterol/ Ipratropium (Duoneb) 3 ml QIDR INH 07/29/17 08:00 08/28/17 07:59 07/29/17 07:28 3 ML Review of Systems Constitutional: Patient complains of feeling weak in general Eyes: No vision loss or diplopia Ears: No hearing loss or vertigo. Patient does complain of a chronically soft voice related to a previous intubation Cardiovascular: No chest pain or palpitations Respiratory: Patient complains of feeling chronically short of breath Neurological: As per history of present illness Skin: No rash, patient noted to have an ulcer in the left gluteal region A full 10 point review of systems is obtained from this patient with pertinent positives and negatives described in the history of present illness. All remaining systems reviewed and are negative. Physical Exam Vital Signs (Past 24 Hrs): Date Time Temp Pulse Resp B/P (MAP) Pulse Ox O2 Delivery O2 Flow Rate FiO2 07/29/17 09:22 91 Nasal Cannula 5.0 07/29/17 08:00 37.4 90 16 100/59 (73) 91 Nasal Cannula 5.0 07/29/17 07:28 89 18 91 Nasal Cannula 5.0 07/29/17 04:00 37.2 85 17 137/74 (95) 92 Nasal Cannula 4.0 07/29/17 04:00 92 Nasal Cannula 4.0 07/29/17 00:30 36.8 75 17 107/65 Nasal Cannula 3.0 07/28/17 23:58 72 20 108/63 93 07/28/17 22:13 74 22 113/61 98 Nasal Cannula 2.0 07/28/17 21:03 77 20 120/64 94 Nasal Cannula 2.0 07/28/17 20:17 74 07/28/17 20:04 98 Nasal Cannula 2.0 07/28/17 20:01 36.8 71 20 108/57 98 Nasal Cannula 2.0 07/28/17 19:55 88 Room Air 07/28/17 18:36 36.8 73 22 95/53 82 Room Air The patient is a well-developed, chronically ill-appearing elderly male. He is alert and oriented to person place and time. Recent and remote memory intact. Attention and concentration slightly diminished. Some difficulty spelling world backwards. Patient exhibits a soft hoarse sounding voice which is chronic for him. No dysarthria. No problems with naming or repetition. Patient exhibits a normal age appropriate fund of knowledge and normal vocabulary. Visual uribe full to confrontation. Visual acuity normal. Pupils equal round reactive to light and accommodation. Eye movements normal. Facial sensation intact. There is normal facial symmetry and strength. No facial droop. Hearing intact to finger rub bilaterally. Palate elevates to midline. Shoulder shrug intact. Tongue protrudes to midline. There is a vibratory deficit for both lower limbs extending up to the knees. Sensation to light touch and temperature intact. There is a significant proprioceptive deficit at the toes bilaterally. Deep tendon reflexes are 2+ for the upper extremities, 3+ at the patellar tendons, 2 + at the Achilles tendons. Plantar responses are upgoing bilaterally. There is no dysmetria with finger to nose bilaterally. Patient has mild difficulty with heel to peres bilaterally. Ophthalmoscopic examination reveals normal-appearing optic disks and posterior segments bilaterally, no papilledema or hemorrhages. Carotid pulses normal to auscultation bilaterally, no bruits. Gait and station cannot be tested due to safety concerns. Patient exhibits normal muscle strength for the arms and legs bilaterally, proximally and distally. Movement initiation for the legs is slow. Muscle tone normal throughout. No atrophy. No abnormal movements observed. Laboratory Results Past 24 Hours: 07/29/17 05:15 07/29/17 05:15 Test 07/28/17 20:12 07/28/17 20:16 07/28/17 20:30 07/28/17 20:52 Bedside Lactic Acid Venous 1.03 mmol/L (0.90-1.70) Bedside Hemoglobin 11.6 g/dl (14.0-18.0) Bedside Hematocrit 34 % (42-52) Bedside Sodium 132 mEq/L (135-144) Bedside Potassium 5.8 mEq/L (3.3-5.0) Bedside Chloride 98 mEq/L (101-112) Bedside Total CO2 29 mEq/l (24-31) Bedside Blood Urea Nitrogen 23 mg/dl (7-18) Bedside Creatinine 1.1 mg/dl (0.6-1.3) Bedside Glucose (other) 106 mg/dl (70-99) Bedside Ionized Calcium (Enrique) 0.91 mmol/l (1.12-1.32) Immature Granulocyte % (Auto) 0.9 % White Blood Count 7.60 K/uL (4.8-10.8) Red Blood Count 3.57 M/uL (4.7-6.1) Hemoglobin 9.9 g/dL (14.0-18.0) Hematocrit 32.1 % (42-52) Mean Corpuscular Volume 89.9 fL (80-100) Mean Corpuscular Hemoglobin 27.7 pg (25-34) Mean Corpuscular Hemoglobin Concent 30.8 g/dl (32-36) Platelet Count 199 K/uL (130-400) Mean Platelet Volume 10.8 fL (7.4-10.4) Neutrophils (%) (Auto) 68.5 % Lymphocytes (%) (Auto) 17.6 % Monocytes (%) (Auto) 10.0 % Eosinophils (%) (Auto) 2.6 % Basophils (%) (Auto) 0.4 % Neutrophils # (Auto) 5.20 K/uL (1.4-6.5) Lymphocytes # (Auto) 1.34 K/uL (1.2-3.4) Monocytes # (Auto) 0.76 K/uL (0.11-0.59) Eosinophils # (Auto) 0.20 K/uL (0-0.5) Basophils # (Auto) 0.03 K/uL (0-0.2) Immature Granulocyte # (Auto) 0.07 K/uL (0.00-0.02) Prothrombin Time 32.5 SECONDS (9.0-12.0) Prothromb Time International Ratio 3.2 (0.9-1.1) Total Bilirubin 0.5 mg/dl (0.2-1) Direct Bilirubin 0.1 mg/dl (0-0.2) Aspartate Amino Transf (AST/SGOT) 20 U/L (15-37) Alanine Aminotransferase (ALT/SGPT) 26 U/L (12-78) Alkaline Phosphatase 78 U/L (45-117) Total Creatine Kinase 53 U/L (39-308) Creatine Kinase MB 1.8 ng/ml (0.5-3.6) Creatine Kinase MB Ratio 3.4 (0-3.0) Troponin I < 0.015 ng/ml (0-0.045) Total Protein 7.0 gm/dl (6.4-8.2) Albumin 2.7 gm/dl (3.4-5.0) Urine Color DK YELLOW Urine Appearance CLOUDY (CLEAR) Urine pH 5.0 (4.5-7.5) Urine Specific Surveyor 1.027 (1.000-1.030) Urine Protein 1+ (NEG) Urine Glucose (UA) NEG (NEG) Urine Ketones TRACE (NEG) Urine Occult Blood 3+ (NEG) Urine Nitrite NEG (NEG) Urine Bilirubin NEG (NEG) Urine Urobilinogen NEG (NEG) Urine Leukocyte Esterase MODERATE (NEG) Urine WBC (Auto) >30 /hpf (0-5) Urine RBC (Auto) >30 /hpf (0-4) Urine Hyaline Casts (Auto) 1-5 /lpf (0-5) Urine Epithelial Cells (Auto) >30 /lpf (0-5) Urine Bacteria (Auto) 1+ (NEG) Urine Renal Epithelial Cells /lpf (0-5) Test 07/28/17 22:12 07/29/17 05:15 07/29/17 05:45 Venous Blood pH 7.28 (7.36-7.41) Venous Blood Partial Pressure CO2 70 mmHg (38.0-50.0) Venous Blood Partial Pressure O2 30 mmHg Venous Blood HCO3 32 mmol/L Venous Blood Oxygen Saturation < 60.0 % Venous Blood Base Excess 4.0 mEq/L Red Blood Count 3.88 M/uL (4.7-6.1) Mean Corpuscular Volume 89.7 fL (80-100) Mean Corpuscular Hemoglobin 27.1 pg (25-34) Mean Corpuscular Hemoglobin Concent 30.2 g/dl (32-36) RDW Standard Deviation 53.7 fL (36.4-46.3) RDW Coefficient of Variation 16.5 % (11.5-14.5) Mean Platelet Volume 12.1 fL (7.4-10.4) Anion Gap 5.0 mmol/L (3-11) Est Creatinine Clear Calc Drug Dose 70.1 ml/min Estimated GFR () 78.1 Estimated GFR (Non- 67.4 BUN/Creatinine Ratio 14.0 (10-20) Calcium Level 8.3 mg/dl (8.5-10.1) Magnesium Level 2.0 mg/dl (1.8-2.4) Influenza Type A Antigen Neg for Influ A (NEG) Influenza Type B Antigen Neg for Influ B (NEG) Impression History of transverse myelitis occurring 10 years ago with chronic residual lower extremity weakness, sensory loss, hyperreflexia, and upgoing toes on examination. Transverse myelitis is not typically a "relapsing condition." This patient's lower extremity symptoms are chronic but have likely symptomatically worsened in the context of his other medical problems including hypoxia, CHF, hyperkalemia, urinary tract infection, and recent left hip surgery. Plan There is no indication to administer corticosteroids for transverse myelitis in this patient's case. Continue medical management. I expect this patient's neurological status to return to baseline when he is medically stabilized. Again, his baseline functioning is impaired due to sequelae of his remote transverse myelitis. No further recommendations. Please contact me if I may be of further assistance
--- NOTE | 2017-07-29 14:54 | DIAGNOSTIC IMAGING REPORT ---
CHEST ONE VIEW PORTABLE HISTORY: hypoxia COMPARISON: Chest 07/28/2017. FINDINGS: Progressive interstitial and vascular thickening consistent with pulmonary edema. The heart remains enlarged. Postoperative changes and an aortic valve prosthesis are again noted. Left-sided pacemaker/defibrillator. Small bilateral pleural effusions have progressed. Left basilar linear densities favor subsegmental atelectasis. This is not significantly changed. Surgical clips within the right axilla. IMPRESSION: Progression of the mild to moderate pulmonary edema and small bilateral pleural effusions. Electronically signed by: Hugh Freeman M.D. 07/29/2017 2:53 PM Dictated Date/Time: 07/29/2017 2:52 PM
--- NOTE | 2017-07-29 14:55 | Hospitalist Progress Note ---
Hospitalist Progress Note Date of Service Jul 29, 2017. (Judie Rivera .[place]) Subjective Pt evaluation today including: conversation w/ patient, physical exam, chart review, lab review, review of inpatient medication list Voiding: suggs catheter in place Mr. Garcia is very somnolent, awakens easily but falls asleep while we are talking. He continues to feel very weak. His oxygen needs have increased and he is now requiring 5L O2 ROS Constitutional: no chills, aches, sweats or fever Respiratory: sob, no cough Cardiac: no chest pain, palpitations, edema, orthopnea or lightheadedness GI: no abdominal pain, nausea, vomiting, diarrhea or constipation : no dysuria or hesitancy Extremities: see HPI Skin: no rash All other systems reviewed and negative (Judie Rivera CRNP) Medications Medications Administered Medications (Trade) Dose Ordered Sig/Deion Route Start Time Stop Time Status Last Admin Dose Admin Sodium Chloride 1,000 ml @ 999 mls/hr Q1H1M STAT IV 07/28/17 19:54 07/28/17 20:54 DC 07/28/17 19:54 999 MLS/HR Cefepime HCl 1000 mg/Dextrose 111 ml @ 200 mls/hr NOW STAT IV 07/28/17 21:20 07/28/17 21:53 DC 07/28/17 21:52 200 MLS/HR Levofloxacin (Levaquin / D5W) 750 mg NOW STAT IV 07/28/17 21:20 07/28/17 21:22 DC 07/28/17 22:13 750 MG Amiodarone HCl (Cordarone Tab) 200 mg QAM PO 07/29/17 09:00 08/28/17 08:59 07/29/17 08:16 200 MG Ascorbic Acid (Vitamin C Tab) 500 mg QAM PO 07/29/17 09:00 08/28/17 08:59 07/29/17 08:18 500 MG Aspirin (Ecotrin Tab) 81 mg QAM PO 07/29/17 09:00 08/28/17 08:59 07/29/17 08:16 81 MG Famotidine (Pepcid Tab) 20 mg QAM PO 07/29/17 09:00 08/28/17 08:59 07/29/17 08:18 20 MG Levothyroxine Sodium (Synthroid Tab) 25 mcg DAILYBB PO 07/29/17 06:30 08/28/17 06:59 07/29/17 04:32 25 MCG Metoprolol Succinate (Toprol Xl Tab) 100 mg QAM PO 07/29/17 09:00 08/28/17 08:59 07/29/17 08:17 100 MG Enalapril Maleate (Vasotec Tab) 20 mg QAM PO 07/29/17 09:00 08/28/17 08:59 07/29/17 08:16 20 MG Furosemide 40 mg/ Syringe 4 ml @ 4 mls/min ONE ONCE IV 07/29/17 03:15 07/29/17 03:16 DC 07/29/17 04:32 4 MLS/MIN Ceftriaxone Sodium 1 gm/ Dextrose 50 ml @ 100 mls/hr Q24H IV 07/29/17 08:00 08/08/17 07:59 07/29/17 08:15 100 MLS/HR Albuterol/ Ipratropium (Duoneb) 3 ml QIDR INH 07/29/17 08:00 08/28/17 07:59 07/29/17 11:17 3 ML (Judie Rivera, [place]) Objective Vital Signs Date Time Temp Pulse Resp B/P (MAP) Pulse Ox O2 Delivery O2 Flow Rate FiO2 07/29/17 12:00 Nasal Cannula 5.0 07/29/17 11:58 37.3 89 15 98/57 (71) 95 Nasal Cannula 07/29/17 11:17 77 18 90 Nasal Cannula 5.0 07/29/17 09:22 91 Nasal Cannula 5.0 07/29/17 08:00 Nasal Cannula 5.0 07/29/17 08:00 37.4 90 16 100/59 (73) 91 Nasal Cannula 5.0 07/29/17 07:28 89 18 91 Nasal Cannula 5.0 07/29/17 04:00 37.2 85 17 137/74 (95) 92 Nasal Cannula 4.0 07/29/17 04:00 92 Nasal Cannula 4.0 07/29/17 00:30 36.8 75 17 107/65 Nasal Cannula 3.0 07/28/17 23:58 72 20 108/63 93 07/28/17 22:13 74 22 113/61 98 Nasal Cannula 2.0 07/28/17 21:03 77 20 120/64 94 Nasal Cannula 2.0 07/28/17 20:17 74 07/28/17 20:04 98 Nasal Cannula 2.0 07/28/17 20:01 36.8 71 20 108/57 98 Nasal Cannula 2.0 07/28/17 19:55 88 Room Air 07/28/17 18:36 36.8 73 22 95/53 82 Room Air (Judie Rivera CRNP) Physical Exam Notes: General: no distress Eyes: normal inspection, PERLL Respiratory: chest non tender, clear to auscultation, normal breath sounds, no respiratory distress, no accessory muscle use Cardiac: regular rate and rhythm, no rub or gallop, 3/6 systolic murmur URSB, no edema, no jvd GI/: active bowel sounds, no abd pain or tenderness, soft, non distended Extremities: able to lift arms but unable to lift either leg from bed. Pedal push/pull equal Neuro/Psych: alert and oriented x 3, normal mood and affect Skin: normal color, dry (Judie Rivera CRNP) Laboratory Results Last 24 Hours Test 07/28/17 20:12 07/28/17 20:16 07/28/17 20:30 07/28/17 20:52 Bedside Lactic Acid Venous 1.03 mmol/L Bedside Hemoglobin 11.6 g/dl Bedside Hematocrit 34 % Bedside Sodium 132 mEq/L Bedside Potassium 5.8 mEq/L Bedside Chloride 98 mEq/L Bedside Total CO2 29 mEq/l Anion Gap 12.0 mmol/L 6.0 mmol/L Bedside Blood Urea Nitrogen 23 mg/dl Bedside Creatinine 1.1 mg/dl Bedside Glucose (other) 106 mg/dl Bedside Ionized Calcium (Enrique) 0.91 mmol/l White Blood Count 7.60 K/uL Red Blood Count 3.57 M/uL Hemoglobin 9.9 g/dL Hematocrit 32.1 % Mean Corpuscular Volume 89.9 fL Mean Corpuscular Hemoglobin 27.7 pg Mean Corpuscular Hemoglobin Concent 30.8 g/dl Platelet Count 199 K/uL Mean Platelet Volume 10.8 fL Neutrophils (%) (Auto) 68.5 % Lymphocytes (%) (Auto) 17.6 % Monocytes (%) (Auto) 10.0 % Eosinophils (%) (Auto) 2.6 % Basophils (%) (Auto) 0.4 % Neutrophils # (Auto) 5.20 K/uL Lymphocytes # (Auto) 1.34 K/uL Monocytes # (Auto) 0.76 K/uL Eosinophils # (Auto) 0.20 K/uL Basophils # (Auto) 0.03 K/uL RDW Standard Deviation 53.7 fL RDW Coefficient of Variation 16.5 % Immature Granulocyte % (Auto) 0.9 % Immature Granulocyte # (Auto) 0.07 K/uL Prothrombin Time 32.5 SECONDS Prothromb Time International Ratio 3.2 Sodium Level 134 mmol/L Potassium Level 4.4 mmol/L Chloride Level 98 mmol/L Carbon Dioxide Level 31 mmol/L Blood Urea Nitrogen 16 mg/dl Creatinine 1.09 mg/dl Estimated GFR () 75.5 Estimated GFR (Non- 65.1 BUN/Creatinine Ratio 14.3 Random Glucose 100 mg/dl Calcium Level 8.1 mg/dl Magnesium Level 2.2 mg/dl Total Bilirubin 0.5 mg/dl Direct Bilirubin 0.1 mg/dl Aspartate Amino Transf (AST/SGOT) 20 U/L Alanine Aminotransferase (ALT/SGPT) 26 U/L Alkaline Phosphatase 78 U/L Total Creatine Kinase 53 U/L Creatine Kinase MB 1.8 ng/ml Creatine Kinase MB Ratio 3.4 Troponin I < 0.015 ng/ml Total Protein 7.0 gm/dl Albumin 2.7 gm/dl Urine Color DK YELLOW Urine Appearance CLOUDY Urine pH 5.0 Urine Specific Roggen 1.027 Urine Protein 1+ Urine Glucose (UA) NEG Urine Ketones TRACE Urine Occult Blood 3+ Urine Nitrite NEG Urine Bilirubin NEG Urine Urobilinogen NEG Urine Leukocyte Esterase MODERATE Urine WBC (Auto) >30 /hpf Urine RBC (Auto) >30 /hpf Urine Hyaline Casts (Auto) 1-5 /lpf Urine Epithelial Cells (Auto) >30 /lpf Urine Bacteria (Auto) 1+ Urine Renal Epithelial Cells /lpf Test 07/28/17 22:12 07/29/17 05:15 07/29/17 05:45 Venous Blood pH 7.28 Venous Blood Partial Pressure CO2 70 mmHg Venous Blood Partial Pressure O2 30 mmHg Venous Blood HCO3 32 mmol/L Venous Blood Oxygen Saturation < 60.0 % Venous Blood Base Excess 4.0 mEq/L Sodium Level 135 mmol/L 135 mmol/L Potassium Level 4.4 mmol/L 4.2 mmol/L Chloride Level 98 mmol/L 98 mmol/L Carbon Dioxide Level 30 mmol/L 32 mmol/L Anion Gap 6.0 mmol/L 5.0 mmol/L Blood Urea Nitrogen 16 mg/dl 15 mg/dl Creatinine 1.02 mg/dl 1.06 mg/dl Estimated GFR () 81.8 78.1 Estimated GFR (Non- 70.6 67.4 BUN/Creatinine Ratio 15.5 14.0 Random Glucose 101 mg/dl 89 mg/dl Calcium Level 8.3 mg/dl 8.3 mg/dl White Blood Count 8.79 K/uL Red Blood Count 3.88 M/uL Hemoglobin 10.5 g/dL Hematocrit 34.8 % Mean Corpuscular Volume 89.7 fL Mean Corpuscular Hemoglobin 27.1 pg Mean Corpuscular Hemoglobin Concent 30.2 g/dl RDW Standard Deviation 53.7 fL RDW Coefficient of Variation 16.5 % Platelet Count 181 K/uL Mean Platelet Volume 12.1 fL Est Creatinine Clear Calc Drug Dose 70.1 ml/min Magnesium Level 2.0 mg/dl Influenza Type A Antigen Neg for Influ A Influenza Type B Antigen Neg for Influ B (Judie Rivera, [place]) Assessment and Plan Mr. Garcia is a 77 year old man here for increased weakness Weakness - neuro consulted - patient has history of transverse myelitis however Dr. Collins does not feel this is currently an issue. His feeling is that patient's weakness is likely an exacerbation of his existing baseline weakness due to medical condition such as UTI and hypoxia. Will likely improve as these things improve. - PT/OT Hypoxia/CHF - daily Bumex was discontinued at [facility] - given a dose of IV lasix yesterday - CXR showed increased pulmonary congestion - 40 IV lasix now - follow prp to monitor kidney function - may need chest CT - start Zosyn, vanc, dc rocephin - consult ID Hyperkalemia - it appears that he continued to take PO K despite DC of Bumex - K trending down - repeat prp in am AF - INR is therapeutic on Coumadin - rate is controlled with Metoprolol, Amio. - patient has bovine aortic valve per his - outpatient notes state that his INR was to be kept within normal AF parameters of 2-3 CAD - no evidence of ACS - cont ASA, Statin, B xavier. 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 Discussed with [place] Rivera and agree with findings and plan as documented in the note. Any exceptions or clarifications are listed here: Pt admitted with weakness, suspected UTI, and acute hypoxemic and hypercapnic respiratory failure after recent dc from [facility] rehab 2 days prior. He reports he has had a cough. He was initially treated with IV Cefepime and Levaquin, but then switched to Rocephin this AM for suspected UTI. He has a large left buttocks decubitus ulcer that was growing MSSA on culture from 07/17/17. During the day today, RN reports mentation was waxing and waning, along with a fever. His O2 requirement increased and he had a repeat CXR which showed increasing pulmonary edema. Personal review of images shows worsening pleural effusions, impossible to tell if underlying infiltrate on the portable CXR. He was given lasix 40mg IV x 1 and has only made about 40 ml of UOP in the last 4 hours since the lasix was given. Repeat PRP showed worsening rehabilitator to 1.44. His BP was then 76/44. I bolused him with NS 500 ml x 1 and I asked the Grain Operator to consult regarding hypotension in setting of known CHF, possible sepsis. When I came to see pt, he was then able to tell me his name and location, correct year and month but wrong date. RN reported shortly before that he didn' t know his own name. He reports some right sided rib pain from where he was picked up yesterday to be brought into the hospital. No CP, has some SOB, no abd pain. 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 -Transfer to ICU for placement of CVC and possible pressors- defer choice to Grain Operator and appreciate consultation -hold home metoprolol and enalapril -continue Zosyn and Vanco for suspected GNR and MRSA PNA given recent hospitalization, also covers for skin and urine infections -follow Urine and BCxs -continue IVFs as needed, but may need dobutamine given h/o moderate LV dysfunction, has BiV pacer, consdier Cardiology consultation -ID consulted as well -Appreciate Neuro consult recommending no steroids at this time for h/o transverse myelitis -wound care and turning for buttocks wound -is oliguric, with SANTHOSH-->continue IVFs, follow UOP, maintain Suggs -continue coumadin and follow INR Pt would like to be intubated for resp failure, but no CPR POA he names is his Documented By: Sandy Kidd (Sandy Kidd MD)
[2017-07-29] MEDS: ACETAMINOPHEN 325 MG TAB PO PRN (15:13)
[2017-07-29] MEDS ORDERED: VANCOMYCIN CONSULT ACTIVE PRN (16:00)
[2017-07-29] MEDS ORDERED: PIPERACILL/TAZOBAC CONSULT ACTIVE PRN (16:00)
[2017-07-29] MEDS ORDERED: PIPERACILL/TAZOBAC IV 4.5 GM in DEXTROSE 5% 100ML IV STA (16:11)
[2017-07-29] MEDS ORDERED: VANCOMYCIN INJ 2,500 MG in SODIUM CHLORIDE 0.9% 500ML 500 ML IV STA (16:12)
[2017-07-29] MEDS: WARFARIN SOD 5 MG TAB PO SCH (16:36)
[2017-07-29 18:02] LABS: CALCIUM 7.9 mg/dl (8.5-10.1); CREATININE 1.44 mg/dl (0.60-1.40); POTASSIUM 4.2 mmol/L (3.5-5.1)
[2017-07-29] MEDS ORDERED: NURSING VERBAL MED ORDER ONE (18:45)
[2017-07-29] MEDS ORDERED: SODIUM CHLORIDE 0.9% 500ML 500 ML IV STA (19:43)
[2017-07-29] MEDS ORDERED: DOPamine 400MG / D5W 400 MG IV PRN (20:23)
[2017-07-29] MEDS ORDERED: DOPamine 400MG / 250ML D5W ONE (20:27)
[2017-07-29] MEDS: PRAVASTATIN SOD 40 MG TAB PO SCH (20:42)
[2017-07-29] MEDS ORDERED: RAPID SEQUENCE INDUCTION BAG ONE (20:50)
[2017-07-29] MEDS ORDERED: DOCUSATE SODIUM 100 MG CAP PO SCH (21:00)
[2017-07-29] MEDS ORDERED: VANCOMYCIN INJ 1,000 MG in SODIUM CHLORIDE 0.9% 250ML 250 ML IV SCH (21:00)
[2017-07-29] MEDS ORDERED: TAMSULOSIN HCL 0.4 MG CAP PO SCH (21:00)
--- NOTE | 2017-07-29 21:56 | Critical Care Consultation ---
Critical Care Consultation Date of Consultation: Jul 29, 2017. Attending Physician: Luis Thomas M.D. Reason for Consultation: Hypotension in the setting of increasing oxygen demands History of Present Illness Susan Garcia is a 77yo male who presented to [facility] ED approx 2 days after discharge from [facility] where he was residing after recent left hip arthroplasty after fracture(06/26/17). He presented for increased weakness at which time he was found to be hypoxic at 83%. Pt denied CP, SOB, or dyspnea. He states he couldn't ambulate. Pt had been taken off his Bumex while at [facility] but continued his Potassium and was found to have elevated K which has since trended down. Pt received almost 3L of fluids in the ED prior to admission to telemetry. CXR on admission demonstrated vascular congestion. This afternoon pt became somnolent, confused, and required increasing demands in O2. Susan's mentation was reported by nursing to have waxed and waned this afternoon at which time patient was unable to state his own name. Patient did receive[] fluid bolus and was transferred to the intensive care unit for central venous access for vasopressor administration in the setting of new onset hypertension. Dr. Persaud to discuss CODE STATUS with the patient who stated that in the event of cardiac arrest he would not wish to be resuscitated. However during this hospitalization should he need intubated for respiratory reasons, that was permissible. Upon examining patient and the ICU he is again alert and oriented 3. While he continues to be somewhat lethargic he is easily aroused and holds conversations without demonstrating shortness of breath. He denies denies weight loss, fever , dizziness, headache, numbness, change in vision, sore throat, chest pain, palpitations, awareness of tachyarrhythmias, leg swelling, shortness of breath, cough, nausea, vomiting, bloody stools, diarrhea, constipation, abdominal pain, other changes in urine or bowel habits. Patient does report current issues with urinary retention requiring a chronic indwelling catheter. Of note today his creatinine has risen and urinary output has decreased significantly. ECHO 01/31/17 * -- Conclusions -- * 1. Technically limited study. * 2. Severely dilated LV with mild concentric LVH. * 3. Moderate LV dysfunction. LVEF 35-40%. Mid to apical septal and true apex akinesis. Mid to apical anterior hypokinesis. Wall motion consistent with possible LAD distribution infarct. * 4. Dilated RV with borderline RV funciton. * 5. Aortic valve sclerosis without stenosis. Trace MR * 6. Borderline PA pressures. Est PASP 35-40 mmHg. Normal estimated RA pressure. * 7. Severe biatrial enlargement. * 8. No prior studies for comparison. Past Medical/Surgical History Medical Problems: (1) Abdom Aortic Aneurysm (2) Aortic dissection, thoracic (3) Beta-hemolytic group B streptococcal sepsis (4) CAD (coronary artery disease) (5) Chronic Kidney Disease, Unspecified (6) Chronic Obstructive Pulmonary Disease W (Acute) Exacerbation (7) Fever (8) Gram positive septicemia (9) H/O thrombosis (10) H/O: pneumonia (11) HTN (hypertension) (12) Hyperkalemia (13) Hyperlipidemia, Unspecified (14) Hypertrophy (Benign) Of Prostate W/O Urinary Obst & Oth Luts (15) Hypothyroidism, Unspecified (16) Lower extremity weakness (17) Lumbar back pain (18) Presence of combination internal cardiac defibrillator (ICD) and pacemaker (19) Transverse myelitis Surgical Problems: (1) aortic valve replacement with cadaver valve (2) Aortocoronary Bypass (3) H/O aortic valve replacement with porcine valve (4) History of aortic valve replacement with metallic valve Family History Patient reports no known family medical history. Social History Smoking Status: Former Smoker Drug Use: none Marital Status: Housing Status: lives with family Occupation Status: retired Allergies Coded Allergies: Adhesives (Verified Allergy, Unknown, removed skin, 06/24/17) Home Medications Scheduled Amiodarone HCl (Amiodarone HCl), 200 MG PO QAM Ascorbic Acid (Vitamin C), 1 TAB PO QAM Aspirin (Aspirin), 81 MG PO QAM Cephalexin Monohydrate (Keflex), 500 MG PO TID Docusate Sodium (Docusate Sodium), 100 MG PO QPM Famotidine (Famotidine), 20 MG PO QAM Levothyroxine Sodium (Levothyroxine Sodium), 25 MCG PO QAM Metoprolol Succinate (Toprol Xl), 100 MG PO QAM Multivitamin (Multivitamin), 1 TAB PO QAM Nitrofurantoin Monohyd Macrocr (Macrobid), 100 MG PO BID Nitroglycerin (Nitrostat), 0.4 MG UT PRN Potassium Chloride (Potassium Chloride Er), 10 MEQ BID Pravastatin Sodium (Pravastatin Sodium), 40 MG HS Ramipril (Ramipril), 5 MG PO QAM Tamsulosin HCl (Tamsulosin HCl), 0.4 MG PO HS Warfarin Sod (Coumadin), 5 MG PO DAILY@16 Current Inpatient Medications Current Inpatient Medications Medications (Trade) Dose Ordered Sig/Deion Route Start Time Stop Time Status Last Admin Dose Admin Amiodarone HCl (Cordarone Tab) 200 mg QAM PO 07/29/17 09:00 08/28/17 08:59 07/29/17 08:16 200 MG Ascorbic Acid (Vitamin C Tab) 500 mg QAM PO 07/29/17 09:00 08/28/17 08:59 07/29/17 08:18 500 MG Aspirin (Ecotrin Tab) 81 mg QAM PO 07/29/17 09:00 08/28/17 08:59 07/29/17 08:16 81 MG Docusate Sodium (coLACE CAP) 100 mg QPM PO 07/29/17 21:00 08/28/17 20:59 Famotidine (Pepcid Tab) 20 mg QAM PO 07/29/17 09:00 08/28/17 08:59 07/29/17 08:18 20 MG Levothyroxine Sodium (Synthroid Tab) 25 mcg DAILYBB PO 07/29/17 06:30 08/28/17 06:59 07/29/17 04:32 25 MCG Pravastatin Sodium (Pravachol Tab) 40 mg HS PO 07/29/17 21:00 08/28/17 20:59 07/29/17 20:42 40 MG Warfarin Sodium (Coumadin Tab) 5 mg DAILY@16 PO 07/29/17 16:00 08/28/17 15:59 07/29/17 16:36 5 MG Acetaminophen (Tylenol Tab) 650 mg Q4H PRN PO 07/28/17 22:00 08/27/17 21:59 07/29/17 15:13 650 MG Al Hydrox/Mg Hydrox/Simethicone (Maalox Max Susp) 15 ml Q4H PRN PO 07/28/17 22:00 08/27/17 21:59 Magnesium Hydroxide (Milk Of Magnesia Susp) 30 ml Q6H PRN PO 07/28/17 22:00 08/27/17 21:59 Polyethylene (Miralax Powder Packet) 17 gm DAILY PRN PO 07/28/17 22:00 08/27/17 21:59 Ondansetron HCl (Zofran Inj) 4 mg Q6H PRN IV 07/28/17 22:00 08/27/17 21:59 Miscellaneous (Iv Fluids Completed) 1 ea PRN PRN N/A 07/29/17 02:30 07/29/18 02:29 Albuterol/ Ipratropium (Duoneb) 3 ml QIDR INH 07/29/17 08:00 08/28/17 07:59 07/29/17 16:25 3 ML Piperacillin Sod/ Tazobactam Sod 3.375 gm/Dextrose 115 ml @ 28.75 mls/ hr Q8H IV 07/29/17 22:00 08/08/17 21:59 Miscellaneous Information (Consult) 1 ea UD PRN N/A 07/29/17 16:00 08/28/17 15:59 Miscellaneous Information (Consult) 1 ea UD PRN N/A 07/29/17 16:00 08/28/17 15:59 Vancomycin HCl 1500 mg/Sodium Chloride 530 ml @ 200 mls/hr Q12H IV 07/30/17 02:00 08/09/17 01:59 Dopamine HCl/ Dextrose 0 ml @ 0 mls/hr Q0M PRN IV 07/29/17 20:23 08/28/17 20:22 Review of Systems 12 systems reviewed and negative other than previously mentioned in the HPI. Physical Exam Date Time Temp Pulse Resp B/P (MAP) Pulse Ox O2 Delivery O2 Flow Rate FiO2 07/29/17 20:00 92 Nasal Cannula 5.0 07/29/17 20:00 37.8 07/29/17 19:11 37.5 74 20 76/44 (55) 97 Nasal Cannula 5.0 07/29/17 16:25 77 18 90 Nasal Cannula 5.0 07/29/17 16:17 37.8 07/29/17 16:00 94 Nasal Cannula 5.0 07/29/17 14:46 38.2 86 20 114/63 (80) 94 Nasal Cannula 5.0 1/30/18 12:00 Nasal Cannula 5.0 07/29/17 11:58 37.3 89 15 98/57 (71) 95 Nasal Cannula 07/29/17 11:17 77 18 90 Nasal Cannula 5.0 07/29/17 09:22 91 Nasal Cannula 5.0 07/29/17 08:00 Nasal Cannula 5.0 07/29/17 08:00 37.4 90 16 100/59 (73) 91 Nasal Cannula 5.0 07/29/17 07:28 89 18 91 Nasal Cannula 5.0 07/29/17 04:00 37.2 85 17 137/74 (95) 92 Nasal Cannula 4.0 07/29/17 04:00 92 Nasal Cannula 4.0 07/29/17 00:30 36.8 75 17 107/65 Nasal Cannula 3.0 07/28/17 23:58 72 20 108/63 93 07/28/17 22:13 74 22 113/61 98 Nasal Cannula 2.0 Vital Signs - as noted Laboratory Data - as noted Physical Exam: General - NAD, resting in bed with nasal cannula in place Eyes - PERRL, EOMI No icterus, gaze conjugate ENT - Mucosa dry, no lesions or candidiasis Neck - Supple, trachea midline, no masses or lymphadenopathy, no JVD or bruits Lungs - No paradoxical chest wall movement, coarse and auscultation bilaterally , no wheezes, rales, or rhonchi Heart - Reg rate and rhythm, Systolic murmur, No rubs, clicks, or gallops appreciated Abdomen - BS present, no bruits noted, tympanic to percussion, soft, nontender, nondistended, no organomegaly Extremities - No edema, pedal pulses intact Skin: Known ulcers x 3 on left buttocks, dressing intact clean and dry. Neuro - A&OX3 Strength extremities equal and appropriate bilaterally Reflexes: normal and equal CN:PERRL, EOMI, no facial asymmetry, uvula/tongue midline Laboratory Results Last 24 Hours Test 07/28/17 22:12 07/29/17 05:15 07/29/17 05:45 07/29/17 17:28 Venous Blood pH 7.28 Venous Blood Partial Pressure CO2 70 mmHg Venous Blood Partial Pressure O2 30 mmHg Venous Blood HCO3 32 mmol/L Venous Blood Oxygen Saturation < 60.0 % Venous Blood Base Excess 4.0 mEq/L Sodium Level 135 mmol/L 135 mmol/L 134 mmol/L Potassium Level 4.4 mmol/L 4.2 mmol/L 4.2 mmol/L Chloride Level 98 mmol/L 98 mmol/L 98 mmol/L Carbon Dioxide Level 30 mmol/L 32 mmol/L 30 mmol/L Anion Gap 6.0 mmol/L 5.0 mmol/L 6.0 mmol/L Blood Urea Nitrogen 16 mg/dl 15 mg/dl 17 mg/dl Creatinine 1.02 mg/dl 1.06 mg/dl 1.44 mg/dl Estimated GFR () 81.8 78.1 53.9 Estimated GFR (Non- 70.6 67.4 46.5 BUN/Creatinine Ratio 15.5 14.0 11.5 Random Glucose 101 mg/dl 89 mg/dl 121 mg/dl Calcium Level 8.3 mg/dl 8.3 mg/dl 7.9 mg/dl White Blood Count 8.79 K/uL Red Blood Count 3.88 M/uL Hemoglobin 10.5 g/dL Hematocrit 34.8 % Mean Corpuscular Volume 89.7 fL Mean Corpuscular Hemoglobin 27.1 pg Mean Corpuscular Hemoglobin Concent 30.2 g/dl RDW Standard Deviation 53.7 fL RDW Coefficient of Variation 16.5 % Platelet Count 181 K/uL Mean Platelet Volume 12.1 fL Est Creatinine Clear Calc Drug Dose 70.1 ml/min 51.6 ml/min Magnesium Level 2.0 mg/dl Influenza Type A Antigen Neg for Influ A Influenza Type B Antigen Neg for Influ B Diagnostic Results SINGLE VIEW CHEST CLINICAL HISTORY: Central venous catheter placement. FINDINGS: An AP, portable, upright chest radiograph is compared to study performed earlier the same day 07/29/2017. The examination is degraded by portable technique and patient rotation. A right internal jugular central venous catheter has been placed. The tip of the catheter projects over the SVC. A 2-lead cardiac AICD is unchanged in position and partially obscures the left upper chest. The patient is status post midline sternotomy and aortic valve surgery. The heart is markedly enlarged and there is atherosclerotic calcification of the thoracic aorta. There is pulmonary vascular congestion and interstitial edema. There are layering pleural effusions with bibasilar consolidation. No pneumothorax is seen. The skeletal structures are osteopenic. The bony thorax is grossly intact. IMPRESSION: 1. A right internal jugular central venous catheter has been placed. No pneumothorax is seen post procedure. 2. Cardiomegaly and AICD. There is evidence of congestive failure and interstitial edema. 3. Small pleural effusions with bibasilar consolidation. Electronically signed by: Corwin Jimenez M.D. 07/29/2017 9:57 PM Dictated Date/Time: 07/29/2017 9:55 PM CHEST ONE VIEW PORTABLE HISTORY: hypoxia COMPARISON: Chest 07/28/2017. FINDINGS: Progressive interstitial and vascular thickening consistent with pulmonary edema. The heart remains enlarged. Postoperative changes and an aortic valve prosthesis are again noted. Left-sided pacemaker/defibrillator. Small bilateral pleural effusions have progressed. Left basilar linear densities favor subsegmental atelectasis. This is not significantly changed. Surgical clips within the right axilla. IMPRESSION: Progression of the mild to moderate pulmonary edema and small bilateral pleural effusions. Electronically signed by: uHgh Freeman M.D. 07/29/2017 2:53 PM Dictated Date/Time: 07/29/2017 2:52 PM ___ CHEST ONE VIEW PORTABLE CLINICAL HISTORY: fever COUGH COMPARISON STUDY: 06/26/2017 FINDINGS: The heart is markedly enlarged. There are postsurgical changes of a midline sternotomy. There is a left subclavian pacer/defibrillator present. There are increased interstitial markings within the left lung. There is a suspected small left pleural effusion. Diagnostic considerations include asymmetric pulmonary edema versus interstitial left lung infectious/inflammatory process.[ IMPRESSION: 1. Cardiomegaly and suspected left pleural effusion 2. Increased left lung interstitial markings. Diagnostic considerations include asymmetric pulmonary edema versus an interstitial left lung infectious/inflammatory process Electronically signed by: Hernando Du M.D. 07/28/2017 9:13 PM Dictated Date/Time: 07/28/2017 9:12 PM Assessment & Plan (1) Hypotension (2) Pleural effusion (3) Hypoxia (4) Acute respiratory failure with hypoxia and hypercapnia (5) Hyperkalemia Reason Critically Ill: Patient is an 77-year-old male who is transferred to the ICU for increased oxygen demands and hypotension. PLAN: CV: * R IJ placed for central drug administration: Changed Dopamine to Dobutamine 2/ 2 tachycardia in the 115-120s * GOAL MAP >65 * Arterial line in place: not correlating to peripheral cuff * Recent ECHO: * Bedside Ultrasound did demonstrate fluid overload like secondary to known HF * Holding home Metoprolol now * Continue home Amiodarone, ASA, Coumadin Neuro: * Currently Alert and Oriented * Monitor for changes * Pt denies pain or discomfort Resp: * ABG in ICU: * 7.33/55/64/29 89% on 5L * Begin BiPap now * Pt denies shortness of breath * CXR demonstrates fluid overload as does bedside ultrasound * Repeat CXR in AM * Hold diuresis currently 2/2 hypotension Fluids/Renal: * Pt received 500cc bolus with minimal response for hypotension * Pt oral intake when off bipap * Holding IV fluids at this time secondary to fluid overload * Dobutamine infusing to increase urinary profusion * Sandoval (Chronic) in place * UOP increasing with vasopressor support * Strict I&Os ID: * Abx: Zosyn and Vanco * MRSA Nasal Swab Positive * Afebrile: Peak Temp 38.2 * Without Leukocytosis * Check Procalcitonin and Repeat Lactic in the AM * UTI known; Culture re-incubated for pin point growth * Known Ulcers on left buttocks: wound consult placed and following. Dressing dry and intact GI/Nutrition: * Sips and Chips overnight * Diet ordered, Ok if mental status remains stable * Continue home PPI Heme: * H&H Stable * Monitor daily * No signs of gross bleeding * DVT Prophylaxis: Continue Home Coumadin Goal 2-3 per outpt records Endocrine: * TSH pending in AM labs * Accu-Checks per protocol, started insulin infusion for 2 blood sugars greater than 180 CCT: 60 Minutes; This time is exclusive of all separately billable procedures. Thank you for involving us in the care of this patient. Please refer to Dr. Tyler Persaud's addendum for further recommendations. I have personally evaluated and examined this patient. I agree with assessment and plan of Krystina Abdalla PA-C. During my evaluation we discussed the patient's CODE STATUS. He is willing to undergo a trial of intubation as well as a trial of dialysis evidently does not want to be resuscitated in event of cardiac arrest nor would he wanted to be hooked up to machines for the rest of his life. He was alert and oriented and certainly had competency to make his own decisions during my evaluation. Patient exhibited signs of infection, source is not entirely clear if he could be a sacral decubiti, he also has an indwelling Sandoval secondary to need for hygiene given his decubitus ulcer. His urine output has worsened. We have added dobutamine to increase the patient's blood pressure was hypotensive and that will hopefully increase renal perfusion. We have also given the patient additional Lasix. He is certainly at risk for further decompensation as well as requiring intubation should he moved towards volume overload or inability to manage and metabolic acidosis. I have personally spent 20 minutes of critical care time in the direct management of this patient. This is a life/limb threatening event. This includes time spent evaluating patient, direct bedside care, chart review, placing orders, interpretation of diagnostic studies, discussion with consultants, patient, and/or family members regarding treatment decisions, as well as other required patient management activities. This time is exclusive of all separately billable procedures, and teaching time and separate from and in addition to any other critical care service time.
--- NOTE | 2017-07-29 21:59 | Procedure Note ---
Procedure Note Procedure Date Jul 29, 2017. Central Line Procedure time out: side/site verified, patient ID confirmed, sterile procedure used Consent obtained: written (Obtained by Dr. Tyler Persaud) Time of procedure: 21:55 Performed by: physician silversmith apprentice Indications: central drug admin. Prep: chlorhexadine prep, sterile drape, sterile procedures used Anesthesia: lidocaine 1% without epi Volume anesthetic (ml's): 5 Central line lumen: triple Central line location: internal jugular (R) Additional details: percutaneous placement, ultrasound guidance, Selinger technique used, line sutured, good blood return CXR: appropriate position, no pneumothorax Complications: none Patient tolerated procedure: well Post-procedure vital signs: reviewed and stable Comments: Critical Care Medicine Point of Care Bedside Ultrasound Procedure: Procedural Ultrasound Procedure Date: 07/29/2016 Indication: Hypotension Attending: Henrietta Persaud DO Resident/Physician Data Governance Analyst: Magda García PA-C If for central venous access Artery AND Vein visualized: Y Compressible Vein: Y Guidewire or Short Catheter seen in vein prior to dilation: Y Line confirmed in Vein with ultrasound: Y CXR been ordered: Y Impression: Hypotension Plan: May use line, Begin dopamine infusion to GOAL MAP > 65 Images obtained are saved for permanent record
[2017-07-29] MEDS: PIPERACILL/TAZOBAC IV 3.375 GM in DEXTROSE 5% 100ML 100 ML IV SCH (22:13)
--- NOTE | 2017-07-29 23:06 | Procedure Note ---
Procedure Note Procedure Date Jul 29, 2017. Procedure Description Procedure Name: Left Radial Arterial Catheterization Procedure time out: side/site verified, patient ID confirmed, correct procedure Consent obtained: written (Consent obtained by Dr. Tyler Persaud) Time of procedure: 22:30 Performed by: physician product safety technical assistant Indications: diagnostic Contraindications: none Description: Using sterile technique; the left radial artery was cleaned with a chloro- hexadine scrub after adequate palpation and visualization with the ultrasound, a finder needle with overlaying catheter was then used with approach at a 45* angle until a flash was obtained with direct visualization on ultrasound. Using Seldinger technique, there was initially no difficulty passing the guide wire, on the first attempt the guide wire was then passed successfully into the artery and the catheter was threaded over the guide wire; which was then removed intact. Arterial blood was seen pulsating from catheter tip and a luer lock valve was attached to the catheter. The A-line catheter was then secured via stat lock and covered with a sterile surgical dressing. Pt was reassessed and no evidence of hematoma was appreciated. The tubing was placed between the first and second fingers and taped to the forearm, before a wrist support was placed. Pt tolerated the procedure well with no complications. Consent was obtained by Dr. Tyler Persaud Complications: none Patient tolerated procedure: well Post-procedure vital signs: reviewed and stable
[2017-07-30] VITALS (104 sets, daily range): BP systolic 38–160; BP diastolic 28–89; PULSE 83–103; TEMP 36.9–38.6; O2SAT 88–100
[2017-07-30] MEDS ORDERED: DOBUTamine 500MG / 250ML D5W ONE (00:19)
[2017-07-30] MEDS: DOBUTamine / D5W 500 MG IV PRN ×3 (00:31→17:56)
[2017-07-30] MEDS ORDERED: VANCOMYCIN INJ 1,500 MG in SODIUM CHLORIDE 0.9% 500ML 500 ML IV SCH (02:00)
[2017-07-30] MEDS: ACETAMINOPHEN 325 MG TAB PO PRN (03:11)
[2017-07-30] MEDS: NOREPINEPHRINE BIT INJ 8 MG in DEXTROSE 5% 500ML 500 ML IV PRN ×2 (05:19→17:55)
[2017-07-30 05:29] LABS: HEMATOCRIT 30.1 % (42-52); MEAN CELL VOLUME 89.6 fL (80-100); MEAN CORPUSCULAR HEMOGLOBIN 26.8 pg (25-34); MEAN CORPUSCULAR HGB CONC 29.9 g/dl (32-36); MEAN PLATELET VOLUME 9.7 fL (7.4-10.4); PLATELET COUNT 179 K/uL (130-400); RED CELL DISTRIBUTION WIDTH CV 16.5 % (11.5-14.5); RED CELL DISTRIBUTION WIDTH SD 54.2 fL (36.4-46.3); WHITE BLOOD COUNT 9.22 K/uL (4.8-10.8)
[2017-07-30] MEDS: PIPERACILL/TAZOBAC IV 3.375 GM in DEXTROSE 5% 100ML 100 ML IV SCH ×3 (05:32→21:27)
[2017-07-30] MEDS: LEVOTHYROXINE 25 MCG TAB PO SCH ×2 (05:32→05:37)
[2017-07-30 05:42] LABS: INR 3.5 (0.9-1.1)
[2017-07-30 05:57] LABS: ALBUMIN 2.2 gm/dl (3.4-5.0); CALCIUM 7.1 mg/dl (8.5-10.1); CREATININE 1.85 mg/dl (0.60-1.40); POTASSIUM 4.2 mmol/L (3.5-5.1)
[2017-07-30 06:09] LABS: PHOSPHORUS 4.2 mg/dl (2.5-4.9)
[2017-07-30] MEDS ORDERED: SODIUM BICARB 8.4% INJ 50 MEQ/50 ML SYR IV STA (06:19)
[2017-07-30] MEDS ORDERED: RAPID SEQUENCE INDUCTION BAG ONE (06:21)
[2017-07-30] MEDS ORDERED: SODIUM BICARB 8.4% INJ 50 MEQ/50 ML SYR IV ONE (06:22)
[2017-07-30] MEDS ORDERED: FUROSEMIDE 40 MG/4 ML VIAL ONE ×2 (06:45)
[2017-07-30] MEDS ORDERED: NURSING VERBAL MED ORDER STA (06:48)
--- NOTE | 2017-07-30 07:19 | DIAGNOSTIC IMAGING REPORT ---
CHEST ONE VIEW PORTABLE CLINICAL HISTORY: 77 years-old Male presenting with S/P INTUBATION. TECHNIQUE: Portable upright AP view of the chest was obtained. COMPARISON: 07/29/2017. FINDINGS: Endotracheal tube terminates at the origin of the left mainstem bronchus within 1 cm of the holly. Right internal jugular central venous catheter terminates in the mid SVC. Clips again project over the right axilla. Numerous external leads degrade image quality. Left subclavian implanted cardiac defibrillator with leads to the right atrium and right ventricular apex. Median sternotomy wires and prosthetic aortic valve again noted. Atherosclerosis of aortic arch. Cardiac silhouette remains moderately enlarged. Persistent right basilar opacity and left mid to lower lung opacity. Multifocal patchy opacities also noted elsewhere. Possible herniation of left lung given the projection of aerated lung beyond the costal margin. Moderate left pleural effusion. Trace right pleural effusion. No large pneumothorax. Degenerative changes of the glenohumeral joints. Upper abdomen normal. IMPRESSION: 1. Endotracheal tube at the origin of the left mainstem bronchus. Retraction recommended. 2. Appropriately positioned right internal jugular central venous catheter. 3. Cardiomegaly. 4. Patchy mid to basilar predominant bilateral pulmonary opacities. This could represent pulmonary edema. Infection cannot be excluded. 5. Moderate left and trace right pleural effusions not significantly changed. No pneumothorax. The report will be called/faxed according to standard departmental protocol. Electronically signed by: Oj Ham M.D. 07/30/2017 7:18 AM Dictated Date/Time: 07/30/2017 7:14 AM
--- NOTE | 2017-07-30 07:54 | Procedure Note ---
Procedure Note Procedure Date Jul 30, 2017. Procedure Description Procedure Name: Endotracheal Intubation Procedure time out: side/site verified, patient ID confirmed, correct procedure Consent obtained: written Time of procedure: 06:30 Performed by: attending, physician job setter Indications: therapeutic Contraindications: none Description: Procedure Date: 07/30/2017 Procedure: Endotracheal intubation Pre-procedure Diagnosis: Acute Respiratory Failure Post-procedure Diagnosis: same as above Prior to Procedure: Informed Consent: written Attending Staff: Dr. Tyler Persaud Indications: Respiratory failure PA O2 71 on 100% via BiPap with 60%, Acute Respiratory Acidosis 7.19/76, and Fluid overload The identity of the patient was confirmed and a bedside time out was performed. Description of Procedure: Patient was evaluated and required intubation for respiratory failure. The patient was prepared in the usual fashion. A laryngoscope Mac 3 was used. A 8.0 Fr endotrachial tube was placed under direct laryngoscopy with a grade 1 view. The endotracheal tube was noted to pass through the vocal cords but then met resistance. Dr. Persaud took over to find the ET Tube was in place and advanced to 24cm at the teeth. Chest rise was bilaterally. Bilateral breath sounds were heard without air sounds in the abdomen. Condensation was noted in the endotracheal tube. End-tidal CO2 measurement was positive. Chest x-ray shows proper endotracheal tube placement. Dr. Persaud requested that the tube be withdrawn 2cm. Respiratory completed this task. Complications: Failed intubation attempt Findings: not applicable Specimens: not applicable Estimated blood loss: Zero Complications: other (failed intubation) Patient tolerated procedure: well Post-procedure vital signs: reviewed and stable
[2017-07-30] MEDS ORDERED: SODIUM CHLORIDE 0.9% IV SCH (08:00)
[2017-07-30] MEDS ORDERED: CEFTRIAXONE SOD IV SCH (08:00)
[2017-07-30] MEDS ORDERED: FENTANYL CITRATE INJ 50 MCG/1 ML 2 ML VIAL IV PRN (08:45)
[2017-07-30] MEDS ORDERED: MIDAZOLAM HCL 1 MG/ML 2ML VIAL IV PRN (08:45)
[2017-07-30] MEDS ORDERED: MAG SULFATE IV ONE (09:00)
[2017-07-30] MEDS ORDERED: DEXTROSE 5% IV ONE (09:00)
[2017-07-30] MEDS: MAGNESIUM SULFATE 1GM / D5W 1 GM in PREMIXED IN D5W 100 ML IV SCH ×2 (09:12→10:18)
[2017-07-30] MEDS: ASPIRIN 81 MG ECTAB PO SCH (09:12)
[2017-07-30] MEDS: AMIODARONE 200 MG TAB PO SCH (09:13)
[2017-07-30] MEDS: ASCORBIC ACID 500 MG TAB PO SCH (09:13)
[2017-07-30] MEDS: FAMOTIDINE 20 MG TAB PO SCH (09:13)
--- NOTE | 2017-07-30 09:28 | DIAGNOSTIC IMAGING REPORT ---
KUB CLINICAL HISTORY: verify OGT placement COMPARISON STUDY: CT of the abdomen and pelvis February 03, 2017. FINDINGS: The tip of the nasogastric tube projects over the gastric fundus. The bowel gas pattern is normal. Left hip arthroplasty is noted. Pacer leads are partially imaged. Left basilar opacity with a suspected left pleural effusion is again noted. IMPRESSION: Tip of nasogastric tube projects over the gastric fundus. Electronically signed by: Man Das M.D. 07/30/2017 9:27 AM Dictated Date/Time: 07/30/2017 9:24 AM
[2017-07-30] MEDS: ALBUT/IPRATROP 3MG/0.5MG NEB 3 ML VIAL INH SCH ×2 (09:39→18:02)
--- NOTE | 2017-07-30 10:42 | Medical Consult ---
Consultation Date of Consultation: Jul 30, 2017. Attending Physician: Luis Thomas M.D. Reason for Consultation: Abnormal urinalysis, decubitus, weakness, increased O2 needs History of Present Illness 77-year-old male with multiple medical comorbidities including coronary artery disease, aortic valve replacement, hypertension, chronic kidney disease, COPD, who is status post left hip fracture in May, undergoing left hip arthroplasty. Was at rehab recently, but over last few days noted to have increasing hypoxia and weakness. He was admitted to the hospital and found to have evidence of fluid overload, along with abnormal urinalysis and left gluteal ulceration, with prior cultures from that wound growing methicillin sensitive Staph aureus. He has progressively worsened and now has been intubated for respiratory failure. Currently being treated with vancomycin and Zosyn. Cultures are pending. Past Medical/Surgical History Medical Problems: (1) Abdom Aortic Aneurysm Status: Chronic (2) Acute respiratory failure with hypoxia and hypercapnia Status: Acute (3) Aortic dissection, thoracic Status: Chronic (4) CAD (coronary artery disease) Status: Chronic (5) Chronic Kidney Disease, Unspecified Status: Chronic (6) Chronic Obstructive Pulmonary Disease W (Acute) Exacerbation Status: Chronic (7) Closed left hip fracture Status: Acute (8) Complication of catheter Status: Acute (9) HTN (hypertension) Status: Chronic (10) Hyperlipidemia, Unspecified Status: Chronic (11) Hypertrophy (Benign) Of Prostate W/O Urinary Obst & Oth Luts Status: Chronic (12) Hypothyroidism, Unspecified Status: Chronic (13) Hypoxia Status: Acute (14) Pleural effusion Status: Acute (15) 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 (16) Urinary retention Status: Acute Surgical Problems: (1) 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 (2) Aortocoronary Bypass Status: Chronic (3) 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 Medical Problems: (1) Abdom Aortic Aneurysm (2) Aortic dissection, thoracic (3) Beta-hemolytic group B streptococcal sepsis (4) CAD (coronary artery disease) (5) Chronic Kidney Disease, Unspecified (6) Chronic Obstructive Pulmonary Disease W (Acute) Exacerbation (7) Fever (8) Gram positive septicemia (9) H/O thrombosis (10) H/O: pneumonia (11) HTN (hypertension) (12) Hyperkalemia (13) Hyperlipidemia, Unspecified (14) Hypertrophy (Benign) Of Prostate W/O Urinary Obst & Oth Luts (15) Hypotension (16) Hypothyroidism, Unspecified (17) Lower extremity weakness (18) Lumbar back pain (19) Presence of combination internal cardiac defibrillator (ICD) and pacemaker (20) Transverse myelitis Surgical Problems: (1) aortic valve replacement with cadaver valve (2) Aortocoronary Bypass (3) H/O aortic valve replacement with porcine valve (4) History of aortic valve replacement with metallic valve Family History Patient reports no known family medical history. Social History Smoking Status: Former Smoker Drug Use: none Marital Status: Housing Status: lives with family Occupation Status: retired Allergies Coded Allergies: Adhesives (Verified Allergy, Unknown, removed skin, 06/24/17) Current Inpatient Medications Current Inpatient Medications Medications (Trade) Dose Ordered Sig/Deion Route Start Time Stop Time Status Last Admin Dose Admin Amiodarone HCl (Cordarone Tab) 200 mg QAM PO 07/29/17 09:00 08/28/17 08:59 07/30/17 09:13 200 MG Ascorbic Acid (Vitamin C Tab) 500 mg QAM PO 07/29/17 09:00 08/28/17 08:59 07/30/17 09:13 500 MG Docusate Sodium (coLACE CAP) 100 mg QPM PO 07/29/17 21:00 08/28/17 20:59 07/29/17 22:13 100 MG Levothyroxine Sodium (Synthroid Tab) 25 mcg DAILYBB PO 07/29/17 06:30 08/28/17 06:59 07/29/17 04:32 25 MCG Pravastatin Sodium (Pravachol Tab) 40 mg HS PO 07/29/17 21:00 08/28/17 20:59 07/29/17 20:42 40 MG Warfarin Sodium (Coumadin Tab) 5 mg DAILY@16 PO 07/29/17 16:00 08/28/17 15:59 Future Hold 07/29/17 16:36 5 MG Acetaminophen (Tylenol Tab) 650 mg Q4H PRN PO 07/28/17 22:00 08/27/17 21:59 07/30/17 03:11 650 MG Al Hydrox/Mg Hydrox/Simethicone (Maalox Max Susp) 15 ml Q4H PRN PO 07/28/17 22:00 08/27/17 21:59 Magnesium Hydroxide (Milk Of Magnesia Susp) 30 ml Q6H PRN PO 07/28/17 22:00 08/27/17 21:59 Polyethylene (Miralax Powder Packet) 17 gm DAILY PRN PO 07/28/17 22:00 08/27/17 21:59 Ondansetron HCl (Zofran Inj) 4 mg Q6H PRN IV 07/28/17 22:00 08/27/17 21:59 Miscellaneous (Iv Fluids Completed) 1 ea PRN PRN N/A 07/29/17 02:30 07/29/18 02:29 Albuterol/ Ipratropium (Duoneb) 3 ml QIDR INH 07/29/17 08:00 08/28/17 07:59 07/29/17 16:25 3 ML Piperacillin Sod/ Tazobactam Sod 3.375 gm/Dextrose 115 ml @ 28.75 mls/ hr Q8H IV 07/29/17 22:00 08/08/17 21:59 07/30/17 05:32 28.75 MLS/HR Miscellaneous Information (Consult) 1 ea UD PRN N/A 07/29/17 16:00 08/28/17 15:59 Miscellaneous Information (Consult) 1 ea UD PRN N/A 07/29/17 16:00 08/28/17 15:59 Vancomycin HCl 1500 mg/Sodium Chloride 530 ml @ 200 mls/hr Q12H IV 07/30/17 02:00 08/09/17 01:59 07/30/17 01:17 200 MLS/HR Dopamine HCl/ Dextrose 0 ml @ 0 mls/hr Q0M PRN IV 07/29/17 20:23 08/28/17 20:22 Dobutamine HCl 0 ml @ 0 mls/hr Q0M PRN IV 07/30/17 00:08 08/29/17 00:07 07/30/17 10:04 30.7 MLS/HR Norepinephrine Bitartrate 8 mg/ Dextrose 508 ml @ 0 mls/hr Q0M PRN IV 07/30/17 05:05 08/29/17 05:04 07/30/17 05:19 34.5 MLS/HR Midazolam HCl (Versed Inj) 2 mg Q2H PRN IV 07/30/17 08:45 08/29/17 08:44 Fentanyl Citrate (Fentanyl Inj) 100 mcg Q2H PRN IV 07/30/17 08:45 08/13/17 08:44 Vasopressin 50 units/Sodium Chloride 502.5 ml @ 24 mls/hr [id number] IV 07/30/17 08:45 08/29/17 08:44 Magnesium Sulfate 1 gm/Prmx 100 ml @ 100 mls/hr Q1H IV 07/30/17 09:00 07/30/17 10:59 07/30/17 10:18 100 MLS/HR Pantoprazole Sodium 40 mg/ Syringe 10 ml @ 5 mls/min DAILY@11 IV 07/30/17 11:00 08/29/17 10:59 Aspirin (Aspirin Chew) 81 mg QAM PO 07/31/17 09:00 08/30/17 08:59 Review of Systems Not obtainable as patient sedated on ventilator Physical Exam Date Time Temp Pulse Resp B/P (MAP) Pulse Ox O2 Delivery O2 Flow Rate FiO2 07/30/17 09:15 60 07/30/17 08:15 86 127/67 (87) 97 07/30/17 08:06 87 145/80 (101) 100 07/30/17 08:01 87 143/76 (98) 100 07/30/17 08:00 36.9 88 20 143/76 (98) 100 Mechanical Ventilator 100 07/30/17 07:45 87 131/70 (90) 100 07/30/17 07:35 83 152/66 (94) 100 07/30/17 07:30 84 122/63 (82) 100 07/30/17 07:15 100 07/30/17 07:15 89 76/47 (57) 98 07/30/17 07:01 90 38/28 (31) 94 07/30/17 07:01 90 20 69/28 (32) 94 07/30/17 07:00 88 39/30 (33) 89 07/30/17 06:42 84 20 89/39 (54) 96 07/30/17 06:30 88 19 94/41 (60) 90 07/30/17 06:16 87 17 83/36 (37) 93 07/30/17 06:00 88 24 83/36 (54) 93 07/30/17 05:45 84 24 75/34 (40) 91 07/30/17 05:30 91 21 84/37 (57) 90 07/30/17 05:20 88 90 60 07/30/17 05:05 103 22 71/43 (52) 88 07/30/17 05:01 103 18 60/38 (44) 88 07/30/17 04:30 100 16 69/34 (49) 89 07/30/17 04:15 36.9 07/30/17 04:01 95 19 84/35 (39) 95 07/30/17 04:00 92 Oxymask 6.0 07/30/17 03:31 94 20 84/34 (53) 96 07/30/17 03:10 38.6 07/30/17 03:01 93 22 79/38 (47) 98 07/30/17 02:32 93 22 79/42 (43) 100 07/30/17 02:31 94 19 68/52 (45) 99 07/30/17 02:01 90 24 90/42 (59) 97 07/30/17 01:46 90 97 50 07/30/17 01:31 87 24 101/47 (56) 91 07/30/17 01:00 91 26 91/41 (47) 93 07/30/17 00:30 99 22 88/43 (54) 92 07/30/17 00:06 95 20 79/40 (55) 90 07/30/17 00:01 37.5 07/30/17 00:00 96 22 80/39 (53) 90 07/29/17 23:59 94 BiPAP 50 07/29/17 23:30 111 16 96/50 (54) 94 07/29/17 23:10 107 93 50 07/29/17 23:00 99 16 97/55 (67) 94 07/29/17 22:50 96 15 106/50 (64) 94 07/29/17 22:46 98 18 95/55 (56) 91 07/29/17 22:15 94 20 103/56 (73) 90 07/29/17 22:01 93 20 100/51 (75) 89 07/29/17 21:46 94 16 97/51 (62) 90 07/29/17 21:31 93 17 99/50 (76) 98 07/29/17 21:15 90 18 94/50 (72) 100 07/29/17 20:55 84 20 99/49 (56) 100 07/29/17 20:22 73 19 89/43 (52) 94 07/29/17 20:16 74 17 101/42 (55) 95 07/29/17 20:01 75 20 90/40 (55) 93 07/29/17 20:00 92 Nasal Cannula 5.0 07/29/17 20:00 37.8 07/29/17 19:11 37.5 74 20 76/44 (55) 97 Nasal Cannula 5.0 07/29/17 16:25 77 18 90 Nasal Cannula 5.0 07/29/17 16:17 37.8 07/29/17 16:00 94 Nasal Cannula 5.0 07/29/17 14:46 38.2 86 20 114/63 (80) 94 Nasal Cannula 5.0 07/29/17 12:00 Nasal Cannula 5.0 07/29/17 11:58 37.3 89 15 98/57 (71) 95 Nasal Cannula 07/29/17 11:17 77 18 90 Nasal Cannula 5.0 General Appearance: WD/WN, + pertinent finding Head: normocephalic, atraumatic Eyes: normal inspection, EOMI, sclerae normal ENT: normal ENT inspection, pharynx normal, + pertinent finding (Endotracheal tube in place) Neck: supple, no adenopathy, thyroid normal, trachea midline Respiratory/Chest: chest non-tender, no respiratory distress, no accessory muscle use, + rales Cardiovascular: regular rate, rhythm, no gallop, + systolic murmur Abdomen/GI: normal bowel sounds, non tender, soft, no organomegaly Back: normal inspection, no CVA tenderness Neurologic/Psych: + motor weakness (legs), + abnormal reflexes (upgoing toes), + pertinent finding (sedated on venti;ator) Skin: normal color, no rash, + pertinent finding (left gluteal ulcer) Lymphatic: no adenopathy Laboratory Results Date/Time Source Procedure Growth Status 07/29/17 19:45 Nasal MRSA DNA Surveillance Screen - Final Specimen Positive for MRSA by DNA Probe Complete Last 24 Hours Test 07/29/17 17:28 07/29/17 22:09 07/29/17 22:55 07/30/17 05:11 Sodium Level 134 mmol/L 133 mmol/L Potassium Level 4.2 mmol/L 4.2 mmol/L Chloride Level 98 mmol/L 99 mmol/L Carbon Dioxide Level 30 mmol/L 30 mmol/L Anion Gap 6.0 mmol/L 4.0 mmol/L Blood Urea Nitrogen 17 mg/dl 22 mg/dl Creatinine 1.44 mg/dl 1.85 mg/dl Est Creatinine Clear Calc Drug Dose 51.6 ml/min 40.2 ml/min Estimated GFR () 53.9 39.8 Estimated GFR (Non- 46.5 34.4 BUN/Creatinine Ratio 11.5 11.9 Random Glucose 121 mg/dl 117 mg/dl Calcium Level 7.9 mg/dl 7.1 mg/dl Bedside Glucose 124 mg/dl Blood Gas Sample Site Art Line Bedside Blood Gas pH (LAB) 7.33 Bedside Blood Gas pCO2 (LAB) 55 mmHg Bedside Blood Gas pO2 (LAB) 64 mmHg Bedside Blood Gas HCO3 (LAB) 29 meq/L Bedside Blood Gas Total CO2 30 mEq/l Bedside Blood Gas Base Excess (LAB) 3.0 meq/L Bedside Blood Gas O2 Saturation 89.0 % Elio Test NA Oxygen Delivery Device Other Bedside FiO2 0 % White Blood Count 9.22 K/uL Red Blood Count 3.36 M/uL Hemoglobin 9.0 g/dL Hematocrit 30.1 % Mean Corpuscular Volume 89.6 fL Mean Corpuscular Hemoglobin 26.8 pg Mean Corpuscular Hemoglobin Concent 29.9 g/dl RDW Standard Deviation 54.2 fL RDW Coefficient of Variation 16.5 % Platelet Count 179 K/uL Mean Platelet Volume 9.7 fL Prothrombin Time 36.2 SECONDS Prothromb Time International Ratio 3.5 Lactic Acid Level 0.7 mmol/L Phosphorus Level 4.2 mg/dl Magnesium Level 1.8 mg/dl Total Bilirubin 0.6 mg/dl Direct Bilirubin 0.2 mg/dl Aspartate Amino Transf (AST/SGOT) 18 U/L Alanine Aminotransferase (ALT/SGPT) 24 U/L Alkaline Phosphatase 63 U/L Total Protein 6.0 gm/dl Albumin 2.2 gm/dl Procalcitonin 0.48 ng/ml Thyroid Stimulating Hormone (TSH) 2.930 uIu/ml Test 1/31/18 05:18 07/30/17 05:27 07/30/17 06:16 07/30/17 09:01 Blood Gas Sample Site Art Line Art Line Art Line Bedside Blood Gas pH (LAB) 7.26 7.19 7.47 Bedside Blood Gas pCO2 (LAB) 64 mmHg 76 mmHg 44 mmHg Bedside Blood Gas pO2 (LAB) 62 mmHg 71 mmHg 142 mmHg Bedside Blood Gas HCO3 (LAB) 29 meq/L 29 meq/L 32 meq/L Bedside Blood Gas Total CO2 31 mEq/l 31 mEq/l 33 mEq/l Bedside Blood Gas Base Excess (LAB) 2.0 meq/L 1.0 meq/L 8.0 meq/L Bedside Blood Gas O2 Saturation 87.0 % 88.0 % 99.0 % Elio Test NA NA NA Oxygen Delivery Device Other BIPAP Ventilator Bedside FiO2 0 % 60 % 100 % Bedside Glucose (other) 122 mg/dl Bedside Oxygen Rate (breaths/min) 12 20 Blood Gas IPAP 15 Blood Gas Minute Ventilation 8.3 Blood Gas Tidal Volume 500 Blood Gas PEEP 10 Test 07/30/17 09:12 07/30/17 09:48 Bedside Lactic Acid Arterial 0.86 mmol/L Lactic Acid Level 1.1 mmol/L Patient Name: KATHY LOREDO Unit Number: [id number] Dictated: 07/30/17713 Transcribed: 07/30/17713 PBS Printed Date/Time: [~ rep prt dt]/[~ rep prt tm] [~ rep ct labl] - [~ rep ct ivnm] [facility] [place] [address] Dictated: 07/30/17713 Transcribed: 07/30/17713 PBS Printed Date/Time: [~ rep prt dt]/[~ rep prt tm] [~ rep ct labl] - [~ rep ct ivnm] [~ rep ct add3]] CHEST ONE VIEW PORTABLE CLINICAL HISTORY: 77 years-old Male presenting with S/P INTUBATION. TECHNIQUE: Portable upright AP view of the chest was obtained. COMPARISON: 07/29/2017. FINDINGS: Endotracheal tube terminates at the origin of the left mainstem bronchus within 1 cm of the holly. Right internal jugular central venous catheter terminates in the mid SVC. Clips again project over the right axilla. Numerous external leads degrade image quality. Left subclavian implanted cardiac defibrillator with leads to the right atrium and right ventricular apex. Median sternotomy wires and prosthetic aortic valve again noted. Atherosclerosis of aortic arch. Cardiac silhouette remains moderately enlarged. Persistent right basilar opacity and left mid to lower lung opacity. Multifocal patchy opacities also noted elsewhere. Possible herniation of left lung given the projection of aerated lung beyond the costal margin. Moderate left pleural effusion. Trace right pleural effusion. No large pneumothorax. Degenerative changes of the glenohumeral joints. Upper abdomen normal. IMPRESSION: 1. Endotracheal tube at the origin of the left mainstem bronchus. Retraction recommended. 2. Appropriately positioned right internal jugular central venous catheter. 3. Cardiomegaly. 4. Patchy mid to basilar predominant bilateral pulmonary opacities. This could represent pulmonary edema. Infection cannot be excluded. 5. Moderate left and trace right pleural effusions not significantly changed. No pneumothorax. The report will be called/faxed according to standard departmental protocol. Electronically signed by: Oj Ham M.D. 07/30/2017 7:18 AM Dictated Date/Time: 07/30/2017 7:14 AM The status of this report is Signed. Draft = Not yet reviewed or approved by Radiologist. Signed = Reviewed and approved by Radiologist. <AttendingPhy>Luis Thomas M.D.</AttendingPhy> <FamilyPhy>Yakov Richardson M.D.</ FamilyPhy> <PrimaryPhy>Edilberto Valiente M.D.</PrimaryPhy> <UnitNumber> [id number]</UnitNumber> <VisitNumber>[id number]</VisitNumber> <PatientName> KATHY LOREDO</PatientName> <DateOfBirth>1940</DateOfBirth> <Location> [facility]</Location> <ServiceDate>07/28/17</ServiceDate> <MNE>ESINDI</MNE> < OrderingPhy>Tyler Persaud D.O.</OrderingPhy> <OrderingPhyMNE>f rep ord dr badillo</OrderingPhyMNE> <DictatingPhyMNE>f rep dict dr badillo</DictatingPhyMNE> < CCListMNE>f rep ct mne</CCListMNE> <AdmittingPhyMNE>f pt admit dr badillo</ AdmittingPhyMNE> <AttendingPhyMNE>f pt attend dr badillo</AttendingPhyMNE> <ConsultingPhyMNE>f pt consult dr badillo</ConsultingPhyMNE> <FamilyPhyMNE>f pt fam dr badillo</FamilyPhyMNE> <OtherPhyMNE>f pt other dr badillo</OtherPhyMNE> < PrimaryPhyMNE>f pt prim care dr badillo</PrimaryPhyMNE> <ReferringPhyMNE>f pt referring dr badillo</ReferringPhyMNE> Assessment & Plan 77-year-old male with multiple medical comorbidities status post recent left hip surgery, now presents with acute respiratory failure requiring intubation, with urinalysis suggestive of infection, as well as gluteal decubitus with positive culture for methicillin sensitive Staph aureus. Given positive MRSA screen, vancomycin appropriate along with Zosyn pending further culture results. Antibiotics will be adjusted once these are available. Will follow.
[2017-07-30] MEDS: VASOPRESSIN INJ 50 UNITS in SODIUM CHLORIDE 0.9% 500ML 500 ML IV SCH (10:49)
[2017-07-30] MEDS: PANTOprazole INJ 40 MG in SYRINGE 0 ML IV SCH (11:00)
--- NOTE | 2017-07-30 12:05 | Clinical Documentation Query ---
CLINICAL DOCUMENTATION QUERY 77 year old male who presents to the Emergency Room with complaints of persistent generalized weakness found to be septic from multiple sources. The EMR stating the patient presented in volume overload and was treated with IV Lasix for CHF. In your clinical opinion is this patient being managed for: ( x ) Acute on chronic systolic CHF ( ) Not Agree ( ) Other explanation of clinical findings (Please Explain) ( ) Unable to determine (Please Define) ( ) Need to Discuss The medical record reflects the following clinical findings, treatment, and risk factors. Clinical Indicators: As above Treatment: As above Risk Factors:Age, CAD, Sepsis, infection, and hx of systolic chf. Please clarify and document your clinical opinion in the progress notes and discharge summary. Terms such as "probable", "suspected", "likely", "questionable", "possible", or "still to be ruled out" are acceptable. IF IN AGREEMENT, YOU MUST DOCUMENT ABOVE DIAGNOSTIC STATEMENT IN DAILY PROGRESS NOTES AND DISCHARGE SUMMARY. This document is not part of the patient's record. Thank You, Geraldo Palumbo, RN [phone]
--- NOTE | 2017-07-30 12:13 | DIAGNOSTIC IMAGING REPORT ---
CT HEAD WITHOUT CONTRAST (CT) CLINICAL HISTORY: encephalopathy COMPARISON STUDY: No previous studies for comparison. TECHNIQUE: Axial CT of the brain is performed from the vertex to the skull base. IV contrast was not administered for this examination. A dose lowering technique was utilized adhering to the principles of ALARA. CT DOSE: 2710.16 mGy.cm FINDINGS: No intra or extra-axial mass lesions are visualized. There is no CT evidence of acute cortical infarction. There is no evidence of midline shift. There is no acute hemorrhage. No calvarial fractures are visualized. There are minor white matter hypodensities likely on a small vessel basis. 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 There is no evidence of pathologic ventricular dilatation. There is no evidence of acute sinusitis IMPRESSION: 1. Old right parietal lobe infarct. 2. No acute intracranial findings. Electronically signed by: Hernando Du M.D. 07/30/2017 12:12 PM Dictated Date/Time: 07/30/2017 12:04 PM
--- NOTE | 2017-07-30 12:21 | DIAGNOSTIC IMAGING REPORT ---
CT SCAN OF THE ABDOMEN AND PELVIS WITHOUT CONTRAST CLINICAL HISTORY: Sepsis. Renal failure. COMPARISON STUDY: 02/03/2017 TECHNIQUE: CT scan of the abdomen and pelvis was performed from the lung bases to the proximal femurs. Images are reviewed in the axial, sagittal, and coronal planes. IV contrast was not administered for this examination. A dose lowering technique was utilized adhering to the principles of ALARA. CT DOSE: FINDINGS: Lower chest: The heart is enlarged. There is dense calcification at the aortic root. There is a small right pleural effusion. There is bibasal pulmonary consolidation. Liver: The unenhanced liver is normal in size, contour, and attenuation. There is no intrahepatic biliary ductal dilatation. Gallbladder: Mildly distended. Multiple calculi are visualized. Spleen: Normal in size and attenuation. Pancreas: Unremarkable. Adrenal glands: Unremarkable. Kidneys: There are multiple bilateral low density renal masses, likely representing cysts. The largest in the right measures 9.2 cm. The largest in the left measures 5.4 cm. In addition there is an apparent 3.5 cm solid left renal mass. This was previously described and suspicious for a renal cell carcinoma. Bowel: There are no transition zones to indicate bowel obstruction. There is no acute diverticulitis. There are no findings to indicate acute appendicitis. There is a left femoral hernia containing a small segment of colon. There are no current obstructive changes. Peritoneum: There is no intraperitoneal free air or abdominal ascites. There is mild infiltration of the retroperitoneal fat paralleling the psoas muscles. This was present on the preceding study. Vasculature: There is aneurysmal dilatation of the abdominal aorta which measures 6.2 cm in maximal diameter. There is displacement of intimal calcifications consistent with an aortic dissection. This appears to extend into the right common iliac artery. This was previously described. Adenopathy: There is no pathologic adenopathy. Pelvic viscera: There is an indwelling Sandoval catheter. There is artifact secondary to a left hip arthroplasty Skeletal structures: No destructive osseous lesions are seen. IMPRESSION: 1. Small right pleural effusion and bilateral lower lobe pulmonary consolidation 2. Cholelithiasis 3. No evidence of bowel obstruction. No evidence of free air 4. 3.5 cm solid left renal mass consistent with the patient's suspected renal cell carcinoma. Additional renal lesions likely represent cysts 5. Bowel containing left inguinal hernia 6. Abdominal aortic aneurysm and dissection. Electronically signed by: Hernando Du M.D. 07/30/2017 12:20 PM Dictated Date/Time: 07/30/2017 12:12 PM
--- NOTE | 2017-07-30 12:31 | DIAGNOSTIC IMAGING REPORT ---
(CHEST) THORAX WITHOUT CLINICAL HISTORY: Acute Respiratory Failure COMPARISON STUDY: 8517 CT DOSE: TECHNIQUE: CT of the thorax was performed from the thoracic inlet to the lung bases. Images are reviewed in the axial, sagittal, and coronal planes. IV contrast was not administered for this examination. A dose lowering technique was utilized adhering to the principles of ALARA. FINDINGS: Thyroid: There is a 29 mm left lobe thyroid nodule. This appears larger than on the preceding study. Thoracic aorta: There is aneurysmal dilatation of the aorta at the thoracoabdominal junction. There are presumed postsurgical changes of a thoracic aortic aneurysm repair. Heart: The heart remains enlarged. Pacemaker electrodes are visualized Lungs and pleural spaces: There is dense bilateral lower lobe pulmonary consolidation. There is underlying pulmonary emphysema. Nodular airspace opacities are also present within the left upper lobe. A multifocal pneumonia is suspected. There is a small right pleural effusion. There is an indwelling endotracheal tube. Mediastinum: There is no mediastinal lymphadenopathy. Svetlana: There is no evidence of pathologic hilar adenopathy, but the study is limited due to the lack of intravenous contrast and the adjacent areas of parenchymal consolidation Axilla: There is no evidence of pathologic axillary lymphadenopathy Upper abdomen: There is a nasogastric tube visualized to the level of the esophagogastric junction. There is dilatation of the upper abdominal aorta. Skeletal structures: There are no lytic or blastic osseous lesions. IMPRESSION: 1. Enlarging 29 mm left lobe thyroid nodule 2. Small right pleural effusion 3. Bilateral lower lobe pulmonary consolidation and nodular left upper lobe airspace opacities. A multifocal pneumonia is suspected Electronically signed by: Hernando Du M.D. 07/30/2017 12:29 PM Dictated Date/Time: 07/30/2017 12:24 PM
--- NOTE | 2017-07-30 12:52 | Pharmacy Progress Note ---
Pharmacy Antibiotic Consult Date of Service: Jul 30, 2017. Pharmacy Dosing Scope Pharmacy was consulted to initiate vanc/zosyn IV dosing therapy, order appropriate labs and adjust drug dose/frequency. Subjective The patient is a 77 year old male admitted on Jul 28, 2017 at 22:16. Objective Height (Feet): 6 Height (Inches): 9.00 Weight (Kilograms): 92.200 Lab Results (24hrs): Test 07/29/17 17:28 07/29/17 22:09 07/30/17 05:11 07/30/17 05:27 Sodium Level 134 mmol/L (136-145) 133 mmol/L (136-145) Potassium Level 4.2 mmol/L (3.5-5.1) 4.2 mmol/L (3.5-5.1) Chloride Level 98 mmol/L (98-107) 99 mmol/L (98-107) Carbon Dioxide Level 30 mmol/L (21-32) 30 mmol/L (21-32) Anion Gap 6.0 mmol/L (3-11) 4.0 mmol/L (3-11) Blood Urea Nitrogen 17 mg/dl (7-18) 22 mg/dl (7-18) Creatinine 1.44 mg/dl (0.60-1.40) 1.85 mg/dl (0.60-1.40) Est Creatinine Clear Calc Drug Dose 51.6 ml/min 40.2 ml/min Estimated GFR () 53.9 39.8 Estimated GFR (Non- 46.5 34.4 BUN/Creatinine Ratio 11.5 (10-20) 11.9 (10-20) Random Glucose 121 mg/dl (70-99) 117 mg/dl (70-99) Calcium Level 7.9 mg/dl (8.5-10.1) 7.1 mg/dl (8.5-10.1) Bedside Glucose 124 mg/dl (70-99) White Blood Count 9.22 K/uL (4.8-10.8) Red Blood Count 3.36 M/uL (4.7-6.1) Hemoglobin 9.0 g/dL (14.0-18.0) Hematocrit 30.1 % (42-52) Mean Corpuscular Volume 89.6 fL (80-100) Mean Corpuscular Hemoglobin 26.8 pg (25-34) Mean Corpuscular Hemoglobin Concent 29.9 g/dl (32-36) RDW Standard Deviation 54.2 fL (36.4-46.3) RDW Coefficient of Variation 16.5 % (11.5-14.5) Platelet Count 179 K/uL (130-400) Mean Platelet Volume 9.7 fL (7.4-10.4) Prothrombin Time 36.2 SECONDS (9.0-12.0) Prothromb Time International Ratio 3.5 (0.9-1.1) Lactic Acid Level 0.7 mmol/L (0.4-2.0) Phosphorus Level 4.2 mg/dl (2.5-4.9) Magnesium Level 1.8 mg/dl (1.8-2.4) Total Bilirubin 0.6 mg/dl (0.2-1) Direct Bilirubin 0.2 mg/dl (0-0.2) Aspartate Amino Transf (AST/SGOT) 18 U/L (15-37) Alanine Aminotransferase (ALT/SGPT) 24 U/L (12-78) Alkaline Phosphatase 63 U/L (45-117) Total Protein 6.0 gm/dl (6.4-8.2) Albumin 2.2 gm/dl (3.4-5.0) Procalcitonin 0.48 ng/ml (0-0.5) Thyroid Stimulating Hormone (TSH) 2.930 uIu/ml (0.300-4.500) Bedside Glucose (other) 122 mg/dl (70-99) Test 07/30/17 06:16 07/30/17 09:01 07/30/17 09:12 07/30/17 09:48 Blood Gas Sample Site Art Line Art Line Bedside Blood Gas pH (LAB) 7.19 (7.35-7.45) 7.47 (7.35-7.45) Bedside Blood Gas pCO2 (LAB) 76 mmHg (35-46) 44 mmHg (35-46) Bedside Blood Gas pO2 (LAB) 71 mmHg (80-95) 142 mmHg (80-95) Bedside Blood Gas HCO3 (LAB) 29 meq/L (19-24) 32 meq/L (19-24) Bedside Blood Gas Total CO2 31 mEq/l (24-31) 33 mEq/l (24-31) Bedside Blood Gas Base Excess (LAB) 1.0 meq/L (-9-1.8) 8.0 meq/L (-9-1.8) Bedside Blood Gas O2 Saturation 88.0 % (90-95) 99.0 % (90-95) Elio Test NA NA Oxygen Delivery Device BIPAP Ventilator Bedside Oxygen Rate (breaths/min) 12 20 Bedside FiO2 60 % 100 % Blood Gas IPAP 15 Blood Gas Minute Ventilation 8.3 Blood Gas Tidal Volume 500 Blood Gas PEEP 10 Bedside Lactic Acid Arterial 0.86 mmol/L (0.36-1.25) Lactic Acid Level 1.1 mmol/L (0.4-2.0) Micro Results: positive MRSA nasal swab, strep species in the urine Assessment & Plan Loading dose was given by previous pharmacist: 2500 mg IV X 1 dose at 1630 on 07/29. followed by 1500mg q 12. However, renal function significantly bumped today. Therefore I will alter the regimen to 1500mg q 24, but place th next dose on hold pending trough level 07/31 @0130. Goal trough level estimate: between 15 - 20 mcg/mL(closer to [address] Persaud) Pharmacy will continue to follow and will adjust dose/frequency as necessary. Thank you
--- NOTE | 2017-07-30 15:19 | Hospitalist Progress Note ---
Hospitalist Progress Note Date of Service Jul 30, 2017. (Paulette Palumbo PA-C) Subjective Pt evaluation today including: conversation w/ patient, physical exam, chart review, lab review, review of studies, conversation w/ employment consultant (Dr. Persaud - ICU), review of inpatient medication list Patient seen and evaluated. Intubated this AM due to worsening ABGs and respiratory failure. ABGs improving since intubation. No family at bedside during my examination. BPs improving with pressor support. Urine output appears to be improving per I&Os. Minimal urine in Sandoval during my visit and dark. Patient is in no distress and sedated. Fingers and toes cool to touch with good pulses. Fingertips minimally cyanotic. Additional Comments: ROS deferred as patient is intubated. (Paulette Palumbo PA-C) Medications Current Inpatient Medications Medications (Trade) Dose Ordered Sig/Deion Route Start Time Stop Time Status Last Admin Dose Admin Amiodarone HCl (Cordarone Tab) 200 mg QAM PO 07/29/17 09:00 08/28/17 08:59 07/30/17 09:13 200 MG Ascorbic Acid (Vitamin C Tab) 500 mg QAM PO 07/29/17 09:00 08/28/17 08:59 07/30/17 09:13 500 MG Docusate Sodium (coLACE CAP) 100 mg QPM PO 07/29/17 21:00 08/28/17 20:59 07/29/17 22:13 100 MG Levothyroxine Sodium (Synthroid Tab) 25 mcg DAILYBB PO 07/29/17 06:30 08/28/17 06:59 07/29/17 04:32 25 MCG Pravastatin Sodium (Pravachol Tab) 40 mg HS PO 07/29/17 21:00 08/28/17 20:59 07/29/17 20:42 40 MG Warfarin Sodium (Coumadin Tab) 5 mg DAILY@16 PO 07/29/17 16:00 08/28/17 15:59 Future Hold 07/29/17 16:36 5 MG Acetaminophen (Tylenol Tab) 650 mg Q4H PRN PO 07/28/17 22:00 08/27/17 21:59 07/30/17 03:11 650 MG Al Hydrox/Mg Hydrox/Simethicone (Maalox Max Susp) 15 ml Q4H PRN PO 07/28/17 22:00 08/27/17 21:59 Magnesium Hydroxide (Milk Of Magnesia Susp) 30 ml Q6H PRN PO 07/28/17 22:00 08/27/17 21:59 Polyethylene (Miralax Powder Packet) 17 gm DAILY PRN PO 07/28/17 22:00 08/27/17 21:59 Ondansetron HCl (Zofran Inj) 4 mg Q6H PRN IV 07/28/17 22:00 08/27/17 21:59 Miscellaneous (Iv Fluids Completed) 1 ea PRN PRN N/A 07/29/17 02:30 07/29/18 02:29 Albuterol/ Ipratropium (Duoneb) 3 ml QIDR INH 07/29/17 08:00 08/28/17 07:59 07/29/17 16:25 3 ML Piperacillin Sod/ Tazobactam Sod 3.375 gm/Dextrose 115 ml @ 28.75 mls/ hr Q8H IV 07/29/17 22:00 08/08/17 21:59 07/30/17 05:32 28.75 MLS/HR Miscellaneous Information (Consult) 1 ea UD PRN N/A 07/29/17 16:00 08/28/17 15:59 Miscellaneous Information (Consult) 1 ea UD PRN N/A 07/29/17 16:00 08/28/17 15:59 Dopamine HCl/ Dextrose 0 ml @ 0 mls/hr Q0M PRN IV 07/29/17 20:23 08/28/17 20:22 Dobutamine HCl 0 ml @ 0 mls/hr Q0M PRN IV 07/30/17 00:08 08/29/17 00:07 07/30/17 10:04 30.7 MLS/HR Norepinephrine Bitartrate 8 mg/ Dextrose 508 ml @ 0 mls/hr Q0M PRN IV 07/30/17 05:05 08/29/17 05:04 07/30/17 05:19 34.5 MLS/HR Midazolam HCl (Versed Inj) 2 mg Q2H PRN IV 07/30/17 08:45 08/29/17 08:44 07/30/17 11:34 2 MG Fentanyl Citrate (Fentanyl Inj) 100 mcg Q2H PRN IV 07/30/17 08:45 08/13/17 08:44 Vasopressin 50 units/Sodium Chloride 502.5 ml @ 24 mls/hr [id number] IV 07/30/17 08:45 08/29/17 08:44 07/30/17 10:49 24 MLS/HR Pantoprazole Sodium 40 mg/ Syringe 10 ml @ 5 mls/min DAILY@11 IV 07/30/17 11:00 08/29/17 10:59 Aspirin (Aspirin Chew) 81 mg QAM PO 07/31/17 09:00 08/30/17 08:59 Vancomycin HCl 1500 mg/Sodium Chloride 530 ml @ 200 mls/hr Q24H IV 07/31/17 02:00 08/10/17 01:59 Future Hold (Paulette Palumbo, JUHI) Objective Vital Signs Date Time Temp Pulse Resp B/P (MAP) Pulse Ox O2 Delivery O2 Flow Rate FiO2 07/30/17 13:16 87 20 128/67 (87) 94 07/30/17 13:15 90 20 128/68 (88) 94 07/30/17 13:01 95 21 132/80 (97) 91 07/30/17 13:00 88 20 120/69 (86) 93 07/30/17 12:46 90 17 142/32 (68) 96 07/30/17 12:30 Mechanical Ventilator 60 07/30/17 12:30 37.2 92 20 122/69 (86) 94 07/30/17 12:17 60 07/30/17 11:30 90 123/66 (85) 96 Mechanical Ventilator 07/30/17 11:16 88 130/71 (90) 95 Mechanical Ventilator 07/30/17 11:15 87 129/66 (87) 95 Mechanical Ventilator 07/30/17 11:00 90 90/51 (64) 97 Mechanical Ventilator 07/30/17 10:45 89 100/48 (65) 93 Mechanical Ventilator 07/30/17 10:38 90 97/48 (64) Mechanical Ventilator 07/30/17 10:31 90 74/45 (55) 94 Mechanical Ventilator 07/30/17 10:30 89 75/45 (55) 95 Mechanical Ventilator 07/30/17 10:15 90 91/55 (67) 93 Mechanical Ventilator 07/30/17 10:00 90 105/62 (76) 96 Mechanical Ventilator 07/30/17 09:45 90 102/50 (67) Mechanical Ventilator 07/30/17 09:30 90 97/53 (68) Mechanical Ventilator 07/30/17 09:15 60 07/30/17 09:15 88 99/56 (70) 07/30/17 09:01 88 128/54 (78) 96 07/30/17 09:00 89 130/68 (88) 100 07/30/17 08:15 86 127/67 (87) 97 07/30/17 08:06 87 145/80 (101) 100 07/30/17 08:01 87 143/76 (98) 100 07/30/17 08:00 36.9 88 20 143/76 (98) 100 Mechanical Ventilator 100 07/30/17 08:00 Mechanical Ventilator 100 07/30/17 07:45 87 131/70 (90) 100 07/30/17 07:35 83 152/66 (94) 100 07/30/17 07:30 84 122/63 (82) 100 07/30/17 07:15 100 07/30/17 07:15 89 76/47 (57) 98 07/30/17 07:01 90 38/28 (31) 94 07/30/17 07:01 90 20 69/28 (32) 94 07/30/17 07:00 88 39/30 (33) 89 07/30/17 06:42 84 20 89/39 (54) 96 07/30/17 06:30 88 19 94/41 (60) 90 07/30/17 06:16 87 17 83/36 (37) 93 07/30/17 06:00 88 24 83/36 (54) 93 07/30/17 05:45 84 24 75/34 (40) 91 07/30/17 05:30 91 21 84/37 (57) 90 07/30/17 05:20 88 90 60 07/30/17 05:05 103 22 71/43 (52) 88 07/30/17 05:01 103 18 60/38 (44) 88 07/30/17 04:30 100 16 69/34 (49) 89 07/30/17 04:15 36.9 07/30/17 04:01 95 19 84/35 (39) 95 07/30/17 04:00 92 Oxymask 6.0 07/30/17 03:31 94 20 84/34 (53) 96 07/30/17 03:10 38.6 07/30/17 03:01 93 22 79/38 (47) 98 07/30/17 02:32 93 22 79/42 (43) 100 07/30/17 02:31 94 19 68/52 (45) 99 07/30/17 02:01 90 24 90/42 (59) 97 07/30/17 01:46 90 97 50 07/30/17 01:31 87 24 101/47 (56) 91 07/30/17 01:00 91 26 91/41 (47) 93 07/30/17 00:30 99 22 88/43 (54) 92 07/30/17 00:06 95 20 79/40 (55) 90 07/30/17 00:01 37.5 07/30/17 00:00 96 22 80/39 (53) 90 07/29/17 23:59 94 BiPAP 50 07/29/17 23:30 111 16 96/50 (54) 94 07/29/17 23:10 107 93 50 07/29/17 23:00 99 16 97/55 (67) 94 07/29/17 22:50 96 15 106/50 (64) 94 07/29/17 22:46 98 18 95/55 (56) 91 07/29/17 22:15 94 20 103/56 (73) 90 07/29/17 22:01 93 20 100/51 (75) 89 07/29/17 21:46 94 16 97/51 (62) 90 07/29/17 21:31 93 17 99/50 (76) 98 07/29/17 21:15 90 18 94/50 (72) 100 07/29/17 20:55 84 20 99/49 (56) 100 07/29/17 20:22 73 19 89/43 (52) 94 07/29/17 20:16 74 17 101/42 (55) 95 07/29/17 20:01 75 20 90/40 (55) 93 07/29/17 20:00 92 Nasal Cannula 5.0 07/29/17 20:00 37.8 07/29/17 19:11 37.5 74 20 76/44 (55) 97 Nasal Cannula 5.0 07/29/17 16:25 77 18 90 Nasal Cannula 5.0 07/29/17 16:17 37.8 07/29/17 16:00 94 Nasal Cannula 5.0 07/29/17 14:46 38.2 86 20 114/63 (80) 94 Nasal Cannula 5.0 (Paulette Palumbo PA-C) Physical Exam Notes: General Appearance: WDWN in NAD who is sedated and currently intubated HEENT: Head is normocephalic/atraumatic Neck: Supple; Trachea midline; Neg JVD; Neg lymphadenopathy Heart: RRR with systolic murmur Lungs: Anterior auscultation with course breath sounds; ET tube placed Abdomen: Soft, non-tender, non-distended; hypoactive BS Extremities: Minimal cyanosis of fingertips but pulses 2+ in wrists b/l; toes cool to touch without cyanosis Neurological: Sedated/Paralytic Skin: Normal Color; Warm/Dry (Paulette Palumbo PA-C) Laboratory Results Last 24 Hours Test 07/29/17 17:28 07/29/17 22:09 07/29/17 22:55 07/30/17 05:11 Sodium Level 134 mmol/L 133 mmol/L Potassium Level 4.2 mmol/L 4.2 mmol/L Chloride Level 98 mmol/L 99 mmol/L Carbon Dioxide Level 30 mmol/L 30 mmol/L Anion Gap 6.0 mmol/L 4.0 mmol/L Blood Urea Nitrogen 17 mg/dl 22 mg/dl Creatinine 1.44 mg/dl 1.85 mg/dl Est Creatinine Clear Calc Drug Dose 51.6 ml/min 40.2 ml/min Estimated GFR () 53.9 39.8 Estimated GFR (Non- 46.5 34.4 BUN/Creatinine Ratio 11.5 11.9 Random Glucose 121 mg/dl 117 mg/dl Calcium Level 7.9 mg/dl 7.1 mg/dl Bedside Glucose 124 mg/dl Blood Gas Sample Site Art Line Bedside Blood Gas pH (LAB) 7.33 Bedside Blood Gas pCO2 (LAB) 55 mmHg Bedside Blood Gas pO2 (LAB) 64 mmHg Bedside Blood Gas HCO3 (LAB) 29 meq/L Bedside Blood Gas Total CO2 30 mEq/l Bedside Blood Gas Base Excess (LAB) 3.0 meq/L Bedside Blood Gas O2 Saturation 89.0 % Elio Test NA Oxygen Delivery Device Other Bedside FiO2 0 % White Blood Count 9.22 K/uL Red Blood Count 3.36 M/uL Hemoglobin 9.0 g/dL Hematocrit 30.1 % Mean Corpuscular Volume 89.6 fL Mean Corpuscular Hemoglobin 26.8 pg Mean Corpuscular Hemoglobin Concent 29.9 g/dl RDW Standard Deviation 54.2 fL RDW Coefficient of Variation 16.5 % Platelet Count 179 K/uL Mean Platelet Volume 9.7 fL Prothrombin Time 36.2 SECONDS Prothromb Time International Ratio 3.5 Lactic Acid Level 0.7 mmol/L Phosphorus Level 4.2 mg/dl Magnesium Level 1.8 mg/dl Total Bilirubin 0.6 mg/dl Direct Bilirubin 0.2 mg/dl Aspartate Amino Transf (AST/SGOT) 18 U/L Alanine Aminotransferase (ALT/SGPT) 24 U/L Alkaline Phosphatase 63 U/L Total Protein 6.0 gm/dl Albumin 2.2 gm/dl Procalcitonin 0.48 ng/ml Thyroid Stimulating Hormone (TSH) 2.930 uIu/ml Test 07/30/17 05:18 07/30/17 05:27 07/30/17 06:16 07/30/17 09:01 Blood Gas Sample Site Art Line Art Line Art Line Bedside Blood Gas pH (LAB) 7.26 7.19 7.47 Bedside Blood Gas pCO2 (LAB) 64 mmHg 76 mmHg 44 mmHg Bedside Blood Gas pO2 (LAB) 62 mmHg 71 mmHg 142 mmHg Bedside Blood Gas HCO3 (LAB) 29 meq/L 29 meq/L 32 meq/L Bedside Blood Gas Total CO2 31 mEq/l 31 mEq/l 33 mEq/l Bedside Blood Gas Base Excess (LAB) 2.0 meq/L 1.0 meq/L 8.0 meq/L Bedside Blood Gas O2 Saturation 87.0 % 88.0 % 99.0 % Elio Test NA NA NA Oxygen Delivery Device Other BIPAP Ventilator Bedside FiO2 0 % 60 % 100 % Bedside Glucose (other) 122 mg/dl Bedside Oxygen Rate (breaths/min) 12 20 Blood Gas IPAP 15 Blood Gas Minute Ventilation 8.3 Blood Gas Tidal Volume 500 Blood Gas PEEP 10 Test 07/30/17 09:12 07/30/17 09:48 Bedside Lactic Acid Arterial 0.86 mmol/L Lactic Acid Level 1.1 mmol/L (Paulette Palumbo PA-C) Assessment and Plan Mr. Garcia is a 77 year old man here for increased weakness Acute Hypoxic Hypercarbic Respiratory Failure 2/2 Acute Systolic CHF and Multifocal Pneumonia - HCAP Coverage: IMPROVING - Patient was intubated on 07/30 and respiratory acidosis improving on subsequent draws - Zosyn and Vancomycin - Infectious Disease following - plan as above - Intensivists following - appreciate management Severe Sepsis with Septic Shock with Possible Cardiogenic Shock: Multifocal PNA vs Urinary Source vs Fluid Congestion - Currently in ICU on pressor support - appreciate management by intensivists - vitals improving and urine output improving SANTHOSH on CKD Stage III: - Cr beginning to trend down - Nephrology following - appreciate recommendations Hyperkalemia: RESOLVED - Appears that he continued supplementation despite DC of [facility] at [facility] CAD S/P CABG; AAA/Aortic Dissection; S/P ICD/Pacer; Acute Systolic CHF; Atrial Fibrillation: Supratherapeutic INR - Has bovine valve - INR goal 2-3 - Amiodarone 200 mg daily, Pravastatin 40 mg daily, and ASA 81 mg daily - Hold Toprol XL and Ramipril; Hold Coumadin 2/2 supratherapeutic INR and trend H/O Transverse Myelitis: STABLE - Weakness does not appear to be related to this - Neuro was consulted DVT Prophylaxis: Supratherapeutic INR Code Status: DO NOT RESUSCITATE - Consented for intubation Disposition: - Await clinical course; Palliative care consulted Continued [facility] stay due to: multiple IV medications needed Discharge planning: uncertain (Paulette Palumbo PA-C) Reviewed: Pt Seen/Exam by Me (Sandy Kidd MD) History PA Supervision Note: I interviewed and examined the patient. Discussed with SOTO Palumbo and agree with findings and plan as documented in the note. Any exceptions or clarifications are listed here: Pt admitted with weakness, suspected UTI, and acute hypoxemic and hypercapnic respiratory failure after recent dc from [facility] rehab 2 days prior. He reports he has had a cough. He was initially treated with IV Cefepime and Levaquin, but then switched to Rocephin for suspected UTI. He has a large left buttocks decubitus ulcer that was growing MSSA on culture from 1/18/18. Shortly after admission, he became encephalopathic and spiked a fever. His O2 requirement increased and he had a repeat CXR which showed increasing pulmonary edema. Personal review of images shows worsening pleural effusions, difficult to tell if underlying infiltrate on the portable CXR. He was given lasix 40mg IV x 1 and continued to be oliguric. He became hypotensive, with probable sepsis and cardiogenic shock and was transferred to the ICU for pressor support with placement of a CVC. The next AM, his hypercapnia worsened and he was intubated. Remains intubated, on vasopressin, dobutamine, Levophed, pressures improved, UOP improved. Discussed case with Tax Evaluator and Cardiology, as well as Nephrology today.Remains afebrile. Spoke with multiple family members including his , at bedside today. Vitals reviewed intubated, sedated RRR 2/6 NORM at LLSB Lungs with rhonchi and crackles at bases Abd +BS soft NT ND Ext trace pitting edema legs bilat, 1+ DP pulses bilat Skin: left hip with lateral incision scar well healed, previously seen left buttocks with 7x3cm wound with wet exudate but not examined today Chest CT reviewed ECG LBBB, NSR Labs reviewed Pt is a 77 yo male with extensive h/o Type A aortic dissection with repair and AVR in 2001, with subsequent repeat AVR with bovine valve, PAF on coumadin, AAA s/p ??repair, CAD s/p single vessel CABG, HTN, HL, chronic systolic CHF/dilated CM, transverse myelitis, hypothyroidism, CKD II-III, and recent left hip fracture repair, here with sepsis and septic plus cardiogenic shock, possible multifocal PNA vs UTI vs skin source of infection. -continue care in ICU, appreciate Tax Evaluator management of ventilator and pressors-wean off both as able to -holding home metoprolol and enalapril -Cardiology suggests floating PA catheter if cannot adequately assess volume status to determine about diuretic use -continue Zosyn and Vanco for suspected GNR and MRSA PNA given recent hospitalization, also covers for skin and urine infections -follow Urine and BCxs-late in day growing out GPRs on 1 set of BCxs, repeat BCs drawn -Appreciate ID recommendations -Appreciate Neuro consult recommending no steroids at this time for h/o transverse myelitis-weakness likely secondary to shock -wound care and turning for buttocks wound -was oliguric, with SANTHOSH, now improving-->follow UOP, maintain Sandoval, appreciate Nephro recommendations -holding coumadin and follow INR DNR Palliative Care following given guarded prognosis Documented By: Sandy Kidd (Sandy Kidd MD)
[2017-07-30 15:43] LABS: ALBUMIN 2.1 gm/dl (3.4-5.0); CALCIUM 7.1 mg/dl (8.5-10.1); CREATININE 1.57 mg/dl (0.60-1.40); POTASSIUM 3.7 mmol/L (3.5-5.1)
[2017-07-30 15:44] LABS: PHOSPHORUS 3.1 mg/dl (2.5-4.9)
--- NOTE | 2017-07-30 16:03 | Procedure Note ---
Procedure Note Date of Service Jul 30, 2017. Procedure Note Procedure Date: 07/30/2017 Procedure: Endotracheal intubation Pre-procedure Diagnosis: Hypoxic hypercarbic respiratory failure Post-procedure Diagnosis: same as above Prior to Procedure: Informed Consent: patient had been consented of the risks and benefits of intubation Attending Staff: Henrietta Persaud DO Indications: Patient is a 77-year-old male with acute hypoxic hypercarbic respiratory failure likely secondary to volume overload and congestive heart failure. The identity of the patient was confirmed and a bedside time out was performed. Description of Procedure: Patient was evaluated and required intubation for impending respiratory failure. The patient was prepared in the usual fashion. A MAC 3 laryngoscope was used. A 8.5 Fr endotrachial tube was placed endotracheally to 21 cm at the teeth. A grade 1 view was obtained. The endotracheal tube was noted to pass through the vocal cords. Chest rise was bilateral. Bilateral breath sounds were heard without air sounds in the abdomen. Mist was noted in the endotracheal tube. End-tidal CO2 measurement was positive. Chest x-ray shows proper endotracheal tube placement. Complications: None Findings: not applicable Specimens: not applicable Estimated blood loss: Zero
--- NOTE | 2017-07-30 16:16 | ECHOCARDIOGRAM REPORT ---
*NOTICE TO RECEIVING [employer] This information is strictly Confidential and protected under [place] law. [place] law prohibits you from making any further disclosure of this information unless further disclosure is expressly permitted by the written consent of the person to whom it pertains or is authorized by law. A general authorization for the release of medical or other information is not sufficient for this purpose. Hospital accepts no responsibility if the information is made available to any other person, INCLUDING THE PATIENT. Interpretation Summary * Name: KATHY LOREDO Study Date: 07/30/2017 02:49 PM BP: 128/67 mmHg * [facility] HR: 87 * : 1940 (M/d/yyyy) Gender: Male Height: 72 in * Age: 77 yrs Ethnicity: [place] Weight: 203 lb * Ordering Physician: Corwin Fuentes * Referring Physician: Byron Vizcaino * Performed By: Diane Mcleod RDCS * * Reason For Study: Hypotension * BSA: 2.1 m2 * -- Conclusions -- * The left ventricle is mildly dilated. * There is mild concentric left ventricular hypertrophy. * Left ventricular systolic function is severely reduced. * The left atrium is severely dilated. * There is mild mitral regurgitation. * There is mild to moderate tricuspid regurgitation. * Right ventricular systolic pressure is elevated at 30-40mmHg. * Compared to an echocardiogram from January 2017 in taking into account the difference in technique, there does appear to be slight reduction in overall LV systolic function. Pulmonary pressures appear slightly lower. Procedure Details * A complete two-dimensional transthoracic echocardiogram was performed (2D, M-mode, Doppler and color flow Doppler). Left Ventricle * The left ventricle is mildly dilated. * There is mild concentric left ventricular hypertrophy. * Ejection Fraction = 20-25%. * Left ventricular systolic function is severely reduced. * The lateral wall is mildly hypokinetic, the septum is severely hypokinetic, the basal inferior and anterior bone are severely hypokinetic with slightly improved function in the apical portion of this distribution. Right Ventricle * The right ventricle is not well visualized. * The right ventricular systolic function is normal as assessed by tricuspid annular plane systolic excursion (TAPSE) (normal >1.5 cm). Atria * The left atrium is severely dilated. * Right atrium not well visualized. Mitral Valve * The mitral valve is grossly normal. * There is mild mitral regurgitation. Tricuspid Valve * The tricuspid valve is not well visualized, but is grossly normal. * There is mild to moderate tricuspid regurgitation. * Right ventricular systolic pressure is elevated at 30-40mmHg. Aortic Valve * The aortic valve is calcified and has severely reduced opening * No hemodynamically significant valvular aortic stenosis. * Trace aortic regurgitation. Pericardium/Pleural * There is no pericardial effusion. Great Vessels * Normal inferior vena cava diameter and respiratory variation suggests normal central venous pressure. MMode 2D Measurements and Calculations IVSd 1.7 cm IVSs 1.7 cm LVIDd 6.0 cm LVIDs 4.8 cm LVPWd 1.5 cm LVPWs 1.4 cm IVS/LVPW 1.1 FS 19.1 % EDV(Teich) 176.6 ml ESV(Teich) 108.1 ml EF(Teich) 38.8 % EDV(cubed) 210.6 ml ESV(cubed) 111.4 ml EF(cubed) 47.1 % % IVS thick 0.19 % % LVPW thick -6.35 % LV mass(C)d 474.2 grams LV mass(C)dI 221.2 grams/m\S\2 LV mass(C)s 329.6 grams LV mass(C)sI 153.8 grams/m\S\2 SV(Teich) 68.5 ml SI(Teich) 31.9 ml/m\S\2 SV(cubed) 99.3 ml SI(cubed) 46.3 ml/m\S\2 EPSS 2.4 cm Ao root diam 2.8 cm Ao root area 6.3 cm\S\2 ACS 1.6 cm LA dimension 5.2 cm LA/Ao 1.8 LVAd ap4 52.0 cm\S\2 LVLd ap4 10.1 cm EDV(MOD-sp4) 220.7 ml EDV(sp4-el) 226.6 ml LVAs ap4 41.0 cm\S\2 LVLs ap4 9.3 cm ESV(MOD-sp4) 153.4 ml ESV(sp4-el) 152.8 ml EF(MOD-sp4) 30.5 % EF(sp4-el) 32.6 % LVAd ap2 44.3 cm\S\2 LVLd ap2 10.9 cm EDV(MOD-sp2) 157.9 ml EDV(sp2-el) 152.8 ml LVAs ap2 33.5 cm\S\2 LVLs ap2 10.1 cm ESV(MOD-sp2) 101.6 ml ESV(sp2-el) 94.9 ml EF(MOD-sp2) 35.6 % EF(sp2-el) 37.9 % LVLd %diff 7.1 % EDV(MOD-bp) 190.6 ml LVLs %diff 7.2 % ESV(MOD-bp) 126.1 ml EF(MOD-bp) 33.9 % SV(MOD-sp4) 67.3 ml SI(MOD-sp4) 31.4 ml/m\S\2 SV(MOD-sp2) 56.3 ml SI(MOD-sp2) 26.2 ml/m\S\2 SV(MOD-bp) 64.6 ml SI(MOD-bp) 30.1 ml/m\S\2 SV(sp4-el) 73.8 ml SI(sp4-el) 34.4 ml/m\S\2 SV(sp2-el) 57.9 ml SI(sp2-el) 27.0 ml/m\S\2 Doppler Measurements and Calculations MV E max lopez 92.9 cm/sec MV A max lopez 27.2 cm/sec MV E/A 3.4 MV dec time 0.16 sec Ao V2 max 203.7 cm/sec Ao max PG 16.6 mmHg Ao max PG (full) 12.1 mmHg Ao V2 mean 120.6 cm/sec Ao mean PG 6.9 mmHg Ao mean PG (full) 5.0 mmHg Ao V2 VTI 30.7 cm AI max lopez 210.7 cm/sec AI max PG 17.8 mmHg AI dec slope 262.5 cm/sec\S\2 AI P1/2t 235.1 msec LV V1 max PG 4.5 mmHg LV V1 mean PG 1.9 mmHg LV V1 max 106.6 cm/sec LV V1 mean 64.0 cm/sec LV V1 VTI 18.1 cm MR max lopez 614.3 cm/sec MR max PG 150.9 mmHg MR mean lopez 435.7 cm/sec MR mean PG 88.5 mmHg MR VTI 183.0 cm SV(Ao) 194.7 ml SI(Ao) 90.8 ml/m\S\2 PA V2 max 119.5 cm/sec PA max PG 5.7 mmHg TR max lopez 286.9 cm/sec
--- NOTE | 2017-07-30 16:30 | Palliative Care Progress Note ---
Palliative Care Progress Note Date of Service Jul 30, 2017. Subjective Pt evaluation today including: conversation w/ cruise consultant (Dr. Persaud, Dr. Kidd) Consult received. Spoke with senior communications engineer and attending hospitalist about patient. Patient currently intubated in ICU. Family was not at bedside or in either waiting room on 1st floor. I will be in ICU in AM for rounds, formal consult to follow. Thank you for including me in the care of this patient.
--- NOTE | 2017-07-30 17:01 | Nephrology Consultation ---
Nephrology Consultation Date & Providers Date of Consultation: Jul 30, 2017. Primary Care Provider: Edilberto Valiente M.D. Referring Provider: Reason for Consultation Acute renal insufficiency, CHF History of Present Illness Mr. Susan Garcia was seen and evaluated in the medical ICU earlier this afternoon. The patient was sedated and intubated. Medical history was obtained through the medical record as well as discussion with ICU nursing staff and Dr. Kidd. The patient remains critically ill on vasopressor and inotropic support. He is intubated. Mr. Garcia is a 77-year-old male with coronary artery disease, CHD ( LVEF 35%), COPD, CKD (baseline creatinine ~1.0 mg/dL), vascular disease, history of transverse myelitis, chronic urinary retention with indwelling Sandoval. The patient is non oliguric at this time. He remains in a positive fluid balance. Mr. Garcia underwent USMAN (06/26/17) for a hip fracture. He completed rehab at [facility] and 2 days after discharge presented to the ED with generalized weakness. While at [facility] diuretics were held. Susan was admitted with hypotension, hyperkalemia and hypoxia. Clinically decompensated during his hospitalization. Clinical presentation consistent with CHF. Diuresis has been complicated by hypotension and renal insufficiency. He developed ventilatory compromise leading to intubation. Hyperkalemia has improved with treatment. Metabolic profile is acceptable at this time. Past Medical/Surgical History Medical: Coronary artery disease, history of CABG CHF (LVEF 35%) AAA COPD Obesity Urinary retention with indwelling Sandoval OA/DJD HLD Hypothyroidism BPH Chronic back pain History of transverse myelitis Surgical: USMAN CABG AVR Pacer/AICD Allergies Coded Allergies: Adhesives (Verified Allergy, Unknown, removed skin, 06/24/17) Inpatient Medications Current Inpatient Medications Medications (Trade) Dose Ordered Sig/Deion Route Start Time Stop Time Status Last Admin Dose Admin Amiodarone HCl (Cordarone Tab) 200 mg QAM PO 07/29/17 09:00 08/28/17 08:59 07/30/17 09:13 200 MG Ascorbic Acid (Vitamin C Tab) 500 mg QAM PO 07/29/17 09:00 08/28/17 08:59 07/30/17 09:13 500 MG Docusate Sodium (coLACE CAP) 100 mg QPM PO 07/29/17 21:00 08/28/17 20:59 07/29/17 22:13 100 MG Levothyroxine Sodium (Synthroid Tab) 25 mcg DAILYBB PO 07/29/17 06:30 08/28/17 06:59 07/29/17 04:32 25 MCG Pravastatin Sodium (Pravachol Tab) 40 mg HS PO 07/29/17 21:00 08/28/17 20:59 07/29/17 20:42 40 MG Warfarin Sodium (Coumadin Tab) 5 mg DAILY@16 PO 07/29/17 16:00 08/28/17 15:59 Future Hold 07/29/17 16:36 5 MG Acetaminophen (Tylenol Tab) 650 mg Q4H PRN PO 07/28/17 22:00 08/27/17 21:59 07/30/17 03:11 650 MG Al Hydrox/Mg Hydrox/Simethicone (Maalox Max Susp) 15 ml Q4H PRN PO 07/28/17 22:00 08/27/17 21:59 Magnesium Hydroxide (Milk Of Magnesia Susp) 30 ml Q6H PRN PO 07/28/17 22:00 08/27/17 21:59 Polyethylene (Miralax Powder Packet) 17 gm DAILY PRN PO 07/28/17 22:00 08/27/17 21:59 Ondansetron HCl (Zofran Inj) 4 mg Q6H PRN IV 07/28/17 22:00 08/27/17 21:59 Miscellaneous (Iv Fluids Completed) 1 ea PRN PRN N/A 07/29/17 02:30 07/29/18 02:29 Albuterol/ Ipratropium (Duoneb) 3 ml QIDR INH 07/29/17 08:00 08/28/17 07:59 07/29/17 16:25 3 ML Piperacillin Sod/ Tazobactam Sod 3.375 gm/Dextrose 115 ml @ 28.75 mls/ hr Q8H IV 07/29/17 22:00 08/08/17 21:59 07/30/17 14:28 28.75 MLS/HR Miscellaneous Information (Consult) 1 ea UD PRN N/A 07/29/17 16:00 08/28/17 15:59 Miscellaneous Information (Consult) 1 ea UD PRN N/A 07/29/17 16:00 08/28/17 15:59 Dopamine HCl/ Dextrose 0 ml @ 0 mls/hr Q0M PRN IV 07/29/17 20:23 08/28/17 20:22 Dobutamine HCl 0 ml @ 0 mls/hr Q0M PRN IV 07/30/17 00:08 08/29/17 00:07 07/30/17 10:04 30.7 MLS/HR Norepinephrine Bitartrate 8 mg/ Dextrose 508 ml @ 0 mls/hr Q0M PRN IV 07/30/17 05:05 08/29/17 05:04 07/30/17 05:19 34.5 MLS/HR Midazolam HCl (Versed Inj) 2 mg Q2H PRN IV 07/30/17 08:45 08/29/17 08:44 07/30/17 11:34 2 MG Fentanyl Citrate (Fentanyl Inj) 100 mcg Q2H PRN IV 07/30/17 08:45 08/13/17 08:44 07/30/17 13:55 100 MCG Vasopressin 50 units/Sodium Chloride 502.5 ml @ 24 mls/hr [id number] IV 07/30/17 08:45 08/29/17 08:44 07/30/17 10:49 24 MLS/HR Pantoprazole Sodium 40 mg/ Syringe 10 ml @ 5 mls/min DAILY@11 IV 07/30/17 11:00 08/29/17 10:59 Aspirin (Aspirin Chew) 81 mg QAM PO 07/31/17 09:00 08/30/17 08:59 Vancomycin HCl 1500 mg/Sodium Chloride 530 ml @ 200 mls/hr Q24H IV 07/31/17 02:00 08/10/17 01:59 Future Hold Family History Patient reports no known family medical history. Social History Smoking Status: Former Smoker Drug Use: none Marital Status: Housing Status: lives with family Occupation: retired Review of Systems A complete review of systems was performed. Pertinent positives are noted above. All other systems are negative. Physical Exam Date Time Temp Pulse Resp B/P (MAP) Pulse Ox O2 Delivery O2 Flow Rate FiO2 07/30/17 16:00 37.3 90 20 145/69 (94) 98 Mechanical Ventilator 60 07/30/17 16:00 Mechanical Ventilator 60 07/30/17 15:45 90 15 112/67 (82) 96 07/30/17 15:30 86 21 120/64 (82) 98 07/30/17 15:15 86 20 128/66 (86) 99 07/30/17 15:00 86 20 90/66 (74) 98 07/30/17 14:45 87 20 97/69 (78) 98 07/30/17 14:30 86 20 124/89 (101) 98 07/30/17 14:15 88 20 109/85 (93) 94 07/30/17 14:00 88 20 114/63 (80) 94 07/30/17 13:45 86 20 122/64 (83) 93 07/30/17 13:30 86 20 136/69 (91) 94 07/30/17 13:16 87 20 128/67 (87) 94 07/30/17 13:15 90 20 128/68 (88) 94 07/30/17 13:01 95 21 132/80 (97) 91 07/30/17 13:00 88 20 120/69 (86) 93 07/30/17 12:46 90 17 142/32 (68) 96 07/30/17 12:30 Mechanical Ventilator 60 07/30/17 12:30 37.2 92 20 122/69 (86) 94 07/30/17 12:17 60 07/30/17 11:30 90 123/66 (85) 96 Mechanical Ventilator 07/30/17 11:16 88 130/71 (90) 95 Mechanical Ventilator 07/30/17 11:15 87 129/66 (87) 95 Mechanical Ventilator 07/30/17 11:00 90 90/51 (64) 97 Mechanical Ventilator 07/30/17 10:45 89 100/48 (65) 93 Mechanical Ventilator 07/30/17 10:38 90 97/48 (64) Mechanical Ventilator 07/30/17 10:31 90 74/45 (55) 94 Mechanical Ventilator 07/30/17 10:30 89 75/45 (55) 95 Mechanical Ventilator 07/30/17 10:15 90 91/55 (67) 93 Mechanical Ventilator 07/30/17 10:00 90 105/62 (76) 96 Mechanical Ventilator 07/30/17 09:45 90 102/50 (67) Mechanical Ventilator 07/30/17 09:30 90 97/53 (68) Mechanical Ventilator 07/30/17 09:15 60 07/30/17 09:15 88 99/56 (70) 07/30/17 09:01 88 128/54 (78) 96 07/30/17 09:00 89 130/68 (88) 100 07/30/17 08:15 86 127/67 (87) 97 07/30/17 08:06 87 145/80 (101) 100 07/30/17 08:01 87 143/76 (98) 100 07/30/17 08:00 36.9 88 20 143/76 (98) 100 Mechanical Ventilator 100 07/30/17 08:00 Mechanical Ventilator 100 07/30/17 08:00 Mechanical Ventilator 100 07/30/17 07:45 87 131/70 (90) 100 07/30/17 07:35 83 152/66 (94) 100 07/30/17 07:30 84 122/63 (82) 100 07/30/17 07:15 100 07/30/17 07:15 89 76/47 (57) 98 07/30/17 07:01 90 38/28 (31) 94 07/30/17 07:01 90 20 69/28 (32) 94 07/30/17 07:00 88 39/30 (33) 89 07/30/17 06:42 84 20 89/39 (54) 96 07/30/17 06:30 88 19 94/41 (60) 90 07/30/17 06:16 87 17 83/36 (37) 93 07/30/17 06:00 88 24 83/36 (54) 93 07/30/17 05:45 84 24 75/34 (40) 91 07/30/17 05:30 91 21 84/37 (57) 90 07/30/17 05:20 88 90 60 07/30/17 05:05 103 22 71/43 (52) 88 07/30/17 05:01 103 18 60/38 (44) 88 07/30/17 04:30 100 16 69/34 (49) 89 07/30/17 04:15 36.9 07/30/17 04:01 95 19 84/35 (39) 95 07/30/17 04:00 92 Oxymask 6.0 07/30/17 03:31 94 20 84/34 (53) 96 07/30/17 03:10 38.6 07/30/17 03:01 93 22 79/38 (47) 98 07/30/17 02:32 93 22 79/42 (43) 100 07/30/17 02:31 94 19 68/52 (45) 99 07/30/17 02:01 90 24 90/42 (59) 97 07/30/17 01:46 90 97 50 07/30/17 01:31 87 24 101/47 (56) 91 07/30/17 01:00 91 26 91/41 (47) 93 07/30/17 00:30 99 22 88/43 (54) 92 07/30/17 00:06 95 20 79/40 (55) 90 07/30/17 00:01 37.5 07/30/17 00:00 96 22 80/39 (53) 90 07/29/17 23:59 94 BiPAP 50 07/29/17 23:30 111 16 96/50 (54) 94 07/29/17 23:10 107 93 50 07/29/17 23:00 99 16 97/55 (67) 94 07/29/17 22:50 96 15 106/50 (64) 94 07/29/17 22:46 98 18 95/55 (56) 91 07/29/17 22:15 94 20 103/56 (73) 90 07/29/17 22:01 93 20 100/51 (75) 89 07/29/17 21:46 94 16 97/51 (62) 90 07/29/17 21:31 93 17 99/50 (76) 98 07/29/17 21:15 90 18 94/50 (72) 100 07/29/17 20:55 84 20 99/49 (56) 100 07/29/17 20:22 73 19 89/43 (52) 94 07/29/17 20:16 74 17 101/42 (55) 95 07/29/17 20:01 75 20 90/40 (55) 93 07/29/17 20:00 92 Nasal Cannula 5.0 07/29/17 20:00 37.8 07/29/17 19:11 37.5 74 20 76/44 (55) 97 Nasal Cannula 5.0 General Appearance: WD/WN, + obese Head: normocephalic, atraumatic Eyes: normal inspection, sclerae normal ENT: normal ENT inspection, + pertinent finding (ETT) Neck: + JVD Respiratory/Chest: + rales, + pertinent finding (no wheeze or rhonchi) Cardiovascular: regular rate, rhythm, no gallop, + systolic murmur Abdomen/GI: soft, + distended Genitourinary - Male: + pertinent finding (Sandoval draining clear yellow urine) Extremities/Musculoskelatal: + pedal edema, + pertinent finding (distal cyanosis) Neurologic/Psych: + pertinent finding (sedated, unresponsive) Skin: normal color Laboratory Results Last 24 Hours Test 07/29/17 17:28 07/29/17 22:09 07/29/17 22:55 07/30/17 05:11 Sodium Level 134 mmol/L 133 mmol/L Potassium Level 4.2 mmol/L 4.2 mmol/L Chloride Level 98 mmol/L 99 mmol/L Carbon Dioxide Level 30 mmol/L 30 mmol/L Anion Gap 6.0 mmol/L 4.0 mmol/L Blood Urea Nitrogen 17 mg/dl 22 mg/dl Creatinine 1.44 mg/dl 1.85 mg/dl Est Creatinine Clear Calc Drug Dose 51.6 ml/min 40.2 ml/min Estimated GFR () 53.9 39.8 Estimated GFR (Non- 46.5 34.4 BUN/Creatinine Ratio 11.5 11.9 Random Glucose 121 mg/dl 117 mg/dl Calcium Level 7.9 mg/dl 7.1 mg/dl Bedside Glucose 124 mg/dl Blood Gas Sample Site Art Line Bedside Blood Gas pH (LAB) 7.33 Bedside Blood Gas pCO2 (LAB) 55 mmHg Bedside Blood Gas pO2 (LAB) 64 mmHg Bedside Blood Gas HCO3 (LAB) 29 meq/L Bedside Blood Gas Total CO2 30 mEq/l Bedside Blood Gas Base Excess (LAB) 3.0 meq/L Bedside Blood Gas O2 Saturation 89.0 % Elio Test NA Oxygen Delivery Device Other Bedside FiO2 0 % White Blood Count 9.22 K/uL Red Blood Count 3.36 M/uL Hemoglobin 9.0 g/dL Hematocrit 30.1 % Mean Corpuscular Volume 89.6 fL Mean Corpuscular Hemoglobin 26.8 pg Mean Corpuscular Hemoglobin Concent 29.9 g/dl RDW Standard Deviation 54.2 fL RDW Coefficient of Variation 16.5 % Platelet Count 179 K/uL Mean Platelet Volume 9.7 fL Prothrombin Time 36.2 SECONDS Prothromb Time International Ratio 3.5 Lactic Acid Level 0.7 mmol/L Phosphorus Level 4.2 mg/dl Magnesium Level 1.8 mg/dl Total Bilirubin 0.6 mg/dl Direct Bilirubin 0.2 mg/dl Aspartate Amino Transf (AST/SGOT) 18 U/L Alanine Aminotransferase (ALT/SGPT) 24 U/L Alkaline Phosphatase 63 U/L Total Protein 6.0 gm/dl Albumin 2.2 gm/dl Procalcitonin 0.48 ng/ml Thyroid Stimulating Hormone (TSH) 2.930 uIu/ml Test 07/30/17 05:18 07/30/17 05:27 07/30/17 06:16 07/30/17 09:01 Blood Gas Sample Site Art Line Art Line Art Line Bedside Blood Gas pH (LAB) 7.26 7.19 7.47 Bedside Blood Gas pCO2 (LAB) 64 mmHg 76 mmHg 44 mmHg Bedside Blood Gas pO2 (LAB) 62 mmHg 71 mmHg 142 mmHg Bedside Blood Gas HCO3 (LAB) 29 meq/L 29 meq/L 32 meq/L Bedside Blood Gas Total CO2 31 mEq/l 31 mEq/l 33 mEq/l Bedside Blood Gas Base Excess (LAB) 2.0 meq/L 1.0 meq/L 8.0 meq/L Bedside Blood Gas O2 Saturation 87.0 % 88.0 % 99.0 % Elio Test NA NA NA Oxygen Delivery Device Other BIPAP Ventilator Bedside FiO2 0 % 60 % 100 % Bedside Glucose (other) 122 mg/dl Bedside Oxygen Rate (breaths/min) 12 20 Blood Gas IPAP 15 Blood Gas Minute Ventilation 8.3 Blood Gas Tidal Volume 500 Blood Gas PEEP 10 Test 07/30/17 09:12 07/30/17 09:48 07/30/17 13:30 07/30/17 15:07 Bedside Lactic Acid Arterial 0.86 mmol/L Lactic Acid Level 1.1 mmol/L Urine Color YELLOW Urine Appearance CLOUDY Urine pH 5.0 Urine Specific [place] 1.026 Urine Protein 1+ Urine Glucose (UA) NEG Urine Ketones NEG Urine Occult Blood 1+ Urine Nitrite NEG Urine Bilirubin NEG Urine Urobilinogen NEG Urine Leukocyte Esterase SMALL Urine WBC (Auto) 10-30 /hpf Urine RBC (Auto) 10-30 /hpf Urine Hyaline Casts (Auto) 5-10 /lpf Urine Epithelial Cells (Auto) >30 /lpf Urine Bacteria (Auto) NEG Urine Renal Epithelial Cells /lpf Urine Pathogenic Casts /lpf Urine Yeast (Auto) Sodium Level 131 mmol/L Potassium Level 3.7 mmol/L Chloride Level 95 mmol/L Carbon Dioxide Level 30 mmol/L Anion Gap 6.0 mmol/L Blood Urea Nitrogen 22 mg/dl Creatinine 1.57 mg/dl Est Creatinine Clear Calc Drug Dose 43.3 ml/min Estimated GFR () 48.6 Estimated GFR (Non- 41.9 BUN/Creatinine Ratio 13.7 Random Glucose 153 mg/dl Calcium Level 7.1 mg/dl Phosphorus Level 3.1 mg/dl Albumin 2.1 gm/dl Impression (1) Acute on chronic renal insufficiency (2) Acute on chronic systolic CHF (congestive heart failure) (3) Cardiogenic shock (4) Acute respiratory failure with hypoxia and hypercapnia Mr. Garcia is a critically ill 77-year-old male with acute on chronic renal insufficiency in the setting of cardiogenic shock. He has acute on chronic systolic CHF. Urine output appears to be responding to diuretics. The patient is on ionotropic and vasopressor support. Metabolic profile is otherwise acceptable and there is no acute indication for dialysis at this time. Hemodynamically, patient would be a poor candidate for conventional intermittent HD. Goals of care are continuing to be discussed. Primary goal at this time include improving respiratory status to allow weaning from vent. Palliative care has been in contact with the patient's family. Loop diuretics will be continued to encourage a negative fluid balance. I would suggest an additional 40 mg now and repeat q6-8 hours. Continuous drip would be an alternative consideration. Metabolic profile should be monitored at least q [address] of the abdomen was reviewed. Noted are several renal cysts including a large right renal cyst of ~10 cm as well as a 2.5 cm complex cyst concerning for renal cell carcinoma. This will require outpatient follow up. To help with assessment, TTE was reviewed. CXR's were personally reviewed. Approximately 45 minutes of critical care time was provided today.
--- NOTE | 2017-07-30 17:55 | Cardiology Consultation ---
Cardiology Consultation Date of Consultation: Jul 30, 2017. Requesting Physician: Marti Reason for Consultation: Hypoxia Pt evaluation today including: conversation w/ family, physical exam, chart review, lab review, review of studies, conversation w/ peoplesoft financials consultant, review of inpatient medication list, conversation w/ attending History of Present Illness The patient is a 77-year-old gentleman with an extensive cardiac history who normally sees Dr. Meléndez who was admitted to [facility] for decreased mobility and weakness. Patient has suffered a hip fracture at the end of 2016 and recently was discharged from rehabilitation. Patient had some difficulty with ambulation and weakness. He apparently also had some symptoms of infection was noted to have both a decubitus ulcer and possible urinary tract infection. He was admitted for treatment but did developed an element of hypotension. He was hypoxic at the time of admission and later developed significant respiratory distress requiring intubation. The patient is currently intubated and sedated. The history was obtained from the chart, his care team and family. It seems he has had some elevated temperatures during the admission. He initially was felt to be hypovolemic and was administered fluid. Later in the admission he underwent diuresis with resultant hypotension. More recently he has been given some volume in order to treat hypotension and reduced urine output. Past Medical/Surgical History Ascending aortic dissection 2000 Coronary artery disease status post single-vessel coronary bypass in 2001 Abdominal aortic aneurysm repair 2008, with noted persistent chronic dissection on CT scanning Congestive heart failure with cardiomyopathy Atrial flutter Possible renal cell carcinoma Benign prostatic hypertrophy Chronic renal insufficiency stage III Chronic obstructive pulmonary disease Hyperlipidemia Hypertension Past surgical history: Repair of ascending thoracic aortic aneurysm with placement of mechanical mitral valve 2000 Re-exploration at the time of his initial surgery for cardiac tamponade 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 Noncontributory given his advanced age in current cardiac status Social History Smoking Status: Former Smoker History of Alcohol Use: No Lives at home with his Review of Systems Respiratory: + shortness of breath Could not be obtained as the patient is currently intubated and sedated Allergies Coded Allergies: Adhesives (Verified Allergy, Unknown, removed skin, 06/24/17) Medications Current Inpatient Medications Medications (Trade) Dose Ordered Sig/Deion Route Start Time Stop Time Status Last Admin Dose Admin Amiodarone HCl (Cordarone Tab) 200 mg QAM PO 07/29/17 09:00 08/28/17 08:59 07/30/17 09:13 200 MG Ascorbic Acid (Vitamin C Tab) 500 mg QAM PO 07/29/17 09:00 08/28/17 08:59 07/30/17 09:13 500 MG Docusate Sodium (coLACE CAP) 100 mg QPM PO 07/29/17 21:00 08/28/17 20:59 07/29/17 22:13 100 MG Levothyroxine Sodium (Synthroid Tab) 25 mcg DAILYBB PO 07/29/17 06:30 08/28/17 06:59 07/29/17 04:32 25 MCG Pravastatin Sodium (Pravachol Tab) 40 mg HS PO 07/29/17 21:00 08/28/17 20:59 07/29/17 20:42 40 MG Warfarin Sodium (Coumadin Tab) 5 mg DAILY@16 PO 07/29/17 16:00 08/28/17 15:59 Future Hold 07/29/17 16:36 5 MG Acetaminophen (Tylenol Tab) 650 mg Q4H PRN PO 07/28/17 22:00 08/27/17 21:59 07/30/17 03:11 650 MG Al Hydrox/Mg Hydrox/Simethicone (Maalox Max Susp) 15 ml Q4H PRN PO 07/28/17 22:00 08/27/17 21:59 Magnesium Hydroxide (Milk Of Magnesia Susp) 30 ml Q6H PRN PO 07/28/17 22:00 08/27/17 21:59 Polyethylene (Miralax Powder Packet) 17 gm DAILY PRN PO 07/28/17 22:00 08/27/17 21:59 Ondansetron HCl (Zofran Inj) 4 mg Q6H PRN IV 07/28/17 22:00 08/27/17 21:59 Miscellaneous (Iv Fluids Completed) 1 ea PRN PRN N/A 07/29/17 02:30 07/29/18 02:29 Albuterol/ Ipratropium (Duoneb) 3 ml QIDR INH 07/29/17 08:00 08/28/17 07:59 07/29/17 16:25 3 ML Piperacillin Sod/ Tazobactam Sod 3.375 gm/Dextrose 115 ml @ 28.75 mls/ hr Q8H IV 07/29/17 22:00 08/08/17 21:59 07/30/17 14:28 28.75 MLS/HR Miscellaneous Information (Consult) 1 ea UD PRN N/A 07/29/17 16:00 08/28/17 15:59 Miscellaneous Information (Consult) 1 ea UD PRN N/A 07/29/17 16:00 08/28/17 15:59 Dopamine HCl/ Dextrose 0 ml @ 0 mls/hr Q0M PRN IV 07/29/17 20:23 08/28/17 20:22 Dobutamine HCl 0 ml @ 0 mls/hr Q0M PRN IV 07/30/17 00:08 08/29/17 00:07 07/30/17 10:04 30.7 MLS/HR Norepinephrine Bitartrate 8 mg/ Dextrose 508 ml @ 0 mls/hr Q0M PRN IV 07/30/17 05:05 08/29/17 05:04 07/30/17 05:19 34.5 MLS/HR Midazolam HCl (Versed Inj) 2 mg Q2H PRN IV 07/30/17 08:45 08/29/17 08:44 07/30/17 11:34 2 MG Fentanyl Citrate (Fentanyl Inj) 100 mcg Q2H PRN IV 07/30/17 08:45 08/13/17 08:44 07/30/17 13:55 100 MCG Vasopressin 50 units/Sodium Chloride 502.5 ml @ 24 mls/hr [id number] IV 07/30/17 08:45 08/29/17 08:44 07/30/17 10:49 24 MLS/HR Pantoprazole Sodium 40 mg/ Syringe 10 ml @ 5 mls/min DAILY@11 IV 07/30/17 11:00 08/29/17 10:59 Aspirin (Aspirin Chew) 81 mg QAM PO 07/31/17 09:00 08/30/17 08:59 Vancomycin HCl 1500 mg/Sodium Chloride 530 ml @ 200 mls/hr Q24H IV 07/31/17 02:00 08/10/17 01:59 Future Hold Physical Exam Vital Signs Past 12 Hours Date Time Temp Pulse Resp B/P (MAP) Pulse Ox O2 Delivery O2 Flow Rate FiO2 07/30/17 16:00 37.3 90 20 145/69 (94) 98 Mechanical Ventilator 60 07/30/17 16:00 Mechanical Ventilator 60 07/30/17 15:45 90 15 112/67 (82) 96 07/30/17 15:30 86 21 120/64 (82) 98 07/30/17 15:15 86 20 128/66 (86) 99 07/30/17 15:00 86 20 90/66 (74) 98 07/30/17 14:45 87 20 97/69 (78) 98 07/30/17 14:30 86 20 124/89 (101) 98 07/30/17 14:15 88 20 109/85 (93) 94 07/30/17 14:00 88 20 114/63 (80) 94 07/30/17 13:45 86 20 122/64 (83) 93 07/30/17 13:30 86 20 136/69 (91) 94 07/30/17 13:16 87 20 128/67 (87) 94 07/30/17 13:15 90 20 128/68 (88) 94 07/30/17 13:01 95 21 132/80 (97) 91 07/30/17 13:00 88 20 120/69 (86) 93 07/30/17 12:46 90 17 142/32 (68) 96 07/30/17 12:30 Mechanical Ventilator 60 07/30/17 12:30 37.2 92 20 122/69 (86) 94 07/30/17 12:17 60 07/30/17 11:30 90 123/66 (85) 96 Mechanical Ventilator 07/30/17 11:16 88 130/71 (90) 95 Mechanical Ventilator 07/30/17 11:15 87 129/66 (87) 95 Mechanical Ventilator 07/30/17 11:00 90 90/51 (64) 97 Mechanical Ventilator 07/30/17 10:45 89 100/48 (65) 93 Mechanical Ventilator 07/30/17 10:38 90 97/48 (64) Mechanical Ventilator 07/30/17 10:31 90 74/45 (55) 94 Mechanical Ventilator 07/30/17 10:30 89 75/45 (55) 95 Mechanical Ventilator 07/30/17 10:15 90 91/55 (67) 93 Mechanical Ventilator 07/30/17 10:00 90 105/62 (76) 96 Mechanical Ventilator 07/30/17 09:45 90 102/50 (67) Mechanical Ventilator 07/30/17 09:30 90 97/53 (68) Mechanical Ventilator 07/30/17 09:15 60 07/30/17 09:15 88 99/56 (70) 07/30/17 09:01 88 128/54 (78) 96 07/30/17 09:00 89 130/68 (88) 100 07/30/17 08:15 86 127/67 (87) 97 07/30/17 08:06 87 145/80 (101) 100 07/30/17 08:01 87 143/76 (98) 100 07/30/17 08:00 36.9 88 20 143/76 (98) 100 Mechanical Ventilator 100 07/30/17 08:00 Mechanical Ventilator 100 07/30/17 08:00 Mechanical Ventilator 100 07/30/17 07:45 87 131/70 (90) 100 07/30/17 07:35 83 152/66 (94) 100 07/30/17 07:30 84 122/63 (82) 100 07/30/17 07:15 100 07/30/17 07:15 89 76/47 (57) 98 07/30/17 07:01 90 38/28 (31) 94 07/30/17 07:01 90 20 69/28 (32) 94 07/30/17 07:00 88 39/30 (33) 89 07/30/17 06:42 84 20 89/39 (54) 96 07/30/17 06:30 88 19 94/41 (60) 90 07/30/17 06:16 87 17 83/36 (37) 93 07/30/17 06:00 88 24 83/36 (54) 93 07/30/17 05:45 84 24 75/34 (40) 91 Intubated and sedated HEENT: Pupils are equal and reactive to light and accommodation. The sclerae are anicteric. Neuro: Cranial nerves cannot be evaluated as he is currently intubated and sedated Neck: Patient's neck is supple. He has palpable carotid pulses bilaterally without bruits on auscultation. There is no evidence of jugular venous distention but his neck tissue was quite redundant. The thyroid is not enlarged. Lungs: Coarse breath sounds throughout all lung uribe Cardiac: Heart demonstrates a regular rate and rhythm with frequent ectopy. Normal S1 and S2. Soft crescendo murmur of variable intensity. Pulses: The patient has palpable radial pulses bilaterally that is slightly stronger on the right versus left Extremities: There was no evidence of hypoperfusion. There is no cyanosis or clubbing. There is no edema. Skin: I did not appreciate any rashes on examination today. Data Laboratory Results: Last 24 Hours Test 07/29/17 22:09 07/29/17 22:55 07/30/17 05:11 07/30/17 05:18 Bedside Glucose 124 mg/dl Blood Gas Sample Site Art Line Art Line Bedside Blood Gas pH (LAB) 7.33 7.26 Bedside Blood Gas pCO2 (LAB) 55 mmHg 64 mmHg Bedside Blood Gas pO2 (LAB) 64 mmHg 62 mmHg Bedside Blood Gas HCO3 (LAB) 29 meq/L 29 meq/L Bedside Blood Gas Total CO2 30 mEq/l 31 mEq/l Bedside Blood Gas Base Excess (LAB) 3.0 meq/L 2.0 meq/L Bedside Blood Gas O2 Saturation 89.0 % 87.0 % Elio Test NA NA Oxygen Delivery Device Other Other Bedside FiO2 0 % 0 % White Blood Count 9.22 K/uL Red Blood Count 3.36 M/uL Hemoglobin 9.0 g/dL Hematocrit 30.1 % Mean Corpuscular Volume 89.6 fL Mean Corpuscular Hemoglobin 26.8 pg Mean Corpuscular Hemoglobin Concent 29.9 g/dl RDW Standard Deviation 54.2 fL RDW Coefficient of Variation 16.5 % Platelet Count 179 K/uL Mean Platelet Volume 9.7 fL Prothrombin Time 36.2 SECONDS Prothromb Time International Ratio 3.5 Sodium Level 133 mmol/L Potassium Level 4.2 mmol/L Chloride Level 99 mmol/L Carbon Dioxide Level 30 mmol/L Anion Gap 4.0 mmol/L Blood Urea Nitrogen 22 mg/dl Creatinine 1.85 mg/dl Est Creatinine Clear Calc Drug Dose 40.2 ml/min Estimated GFR () 39.8 Estimated GFR (Non- 34.4 BUN/Creatinine Ratio 11.9 Random Glucose 117 mg/dl Lactic Acid Level 0.7 mmol/L Calcium Level 7.1 mg/dl Phosphorus Level 4.2 mg/dl Magnesium Level 1.8 mg/dl Total Bilirubin 0.6 mg/dl Direct Bilirubin 0.2 mg/dl Aspartate Amino Transf (AST/SGOT) 18 U/L Alanine Aminotransferase (ALT/SGPT) 24 U/L Alkaline Phosphatase 63 U/L Total Protein 6.0 gm/dl Albumin 2.2 gm/dl Procalcitonin 0.48 ng/ml Thyroid Stimulating Hormone (TSH) 2.930 uIu/ml Test 07/30/17 05:27 07/30/17 06:16 07/30/17 09:01 07/30/17 09:12 Bedside Glucose (other) 122 mg/dl Blood Gas Sample Site Art Line Art Line Bedside Blood Gas pH (LAB) 7.19 7.47 Bedside Blood Gas pCO2 (LAB) 76 mmHg 44 mmHg Bedside Blood Gas pO2 (LAB) 71 mmHg 142 mmHg Bedside Blood Gas HCO3 (LAB) 29 meq/L 32 meq/L Bedside Blood Gas Total CO2 31 mEq/l 33 mEq/l Bedside Blood Gas Base Excess (LAB) 1.0 meq/L 8.0 meq/L Bedside Blood Gas O2 Saturation 88.0 % 99.0 % Elio Test NA NA Oxygen Delivery Device BIPAP Ventilator Bedside Oxygen Rate (breaths/min) 12 20 Bedside FiO2 60 % 100 % Blood Gas IPAP 15 Blood Gas Minute Ventilation 8.3 Blood Gas Tidal Volume 500 Blood Gas PEEP 10 Bedside Lactic Acid Arterial 0.86 mmol/L Test 07/30/17 09:48 07/30/17 13:30 07/30/17 15:07 Lactic Acid Level 1.1 mmol/L Urine Color YELLOW Urine Appearance CLOUDY Urine pH 5.0 Urine Specific [place] 1.026 Urine Protein 1+ Urine Glucose (UA) NEG Urine Ketones NEG Urine Occult Blood 1+ Urine Nitrite NEG Urine Bilirubin NEG Urine Urobilinogen NEG Urine Leukocyte Esterase SMALL Urine WBC (Auto) 10-30 /hpf Urine RBC (Auto) 10-30 /hpf Urine Hyaline Casts (Auto) 5-10 /lpf Urine Epithelial Cells (Auto) >30 /lpf Urine Bacteria (Auto) NEG Urine Renal Epithelial Cells /lpf Urine Pathogenic Casts /lpf Urine Yeast (Auto) Sodium Level 131 mmol/L Potassium Level 3.7 mmol/L Chloride Level 95 mmol/L Carbon Dioxide Level 30 mmol/L Anion Gap 6.0 mmol/L Blood Urea Nitrogen 22 mg/dl Creatinine 1.57 mg/dl Est Creatinine Clear Calc Drug Dose 43.3 ml/min Estimated GFR () 48.6 Estimated GFR (Non- 41.9 BUN/Creatinine Ratio 13.7 Random Glucose 153 mg/dl Calcium Level 7.1 mg/dl Phosphorus Level 3.1 mg/dl Albumin 2.1 gm/dl Imaging: CT scan of the thorax suggested bibasilar consolidation. Abdominal CT suggests persistent aneurysmal dilation of the abdominal aorta EKG: Normal sinus rhythm with frequent ventricular ectopy Echocardiogram performed today reveals severely reduced LV systolic function with estimated ejection fraction 25 percent. No wall motion abnormalities. No significant valvular disease. Pulmonary pressures estimated at 30-40 millimeters of mercury. IVC did not appear dilated. Assessment & Plan 1. Shock: Patient has notable hypotension and poor perfusion. He underwent intubation due to hypercapnic and hypoxic respiratory failure. The etiology of his shock is unclear but likely multifactorial. He likely has an element of distributive shock with a history of fevers and likely infection. Became markedly hypotensive with attempts at diuresis. This was suggest the absence of significant intravascular congestion. He has been started on a regimen of pressors and inotropes with good effect. He is making more urine currently and his blood pressure is much better. Hopefully with some time and treatment of suspected infectious process he will become more hemodynamically stable. 2. Congestive heart failure: Patient is noted to have severely reduced LV systolic function. He did not appear to have plethora of the IVC on echocardiogram today. His current CVP is 12 which is slightly elevated but he is also on 10 millimeters of mercury of PEEP. He did not respond well to diuresis before and I do not think this is the optimal time for an attempt at diuresis. He seems to respond much better to fluid administration and pressors. If there continues to be some concern regarding his volume status or if his clinical course deteriorates, we could float a PA catheter for more definitive volume assessment. 3. Atrial flutter: No clinical recurrence. Patient maintained on beta-xavier and warfarin as an outpatient 4. Cardiomyopathy: No significant change on echocardiogram. He is on a good outpatient regimen which is currently on hold due to his hemodynamic instability. 5. Dual-chamber ICD: I did not interrogate this today as a had the wrong senior systems programmer. There was a discussion with the family regarding the patient's wishes in this situation which has currently involved intubation. He has expressed a desire to avoid long-term life support. We will need to consider dizzy activating his ICD if his clinical course declines or does not improve. 6. Valvular heart disease: Patient appears to have a normally functioning bioprosthetic aortic valve. The appearance is abnormal on echocardiogram but the measurements across the valve did not demonstrate any gradient is no significant regurgitation. 7. Coronary artery disease: No current evidence of ischemia. Despite his significant comorbidities and clinical presentation, he has not had any elevation in his cardiac biomarkers.
[2017-07-30] MEDS ORDERED: ALBUT/IPRATROP 3MG/0.5MG NEB 3 ML VIAL INH PRN (18:00)
[2017-07-30] MEDS ORDERED: FUROSEMIDE INJ 80 MG in SYRINGE 0 ML IV ONE (18:30)
[2017-07-30] MEDS ORDERED: NURSING VERBAL MED ORDER ONE (21:15)
[2017-07-30] MEDS: PRAVASTATIN SOD 40 MG TAB PO SCH (21:28)
[2017-07-30] MEDS: DOCUSATE SODIUM 100 MG/10 ML UDC PO SCH (22:19)
--- NOTE | 2017-07-30 23:13 | Procedure Note ---
Procedure Note Date of Service Jul 29, 2017. Procedure Note Critical Care Medicine Point of Care Bedside Ultrasound Procedure: Limited Transthoracic Echocardiogram Indication: Hypotension Date: 07/29/2017 Attending: Henrietta Persaud DO Fellow/Resident/Physician Tattoo Designer: Krystina García Organs Examined: Heart, Vascular system Pericardial fluid: absent Right ventricle size: not visualized LV Contractility: Poor, global hypokinesis, no significant segmental wall motion abnormalities RV Contractility: Not applicable IVC no respiratory variation Mechanically ventilated breaths: No Hemodynamic Status: 90/60, dopamine 10 mcg/kg/m IVC respiratory variation % Spontaneous breaths: Breath yes Intravascular volume status: Hypervolemic Impression: Technically difficult exam limited visualization of the left ventricle. Poor systolic function, no respiratory variation indicative of congestive heart failure and volume overload Plan: Administer diuretics Images obtained are saved for permanent record
[2017-07-31] VITALS (62 sets, daily range): BP systolic 64–151; BP diastolic 41–87; PULSE 86–97; TEMP 37–37.7; O2SAT 91–100
--- NOTE | 2017-07-31 00:18 | Procedure Note ---
Procedure Note Date of Service July 29 2017. Procedure Note Critical Care Medicine Point of Care Bedside Ultrasound Procedure: Limited Bedside Lung Ultrasound Procedure Date: 07/29/2017 Indication: Hypoxic respiratory failure Attending: Henrietta Persaud DO Resident/Physician Mechanical Integrity Specialist: Tony Holly Organs Examined: Lung BLUE point (upper), BLUE point (lower), Phrenic Point (axillary), PLAPS point ( posterior) A lines visualized: N, Hemithorax: BILATERAL B lines visualized: Y, Hemithorax: BILATERAL Lung Sliding: Y, Hemithorax: BILAT Tissue-like Sign: N, Hemithorax: BILATERAL Shred Sign: N, Hemithorax: BILATERAL Quad Sign: N, Hemithorax: BILATERAL Sinusoid Sign: N, Hemithorax: BILATERAL Type of effusions: NA, Hemithorax: BILATERAL Interpleural distance: NA Impression: Type B profile bilaterally Plan: Administer diuretics Images obtained are saved for permanent record
[2017-07-31] MEDS ORDERED: VANCOMYCIN TROUGH ONE (01:30)
[2017-07-31] MEDS ORDERED: VANCOMYCIN INJ 1,500 MG in SODIUM CHLORIDE 0.9% 500ML 500 ML IV SCH (02:00)
[2017-07-31] MEDS: DOBUTamine / D5W 500 MG IV PRN ×3 (04:05→22:30)
[2017-07-31] MEDS: VASOPRESSIN INJ 50 UNITS in SODIUM CHLORIDE 0.9% 500ML 500 ML IV SCH (05:46)
[2017-07-31] MEDS: PIPERACILL/TAZOBAC IV 3.375 GM in DEXTROSE 5% 100ML 100 ML IV SCH ×3 (05:46→20:57)
[2017-07-31] MEDS: LEVOTHYROXINE 25 MCG TAB PO SCH (05:47)
[2017-07-31 06:08] LABS: INR 6.1 (0.9-1.1)
[2017-07-31 06:15] LABS: HEMATOCRIT 28.7 % (42-52); HEMOGLOBIN 8.9 g/dL (14.0-18.0); MEAN CELL VOLUME 84.4 fL (80-100); MEAN CORPUSCULAR HEMOGLOBIN 26.2 pg (25-34); MEAN PLATELET VOLUME 11.1 fL (7.4-10.4); PLATELET COUNT 202 K/uL (130-400); RED CELL DISTRIBUTION WIDTH CV 16.1 % (11.5-14.5); RED CELL DISTRIBUTION WIDTH SD 49.8 fL (36.4-46.3); WHITE BLOOD COUNT 7.74 K/uL (4.8-10.8)
[2017-07-31 06:16] LABS: CALCIUM 7.1 mg/dl (8.5-10.1); CREATININE 1.27 mg/dl (0.60-1.40); POTASSIUM 3.4 mmol/L (3.5-5.1)
[2017-07-31 06:18] LABS: PHOSPHORUS 2.4 mg/dl (2.5-4.9)
--- NOTE | 2017-07-31 07:02 | DIAGNOSTIC IMAGING REPORT ---
CHEST ONE VIEW PORTABLE CLINICAL HISTORY: Respiratory failure COMPARISON STUDY: 07/30/2017 FINDINGS: The heart remains enlarged. There is radiographic evidence of congestive failure/fluid overload. There is a nasogastric tube which passes into the stomach. There is a left subclavian dual-chamber pacer/defibrillator. There is a right internal jugular central venous catheter. There is an endotracheal tube which is positioned 6 cm above the holly. There are postsurgical changes of a midline sternotomy. There is persistent left lower lobe atelectasis/consolidation. Associated small effusion cannot be excluded. Minor right basilar airspace opacities remain similar. IMPRESSION: 1. Persistent cardiomegaly with radiographic evidence of congestive failure/fluid overload 2. Persistent bibasal airspace opacities left greater than right. Electronically signed by: Hernando Du M.D. 07/31/2017 7:01 AM Dictated Date/Time: 07/31/2017 6:59 AM
[2017-07-31] MEDS ORDERED: VANCOMYCIN INJ 1,750 MG in SODIUM CHLORIDE 0.9% 500ML 500 ML IV SCH (07:15)
[2017-07-31] MEDS ORDERED: POTASSIUM CHLR 10MEQ / WTR IV SCH (08:45)
[2017-07-31] MEDS ORDERED: FUROSEMIDE INJ 40 MG in SYRINGE 0 ML IV ONE (08:45)
[2017-07-31] MEDS ORDERED: POTASSIUM PHOSPHATE INJ 21 MMOL in SODIUM CHLORIDE 0.9% 500ML 500 ML IV ONE (08:45)
--- NOTE | 2017-07-31 08:58 | Nephrology Progress Note ---
Nephrology Progress Note Date of Service Jul 31, 2017. Chief Complaint Acute renal insufficiency, CHF Subjective Mr. Garcia remains intubated. He is resting comfortably on CPAP. He denies pain. No fevers overnight. Remains on dobutamine, levophed and vaso gtts. BP acceptable. Vasopressor support is being weaned. Levo currently at 0.03 mcg/kg/ min. UOP improved. Negative fluid balance documented for this AM (750/1100). Review of Systems A complete review of systems was unable to be performed due to ventilator dependent. Pertinent positives are noted above. All other systems are negative. Vital Signs Last 8 Hrs Date Time Temp Pulse Resp B/P (MAP) Pulse Ox O2 Delivery O2 Flow Rate FiO2 07/31/17 06:15 97 23 126/61 (77) 97 90/48 (66) 07/31/17 06:00 96 19 137/73 (95) 99 88/48 07/31/17 05:45 97 15 139/66 (96) 99 87/47 07/31/17 05:30 97 20 123/57 (76) 91 64/41 07/31/17 05:30 55 07/31/17 05:15 94 20 137/68 (90) 97 98/52 07/31/17 05:00 96 20 134/68 (96) 99 99/53 (73) 07/31/17 04:45 94 20 142/63 (96) 97 96/51 (66) 07/31/17 04:30 91 20 142/67 (95) 99 103/53 (74) 07/31/17 04:30 55 07/31/17 04:15 94 23 140/68 (99) 97 96/52 (71) 07/31/17 04:01 37.4 90 26 147/73 (67) 97 97/45 (66) 07/31/17 04:00 Mechanical Ventilator 60 07/31/17 04:00 55 07/31/17 03:45 90 20 150/74 (108) 98 107/52 (75) 07/31/17 03:30 92 21 141/73 (94) 98 100/54 (74) 07/31/17 03:15 93 20 145/71 (92) 98 96/50 (69) 07/31/17 03:00 93 21 139/71 (92) 97 96/50 (68) 07/31/17 02:45 93 20 139/67 (88) 96 91/49 (67) 07/31/17 02:30 94 20 131/70 (86) 95 91/48 (66) 07/31/17 02:15 95 20 151/79 (103) 98 106/54 (78) 07/31/17 02:00 89 20 139/65 (105) 98 96/51 (70) 07/31/17 01:45 95 22 139/67 (92) 98 87/49 (65) 07/31/17 01:37 94 18 109/58 (59) 94 75/43 (70) 07/31/17 01:31 96 21 108/56 (62) 94 77/49 (65) 07/31/17 01:26 96 23 120/60 (72) 77/48 (61) 07/31/17 01:22 55 07/31/17 01:16 92 24 141/74 (70) 97 87/55 (72) 07/31/17 01:01 97 25 117/64 (64) 95 84/49 (64) 07/31/17 00:46 91 20 134/70 (80) 97 112/58 (77) Last Recorded Weight Weight (Kilograms): 92.100 Physical Exam General Appearance: WD/WN, no apparent distress Head: normocephalic, atraumatic Eyes: normal inspection, sclerae normal ENT: normal ENT inspection, pharynx normal Neck: supple, + JVD Respiratory/Chest: lungs clear, no respiratory distress Cardiovascular: regular rate, rhythm, no gallop Abdomen/GI: non tender, soft, + distended Genitourinary - Male: + pertinent finding (Sandoval draining clear yellow urine) Neurologic/Psych: alert, + pertinent finding (intubated) Family History Patient reports no known family medical history. Social History Smoking Status: Former smoker Drug Use: none Marital Status: Housing Status: lives with family Occupation: retired Laboratory Results Past 24 Hours 07/31/17 05:26 07/30/17 15:07 07/31/17 05:26 Test 07/30/17 09:01 07/30/17 09:12 07/30/17 09:48 07/30/17 13:30 Blood Gas Sample Site Art Line Bedside Blood Gas pH (LAB) 7.47 (7.35-7.45) Bedside Blood Gas pCO2 (LAB) 44 mmHg (35-46) Bedside Blood Gas pO2 (LAB) 142 mmHg (80-95) Bedside Blood Gas HCO3 (LAB) 32 meq/L (19-24) Bedside Blood Gas Total CO2 33 mEq/l (24-31) Bedside Blood Gas Base Excess (LAB) 8.0 meq/L (-9-1.8) Bedside Blood Gas O2 Saturation 99.0 % (90-95) Elio Test NA Oxygen Delivery Device Ventilator Bedside Oxygen Rate (breaths/min) 20 Blood Gas Minute Ventilation 8.3 Bedside FiO2 100 % Blood Gas Tidal Volume 500 Blood Gas PEEP 10 Bedside Lactic Acid Arterial 0.86 mmol/L (0.36-1.25) Lactic Acid Level 1.1 mmol/L (0.4-2.0) Urine Color YELLOW Urine Appearance CLOUDY (CLEAR) Urine pH 5.0 (4.5-7.5) Urine Specific Zeigler 1.026 (1.000-1.030) Urine Protein 1+ (NEG) Urine Glucose (UA) NEG (NEG) Urine Ketones NEG (NEG) Urine Occult Blood 1+ (NEG) Urine Nitrite NEG (NEG) Urine Bilirubin NEG (NEG) Urine Urobilinogen NEG (NEG) Urine Leukocyte Esterase SMALL (NEG) Urine WBC (Auto) 10-30 /hpf (0-5) Urine RBC (Auto) 10-30 /hpf (0-4) Urine Hyaline Casts (Auto) 5-10 /lpf (0-5) Urine Epithelial Cells (Auto) >30 /lpf (0-5) Urine Bacteria (Auto) NEG (NEG) Urine Renal Epithelial Cells /lpf (0-5) Urine Pathogenic Casts /lpf (0) Urine Yeast (Auto) (NONE PRSENT) Test 07/30/17 15:07 07/30/17 20:49 07/31/17 01:31 07/31/17 01:34 Anion Gap 6.0 mmol/L (3-11) Est Creatinine Clear Calc Drug Dose 43.3 ml/min Estimated GFR () 48.6 Estimated GFR (Non- 41.9 BUN/Creatinine Ratio 13.7 (10-20) Calcium Level 7.1 mg/dl (8.5-10.1) Phosphorus Level 3.1 mg/dl (2.5-4.9) Albumin 2.1 gm/dl (3.4-5.0) Bedside Glucose 138 mg/dl (70-99) 152 mg/dl (70-99) Vancomycin Level Trough 15.4 mcg/ml (SEE COMMENT) Test 07/31/17 05:26 07/31/17 05:29 07/31/17 06:19 07/31/17 08:33 Red Blood Count 3.40 M/uL (4.7-6.1) Mean Corpuscular Volume 84.4 fL (80-100) Mean Corpuscular Hemoglobin 26.2 pg (25-34) Mean Corpuscular Hemoglobin Concent 31.0 g/dl (32-36) RDW Standard Deviation 49.8 fL (36.4-46.3) RDW Coefficient of Variation 16.1 % (11.5-14.5) Mean Platelet Volume 11.1 fL (7.4-10.4) Prothrombin Time 62.2 SECONDS (9.0-12.0) Prothromb Time International Ratio 6.1 (0.9-1.1) Anion Gap 6.0 mmol/L (3-11) Est Creatinine Clear Calc Drug Dose 53.5 ml/min Estimated GFR () 62.7 Estimated GFR (Non- 54.1 BUN/Creatinine Ratio 13.8 (10-20) Calcium Level 7.1 mg/dl (8.5-10.1) Phosphorus Level 2.4 mg/dl (2.5-4.9) Magnesium Level 2.1 mg/dl (1.8-2.4) Bedside Glucose 135 mg/dl (70-99) Blood Gas Sample Site L Radial Bedside Blood Gas pH (LAB) 7.45 (7.35-7.45) Bedside Blood Gas pCO2 (LAB) 49 mmHg (35-46) Bedside Blood Gas pO2 (LAB) 88 mmHg (80-95) Bedside Blood Gas HCO3 (LAB) 34 meq/L (19-24) Bedside Blood Gas Total CO2 35 mEq/l (24-31) Bedside Blood Gas Base Excess (LAB) 10.0 meq/L (-9-1.8) Bedside Blood Gas O2 Saturation 97.0 % (90-95) Elio Test NA Oxygen Delivery Device Ventilator Bedside FiO2 55 % Blood Gas PEEP 5 Allergies Coded Allergies: Adhesives (Verified Allergy, Unknown, removed skin, 06/24/17) Medications Current Inpatient Medications Medications (Trade) Dose Ordered Sig/Deion Route Start Time Stop Time Status Last Admin Dose Admin Amiodarone HCl (Cordarone Tab) 200 mg QAM PO 07/29/17 09:00 08/28/17 08:59 07/30/17 09:13 200 MG Ascorbic Acid (Vitamin C Tab) 500 mg QAM PO 07/29/17 09:00 08/28/17 08:59 07/30/17 09:13 500 MG Levothyroxine Sodium (Synthroid Tab) 25 mcg DAILYBB PO 07/29/17 06:30 08/28/17 06:59 07/31/17 05:47 25 MCG Pravastatin Sodium (Pravachol Tab) 40 mg HS PO 07/29/17 21:00 08/28/17 20:59 07/30/17 21:28 40 MG Warfarin Sodium (Coumadin Tab) 5 mg DAILY@16 PO 07/29/17 16:00 08/28/17 15:59 Future Hold 07/29/17 16:36 5 MG Acetaminophen (Tylenol Tab) 650 mg Q4H PRN PO 07/28/17 22:00 08/27/17 21:59 07/30/17 03:11 650 MG Al Hydrox/Mg Hydrox/Simethicone (Maalox Max Susp) 15 ml Q4H PRN PO 07/28/17 22:00 08/27/17 21:59 Magnesium Hydroxide (Milk Of Magnesia Susp) 30 ml Q6H PRN PO 07/28/17 22:00 08/27/17 21:59 Polyethylene (Miralax Powder Packet) 17 gm DAILY PRN PO 07/28/17 22:00 08/27/17 21:59 Ondansetron HCl (Zofran Inj) 4 mg Q6H PRN IV 07/28/17 22:00 08/27/17 21:59 Miscellaneous (Iv Fluids Completed) 1 ea PRN PRN N/A 07/29/17 02:30 07/29/18 02:29 Piperacillin Sod/ Tazobactam Sod 3.375 gm/Dextrose 115 ml @ 28.75 mls/ hr Q8H IV 07/29/17 22:00 08/08/17 21:59 07/31/17 05:46 28.75 MLS/HR Miscellaneous Information (Consult) 1 ea UD PRN N/A 07/29/17 16:00 08/28/17 15:59 Miscellaneous Information (Consult) 1 ea UD PRN N/A 07/29/17 16:00 08/28/17 15:59 Dopamine HCl/ Dextrose 0 ml @ 0 mls/hr Q0M PRN IV 07/29/17 20:23 08/28/17 20:22 Dobutamine HCl 0 ml @ 0 mls/hr Q0M PRN IV 07/30/17 00:08 08/29/17 00:07 07/31/17 04:05 30.7 MLS/HR Norepinephrine Bitartrate 8 mg/ Dextrose 508 ml @ 0 mls/hr Q0M PRN IV 07/30/17 05:05 08/29/17 05:04 07/30/17 17:55 24 MLS/HR Midazolam HCl (Versed Inj) 2 mg Q2H PRN IV 07/30/17 08:45 08/29/17 08:44 07/30/17 11:34 2 MG Fentanyl Citrate (Fentanyl Inj) 100 mcg Q2H PRN IV 07/30/17 08:45 08/13/17 08:44 07/30/17 13:55 100 MCG Vasopressin 50 units/Sodium Chloride 502.5 ml @ 24 mls/hr [id number] IV 07/30/17 08:45 08/29/17 08:44 07/31/17 05:46 24 MLS/HR Pantoprazole Sodium 40 mg/ Syringe 10 ml @ 5 mls/min DAILY@11 IV 07/30/17 11:00 08/29/17 10:59 Aspirin (Aspirin Chew) 81 mg QAM PO 07/31/17 09:00 08/30/17 08:59 Albuterol/ Ipratropium (Duoneb) 3 ml QIDR PRN INH 07/30/17 18:00 08/29/17 17:59 Docusate Sodium (coLACE SYRUP) 100 mg QPM PO 07/30/17 21:30 08/29/17 21:29 07/30/17 22:19 100 MG Vancomycin HCl 1750 mg/Sodium Chloride 535 ml @ 200 mls/hr Q24H IV 2/1/18 07:15 08/06/17 07:14 07/31/17 07:47 200 MLS/HR Furosemide 40 mg/ Syringe 4 ml @ 4 mls/min ONE ONCE IV 07/31/17 08:45 07/31/17 08:46 Potassium Chloride 10 meq/ Prmx 100 ml @ 100 mls/hr Q1H IV 07/31/17 08:45 07/31/17 12:44 Potassium Phosphate 21 mmol/ Sodium Chloride 507 ml @ 144.857 mls/hr ONE ONCE IV 07/31/17 08:45 07/31/17 12:14 Impression (1) Acute on chronic renal insufficiency (2) Acute on chronic systolic CHF (congestive heart failure) (3) Cardiogenic shock (4) Acute respiratory failure with hypoxia and hypercapnia Mr. Garcia is a critically ill 77-year-old male with acute on chronic renal insufficiency in the setting of cardiogenic shock. Cannot exclude potential septic component; repeat cultures from yesterday pending. I did not evaluate the patient's sacral decubitus ulcer. He has acute on chronic systolic CHF. Urine output is acceptable. The patient is on ionotropic and vasopressor support. Metabolic profile is otherwise acceptable and there is no acute indication for dialysis at this time. Primary goal at this time include improving respiratory status to allow weaning from vent. CXR reviewed this morning. There is persistent evidence of hypervolemia and I would continue to maintain slightly negative fluid balance. Metabolic profile should be monitored q 12 hours. Recommendations SANTHOSH: -- Creatinine stable -- Urine output appropriate -- Volume status improving and ventilator support as well as vasopressor support are currently being weaned -- Metabolic profile is otherwise acceptable -- Medications are appropriately dosed for renal function -- Maintain Sandoval to gravity for chronic urinary retention Renal cysts: -- Will require outpatient urology follow up
[2017-07-31 09:03] LABS: INR 6.1 (0.9-1.1)
[2017-07-31] MEDS: AMIODARONE 200 MG TAB PO SCH (09:07)
[2017-07-31] MEDS: ASCORBIC ACID 500 MG TAB PO SCH (09:08)
[2017-07-31] MEDS: ASPIRIN 81 MG CHEW PO SCH (09:08)
[2017-07-31] MEDS ORDERED: POTASSIUM CHLR 20MEQ / WTR IV SCH (09:30)
[2017-07-31] MEDS: POTASSIUM CHLR 20MEQ / WTR IV SCH ×2 (09:36→11:35)
[2017-07-31] MEDS: PANTOprazole INJ 40 MG in SYRINGE 0 ML IV SCH (10:38)
[2017-07-31 14:28] LABS: CREATININE 1.15 mg/dl (0.60-1.40); POTASSIUM 3.9 mmol/L (3.5-5.1)
--- NOTE | 2017-07-31 14:53 | Hospitalist Progress Note ---
Hospitalist Progress Note Date of Service Jul 31, 2017. (Paulette Palumbo PA-C) Subjective Pt evaluation today including: conversation w/ patient, physical exam, chart review, lab review, review of studies, conversation w/ c consultant (Intensivists) , review of inpatient medication list Voiding: suggs catheter in place Patient seen and evaluated. No acute events overnight. Has been converted to CPAP setting on ventilator. Patient easily awakes to verbal stimuli. Tolerating tube at this time. Shakes yes/no to questions. Denies pain. Continues to wean from vent and pressor support. Urine output continues to be adequate. Acidosis is improving. INR is supratherapeutic without signs of bleeding. Additional Comments: ROS: General/Constitutional: Denies fever/chills Cardiovascular: Denies chest pain Respiratory: Denies feelings of SOB or intolerance to vent/CPAP setting GI: Denies nausea, vomiting, abdominal pain : Denies dysuria Musculoskeletal: Denies joint/muscle aches Neurologic: Denies dizziness/lightheadedness Skin: Denies itch (Paulette Palumbo PA-C) Medications Current Inpatient Medications Medications (Trade) Dose Ordered Sig/Deion Route Start Time Stop Time Status Last Admin Dose Admin Amiodarone HCl (Cordarone Tab) 200 mg QAM PO 07/29/17 09:00 08/28/17 08:59 07/31/17 09:07 200 MG Ascorbic Acid (Vitamin C Tab) 500 mg QAM PO 07/29/17 09:00 08/28/17 08:59 07/31/17 09:08 500 MG Levothyroxine Sodium (Synthroid Tab) 25 mcg DAILYBB PO 07/29/17 06:30 08/28/17 06:59 07/31/17 05:47 25 MCG Pravastatin Sodium (Pravachol Tab) 40 mg HS PO 07/29/17 21:00 08/28/17 20:59 07/30/17 21:28 40 MG Warfarin Sodium (Coumadin Tab) 5 mg DAILY@16 PO 07/29/17 16:00 08/28/17 15:59 Future Hold 07/29/17 16:36 5 MG Acetaminophen (Tylenol Tab) 650 mg Q4H PRN PO 07/28/17 22:00 08/27/17 21:59 07/30/17 03:11 650 MG Al Hydrox/Mg Hydrox/Simethicone (Maalox Max Susp) 15 ml Q4H PRN PO 07/28/17 22:00 08/27/17 21:59 Magnesium Hydroxide (Milk Of Magnesia Susp) 30 ml Q6H PRN PO 07/28/17 22:00 08/27/17 21:59 Polyethylene (Miralax Powder Packet) 17 gm DAILY PRN PO 07/28/17 22:00 08/27/17 21:59 Ondansetron HCl (Zofran Inj) 4 mg Q6H PRN IV 07/28/17 22:00 08/27/17 21:59 Miscellaneous (Iv Fluids Completed) 1 ea PRN PRN N/A 07/29/17 02:30 07/29/18 02:29 Piperacillin Sod/ Tazobactam Sod 3.375 gm/Dextrose 115 ml @ 28.75 mls/ hr Q8H IV 07/29/17 22:00 08/13/17 21:59 07/31/17 13:40 28.75 MLS/HR Miscellaneous Information (Consult) 1 ea UD PRN N/A 07/29/17 16:00 08/13/17 15:59 Miscellaneous Information (Consult) 1 ea UD PRN N/A 07/29/17 16:00 08/28/17 15:59 Dopamine HCl/ Dextrose 0 ml @ 0 mls/hr Q0M PRN IV 07/29/17 20:23 08/28/17 20:22 Dobutamine HCl 0 ml @ 0 mls/hr Q0M PRN IV 07/30/17 00:08 08/29/17 00:07 07/31/17 11:53 30.7 MLS/HR Norepinephrine Bitartrate 8 mg/ Dextrose 508 ml @ 0 mls/hr Q0M PRN IV 07/30/17 05:05 08/29/17 05:04 07/30/17 17:55 24 MLS/HR Midazolam HCl (Versed Inj) 2 mg Q2H PRN IV 07/30/17 08:45 08/29/17 08:44 07/30/17 11:34 2 MG Fentanyl Citrate (Fentanyl Inj) 100 mcg Q2H PRN IV 07/30/17 08:45 08/13/17 08:44 07/30/17 13:55 100 MCG Vasopressin 50 units/Sodium Chloride 502.5 ml @ 24 mls/hr [id number] IV 07/30/17 08:45 08/29/17 08:44 07/31/17 05:46 24 MLS/HR Pantoprazole Sodium 40 mg/ Syringe 10 ml @ 5 mls/min DAILY@11 IV 07/30/17 11:00 08/29/17 10:59 07/31/17 10:38 5 MLS/MIN Aspirin (Aspirin Chew) 81 mg QAM PO 07/31/17 09:00 08/30/17 08:59 07/31/17 09:08 81 MG Albuterol/ Ipratropium (Duoneb) 3 ml QIDR PRN INH 07/30/17 18:00 08/29/17 17:59 Docusate Sodium (coLACE SYRUP) 100 mg QPM PO 07/30/17 21:30 08/29/17 21:29 07/30/17 22:19 100 MG Vancomycin HCl 1750 mg/Sodium Chloride 535 ml @ 200 mls/hr Q24H IV 07/31/17 07:15 08/06/17 07:14 07/31/17 07:47 200 MLS/HR (Paulette Palumbo, JUHI) Objective Vital Signs Date Time Temp Pulse Resp B/P (MAP) Pulse Ox O2 Delivery O2 Flow Rate FiO2 07/31/17 12:30 88 14 136/65 (88) 97 07/31/17 12:00 55 07/31/17 12:00 37.1 89 22 133/65 (87) 97 CPAP 55 07/31/17 12:00 CPAP 55 07/31/17 11:30 92 18 140/69 (92) 100 CPAP 55 07/31/17 11:15 91 122/61 (81) 98 CPAP 55 07/31/17 11:00 89 22 119/59 (79) 96 CPAP 55 07/31/17 10:45 92 124/57 (79) 98 CPAP 55 07/31/17 10:30 86 119/58 (78) 96 CPAP 55 07/31/17 10:15 95 25 117/61 (79) 96 CPAP 55 07/31/17 10:00 94 27 119/55 (76) 100 CPAP 55 07/31/17 09:45 92 14 127/62 (83) 98 CPAP 55 07/31/17 09:30 93 132/63 (86) 97 CPAP 55 07/31/17 09:15 93 133/71 (91) 97 CPAP 55 07/31/17 09:00 94 20 126/69 (88) 99 CPAP 55 07/31/17 08:45 94 118/63 (81) 99 CPAP 55 07/31/17 08:30 89 22 137/67 (90) 99 CPAP 55 07/31/17 08:15 90 13 132/59 (83) 98 CPAP 55 07/31/17 08:00 37.0 95 24 120/59 (79) 99 CPAP 55 07/31/17 08:00 CPAP 55 07/31/17 08:00 55 07/31/17 08:00 Mechanical Ventilator 100 07/31/17 07:45 93 26 124/62 (82) 99 CPAP 55 07/31/17 07:30 95 125/59 (81) 98 CPAP 55 07/31/17 07:15 93 23 133/65 (87) 97 CPAP 55 07/31/17 07:00 97 21 129/59 (82) 97 07/31/17 06:15 97 23 126/61 (77) 97 90/48 (66) 07/31/17 06:00 96 19 137/73 (95) 99 88/48 07/31/17 05:45 97 15 139/66 (96) 99 87/47 07/31/17 05:30 97 20 123/57 (76) 91 64/41 07/31/17 05:30 55 07/31/17 05:15 94 20 137/68 (90) 97 98/52 07/31/17 05:00 96 20 134/68 (96) 99 99/53 (73) 07/31/17 04:45 94 20 142/63 (96) 97 96/51 (66) 07/31/17 04:30 91 20 142/67 (95) 99 103/53 (74) 07/31/17 04:30 55 07/31/17 04:15 94 23 140/68 (99) 97 96/52 (71) 07/31/17 04:01 37.4 90 26 147/73 (67) 97 97/45 (66) 07/31/17 04:00 Mechanical Ventilator 60 07/31/17 04:00 55 07/31/17 03:45 90 20 150/74 (108) 98 107/52 (75) 07/31/17 03:30 92 21 141/73 (94) 98 100/54 (74) 07/31/17 03:15 93 20 145/71 (92) 98 96/50 (69) 07/31/17 03:00 93 21 139/71 (92) 97 96/50 (68) 07/31/17 02:45 93 20 139/67 (88) 96 91/49 (67) 07/31/17 02:30 94 20 131/70 (86) 95 91/48 (66) 07/31/17 02:15 95 20 151/79 (103) 98 106/54 (78) 07/31/17 02:00 89 20 139/65 (105) 98 96/51 (70) 07/31/17 01:45 95 22 139/67 (92) 98 87/49 (65) 07/31/17 01:37 94 18 109/58 (59) 94 75/43 (70) 07/31/17 01:31 96 21 108/56 (62) 94 77/49 (65) 07/31/17 01:26 96 23 120/60 (72) 77/48 (61) 07/31/17 01:22 55 07/31/17 01:16 92 24 141/74 (70) 97 87/55 (72) 07/31/17 01:01 97 25 117/64 (64) 95 84/49 (64) 07/31/17 00:46 91 20 134/70 (80) 97 112/58 (77) 07/31/17 00:31 92 20 135/87 (71) 96 98/53 (71) 07/31/17 00:16 90 20 123/63 (70) 96 95/52 (65) 07/31/17 00:01 37.7 91 20 136/58 (69) 96 94/51 (72) 07/31/17 00:01 60 07/31/17 00:01 Mechanical Ventilator 60 07/30/17 23:46 92 20 127/62 (68) 96 90/50 (69) 07/30/17 23:31 91 20 126/65 (68) 96 93/50 (70) 07/30/17 23:16 90 20 130/67 (70) 96 95/51 (70) 07/30/17 23:01 94 21 137/68 (73) 96 100/53 (71) 07/30/17 22:46 90 20 134/65 (69) 96 93/50 (69) 07/30/17 22:31 93 20 133/63 (71) 96 97/53 (72) 07/30/17 22:24 55 07/30/17 22:16 91 20 140/64 (71) 96 96/53 (70) 07/30/17 22:01 93 21 145/69 (78) 97 108/57 (77) 07/30/17 21:46 94 20 140/74 (77) 97 106/57 (78) 07/30/17 21:46 94 20 140/74 (77) 97 106/57 (74) 07/30/17 21:31 89 20 142/67 (75) 97 103/56 (76) 07/30/17 21:16 91 20 142/69 (73) 97 99/55 (73) 07/30/17 21:01 91 20 131/63 (66) 96 89/50 (68) 07/30/17 20:46 92 20 135/68 (70) 96 94/52 (68) 07/30/17 20:31 91 20 129/60 (68) 96 89/51 (69) 07/30/17 20:16 91 20 137/65 (74) 97 100/54 (71) 07/30/17 20:01 37.9 90 20 137/66 (72) 96 98/53 (76) 07/30/17 20:00 Mechanical Ventilator 60 07/30/17 20:00 60 07/30/17 19:46 90 20 125/70 (57) 96 80/41 (70) 07/30/17 19:31 92 20 116/62 (68) 96 87/54 (71) 07/30/17 19:16 90 21 160/73 (92) 99 127/67 (80) 07/30/17 19:12 55 07/30/17 19:01 92 20 141/72 (85) 100 120/62 (88) 07/30/17 18:30 89 20 108/59 (75) 98 07/30/17 18:15 92 21 106/58 (74) 98 07/30/17 18:00 37.5 89 20 126/65 (85) 98 07/30/17 17:48 60 07/30/17 17:46 88 20 107/58 (74) 97 07/30/17 17:45 90 20 104/58 (73) 97 07/30/17 17:31 89 20 124/64 (84) 99 07/30/17 17:30 91 20 116/61 (79) 99 07/30/17 17:01 88 20 119/63 (81) 98 07/30/17 17:00 37.3 88 20 118/63 (81) 98 07/30/17 16:46 87 20 128/67 (87) 99 07/30/17 16:45 89 20 129/67 (87) 99 07/30/17 16:31 88 20 116/63 (80) 98 07/30/17 16:30 88 20 124/66 (85) 98 07/30/17 16:16 91 22 127/70 (89) 100 07/30/17 16:15 91 20 135/71 (92) 100 07/30/17 16:00 60 07/30/17 16:00 37.3 90 20 145/69 (94) 98 Mechanical Ventilator 60 07/30/17 16:00 Mechanical Ventilator 60 07/30/17 15:45 90 15 112/67 (82) 96 07/30/17 15:30 86 21 120/64 (82) 98 07/30/17 15:15 86 20 128/66 (86) 99 07/30/17 15:00 86 20 90/66 (74) 98 07/30/17 14:45 87 20 97/69 (78) 98 (Paulette Palumbo, RUDDYC) Physical Exam Notes: General Appearance: WDWN in NAD who is alert and intubated HEENT: Head is normocephalic/atraumatic; ET tube placed Neck: Supple; Trachea midline; Neg JVD Heart: RRR with systolic murmur Lungs: Good aeration with ausculation of anterior chest; Respirations unlabored ; Neg accessory muscle use Abdomen: Soft, non-tender, non-distended; Positive BS x 4 quadrants Extremities: fingertips/toes warm to touch, good cap refill, no cyanosis Neurological: Neg focal neurologic deficits Psychiatric: Appropriate mood/affect Skin: Normal Color; Warm/Dry (Paulette Palumbo, JUHI) Laboratory Results Last 24 Hours Test 07/30/17 15:07 07/30/17 20:49 07/31/17 01:31 07/31/17 01:34 Sodium Level 131 mmol/L Potassium Level 3.7 mmol/L Chloride Level 95 mmol/L Carbon Dioxide Level 30 mmol/L Anion Gap 6.0 mmol/L Blood Urea Nitrogen 22 mg/dl Creatinine 1.57 mg/dl Est Creatinine Clear Calc Drug Dose 43.3 ml/min Estimated GFR () 48.6 Estimated GFR (Non- 41.9 BUN/Creatinine Ratio 13.7 Random Glucose 153 mg/dl Calcium Level 7.1 mg/dl Phosphorus Level 3.1 mg/dl Albumin 2.1 gm/dl Bedside Glucose 138 mg/dl 152 mg/dl Vancomycin Level Trough 15.4 mcg/ml Test 07/31/17 05:26 07/31/17 05:29 07/31/17 06:19 07/31/17 08:33 White Blood Count 7.74 K/uL Red Blood Count 3.40 M/uL Hemoglobin 8.9 g/dL Hematocrit 28.7 % Mean Corpuscular Volume 84.4 fL Mean Corpuscular Hemoglobin 26.2 pg Mean Corpuscular Hemoglobin Concent 31.0 g/dl RDW Standard Deviation 49.8 fL RDW Coefficient of Variation 16.1 % Platelet Count 202 K/uL Mean Platelet Volume 11.1 fL Prothrombin Time 62.2 SECONDS 61.6 SECONDS Prothromb Time International Ratio 6.1 6.1 Sodium Level 129 mmol/L Potassium Level 3.4 mmol/L Chloride Level 92 mmol/L Carbon Dioxide Level 31 mmol/L Anion Gap 6.0 mmol/L Blood Urea Nitrogen 18 mg/dl Creatinine 1.27 mg/dl Est Creatinine Clear Calc Drug Dose 53.5 ml/min Estimated GFR () 62.7 Estimated GFR (Non- 54.1 BUN/Creatinine Ratio 13.8 Random Glucose 128 mg/dl Calcium Level 7.1 mg/dl Phosphorus Level 2.4 mg/dl Magnesium Level 2.1 mg/dl Bedside Glucose 135 mg/dl Blood Gas Sample Site L Radial Bedside Blood Gas pH (LAB) 7.45 Bedside Blood Gas pCO2 (LAB) 49 mmHg Bedside Blood Gas pO2 (LAB) 88 mmHg Bedside Blood Gas HCO3 (LAB) 34 meq/L Bedside Blood Gas Total CO2 35 mEq/l Bedside Blood Gas Base Excess (LAB) 10.0 meq/L Bedside Blood Gas O2 Saturation 97.0 % Elio Test NA Oxygen Delivery Device Ventilator Bedside FiO2 55 % Blood Gas PEEP 5 Test 07/31/17 13:54 Sodium Level 131 mmol/L Potassium Level 3.9 mmol/L Chloride Level 93 mmol/L Carbon Dioxide Level 31 mmol/L Anion Gap 7.0 mmol/L Blood Urea Nitrogen 15 mg/dl Creatinine 1.15 mg/dl Est Creatinine Clear Calc Drug Dose 59.0 ml/min Estimated GFR () 70.7 Estimated GFR (Non- 61.0 BUN/Creatinine Ratio 13.0 Random Glucose 125 mg/dl Calcium Level 7.0 mg/dl (Paulette Palumbo, PAKuldipC) Assessment and Plan Mr. Garcia is a 77 year old man here for increased weakness Acute Hypoxic Hypercarbic Respiratory Failure 2/2 Acute on Chronic Systolic CHF and Multifocal Pneumonia - HCAP Coverage: IMPROVING - Patient was intubated on 07/30 and respiratory acidosis improving on subsequent draws and continues to wean was on CPAP setting this AM - Zosyn and Vancomycin - Currently at a slight negative fluid balance - Infectious Disease following - plan as above - Intensivists following - appreciate management Severe Sepsis with Septic Shock with Possible Cardiogenic Shock: Multifocal PNA vs Urinary Source vs CHF: - Currently in ICU on pressor support - appreciate management by intensivists - vitals improving and urine output improving, inotropic/pressor support continue to wean SANTHOSH on CKD Stage III: RESOLVED - Nephrology following - appreciate recommendations - avoid nephrotoxins and maintain a slight negative fluid balance Hyperkalemia: RESOLVED - Appears that he continued supplementation despite DC of Bumex at [facility] CAD S/P CABG; AAA/Aortic Dissection; S/P ICD/Pacer; Acute Systolic CHF; Atrial Fibrillation: Supratherapeutic INR - Has bovine valve - INR goal 2-3 - Amiodarone 200 mg daily, Pravastatin 40 mg daily, and ASA 81 mg daily - Hold Toprol XL and Ramipril; Hold Coumadin 2/2 supratherapeutic INR and trend as there is no signs of active bleeding H/O Transverse Myelitis: STABLE - Weakness does not appear to be related to this - Neuro was consulted DVT Prophylaxis: Supratherapeutic INR Code Status: DO NOT RESUSCITATE - Consented for intubation Disposition: - Await clinical course; Palliative care consulted - Patient is progressing with goal for respiratory support wean, optimistic at this time for recovery Continued [facility] stay due to: multiple IV medications needed Discharge planning: uncertain (Paulette Palumbo, JUHI) Reviewed: Pt Seen/Exam by Me (Yoli Graves DO) History Pt is doing quite well this afternoon. The vent is off and he is breathing on his own. He has been interacting with family via hand gestures and yes/no nods. He may be extubated later today if he continues to do well. Denies pain , SOB, n/v. Agree with plan as outlined by PA. (Yoli Graves DO) General Appearance: WD/WN, no apparent distress Eye Exam: bilateral eye normal inspection, bilateral eye other (normal sclera) Respiratory: no respiratory distress, decreased breath sounds (with vent in place) Cardiovascular: regular rate, rhythm, no edema Gastrointestinal: non tender, soft Extremities: non-tender, no pedal edema Neurologic/Psychiatric: alert (oriented to person, moving UE, shaking head yes/ no to questions) Skin Characteristics: normal color, warm/dry (Yoli Graves DO) Assessment/Plan Agree with plan as outlined above Pt with shock of uncertain etiology Had been intubated but now doing well with tube in place and vent off INR 6.1 without s/sx of bleeding, management as per ICU ECHO noted (Yoli Graves DO)
--- NOTE | 2017-07-31 15:29 | Palliative Care Consultation ---
Consultation Date of Consultation: Jul 31, 2017. Requesting Physician: Corwin Fuentes PA-C Attending Physician: Dr. Graves Reason for Consultation: Goals of care History of Present Illness This 77 year old male patient with PMH CHF, CKD, CAD s/p CABG and aortic dissection, and others listed below, presented to the hospital three days ago with c/o increasing weakness and cough. He came from [facility] , where he was receiving rehab after a hospitalization for left hip fracture and repair on 06/26/17. CXR upon admission showed vascular congestion, O2 sat was in low 80s. Patient was initially admitted to telemetry unit until he had sudden decompensation/worsening SOB and hypoxia. He was sent to ICU and was intubated. Being treated for respiratory acidosis, SANHTOSH on CKD, pneumonia, septic and cardiogenic shock, supratherapeutic INR, and CHF exacerbation. Patient has improved from yesterday, but remains critically ill, ventilated in ICU. 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 Palliative care is consulted to assist in establishing goals of care. I stopped by yesterday and today to patient's room, 105. Family has not been present. Today, patient is awake on the vent. Nodding head appropriately yes and no, making sustained eye contact, denying any pain or discomfort at this time. He is on CPAP trial via ETT and doing well. Unable to have full conversation about goals of care/wishes at this time, but will do so when/if patient extubated. Of note, it is documented that patient does not have living will. 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 Hypothyroidism Surgical History: Surgical: Repair of aortic thoracic dissection and placement of mechanical aortic valve 2000 Replacement of mechanical valve 2001 AICD placement and revisions 2001,2007,2008 Aortic arch repair with 3rd valve replacement - bioprosthesis 2009 Social History Smoking Status: Former Smoker History of Alcohol Use: No Drug Use: none Marital Status: Housing Status: lives with family Occupation Status: retired Review of Systems Cardiac: No chest pain Abdomen: No pain, No nausea Psychiatric: No anxiety unable to obtain full ROS due to intubation Allergies Coded Allergies: Adhesives (Verified Allergy, Unknown, removed skin, 06/24/17) Medications Current Inpatient Medications Medications (Trade) Dose Ordered Sig/Deion Route Start Time Stop Time Status Last Admin Dose Admin Amiodarone HCl (Cordarone Tab) 200 mg QAM PO 07/29/17 09:00 08/28/17 08:59 07/31/17 09:07 200 MG Ascorbic Acid (Vitamin C Tab) 500 mg QAM PO 07/29/17 09:00 08/28/17 08:59 07/31/17 09:08 500 MG Levothyroxine Sodium (Synthroid Tab) 25 mcg DAILYBB PO 07/29/17 06:30 08/28/17 06:59 07/31/17 05:47 25 MCG Pravastatin Sodium (Pravachol Tab) 40 mg HS PO 07/29/17 21:00 08/28/17 20:59 07/30/17 21:28 40 MG Warfarin Sodium (Coumadin Tab) 5 mg DAILY@16 PO 07/29/17 16:00 08/28/17 15:59 Future Hold 07/29/17 16:36 5 MG Acetaminophen (Tylenol Tab) 650 mg Q4H PRN PO 07/28/17 22:00 08/27/17 21:59 07/30/17 03:11 650 MG Al Hydrox/Mg Hydrox/Simethicone (Maalox Max Susp) 15 ml Q4H PRN PO 07/28/17 22:00 08/27/17 21:59 Magnesium Hydroxide (Milk Of Magnesia Susp) 30 ml Q6H PRN PO 07/28/17 22:00 08/27/17 21:59 Polyethylene (Miralax Powder Packet) 17 gm DAILY PRN PO 07/28/17 22:00 08/27/17 21:59 Ondansetron HCl (Zofran Inj) 4 mg Q6H PRN IV 07/28/17 22:00 08/27/17 21:59 Miscellaneous (Iv Fluids Completed) 1 ea PRN PRN N/A 07/29/17 02:30 07/29/18 02:29 Piperacillin Sod/ Tazobactam Sod 3.375 gm/Dextrose 115 ml @ 28.75 mls/ hr Q8H IV 07/29/17 22:00 08/13/17 21:59 07/31/17 13:40 28.75 MLS/HR Miscellaneous Information (Consult) 1 ea UD PRN N/A 07/29/17 16:00 08/13/17 15:59 Miscellaneous Information (Consult) 1 ea UD PRN N/A 07/29/17 16:00 08/28/17 15:59 Dopamine HCl/ Dextrose 0 ml @ 0 mls/hr Q0M PRN IV 07/29/17 20:23 08/28/17 20:22 Dobutamine HCl 0 ml @ 0 mls/hr Q0M PRN IV 07/30/17 00:08 08/29/17 00:07 07/31/17 11:53 30.7 MLS/HR Norepinephrine Bitartrate 8 mg/ Dextrose 508 ml @ 0 mls/hr Q0M PRN IV 07/30/17 05:05 08/29/17 05:04 07/30/17 17:55 24 MLS/HR Midazolam HCl (Versed Inj) 2 mg Q2H PRN IV 07/30/17 08:45 08/29/17 08:44 07/30/17 11:34 2 MG Fentanyl Citrate (Fentanyl Inj) 100 mcg Q2H PRN IV 07/30/17 08:45 08/13/17 08:44 07/30/17 13:55 100 MCG Vasopressin 50 units/Sodium Chloride 502.5 ml @ 24 mls/hr [id number] IV 07/30/17 08:45 08/29/17 08:44 07/31/17 05:46 24 MLS/HR Pantoprazole Sodium 40 mg/ Syringe 10 ml @ 5 mls/min DAILY@11 IV 07/30/17 11:00 08/29/17 10:59 07/31/17 10:38 5 MLS/MIN Aspirin (Aspirin Chew) 81 mg QAM PO 07/31/17 09:00 08/30/17 08:59 07/31/17 09:08 81 MG Albuterol/ Ipratropium (Duoneb) 3 ml QIDR PRN INH 07/30/17 18:00 08/29/17 17:59 Docusate Sodium (coLACE SYRUP) 100 mg QPM PO 07/30/17 21:30 08/29/17 21:29 07/30/17 22:19 100 MG Vancomycin HCl 1750 mg/Sodium Chloride 535 ml @ 200 mls/hr Q24H IV 07/31/17 07:15 08/06/17 07:14 07/31/17 07:47 200 MLS/HR Physical Exam Date Time Temp Pulse Resp B/P (MAP) Pulse Ox O2 Delivery O2 Flow Rate FiO2 07/31/17 14:00 86 18 137/64 (88) 96 07/31/17 13:00 90 23 132/66 (88) 97 07/31/17 12:30 88 14 136/65 (88) 97 07/31/17 12:00 55 07/31/17 12:00 37.1 89 22 133/65 (87) 97 CPAP 55 07/31/17 12:00 CPAP 55 07/31/17 11:30 92 18 140/69 (92) 100 CPAP 55 07/31/17 11:15 91 122/61 (81) 98 CPAP 55 07/31/17 11:00 89 22 119/59 (79) 96 CPAP 55 07/31/17 10:45 92 124/57 (79) 98 CPAP 55 07/31/17 10:30 86 119/58 (78) 96 CPAP 55 07/31/17 10:15 95 25 117/61 (79) 96 CPAP 55 07/31/17 10:00 94 27 119/55 (76) 100 CPAP 55 07/31/17 09:45 92 14 127/62 (83) 98 CPAP 55 07/31/17 09:30 93 132/63 (86) 97 CPAP 55 07/31/17 09:15 93 133/71 (91) 97 CPAP 55 07/31/17 09:00 94 20 126/69 (88) 99 CPAP 55 07/31/17 08:45 94 118/63 (81) 99 CPAP 55 07/31/17 08:30 89 22 137/67 (90) 99 CPAP 55 07/31/17 08:15 90 13 132/59 (83) 98 CPAP 55 07/31/17 08:00 37.0 95 24 120/59 (79) 99 CPAP 55 07/31/17 08:00 CPAP 55 07/31/17 08:00 55 07/31/17 08:00 Mechanical Ventilator 100 07/31/17 07:45 93 26 124/62 (82) 99 CPAP 55 07/31/17 07:30 95 125/59 (81) 98 CPAP 55 07/31/17 07:15 93 23 133/65 (87) 97 CPAP 55 07/31/17 07:00 97 21 129/59 (82) 97 07/31/17 06:15 97 23 126/61 (77) 97 90/48 (66) 07/31/17 06:00 96 19 137/73 (95) 99 88/48 07/31/17 05:45 97 15 139/66 (96) 99 87/47 07/31/17 05:30 97 20 123/57 (76) 91 64/41 07/31/17 05:30 55 07/31/17 05:15 94 20 137/68 (90) 97 98/52 07/31/17 05:00 96 20 134/68 (96) 99 99/53 (73) 07/31/17 04:45 94 20 142/63 (96) 97 96/51 (66) 07/31/17 04:30 91 20 142/67 (95) 99 103/53 (74) 07/31/17 04:30 55 07/31/17 04:15 94 23 140/68 (99) 97 96/52 (71) 07/31/17 04:01 37.4 90 26 147/73 (67) 97 97/45 (66) 07/31/17 04:00 Mechanical Ventilator 60 07/31/17 04:00 55 07/31/17 03:45 90 20 150/74 (108) 98 107/52 (75) 07/31/17 03:30 92 21 141/73 (94) 98 100/54 (74) 07/31/17 03:15 93 20 145/71 (92) 98 96/50 (69) 07/31/17 03:00 93 21 139/71 (92) 97 96/50 (68) 07/31/17 02:45 93 20 139/67 (88) 96 91/49 (67) 07/31/17 02:30 94 20 131/70 (86) 95 91/48 (66) 07/31/17 02:15 95 20 151/79 (103) 98 106/54 (78) 07/31/17 02:00 89 20 139/65 (105) 98 96/51 (70) 07/31/17 01:45 95 22 139/67 (92) 98 87/49 (65) 07/31/17 01:37 94 18 109/58 (59) 94 75/43 (70) 07/31/17 01:31 96 21 108/56 (62) 94 77/49 (65) 07/31/17 01:26 96 23 120/60 (72) 77/48 (61) 07/31/17 01:22 55 07/31/17 01:16 92 24 141/74 (70) 97 87/55 (72) 07/31/17 01:01 97 25 117/64 (64) 95 84/49 (64) 07/31/17 00:46 91 20 134/70 (80) 97 112/58 (77) 07/31/17 00:31 92 20 135/87 (71) 96 98/53 (71) 07/31/17 00:16 90 20 123/63 (70) 96 95/52 (65) 07/31/17 00:01 37.7 91 20 136/58 (69) 96 94/51 (72) 07/31/17 00:01 60 07/31/17 00:01 Mechanical Ventilator 60 07/30/17 23:46 92 20 127/62 (68) 96 90/50 (69) 07/30/17 23:31 91 20 126/65 (68) 96 93/50 (70) 07/30/17 23:16 90 20 130/67 (70) 96 95/51 (70) 07/30/17 23:01 94 21 137/68 (73) 96 100/53 (71) 07/30/17 22:46 90 20 134/65 (69) 96 93/50 (69) 07/30/17 22:31 93 20 133/63 (71) 96 97/53 (72) 07/30/17 22:24 55 07/30/17 22:16 91 20 140/64 (71) 96 96/53 (70) 07/30/17 22:01 93 21 145/69 (78) 97 108/57 (77) 07/30/17 21:46 94 20 140/74 (77) 97 106/57 (78) 07/30/17 21:46 94 20 140/74 (77) 97 106/57 (74) 07/30/17 21:31 89 20 142/67 (75) 97 103/56 (76) 07/30/17 21:16 91 20 142/69 (73) 97 99/55 (73) 07/30/17 21:01 91 20 131/63 (66) 96 89/50 (68) 07/30/17 20:46 92 20 135/68 (70) 96 94/52 (68) 07/30/17 20:31 91 20 129/60 (68) 96 89/51 (69) 07/30/17 20:16 91 20 137/65 (74) 97 100/54 (71) 07/30/17 20:01 37.9 90 20 137/66 (72) 96 98/53 (76) 07/30/17 20:00 Mechanical Ventilator 60 07/30/17 20:00 60 07/30/17 19:46 90 20 125/70 (57) 96 80/41 (70) 07/30/17 19:31 92 20 116/62 (68) 96 87/54 (71) 07/30/17 19:16 90 21 160/73 (92) 99 127/67 (80) 07/30/17 19:12 55 07/30/17 19:01 92 20 141/72 (85) 100 120/62 (88) 07/30/17 18:30 89 20 108/59 (75) 98 07/30/17 18:15 92 21 106/58 (74) 98 07/30/17 18:00 37.5 89 20 126/65 (85) 98 07/30/17 17:48 60 07/30/17 17:46 88 20 107/58 (74) 97 07/30/17 17:45 90 20 104/58 (73) 97 07/30/17 17:31 89 20 124/64 (84) 99 07/30/17 17:30 91 20 116/61 (79) 99 07/30/17 17:01 88 20 119/63 (81) 98 07/30/17 17:00 37.3 88 20 118/63 (81) 98 07/30/17 16:46 87 20 128/67 (87) 99 07/30/17 16:45 89 20 129/67 (87) 99 07/30/17 16:31 88 20 116/63 (80) 98 07/30/17 16:30 88 20 124/66 (85) 98 07/30/17 16:16 91 22 127/70 (89) 100 07/30/17 16:15 91 20 135/71 (92) 100 07/30/17 16:00 60 07/30/17 16:00 37.3 90 20 145/69 (94) 98 Mechanical Ventilator 60 07/30/17 16:00 Mechanical Ventilator 60 07/30/17 15:45 90 15 112/67 (82) 96 07/30/17 15:30 86 21 120/64 (82) 98 General Appearance: no apparent distress ENT: hearing grossly normal Neck: supple, no JVD Respiratory: no respiratory distress, no accessory muscle use, + rhonchi ( coarse throughout) Cardiovascular: regular rate, rhythm, + normal peripheral pulses, + pertinent finding (trace edema to bilateral feet) Abdomen: normal bowel sounds, non tender, + distended (obesely distended at baseline) Neurologic/Psychiatric: alert, + pertinent finding (intubated) Skin: normal color Laboratory Results Last 24 Hours Test 07/30/17 20:49 07/31/17 01:31 07/31/17 01:34 07/31/17 05:26 Bedside Glucose 138 mg/dl 152 mg/dl Vancomycin Level Trough 15.4 mcg/ml White Blood Count 7.74 K/uL Red Blood Count 3.40 M/uL Hemoglobin 8.9 g/dL Hematocrit 28.7 % Mean Corpuscular Volume 84.4 fL Mean Corpuscular Hemoglobin 26.2 pg Mean Corpuscular Hemoglobin Concent 31.0 g/dl RDW Standard Deviation 49.8 fL RDW Coefficient of Variation 16.1 % Platelet Count 202 K/uL Mean Platelet Volume 11.1 fL Prothrombin Time 62.2 SECONDS Prothromb Time International Ratio 6.1 Sodium Level 129 mmol/L Potassium Level 3.4 mmol/L Chloride Level 92 mmol/L Carbon Dioxide Level 31 mmol/L Anion Gap 6.0 mmol/L Blood Urea Nitrogen 18 mg/dl Creatinine 1.27 mg/dl Est Creatinine Clear Calc Drug Dose 53.5 ml/min Estimated GFR () 62.7 Estimated GFR (Non- 54.1 BUN/Creatinine Ratio 13.8 Random Glucose 128 mg/dl Calcium Level 7.1 mg/dl Phosphorus Level 2.4 mg/dl Magnesium Level 2.1 mg/dl Test 07/31/17 05:29 07/31/17 06:19 07/31/17 08:33 07/31/17 13:54 Bedside Glucose 135 mg/dl Blood Gas Sample Site L Radial Bedside Blood Gas pH (LAB) 7.45 Bedside Blood Gas pCO2 (LAB) 49 mmHg Bedside Blood Gas pO2 (LAB) 88 mmHg Bedside Blood Gas HCO3 (LAB) 34 meq/L Bedside Blood Gas Total CO2 35 mEq/l Bedside Blood Gas Base Excess (LAB) 10.0 meq/L Bedside Blood Gas O2 Saturation 97.0 % Elio Test NA Oxygen Delivery Device Ventilator Bedside FiO2 55 % Blood Gas PEEP 5 Prothrombin Time 61.6 SECONDS Prothromb Time International Ratio 6.1 Sodium Level 131 mmol/L Potassium Level 3.9 mmol/L Chloride Level 93 mmol/L Carbon Dioxide Level 31 mmol/L Anion Gap 7.0 mmol/L Blood Urea Nitrogen 15 mg/dl Creatinine 1.15 mg/dl Est Creatinine Clear Calc Drug Dose 59.0 ml/min Estimated GFR () 70.7 Estimated GFR (Non- 61.0 BUN/Creatinine Ratio 13.0 Random Glucose 125 mg/dl Calcium Level 7.0 mg/dl Assessment & Plan Problem list: Acute hypoxic hypercarbic respiratory failure 2/2 CHF Acute CHF exacerbation Pneumonia Severe sepsis/septic shock SANTHOSH on CKD Hyperkalemia CAD s/p CABG and multiple aortic root replacements Afib Supratherapeutic INR Goals of care (Z51.5) Palliative care recs: -Patient is level 5 DNR after framing consultant and hospitalist physicians' conversation with patient and family. Patient was okay with intubation during this admission but did not want cardiac resuscitation in event of cardiac arrest. -Patient's condition has improved from yesterday. Continuing on with current medical management in hopes of extubation. Patient currently on CPAP via ETT and doing well. Is awake and alert able to answer questions appropriately with head nods. No sedation required. -Given patient's age and multiple severe comorbidities, a discussion about goals of care is warranted, preferably after extubation as long as things keep progressing in right direction so that patient can participate in conversation. -ICU team has been engaging family in discussions, and I made myself available to come for any family meeting/interaction. Otherwise, I will plan to engage patient and family in goals of care discussion if/when patient gets over this hump. -Patient comes from [facility] after hospitalization, and prior to that was at home. Uncertain of what patient's needs will be on discharge. Case management following. Thank you kindly for this consult. I will follow as needed. Total time 50 minutes spent on unit collaborating, reviewing chart, and at bedside for physical exam and discussing POC.
--- NOTE | 2017-07-31 17:53 | Critical Care Progress Note ---
Critical Care Progress Note Date of Service Jul 31, 2017. ICU Day ICU Day Number: [address] Persaud Subjective No overnight events. Patient has been able to be weaned off Levophed, currently on vasopressin and dobutamine Objective General - NAD, resting in bed Eyes - PERRL, EOMI No icterus, ENT -endotracheal tube present Neck - no JVD Lungs -coarse sounds bilaterally Heart - Reg rate and rhythm, Systolic murmur, Abdomen: Soft nontender nondistended Extremities - No edema, pedal pulses intact Skin: Known ulcers x 3 on left buttocks, dressing intact clean and dry. Neuro -alert following commands, gives thumbs-up Assessment & Plan PLAN: CV: * R IJ placed for central drug administration: Changed Dopamine to Dobutamine 2/ 2 tachycardia in the 115-120s * GOAL MAP >65 * Arterial line dampened, discontinue today * Holding antihypertensives Neuro: * Currently Alert * Monitor for changes * Pt denies pain or discomfort Resp: * Hypoxic respiratory failure * Change in sputum quality, thick creamy secretions * Clinically he appears to have a pneumonia Fluids/Renal: * Continuing diuresis at this time * Patient requiring both vasopressin and dobutamine * Sandoval (Chronic) in place * Strict I&Os * Patient has ampicillin sensitive enterococcus growing from urineo ID: * Abx: De-escalate Zosyn to ampicillin for 14 days of treatment for complicated urinary tract infection * MRSA Nasal Swab Positive * Afebrile: For 24 hours * Known Ulcers on left buttocks: wound consult placed and following. Dressing dry and intact GI/Nutrition: * Nothing by mouth while on high vasoactive medications * Continue home PPI Heme: * Coumadin increasing likely secondary to additional medications * Continue to monitor Endocrine: * TSH pending in AM labs * Blood sugars within acceptable range CODE STATUS: DO NOT RESUSCITATE in event of cardiac arrest I have updated the family. I have personally spent 85 minutes of critical care time in the direct management of this patient. This is a life/limb threatening event. This includes time spent evaluating patient, direct bedside care, chart review, placing orders, interpretation of diagnostic studies, discussion with consultants, patient, and/or family members regarding treatment decisions, as well as other required patient management activities. This time is exclusive of all separately billable procedures, and teaching time and separate from and in addition to any other critical care service time. Data Medications: Current Inpatient Medications Medications (Trade) Dose Ordered Sig/Deion Route Start Time Stop Time Status Last Admin Dose Admin Amiodarone HCl (Cordarone Tab) 200 mg QAM PO 07/29/17 09:00 08/28/17 08:59 07/31/17 09:07 200 MG Ascorbic Acid (Vitamin C Tab) 500 mg QAM PO 07/29/17 09:00 08/28/17 08:59 07/31/17 09:08 500 MG Levothyroxine Sodium (Synthroid Tab) 25 mcg DAILYBB PO 07/29/17 06:30 08/28/17 06:59 07/31/17 05:47 25 MCG Pravastatin Sodium (Pravachol Tab) 40 mg HS PO 07/29/17 21:00 08/28/17 20:59 07/30/17 21:28 40 MG Warfarin Sodium (Coumadin Tab) 5 mg DAILY@16 PO 07/29/17 16:00 08/28/17 15:59 Future Hold 07/29/17 16:36 5 MG Acetaminophen (Tylenol Tab) 650 mg Q4H PRN PO 07/28/17 22:00 08/27/17 21:59 07/30/17 03:11 650 MG Al Hydrox/Mg Hydrox/Simethicone (Maalox Max Susp) 15 ml Q4H PRN PO 07/28/17 22:00 08/27/17 21:59 Magnesium Hydroxide (Milk Of Magnesia Susp) 30 ml Q6H PRN PO 07/28/17 22:00 08/27/17 21:59 Polyethylene (Miralax Powder Packet) 17 gm DAILY PRN PO 07/28/17 22:00 08/27/17 21:59 Ondansetron HCl (Zofran Inj) 4 mg Q6H PRN IV 07/28/17 22:00 08/27/17 21:59 Miscellaneous (Iv Fluids Completed) 1 ea PRN PRN N/A 07/29/17 02:30 07/29/18 02:29 Piperacillin Sod/ Tazobactam Sod 3.375 gm/Dextrose 115 ml @ 28.75 mls/ hr Q8H IV 07/29/17 22:00 08/13/17 21:59 07/31/17 13:40 28.75 MLS/HR Miscellaneous Information (Consult) 1 ea UD PRN N/A 07/29/17 16:00 08/13/17 15:59 Miscellaneous Information (Consult) 1 ea UD PRN N/A 07/29/17 16:00 08/28/17 15:59 Dopamine HCl/ Dextrose 0 ml @ 0 mls/hr Q0M PRN IV 07/29/17 20:23 08/28/17 20:22 Dobutamine HCl 0 ml @ 0 mls/hr Q0M PRN IV 07/30/17 00:08 08/29/17 00:07 07/31/17 11:53 30.7 MLS/HR Norepinephrine Bitartrate 8 mg/ Dextrose 508 ml @ 0 mls/hr Q0M PRN IV 07/30/17 05:05 08/29/17 05:04 07/30/17 17:55 24 MLS/HR Midazolam HCl (Versed Inj) 2 mg Q2H PRN IV 07/30/17 08:45 08/29/17 08:44 07/30/17 11:34 2 MG Fentanyl Citrate (Fentanyl Inj) 100 mcg Q2H PRN IV 07/30/17 08:45 08/13/17 08:44 07/30/17 13:55 100 MCG Vasopressin 50 units/Sodium Chloride 502.5 ml @ 24 mls/hr [id number] IV 07/30/17 08:45 08/29/17 08:44 07/31/17 05:46 24 MLS/HR Pantoprazole Sodium 40 mg/ Syringe 10 ml @ 5 mls/min DAILY@11 IV 07/30/17 11:00 08/29/17 10:59 07/31/17 10:38 5 MLS/MIN Aspirin (Aspirin Chew) 81 mg QAM PO 07/31/17 09:00 08/30/17 08:59 07/31/17 09:08 81 MG Albuterol/ Ipratropium (Duoneb) 3 ml QIDR PRN INH 07/30/17 18:00 08/29/17 17:59 Docusate Sodium (coLACE SYRUP) 100 mg QPM PO 07/30/17 21:30 08/29/17 21:29 07/30/17 22:19 100 MG Vancomycin HCl 1500 mg/Sodium Chloride 530 ml @ 200 mls/hr Q24H IV 08/01/17 01:00 08/11/17 00:59 I & O: 24-Hour Column 08/01/17 08:00 Intake Total 1896 ml Output Total 1600 ml Balance 296 ml Vital Signs: Date Time Temp Pulse Resp B/P (MAP) Pulse Ox O2 Delivery O2 Flow Rate FiO2 07/31/17 16:00 CPAP 55 07/31/17 16:00 37.0 90 20 110/71 (84) 98 CPAP 55 07/31/17 16:00 55 07/31/17 14:35 55 07/31/17 14:00 86 18 137/64 (88) 96 07/31/17 13:00 90 23 132/66 (88) 97 07/31/17 12:30 88 14 136/65 (88) 97 07/31/17 12:00 55 07/31/17 12:00 37.1 89 22 133/65 (87) 97 CPAP 55 07/31/17 12:00 CPAP 55 07/31/17 11:30 92 18 140/69 (92) 100 CPAP 55 07/31/17 11:15 91 122/61 (81) 98 CPAP 55 07/31/17 11:11 55 07/31/17 11:00 89 22 119/59 (79) 96 CPAP 55 07/31/17 10:45 92 124/57 (79) 98 CPAP 55 07/31/17 10:30 86 119/58 (78) 96 CPAP 55 07/31/17 10:15 95 25 117/61 (79) 96 CPAP 55 07/31/17 10:00 94 27 119/55 (76) 100 CPAP 55 07/31/17 09:45 92 14 127/62 (83) 98 CPAP 55 07/31/17 09:30 93 132/63 (86) 97 CPAP 55 07/31/17 09:15 93 133/71 (91) 97 CPAP 55 07/31/17 09:00 94 20 126/69 (88) 99 CPAP 55 07/31/17 08:45 94 118/63 (81) 99 CPAP 55 07/31/17 08:30 89 22 137/67 (90) 99 CPAP 55 07/31/17 08:15 90 13 132/59 (83) 98 CPAP 55 07/31/17 08:00 37.0 95 24 120/59 (79) 99 CPAP 55 07/31/17 08:00 CPAP 55 07/31/17 08:00 55 07/31/17 08:00 Mechanical Ventilator 100 07/31/17 07:45 93 26 124/62 (82) 99 CPAP 55 07/31/17 07:31 55 07/31/17 07:30 95 125/59 (81) 98 CPAP 55 07/31/17 07:15 93 23 133/65 (87) 97 CPAP 55 07/31/17 07:00 97 21 129/59 (82) 97 07/31/17 06:15 97 23 126/61 (77) 97 90/48 (66) 07/31/17 06:00 96 19 137/73 (95) 99 88/48 07/31/17 05:45 97 15 139/66 (96) 99 87/47 07/31/17 05:30 97 20 123/57 (76) 91 64/41 07/31/17 05:30 55 07/31/17 05:15 94 20 137/68 (90) 97 98/52 07/31/17 05:00 96 20 134/68 (96) 99 99/53 (73) 07/31/17 04:45 94 20 142/63 (96) 97 96/51 (66) 07/31/17 04:30 91 20 142/67 (95) 99 103/53 (74) 07/31/17 04:30 55 07/31/17 04:15 94 23 140/68 (99) 97 96/52 (71) 07/31/17 04:01 37.4 90 26 147/73 (67) 97 97/45 (66) 07/31/17 04:00 Mechanical Ventilator 60 07/31/17 04:00 55 07/31/17 03:45 90 20 150/74 (108) 98 107/52 (75) 07/31/17 03:30 92 21 141/73 (94) 98 100/54 (74) 07/31/17 03:15 93 20 145/71 (92) 98 96/50 (69) 07/31/17 03:00 93 21 139/71 (92) 97 96/50 (68) 07/31/17 02:45 93 20 139/67 (88) 96 91/49 (67) 07/31/17 02:30 94 20 131/70 (86) 95 91/48 (66) 07/31/17 02:15 95 20 151/79 (103) 98 106/54 (78) 07/31/17 02:00 89 20 139/65 (105) 98 96/51 (70) 07/31/17 01:45 95 22 139/67 (92) 98 87/49 (65) 07/31/17 01:37 94 18 109/58 (59) 94 75/43 (70) 07/31/17 01:31 96 21 108/56 (62) 94 77/49 (65) 07/31/17 01:26 96 23 120/60 (72) 77/48 (61) 07/31/17 01:22 55 07/31/17 01:16 92 24 141/74 (70) 97 87/55 (72) 07/31/17 01:01 97 25 117/64 (64) 95 84/49 (64) 07/31/17 00:46 91 20 134/70 (80) 97 112/58 (77) 07/31/17 00:31 92 20 135/87 (71) 96 98/53 (71) 07/31/17 00:16 90 20 123/63 (70) 96 95/52 (65) 07/31/17 00:01 37.7 91 20 136/58 (69) 96 94/51 (72) 07/31/17 00:01 60 07/31/17 00:01 Mechanical Ventilator 60 07/30/17 23:46 92 20 127/62 (68) 96 90/50 (69) 07/30/17 23:31 91 20 126/65 (68) 96 93/50 (70) 07/30/17 23:16 90 20 130/67 (70) 96 95/51 (70) 07/30/17 23:01 94 21 137/68 (73) 96 100/53 (71) 07/30/17 22:46 90 20 134/65 (69) 96 93/50 (69) 07/30/17 22:31 93 20 133/63 (71) 96 97/53 (72) 07/30/17 22:24 55 07/30/17 22:16 91 20 140/64 (71) 96 96/53 (70) 07/30/17 22:01 93 21 145/69 (78) 97 108/57 (77) 07/30/17 21:46 94 20 140/74 (77) 97 106/57 (78) 07/30/17 21:46 94 20 140/74 (77) 97 106/57 (74) 07/30/17 21:31 89 20 142/67 (75) 97 103/56 (76) 07/30/17 21:16 91 20 142/69 (73) 97 99/55 (73) 07/30/17 21:01 91 20 131/63 (66) 96 89/50 (68) 07/30/17 20:46 92 20 135/68 (70) 96 94/52 (68) 07/30/17 20:31 91 20 129/60 (68) 96 89/51 (69) 07/30/17 20:16 91 20 137/65 (74) 97 100/54 (71) 07/30/17 20:01 37.9 90 20 137/66 (72) 96 98/53 (76) 07/30/17 20:00 Mechanical Ventilator 60 07/30/17 20:00 60 07/30/17 19:46 90 20 125/70 (57) 96 80/41 (70) 07/30/17 19:31 92 20 116/62 (68) 96 87/54 (71) 07/30/17 19:16 90 21 160/73 (92) 99 127/67 (80) 07/30/17 19:12 55 07/30/17 19:01 92 20 141/72 (85) 100 120/62 (88) 07/30/17 18:30 89 20 108/59 (75) 98 07/30/17 18:15 92 21 106/58 (74) 98 07/30/17 18:00 37.5 89 20 126/65 (85) 98 07/30/17 17:48 60 07/30/17 17:46 88 20 107/58 (74) 97 07/30/17 17:45 90 20 104/58 (73) 97 Laboratory Results: Last 24 Hours Test 07/30/17 20:49 07/31/17 01:31 07/31/17 01:34 07/31/17 05:26 Bedside Glucose 138 mg/dl 152 mg/dl Vancomycin Level Trough 15.4 mcg/ml White Blood Count 7.74 K/uL Red Blood Count 3.40 M/uL Hemoglobin 8.9 g/dL Hematocrit 28.7 % Mean Corpuscular Volume 84.4 fL Mean Corpuscular Hemoglobin 26.2 pg Mean Corpuscular Hemoglobin Concent 31.0 g/dl RDW Standard Deviation 49.8 fL RDW Coefficient of Variation 16.1 % Platelet Count 202 K/uL Mean Platelet Volume 11.1 fL Prothrombin Time 62.2 SECONDS Prothromb Time International Ratio 6.1 Sodium Level 129 mmol/L Potassium Level 3.4 mmol/L Chloride Level 92 mmol/L Carbon Dioxide Level 31 mmol/L Anion Gap 6.0 mmol/L Blood Urea Nitrogen 18 mg/dl Creatinine 1.27 mg/dl Est Creatinine Clear Calc Drug Dose 53.5 ml/min Estimated GFR () 62.7 Estimated GFR (Non- 54.1 BUN/Creatinine Ratio 13.8 Random Glucose 128 mg/dl Calcium Level 7.1 mg/dl Phosphorus Level 2.4 mg/dl Magnesium Level 2.1 mg/dl Test 07/31/17 05:29 07/31/17 06:19 07/31/17 08:33 07/31/17 13:54 Bedside Glucose 135 mg/dl Blood Gas Sample Site L Radial Bedside Blood Gas pH (LAB) 7.45 Bedside Blood Gas pCO2 (LAB) 49 mmHg Bedside Blood Gas pO2 (LAB) 88 mmHg Bedside Blood Gas HCO3 (LAB) 34 meq/L Bedside Blood Gas Total CO2 35 mEq/l Bedside Blood Gas Base Excess (LAB) 10.0 meq/L Bedside Blood Gas O2 Saturation 97.0 % Elio Test NA Oxygen Delivery Device Ventilator Bedside FiO2 55 % Blood Gas PEEP 5 Prothrombin Time 61.6 SECONDS Prothromb Time International Ratio 6.1 Sodium Level 131 mmol/L Potassium Level 3.9 mmol/L Chloride Level 93 mmol/L Carbon Dioxide Level 31 mmol/L Anion Gap 7.0 mmol/L Blood Urea Nitrogen 15 mg/dl Creatinine 1.15 mg/dl Est Creatinine Clear Calc Drug Dose 59.0 ml/min Estimated GFR () 70.7 Estimated GFR (Non- 61.0 BUN/Creatinine Ratio 13.0 Random Glucose 125 mg/dl Calcium Level 7.0 mg/dl
[2017-07-31] MEDS: PRAVASTATIN SOD 40 MG TAB PO SCH (20:57)
[2017-07-31] MEDS: DOCUSATE SODIUM 100 MG/10 ML UDC PO SCH (20:57)
[2017-08-01] VITALS (43 sets, daily range): BP systolic 86–123; BP diastolic 39–63; PULSE 75–90; TEMP 36.7–37.1; O2SAT 91–100
[2017-08-01] MEDS ORDERED: VANCOMYCIN INJ 1,500 MG in SODIUM CHLORIDE 0.9% 500ML 500 ML IV SCH (01:00)
[2017-08-01] MEDS: PIPERACILL/TAZOBAC IV 3.375 GM in DEXTROSE 5% 100ML 100 ML IV SCH ×3 (05:56→21:50)
[2017-08-01] MEDS: LEVOTHYROXINE 25 MCG TAB PO SCH (05:56)
[2017-08-01 06:14] LABS: HEMATOCRIT 25.7 % (42-52); HEMOGLOBIN 7.9 g/dL (14.0-18.0); MEAN CORPUSCULAR HEMOGLOBIN 26.4 pg (25-34); MEAN CORPUSCULAR HGB CONC 30.7 g/dl (32-36); MEAN PLATELET VOLUME 10.6 fL (7.4-10.4); PLATELET COUNT 183 K/uL (130-400); RED CELL DISTRIBUTION WIDTH CV 16.6 % (11.5-14.5); RED CELL DISTRIBUTION WIDTH SD 52.3 fL (36.4-46.3); WHITE BLOOD COUNT 7.02 K/uL (4.8-10.8)
[2017-08-01 06:43] LABS: CALCIUM 7.2 mg/dl (8.5-10.1); CREATININE 1.03 mg/dl (0.60-1.40); PHOSPHORUS 2.3 mg/dl (2.5-4.9); POTASSIUM 3.1 mmol/L (3.5-5.1)
[2017-08-01 07:21] LABS: INR 6.6 (0.9-1.1)
[2017-08-01] MEDS: ASPIRIN 81 MG CHEW PO SCH (07:26)
[2017-08-01] MEDS: AMIODARONE 200 MG TAB PO SCH (07:26)
--- NOTE | 2017-08-01 08:16 | DIAGNOSTIC IMAGING REPORT ---
CHEST ONE VIEW PORTABLE HISTORY: Respiratory failure. COMPARISON: Chest 07/31/2017. FINDINGS: The endotracheal tube terminates approximately 2.3 cm from the holly. Nasogastric tube is curled within the stomach. Left-sided pacemaker/defibrillator. Poststernotomy changes. No pneumothorax. Diffuse interstitial and vascular thickening is progressed. Old, healed bilateral rib fractures. Small area of herniated lung within the left lateral lung base. Trace bilateral pleural effusions. Left basilar densities have progressed. The heart remains enlarged. 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 Right jugular central venous catheter terminates in the SVC. IMPRESSION: 1. Progressive interstitial and vascular thickening with patchy airspace opacities could represent worsening pulmonary edema or a pneumonia. 2. Trace bilateral pleural effusions. 3. Left basilar densities have also progressed. 4. Satisfactory support line placement. Electronically signed by: Hugh Freeman M.D. 08/01/2017 8:14 AM Dictated Date/Time: 08/01/2017 8:10 AM
[2017-08-01] MEDS ORDERED: FUROSEMIDE INJ 30 MG in SYRINGE 0 ML IV SCH (09:00)
[2017-08-01] MEDS: ASCORBIC ACID 500 MG TAB PO SCH (09:00)
[2017-08-01] MEDS: VASOPRESSIN INJ 50 UNITS in SODIUM CHLORIDE 0.9% 500ML 500 ML IV SCH (09:04)
[2017-08-01] MEDS: POTASSIUM CHLR 20 MEQ / WTR 20 MEQ in PREMIXED WATER 100 ML IV SCH ×3 (09:32→13:33)
--- NOTE | 2017-08-01 09:54 | Nephrology Progress Note ---
Nephrology Progress Note Date of Service Aug 01, 2017. Chief Complaint Acute renal insufficiency, CHF Subjective Patient was extubated this morning. He reported some hoarseness and mild sore throat but no other complaints this morning. He denies shortness of breath. No fevers or chills. Sandoval draining clear yellow urine. Levo and vaso gtts have been weaned off. Review of Systems A complete review of systems was performed. Pertinent positives are noted above. All other systems are negative. Vital Signs Last 8 Hrs Date Time Temp Pulse Resp B/P (MAP) Pulse Ox O2 Delivery O2 Flow Rate FiO2 2/218 08:00 37.1 80 19 112/50 (70) 97 CPAP 45 2/2/18 07:58 45 2/2/18 07:58 CPAP 45 2/2/18 07:30 80 20 112/45 (67) 97 CPAP 45 2/2/18 07:00 80 11 105/46 (65) 96 CPAP 45 2/2/18 06:30 81 17 107/51 (69) 96 CPAP 45 2/2/18 06:01 77 15 97/52 (67) 95 CPAP 45 2/2/18 05:31 79 22 92/44 (60) 97 CPAP 45 2/2/18 05:14 45 2/2/18 05:01 78 18 103/47 (65) 100 CPAP 45 2/2/18 04:31 82 21 100/56 (71) 96 CPAP 45 2/2/18 04:05 37.1 2/2/18 04:01 80 14 107/56 (73) 96 CPAP 45 2/2/18 04:00 45 2/2/18 04:00 CPAP 45 2/2/18 03:31 81 18 100/42 (61) 94 CPAP 45 2/2/18 03:22 79 19 95/44 (61) 97 CPAP 45 2/2/18 03:06 80 17 93/39 (57) 94 CPAP 45 2/2/18 03:01 87 21 86/49 (61) 95 CPAP 45 2/2/18 02:31 84 19 104/47 (66) 94 CPAP 45 2/2/18 02:27 78 19 102/45 (64) 98 CPAP 45 2/2/18 02:18 50 2/2/18 02:18 80 17 102/45 (64) 99 CPAP 45 2/2/18 02:00 80 22 93/44 (60) 96 CPAP 55 Last Recorded Weight Weight (Kilograms): 91.500 Physical Exam General Appearance: WD/WN, no apparent distress Head: normocephalic, atraumatic Eyes: normal inspection, sclerae normal ENT: normal ENT inspection, pharynx normal Neck: supple, + JVD Cardiovascular: regular rate, rhythm, no gallop Abdomen/GI: non tender, soft Genitourinary - Male: + pertinent finding (Sandoval draining clear yellow urine) Extremities/Musculoskelatal: normal inspection, + pedal edema Neurologic/Psych: alert, normal mood/affect Family History Patient reports no known family medical history. Social History Smoking Status: Former smoker Drug Use: none Marital Status: Housing Status: lives with family Occupation: retired Laboratory Results Past 24 Hours 08/01/17 05:50 07/31/17 13:54 08/01/17 05:50 Test 07/31/17 11:15 07/31/17 13:54 07/31/17 23:00 08/01/17 05:50 Bedside Glucose 131 mg/dl (70-99) 109 mg/dl (70-99) Anion Gap 7.0 mmol/L (3-11) 5.0 mmol/L (3-11) Est Creatinine Clear Calc Drug Dose 59.0 ml/min 65.9 ml/min Estimated GFR () 70.7 80.8 Estimated GFR (Non- 61.0 69.7 BUN/Creatinine Ratio 13.0 (10-20) 12.3 (10-20) Calcium Level 7.0 mg/dl (8.5-10.1) 7.2 mg/dl (8.5-10.1) Red Blood Count 2.99 M/uL (4.7-6.1) Mean Corpuscular Volume 86.0 fL (80-100) Mean Corpuscular Hemoglobin 26.4 pg (25-34) Mean Corpuscular Hemoglobin Concent 30.7 g/dl (32-36) RDW Standard Deviation 52.3 fL (36.4-46.3) RDW Coefficient of Variation 16.6 % (11.5-14.5) Mean Platelet Volume 10.6 fL (7.4-10.4) Prothrombin Time 66.6 SECONDS (9.0-12.0) Prothromb Time International Ratio 6.6 (0.9-1.1) Phosphorus Level 2.3 mg/dl (2.5-4.9) Magnesium Level 1.9 mg/dl (1.8-2.4) Test 08/01/17 06:24 Venous Blood pH 7.39 (7.36-7.41) Venous Blood Partial Pressure CO2 56 mmHg (38.0-50.0) Venous Blood Partial Pressure O2 31 mmHg Venous Blood HCO3 33 mmol/L Venous Blood Oxygen Saturation < 60.0 % Venous Blood Base Excess 7.1 mEq/L Allergies Coded Allergies: Adhesives (Verified Allergy, Unknown, removed skin, 06/24/17) Medications Current Inpatient Medications Medications (Trade) Dose Ordered Sig/Deion Route Start Time Stop Time Status Last Admin Dose Admin Amiodarone HCl (Cordarone Tab) 200 mg QAM PO 07/29/17 09:00 08/28/17 08:59 08/01/17 07:26 200 MG Ascorbic Acid (Vitamin C Tab) 500 mg QAM PO 07/29/17 09:00 08/28/17 08:59 07/31/17 09:08 500 MG Levothyroxine Sodium (Synthroid Tab) 25 mcg DAILYBB PO 07/29/17 06:30 08/28/17 06:59 08/01/17 05:56 25 MCG Pravastatin Sodium (Pravachol Tab) 40 mg HS PO 07/29/17 21:00 08/28/17 20:59 07/31/17 20:57 40 MG Warfarin Sodium (Coumadin Tab) 5 mg DAILY@16 PO 07/29/17 16:00 08/28/17 15:59 Future Hold 07/29/17 16:36 5 MG Acetaminophen (Tylenol Tab) 650 mg Q4H PRN PO 07/28/17 22:00 08/27/17 21:59 07/30/17 03:11 650 MG Al Hydrox/Mg Hydrox/Simethicone (Maalox Max Susp) 15 ml Q4H PRN PO 07/28/17 22:00 08/27/17 21:59 Magnesium Hydroxide (Milk Of Magnesia Susp) 30 ml Q6H PRN PO 07/28/17 22:00 08/27/17 21:59 Polyethylene (Miralax Powder Packet) 17 gm DAILY PRN PO 07/28/17 22:00 08/27/17 21:59 Ondansetron HCl (Zofran Inj) 4 mg Q6H PRN IV 07/28/17 22:00 08/27/17 21:59 Miscellaneous (Iv Fluids Completed) 1 ea PRN PRN N/A 07/29/17 02:30 07/29/18 02:29 Piperacillin Sod/ Tazobactam Sod 3.375 gm/Dextrose 115 ml @ 28.75 mls/ hr Q8H IV 07/29/17 22:00 08/13/17 21:59 08/01/17 05:56 28.75 MLS/HR Miscellaneous Information (Consult) 1 ea UD PRN N/A 07/29/17 16:00 08/13/17 15:59 Miscellaneous Information (Consult) 1 ea UD PRN N/A 07/29/17 16:00 08/28/17 15:59 Dopamine HCl/ Dextrose 0 ml @ 0 mls/hr Q0M PRN IV 07/29/17 20:23 08/28/17 20:22 Dobutamine HCl 0 ml @ 0 mls/hr Q0M PRN IV 07/30/17 00:08 08/29/17 00:07 07/31/17 22:30 30.7 MLS/HR Norepinephrine Bitartrate 8 mg/ Dextrose 508 ml @ 0 mls/hr Q0M PRN IV 07/30/17 05:05 08/29/17 05:04 07/30/17 17:55 24 MLS/HR Midazolam HCl (Versed Inj) 2 mg Q2H PRN IV 07/30/17 08:45 08/29/17 08:44 07/30/17 11:34 2 MG Fentanyl Citrate (Fentanyl Inj) 100 mcg Q2H PRN IV 07/30/17 08:45 08/13/17 08:44 07/30/17 13:55 100 MCG Vasopressin 50 units/Sodium Chloride 502.5 ml @ 24 mls/hr [id number] IV 07/30/17 08:45 08/29/17 08:44 07/31/17 05:46 24 MLS/HR Pantoprazole Sodium 40 mg/ Syringe 10 ml @ 5 mls/min DAILY@11 IV 07/30/17 11:00 08/29/17 10:59 07/31/17 10:38 5 MLS/MIN Aspirin (Aspirin Chew) 81 mg QAM PO 07/31/17 09:00 08/30/17 08:59 08/01/17 07:26 81 MG Albuterol/ Ipratropium (Duoneb) 3 ml QIDR PRN INH 07/30/17 18:00 08/29/17 17:59 Docusate Sodium (coLACE SYRUP) 100 mg QPM PO 07/30/17 21:30 08/29/17 21:29 07/31/17 20:57 100 MG Vancomycin HCl 1500 mg/Sodium Chloride 530 ml @ 200 mls/hr Q24H IV 08/01/17 01:00 08/11/17 00:59 08/01/17 01:18 200 MLS/HR Potassium Chloride 20 meq/ Prmx 100 ml @ 50 mls/hr Q2H IV 08/01/17 09:30 08/01/17 15:29 08/01/17 09:32 50 MLS/HR Furosemide 30 mg/ Syringe 3 ml @ 4 mls/min BID IV 08/01/17 09:00 08/31/17 08:59 08/01/17 09:33 4 MLS/MIN Impression (1) Acute on chronic renal insufficiency (2) Acute on chronic systolic CHF (congestive heart failure) (3) Cardiogenic shock (4) Acute respiratory failure with hypoxia and hypercapnia Mr. Garcia is a critically ill 77-year-old male with acute on chronic renal insufficiency in the setting of cardiogenic shock. Cannot exclude potential septic component; repeat cultures NGTD. Urine output is acceptable. Renal function is improving with improved hemodynamics. Metabolic profile is otherwise acceptable and there is no acute indication for dialysis at this time. Recommendations SANTHOSH: -- Creatinine stable -- Potassium replaced as needed -- Suggest restarting loop diuretics (ex Bumex 1 mg) with goal to maintain slightly negative fluid balance -- Medications are appropriately dosed for renal function -- Maintain Sandoval to gravity for chronic urinary retention Renal cysts: -- Will require outpatient urology follow up
--- NOTE | 2017-08-01 10:20 | Pharmacy Progress Note ---
Pharmacy Abx Dose Short Note Date of Service Aug 01, 2017. Assessment & Plan Assessment 77 year old male receiving vancomycin/zosyn for treatment of UTI/ SSTI. Enterococcus growing in the urine susceptible to ampicillin, but will continue empiric antibiotics until assessed by ID. There is also corynebacterium in 1/2 BC most likely indicative of a contaminate. Day # 4 of antimicrobial therapy. Plan Vancomycin * Trough level of 15.4 mcg/mL yesterday is therapeutic, however renal function is improving. Given lag time in between doses, I gave a slight reload at 1750mg x1 then: * Change to 1500 mg IV every 18 hours * Goal trough level for : 10 to 15 mcg/mL * Trough or random level ordered for:as clinically indicated Pharmacy will continue to follow and will adjust dose/frequency as necessary. Thank you.
[2017-08-01] MEDS: PANTOprazole INJ 40 MG in SYRINGE 0 ML IV SCH (10:52)
--- NOTE | 2017-08-01 13:53 | Critical Care Progress Note ---
Critical Care Progress Note Date of Service Aug 01, 2017. ICU Day ICU Day Number: [address] Persaud Subjective During morning of evaluation patient was still intubated, shook his head no to pain or discomfort. Patient shook his head yes to desiring to have his breathing tube removed. Explained risks and benefits, possible pneumonia however not requiring frequent suctioning, decreasing vasoactive medication requirements. When asked if he still wants his breathing tube out, and informed we could replace it if he was not strong enough he paused for several seconds and then shook his head yes. Objective General - NAD, resting in bed Eyes - PERRL, EOMI No icterus, ENT -endotracheal tube present Neck - no JVD Lungs -coarse sounds bilaterally Heart - Reg rate and rhythm, Systolic murmur, Abdomen: Soft nontender nondistended Extremities - No edema, pedal pulses intact Neuro -alert following commands, gives thumbs-up Assessment & Plan PLAN: CV: * R IJ placed for central drug administration: * GOAL MAP >65 * Vasopressin discontinued decreasing amount of dobutamine * Holding antihypertensives Neuro: * Currently Alert * Monitor for changes * Pt denies pain or discomfort Resp: * Hypoxic respiratory failure * Patient tolerated CPAP 5 over 5 overnight * Minimal suctioning at this point secretions have a change from initial presentation * I believe the patient is strong enough to clear his secretions burden, will attempt extubation, patient still at risk for respiratory failure and reintubation Fluids/Renal: * Goal to be net negative, Lasix 30 mg twice a day * Patient requiring dobutamine, however, decreasing * Sandoval (Chronic) in place * For hygiene given stage III decubiti * Patient has ampicillin sensitive enterococcus growing from urine ID: * Abx: Correction from yesterday's note patient is continued on Zosyn for possible pneumonia * MRSA Nasal Swab Positive * Afebrile: > 24 hours * Known Ulcers on left buttocks: wound consult placed and following. Dressing dry and intact GI/Nutrition: * Nothing by mouth while on high vasoactive medications * Continue home PPI Heme: * Coumadin increasing likely secondary to additional medications * Continue to monitor Endocrine: * TSH normal * Blood sugars within acceptable range CODE STATUS: DO NOT RESUSCITATE in event of cardiac arrest. I have personally spent 60 minutes of critical care time in the direct management of this patient. This is a life/limb threatening event. This includes time spent evaluating patient, direct bedside care, chart review, placing orders, interpretation of diagnostic studies, discussion with consultants, patient, and/or family members regarding treatment decisions, as well as other required patient management activities. This time is exclusive of all separately billable procedures, and teaching time and separate from and in addition to any other critical care service time. Consults & Procedures Consultants: Wound care nurse Neurology: Dennis Nephrology: Eric Infectious disease: Frost Procedures: Right internal jugular triple-lumen placed 07/29/2017 Left radial arterial line placed 07/29/2017 - discontinued 07/31/2017 Endotracheal intubation 07/30/2017 extubation 08/01/2017 Limited transthoracic echocardiogram 07/29/2017 Limited bedside lung ultrasound 07/29/2017 Data Medications: Current Inpatient Medications Medications (Trade) Dose Ordered Sig/Deion Route Start Time Stop Time Status Last Admin Dose Admin Amiodarone HCl (Cordarone Tab) 200 mg QAM PO 07/29/17 09:00 08/28/17 08:59 08/01/17 07:26 200 MG Ascorbic Acid (Vitamin C Tab) 500 mg QAM PO 07/29/17 09:00 08/28/17 08:59 07/31/17 09:08 500 MG Levothyroxine Sodium (Synthroid Tab) 25 mcg DAILYBB PO 07/29/17 06:30 08/28/17 06:59 08/01/17 05:56 25 MCG Pravastatin Sodium (Pravachol Tab) 40 mg HS PO 07/29/17 21:00 08/28/17 20:59 07/31/17 20:57 40 MG Warfarin Sodium (Coumadin Tab) 5 mg DAILY@16 PO 07/29/17 16:00 08/28/17 15:59 Future Hold 07/29/17 16:36 5 MG Acetaminophen (Tylenol Tab) 650 mg Q4H PRN PO 07/28/17 22:00 08/27/17 21:59 07/30/17 03:11 650 MG Al Hydrox/Mg Hydrox/Simethicone (Maalox Max Susp) 15 ml Q4H PRN PO 07/28/17 22:00 08/27/17 21:59 Magnesium Hydroxide (Milk Of Magnesia Susp) 30 ml Q6H PRN PO 07/28/17 22:00 08/27/17 21:59 Polyethylene (Miralax Powder Packet) 17 gm DAILY PRN PO 07/28/17 22:00 08/27/17 21:59 Ondansetron HCl (Zofran Inj) 4 mg Q6H PRN IV 07/28/17 22:00 08/27/17 21:59 Miscellaneous (Iv Fluids Completed) 1 ea PRN PRN N/A 07/29/17 02:30 07/29/18 02:29 Piperacillin Sod/ Tazobactam Sod 3.375 gm/Dextrose 115 ml @ 28.75 mls/ hr Q8H IV 07/29/17 22:00 08/13/17 21:59 08/01/17 05:56 28.75 MLS/HR Miscellaneous Information (Consult) 1 ea UD PRN N/A 07/29/17 16:00 08/13/17 15:59 Miscellaneous Information (Consult) 1 ea UD PRN N/A 07/29/17 16:00 08/28/17 15:59 Dopamine HCl/ Dextrose 0 ml @ 0 mls/hr Q0M PRN IV 07/29/17 20:23 08/28/17 20:22 Dobutamine HCl 0 ml @ 0 mls/hr Q0M PRN IV 07/30/17 00:08 08/29/17 00:07 07/31/17 22:30 30.7 MLS/HR Norepinephrine Bitartrate 8 mg/ Dextrose 508 ml @ 0 mls/hr Q0M PRN IV 07/30/17 05:05 08/29/17 05:04 07/30/17 17:55 24 MLS/HR Midazolam HCl (Versed Inj) 2 mg Q2H PRN IV 07/30/17 08:45 08/29/17 08:44 07/30/17 11:34 2 MG Fentanyl Citrate (Fentanyl Inj) 100 mcg Q2H PRN IV 07/30/17 08:45 08/13/17 08:44 07/30/17 13:55 100 MCG Vasopressin 50 units/Sodium Chloride 502.5 ml @ 24 mls/hr [id number] IV 07/30/17 08:45 08/29/17 08:44 07/31/17 05:46 24 MLS/HR Pantoprazole Sodium 40 mg/ Syringe 10 ml @ 5 mls/min DAILY@11 IV 07/30/17 11:00 3/2/18 10:59 08/01/17 10:52 5 MLS/MIN Aspirin (Aspirin Chew) 81 mg QAM PO 07/31/17 09:00 08/30/17 08:59 08/01/17 07:26 81 MG Albuterol/ Ipratropium (Duoneb) 3 ml QIDR PRN INH 07/30/17 18:00 08/29/17 17:59 Docusate Sodium (coLACE SYRUP) 100 mg QPM PO 07/30/17 21:30 08/29/17 21:29 07/31/17 20:57 100 MG Potassium Chloride 20 meq/ Prmx 100 ml @ 50 mls/hr Q2H IV 08/01/17 09:30 08/01/17 15:29 08/01/17 11:45 50 MLS/HR Furosemide 30 mg/ Syringe 3 ml @ 4 mls/min BID IV 08/01/17 09:00 08/31/17 08:59 08/01/17 09:33 4 MLS/MIN Vancomycin HCl 1500 mg/Sodium Chloride 530 ml @ 200 mls/hr Q18H IV 08/01/17 19:00 08/06/17 18:59 Vital Signs: Date Time Temp Pulse Resp B/P (MAP) Pulse Ox O2 Delivery O2 Flow Rate FiO2 08/01/17 12:30 78 114/56 (75) 97 08/01/17 12:00 Oxymask 4.0 08/01/17 12:00 81 111/55 (73) 98 Oxymask 4.0 08/01/17 12:00 37.0 81 19 112/50 (70) 98 Oxymask 4.0 08/01/17 11:30 81 112/55 (74) 98 Oxymask 4.0 08/01/17 11:00 75 97/49 (65) 91 Oxymask 4.0 08/01/17 10:30 81 114/49 (70) 97 Oxymask 4.0 08/01/17 10:00 76 123/63 (83) 94 Oxymask 4.0 08/01/17 09:30 79 22 100/48 (65) 98 Oxymask 4.0 08/01/17 09:00 80 20 112/42 (65) 96 Oxymask 4.0 2/2/18 08:30 81 19 107/53 (71) 95 CPAP 45 2/2/18 08:00 37.1 80 19 112/50 (70) 97 CPAP 45 2/2/18 08:00 CPAP Mechanical Ventilator 2/2/18 08:00 45 2/2/18 07:58 45 2/2/18 07:58 CPAP 45 2/2/18 07:30 80 20 112/45 (67) 97 CPAP 45 2/2/18 07:00 80 11 105/46 (65) 96 CPAP 45 2/2/18 06:30 81 17 107/51 (69) 96 CPAP 45 2/2/18 06:01 77 15 97/52 (67) 95 CPAP 45 2/2/18 05:31 79 22 92/44 (60) 97 CPAP 45 2/2/18 05:14 45 2/2/18 05:01 78 18 103/47 (65) 100 CPAP 45 2/2/18 04:31 82 21 100/56 (71) 96 CPAP 45 2/2/18 04:05 37.1 2/2/18 04:01 80 14 107/56 (73) 96 CPAP 45 2/2/18 04:00 45 2/2/18 04:00 CPAP 45 2/2/18 03:31 81 18 100/42 (61) 94 CPAP 45 2/2/18 03:22 79 19 95/44 (61) 97 CPAP 45 2/2/18 03:06 80 17 93/39 (57) 94 CPAP 45 2/2/18 03:01 87 21 86/49 (61) 95 CPAP 45 2/2/18 02:31 84 19 104/47 (66) 94 CPAP 45 2/2/18 02:27 78 19 102/45 (64) 98 CPAP 45 2/2/18 02:18 50 2/2/18 02:18 80 17 102/45 (64) 99 CPAP 45 2/2/18 02:00 80 22 93/44 (60) 96 CPAP 55 2/2/18 01:30 84 16 100/54 (69) 99 CPAP 55 2/2/18 01:00 88 14 113/45 (67) 97 CPAP 55 2/2/18 00:14 90 18 102/54 (70) 95 CPAP 55 2/2/18 00:01 55 2/2/18 00:01 CPAP 55 07/31/17 23:48 89 17 118/50 (72) 96 CPAP 55 07/31/17 23:39 50 07/31/17 23:13 37.0 07/31/17 23:00 89 20 119/61 (80) 98 CPAP 55 07/31/17 22:08 90 14 117/51 (73) 95 CPAP 55 07/31/17 22:00 90 19 112/55 (74) 95 CPAP 55 07/31/17 21:57 93 18 104/48 (66) 96 CPAP 55 07/31/17 21:01 88 20 132/61 (84) 96 CPAP 55 07/31/17 20:28 50 07/31/17 20:01 37.1 90 17 130/65 (86) 97 CPAP 55 07/31/17 20:00 CPAP 55 07/31/17 20:00 55 07/31/17 19:01 90 21 129/63 (85) 98 CPAP 55 07/31/17 18:00 89 20 134/61 (85) 98 CPAP 55 07/31/17 17:32 50 07/31/17 16:00 CPAP 55 07/31/17 16:00 37.0 90 20 110/71 (84) 98 CPAP 55 07/31/17 16:00 55 07/31/17 14:35 55 07/31/17 14:00 86 18 137/64 (88) 96 Laboratory Results: Last 24 Hours Test 07/31/17 13:54 07/31/17 23:00 08/01/17 05:50 08/01/17 06:24 Sodium Level 131 mmol/L 132 mmol/L Potassium Level 3.9 mmol/L 3.1 mmol/L Chloride Level 93 mmol/L 94 mmol/L Carbon Dioxide Level 31 mmol/L 33 mmol/L Anion Gap 7.0 mmol/L 5.0 mmol/L Blood Urea Nitrogen 15 mg/dl 13 mg/dl Creatinine 1.15 mg/dl 1.03 mg/dl Est Creatinine Clear Calc Drug Dose 59.0 ml/min 65.9 ml/min Estimated GFR () 70.7 80.8 Estimated GFR (Non- 61.0 69.7 BUN/Creatinine Ratio 13.0 12.3 Random Glucose 125 mg/dl 82 mg/dl Calcium Level 7.0 mg/dl 7.2 mg/dl Bedside Glucose 109 mg/dl White Blood Count 7.02 K/uL Red Blood Count 2.99 M/uL Hemoglobin 7.9 g/dL Hematocrit 25.7 % Mean Corpuscular Volume 86.0 fL Mean Corpuscular Hemoglobin 26.4 pg Mean Corpuscular Hemoglobin Concent 30.7 g/dl RDW Standard Deviation 52.3 fL RDW Coefficient of Variation 16.6 % Platelet Count 183 K/uL Mean Platelet Volume 10.6 fL Prothrombin Time 66.6 SECONDS Prothromb Time International Ratio 6.6 Phosphorus Level 2.3 mg/dl Magnesium Level 1.9 mg/dl Venous Blood pH 7.39 Venous Blood Partial Pressure CO2 56 mmHg Venous Blood Partial Pressure O2 31 mmHg Venous Blood HCO3 33 mmol/L Venous Blood Oxygen Saturation < 60.0 % Venous Blood Base Excess 7.1 mEq/L
--- NOTE | 2017-08-01 16:03 | Hospitalist Progress Note ---
Hospitalist Progress Note Date of Service Aug 01, 2017. (Paulette Palumbo PA-C) Subjective Pt evaluation today including: conversation w/ patient, physical exam, chart review, lab review, review of studies, review of inpatient medication list Patient seen and evaluated. Extubated this morning and maintaining airway. Has a hoarse voice but verbalizes no other complaints. Continues to Dobutamine but continues to be titrated down. Vitals acceptable. Urine output is adequate. INR continues to increase but no active bleeding Additional Comments: ROS: General/Constitutional: Denies fever/chills, fatigue, weakness ENT: + hoarse voice Denies nasal drainage, hearing loss, sore throat, trouble swallowing Cardiovascular: Denies chest pain, palpitations, edema Respiratory: + cough GI: Denies nausea, vomiting, abdominal pain, constipation, diarrhea : Denies dysuria or Sandoval irritation Musculoskeletal: Denies joint/muscle aches Neurologic: Denies dizziness/lightheadedness, numbness/tingling, weakness Hematologic/Lymphatic: Denies bleeding Skin: Denies rash (Paulette Palumbo PA-C) Medications Current Inpatient Medications Medications (Trade) Dose Ordered Sig/Deion Route Start Time Stop Time Status Last Admin Dose Admin Amiodarone HCl (Cordarone Tab) 200 mg QAM PO 07/29/17 09:00 08/28/17 08:59 08/01/17 07:26 200 MG Ascorbic Acid (Vitamin C Tab) 500 mg QAM PO 07/29/17 09:00 08/28/17 08:59 07/31/17 09:08 500 MG Levothyroxine Sodium (Synthroid Tab) 25 mcg DAILYBB PO 07/29/17 06:30 08/28/17 06:59 08/01/17 05:56 25 MCG Pravastatin Sodium (Pravachol Tab) 40 mg HS PO 07/29/17 21:00 08/28/17 20:59 07/31/17 20:57 40 MG Warfarin Sodium (Coumadin Tab) 5 mg DAILY@16 PO 07/29/17 16:00 08/28/17 15:59 Future Hold 07/29/17 16:36 5 MG Acetaminophen (Tylenol Tab) 650 mg Q4H PRN PO 07/28/17 22:00 08/27/17 21:59 07/30/17 03:11 650 MG Al Hydrox/Mg Hydrox/Simethicone (Maalox Max Susp) 15 ml Q4H PRN PO 07/28/17 22:00 08/27/17 21:59 Magnesium Hydroxide (Milk Of Magnesia Susp) 30 ml Q6H PRN PO 07/28/17 22:00 08/27/17 21:59 Polyethylene (Miralax Powder Packet) 17 gm DAILY PRN PO 07/28/17 22:00 08/27/17 21:59 Ondansetron HCl (Zofran Inj) 4 mg Q6H PRN IV 07/28/17 22:00 08/27/17 21:59 Miscellaneous (Iv Fluids Completed) 1 ea PRN PRN N/A 07/29/17 02:30 07/29/18 02:29 Piperacillin Sod/ Tazobactam Sod 3.375 gm/Dextrose 115 ml @ 28.75 mls/ hr Q8H IV 07/29/17 22:00 08/13/17 21:59 08/01/17 14:02 28.75 MLS/HR Miscellaneous Information (Consult) 1 ea UD PRN N/A 07/29/17 16:00 08/13/17 15:59 Miscellaneous Information (Consult) 1 ea UD PRN N/A 07/29/17 16:00 08/28/17 15:59 Dopamine HCl/ Dextrose 0 ml @ 0 mls/hr Q0M PRN IV 07/29/17 20:23 08/28/17 20:22 Dobutamine HCl 0 ml @ 0 mls/hr Q0M PRN IV 07/30/17 00:08 08/29/17 00:07 07/31/17 22:30 30.7 MLS/HR Norepinephrine Bitartrate 8 mg/ Dextrose 508 ml @ 0 mls/hr Q0M PRN IV 07/30/17 05:05 08/29/17 05:04 07/30/17 17:55 24 MLS/HR Midazolam HCl (Versed Inj) 2 mg Q2H PRN IV 07/30/17 08:45 08/29/17 08:44 07/30/17 11:34 2 MG Fentanyl Citrate (Fentanyl Inj) 100 mcg Q2H PRN IV 07/30/17 08:45 08/13/17 08:44 07/30/17 13:55 100 MCG Vasopressin 50 units/Sodium Chloride 502.5 ml @ 24 mls/hr [id number] IV 07/30/17 08:45 08/29/17 08:44 07/31/17 05:46 24 MLS/HR Pantoprazole Sodium 40 mg/ Syringe 10 ml @ 5 mls/min DAILY@11 IV 07/30/17 11:00 08/29/17 10:59 08/01/17 10:52 5 MLS/MIN Aspirin (Aspirin Chew) 81 mg QAM PO 07/31/17 09:00 08/30/17 08:59 08/01/17 07:26 81 MG Albuterol/ Ipratropium (Duoneb) 3 ml QIDR PRN INH 07/30/17 18:00 08/29/17 17:59 Docusate Sodium (coLACE SYRUP) 100 mg QPM PO 07/30/17 21:30 08/29/17 21:29 07/31/17 20:57 100 MG Furosemide 30 mg/ Syringe 3 ml @ 4 mls/min BID IV 08/01/17 09:00 08/31/17 08:59 08/01/17 09:33 4 MLS/MIN Vancomycin HCl 1500 mg/Sodium Chloride 530 ml @ 200 mls/hr Q18H IV 08/01/17 19:00 08/06/17 18:59 (Paulette Palumbo, JUHI) Objective Vital Signs Date Time Temp Pulse Resp B/P (MAP) Pulse Ox O2 Delivery O2 Flow Rate FiO2 08/01/17 15:30 84 123/55 (77) 97 Oxymask 4.0 08/01/17 15:00 81 116/62 (80) 97 Oxymask 4.0 08/01/17 14:30 80 99/54 (69) 98 Oxymask 4.0 08/01/17 14:06 87 99/51 (67) 92 Oxymask 4.0 08/01/17 14:00 87 99/52 (68) 94 Oxymask 4.0 08/01/17 13:58 83 114/53 (73) 99 Oxymask 4.0 08/01/17 13:30 81 108/54 (72) 100 Oxymask 4.0 2/2/18 13:00 79 112/56 (74) 99 Oxymask 4.0 18 12:30 78 114/56 (75) 97 2/18 12:00 Oxymask 4.0 18 12:00 81 111/55 (73) 98 Oxymask 4.0 218 12:00 37.0 81 19 112/50 (70) 98 Oxymask 4.0 18 11:30 81 112/55 (74) 98 Oxymask 4.0 18 11:00 75 97/49 (65) 91 Oxymask 4.0 18 10:30 81 114/49 (70) 97 Oxymask 4.0 18 10:00 76 123/63 (83) 94 Oxymask 4.0 18 09:30 79 22 100/48 (65) 98 Oxymask 4.0 08/01/17 09:00 80 20 112/42 (65) 96 Oxymask 4.0 08/01/17 08:30 81 19 107/53 (71) 95 CPAP 45 2/2/18 08:00 37.1 80 19 112/50 (70) 97 CPAP 45 2/2/18 08:00 CPAP Mechanical Ventilator 08/01/17 08:00 45 2/2/18 07:58 45 2/2/18 07:58 CPAP 45 2/2/18 07:30 80 20 112/45 (67) 97 CPAP 45 2/2/18 07:00 80 11 105/46 (65) 96 CPAP 45 2/2/18 06:30 81 17 107/51 (69) 96 CPAP 45 2/2/18 06:01 77 15 97/52 (67) 95 CPAP 45 2/2/18 05:31 79 22 92/44 (60) 97 CPAP 45 2/2/18 05:14 45 2/2/18 05:01 78 18 103/47 (65) 100 CPAP 45 2/2/18 04:31 82 21 100/56 (71) 96 CPAP 45 2/2/18 04:05 37.1 22/18 04:01 80 14 107/56 (73) 96 CPAP 45 2/2/18 04:00 45 2/2/18 04:00 CPAP 45 2/2/18 03:31 81 18 100/42 (61) 94 CPAP 45 2/2/18 03:22 79 19 95/44 (61) 97 CPAP 45 2/2/18 03:06 80 17 93/39 (57) 94 CPAP 45 2/2/18 03:01 87 21 86/49 (61) 95 CPAP 45 2/2/18 02:31 84 19 104/47 (66) 94 CPAP 45 2/2/18 02:27 78 19 102/45 (64) 98 CPAP 45 2/2/18 02:18 50 2/2/18 02:18 80 17 102/45 (64) 99 CPAP 45 2/2/18 02:00 80 22 93/44 (60) 96 CPAP 55 2/2/18 01:30 84 16 100/54 (69) 99 CPAP 55 2/2/18 01:00 88 14 113/45 (67) 97 CPAP 55 2/2/18 00:14 90 18 102/54 (70) 95 CPAP 55 2/2/18 00:01 55 2/2/18 00:01 CPAP 55 2/1/18 23:48 89 17 118/50 (72) 96 CPAP 55 2/1/18 23:39 50 2/1/18 23:13 37.0 2/1/18 23:00 89 20 119/61 (80) 98 CPAP 55 2/1/18 22:08 90 14 117/51 (73) 95 CPAP 55 2/1/18 22:00 90 19 112/55 (74) 95 CPAP 55 2/1/18 21:57 93 18 104/48 (66) 96 CPAP 55 2/1/18 21:01 88 20 132/61 (84) 96 CPAP 55 2/1/18 20:28 50 2/1/18 20:01 37.1 90 17 130/65 (86) 97 CPAP 55 2/1/18 20:00 CPAP 55 2/1/18 20:00 55 2/1/18 19:01 90 21 129/63 (85) 98 CPAP 55 2/1/18 18:00 89 20 134/61 (85) 98 CPAP 55 2/1/18 17:32 50 2/1/18 16:00 CPAP 55 2/1/18 16:00 37.0 90 20 110/71 (84) 98 CPAP 55 2/1/18 16:00 55 (Paulette Palumbo PA-C) Physical Exam Notes: General Appearance: WDWN in NAD who is A&O x 3; voice is hoarse HEENT: Head is normocephalic/atraumatic; edentulous; Neck: Supple; Trachea midline; Neg JVD; R IJ in place Heart: RRR with systolic murmur Lungs: Course in anterior uribe bilaterally with better aeration; Respirations unlabored; Neg accessory muscle use Abdomen: Soft, non-tender, non-distended; Positive BS x 4 quadrants Extremities: Capillary refill < 2 seconds; Neg cyanosis or edema Neurological: Speech clear; Neg focal neurologic deficits Psychiatric: Appropriate mood/affect Skin: Normal Color; Warm/Dry (Paulette Palumbo PA-C) Laboratory Results Last 24 Hours Test 07/31/17 23:00 08/01/17 05:50 08/01/17 06:24 Bedside Glucose 109 mg/dl White Blood Count 7.02 K/uL Red Blood Count 2.99 M/uL Hemoglobin 7.9 g/dL Hematocrit 25.7 % Mean Corpuscular Volume 86.0 fL Mean Corpuscular Hemoglobin 26.4 pg Mean Corpuscular Hemoglobin Concent 30.7 g/dl RDW Standard Deviation 52.3 fL RDW Coefficient of Variation 16.6 % Platelet Count 183 K/uL Mean Platelet Volume 10.6 fL Prothrombin Time 66.6 SECONDS Prothromb Time International Ratio 6.6 Sodium Level 132 mmol/L Potassium Level 3.1 mmol/L Chloride Level 94 mmol/L Carbon Dioxide Level 33 mmol/L Anion Gap 5.0 mmol/L Blood Urea Nitrogen 13 mg/dl Creatinine 1.03 mg/dl Est Creatinine Clear Calc Drug Dose 65.9 ml/min Estimated GFR () 80.8 Estimated GFR (Non- 69.7 BUN/Creatinine Ratio 12.3 Random Glucose 82 mg/dl Calcium Level 7.2 mg/dl Phosphorus Level 2.3 mg/dl Magnesium Level 1.9 mg/dl Venous Blood pH 7.39 Venous Blood Partial Pressure CO2 56 mmHg Venous Blood Partial Pressure O2 31 mmHg Venous Blood HCO3 33 mmol/L Venous Blood Oxygen Saturation < 60.0 % Venous Blood Base Excess 7.1 mEq/L (Paulette Palumbo PA-C) Assessment and Plan Mr. Garcia is a 77 year old man here for increased weakness Acute Hypoxic Hypercarbic Respiratory Failure 2/2 Acute on Chronic Systolic CHF and Multifocal Pneumonia - HCAP Coverage: IMPROVING - Patient was intubated on 07/30 and respiratory acidosis improving on subsequent draws and extubated on 08/01 - Zosyn and Vancomycin - Currently at a slight negative fluid balance and continue diuresis - Infectious Disease following - plan as above - Intensivists following - appreciate management Severe Sepsis with Septic Shock with Possible Cardiogenic Shock: Multifocal PNA vs Urinary Source vs CHF: - Currently in ICU on pressor support - appreciate management by intensivists - vitals improving and urine output improving, inotropic/pressor support continue to wean only on Dobutamine at this time SANTHOSH on CKD Stage III: RESOLVED - Nephrology following - appreciate recommendations - avoid nephrotoxins and maintain a slight negative fluid balance Hyperkalemia: RESOLVED - Appears that he continued supplementation despite DC of Bumex at [facility] but mildly hypokalemic at this time - continue to monitor and manage CAD S/P CABG; AAA/Aortic Dissection; S/P ICD/Pacer; Acute Systolic CHF; Atrial Fibrillation: Supratherapeutic INR - Has bovine valve - INR goal 2-3 - Amiodarone 200 mg daily, Pravastatin 40 mg daily, and ASA 81 mg daily - Hold Toprol XL and Ramipril; Hold Coumadin 2/2 supratherapeutic INR and trend as there is no signs of active bleeding -- Likely continues to increase due to interactions with other medications vs possible relation to shock/liver? H/O Transverse Myelitis: STABLE - Weakness does not appear to be related to this - Neuro was consulted DVT Prophylaxis: Supratherapeutic INR Code Status: DO NOT RESUSCITATE for cardiac arrest - Consented to intubation Disposition: - Await clinical course; Palliative care consulted - Patient is progressing and maintaining airway off vent - PT/OT evaluations to assist with discharge planning Continued [facility] stay due to: multiple IV medications needed Discharge planning: uncertain (Paulette Palumbo, RUDDYC) Reviewed: Pt Seen/Exam by Me (Yoli Graves DO) History Pt is again much improved. On facemask and doing well. Holding on PO for now. Denies chest pain, SOB. Agree with HPI/ROS as noted by PA. (Yoli Graves DO) General Appearance: WD/WN, no apparent distress Eye Exam: bilateral eye normal inspection, bilateral eye other (normal sclera) Respiratory: normal breath sounds, no respiratory distress Cardiovascular: normal peripheral pulses, regular rate, rhythm Gastrointestinal: non tender, soft Extremities: non-tender, no pedal edema Neurologic/Psychiatric: alert, normal mood/affect, oriented x 3 Skin Characteristics: normal color, warm/dry (Yoli Graves DO) Assessment/Plan Agree with plan as outlined above Pt with shock of uncertain etiology Tolerating extubation well Tolerating d/c levaphed, monitor INR continues to increase without s/sx of bleeding, management as per ICU ECHO noted (Yoli Graves, )
[2017-08-01] MEDS: VANCOMYCIN INJ 1,500 MG in SODIUM CHLORIDE 0.9% 500ML 500 ML IV SCH (18:56)
--- NOTE | 2017-08-01 19:08 | Infectious Disease Progress Nt ---
Progress Note Date of Service Aug 01, 2017. Subjective Pt evaluation today including: conversation w/ patient, physical exam, chart review, lab review, review of studies, conversation w/ end user consultant, review of inpatient medication list Patient extubated successfully. Has some hoarseness of his voice, but voices no new complaints. Remains afebrile. More hemodynamically stable. Cultures remain unrevealing All Other Systems: Reviewed and Negative Medications Current Inpatient Medications Medications (Trade) Dose Ordered Sig/Deion Route Start Time Stop Time Status Last Admin Dose Admin Amiodarone HCl (Cordarone Tab) 200 mg QAM PO 07/29/17 09:00 08/28/17 08:59 08/01/17 07:26 200 MG Ascorbic Acid (Vitamin C Tab) 500 mg QAM PO 07/29/17 09:00 08/28/17 08:59 07/31/17 09:08 500 MG Levothyroxine Sodium (Synthroid Tab) 25 mcg DAILYBB PO 07/29/17 06:30 08/28/17 06:59 08/01/17 05:56 25 MCG Pravastatin Sodium (Pravachol Tab) 40 mg HS PO 07/29/17 21:00 08/28/17 20:59 07/31/17 20:57 40 MG Warfarin Sodium (Coumadin Tab) 5 mg DAILY@16 PO 07/29/17 16:00 08/28/17 15:59 Future Hold 07/29/17 16:36 5 MG Acetaminophen (Tylenol Tab) 650 mg Q4H PRN PO 07/28/17 22:00 08/27/17 21:59 07/30/17 03:11 650 MG Al Hydrox/Mg Hydrox/Simethicone (Maalox Max Susp) 15 ml Q4H PRN PO 07/28/17 22:00 08/27/17 21:59 Magnesium Hydroxide (Milk Of Magnesia Susp) 30 ml Q6H PRN PO 07/28/17 22:00 08/27/17 21:59 Polyethylene (Miralax Powder Packet) 17 gm DAILY PRN PO 07/28/17 22:00 08/27/17 21:59 Ondansetron HCl (Zofran Inj) 4 mg Q6H PRN IV 07/28/17 22:00 08/27/17 21:59 Miscellaneous (Iv Fluids Completed) 1 ea PRN PRN N/A 1/30/18 02:30 07/29/18 02:29 Piperacillin Sod/ Tazobactam Sod 3.375 gm/Dextrose 115 ml @ 28.75 mls/ hr Q8H IV 07/29/17 22:00 08/13/17 21:59 08/01/17 14:02 28.75 MLS/HR Miscellaneous Information (Consult) 1 ea UD PRN N/A 07/29/17 16:00 08/13/17 15:59 Miscellaneous Information (Consult) 1 ea UD PRN N/A 07/29/17 16:00 08/28/17 15:59 Dopamine HCl/ Dextrose 0 ml @ 0 mls/hr Q0M PRN IV 07/29/17 20:23 08/28/17 20:22 Dobutamine HCl 0 ml @ 0 mls/hr Q0M PRN IV 07/30/17 00:08 08/29/17 00:07 07/31/17 22:30 30.7 MLS/HR Norepinephrine Bitartrate 8 mg/ Dextrose 508 ml @ 0 mls/hr Q0M PRN IV 07/30/17 05:05 08/29/17 05:04 07/30/17 17:55 24 MLS/HR Midazolam HCl (Versed Inj) 2 mg Q2H PRN IV 07/30/17 08:45 08/29/17 08:44 07/30/17 11:34 2 MG Fentanyl Citrate (Fentanyl Inj) 100 mcg Q2H PRN IV 07/30/17 08:45 08/13/17 08:44 07/30/17 13:55 100 MCG Vasopressin 50 units/Sodium Chloride 502.5 ml @ 24 mls/hr [id number] IV 07/30/17 08:45 08/29/17 08:44 07/31/17 05:46 24 MLS/HR Pantoprazole Sodium 40 mg/ Syringe 10 ml @ 5 mls/min DAILY@11 IV 07/30/17 11:00 08/29/17 10:59 08/01/17 10:52 5 MLS/MIN Aspirin (Aspirin Chew) 81 mg QAM PO 07/31/17 09:00 08/30/17 08:59 08/01/17 07:26 81 MG Albuterol/ Ipratropium (Duoneb) 3 ml QIDR PRN INH 07/30/17 18:00 08/29/17 17:59 Docusate Sodium (coLACE SYRUP) 100 mg QPM PO 07/30/17 21:30 08/29/17 21:29 07/31/17 20:57 100 MG Vancomycin HCl 1500 mg/Sodium Chloride 530 ml @ 200 mls/hr Q18H IV 08/01/17 19:00 08/06/17 18:59 08/01/17 18:56 200 MLS/HR Objective Vital Signs Date Time Temp Pulse Resp B/P (MAP) Pulse Ox O2 Delivery O2 Flow Rate FiO2 08/01/17 18:00 87 20 111/54 (73) 95 Nasal Cannula 4.0 Oxymask 08/01/17 17:00 76 18 110/51 (70) 98 Nasal Cannula 4.0 Oxymask 08/01/17 16:00 Oxymask 4.0 08/01/17 16:00 37.0 75 20 110/56 (74) 98 Oxymask 4.0 08/01/17 15:30 84 123/55 (77) 97 Oxymask 4.0 08/01/17 15:00 81 116/62 (80) 97 Oxymask 4.0 08/01/17 14:30 80 99/54 (69) 98 Oxymask 4.0 08/01/17 14:06 87 99/51 (67) 92 Oxymask 4.0 08/01/17 14:00 87 99/52 (68) 94 Oxymask 4.0 08/01/17 13:58 83 114/53 (73) 99 Oxymask 4.0 08/01/17 13:30 81 108/54 (72) 100 Oxymask 4.0 08/01/17 13:00 79 112/56 (74) 99 Oxymask 4.0 08/01/17 12:30 78 114/56 (75) 97 08/01/17 12:00 Oxymask 4.0 08/01/17 12:00 81 111/55 (73) 98 Oxymask 4.0 08/01/17 12:00 37.0 81 19 112/50 (70) 98 Oxymask 4.0 08/01/17 11:30 81 112/55 (74) 98 Oxymask 4.0 2/2/18 11:00 75 97/49 (65) 91 Oxymask 4.0 2/2/18 10:30 81 114/49 (70) 97 Oxymask 4.0 2/2/18 10:00 76 123/63 (83) 94 Oxymask 4.0 2/2/18 09:30 79 22 100/48 (65) 98 Oxymask 4.0 2/2/18 09:00 80 20 112/42 (65) 96 Oxymask 4.0 2/2/18 08:30 81 19 107/53 (71) 95 CPAP 45 2/2/18 08:00 37.1 80 19 112/50 (70) 97 CPAP 45 2/2/18 08:00 CPAP Mechanical Ventilator 2218 08:00 45 2/2/18 07:58 45 2/2/18 07:58 CPAP 45 2/2/18 07:30 80 20 112/45 (67) 97 CPAP 45 2/2/18 07:00 80 11 105/46 (65) 96 CPAP 45 2/2/18 06:30 81 17 107/51 (69) 96 CPAP 45 2/2/18 06:01 77 15 97/52 (67) 95 CPAP 45 2/2/18 05:31 79 22 92/44 (60) 97 CPAP 45 2/2/18 05:14 45 2/2/18 05:01 78 18 103/47 (65) 100 CPAP 45 2/2/18 04:31 82 21 100/56 (71) 96 CPAP 45 2/2/18 04:05 37.1 2/2/18 04:01 80 14 107/56 (73) 96 CPAP 45 2/2/18 04:00 45 2/2/18 04:00 CPAP 45 2/2/18 03:31 81 18 100/42 (61) 94 CPAP 45 2/2/18 03:22 79 19 95/44 (61) 97 CPAP 45 2/2/18 03:06 80 17 93/39 (57) 94 CPAP 45 2/2/18 03:01 87 21 86/49 (61) 95 CPAP 45 2/2/18 02:31 84 19 104/47 (66) 94 CPAP 45 2/2/18 02:27 78 19 102/45 (64) 98 CPAP 45 2/2/18 02:18 50 2/18 02:18 80 17 102/45 (64) 99 CPAP 45 08/01/17 02:00 80 22 93/44 (60) 96 CPAP 55 08/01/17 01:30 84 16 100/54 (69) 99 CPAP 55 08/01/17 01:00 88 14 113/45 (67) 97 CPAP 55 08/01/17 00:14 90 18 102/54 (70) 95 CPAP 55 08/01/17 00:01 55 08/01/17 00:01 CPAP 55 07/31/17 23:48 89 17 118/50 (72) 96 CPAP 55 07/31/17 23:39 50 07/31/17 23:13 37.0 07/31/17 23:00 89 20 119/61 (80) 98 CPAP 55 07/31/17 22:08 90 14 117/51 (73) 95 CPAP 55 07/31/17 22:00 90 19 112/55 (74) 95 CPAP 55 07/31/17 21:57 93 18 104/48 (66) 96 CPAP 55 07/31/17 21:01 88 20 132/61 (84) 96 CPAP 55 07/31/17 20:28 50 07/31/17 20:01 37.1 90 17 130/65 (86) 97 CPAP 55 07/31/17 20:00 CPAP 55 07/31/17 20:00 55 Physical Exam General Appearance: WD/WN, no apparent distress Eyes: normal inspection, EOMI, sclerae normal ENT: normal ENT inspection, pharynx normal, + muffled/hoarse voice Neck: supple, no adenopathy, thyroid normal, trachea midline Respiratory/Chest: chest non-tender, lungs clear, normal breath sounds, no respiratory distress Cardiovascular: regular rate, rhythm, no gallop, no murmur Abdomen: normal bowel sounds, non tender, soft, no organomegaly Extremities: non-tender, no calf tenderness Neurologic/Psychiatric: alert, normal mood/affect, oriented x 3 Skin: normal color, warm/dry, no rash Lymphatic: no adenopathy Laboratory Results RUN DATE: 07/31/17 [facility] LAB PAGE 1 RUN TIME: 1252 Specimen Inquiry PATIENT: KATHY LOREDO LOC: RUFINACU U # : [id number] AGE/SX: 77/M ROOM: [facility] REG : 07/28/[address]: Sandy Kidd MD : 1940 BED: 1 DIS : STATUS: ADM IN TLOC: SPEC #: [id number] GRAYSON: 07/28/17 STATUS: COMP REQ #: [id number] RECD: 07/28/[address]: Jerrod Pearce DO SOURCE: UR, CC ENTR: 07/28/[address] [facility] [address]: Connor Ellis MD, [facility]: Edilberto Valiente M.D. ORDERED: CULTURE URCLEAN Procedure Result Verified Site URINE CULTURE Final 07/31/17-1252 Organism 1 ENTEROCOCCUS FAECALIS COLONY COUNT 50,000 CFU/ml SENS SENSITIVITY TO FOLLOW 1. ENTEROCOCCUS FAECALIS Target Route Dose RX AB Cost M.I.C. IQ ------ ----- ------ -- ------ -------- - ------ AMPICILLIN S <=2 GENT SYNERGY R >500 VANCOMYCIN S 2 PENICILLIN S 8 CIPROFLOXACIN R >2 LEVOFLOXACIN R >4 DAPTOMYCIN S 1 NITROFURANTOIN S <=32 STREP SYNERGY R >1000 Streptomycin Synergy Screen R Gentamicin Synergy Screen R S = SENSITIVE I = INTERMEDIATE R = RESISTANT END OF REPORT Last 24 Hours Test 07/31/17 23:00 08/01/17 05:50 08/01/17 06:24 08/01/17 18:46 Bedside Glucose 109 mg/dl White Blood Count 7.02 K/uL Red Blood Count 2.99 M/uL Hemoglobin 7.9 g/dL Hematocrit 25.7 % Mean Corpuscular Volume 86.0 fL Mean Corpuscular Hemoglobin 26.4 pg Mean Corpuscular Hemoglobin Concent 30.7 g/dl RDW Standard Deviation 52.3 fL RDW Coefficient of Variation 16.6 % Platelet Count 183 K/uL Mean Platelet Volume 10.6 fL Prothrombin Time 66.6 SECONDS Prothromb Time International Ratio 6.6 Sodium Level 132 mmol/L Potassium Level 3.1 mmol/L Chloride Level 94 mmol/L Carbon Dioxide Level 33 mmol/L Anion Gap 5.0 mmol/L Blood Urea Nitrogen 13 mg/dl Creatinine 1.03 mg/dl Est Creatinine Clear Calc Drug Dose 65.9 ml/min Estimated GFR () 80.8 Estimated GFR (Non- 69.7 BUN/Creatinine Ratio 12.3 Random Glucose 82 mg/dl Calcium Level 7.2 mg/dl Phosphorus Level 2.3 mg/dl Magnesium Level 1.9 mg/dl Venous Blood pH 7.39 Venous Blood Partial Pressure CO2 56 mmHg Venous Blood Partial Pressure O2 31 mmHg Venous Blood HCO3 33 mmol/L Venous Blood Oxygen Saturation < 60.0 % Venous Blood Base Excess 7.1 mEq/L Patient Name: KATHY LOREDO Unit Number: [id number] Dictated: 08/01/17809 Transcribed: 08/01/17809 [facility] Printed Date/Time: [~ rep prt dt]/[~ rep prt tm] [~ rep ct labl] - [~ rep ct ivnm] [facility] [place] [place] [address] Dictated: 08/01/17809 Transcribed: 08/01/17809 [employer] Printed Date/Time: [~ rep prt dt]/[~ rep prt tm] [~ rep ct labl] - [~ rep ct ivnm] [~ rep ct add3]] CHEST ONE VIEW PORTABLE HISTORY: Respiratory failure. COMPARISON: Chest 07/31/2017. FINDINGS: The endotracheal tube terminates approximately 2.3 cm from the holly. Nasogastric tube is curled within the stomach. Left-sided pacemaker/defibrillator. Poststernotomy changes. No pneumothorax. Diffuse interstitial and vascular thickening is progressed. Old, healed bilateral rib fractures. Small area of herniated lung within the left lateral lung base. Trace bilateral pleural effusions. Left basilar densities have progressed. The heart remains enlarged. 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 Right jugular central venous catheter terminates in the SVC. IMPRESSION: 1. Progressive interstitial and vascular thickening with patchy airspace opacities could represent worsening pulmonary edema or a pneumonia. 2. Trace bilateral pleural effusions. 3. Left basilar densities have also progressed. 4. Satisfactory support line placement. Electronically signed by: Hugh Freeman M.D. 08/01/2017 8:14 AM Dictated Date/Time: 08/01/2017 8:10 AM The status of this report is Signed. Draft = Not yet reviewed or approved by Radiologist. Signed = Reviewed and approved by Radiologist. <AttendingPhy>Yoli Graves DO</AttendingPhy> <FamilyPhy>Yakov Richardson M.D.</FamilyPhy> <PrimaryPhy>Edilberto Valiente M.D.</PrimaryPhy> <UnitNumber> [id number]</UnitNumber> <VisitNumber>[id number]</VisitNumber> <PatientName> KATHY LOREDO</PatientName> <DateOfBirth>1940</DateOfBirth> <Location> C.MSICU</Location> <ServiceDate>07/28/17</ServiceDate> <MNE>ESINDI</MNE> < OrderingPhy>Magda García PA-C</OrderingPhy> <OrderingPhyMNE>f rep ord dr badillo</ OrderingPhyMNE> <DictatingPhyMNE>f rep dict dr badillo</DictatingPhyMNE> <CCListMNE> f rep ct mne</CCListMNE> <AdmittingPhyMNE>f pt admit dr badillo</AdmittingPhyMNE> < AttendingPhyMNE>f pt attend dr badillo</AttendingPhyMNE> <ConsultingPhyMNE>f pt consult dr badillo</ConsultingPhyMNE> <FamilyPhyMNE>f pt fam dr badillo</FamilyPhyMNE> <OtherPhyMNE>f pt other dr badillo</OtherPhyMNE> < PrimaryPhyMNE>f pt prim care dr badillo</PrimaryPhyMNE> <ReferringPhyMNE>f pt referring dr badillo</ReferringPhyMNE> Assessment and Plan (1) Hypotension (2) Pleural effusion Status: Acute (3) Hypoxia Status: Acute (4) Acute respiratory failure with hypoxia and hypercapnia Status: Acute (5) Hyperkalemia 77-year-old male with multiple medical comorbidities status post recent left hip surgery, now presents with acute respiratory failure requiring intubation, with urinalysis suggestive of infection, as well as gluteal decubitus with positive culture for methicillin sensitive Staph aureus. Given positive MRSA screen, vancomycin appropriate along with Zosyn . Will follow.
[2017-08-01 19:27] LABS: CALCIUM 7.6 mg/dl (8.5-10.1); CREATININE 1.03 mg/dl (0.60-1.40); POTASSIUM 3.4 mmol/L (3.5-5.1)
[2017-08-01] MEDS: PRAVASTATIN SOD 40 MG TAB PO SCH (20:57)
[2017-08-01] MEDS: DOCUSATE SODIUM 100 MG/10 ML UDC PO SCH (20:57)
[2017-08-02] VITALS (9 sets, daily range): BP systolic 92–120; BP diastolic 46–86; PULSE 69–95; TEMP 36.4–37; O2SAT 92–99
[2017-08-02] MEDS: POTASSIUM CHLORIDE 10 MEQ TABCR PO SCH ×3 (02:53→07:35)
[2017-08-02] MEDS: POT PHOSPHATE MONOBASIC W/ SOD TAB PO SCH ×3 (02:53→09:43)
[2017-08-02] MEDS: PIPERACILL/TAZOBAC IV 3.375 GM in DEXTROSE 5% 100ML 100 ML IV SCH ×3 (05:49→21:31)
[2017-08-02] MEDS: LEVOTHYROXINE 25 MCG TAB PO SCH (05:50)
[2017-08-02 06:02] LABS: HEMATOCRIT 29.6 % (42-52); HEMOGLOBIN 8.6 g/dL (14.0-18.0); MEAN CELL VOLUME 88.9 fL (80-100); MEAN CORPUSCULAR HEMOGLOBIN 25.8 pg (25-34); MEAN CORPUSCULAR HGB CONC 29.1 g/dl (32-36); MEAN PLATELET VOLUME 9.9 fL (7.4-10.4); PLATELET COUNT 183 K/uL (130-400); RED CELL DISTRIBUTION WIDTH CV 16.7 % (11.5-14.5); RED CELL DISTRIBUTION WIDTH SD 54.7 fL (36.4-46.3); WHITE BLOOD COUNT 5.85 K/uL (4.8-10.8)
[2017-08-02 06:25] LABS: CALCIUM 7.9 mg/dl (8.5-10.1); POTASSIUM 3.4 mmol/L (3.5-5.1)
[2017-08-02 06:27] LABS: INR 5.4 (0.9-1.1)
[2017-08-02 06:29] LABS: PHOSPHORUS 2.9 mg/dl (2.5-4.9)
[2017-08-02] MEDS ORDERED: POTASSIUM CHLORIDE 20 MEQ TABCR PO STA (06:55)
--- NOTE | 2017-08-02 07:27 | Critical Care Progress Note ---
Critical Care Progress Note Date of Service Aug 02, 2017. ICU Day ICU Day Number: [address] Persaud Subjective Had good nights sleep, no chest pain no shortness of breath, looking forward to breakfast Objective General - NAD, resting in bed Eyes - PERRL, EOMI No icterus, Neck - no JVD Lungs -improved aeration Heart - Reg rate and rhythm, Systolic murmur, Abdomen: Soft nontender nondistended Extremities - No edema, pedal pulses intact Neuro -alert Assessment & Plan PLAN: CV: * R IJ placed for central drug administration: * GOAL MAP >65 * Off all vasoactives * Holding antihypertensives - hope to start beta blockade in next 24 hours Neuro: * Currently Alert * Monitor for changes * Pt denies pain or discomfort Resp: * Hypoxic respiratory failure * Remained extubated for 24 hours * Will treat empirically for possible pneumonia with Zosyn given concern for healthcare acquired pneumonia in risk factors for pseudomonas empirically for 7 days Fluids/Renal: * Restarted Bumex 1 mg daily by mouth * Patient will get 2 additional doses of Bumex for mild contraction alkalosis given an elevated bicarbonate * Sandoval (Chronic) in place * For hygiene given stage III decubiti * Patient has ampicillin sensitive enterococcus growing from urine ID: * Abx: Correction from yesterday's note patient is continued on Zosyn for possible pneumonia * Planned empiric treatment of possible pneumonia for 7 days with Zosyn then would de-escalate ampicillin for an additional 7 days to treat complicated urinary tract infection and a Sandoval cannot be discontinued due to hygiene secondary to stage III decubiti * MRSA Nasal Swab Positive * IV vancomycin per ID recommendations * Afebrile: > 24 hours * Known Ulcers on left buttocks: wound consult placed and following. Dressing dry and intact GI/Nutrition: * AHA diet fluid restriction to 1500 MLS * No PPI noted on home medication regimen, we'll discontinue at this time as patient is eating Heme: * Coumadin increasing likely secondary to additional medications * Continue to monitor Endocrine: * TSH normal * Blood sugars within acceptable range CODE STATUS: DO NOT RESUSCITATE in event of cardiac arrest. * Patient should have POLST form completed prior to discharge Access: * Discontinue right IJ triple-lumen CVL * Given patient will require several more days of antibiotics I have consented the patient for a PICC line Patient stable for downgrade to telemetry status out of ICU Consults & Procedures Consultants: Wound care nurse Neurology: Dennis Nephrology: Eric Infectious disease: Frost Procedures: Right internal jugular triple-lumen placed 07/29/2017 Left radial arterial line placed 07/29/2017 - discontinued 07/31/2017 Endotracheal intubation 07/30/2017 extubation 08/01/2017 Limited transthoracic echocardiogram 07/29/2017 Limited bedside lung ultrasound 07/29/2017 Data Medications: Current Inpatient Medications Medications (Trade) Dose Ordered Sig/Deion Route Start Time Stop Time Status Last Admin Dose Admin Amiodarone HCl (Cordarone Tab) 200 mg QAM PO 07/29/17 09:00 08/28/17 08:59 08/01/17 07:26 200 MG Ascorbic Acid (Vitamin C Tab) 500 mg QAM PO 07/29/17 09:00 08/28/17 08:59 07/31/17 09:08 500 MG Levothyroxine Sodium (Synthroid Tab) 25 mcg DAILYBB PO 07/29/17 06:30 08/28/17 06:59 08/02/17 05:50 25 MCG Pravastatin Sodium (Pravachol Tab) 40 mg HS PO 07/29/17 21:00 08/28/17 20:59 08/01/17 20:57 40 MG Warfarin Sodium (Coumadin Tab) 5 mg DAILY@16 PO 07/29/17 16:00 08/28/17 15:59 Future Hold 07/29/17 16:36 5 MG Acetaminophen (Tylenol Tab) 650 mg Q4H PRN PO 07/28/17 22:00 08/27/17 21:59 07/30/17 03:11 650 MG Al Hydrox/Mg Hydrox/Simethicone (Maalox Max Susp) 15 ml Q4H PRN PO 07/28/17 22:00 08/27/17 21:59 Magnesium Hydroxide (Milk Of Magnesia Susp) 30 ml Q6H PRN PO 07/28/17 22:00 08/27/17 21:59 Polyethylene (Miralax Powder Packet) 17 gm DAILY PRN PO 07/28/17 22:00 08/27/17 21:59 Ondansetron HCl (Zofran Inj) 4 mg Q6H PRN IV 07/28/17 22:00 08/27/17 21:59 Miscellaneous (Iv Fluids Completed) 1 ea PRN PRN N/A 07/29/17 02:30 07/29/18 02:29 Piperacillin Sod/ Tazobactam Sod 3.375 gm/Dextrose 115 ml @ 28.75 mls/ hr Q8H IV 07/29/17 22:00 08/13/17 21:59 08/02/17 05:49 28.75 MLS/HR Miscellaneous Information (Consult) 1 ea UD PRN N/A 07/29/17 16:00 08/13/17 15:59 Miscellaneous Information (Consult) 1 ea UD PRN N/A 07/29/17 16:00 08/28/17 15:59 Dopamine HCl/ Dextrose 0 ml @ 0 mls/hr Q0M PRN IV 07/29/17 20:23 08/28/17 20:22 Dobutamine HCl 0 ml @ 0 mls/hr Q0M PRN IV 07/30/17 00:08 08/29/17 00:07 07/31/17 22:30 30.7 MLS/HR Norepinephrine Bitartrate 8 mg/ Dextrose 508 ml @ 0 mls/hr Q0M PRN IV 07/30/17 05:05 08/29/17 05:04 07/30/17 17:55 24 MLS/HR Midazolam HCl (Versed Inj) 2 mg Q2H PRN IV 07/30/17 08:45 08/29/17 08:44 07/30/17 11:34 2 MG Fentanyl Citrate (Fentanyl Inj) 100 mcg Q2H PRN IV 07/30/17 08:45 08/13/17 08:44 07/30/17 13:55 100 MCG Vasopressin 50 units/Sodium Chloride 502.5 ml @ 24 mls/hr [id number] IV 07/30/17 08:45 08/29/17 08:44 07/31/17 05:46 24 MLS/HR Pantoprazole Sodium 40 mg/ Syringe 10 ml @ 5 mls/min DAILY@11 IV 07/30/17 11:00 08/29/17 10:59 08/01/17 10:52 5 MLS/MIN Aspirin (Aspirin Chew) 81 mg QAM PO 07/31/17 09:00 08/30/17 08:59 08/01/17 07:26 81 MG Albuterol/ Ipratropium (Duoneb) 3 ml QIDR PRN INH 07/30/17 18:00 08/29/17 17:59 Vancomycin HCl 1500 mg/Sodium Chloride 530 ml @ 200 mls/hr Q18H IV 08/01/17 19:00 08/06/17 18:59 08/01/17 18:56 200 MLS/HR Potassium/ Phosphorus/Sodium (Phospha 250 Neutral 155-852-130 Mg) 1 tab Q4H PO 08/02/17 02:00 08/02/17 10:01 08/02/17 05:50 1 TAB Potassium Chloride (Klor-Con M10) 20 meq Q4H PO 08/02/17 02:00 08/02/17 10:01 08/02/17 05:49 20 MEQ Docusate Sodium (coLACE CAP) 100 mg QPM PO 08/02/17 21:00 09/01/17 20:59 Vital Signs: Date Time Temp Pulse Resp B/P (MAP) Pulse Ox O2 Delivery O2 Flow Rate FiO2 08/02/17 06:00 36.4 82 18 107/57 (74) 98 Nasal Cannula 4.0 08/02/17 04:00 37.0 81 18 93/46 (62) 93 Nasal Cannula 4.0 08/02/17 04:00 Nasal Cannula 4.0 08/02/17 02:00 76 16 108/51 (70) 93 Nasal Cannula 4.0 08/02/17 00:01 36.9 81 16 95/46 (62) 96 Nasal Cannula 4.0 08/01/17 23:59 Nasal Cannula 4.0 08/01/17 22:00 86 18 92/40 (57) 94 Nasal Cannula 4.0 08/01/17 20:00 Nasal Cannula 4.0 08/01/17 20:00 36.7 86 16 111/55 (73) 97 Nasal Cannula 4.0 08/01/17 18:00 87 20 111/54 (73) 95 Nasal Cannula 4.0 Oxymask 08/01/17 17:00 76 18 110/51 (70) 98 Nasal Cannula 4.0 Oxymask 08/01/17 16:00 Oxymask 4.0 08/01/17 16:00 37.0 75 20 110/56 (74) 98 Oxymask 4.0 08/01/17 15:30 84 123/55 (77) 97 Oxymask 4.0 08/01/17 15:00 81 116/62 (80) 97 Oxymask 4.0 08/01/17 14:30 80 99/54 (69) 98 Oxymask 4.0 08/01/17 14:06 87 99/51 (67) 92 Oxymask 4.0 08/01/17 14:00 87 99/52 (68) 94 Oxymask 4.0 08/01/17 13:58 83 114/53 (73) 99 Oxymask 4.0 08/01/17 13:30 81 108/54 (72) 100 Oxymask 4.0 08/01/17 13:00 79 112/56 (74) 99 Oxymask 4.0 08/01/17 12:30 78 114/56 (75) 97 08/01/17 12:00 Oxymask 4.0 08/01/17 12:00 81 111/55 (73) 98 Oxymask 4.0 08/01/17 12:00 37.0 81 19 112/50 (70) 98 Oxymask 4.0 08/01/17 11:30 81 112/55 (74) 98 Oxymask 4.0 08/01/17 11:00 75 97/49 (65) 91 Oxymask 4.0 08/01/17 10:30 81 114/49 (70) 97 Oxymask 4.0 08/01/17 10:00 76 123/63 (83) 94 Oxymask 4.0 08/01/17 09:30 79 22 100/48 (65) 98 Oxymask 4.0 08/01/17 09:00 80 20 112/42 (65) 96 Oxymask 4.0 08/01/17 08:30 81 19 107/53 (71) 95 CPAP 45 08/01/17 08:00 37.1 80 19 112/50 (70) 97 CPAP 45 08/01/17 08:00 CPAP Mechanical Ventilator 08/01/17 08:00 45 08/01/17 07:58 45 08/01/17 07:58 CPAP 45 08/01/17 07:30 80 20 112/45 (67) 97 CPAP 45 Laboratory Results: Last 24 Hours Test 08/01/17 18:46 08/02/17 05:45 Sodium Level 138 mmol/L 141 mmol/L Potassium Level 3.4 mmol/L 3.4 mmol/L Chloride Level 100 mmol/L 103 mmol/L Carbon Dioxide Level 33 mmol/L 34 mmol/L Anion Gap 5.0 mmol/L 4.0 mmol/L Blood Urea Nitrogen 12 mg/dl 12 mg/dl Creatinine 1.03 mg/dl 1.00 mg/dl Est Creatinine Clear Calc Drug Dose 65.9 ml/min 67.9 ml/min Estimated GFR () 80.8 83.8 Estimated GFR (Non- 69.7 72.3 BUN/Creatinine Ratio 11.8 11.7 Random Glucose 82 mg/dl 82 mg/dl Calcium Level 7.6 mg/dl 7.9 mg/dl White Blood Count 5.85 K/uL Red Blood Count 3.33 M/uL Hemoglobin 8.6 g/dL Hematocrit 29.6 % Mean Corpuscular Volume 88.9 fL Mean Corpuscular Hemoglobin 25.8 pg Mean Corpuscular Hemoglobin Concent 29.1 g/dl RDW Standard Deviation 54.7 fL RDW Coefficient of Variation 16.7 % Platelet Count 183 K/uL Mean Platelet Volume 9.9 fL Prothrombin Time 55.2 SECONDS Prothromb Time International Ratio 5.4 Phosphorus Level 2.9 mg/dl Magnesium Level 2.2 mg/dl Procalcitonin 0.19 ng/ml
[2017-08-02] MEDS: ASPIRIN 81 MG CHEW PO SCH (07:34)
[2017-08-02] MEDS: BUMETANIDE 1 MG TAB PO SCH (07:35)
[2017-08-02] MEDS: ASCORBIC ACID 500 MG TAB PO SCH (07:35)
[2017-08-02] MEDS: AMIODARONE 200 MG TAB PO SCH (07:35)
[2017-08-02] MEDS: ACETAZOLAMIDE IV PUSH 500 MG in SYRINGE 0 ML IV SCH ×2 (09:03→21:32)
--- NOTE | 2017-08-02 09:48 | Nephrology Progress Note ---
Nephrology Progress Note Date of Service Aug 02, 2017. Chief Complaint Acute renal insufficiency, CHF Subjective No acute events overnight. Susan was resting comfortably in bed this morning. He feels well. Denies shortness of breath. Describes some persistent orthopnea. No nausea. No chest pain or palpitations. No fevers or chills. Denies significant pain. Review of Systems A complete review of systems was performed. Pertinent positives are noted above. All other systems are negative. Vital Signs Last 8 Hrs Date Time Temp Pulse Resp B/P (MAP) Pulse Ox O2 Delivery O2 Flow Rate FiO2 08/02/17 08:00 95 Nasal Cannula 4.0 08/02/17 08:00 36.6 83 20 120/60 (80) 95 Nasal Cannula 4.0 08/02/17 06:00 36.4 82 18 107/57 (74) 98 Nasal Cannula 4.0 08/02/17 04:00 37.0 81 18 93/46 (62) 93 Nasal Cannula 4.0 08/02/17 04:00 Nasal Cannula 4.0 08/02/17 02:00 76 16 108/51 (70) 93 Nasal Cannula 4.0 Last Recorded Weight Weight (Kilograms): 87.400 Physical Exam General Appearance: WD/WN, no apparent distress Head: normocephalic, atraumatic Eyes: normal inspection, sclerae normal ENT: normal ENT inspection, pharynx normal Neck: supple, + JVD, + pertinent finding ([facility] CVC) Respiratory/Chest: lungs clear, no respiratory distress, no accessory muscle use, + decreased breath sounds, + rales (scattered basilar) Cardiovascular: regular rate, rhythm, no gallop Abdomen/GI: non tender, soft Genitourinary - Male: + pertinent finding (Sandoval draining clear yellow urine) Extremities/Musculoskelatal: normal inspection, no pedal edema, + pertinent finding (no distal cyanosis) Neurologic/Psych: alert, normal mood/affect Family History Patient reports no known family medical history. Social History Smoking Status: Former smoker Drug Use: none Marital Status: Housing Status: lives with family Occupation: retired Laboratory Results Past 24 Hours 08/02/17 05:45 08/01/17 18:46 08/02/17 05:45 Test 08/01/17 18:46 08/02/17 05:45 Anion Gap 5.0 mmol/L (3-11) 4.0 mmol/L (3-11) Est Creatinine Clear Calc Drug Dose 65.9 ml/min 67.9 ml/min Estimated GFR () 80.8 83.8 Estimated GFR (Non- 69.7 72.3 BUN/Creatinine Ratio 11.8 (10-20) 11.7 (10-20) Calcium Level 7.6 mg/dl (8.5-10.1) 7.9 mg/dl (8.5-10.1) Red Blood Count 3.33 M/uL (4.7-6.1) Mean Corpuscular Volume 88.9 fL (80-100) Mean Corpuscular Hemoglobin 25.8 pg (25-34) Mean Corpuscular Hemoglobin Concent 29.1 g/dl (32-36) RDW Standard Deviation 54.7 fL (36.4-46.3) RDW Coefficient of Variation 16.7 % (11.5-14.5) Mean Platelet Volume 9.9 fL (7.4-10.4) Prothrombin Time 55.2 SECONDS (9.0-12.0) Prothromb Time International Ratio 5.4 (0.9-1.1) Phosphorus Level 2.9 mg/dl (2.5-4.9) Magnesium Level 2.2 mg/dl (1.8-2.4) Procalcitonin 0.19 ng/ml (0-0.5) Allergies Coded Allergies: Adhesives (Verified Allergy, Unknown, removed skin, 06/24/17) Medications Current Inpatient Medications Medications (Trade) Dose Ordered Sig/Deion Route Start Time Stop Time Status Last Admin Dose Admin Amiodarone HCl (Cordarone Tab) 200 mg QAM PO 07/29/17 09:00 08/28/17 08:59 08/02/17 07:35 200 MG Ascorbic Acid (Vitamin C Tab) 500 mg QAM PO 07/29/17 09:00 08/28/17 08:59 08/02/17 07:35 500 MG Levothyroxine Sodium (Synthroid Tab) 25 mcg DAILYBB PO 07/29/17 06:30 08/28/17 06:59 08/02/17 05:50 25 MCG Pravastatin Sodium (Pravachol Tab) 40 mg HS PO 07/29/17 21:00 08/28/17 20:59 08/01/17 20:57 40 MG Warfarin Sodium (Coumadin Tab) 5 mg DAILY@16 PO 07/29/17 16:00 08/28/17 15:59 Future Hold 07/29/17 16:36 5 MG Acetaminophen (Tylenol Tab) 650 mg Q4H PRN PO 07/28/17 22:00 08/27/17 21:59 07/30/17 03:11 650 MG Al Hydrox/Mg Hydrox/Simethicone (Maalox Max Susp) 15 ml Q4H PRN PO 07/28/17 22:00 08/27/17 21:59 Magnesium Hydroxide (Milk Of Magnesia Susp) 30 ml Q6H PRN PO 07/28/17 22:00 08/27/17 21:59 Polyethylene (Miralax Powder Packet) 17 gm DAILY PRN PO 07/28/17 22:00 08/27/17 21:59 Miscellaneous (Iv Fluids Completed) 1 ea PRN PRN N/A 07/29/17 02:30 07/29/18 02:29 Piperacillin Sod/ Tazobactam Sod 3.375 gm/Dextrose 115 ml @ 28.75 mls/ hr Q8H IV 07/29/17 22:00 08/13/17 21:59 08/02/17 05:49 28.75 MLS/HR Miscellaneous Information (Consult) 1 ea UD PRN N/A 07/29/17 16:00 08/13/17 15:59 Miscellaneous Information (Consult) 1 ea UD PRN N/A 07/29/17 16:00 08/28/17 15:59 Aspirin (Aspirin Chew) 81 mg QAM PO 07/31/17 09:00 08/30/17 08:59 08/02/17 07:34 81 MG Albuterol/ Ipratropium (Duoneb) 3 ml QIDR PRN INH 07/30/17 18:00 08/29/17 17:59 Vancomycin HCl 1500 mg/Sodium Chloride 530 ml @ 200 mls/hr Q18H IV 08/01/17 19:00 08/06/17 18:59 08/01/17 18:56 200 MLS/HR Potassium/ Phosphorus/Sodium (Phospha 250 Neutral 155-852-130 Mg) 1 tab Q4H PO 08/02/17 02:00 08/02/17 10:01 08/02/17 09:43 1 TAB Potassium Chloride (Klor-Con M10) 20 meq Q4H PO 08/02/17 02:00 08/02/17 10:01 08/02/17 07:35 20 MEQ Docusate Sodium (coLACE CAP) 100 mg QPM PO 08/02/17 21:00 09/01/17 20:59 Bumetanide (Bumex Tab) 1 mg QAM PO 08/02/17 09:00 09/01/17 08:59 08/02/17 07:35 1 MG Acetazolamide Sodium 500 mg/ Syringe 5 ml @ 5 mls/min BID IV 08/02/17 09:00 08/02/17 21:00 08/02/17 09:03 5 MLS/MIN Impression (1) Acute on chronic renal insufficiency (2) Acute on chronic systolic CHF (congestive heart failure) (3) Cardiogenic shock (4) Acute respiratory failure with hypoxia and hypercapnia Mr. Garcia is a critically ill 77-year-old male with acute on chronic renal insufficiency in the setting of cardiogenic shock. Cannot exclude potential septic component. Urine output is acceptable. Renal function is improving with improved hemodynamics. Metabolic profile is otherwise acceptable and there is no acute indication for dialysis at this time. Recommendations SANTHOSH: -- Creatinine improved and renal function stable -- Potassium replaced as needed -- Bumex 1 mg daily to encourage slightly negative fluid balance -- Medications are appropriately dosed for renal function -- Maintain Sandoval to gravity for chronic urinary retention -- Monitor metabolic profile daily Renal cysts: -- Will require outpatient urology follow up Nephrology will sign-off. Please call with any additional questions or concerns. Outpatient follow up to be arranged at discharge regarding renal cysts.
[2017-08-02] MEDS ORDERED: VANCOMYCIN TROUGH ONE (12:30)
[2017-08-02] MEDS: VANCOMYCIN INJ 1,500 MG in SODIUM CHLORIDE 0.9% 500ML 500 ML IV SCH (12:36)
--- NOTE | 2017-08-02 15:37 | Pharmacy Progress Note ---
Pharmacy Abx Dose Short Note Date of Service Aug 02, 2017. Assessment & Plan Assessment 77 year old male receiving vancomycin/zosyn for treatment of ssti/uti, ?PNA Day # 5 of antimicrobial therapy. ID recommendations to continue vanc/zosyn for now, patient MRSA swab (+) Plan Vancomycin * Trough level of 19.8 mcg/mL is therapeutic * Continue dose of 1500 mg IV every 18 hours * Goal trough level 15-20 mcg/mL * Higher trough goal for ?PNA * Trough ordered for 08/04 @ 0030 Pharmacy will continue to follow and will adjust dose/frequency as necessary. Thank you.
--- NOTE | 2017-08-02 17:59 | DIAGNOSTIC IMAGING REPORT ---
CHEST ONE VIEW PORTABLE CLINICAL HISTORY: PICC PLACEMENT COMPARISON STUDY: Chest CT July 30, 2017 and chest radiograph August 01, 2017. FINDINGS: The tip of the right PICC projects of the distal SVC. A right internal jugular central line is in place. There is a left subclavian pacer/AICD, median sternotomy wires and prosthetic cardiac valve. Cardiomegaly is unchanged. Small bilateral pleural effusions persist. Bibasilar opacities, left greater than right, are unchanged. Interstitial thickening is unchanged. No pneumothorax. The endotracheal and nasogastric tubes have been removed. IMPRESSION: 1. Tip of right PICC projects over distal SVC. 2. Persistent bibasilar opacities which may reflect pneumonia or atelectasis. Small bilateral pleural effusions. 3. Pulmonary vascular congestion with suspected mild pulmonary edema. Electronically signed by: Man Das M.D. 08/02/2017 5:57 PM Dictated Date/Time: 08/02/2017 5:55 PM
[2017-08-02] MEDS: PRAVASTATIN SOD 40 MG TAB PO SCH (21:32)
[2017-08-02] MEDS: DOCUSATE SODIUM 100 MG CAP PO SCH (21:32)
--- NOTE | 2017-08-02 23:08 | Progress Note ---
Subjective Date of Service: Aug 02, 2017. Subjective Pt evaluation today including: conversation w/ patient, conversation w/ family , physical exam, chart review, lab review, review of inpatient medication list Pain: no pain Voiding: suggs catheter in place Patient has no chest pain no shortness of breath, feeling already 50% better.Pt is at the bedside Problem List Medical Problems: (1) Abdom Aortic Aneurysm Status: Chronic (2) Acute respiratory failure with hypoxia and hypercapnia Status: Acute (3) Aortic dissection, thoracic Status: Chronic (4) CAD (coronary artery disease) Status: Chronic (5) Chronic Kidney Disease, Unspecified Status: Chronic (6) Chronic Obstructive Pulmonary Disease W (Acute) Exacerbation Status: Chronic (7) Closed left hip fracture Status: Acute (8) Complication of catheter Status: Acute (9) HTN (hypertension) Status: Chronic (10) Hyperlipidemia, Unspecified Status: Chronic (11) Hypertrophy (Benign) Of Prostate W/O Urinary Obst & Oth Luts Status: Chronic (12) Hypothyroidism, Unspecified Status: Chronic (13) Hypoxia Status: Acute (14) Pleural effusion Status: Acute (15) 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 (16) Urinary retention Status: Acute Surgical Problems: (1) 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 (2) Aortocoronary Bypass Status: Chronic (3) 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 Review of Systems General/Constitutional: Denies fever/chills, fatigue, weakness ENT: + hoarse voice Denies nasal drainage, hearing loss, sore throat, trouble swallowing Cardiovascular: Denies chest pain, palpitations, edema Respiratory: + cough GI: Denies nausea, vomiting, abdominal pain, constipation, diarrhea : Denies dysuria or Suggs irritation Musculoskeletal: Denies joint/muscle aches Neurologic: Denies dizziness/lightheadedness, numbness/tingling, weakness Hematologic/Lymphatic: Denies bleeding Skin: Denies rash All Other Systems: Reviewed and Negative Medications Medications (Trade) Dose Ordered Sig/Deion Route Start Time Stop Time Status Last Admin Dose Admin Potassium/ Phosphorus/Sodium (Phospha 250 Neutral 155-852-130 Mg) 1 tab Q4H PO 08/02/17 02:00 08/02/17 10:01 DC 08/02/17 09:43 1 TAB Potassium Chloride (Klor-Con M10) 20 meq Q4H PO 08/02/17 02:00 08/02/17 10:01 DC 08/02/17 07:35 20 MEQ Docusate Sodium (coLACE CAP) 100 mg QPM PO 08/02/17 21:00 09/01/17 20:59 08/02/17 21:32 100 MG Bumetanide (Bumex Tab) 1 mg QAM PO 08/02/17 09:00 09/01/17 08:59 08/02/17 07:35 1 MG Acetazolamide Sodium 500 mg/ Syringe 5 ml @ 5 mls/min BID IV 08/02/17 09:00 08/02/17 21:00 DC 08/02/17 21:32 5 MLS/MIN Objective Vital Signs Date Time Temp Pulse Resp B/P (MAP) Pulse Ox O2 Delivery O2 Flow Rate FiO2 08/02/17 20:00 36.6 95 18 120/86 (97) 92 Nasal Cannula 4.0 08/02/17 20:00 Nasal Cannula 4.0 08/02/17 16:00 95 Nasal Cannula 4.0 08/02/17 16:00 36.4 69 20 97/61 (73) 95 Nasal Cannula 4.0 08/02/17 12:00 36.9 82 18 106/52 (70) 98 Nasal Cannula 4.0 08/02/17 12:00 98 Nasal Cannula 4.0 08/02/17 08:00 95 Nasal Cannula 4.0 08/02/17 08:00 36.6 83 20 120/60 (80) 95 Nasal Cannula 4.0 08/02/17 06:00 36.4 82 18 107/57 (74) 98 Nasal Cannula 4.0 08/02/17 04:00 37.0 81 18 93/46 (62) 93 Nasal Cannula 4.0 08/02/17 04:00 Nasal Cannula 4.0 08/02/17 02:00 76 16 108/51 (70) 93 Nasal Cannula 4.0 08/02/17 00:01 36.9 81 16 95/46 (62) 96 Nasal Cannula 4.0 08/01/17 23:59 Nasal Cannula 4.0 Physical Exam Comments: General - NAD, resting in bed Eyes - PERRL, EOMI No icterus, Neck - no JVD Lungs -improved aeration Heart - Reg rate and rhythm, Systolic murmur, Abdomen: Soft nontender nondistended Extremities - No edema, pedal pulses intact Neuro -alert Laboratory Results Last 24 Hours Test 08/02/17 05:45 08/02/17 12:25 White Blood Count 5.85 K/uL Red Blood Count 3.33 M/uL Hemoglobin 8.6 g/dL Hematocrit 29.6 % Mean Corpuscular Volume 88.9 fL Mean Corpuscular Hemoglobin 25.8 pg Mean Corpuscular Hemoglobin Concent 29.1 g/dl RDW Standard Deviation 54.7 fL RDW Coefficient of Variation 16.7 % Platelet Count 183 K/uL Mean Platelet Volume 9.9 fL Prothrombin Time 55.2 SECONDS Prothromb Time International Ratio 5.4 Sodium Level 141 mmol/L Potassium Level 3.4 mmol/L Chloride Level 103 mmol/L Carbon Dioxide Level 34 mmol/L Anion Gap 4.0 mmol/L Blood Urea Nitrogen 12 mg/dl Creatinine 1.00 mg/dl Est Creatinine Clear Calc Drug Dose 67.9 ml/min Estimated GFR () 83.8 Estimated GFR (Non- 72.3 BUN/Creatinine Ratio 11.7 Random Glucose 82 mg/dl Calcium Level 7.9 mg/dl Phosphorus Level 2.9 mg/dl Magnesium Level 2.2 mg/dl Procalcitonin 0.19 ng/ml Vancomycin Level Trough 19.8 mcg/ml Assessment and Plan Mr. Garcia is a 77 year old man here for increased weakness Acute Hypoxic Hypercarbic Respiratory Failure 2/ Acute on Chronic Systolic CHF and Multifocal Pneumonia - HCAP Coverage: Resolved - Patient was intubated on 07/30 and respiratory acidosis improving on subsequent draws and extubated on 08/01 - Zosyn - Currently at a slight negative fluid balance and continue diuresis - Infectious Disease following - plan as above - Intensivists following - appreciate management Severe Sepsis with Septic Shock with Possible Cardiogenic Shock: Multifocal PNA vs Urinary Source vs CHF: - Currently in ICU on pressor support - appreciate management by intensivists - vitals improving and urine output improving, off pressor for now. SANTHOSH on CKD Stage III: RESOLVED - Nephrology following - appreciate recommendations - avoid nephrotoxins and maintain a slight negative fluid balance Hyperkalemia: RESOLVED - continue to monitor and manage CAD S/P CABG; AAA/Aortic Dissection; S/P ICD/Pacer; Acute Systolic CHF; Atrial Fibrillation: Supratherapeutic INR - Has bovine valve - INR goal 2-3 - Amiodarone 200 mg daily, Pravastatin 40 mg daily, and ASA 81 mg daily - Hold Toprol XL and Ramipril; Hold Coumadin 2/2 supratherapeutic INR and trend as there is no signs of active bleeding -- Likely continues to increase due to interactions with other medications vs possible relation to shock/liver? H/O Transverse Myelitis: STABLE - Weakness does not appear to be related to this - Neuro was consulted DVT Prophylaxis: Supratherapeutic INR Code Status: DO NOT RESUSCITATE for cardiac arrest - Consented to intubation Continued [facility] stay due to: multiple IV medications needed Discharge planning: uncertain
[2017-08-03 04:00] VITALS: BP 128/64; PULSE 91; TEMP 36.8; O2SAT 96
[2017-08-03] MEDS: VANCOMYCIN INJ 1,500 MG in SODIUM CHLORIDE 0.9% 500ML 500 ML IV SCH (06:14)
[2017-08-03] MEDS: LEVOTHYROXINE 25 MCG TAB PO SCH (06:14)
[2017-08-03] MEDS: PIPERACILL/TAZOBAC IV 3.375 GM in DEXTROSE 5% 100ML 100 ML IV SCH ×3 (06:14→22:47)
[2017-08-03 06:26] LABS: CREATININE 1.23 mg/dl (0.60-1.40); POTASSIUM 3.5 mmol/L (3.5-5.1)
[2017-08-03 06:28] LABS: INR 4.8 (0.9-1.1)
[2017-08-03 06:42] LABS: HEMATOCRIT 29.8 % (42-52); HEMOGLOBIN 8.5 g/dL (14.0-18.0); MEAN CELL VOLUME 91.1 fL (80-100); MEAN CORPUSCULAR HGB CONC 28.5 g/dl (32-36); MEAN PLATELET VOLUME 10.2 fL (7.4-10.4); PLATELET COUNT 203 K/uL (130-400); RED CELL DISTRIBUTION WIDTH CV 17.4 % (11.5-14.5); WHITE BLOOD COUNT 7.17 K/uL (4.8-10.8)
[2017-08-03] MEDS: BUMETANIDE 1 MG TAB PO SCH (07:51)
[2017-08-03] MEDS: ASPIRIN 81 MG CHEW PO SCH (07:51)
[2017-08-03] MEDS: AMIODARONE 200 MG TAB PO SCH (07:51)
[2017-08-03] MEDS: ASCORBIC ACID 500 MG TAB PO SCH (07:52)
[2017-08-03 08:00] VITALS: BP 110/54; PULSE 92; TEMP 36.9; O2SAT 94
[2017-08-03 12:00] VITALS: BP 125/62; PULSE 87; TEMP 36.7; O2SAT 94
--- NOTE | 2017-08-03 12:40 | Progress Note ---
Subjective Date of Service: Aug 03, 2017. Subjective Pt evaluation today including: conversation w/ patient, conversation w/ family , physical exam, chart review, lab review, review of inpatient medication list Voiding: suggs catheter in place pt is seen and examined by me. pt denies cp, sob, dizziness, palpitation and loc. Pt states he is feeling much better and no acute events happen last night.pt can go to regular floor. Problem List Medical Problems: (1) Abdom Aortic Aneurysm Status: Chronic (2) Acute respiratory failure with hypoxia and hypercapnia Status: Acute (3) Aortic dissection, thoracic Status: Chronic (4) CAD (coronary artery disease) Status: Chronic (5) Chronic Kidney Disease, Unspecified Status: Chronic (6) Chronic Obstructive Pulmonary Disease W (Acute) Exacerbation Status: Chronic (7) Closed left hip fracture Status: Acute (8) Complication of catheter Status: Acute (9) HTN (hypertension) Status: Chronic (10) Hyperlipidemia, Unspecified Status: Chronic (11) Hypertrophy (Benign) Of Prostate W/O Urinary Obst & Oth Luts Status: Chronic (12) Hypothyroidism, Unspecified Status: Chronic (13) Hypoxia Status: Acute (14) Pleural effusion Status: Acute (15) 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 (16) Urinary retention Status: Acute Surgical Problems: (1) 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 (2) Aortocoronary Bypass Status: Chronic (3) 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 Review of Systems All Other Systems: Reviewed and Negative Medications Medications (Trade) Dose Ordered Sig/Deion Route Start Time Stop Time Status Last Admin Dose Admin Docusate Sodium (coLACE CAP) 100 mg QPM PO 08/02/17 21:00 09/01/17 20:59 08/02/17 21:32 100 MG Objective Vital Signs Date Time Temp Pulse Resp B/P (MAP) Pulse Ox O2 Delivery O2 Flow Rate FiO2 08/03/17 12:00 36.7 87 18 125/62 (83) 94 Nasal Cannula 4.0 08/03/17 12:00 94 Nasal Cannula 4.0 08/03/17 08:00 94 Nasal Cannula 4.0 08/03/17 08:00 36.9 92 18 110/54 (72) 94 Nasal Cannula 4.0 08/03/17 04:00 Nasal Cannula 4.0 08/03/17 04:00 36.8 91 18 128/64 (85) 96 Nasal Cannula 4.0 08/02/17 23:59 Nasal Cannula 4.0 08/02/17 23:59 36.8 90 18 103/61 (75) 94 Nasal Cannula 4.0 08/02/17 20:00 36.6 95 18 120/86 (97) 92 Nasal Cannula 4.0 08/02/17 20:00 Nasal Cannula 4.0 08/02/17 16:00 95 Nasal Cannula 4.0 08/02/17 16:00 36.4 69 20 97/61 (73) 95 Nasal Cannula 4.0 Physical Exam Comments: General - NAD, resting in bed Eyes - PERRL, EOMI No icterus, Neck - no JVD Lungs -improved aeration Heart - Reg rate and rhythm, Systolic murmur, Abdomen: Soft nontender nondistended Extremities - No edema, pedal pulses intact Neuro -alert Laboratory Results Last 24 Hours Test 08/03/17 05:22 White Blood Count 7.17 K/uL Red Blood Count 3.27 M/uL Hemoglobin 8.5 g/dL Hematocrit 29.8 % Mean Corpuscular Volume 91.1 fL Mean Corpuscular Hemoglobin 26.0 pg Mean Corpuscular Hemoglobin Concent 28.5 g/dl RDW Standard Deviation 58.0 fL RDW Coefficient of Variation 17.4 % Platelet Count 203 K/uL Mean Platelet Volume 10.2 fL Prothrombin Time 48.9 SECONDS Prothromb Time International Ratio 4.8 Sodium Level 142 mmol/L Potassium Level 3.5 mmol/L Chloride Level 105 mmol/L Carbon Dioxide Level 33 mmol/L Anion Gap 4.0 mmol/L Blood Urea Nitrogen 14 mg/dl Creatinine 1.23 mg/dl Est Creatinine Clear Calc Drug Dose 55.2 ml/min Estimated GFR () 65.2 Estimated GFR (Non- 56.3 BUN/Creatinine Ratio 11.3 Random Glucose 105 mg/dl Calcium Level 8.0 mg/dl Assessment and Plan Mr. Garcia is a 77 year old man here for increased weakness Acute Hypoxic Hypercarbic Respiratory Failure 2/2 Acute on Chronic Systolic CHF and Multifocal Pneumonia - HCAP Coverage: Resolved - Patient was intubated on 07/30 and respiratory acidosis improving on subsequent draws and extubated on 08/01 - Zosyn - Currently at a slight negative fluid balance and continue diuresis - Infectious Disease following - plan as above - Intensivists following - appreciate management Severe Sepsis with Septic Shock with Possible Cardiogenic Shock: Multifocal PNA vs Urinary Source vs CHF: - Currently in ICU on pressor support - appreciate management by intensivists - vitals improving and urine output improving, off pressor for now. SANTHOSH on CKD Stage III: RESOLVED - Nephrology following - appreciate recommendations - avoid nephrotoxins and maintain a slight negative fluid balance Hyperkalemia: RESOLVED - continue to monitor and manage CAD S/P CABG; AAA/Aortic Dissection; S/P ICD/Pacer; Acute Systolic CHF; Atrial Fibrillation: Supratherapeutic INR - Has bovine valve - INR goal 2-3 - Amiodarone 200 mg daily, Pravastatin 40 mg daily, and ASA 81 mg daily - Hold Toprol XL and Ramipril; Hold Coumadin 2/2 supratherapeutic INR and trend as there is no signs of active bleeding -- Likely continues to increase due to interactions with other medications vs possible relation to shock/liver? H/O Transverse Myelitis: STABLE - Weakness does not appear to be related to this - Neuro was consulted DVT Prophylaxis: Supratherapeutic INR Code Status: DO NOT RESUSCITATE for cardiac arrest - Consented to intubation Continued [facility] stay due to: multiple IV medications needed Discharge planning: uncertain
[2017-08-03 16:00] VITALS: BP 131/56; PULSE 89; TEMP 36.9; O2SAT 92
[2017-08-03 20:00] VITALS: BP 136/59; PULSE 89; TEMP 36.9; O2SAT 94
[2017-08-03] MEDS: DOCUSATE SODIUM 100 MG CAP PO SCH (20:47)
[2017-08-03] MEDS: PRAVASTATIN SOD 40 MG TAB PO SCH (20:47)
[2017-08-03 23:59] VITALS: BP 130/58; PULSE 89; TEMP 36.8; O2SAT 94
[2017-08-04] VITALS (7 sets, daily range): BP systolic 100–130; BP diastolic 58–67; PULSE 82–92; TEMP 36.7–37; O2SAT 94–98
[2017-08-04] MEDS ORDERED: VANCOMYCIN TROUGH ONE (00:30)
[2017-08-04] MEDS: PIPERACILL/TAZOBAC IV 3.375 GM in DEXTROSE 5% 100ML 100 ML IV SCH ×3 (05:38→20:40)
[2017-08-04] MEDS: LEVOTHYROXINE 25 MCG TAB PO SCH (05:39)
[2017-08-04 06:26] LABS: CREATININE 1.22 mg/dl (0.60-1.40)
[2017-08-04] MEDS: ASPIRIN 81 MG CHEW PO SCH (07:37)
[2017-08-04] MEDS: BUMETANIDE 1 MG TAB PO SCH (07:37)
[2017-08-04] MEDS: AMIODARONE 200 MG TAB PO SCH (07:37)
[2017-08-04] MEDS: ASCORBIC ACID 500 MG TAB PO SCH (07:38)
[2017-08-04] MEDS: VANCOMYCIN INJ 1,500 MG in SODIUM CHLORIDE 0.9% 500ML 500 ML IV SCH (08:41)
[2017-08-04 09:20] LABS: HEMATOCRIT 27.3 % (42-52); HEMOGLOBIN 7.9 g/dL (14.0-18.0); MEAN CELL VOLUME 90.7 fL (80-100); MEAN CORPUSCULAR HEMOGLOBIN 26.2 pg (25-34); MEAN CORPUSCULAR HGB CONC 28.9 g/dl (32-36); MEAN PLATELET VOLUME 9.5 fL (7.4-10.4); PLATELET COUNT 180 K/uL (130-400); RED CELL DISTRIBUTION WIDTH CV 17.3 % (11.5-14.5); WHITE BLOOD COUNT 7.93 K/uL (4.8-10.8)
[2017-08-04 09:22] LABS: INR 2.6 (0.9-1.1)
[2017-08-04 09:37] LABS: CREATININE 1.18 mg/dl (0.60-1.40); POTASSIUM 3.6 mmol/L (3.5-5.1)
[2017-08-04 09:39] LABS: BASO % 0.8 %; BASO ABS # 0.06 K/uL (0-0.2); EOS ABS # 0.24 K/uL (0-0.5); IG# 0.37 K/uL (0.00-0.02); LYMPH % 16.1 %; LYMPH ABS # 1.28 K/uL (1.2-3.4); MONO % 9.7 %; MONO ABS # 0.77 K/uL (0.11-0.59); NEUT % 65.7 %; NEUT ABS # 5.21 K/uL (1.4-6.5)
--- NOTE | 2017-08-04 10:55 | Hospitalist Progress Note ---
Hospitalist Progress Note Date of Service Aug 04, 2017. (Judie Rivera .[place]) Subjective Pt evaluation today including: conversation w/ patient, physical exam, chart review, lab review, review of inpatient medication list Voiding: no voiding problems Mr. Garcia is up to a chair, worked with therapy this morning, no complaints. ROS Constitutional: no chills, aches, sweats or fever Respiratory: no sob,cough, sputum, or wheezing Cardiac: no chest pain, palpitations, edema, orthopnea or lightheadedness GI: no abdominal pain, nausea, vomiting, diarrhea or constipation : no dysuria or hesitancy Extremities: no joint pain or weakness Skin: no rash All other systems reviewed and negative (Judie Rivera CRNP) Medications Medications Administered Medications (Trade) Dose Ordered Sig/Deion Route Start Time Stop Time Status Last Admin Dose Admin Sodium Chloride 1,000 ml @ 999 mls/hr Q1H1M STAT IV 07/28/17 19:54 07/28/17 20:54 DC 07/28/17 19:54 999 MLS/HR Cefepime HCl 1000 mg/Dextrose 111 ml @ 200 mls/hr NOW STAT IV 07/28/17 21:20 07/28/17 21:53 DC 07/28/17 21:52 200 MLS/HR Levofloxacin (Levaquin / D5W) 750 mg NOW STAT IV 07/28/17 21:20 07/28/17 21:22 DC 07/28/17 22:13 750 MG Amiodarone HCl (Cordarone Tab) 200 mg QAM PO 07/29/17 09:00 08/28/17 08:59 08/04/17 07:37 200 MG Ascorbic Acid (Vitamin C Tab) 500 mg QAM PO 07/29/17 09:00 08/28/17 08:59 08/04/17 07:38 500 MG Aspirin (Ecotrin Tab) 81 mg QAM PO 07/29/17 09:00 07/30/17 09:26 DC 07/30/17 09:12 81 MG Docusate Sodium (coLACE CAP) 100 mg QPM PO 07/29/17 21:00 07/30/17 21:28 DC 07/29/17 22:13 100 MG Famotidine (Pepcid Tab) 20 mg QAM PO 07/29/17 09:00 07/30/17 09:23 DC 07/30/17 09:13 20 MG Levothyroxine Sodium (Synthroid Tab) 25 mcg DAILYBB PO 07/29/17 06:30 08/28/17 06:59 08/04/17 05:39 25 MCG Metoprolol Succinate (Toprol Xl Tab) 100 mg QAM PO 07/29/17 09:00 07/29/17 19:00 DC 07/29/17 08:17 100 MG Pravastatin Sodium (Pravachol Tab) 40 mg HS PO 07/29/17 21:00 08/28/17 20:59 08/03/17 20:47 40 MG Warfarin Sodium (Coumadin Tab) 5 mg DAILY@16 PO 07/29/17 16:00 08/28/17 15:59 Future Hold 07/29/17 16:36 5 MG Enalapril Maleate (Vasotec Tab) 20 mg QAM PO 07/29/17 09:00 07/29/17 19:00 DC 07/29/17 08:16 20 MG Acetaminophen (Tylenol Tab) 650 mg Q4H PRN PO 07/28/17 22:00 08/27/17 21:59 07/30/17 03:11 650 MG Furosemide 40 mg/ Syringe 4 ml @ 4 mls/min ONE ONCE IV 07/29/17 03:15 07/29/17 03:16 DC 07/29/17 04:32 4 MLS/MIN Ceftriaxone Sodium 1 gm/ Dextrose 50 ml @ 100 mls/hr Q24H IV 07/29/17 08:00 07/29/17 15:57 DC 07/29/17 08:15 100 MLS/HR Albuterol/ Ipratropium (Duoneb) 3 ml QIDR INH 07/29/17 08:00 07/30/17 18:05 DC 07/29/17 16:25 3 ML Furosemide 40 mg/ Syringe 4 ml @ 4 mls/min 1530 ONCE IV 07/29/17 15:30 07/29/17 15:31 DC 07/29/17 15:33 4 MLS/MIN Piperacillin Sod/ Tazobactam Sod 3.375 gm/Dextrose 115 ml @ 28.75 mls/ hr Q8H IV 07/29/17 22:00 08/13/17 21:59 08/04/17 05:38 28.75 MLS/HR Piperacillin Sod/ Tazobactam Sod 4.5 gm/Dextrose 120 ml @ 200 mls/hr NOW STAT IV 07/29/17 16:11 07/29/17 16:46 DC 07/29/17 16:11 200 MLS/HR Vancomycin HCl 2500 mg/Sodium Chloride 550 ml @ 200 mls/hr NOW STAT IV 07/29/17 16:12 07/29/17 18:56 DC 07/29/17 16:53 200 MLS/HR Vancomycin HCl 1500 mg/Sodium Chloride 530 ml @ 200 mls/hr Q12H IV 07/30/17 02:00 07/30/17 12:41 DC 07/30/17 01:17 200 MLS/HR Sodium Chloride 500 ml @ 999 mls/hr NOW STAT IV 07/29/17 19:43 07/29/17 20:13 DC 07/29/17 20:00 999 MLS/HR Dopamine HCl/ Dextrose (DOPamine 400MG / D5W) 400 mg STK-MED ONCE .ROUTE 07/29/17 20:27 07/29/17 20:28 DC 07/29/17 20:34 400 MG Dobutamine HCl 0 ml @ 0 mls/hr Q0M PRN IV 07/30/17 00:08 08/02/17 07:07 DC 07/31/17 22:30 30.7 MLS/HR Norepinephrine Bitartrate 8 mg/ Dextrose 508 ml @ 0 mls/hr Q0M PRN IV 07/30/17 05:05 08/02/17 06:55 DC 07/30/17 17:55 24 MLS/HR Sodium Bicarbonate (Sodium Bicarbonate 8.4% Inj) 150 ml NOW STAT IV 07/30/17 06:19 07/30/17 06:22 DC 07/30/17 06:27 150 ML Miscellaneous (Rapid Sequence Induction Bag) 1 ea STK-MED ONCE N/A 07/30/17 06:21 07/30/17 06:22 DC 07/30/17 06:50 1 EA Furosemide (Lasix Inj) 40 mg STK-MED ONCE .ROUTE 07/30/17 06:45 07/30/17 06:46 DC 07/30/17 06:49 40 MG Furosemide (Lasix Inj) 40 mg STK-MED ONCE .ROUTE 07/30/17 06:45 07/30/17 06:46 DC 07/30/17 06:50 40 MG Midazolam HCl (Versed Inj) 2 mg Q2H PRN IV 07/30/17 08:45 08/02/17 07:07 DC 07/30/17 11:34 2 MG Fentanyl Citrate (Fentanyl Inj) 100 mcg Q2H PRN IV 07/30/17 08:45 08/02/17 07:07 DC 07/30/17 13:55 100 MCG Vasopressin 50 units/Sodium Chloride 502.5 ml @ 24 mls/hr [id number] IV 07/30/17 08:45 08/02/17 06:55 DC 07/31/17 05:46 24 MLS/HR Magnesium Sulfate 1 gm/Prmx 100 ml @ 100 mls/hr Q1H IV 07/30/17 09:00 07/30/17 10:59 DC 07/30/17 10:18 100 MLS/HR Pantoprazole Sodium 40 mg/ Syringe 10 ml @ 5 mls/min DAILY@11 IV 07/30/17 11:00 08/02/17 06:55 DC 08/01/17 10:52 5 MLS/MIN Aspirin (Aspirin Chew) 81 mg QAM PO 07/31/17 09:00 08/30/17 08:59 08/04/17 07:37 81 MG Furosemide 80 mg/ Syringe 8 ml @ 4 mls/min NOW ONCE IV 07/30/17 18:30 07/30/17 18:31 DC 07/30/17 19:20 4 MLS/MIN Docusate Sodium (coLACE SYRUP) 100 mg QPM PO 07/30/17 21:30 08/02/17 02:13 DC 08/01/17 20:57 100 MG Vancomycin HCl 1750 mg/Sodium Chloride 535 ml @ 200 mls/hr Q24H IV 07/31/17 07:15 07/31/17 15:18 DC 07/31/17 07:47 200 MLS/HR Furosemide 40 mg/ Syringe 4 ml @ 4 mls/min ONE ONCE IV 07/31/17 08:45 07/31/17 08:46 DC 07/31/17 09:08 4 MLS/MIN Potassium Phosphate 21 mmol/ Sodium Chloride 507 ml @ 144.857 mls/hr ONE ONCE IV 07/31/17 08:45 07/31/17 12:14 DC 07/31/17 09:07 144.857 MLS/HR Potassium Chloride 20 meq/ Prmx 100 ml @ 50 mls/hr Q2H IV 07/31/17 09:30 07/31/17 13:29 DC 07/31/17 11:35 50 MLS/HR Vancomycin HCl 1500 mg/Sodium Chloride 530 ml @ 200 mls/hr Q24H IV 08/01/17 01:00 08/01/17 10:14 DC 08/01/17 01:18 200 MLS/HR Potassium Chloride 20 meq/ Prmx 100 ml @ 50 mls/hr Q2H IV 08/01/17 09:30 08/01/17 15:29 DC 08/01/17 13:33 50 MLS/HR Furosemide 30 mg/ Syringe 3 ml @ 4 mls/min BID IV 08/01/17 09:00 08/01/17 18:40 DC 08/01/17 09:33 4 MLS/MIN Vancomycin HCl 1500 mg/Sodium Chloride 530 ml @ 200 mls/hr Q18H IV 08/01/17 19:00 08/04/17 06:46 DC 08/03/17 06:14 200 MLS/HR Potassium/ Phosphorus/Sodium (Phospha 250 Neutral 155-852-130 Mg) 1 tab Q4H PO 08/02/17 02:00 08/02/17 10:01 DC 08/02/17 09:43 1 TAB Potassium Chloride (Klor-Con M10) 20 meq Q4H PO 08/02/17 02:00 08/02/17 10:01 DC 08/02/17 07:35 20 MEQ Docusate Sodium (coLACE CAP) 100 mg QPM PO 08/02/17 21:00 09/01/17 20:59 08/03/17 20:47 100 MG Bumetanide (Bumex Tab) 1 mg QAM PO 08/02/17 09:00 09/01/17 08:59 08/04/17 07:37 1 MG Acetazolamide Sodium 500 mg/ Syringe 5 ml @ 5 mls/min BID IV 08/02/17 09:00 08/02/17 21:00 DC 08/02/17 21:32 5 MLS/MIN Vancomycin HCl 1500 mg/Sodium Chloride 530 ml @ 200 mls/hr Q24H IV 08/04/17 09:00 08/06/17 18:59 08/04/17 08:41 200 MLS/HR (Judie Rivera CRNP) Objective Vital Signs Date Time Temp Pulse Resp B/P (MAP) Pulse Ox O2 Delivery O2 Flow Rate FiO2 08/04/17 08:00 97 Nasal Cannula 4.0 08/04/17 08:00 36.9 92 18 121/65 (83) 97 Nasal Cannula 4.0 08/04/17 04:05 36.9 88 18 130/62 (84) 95 Nasal Cannula 4.0 08/04/17 04:00 Nasal Cannula 4.0 08/03/17 23:59 36.8 89 20 130/58 (82) 94 Nasal Cannula 4.0 08/03/17 23:59 Nasal Cannula 4.0 08/03/17 20:00 Nasal Cannula 4.0 08/03/17 20:00 36.9 89 18 136/59 (84) 94 Nasal Cannula 4.0 08/03/17 16:00 92 Nasal Cannula 4.0 08/03/17 16:00 36.9 89 18 131/56 (81) 92 Nasal Cannula 4.0 08/03/17 12:00 36.7 87 18 125/62 (83) 94 Nasal Cannula 4.0 08/03/17 12:00 94 Nasal Cannula 4.0 (Judie Rivera CRNP) Physical Exam Notes: General: no distress Eyes: normal inspection, PERLL Respiratory: chest non tender, clear to auscultation, normal breath sounds, no respiratory distress, no accessory muscle use Cardiac: regular rate and rhythm, no rub or gallop, 3/4 systolic murmur, no edema, no jvd GI/: active bowel sounds, no abd pain or tenderness, soft, non distended Extremities: normal range of motion, normal strength, non tender Neuro/Psych: alert and oriented x 3, normal mood and affect Skin: normal color, dry (Judie Rivera CRNP) Laboratory Results Last 24 Hours Test 08/04/17 05:27 08/04/17 08:58 Creatinine 1.22 mg/dl 1.18 mg/dl Est Creatinine Clear Calc Drug Dose 55.7 ml/min 57.5 ml/min Estimated GFR () 65.9 68.6 Estimated GFR (Non- 56.8 59.2 Random Vancomycin Level 19.7 mcg/ml White Blood Count 7.93 K/uL Red Blood Count 3.01 M/uL Hemoglobin 7.9 g/dL Hematocrit 27.3 % Mean Corpuscular Volume 90.7 fL Mean Corpuscular Hemoglobin 26.2 pg Mean Corpuscular Hemoglobin Concent 28.9 g/dl Platelet Count 180 K/uL Mean Platelet Volume 9.5 fL Neutrophils (%) (Auto) 65.7 % Lymphocytes (%) (Auto) 16.1 % Monocytes (%) (Auto) 9.7 % Eosinophils (%) (Auto) 3.0 % Basophils (%) (Auto) 0.8 % Neutrophils # (Auto) 5.21 K/uL Lymphocytes # (Auto) 1.28 K/uL Monocytes # (Auto) 0.77 K/uL Eosinophils # (Auto) 0.24 K/uL Basophils # (Auto) 0.06 K/uL RDW Standard Deviation 57.0 fL RDW Coefficient of Variation 17.3 % Immature Granulocyte % (Auto) 4.7 % Immature Granulocyte # (Auto) 0.37 K/uL Large Platelets 1+ Polychromasia 1+ Ovalocytes 1+ Acanthocytes 1+ Prothrombin Time 26.7 SECONDS Prothromb Time International Ratio 2.6 Sodium Level 139 mmol/L Potassium Level 3.6 mmol/L Chloride Level 104 mmol/L Carbon Dioxide Level 33 mmol/L Anion Gap 2.0 mmol/L Blood Urea Nitrogen 15 mg/dl BUN/Creatinine Ratio 12.8 Random Glucose 114 mg/dl Calcium Level 8.0 mg/dl (Judie Rivera, [place]) Assessment and Plan Mr. Garcia is a 77 year old man here for increased weakness Acute Hypoxic Hypercarbic Respiratory Failure 2/2 Acute on Chronic Systolic CHF and Multifocal Pneumonia/Sepsis/E.faecalis UTI - Patient was intubated on 07/30 and respiratory acidosis improved on subsequent draws and extubated on 08/01 - Pressor support off since 08/01 - continue Zosyn and Vancomycin for now - ID on board - Currently at a slight negative fluid balance - continue diuresis - Daily Bumex was discontinued at [facility] - po bumex regimen has been resumed following diuresis with IV lasix SANTHOSH on CKD Stage III: - resolved, creat 1.18 - Nephrology following - appreciate recommendations - avoid nephrotoxins and maintain a slight negative fluid balance Hyperkalemia: RESOLVED - potassium was not discontinued when Bumex was discontinue at [facility] - trended down Hypokalemia - repleated and resolved CAD S/P CABG; AAA/Aortic Dissection; S/P ICD/Pacer; Acute Systolic CHF; Atrial Fibrillation: Supratherapeutic INR - Has bovine valve - INR goal 2-3 - Amiodarone 200 mg daily, Pravastatin 40 mg daily, and ASA 81 mg daily - Restart Toprol at reduced dosing of 50 mg daily and titrate back to 100 mg daily as tolerated, - Restart Ramipril if bp tolerates Toprol resumption - INR supratherapuetic likely due to interactions with other medications vs possible relation to shock/liver? -Coumadin held since 08/01 for supratherapeutic INR - 2.6 today, resume warfarin Weakness - neuro consulted - patient has history of transverse myelitis however Dr. Collins does not feel this is currently an issue. His feeling is that patient's weakness is likely an exacerbation of his existing baseline weakness due to medical condition such as UTI and hypoxia. Will likely improve as these things improve. - PT/OT CAD - no evidence of ACS - cont ASA, Statin, B xavier. DVT proph - Coumadin Full code (Judie Rivera ., [place]) i personally examined pt and verified all vitale points w Judith PORTER feeling better breathing better notes he believes aneurysm has been there for a while and is too dangerous to fix vitals noted nad breathing unlabored no pallor or icterus, extremities b/l LE without ischemic findings acute hypoxic respiratory failure - improvign, continue current treatment otherwise as above (Jerrod Beyer D.O.)
[2017-08-04] MEDS ORDERED: METOPROLOL SUCC 50MG EXT REL TAB PO ONE (11:00)
--- NOTE | 2017-08-04 11:44 | Pharmacy Progress Note ---
Pharmacy Abx Dose Progress Nt Date of Service Aug 04, 2017. Pharmacy Dosing Scope The patient is currently receiving the following antimicrobial agents per Pharmacy consult: * Vancomycin 1500 mg IV every 18 hours * Zosyn 3.375gm ext-infusion IV Q 8 hours Objective Height (Feet): 6 Height (Inches): 0.00 Weight (Kilograms): 92.500 Vital Signs (Past 12Hrs) Vital Signs Past 12 Hours Date Time Temp Pulse Resp B/P (MAP) Pulse Ox O2 Delivery O2 Flow Rate FiO2 08/04/17 08:00 97 Nasal Cannula 4.0 08/04/17 08:00 36.9 92 18 121/65 (83) 97 Nasal Cannula 4.0 08/04/17 04:05 36.9 88 18 130/62 (84) 95 Nasal Cannula 4.0 08/04/17 04:00 Nasal Cannula 4.0 08/03/17 23:59 36.8 89 20 130/58 (82) 94 Nasal Cannula 4.0 08/03/17 23:59 Nasal Cannula 4.0 Lab Results (24Hrs) Laboratory Tests (24 Hours) Test 08/04/17 08:58 White Blood Count 7.93 K/uL (4.8-10.8) Red Blood Count 3.01 M/uL (4.7-6.1) L Hemoglobin 7.9 g/dL (14.0-18.0) L Hematocrit 27.3 % (42-52) L Mean Corpuscular Volume 90.7 fL (80-100) Mean Corpuscular Hemoglobin 26.2 pg (25-34) Mean Corpuscular Hemoglobin Concent 28.9 g/dl (32-36) L Platelet Count 180 K/uL (130-400) Mean Platelet Volume 9.5 fL (7.4-10.4) Neutrophils (%) (Auto) 65.7 % Lymphocytes (%) (Auto) 16.1 % Monocytes (%) (Auto) 9.7 % Eosinophils (%) (Auto) 3.0 % Basophils (%) (Auto) 0.8 % Neutrophils # (Auto) 5.21 K/uL (1.4-6.5) Lymphocytes # (Auto) 1.28 K/uL (1.2-3.4) Monocytes # (Auto) 0.77 K/uL (0.11-0.59) H Eosinophils # (Auto) 0.24 K/uL (0-0.5) Basophils # (Auto) 0.06 K/uL (0-0.2) Micro Results Date/Time Source Procedure Growth Status 07/30/17 22:46 Blood Blood Culture - Preliminary NO GROWTH TO DATE. Resulted 07/30/17 22:45 Blood Blood Culture - Preliminary NO GROWTH TO DATE. Resulted 07/28/17 20:19 Blood Blood Culture - Final NO GROWTH Complete 07/28/17 20:00 Blood Blood Culture - Final Corynebacterium Species Complete 07/29/17 19:45 Nasal MRSA DNA Surveillance Screen - Final Specimen Positive for MRSA by DNA Probe Complete 07/30/17 13:30 Urine,Catheterized Urine Culture - Final NO GROWTH - LESS THAN 1,000 COLONIES/ML Complete 07/28/17 20:52 Urine , Clean Catch Urine Culture - Final Enterococcus Faecalis Complete Risk Factors for Resistance * Recent resident of [facility] * Hospitalization for 48 hours or more within the past 90 days (06/24-07/01) * Current hospitalization > 5 days * Antimicrobial use within the last 90 days (Ceftriaxone) Assessment & Plan Assessment * Receiving vancomycin + Zosyn IV for sepsis, health-care acquired pneumonia, complicated UTI, decubital ulcers * Today is day # 7 vancomycin/Zosyn therapy * Renal fxn appears to be fairly stable, SCr ranging 1.0-1.23 over the last 4 days, U.O. adequate * E faecalis growing in urine cx; MRSA nasal swab + * Afebrile, no leukocytosis noted on labs, VSS and sat mid-90's on 4L NC Plan Vancomycin IV * Trough levels have been climbing on a regimen of 1500mg Q 18 hours * Vancomycin placed on hold after AM dose given yesterday and random vancomycin level drawn ~24 hrs later * Random level 19.7, therapeutic * Will change dose to 1500mg IV Q 24 hours * If therapy is to continue beyond 7 days, will check trough level with 3rd dose of new regimen Piperacillin/tazobactam * Continue 3.375 g IV extended infusion every 8 hours Pharmacy will continue to follow and will adjust dose/frequency as necessary. Thank you.
[2017-08-04] MEDS: WARFARIN SOD 5 MG TAB PO SCH (16:28)
[2017-08-04] MEDS: POLYETHYLENE (MIRALAX) 17 GM PACK PO PRN (16:28)
--- NOTE | 2017-08-04 20:24 | Infectious Disease Progress Nt ---
Progress Note Date of Service Aug 04, 2017. Subjective Pt evaluation today including: conversation w/ patient, physical exam, chart review, lab review, review of studies, conversation w/ media consultant, review of inpatient medication list Patient offering no new complaints today. Remains afebrile. No increase in cough or shortness of breath. All Other Systems: Reviewed and Negative Medications Current Inpatient Medications Medications (Trade) Dose Ordered Sig/Deoin Route Start Time Stop Time Status Last Admin Dose Admin Amiodarone HCl (Cordarone Tab) 200 mg QAM PO 07/29/17 09:00 08/28/17 08:59 08/04/17 07:37 200 MG Ascorbic Acid (Vitamin C Tab) 500 mg QAM PO 07/29/17 09:00 08/28/17 08:59 08/04/17 07:38 500 MG Levothyroxine Sodium (Synthroid Tab) 25 mcg DAILYBB PO 07/29/17 06:30 08/28/17 06:59 08/04/17 05:39 25 MCG Pravastatin Sodium (Pravachol Tab) 40 mg HS PO 07/29/17 21:00 08/28/17 20:59 08/03/17 20:47 40 MG Warfarin Sodium (Coumadin Tab) 5 mg DAILY@16 PO 07/29/17 16:00 08/28/17 15:59 Future hold 08/04/17 16:28 5 MG Acetaminophen (Tylenol Tab) 650 mg Q4H PRN PO 07/28/17 22:00 08/27/17 21:59 07/30/17 03:11 650 MG Al Hydrox/Mg Hydrox/Simethicone (Maalox Max Susp) 15 ml Q4H PRN PO 07/28/17 22:00 08/27/17 21:59 Magnesium Hydroxide (Milk Of Magnesia Susp) 30 ml Q6H PRN PO 07/28/17 22:00 08/27/17 21:59 Polyethylene (Miralax Powder Packet) 17 gm DAILY PRN PO 07/28/17 22:00 08/27/17 21:59 08/04/17 16:28 17 GM Miscellaneous (Iv Fluids Completed) 1 ea PRN PRN N/A 07/29/17 02:30 07/29/18 02:29 Piperacillin Sod/ Tazobactam Sod 3.375 gm/Dextrose 115 ml @ 28.75 mls/ hr Q8H IV 07/29/17 22:00 08/13/17 21:59 08/04/17 13:55 28.75 MLS/HR Miscellaneous Information (Consult) 1 ea UD PRN N/A 07/29/17 16:00 08/13/17 15:59 Miscellaneous Information (Consult) 1 ea UD PRN N/A 07/29/17 16:00 08/28/17 15:59 Aspirin (Aspirin Chew) 81 mg QAM PO 07/31/17 09:00 08/30/17 08:59 08/04/17 07:37 81 MG Albuterol/ Ipratropium (Duoneb) 3 ml QIDR PRN INH 07/30/17 18:00 08/29/17 17:59 Docusate Sodium (coLACE CAP) 100 mg QPM PO 08/02/17 21:00 09/01/17 20:59 08/03/17 20:47 100 MG Bumetanide (Bumex Tab) 1 mg QAM PO 08/02/17 09:00 09/01/17 08:59 08/04/17 07:37 1 MG Heparin Sodium (Porcine) (Heparin 10 Unit/ ml 5 ml Flush) 5 ml PRN PRN FLUSH 08/02/17 18:15 09/01/17 18:14 Vancomycin HCl 1500 mg/Sodium Chloride 530 ml @ 200 mls/hr Q24H IV 08/04/17 09:00 08/06/17 18:59 08/04/17 08:41 200 MLS/HR Metoprolol Succinate (Toprol Xl Tab) 50 mg QAM PO 08/05/17 09:00 09/04/17 08:59 Objective Vital Signs Date Time Temp Pulse Resp B/P (MAP) Pulse Ox O2 Delivery O2 Flow Rate FiO2 08/04/17 19:32 36.8 82 18 119/63 (81) 95 Nasal Cannula 4.0 08/04/17 16:00 37.0 89 18 122/58 (79) 95 Nasal Cannula 4.0 08/04/17 16:00 95 Nasal Cannula 4.0 08/04/17 12:00 98 Nasal Cannula 4.0 08/04/17 12:00 37.0 88 18 107/67 (80) 98 Nasal Cannula 4.0 08/04/17 09:34 90 96 08/04/17 08:00 97 Nasal Cannula 4.0 08/04/17 08:00 36.9 92 18 121/65 (83) 97 Nasal Cannula 4.0 08/04/17 04:05 36.9 88 18 130/62 (84) 95 Nasal Cannula 4.0 08/04/17 04:00 Nasal Cannula 4.0 08/03/17 23:59 36.8 89 20 130/58 (82) 94 Nasal Cannula 4.0 08/03/17 23:59 Nasal Cannula 4.0 Physical Exam General Appearance: WD/WN, no apparent distress Eyes: normal inspection, EOMI, sclerae normal ENT: normal ENT inspection, pharynx normal Neck: supple, no adenopathy, thyroid normal, trachea midline Respiratory/Chest: chest non-tender, lungs clear, normal breath sounds, no respiratory distress Cardiovascular: regular rate, rhythm, no gallop, + systolic murmur Abdomen: normal bowel sounds, non tender, soft, no organomegaly Extremities: non-tender, no calf tenderness Neurologic/Psychiatric: alert, oriented x 3 Skin: normal color, warm/dry, no rash Lymphatic: no adenopathy Laboratory Results Last 24 Hours Test 08/04/17 05:27 08/04/17 08:58 Creatinine 1.22 mg/dl 1.18 mg/dl Est Creatinine Clear Calc Drug Dose 55.7 ml/min 57.5 ml/min Estimated GFR () 65.9 68.6 Estimated GFR (Non- 56.8 59.2 Random Vancomycin Level 19.7 mcg/ml White Blood Count 7.93 K/uL Red Blood Count 3.01 M/uL Hemoglobin 7.9 g/dL Hematocrit 27.3 % Mean Corpuscular Volume 90.7 fL Mean Corpuscular Hemoglobin 26.2 pg Mean Corpuscular Hemoglobin Concent 28.9 g/dl Platelet Count 180 K/uL Mean Platelet Volume 9.5 fL Neutrophils (%) (Auto) 65.7 % Lymphocytes (%) (Auto) 16.1 % Monocytes (%) (Auto) 9.7 % Eosinophils (%) (Auto) 3.0 % Basophils (%) (Auto) 0.8 % Neutrophils # (Auto) 5.21 K/uL Lymphocytes # (Auto) 1.28 K/uL Monocytes # (Auto) 0.77 K/uL Eosinophils # (Auto) 0.24 K/uL Basophils # (Auto) 0.06 K/uL RDW Standard Deviation 57.0 fL RDW Coefficient of Variation 17.3 % Immature Granulocyte % (Auto) 4.7 % Immature Granulocyte # (Auto) 0.37 K/uL Large Platelets 1+ Polychromasia 1+ Ovalocytes 1+ Acanthocytes 1+ Prothrombin Time 26.7 SECONDS Prothromb Time International Ratio 2.6 Sodium Level 139 mmol/L Potassium Level 3.6 mmol/L Chloride Level 104 mmol/L Carbon Dioxide Level 33 mmol/L Anion Gap 2.0 mmol/L Blood Urea Nitrogen 15 mg/dl BUN/Creatinine Ratio 12.8 Random Glucose 114 mg/dl Calcium Level 8.0 mg/dl Assessment and Plan (1) Hypotension (2) Pleural effusion Status: Acute (3) Hypoxia Status: Acute (4) Acute respiratory failure with hypoxia and hypercapnia Status: Acute (5) Hyperkalemia 77-year-old male with multiple medical comorbidities status post recent left hip surgery, now presents with acute respiratory failure requiring intubation, with urinalysis suggestive of infection, as well as gluteal decubitus with positive culture for methicillin sensitive Staph aureus. Patient extubated successfully, and would continue Zosyn, likely in the range of 7 days total for possible pneumonia and urinary tract infection as well as decubitus ulcer.
[2017-08-04] MEDS: PRAVASTATIN SOD 40 MG TAB PO SCH (20:40)
[2017-08-04] MEDS: DOCUSATE SODIUM 100 MG CAP PO SCH (20:40)
[2017-08-05] VITALS (8 sets, daily range): BP systolic 99–128; BP diastolic 47–73; PULSE 75–87; TEMP 36.3–37.4; O2SAT 91–99
[2017-08-05] MEDS: PIPERACILL/TAZOBAC IV 3.375 GM in DEXTROSE 5% 100ML 100 ML IV SCH ×3 (05:44→21:25)
[2017-08-05] MEDS: LEVOTHYROXINE 25 MCG TAB PO SCH (05:44)
[2017-08-05 06:29] LABS: HEMATOCRIT 28.4 % (42-52); HEMOGLOBIN 8.3 g/dL (14.0-18.0); MEAN CELL VOLUME 90.4 fL (80-100); MEAN CORPUSCULAR HEMOGLOBIN 26.4 pg (25-34); MEAN CORPUSCULAR HGB CONC 29.2 g/dl (32-36); MEAN PLATELET VOLUME 10.5 fL (7.4-10.4); NUCLEATED RED BLOOD CELL ABS 0.02 K/uL (0-0); PLATELET COUNT 225 K/uL (130-400); RED CELL DISTRIBUTION WIDTH CV 17.4 % (11.5-14.5); RED CELL DISTRIBUTION WIDTH SD 57.2 fL (36.4-46.3); WHITE BLOOD COUNT 9.33 K/uL (4.8-10.8)
[2017-08-05 06:41] LABS: INR 2.7 (0.9-1.1)
[2017-08-05 07:06] LABS: CALCIUM 8.2 mg/dl (8.5-10.1); CREATININE 1.17 mg/dl (0.60-1.40); POTASSIUM 3.5 mmol/L (3.5-5.1)
[2017-08-05] MEDS: AMIODARONE 200 MG TAB PO SCH (07:47)
[2017-08-05] MEDS: ASPIRIN 81 MG CHEW PO SCH (07:47)
[2017-08-05] MEDS: ASCORBIC ACID 500 MG TAB PO SCH (07:47)
[2017-08-05] MEDS: METOPROLOL SUCC 50MG EXT REL TAB PO SCH (07:47)
[2017-08-05] MEDS: BUMETANIDE 1 MG TAB PO SCH (07:48)
[2017-08-05] MEDS: VANCOMYCIN INJ 1,500 MG in SODIUM CHLORIDE 0.9% 500ML 500 ML IV SCH (07:52)
--- NOTE | 2017-08-05 09:47 | Medical Consult ---
Consultation Note Date of Service Aug 05, 2017. (Michelle Real, PA-C) Consultation Note 77 yo m with multiple medical problems, admitted with sepsis, seen in consultation today for his 6.2cm AAA and aortic dissection. Pt was seen in office by Dr Dunaway in 05/2017( 2 months ago) for same. AAA and dissection stable. D/T size and location of AAA as well as dissection, pt would require complicated, high risk, open surgical repair at tertiary care center. Discussed again with pt. Pt does not wish to proceed with repair. Advised him to call office if he wishes to discuss again. Otherwise, no f/u needed. Please call if needed. (Michelle Real, PA-C) Patient was seen, examined, and chart reviewed. Agree with exam and treatment plan of the Vascular PA. Thank you very much for letting me participate in the care of this patient. (Collin Dunaway M.D.)
--- NOTE | 2017-08-05 11:41 | Hospitalist Progress Note ---
Hospitalist Progress Note Date of Service Aug 05, 2017. (Judie Rivera CRNP) Subjective Pt evaluation today including: conversation w/ patient, physical exam, chart review, lab review, review of inpatient medication list Voiding: suggs catheter in place Mr. Garcia is very drowsy today, reports he's been sleeping most of the morning. He denies pain. He is feeling some sob. ROS Constitutional: no chills, aches, sweats or fever Respiratory: no cough, sputum, or wheezing Cardiac: no chest pain, palpitations, edema, orthopnea or lightheadedness GI: no abdominal pain, nausea, vomiting, diarrhea or constipation : no dysuria or hesitancy Extremities: no joint pain or weakness Skin: no rash All other systems reviewed and negative (Judie Rivera CRNP) Medications Medications (Trade) Dose Ordered Sig/Deion Route Start Time Stop Time Status Last Admin Dose Admin Metoprolol Succinate (Toprol Xl Tab) 50 mg QAM PO 08/05/17 09:00 09/04/17 08:59 08/05/17 07:47 50 MG (Judie Rivera CRNP) Objective Vital Signs Date Time Temp Pulse Resp B/P (MAP) Pulse Ox O2 Delivery O2 Flow Rate FiO2 08/05/17 08:00 Nasal Cannula 4.0 08/05/17 07:53 36.7 84 33 99/51 (67) 95 Nasal Cannula 3.0 08/05/17 04:00 Nasal Cannula 4.0 08/05/17 03:49 36.8 87 19 110/47 (68) 91 Nasal Cannula 4.0 08/05/17 00:00 Nasal Cannula 4.0 08/04/17 23:20 36.7 85 24 100/59 (73) 94 Nasal Cannula 4.0 08/04/17 20:00 Nasal Cannula 4.0 08/04/17 19:32 36.8 82 18 119/63 (81) 95 Nasal Cannula 4.0 08/04/17 16:00 37.0 89 18 122/58 (79) 95 Nasal Cannula 4.0 08/04/17 16:00 95 Nasal Cannula 4.0 08/04/17 12:00 98 Nasal Cannula 4.0 08/04/17 12:00 37.0 88 18 107/67 (80) 98 Nasal Cannula 4.0 (Judie Rivera CRNP) Physical Exam Notes: General: no distress Eyes: normal inspection, PERLL Respiratory: chest non tender, expiratory wheezes/faint coarseness bilateral bases, no respiratory distress, no accessory muscle use Cardiac: regular rate and rhythm, no rub or gallop, no murmur, no edema, no jvd GI/: active bowel sounds, no abd pain or tenderness, soft, non distended Extremities: normal range of motion, normal strength, non tender Neuro/Psych: alert and oriented x 3, normal mood and affect Skin: normal color, dry (Judie Rivera CRNP) Laboratory Results Last 24 Hours Test 08/05/17 06:08 White Blood Count 9.33 K/uL Red Blood Count 3.14 M/uL Hemoglobin 8.3 g/dL Hematocrit 28.4 % Mean Corpuscular Volume 90.4 fL Mean Corpuscular Hemoglobin 26.4 pg Mean Corpuscular Hemoglobin Concent 29.2 g/dl RDW Standard Deviation 57.2 fL RDW Coefficient of Variation 17.4 % Platelet Count 225 K/uL Mean Platelet Volume 10.5 fL Nucleated RBC Absolute Count (auto) 0.02 K/uL Nucleated Red Blood Cells % 0.2 % Prothrombin Time 28.2 SECONDS Prothromb Time International Ratio 2.7 Sodium Level 138 mmol/L Potassium Level 3.5 mmol/L Chloride Level 102 mmol/L Carbon Dioxide Level 31 mmol/L Anion Gap 5.0 mmol/L Blood Urea Nitrogen 15 mg/dl Creatinine 1.17 mg/dl Est Creatinine Clear Calc Drug Dose 63.3 ml/min Estimated GFR () 69.3 Estimated GFR (Non- 59.8 BUN/Creatinine Ratio 12.8 Random Glucose 103 mg/dl Calcium Level 8.2 mg/dl (Judie Rivera CRNP) Assessment and Plan Mr. Garcia is a 77 year old man here for increased weakness Acute Hypoxic Hypercarbic Respiratory Failure 2/2 Acute on Chronic Systolic CHF and Multifocal Pneumonia/Sepsis/E.faecalis UTI - Patient was intubated on 07/30 and respiratory acidosis improved on subsequent draws and extubated on 2/2 - Pressor support off since 08/01 - continue Zosyn and Vancomycin for now - ID on board - recommend 2-3 more days - Currently at a slight negative fluid balance - continue diuresis - Daily Bumex was discontinued at [facility] - po bumex regimen has been resumed following diuresis with IV lasix SANTHOSH on CKD Stage III: - resolved - Nephrology following - appreciate recommendations - avoid nephrotoxins and maintain a slight negative fluid balance Hyperkalemia: RESOLVED - potassium was not discontinued when Bumex was discontinue at - trended down Hypokalemia - repleated and resolved CAD S/P CABG; AAA/Aortic Dissection; S/P ICD/Pacer; Acute Systolic CHF; Atrial Fibrillation: Supratherapeutic INR - Has bovine valve - INR goal 2-3 - Amiodarone 200 mg daily, Pravastatin 40 mg daily, and ASA 81 mg daily - Restart Toprol at reduced dosing of 50 mg daily and titrate back to 100 mg daily as tolerated, - Restart Ramipril if bp tolerates Toprol resumption - INR supratherapuetic likely due to interactions with other medications vs possible relation to shock/liver? -Coumadin held since 08/01 for supratherapeutic INR - therapeutic and restarted yesterday however patient has developed hematoma over left arm - hold for now Left arm hematoma 2/2 PICC attempt - warm moist heat - monitor for expansion - Hgb higher today than yesteray, VSS - hold Coumadin for a day or two Weakness - neuro consulted - patient has history of transverse myelitis however Dr. Collins does not feel this is currently an issue. His feeling is that patient's weakness is likely an exacerbation of his existing baseline weakness due to medical condition such as UTI and hypoxia. Will likely improve as these things improve. - PT/OT CAD - no evidence of ACS - cont ASA, Statin, B xavier. 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 Dunaway who was consulted - no intervention at this time. 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 out of bed "that felt really good" no other new complaints - arm hematoma not bothering him much vitals noted nad breahting unlabored no pallor or icterus, L arm ~5-7cm hematoma minimally tender pneumonia/hypoxia - improving hematoma - warm compresses, time otherwise as above, improving (Jerrod Beyer D.O.)
[2017-08-05] MEDS ORDERED: ALBUT/IPRATROP 3MG/0.5MG NEB 3 ML VIAL INH ONE (11:45)
--- NOTE | 2017-08-05 14:37 | Infectious Disease Progress Nt ---
Progress Note Date of Service Aug 05, 2017. Subjective Pt evaluation today including: conversation w/ patient, physical exam, chart review, lab review, review of studies, conversation w/ insolvency consultant, review of inpatient medication list Patient is somewhat sleepy this morning. Otherwise appears comfortable, no distress. Remains afebrile. Still with some shortness of breath. All Other Systems: Reviewed and Negative Medications Current Inpatient Medications Medications (Trade) Dose Ordered Sig/Deion Route Start Time Stop Time Status Last Admin Dose Admin Amiodarone HCl (Cordarone Tab) 200 mg QAM PO 07/29/17 09:00 08/28/17 08:59 08/05/17 07:47 200 MG Ascorbic Acid (Vitamin C Tab) 500 mg QAM PO 07/29/17 09:00 08/28/17 08:59 08/05/17 07:47 500 MG Levothyroxine Sodium (Synthroid Tab) 25 mcg DAILYBB PO 07/29/17 06:30 08/28/17 06:59 08/05/17 05:44 25 MCG Pravastatin Sodium (Pravachol Tab) 40 mg HS PO 07/29/17 21:00 08/28/17 20:59 08/04/17 20:40 40 MG Warfarin Sodium (Coumadin Tab) 5 mg DAILY@16 PO 07/29/17 16:00 08/28/17 15:59 Future Hold 08/04/17 16:28 5 MG Acetaminophen (Tylenol Tab) 650 mg Q4H PRN PO 07/28/17 22:00 08/27/17 21:59 07/30/17 03:11 650 MG Al Hydrox/Mg Hydrox/Simethicone (Maalox Max Susp) 15 ml Q4H PRN PO 07/28/17 22:00 08/27/17 21:59 Magnesium Hydroxide (Milk Of Magnesia Susp) 30 ml Q6H PRN PO 07/28/17 22:00 08/27/17 21:59 Polyethylene (Miralax Powder Packet) 17 gm DAILY PRN PO 07/28/17 22:00 08/27/17 21:59 08/04/17 16:28 17 GM Miscellaneous (Iv Fluids Completed) 1 ea PRN PRN N/A 07/29/17 02:30 07/29/18 02:29 Piperacillin Sod/ Tazobactam Sod 3.375 gm/Dextrose 115 ml @ 28.75 mls/ hr Q8H IV 07/29/17 22:00 08/13/17 21:59 08/05/17 05:44 28.75 MLS/HR Miscellaneous Information (Consult) 1 ea UD PRN N/A 07/29/17 16:00 08/13/17 15:59 Miscellaneous Information (Consult) 1 ea UD PRN N/A 07/29/17 16:00 08/28/17 15:59 Aspirin (Aspirin Chew) 81 mg QAM PO 07/31/17 09:00 08/30/17 08:59 08/05/17 07:47 81 MG Albuterol/ Ipratropium (Duoneb) 3 ml QIDR PRN INH 07/30/17 18:00 08/29/17 17:59 Docusate Sodium (coLACE CAP) 100 mg QPM PO 08/02/17 21:00 09/01/17 20:59 08/04/17 20:40 100 MG Bumetanide (Bumex Tab) 1 mg QAM PO 08/02/17 09:00 09/01/17 08:59 08/05/17 07:48 1 MG Heparin Sodium (Porcine) (Heparin 10 Unit/ ml 5 ml Flush) 5 ml PRN PRN FLUSH 08/02/17 18:15 09/01/17 18:14 Vancomycin HCl 1500 mg/Sodium Chloride 530 ml @ 200 mls/hr Q24H IV 08/04/17 09:00 08/06/17 18:59 08/05/17 07:52 200 MLS/HR Metoprolol Succinate (Toprol Xl Tab) 50 mg QAM PO 08/05/17 09:00 09/04/17 08:59 08/05/17 07:47 50 MG Objective Vital Signs Date Time Temp Pulse Resp B/P (MAP) Pulse Ox O2 Delivery O2 Flow Rate FiO2 08/05/17 12:11 36.8 75 24 128/73 (91) 98 Nasal Cannula 3.0 08/05/17 12:00 Nasal Cannula 4.0 08/05/17 08:00 Nasal Cannula 4.0 08/05/17 07:53 36.7 84 33 99/51 (67) 95 Nasal Cannula 3.0 08/05/17 04:00 Nasal Cannula 4.0 08/05/17 03:49 36.8 87 19 110/47 (68) 91 Nasal Cannula 4.0 08/05/17 00:00 Nasal Cannula 4.0 08/04/17 23:20 36.7 85 24 100/59 (73) 94 Nasal Cannula 4.0 08/04/17 20:00 Nasal Cannula 4.0 08/04/17 19:32 36.8 82 18 119/63 (81) 95 Nasal Cannula 4.0 08/04/17 16:00 37.0 89 18 122/58 (79) 95 Nasal Cannula 4.0 08/04/17 16:00 95 Nasal Cannula 4.0 Physical Exam General Appearance: WD/WN, no apparent distress Eyes: normal inspection, EOMI, sclerae normal ENT: normal ENT inspection, pharynx normal Neck: supple, no adenopathy, thyroid normal, trachea midline Respiratory/Chest: chest non-tender, lungs clear, normal breath sounds, no respiratory distress Cardiovascular: regular rate, rhythm, no gallop, no murmur Abdomen: normal bowel sounds, non tender, soft, no organomegaly Extremities: non-tender, no calf tenderness Neurologic/Psychiatric: alert, oriented x 3 Skin: normal color, no rash, + pertinent finding (Buttock ulcer appears improved) Lymphatic: no adenopathy Laboratory Results Last 24 Hours Test 08/05/17 06:08 White Blood Count 9.33 K/uL Red Blood Count 3.14 M/uL Hemoglobin 8.3 g/dL Hematocrit 28.4 % Mean Corpuscular Volume 90.4 fL Mean Corpuscular Hemoglobin 26.4 pg Mean Corpuscular Hemoglobin Concent 29.2 g/dl RDW Standard Deviation 57.2 fL RDW Coefficient of Variation 17.4 % Platelet Count 225 K/uL Mean Platelet Volume 10.5 fL Nucleated RBC Absolute Count (auto) 0.02 K/uL Nucleated Red Blood Cells % 0.2 % Prothrombin Time 28.2 SECONDS Prothromb Time International Ratio 2.7 Sodium Level 138 mmol/L Potassium Level 3.5 mmol/L Chloride Level 102 mmol/L Carbon Dioxide Level 31 mmol/L Anion Gap 5.0 mmol/L Blood Urea Nitrogen 15 mg/dl Creatinine 1.17 mg/dl Est Creatinine Clear Calc Drug Dose 63.3 ml/min Estimated GFR () 69.3 Estimated GFR (Non- 59.8 BUN/Creatinine Ratio 12.8 Random Glucose 103 mg/dl Calcium Level 8.2 mg/dl Assessment and Plan (1) Hypotension (2) Pleural effusion Status: Acute (3) Hypoxia Status: Acute (4) Acute respiratory failure with hypoxia and hypercapnia Status: Acute (5) Hyperkalemia 77-year-old male with multiple medical comorbidities status post recent left hip surgery, now presents with acute respiratory failure requiring intubation but now extubated, with urinalysis suggestive of infection, as well as gluteal decubitus with positive culture for methicillin sensitive Staph aureus. Would complete 7 days of IV Zosyn, then consider transition to oral cephalexin to continue treatment for gluteal ulceration.
[2017-08-05] MEDS: DOCUSATE SODIUM 100 MG CAP PO SCH (21:24)
[2017-08-05] MEDS: PRAVASTATIN SOD 40 MG TAB PO SCH (21:24)
[2017-08-06] VITALS (14 sets, daily range): BP systolic 93–153; BP diastolic 48–77; PULSE 73–86; TEMP 36.4–37; O2SAT 92–100
[2017-08-06] MEDS: PIPERACILL/TAZOBAC IV 3.375 GM in DEXTROSE 5% 100ML 100 ML IV SCH (05:28)
[2017-08-06] MEDS: LEVOTHYROXINE 25 MCG TAB PO SCH (05:28)
[2017-08-06 07:36] LABS: INR 2.9 (0.9-1.1)
[2017-08-06 07:47] LABS: HEMATOCRIT 28.5 % (42-52); HEMOGLOBIN 8.2 g/dL (14.0-18.0); MEAN CELL VOLUME 91.1 fL (80-100); MEAN CORPUSCULAR HEMOGLOBIN 26.2 pg (25-34); MEAN CORPUSCULAR HGB CONC 28.8 g/dl (32-36); MEAN PLATELET VOLUME 10.4 fL (7.4-10.4); PLATELET COUNT 245 K/uL (130-400); RED CELL DISTRIBUTION WIDTH CV 17.8 % (11.5-14.5); RED CELL DISTRIBUTION WIDTH SD 58.4 fL (36.4-46.3); WHITE BLOOD COUNT 9.44 K/uL (4.8-10.8)
[2017-08-06 08:03] LABS: CALCIUM 8.3 mg/dl (8.5-10.1); CREATININE 1.02 mg/dl (0.60-1.40); POTASSIUM 3.7 mmol/L (3.5-5.1)
[2017-08-06] MEDS: AMIODARONE 200 MG TAB PO SCH (08:29)
[2017-08-06] MEDS: METOPROLOL SUCC 50MG EXT REL TAB PO SCH (08:29)
[2017-08-06] MEDS: BUMETANIDE 1 MG TAB PO SCH (08:29)
[2017-08-06] MEDS: ASCORBIC ACID 500 MG TAB PO SCH (08:30)
[2017-08-06] MEDS: VANCOMYCIN INJ 1,500 MG in SODIUM CHLORIDE 0.9% 500ML 500 ML IV SCH (08:32)
[2017-08-06] MEDS: ASPIRIN 81 MG CHEW PO SCH (08:32)
[2017-08-06] MEDS ORDERED: ALBUT/IPRATROP 3MG/0.5MG NEB 3 ML VIAL INH STA (09:04)
[2017-08-06] MEDS ORDERED: FUROSEMIDE INJ 40 MG in SYRINGE 0 ML IV ONE ×2 (09:30→14:00)
--- NOTE | 2017-08-06 09:36 | DIAGNOSTIC IMAGING REPORT ---
CHEST ONE VIEW PORTABLE CLINICAL HISTORY: hypoxia ACUTE CHANGE IN MENTAL STATUS COMPARISON STUDY: 08/02/2017 FINDINGS: The heart is enlarged. There are postsurgical changes of midline sternotomy. There is a left subclavian pacer/defibrillator present. There is a right-sided PICC catheter unchanged in position. The right internal jugular central venous catheter has been removed. There is radiographic evidence of worsening congestive failure with pulmonary edema. There are bilateral pleural effusions. Basal airspace opacities likely represent a combination of atelectasis and pulmonary edema.[ IMPRESSION: Worsening congestive failure and pulmonary edema with bilateral pleural effusions and bibasal airspace opacities Electronically signed by: Hernando Du M.D. 08/06/2017 9:35 AM Dictated Date/Time: 08/06/2017 9:33 AM
[2017-08-06] MEDS: CEPHALEXIN MONOHYDRATE 500 MG CAP PO SCH ×3 (13:21→21:00)
--- NOTE | 2017-08-06 14:38 | Hospitalist Progress Note ---
Hospitalist Progress Note Date of Service Aug 06, 2017. (Judie Rivera .[place]) Subjective Pt evaluation today including: conversation w/ patient, physical exam, chart review, lab review, review of inpatient medication list Voiding: no voiding problems Per nursing this am, patient was a bit confused and had difficulty manipulating objects this morning. When seeing him bedside he reports feeling confused and a bit weak but otherwise did not have complaints. Repeat vitals showed a pulse ox of 77%. ROS Constitutional: no chills, aches, sweats or fever Respiratory: no sob,cough, sputum, or wheezing Cardiac: no chest pain, palpitations, edema, orthopnea or lightheadedness GI: no abdominal pain, nausea, vomiting, diarrhea or constipation : no dysuria or hesitancy Extremities: no joint pain or weakness Skin: no rash All other systems reviewed and negative (Judie Rivera CRNP) Medications Medications Administered Medications (Trade) Dose Ordered Sig/Deion Route Start Time Stop Time Status Last Admin Dose Admin Sodium Chloride 1,000 ml @ 999 mls/hr Q1H1M STAT IV 07/28/17 19:54 07/28/17 20:54 DC 07/28/17 19:54 999 MLS/HR Cefepime HCl 1000 mg/Dextrose 111 ml @ 200 mls/hr NOW STAT IV 07/28/17 21:20 07/28/17 21:53 DC 07/28/17 21:52 200 MLS/HR Levofloxacin (Levaquin / D5W) 750 mg NOW STAT IV 07/28/17 21:20 07/28/17 21:22 DC 07/28/17 22:13 750 MG Amiodarone HCl (Cordarone Tab) 200 mg QAM PO 07/29/17 09:00 08/28/17 08:59 08/06/17 08:29 200 MG Ascorbic Acid (Vitamin C Tab) 500 mg QAM PO 07/29/17 09:00 08/28/17 08:59 08/06/17 08:30 500 MG Aspirin (Ecotrin Tab) 81 mg QAM PO 07/29/17 09:00 07/30/17 09:26 DC 07/30/17 09:12 81 MG Docusate Sodium (coLACE CAP) 100 mg QPM PO 07/29/17 21:00 07/30/17 21:28 DC 07/29/17 22:13 100 MG Famotidine (Pepcid Tab) 20 mg QAM PO 07/29/17 09:00 07/30/17 09:23 DC 07/30/17 09:13 20 MG Levothyroxine Sodium (Synthroid Tab) 25 mcg DAILYBB PO 07/29/17 06:30 08/28/17 06:59 08/06/17 05:28 25 MCG Metoprolol Succinate (Toprol Xl Tab) 100 mg QAM PO 07/29/17 09:00 07/29/17 19:00 DC 07/29/17 08:17 100 MG Pravastatin Sodium (Pravachol Tab) 40 mg HS PO 07/29/17 21:00 08/28/17 20:59 08/05/17 21:24 40 MG Warfarin Sodium (Coumadin Tab) 5 mg DAILY@16 PO 07/29/17 16:00 08/28/17 15:59 Future Hold 08/04/17 16:28 5 MG Enalapril Maleate (Vasotec Tab) 20 mg QAM PO 07/29/17 09:00 07/29/17 19:00 DC 07/29/17 08:16 20 MG Acetaminophen (Tylenol Tab) 650 mg Q4H PRN PO 07/28/17 22:00 08/27/17 21:59 07/30/17 03:11 650 MG Polyethylene (Miralax Powder Packet) 17 gm DAILY PRN PO 07/28/17 22:00 08/27/17 21:59 08/04/17 16:28 17 GM Furosemide 40 mg/ Syringe 4 ml @ 4 mls/min ONE ONCE IV 07/29/17 03:15 07/29/17 03:16 DC 07/29/17 04:32 4 MLS/MIN Ceftriaxone Sodium 1 gm/ Dextrose 50 ml @ 100 mls/hr Q24H IV 07/29/17 08:00 07/29/17 15:57 DC 07/29/17 08:15 100 MLS/HR Albuterol/ Ipratropium (Duoneb) 3 ml QIDR INH 07/29/17 08:00 07/30/17 18:05 DC 07/29/17 16:25 3 ML Furosemide 40 mg/ Syringe 4 ml @ 4 mls/min 1530 ONCE IV 07/29/17 15:30 1/30/18 15:31 DC 07/29/17 15:33 4 MLS/MIN Piperacillin Sod/ Tazobactam Sod 3.375 gm/Dextrose 115 ml @ 28.75 mls/ hr Q8H IV 07/29/17 22:00 08/13/17 21:59 08/06/17 05:28 28.75 MLS/HR Piperacillin Sod/ Tazobactam Sod 4.5 gm/Dextrose 120 ml @ 200 mls/hr NOW STAT IV 07/29/17 16:11 07/29/17 16:46 DC 07/29/17 16:11 200 MLS/HR Vancomycin HCl 2500 mg/Sodium Chloride 550 ml @ 200 mls/hr NOW STAT IV 07/29/17 16:12 07/29/17 18:56 DC 07/29/17 16:53 200 MLS/HR Vancomycin HCl 1500 mg/Sodium Chloride 530 ml @ 200 mls/hr Q12H IV 07/30/17 02:00 07/30/17 12:41 DC 07/30/17 01:17 200 MLS/HR Sodium Chloride 500 ml @ 999 mls/hr NOW STAT IV 07/29/17 19:43 07/29/17 20:13 DC 07/29/17 20:00 999 MLS/HR Dopamine HCl/ Dextrose (DOPamine 400MG / D5W) 400 mg STK-MED ONCE .ROUTE 07/29/17 20:27 07/29/17 20:28 DC 07/29/17 20:34 400 MG Dobutamine HCl 0 ml @ 0 mls/hr Q0M PRN IV 07/30/17 00:08 08/02/17 07:07 DC 07/31/17 22:30 30.7 MLS/HR Norepinephrine Bitartrate 8 mg/ Dextrose 508 ml @ 0 mls/hr Q0M PRN IV 07/30/17 05:05 08/02/17 06:55 DC 07/30/17 17:55 24 MLS/HR Sodium Bicarbonate (Sodium Bicarbonate 8.4% Inj) 150 ml NOW STAT IV 07/30/17 06:19 07/30/17 06:22 DC 07/30/17 06:27 150 ML Miscellaneous (Rapid Sequence Induction Bag) 1 ea STK-MED ONCE N/A 07/30/17 06:21 07/30/17 06:22 DC 07/30/17 06:50 1 EA Furosemide (Lasix Inj) 40 mg STK-MED ONCE .ROUTE 07/30/17 06:45 07/30/17 06:46 DC 07/30/17 06:49 40 MG Furosemide (Lasix Inj) 40 mg STK-MED ONCE .ROUTE 07/30/17 06:45 07/30/17 06:46 DC 07/30/17 06:50 40 MG Midazolam HCl (Versed Inj) 2 mg Q2H PRN IV 07/30/17 08:45 08/02/17 07:07 DC 07/30/17 11:34 2 MG Fentanyl Citrate (Fentanyl Inj) 100 mcg Q2H PRN IV 07/30/17 08:45 08/02/17 07:07 DC 07/30/17 13:55 100 MCG Vasopressin 50 units/Sodium Chloride 502.5 ml @ 24 mls/hr [id number] IV 07/30/17 08:45 08/02/17 06:55 DC 07/31/17 05:46 24 MLS/HR Magnesium Sulfate 1 gm/Prmx 100 ml @ 100 mls/hr Q1H IV 07/30/17 09:00 07/30/17 10:59 DC 07/30/17 10:18 100 MLS/HR Pantoprazole Sodium 40 mg/ Syringe 10 ml @ 5 mls/min DAILY@11 IV 07/30/17 11:00 08/02/17 06:55 DC 08/01/17 10:52 5 MLS/MIN Aspirin (Aspirin Chew) 81 mg QAM PO 07/31/17 09:00 08/30/17 08:59 08/06/17 08:32 81 MG Furosemide 80 mg/ Syringe 8 ml @ 4 mls/min NOW ONCE IV 07/30/17 18:30 07/30/17 18:31 DC 07/30/17 19:20 4 MLS/MIN Docusate Sodium (coLACE SYRUP) 100 mg QPM PO 07/30/17 21:30 08/02/17 02:13 DC 08/01/17 20:57 100 MG Vancomycin HCl 1750 mg/Sodium Chloride 535 ml @ 200 mls/hr Q24H IV 07/31/17 07:15 07/31/17 15:18 DC 07/31/17 07:47 200 MLS/HR Furosemide 40 mg/ Syringe 4 ml @ 4 mls/min ONE ONCE IV 07/31/17 08:45 07/31/17 08:46 DC 07/31/17 09:08 4 MLS/MIN Potassium Phosphate 21 mmol/ Sodium Chloride 507 ml @ 144.857 mls/hr ONE ONCE IV 07/31/17 08:45 07/31/17 12:14 DC 07/31/17 09:07 144.857 MLS/HR Potassium Chloride 20 meq/ Prmx 100 ml @ 50 mls/hr Q2H IV 07/31/17 09:30 07/31/17 13:29 DC 07/31/17 11:35 50 MLS/HR Vancomycin HCl 1500 mg/Sodium Chloride 530 ml @ 200 mls/hr Q24H IV 08/01/17 01:00 08/01/17 10:14 DC 08/01/17 01:18 200 MLS/HR Potassium Chloride 20 meq/ Prmx 100 ml @ 50 mls/hr Q2H IV 08/01/17 09:30 08/01/17 15:29 DC 08/01/17 13:33 50 MLS/HR Furosemide 30 mg/ Syringe 3 ml @ 4 mls/min BID IV 08/01/17 09:00 08/01/17 18:40 DC 08/01/17 09:33 4 MLS/MIN Vancomycin HCl 1500 mg/Sodium Chloride 530 ml @ 200 mls/hr Q18H IV 08/01/17 19:00 08/04/17 06:46 DC 08/03/17 06:14 200 MLS/HR Potassium/ Phosphorus/Sodium (Phospha 250 Neutral 155-852-130 Mg) 1 tab Q4H PO 08/02/17 02:00 08/02/17 10:01 DC 08/02/17 09:43 1 TAB Potassium Chloride (Klor-Con M10) 20 meq Q4H PO 08/02/17 02:00 08/02/17 10:01 DC 08/02/17 07:35 20 MEQ Docusate Sodium (coLACE CAP) 100 mg QPM PO 08/02/17 21:00 09/01/17 20:59 08/05/17 21:24 100 MG Bumetanide (Bumex Tab) 1 mg QAM PO 08/02/17 09:00 09/01/17 08:59 08/06/17 08:29 1 MG Acetazolamide Sodium 500 mg/ Syringe 5 ml @ 5 mls/min BID IV 08/02/17 09:00 08/02/17 21:00 DC 08/02/17 21:32 5 MLS/MIN Vancomycin HCl 1500 mg/Sodium Chloride 530 ml @ 200 mls/hr Q24H IV 08/04/17 09:00 08/06/17 18:59 08/06/17 08:32 200 MLS/HR Metoprolol Succinate (Toprol Xl Tab) 50 mg QAM PO 08/05/17 09:00 09/04/17 08:59 08/06/17 08:29 50 MG Metoprolol Succinate (Toprol Xl Tab) 50 mg 1100 ONCE PO 08/04/17 11:00 08/04/17 11:01 DC 08/04/17 11:21 50 MG (Judie Rivera, [place]) Objective Vital Signs Date Time Temp Pulse Resp B/P (MAP) Pulse Ox O2 Delivery O2 Flow Rate FiO2 08/06/17 07:54 36.7 77 32 153/64 (93) 95 Room Air 08/06/17 04:01 36.8 78 19 119/48 (71) 92 Nasal Cannula 4.0 08/06/17 04:00 Nasal Cannula 4.0 08/06/17 00:01 Nasal Cannula 4.0 08/05/17 23:49 37.0 78 19 119/56 (77) 94 Nasal Cannula 4.0 08/05/17 20:00 99 Nasal Cannula 4.0 08/05/17 19:05 36.3 82 32 111/64 (80) 99 Nasal Cannula 4.0 08/05/17 16:42 37.4 82 32 114/61 (78) Nasal Cannula 4.0 08/05/17 16:17 Nasal Cannula 4.0 08/05/17 16:00 98 Nasal Cannula 3.0 08/05/17 12:11 36.8 75 24 128/73 (91) 98 Nasal Cannula 3.0 08/05/17 12:00 Nasal Cannula 4.0 (Judie Rivera, [employer]) Physical Exam Notes: General: no distress Eyes: normal inspection, PERLL Respiratory: chest non tender, expiratory wheezes bilaterally, no respiratory distress, no accessory muscle use Cardiac: regular rate and rhythm, no rub or gallop, no murmur, no edema, no jvd GI/: active bowel sounds, no abd pain or tenderness, soft, non distended Extremities: normal range of motion, bilateral arm/hand weakness, unable to hold arms up or manipulate objects with hands Neuro/Psych: drowsy, oriented x 3 but confused, normal mood and affect Skin: normal color, dry (Judie Rivera CRNP) Laboratory Results Last 24 Hours Test 08/06/17 06:52 White Blood Count 9.44 K/uL Red Blood Count 3.13 M/uL Hemoglobin 8.2 g/dL Hematocrit 28.5 % Mean Corpuscular Volume 91.1 fL Mean Corpuscular Hemoglobin 26.2 pg Mean Corpuscular Hemoglobin Concent 28.8 g/dl RDW Standard Deviation 58.4 fL RDW Coefficient of Variation 17.8 % Platelet Count 245 K/uL Mean Platelet Volume 10.4 fL Prothrombin Time 30.1 SECONDS Prothromb Time International Ratio 2.9 Sodium Level 138 mmol/L Potassium Level 3.7 mmol/L Chloride Level 102 mmol/L Carbon Dioxide Level 31 mmol/L Anion Gap 5.0 mmol/L Blood Urea Nitrogen 15 mg/dl Creatinine 1.02 mg/dl Est Creatinine Clear Calc Drug Dose 72.6 ml/min Estimated GFR () 81.8 Estimated GFR (Non- 70.6 BUN/Creatinine Ratio 14.3 Random Glucose 97 mg/dl Calcium Level 8.3 mg/dl (Judie Rivera CRNP) Assessment and Plan Mr. Garcia is a 77 year old man here for increased weakness Acute Hypoxic Hypercarbic Respiratory Failure 2/2 Acute on Chronic Systolic CHF and Multifocal Pneumonia/Sepsis/E.faecalis UTI - Patient was intubated on 07/30 and respiratory acidosis improved on subsequent draws and extubated on 2/2 - Pressor support off since 08/01 - continue Zosyn and Vancomycin for now - ID on board - recommended switch to cephalexin at this point - ABGs today show hypercapnea/hypoxia - placed on bipap and given IV lasix, neb - CXR showed pulmonary congestion - NPO until hypercarbia/hypoxia improve - Daily Bumex was discontinued at [facility] - po bumex regimen has been resumed following diuresis with IV lasix SANTHOSH on CKD Stage III: - resolved - Nephrology following - appreciate recommendations - avoid nephrotoxins and maintain a slight negative fluid balance Hyperkalemia: RESOLVED - potassium was not discontinued when Bumex was discontinue at [facility] - trended down Hypokalemia - repleated and resolved CAD S/P CABG; AAA/Aortic Dissection; S/P ICD/Pacer; Acute Systolic CHF; Atrial Fibrillation: Supratherapeutic INR - Has bovine valve - INR goal 2-3 - Amiodarone 200 mg daily, Pravastatin 40 mg daily, and ASA 81 mg daily - Restart Toprol at reduced dosing of 50 mg daily and titrate back to 100 mg daily as tolerated, - Restart Ramipril if bp tolerates Toprol resumption - INR supratherapuetic likely due to interactions with other medications vs possible relation to shock/liver? -Coumadin held since 08/01 for supratherapeutic INR - therapeutic and restarted 08/04 however patient has developed hematoma over left arm - hold for now Left arm hematoma 08/01 PICC attempt - warm moist heat - monitor for expansion - Hgb higher today than yesteray, VSS - hold Coumadin for a day or two Weakness - neuro consulted - patient has history of transverse myelitis however Dr. Collins does not feel this is currently an issue. His feeling is that patient's weakness is likely an exacerbation of his existing baseline weakness due to medical condition such as UTI and hypoxia. Will likely improve as these things improve. - PT/OT CAD - no evidence of ACS - cont ASA, Statin, B xavier. 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 Dunaway who was consulted - no intervention at this time. DVT proph - Coumadin (held) Full code (Judie Rivera ., [place]) i personally examined pt and verified all vitale points w S Miguel PORTER worse breathing today started on bipap diuresed - CXR appearing CHF ABG showing hypercapnea - no wheeze, suspect from fatigue /muscle weakness from all of above vitals noted, lungs quiet at bases, no wheeze acute on chronic recurrent respiratory failure -currently bipap, diuretics, pulmonary toilet/bronchodilators -follow closely; continue aggressive care as above (Jerrod Beyer DJt.)
[2017-08-06] MEDS ORDERED: ALBUT/IPRATROP 3MG/0.5MG NEB 3 ML VIAL INH SCH (14:45)
[2017-08-06] MEDS ORDERED: FUROSEMIDE INJ 20 MG in SYRINGE 0 ML IV ONE (18:30)
[2017-08-06] MEDS: ALBUT/IPRATROP 3MG/0.5MG NEB 3 ML VIAL INH SCH (19:12)
[2017-08-06] MEDS: DOCUSATE SODIUM 100 MG CAP PO SCH (19:31)
[2017-08-06] MEDS: PRAVASTATIN SOD 40 MG TAB PO SCH (19:31)
[2017-08-07] VITALS (13 sets, daily range): BP systolic 111–140; BP diastolic 52–70; PULSE 77–86; TEMP 36.6–37; O2SAT 81–98
[2017-08-07 05:10] LABS: HEMATOCRIT 25.8 % (42-52); HEMOGLOBIN 7.7 g/dL (14.0-18.0); MEAN CELL VOLUME 88.7 fL (80-100); MEAN CORPUSCULAR HEMOGLOBIN 26.5 pg (25-34); MEAN CORPUSCULAR HGB CONC 29.8 g/dl (32-36); PLATELET COUNT 255 K/uL (130-400); RED CELL DISTRIBUTION WIDTH CV 17.6 % (11.5-14.5); RED CELL DISTRIBUTION WIDTH SD 56.9 fL (36.4-46.3); WHITE BLOOD COUNT 7.49 K/uL (4.8-10.8)
[2017-08-07 05:18] LABS: INR 2.7 (0.9-1.1)
[2017-08-07 05:46] LABS: CALCIUM 7.9 mg/dl (8.5-10.1); POTASSIUM 3.2 mmol/L (3.5-5.1)
[2017-08-07] MEDS: LEVOTHYROXINE 25 MCG TAB PO SCH (06:22)
[2017-08-07] MEDS: ALBUT/IPRATROP 3MG/0.5MG NEB 3 ML VIAL INH SCH ×4 (07:33→19:03)
[2017-08-07] MEDS ORDERED: POTASSIUM CHLORIDE 10 MEQ TABCR PO ONE ×2 (07:45→12:00)
[2017-08-07] MEDS: CEPHALEXIN MONOHYDRATE 500 MG CAP PO SCH ×4 (09:00→20:12)
[2017-08-07] MEDS: BUMETANIDE 1 MG TAB PO SCH (09:25)
[2017-08-07] MEDS: ASCORBIC ACID 500 MG TAB PO SCH (09:25)
[2017-08-07] MEDS: METOPROLOL SUCC 50MG EXT REL TAB PO SCH (09:25)
[2017-08-07] MEDS: AMIODARONE 200 MG TAB PO SCH (09:25)
[2017-08-07] MEDS: ASPIRIN 81 MG CHEW PO SCH (09:30)
[2017-08-07] MEDS ORDERED: POTASSIUM CHLORIDE 20 MEQ TABCR PO ONE (09:30)
[2017-08-07] MEDS: POLYETHYLENE (MIRALAX) 17 GM PACK PO PRN (11:20)
--- NOTE | 2017-08-07 13:28 | Hospitalist Progress Note ---
Hospitalist Progress Note Date of Service Aug 07, 2017. (Judie Rivera CRNP) Subjective Pt evaluation today including: conversation w/ patient, physical exam, chart review, lab review, review of inpatient medication list Voiding: suggs catheter in place Mr. Garcia is seated in a chair on oxymask this morning, he does feel somewhat better. Had a long discussion with him and his concerning code status. He was very conflicted about undergoing resuscitation as he feels exhausted by his illness and being in the hospital. In the end he decided that he will be a full code but does not want heroic measures or prolonged intubation. He does not want to extend his suffering if there is not meaningful chance of recovery. ROS Constitutional: no chills, aches, sweats or fever Respiratory: sob, cough, white sputum Cardiac: no chest pain, palpitations, edema, orthopnea or lightheadedness GI: no abdominal pain, nausea, vomiting, diarrhea or constipation : no dysuria or hesitancy Extremities: no joint pain or weakness Skin: no rash All other systems reviewed and negative (Judie Rivera CRNP) Medications Medications (Trade) Dose Ordered Sig/Deion Route Start Time Stop Time Status Last Admin Dose Admin Furosemide 40 mg/ Syringe 4 ml @ 4 mls/min ONE ONCE IV 08/06/17 14:00 08/06/17 14:01 DC 08/06/17 15:48 4 MLS/MIN Albuterol/ Ipratropium (Duoneb) 3 ml Q4RWA INH 08/06/17 20:00 09/05/17 19:59 08/07/17 11:22 3 ML Furosemide 20 mg/ Syringe 2 ml @ 4 mls/min 1830 ONCE IV 08/06/17 18:30 08/06/17 18:31 DC 08/06/17 19:28 4 MLS/MIN Potassium Chloride (Klor-Con M10) 20 meq 0745 ONCE PO 08/07/17 07:45 08/07/17 07:46 DC 08/07/17 09:24 20 MEQ Potassium Chloride (Klor-Con Tab) 20 meq TODAY@0930 ONCE PO 08/07/17 09:30 08/07/17 09:31 DC 08/07/17 09:24 20 MEQ (Judie Rivera CRNP) Objective Vital Signs Date Time Temp Pulse Resp B/P (MAP) Pulse Ox O2 Delivery O2 Flow Rate FiO2 08/07/17 12:00 Oxymask 5.0 08/07/17 11:45 36.6 82 30 121/62 (81) 97 Oxymask 3.0 08/07/17 11:22 81 22 95 Mask 4.0 08/07/17 08:00 BiPAP 08/07/17 07:33 83 24 81 Room Air 08/07/17 07:30 36.7 83 29 140/65 (90) 91 Diffusion Mask 3.0 08/07/17 04:00 95 Oxymask 3.0 08/07/17 03:43 36.6 77 18 122/69 (86) 95 Oxymask 3.0 08/07/17 00:00 BiPAP 40 08/06/17 23:44 36.4 73 18 125/58 (80) 97 BiPAP 40 08/06/17 22:34 82 98 40 08/06/17 20:10 BiPAP 08/06/17 19:30 36.9 79 20 141/57 (85) 94 BiPAP 08/06/17 19:13 80 97 40 08/06/17 19:12 86 26 97 BiPAP/CPAP 40 08/06/17 16:10 98 BiPAP 08/06/17 15:45 36.8 80 20 117/53 (74) 98 BiPAP 08/06/17 14:11 80 98 40 (Judie Rivera CRNP) Physical Exam Notes: General: no distress Eyes: normal inspection, PERLL Respiratory: chest non tender, diminished breath sounds in the bases to auscultation, no respiratory distress, no accessory muscle use Cardiac: regular rate and rhythm, no rub or gallop, systolic murmur, no edema, no jvd GI/: active bowel sounds, no abd pain or tenderness, soft, non distended Extremities: normal range of motion, normal strength, non tender Neuro/Psych: alert and oriented x 3, normal mood and affect Skin: normal color, dry (Judie Rivera CRNP) Laboratory Results Last 24 Hours Test 08/06/17 15:26 08/06/17 17:41 08/07/17 04:34 08/07/17 09:25 Arterial Blood pH 7.30 7.37 Arterial Blood Partial Pressure CO2 70 mmHg 61 mmHg Arterial Blood Partial Pressure O2 98 mm/Hg 85 mm/Hg Arterial Blood HCO3 33 mmol/L 34 mmol/L Arterial Blood Oxygen Saturation 94.9 % 94.1 % Arterial Blood Base Excess 6.1 mEq/L 7.8 mEq/L Arterial Blood Gas Delivery 40% 40% Elio Test POS POS White Blood Count 7.49 K/uL Red Blood Count 2.91 M/uL Hemoglobin 7.7 g/dL Hematocrit 25.8 % Mean Corpuscular Volume 88.7 fL Mean Corpuscular Hemoglobin 26.5 pg Mean Corpuscular Hemoglobin Concent 29.8 g/dl RDW Standard Deviation 56.9 fL RDW Coefficient of Variation 17.6 % Platelet Count 255 K/uL Mean Platelet Volume 10.0 fL Prothrombin Time 27.6 SECONDS Prothromb Time International Ratio 2.7 Sodium Level 139 mmol/L Potassium Level 3.2 mmol/L Chloride Level 100 mmol/L Carbon Dioxide Level 33 mmol/L Anion Gap 6.0 mmol/L Blood Urea Nitrogen 16 mg/dl Creatinine 1.00 mg/dl Est Creatinine Clear Calc Drug Dose 74.0 ml/min Estimated GFR () 83.8 Estimated GFR (Non- 72.3 BUN/Creatinine Ratio 15.8 Random Glucose 73 mg/dl Calcium Level 7.9 mg/dl Ammonia 52.9 umol/L (Judie Rivera ., [place]) Assessment and Plan Mr. Garcia is a 77 year old man here for increased weakness Acute Hypoxic Hypercarbic Respiratory Failure 2/2 Acute on Chronic Systolic CHF and Multifocal Pneumonia/Sepsis/E.faecalis UTI - Patient was intubated on 07/30 and respiratory acidosis improved on subsequent draws and extubated on 08/01 - Pressor support off since 08/01 - Zosyn and Vancomycin discontinued - ID on board - switched to cephalexin at this point - ABGs 08/06 showed hypercapnea/hypoxia - placed on bipap and given IV lasix, nebs - CXR showed pulmonary congestion - put out almost 4L and oxygenation improved today - should continue with bipap while sleeping - Daily Bumex was discontinued at [facility] - po bumex regimen has been resumed SANTHOSH on CKD Stage III: - resolved - Nephrology following - appreciate recommendations - avoid nephrotoxins and maintain a slight negative fluid balance Hyperkalemia: RESOLVED - potassium was not discontinued when Bumex was discontinue at [facility] - trended down Hypokalemia - repleated and resolved CAD S/P CABG; AAA/Aortic Dissection; S/P ICD/Pacer; Acute Systolic CHF; Atrial Fibrillation: Supratherapeutic INR - Has bovine valve - INR goal 2-3 - Amiodarone 200 mg daily, Pravastatin 40 mg daily, and ASA 81 mg daily - Restart Toprol at reduced dosing of 50 mg daily and titrate back to 100 mg daily as tolerated, - Restarted ramipril as patient's bp tolerating Toprol - INR supratherapuetic likely due to interactions with other medications vs possible relation to shock/liver? -Coumadin held / for supratherapeutic INR - therapeutic and restarted 08/04 however patient has developed hematoma over left arm so Coumadin was held, at this point INR remains therapeutic, will hold Coumadin again today and check INR tomorrow Left arm hematoma 2/ PICC attempt - warm moist heat - monitor for expansion - slight drop in hgb today but hematoma appears stable - continue to monitor. - hold Coumadin for a day or two Weakness - neuro consulted - patient has history of transverse myelitis however Dr. Collins does not feel this is currently an issue. His feeling is that patient's weakness is likely an exacerbation of his existing baseline weakness due to medical condition such as UTI and hypoxia. Will likely improve as these things improve. - PT/OT CAD - no evidence of ACS - cont ASA, Statin, B xavier. 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 Dunaway who was consulted - no intervention at this time. DVT proph - Coumadin (held) Full code (Judie Rivera ., [place]) i personally exmained pt and verified all vitale points w Judith PORTER feeling better wtih breathing -- not great yet but better. really wants bipap off good UO w rosalinda mckeon noted nad breathing unlabored no pallor or icterus acute recurrent hypoxic and hypercapnic respiratory failure - related to pulmonary edema and respiratory muscle fatigue -contniue supportive care, diuresed well. wean O2 and bipap as possible although still likely needs bipap to sleep (Jerrod Beyer, D.O.)
[2017-08-07] MEDS: DOCUSATE SODIUM 100 MG CAP PO SCH (20:12)
[2017-08-07] MEDS: PRAVASTATIN SOD 40 MG TAB PO SCH (20:12)
[2017-08-08] VITALS (13 sets, daily range): BP systolic 105–130; BP diastolic 55–63; PULSE 76–87; TEMP 36.9–37.1; O2SAT 91–100
[2017-08-08 04:37] LABS: HEMATOCRIT 25.3 % (42-52); HEMOGLOBIN 7.6 g/dL (14.0-18.0); MEAN CELL VOLUME 88.5 fL (80-100); MEAN CORPUSCULAR HEMOGLOBIN 26.6 pg (25-34); MEAN PLATELET VOLUME 9.5 fL (7.4-10.4); PLATELET COUNT 245 K/uL (130-400); RED CELL DISTRIBUTION WIDTH SD 57.7 fL (36.4-46.3); WHITE BLOOD COUNT 6.55 K/uL (4.8-10.8)
[2017-08-08 04:53] LABS: INR 2.3 (0.9-1.1)
[2017-08-08 04:55] LABS: CREATININE 1.02 mg/dl (0.60-1.40); POTASSIUM 3.6 mmol/L (3.5-5.1)
[2017-08-08] MEDS: LEVOTHYROXINE 25 MCG TAB PO SCH (06:03)
[2017-08-08] MEDS: ALBUT/IPRATROP 3MG/0.5MG NEB 3 ML VIAL INH SCH ×4 (07:09→19:13)
[2017-08-08] MEDS: ASCORBIC ACID 500 MG TAB PO SCH (09:21)
[2017-08-08] MEDS: ASPIRIN 81 MG CHEW PO SCH (09:21)
[2017-08-08] MEDS: ENALAPRIL MALEATE 10 MG TAB PO SCH (09:22)
[2017-08-08] MEDS: CEPHALEXIN MONOHYDRATE 500 MG CAP PO SCH ×4 (09:22→21:47)
[2017-08-08] MEDS: BUMETANIDE 1 MG TAB PO SCH (09:22)
[2017-08-08] MEDS: METOPROLOL SUCC 50MG EXT REL TAB PO SCH (10:32)
[2017-08-08] MEDS: AMIODARONE 200 MG TAB PO SCH (10:32)
[2017-08-08] MEDS ORDERED: BISACODYL 10 MG SUPP PR STA (12:16)
[2017-08-08] MEDS ORDERED: POLYETHYLENE (MIRALAX) 17 GM PACK PO ONE (12:30)
--- NOTE | 2017-08-08 14:49 | Hospitalist Progress Note ---
Hospitalist Progress Note Date of Service Aug 08, 2017. (Judie Rivera .[place]) Subjective Pt evaluation today including: conversation w/ patient, physical exam, chart review, lab review, review of inpatient medication list Voiding: suggs catheter in place Mr. Garcia feels better than he did yesterday, he has no complaints. ROS Constitutional: no chills, aches, sweats or fever Respiratory: no sob,cough, sputum, or wheezing Cardiac: no chest pain, palpitations, edema, orthopnea or lightheadedness GI: no abdominal pain, nausea, vomiting, diarrhea or constipation : no dysuria or hesitancy Extremities: no joint pain or weakness Skin: no rash All other systems reviewed and negative (Judie Rivera CRNP) Medications Medications Administered Medications (Trade) Dose Ordered Sig/Deion Route Start Time Stop Time Status Last Admin Dose Admin Sodium Chloride 1,000 ml @ 999 mls/hr Q1H1M STAT IV 07/28/17 19:54 07/28/17 20:54 DC 07/28/17 19:54 999 MLS/HR Cefepime HCl 1000 mg/Dextrose 111 ml @ 200 mls/hr NOW STAT IV 07/28/17 21:20 07/28/17 21:53 DC 07/28/17 21:52 200 MLS/HR Levofloxacin (Levaquin / D5W) 750 mg NOW STAT IV 07/28/17 21:20 07/28/17 21:22 DC 07/28/17 22:13 750 MG Amiodarone HCl (Cordarone Tab) 200 mg QAM PO 07/29/17 09:00 08/28/17 08:59 08/08/17 10:32 200 MG Ascorbic Acid (Vitamin C Tab) 500 mg QAM PO 07/29/17 09:00 08/28/17 08:59 08/08/17 09:21 500 MG Aspirin (Ecotrin Tab) 81 mg QAM PO 07/29/17 09:00 07/30/17 09:26 DC 07/30/17 09:12 81 MG Docusate Sodium (coLACE CAP) 100 mg QPM PO 07/29/17 21:00 07/30/17 21:28 DC 07/29/17 22:13 100 MG Famotidine (Pepcid Tab) 20 mg QAM PO 07/29/17 09:00 07/30/17 09:23 DC 07/30/17 09:13 20 MG Levothyroxine Sodium (Synthroid Tab) 25 mcg DAILYBB PO 07/29/17 06:30 08/28/17 06:59 08/08/17 06:03 25 MCG Metoprolol Succinate (Toprol Xl Tab) 100 mg QAM PO 07/29/17 09:00 07/29/17 19:00 DC 07/29/17 08:17 100 MG Pravastatin Sodium (Pravachol Tab) 40 mg HS PO 07/29/17 21:00 08/28/17 20:59 08/07/17 20:12 40 MG Warfarin Sodium (Coumadin Tab) 5 mg DAILY@16 PO 07/29/17 16:00 08/08/17 13:53 DC 08/04/17 16:28 5 MG Enalapril Maleate (Vasotec Tab) 20 mg QAM PO 07/29/17 09:00 07/29/17 19:00 DC 07/29/17 08:16 20 MG Acetaminophen (Tylenol Tab) 650 mg Q4H PRN PO 07/28/17 22:00 08/27/17 21:59 07/30/17 03:11 650 MG Polyethylene (Miralax Powder Packet) 17 gm DAILY PRN PO 07/28/17 22:00 08/27/17 21:59 08/07/17 11:20 17 GM Furosemide 40 mg/ Syringe 4 ml @ 4 mls/min ONE ONCE IV 07/29/17 03:15 07/29/17 03:16 DC 07/29/17 04:32 4 MLS/MIN Ceftriaxone Sodium 1 gm/ Dextrose 50 ml @ 100 mls/hr Q24H IV 07/29/17 08:00 07/29/17 15:57 DC 07/29/17 08:15 100 MLS/HR Albuterol/ Ipratropium (Duoneb) 3 ml QIDR INH 07/29/17 08:00 07/30/17 18:05 DC 07/29/17 16:25 3 ML Furosemide 40 mg/ Syringe 4 ml @ 4 mls/min 1530 ONCE IV 07/29/17 15:30 07/29/17 15:31 DC 07/29/17 15:33 4 MLS/MIN Piperacillin Sod/ Tazobactam Sod 3.375 gm/Dextrose 115 ml @ 28.75 mls/ hr Q8H IV 07/29/17 22:00 08/06/17 11:16 DC 08/06/17 05:28 28.75 MLS/HR Piperacillin Sod/ Tazobactam Sod 4.5 gm/Dextrose 120 ml @ 200 mls/hr NOW STAT IV 07/29/17 16:11 07/29/17 16:46 DC 07/29/17 16:11 200 MLS/HR Vancomycin HCl 2500 mg/Sodium Chloride 550 ml @ 200 mls/hr NOW STAT IV 07/29/17 16:12 07/29/17 18:56 DC 07/29/17 16:53 200 MLS/HR Vancomycin HCl 1500 mg/Sodium Chloride 530 ml @ 200 mls/hr Q12H IV 07/30/17 02:00 07/30/17 12:41 DC 07/30/17 01:17 200 MLS/HR Sodium Chloride 500 ml @ 999 mls/hr NOW STAT IV 07/29/17 19:43 07/29/17 20:13 DC 07/29/17 20:00 999 MLS/HR Dopamine HCl/ Dextrose (DOPamine 400MG / D5W) 400 mg STK-MED ONCE .ROUTE 07/29/17 20:27 07/29/17 20:28 DC 07/29/17 20:34 400 MG Dobutamine HCl 0 ml @ 0 mls/hr Q0M PRN IV 07/30/17 00:08 08/02/17 07:07 DC 07/31/17 22:30 30.7 MLS/HR Norepinephrine Bitartrate 8 mg/ Dextrose 508 ml @ 0 mls/hr Q0M PRN IV 07/30/17 05:05 08/02/17 06:55 DC 07/30/17 17:55 24 MLS/HR Sodium Bicarbonate (Sodium Bicarbonate 8.4% Inj) 150 ml NOW STAT IV 07/30/17 06:19 07/30/17 06:22 DC 07/30/17 06:27 150 ML Miscellaneous (Rapid Sequence Induction Bag) 1 ea STK-MED ONCE N/A 07/30/17 06:21 07/30/17 06:22 DC 07/30/17 06:50 1 EA Furosemide (Lasix Inj) 40 mg STK-MED ONCE .ROUTE 07/30/17 06:45 07/30/17 06:46 DC 07/30/17 06:49 40 MG Furosemide (Lasix Inj) 40 mg STK-MED ONCE .ROUTE 07/30/17 06:45 07/30/17 06:46 DC 07/30/17 06:50 40 MG Midazolam HCl (Versed Inj) 2 mg Q2H PRN IV 07/30/17 08:45 08/02/17 07:07 DC 07/30/17 11:34 2 MG Fentanyl Citrate (Fentanyl Inj) 100 mcg Q2H PRN IV 07/30/17 08:45 08/02/17 07:07 DC 07/30/17 13:55 100 MCG Vasopressin 50 units/Sodium Chloride 502.5 ml @ 24 mls/hr [id number] IV 07/30/17 08:45 08/02/17 06:55 DC 07/31/17 05:46 24 MLS/HR Magnesium Sulfate 1 gm/Prmx 100 ml @ 100 mls/hr Q1H IV 07/30/17 09:00 07/30/17 10:59 DC 07/30/17 10:18 100 MLS/HR Pantoprazole Sodium 40 mg/ Syringe 10 ml @ 5 mls/min DAILY@11 IV 07/30/17 11:00 08/02/17 06:55 DC 08/01/17 10:52 5 MLS/MIN Aspirin (Aspirin Chew) 81 mg QAM PO 07/31/17 09:00 08/30/17 08:59 08/08/17 09:21 81 MG Furosemide 80 mg/ Syringe 8 ml @ 4 mls/min NOW ONCE IV 07/30/17 18:30 07/30/17 18:31 DC 07/30/17 19:20 4 MLS/MIN Docusate Sodium (coLACE SYRUP) 100 mg QPM PO 07/30/17 21:30 08/02/17 02:13 DC 08/01/17 20:57 100 MG Vancomycin HCl 1750 mg/Sodium Chloride 535 ml @ 200 mls/hr Q24H IV 07/31/17 07:15 07/31/17 15:18 DC 07/31/17 07:47 200 MLS/HR Furosemide 40 mg/ Syringe 4 ml @ 4 mls/min ONE ONCE IV 07/31/17 08:45 07/31/17 08:46 DC 07/31/17 09:08 4 MLS/MIN Potassium Phosphate 21 mmol/ Sodium Chloride 507 ml @ 144.857 mls/hr ONE ONCE IV 07/31/17 08:45 07/31/17 12:14 DC 07/31/17 09:07 144.857 MLS/HR Potassium Chloride 20 meq/ Prmx 100 ml @ 50 mls/hr Q2H IV 07/31/17 09:30 07/31/17 13:29 DC 07/31/17 11:35 50 MLS/HR Vancomycin HCl 1500 mg/Sodium Chloride 530 ml @ 200 mls/hr Q24H IV 08/01/17 01:00 08/01/17 10:14 DC 08/01/17 01:18 200 MLS/HR Potassium Chloride 20 meq/ Prmx 100 ml @ 50 mls/hr Q2H IV 08/01/17 09:30 08/01/17 15:29 DC 08/01/17 13:33 50 MLS/HR Furosemide 30 mg/ Syringe 3 ml @ 4 mls/min BID IV 08/01/17 09:00 08/01/17 18:40 DC 08/01/17 09:33 4 MLS/MIN Vancomycin HCl 1500 mg/Sodium Chloride 530 ml @ 200 mls/hr Q18H IV 08/01/17 19:00 08/04/17 06:46 DC 08/03/17 06:14 200 MLS/HR Potassium/ Phosphorus/Sodium (Phospha 250 Neutral 155-852-130 Mg) 1 tab Q4H PO 08/02/17 02:00 08/02/17 10:01 DC 08/02/17 09:43 1 TAB Potassium Chloride (Klor-Con M10) 20 meq Q4H PO 08/02/17 02:00 08/02/17 10:01 DC 08/02/17 07:35 20 MEQ Docusate Sodium (coLACE CAP) 100 mg QPM PO 08/02/17 21:00 09/01/17 20:59 08/07/17 20:12 100 MG Bumetanide (Bumex Tab) 1 mg QAM PO 08/02/17 09:00 09/01/17 08:59 08/08/17 09:22 1 MG Acetazolamide Sodium 500 mg/ Syringe 5 ml @ 5 mls/min BID IV 08/02/17 09:00 08/02/17 21:00 DC 08/02/17 21:32 5 MLS/MIN Heparin Sodium (Porcine) (Heparin 10 Unit/ ml 5 ml Flush) 5 ml PRN PRN FLUSH 08/02/17 18:15 09/01/17 18:14 08/08/17 09:59 5 ML Vancomycin HCl 1500 mg/Sodium Chloride 530 ml @ 200 mls/hr Q24H IV 08/04/17 09:00 08/06/17 11:17 DC 08/06/17 08:32 200 MLS/HR Metoprolol Succinate (Toprol Xl Tab) 50 mg QAM PO 08/05/17 09:00 09/04/17 08:59 08/08/17 10:32 50 MG Metoprolol Succinate (Toprol Xl Tab) 50 mg 1100 ONCE PO 08/04/17 11:00 08/04/17 11:01 DC 08/04/17 11:21 50 MG Furosemide 40 mg/ Syringe 4 ml @ 4 mls/min NOW ONCE IV 08/06/17 09:30 08/06/17 09:31 DC 08/06/17 09:59 4 MLS/MIN Albuterol/ Ipratropium (Duoneb) 3 ml ONE STAT INH 08/06/17 09:04 08/06/17 09:07 DC 08/06/17 09:25 3 ML Cephalexin Monohydrate (Keflex Cap) 500 mg QID PO 08/06/17 13:00 08/08/17 23:59 08/08/17 13:23 500 MG Furosemide 40 mg/ Syringe 4 ml @ 4 mls/min ONE ONCE IV 08/06/17 14:00 08/06/17 14:01 DC 08/06/17 15:48 4 MLS/MIN Albuterol/ Ipratropium (Duoneb) 3 ml Q4RWA INH 08/06/17 20:00 09/05/17 19:59 08/08/17 11:07 3 ML Furosemide 20 mg/ Syringe 2 ml @ 4 mls/min 1830 ONCE IV 08/06/17 18:30 08/06/17 18:31 DC 08/06/17 19:28 4 MLS/MIN Potassium Chloride (Klor-Con M10) 20 meq 0745 ONCE PO 08/07/17 07:45 08/07/17 07:46 DC 08/07/17 09:24 20 MEQ Potassium Chloride (Klor-Con Tab) 20 meq TODAY@0930 ONCE PO 08/07/17 09:30 08/07/17 09:31 DC 08/07/17 09:24 20 MEQ Potassium Chloride (Klor-Con M10) 10 meq TODAY@1200 ONCE PO 08/07/17 12:00 08/07/17 12:01 DC 08/07/17 12:00 10 MEQ Enalapril Maleate (Vasotec Tab) 20 mg QAM PO 08/08/17 09:00 09/07/17 08:59 08/08/17 09:22 20 MG Polyethylene (Miralax Powder Packet) 17 gm NOW ONCE PO 08/08/17 12:30 08/08/17 12:31 DC 08/08/17 13:23 17 GM Bisacodyl (Dulcolax Supp) 10 mg NOW STAT [place] 08/08/17 12:16 08/08/17 12:20 DC 08/08/17 14:02 10 MG (Judie Rivera, MANAGER PROGRAM) Objective Vital Signs Date Time Temp Pulse Resp B/P (MAP) Pulse Ox O2 Delivery O2 Flow Rate FiO2 08/08/17 12:00 Oxymask 4.0 BiPAP 08/08/17 11:19 37.1 79 26 130/63 (85) 97 Nasal Cannula 4.0 CPAP 08/08/17 11:07 78 20 97 Mask 4.0 08/08/17 08:00 Oxymask 4.0 BiPAP 08/08/17 07:29 37.1 82 29 125/58 (80) 100 Diffusion Mask 4.0 08/08/17 07:09 81 24 95 Mask 4.0 08/08/17 05:35 76 95 30 08/08/17 04:15 98 Oxymask 5.0 BiPAP 08/08/17 04:05 37.1 80 18 117/55 (75) 95 BiPAP 08/08/17 02:08 79 97 40 08/08/17 00:25 98 Oxymask 5.0 BiPAP 08/07/17 23:40 36.8 81 20 111/70 (84) 98 BiPAP 08/07/17 22:20 82 96 40 08/07/17 20:15 98 Oxymask 5.0 08/07/17 20:01 37.0 86 18 131/52 (78) 96 Oxymask 4.0 08/07/17 19:05 83 24 98 Mask 5.0 08/07/17 16:00 Oxymask 5.0 08/07/17 15:50 37.0 85 20 134/58 (83) 97 Oxymask 5.0 08/07/17 14:55 80 22 95 Mask 4.0 (Judie Rivera CRNP) Physical Exam Notes: General: no distress Eyes: normal inspection, PERLL Respiratory: chest non tender, clear to auscultation, normal breath sounds, no respiratory distress, no accessory muscle use Cardiac: regular rate and rhythm, no rub or gallop, systolic murmur, no edema, no jvd GI/: active bowel sounds, no abd pain or tenderness, soft, non distended Extremities: normal range of motion, normal strength, non tender Neuro/Psych: alert and oriented x 3, normal mood and affect Skin: normal color, dry (Judie Rivera CRNP) Laboratory Results Last 24 Hours Test 08/08/17 04:17 White Blood Count 6.55 K/uL Red Blood Count 2.86 M/uL Hemoglobin 7.6 g/dL Hematocrit 25.3 % Mean Corpuscular Volume 88.5 fL Mean Corpuscular Hemoglobin 26.6 pg Mean Corpuscular Hemoglobin Concent 30.0 g/dl RDW Standard Deviation 57.7 fL RDW Coefficient of Variation 18.0 % Platelet Count 245 K/uL Mean Platelet Volume 9.5 fL Prothrombin Time 23.3 SECONDS Prothromb Time International Ratio 2.3 Sodium Level 139 mmol/L Potassium Level 3.6 mmol/L Chloride Level 101 mmol/L Carbon Dioxide Level 35 mmol/L Anion Gap 3.0 mmol/L Blood Urea Nitrogen 17 mg/dl Creatinine 1.02 mg/dl Est Creatinine Clear Calc Drug Dose 66.6 ml/min Estimated GFR () 81.8 Estimated GFR (Non- 70.6 BUN/Creatinine Ratio 16.4 Random Glucose 88 mg/dl Calcium Level 8.0 mg/dl (Judie Rivera CRNP) Assessment and Plan Mr. Garcia is a 77 year old man here for increased weakness Acute Hypoxic Hypercarbic Respiratory Failure / Acute on Chronic Systolic CHF and Multifocal Pneumonia/Sepsis/E.faecalis UTI - Patient was intubated on 07/30 and respiratory acidosis improved on subsequent draws and extubated on 08/01 - Pressor support off since 08/01 - Zosyn and Vancomycin discontinued - ID on board - switched to cephalexin at this point - ABGs 08/06 showed hypercapnea/hypoxia - placed on bipap and given IV lasix, nebs - CXR showed pulmonary congestion - put out almost 4L and oxygenation improved - should continue with bipap while sleeping - Daily Bumex was discontinued at [facility] - po bumex regimen has been resumed Anemia - likely anemia of chronic disease as there is no apparent bleeding and MCV is normocytic. INR has been therapeutic since 08/04 - Iron panel, cbc for am - Fecal occult ordered however patient has been constipated so would not suspect it will be positive - Transfuse if hgb drops below 7 or patient becomes symptomatic SANTHOSH on CKD Stage III: - resolved - Nephrology following - appreciate recommendations - avoid nephrotoxins and maintain a slight negative fluid balance Hyperkalemia: RESOLVED - potassium was not discontinued when Bumex was discontinue at [facility] - trended down Hypokalemia - repleated and resolved CAD S/P CABG; AAA/Aortic Dissection; S/P ICD/Pacer; Acute Systolic CHF; Atrial Fibrillation: Supratherapeutic INR - Has bovine valve - INR goal 2-3 - Amiodarone 200 mg daily, Pravastatin 40 mg daily, and ASA 81 mg daily - Restart Toprol at reduced dosing of 50 mg daily and titrate back to 100 mg daily as tolerated, - Restarted ramipril as patient's bp tolerating Toprol - INR supratherapuetic likely due to interactions with other medications vs possible relation to shock/liver? -Coumadin held 08/01 for supratherapeutic INR - INR therapeutic since 08/04 without any coumadin given - restarted 08/08 at reduced dose - check INR am Left arm hematoma 08/01 PICC attempt - warm moist heat, elevation - ecchymosis improved today though arm still edematous Weakness - neuro consulted - patient has history of transverse myelitis however Dr. Collins does not feel this is currently an issue. His feeling is that patient's weakness is likely an exacerbation of his existing baseline weakness due to medical condition such as UTI and hypoxia. Will likely improve as these things improve. - PT/OT CAD - no evidence of ACS - cont ASA, Statin, B xavier. 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 Dunaway who was consulted - no intervention at this time. DVT proph - Coumadin Full code (Judie Rivera ., [place]) DIRECTOR OF ROOMS Physician Supervision Note: I interviewed and examined the patient. Discussed with Judie Rivera DIRECTOR OF ROOMS and agree with findings and plan as documented in the note. Any exceptions or clarifications are listed here: None this pt is feeling improved stating his breathing is much better, still fairly anemic vitals 37.1 82 29 125/58 this pt is hard of hearing and is slightly hypoxic on exam. he has no obvious signs of bleeding car is regular lungs are clear although bases are diminshed Mr. Garcia is a 77 year old man here for increased weakness, acute on chronic anemia and acute respiratory failure with hypoxia and acute systolic heart failure Acute Hypoxic Hypercarbic Respiratory Failure 08/01 Acute on Chronic Systolic CHF and Multifocal Pneumonia/Sepsis/E.faecalis UTI poa - Patient was intubated on 07/30 and respiratory acidosis improved and was extubated on 08/01 - Pressor support off since 08/01 - Zosyn and Vancomycin initially now on cephalexin - ABGs 08/06 showed hypercapnia/hypoxia - placed on bipap and given IV lasix, nebs - CXR showed pulmonary congestion - put out almost 4L and oxygenation improved - should continue with bipap while sleeping and Daily Bumex Anemia has a history of anemia of chronic disease and continues with no apparent bleeding and MCV is normocytic. INR has been therapeutic since 08/04 - Iron panel, pending SANTHOSH on CKD Stage III: resolved- avoid nephrotoxins and maintain a slight negative fluid balance Hyperkalemia: RESOLVED Hypokalemia concern continues while on diuretics, - repeated and resolved CAD S/P CABG; AAA/Aortic Dissection; S/P ICD/Pacer; Acute Systolic CHF; Atrial Fibrillation: - follow INR - Amiodarone 200 mg daily, Pravastatin 40 mg daily, and ASA 81 mg daily - Restart Toprol at reduced dosing of 50 mg daily and titrate back to 100 mg daily as tolerated, - Restarted ramipril as patient's bp tolerating Toprol Left arm hematoma 2/2 PICC attempt, slowly improving Weakness - neuro consulted does not feel is transverse myelitis CAD - no evidence of ACS - cont ASA, Statin, B xavier. AAA dissection on CT - was evaluated in the past by Dr. Dunaway who was consulted - no intervention at this time. DVT proph - Coumadin Full code Documented By: Vijay Stack (Vijay Stack M.D.)
--- NOTE | 2017-08-08 15:07 | Infectious Disease Progress Nt ---
Progress Note Date of Service Aug 08, 2017. Subjective Pt evaluation today including: conversation w/ patient, physical exam, chart review, lab review, review of studies, conversation w/ java developer consultant, review of inpatient medication list Patient feeling better today. No increasing cough or shortness of breath. Remains afebrile. Now on cephalexin and tolerating without apparent difficulty. All Other Systems: Reviewed and Negative Medications Current Inpatient Medications Medications (Trade) Dose Ordered Sig/Deion Route Start Time Stop Time Status Last Admin Dose Admin Amiodarone HCl (Cordarone Tab) 200 mg QAM PO 07/29/17 09:00 08/28/17 08:59 08/08/17 10:32 200 MG Ascorbic Acid (Vitamin C Tab) 500 mg QAM PO 07/29/17 09:00 08/28/17 08:59 08/08/17 09:21 500 MG Levothyroxine Sodium (Synthroid Tab) 25 mcg DAILYBB PO 07/29/17 06:30 08/28/17 06:59 08/08/17 06:03 25 MCG Pravastatin Sodium (Pravachol Tab) 40 mg HS PO 07/29/17 21:00 08/28/17 20:59 08/07/17 20:12 40 MG Acetaminophen (Tylenol Tab) 650 mg Q4H PRN PO 07/28/17 22:00 08/27/17 21:59 07/30/17 03:11 650 MG Al Hydrox/Mg Hydrox/Simethicone (Maalox Max Susp) 15 ml Q4H PRN PO 07/28/17 22:00 08/27/17 21:59 Magnesium Hydroxide (Milk Of Magnesia Susp) 30 ml Q6H PRN PO 07/28/17 22:00 08/27/17 21:59 Polyethylene (Miralax Powder Packet) 17 gm DAILY PRN PO 07/28/17 22:00 08/27/17 21:59 08/07/17 11:20 17 GM Miscellaneous (Iv Fluids Completed) 1 ea PRN PRN N/A 07/29/17 02:30 07/29/18 02:29 Aspirin (Aspirin Chew) 81 mg QAM PO 07/31/17 09:00 08/30/17 08:59 08/08/17 09:21 81 MG Docusate Sodium (coLACE CAP) 100 mg QPM PO 08/02/17 21:00 09/01/17 20:59 08/07/17 20:12 100 MG Bumetanide (Bumex Tab) 1 mg QAM PO 08/02/17 09:00 09/01/17 08:59 08/08/17 09:22 1 MG Heparin Sodium (Porcine) (Heparin 10 Unit/ ml 5 ml Flush) 5 ml PRN PRN FLUSH 08/02/17 18:15 09/01/17 18:14 08/08/17 09:59 5 ML Metoprolol Succinate (Toprol Xl Tab) 50 mg QAM PO 08/05/17 09:00 09/04/17 08:59 08/08/17 10:32 50 MG Cephalexin Monohydrate (Keflex Cap) 500 mg QID PO 08/06/17 13:00 08/08/17 23:59 08/08/17 13:23 500 MG Albuterol/ Ipratropium (Duoneb) 3 ml Q4RWA INH 08/06/17 20:00 09/05/17 19:59 08/08/17 11:07 3 ML Enalapril Maleate (Vasotec Tab) 20 mg QAM PO 08/08/17 09:00 09/07/17 08:59 08/08/17 09:22 20 MG Warfarin Sodium (Coumadin Tab) 3 mg DAILY@16 PO 08/08/17 16:00 09/07/17 15:59 Objective Vital Signs Date Time Temp Pulse Resp B/P (MAP) Pulse Ox O2 Delivery O2 Flow Rate FiO2 08/08/17 12:00 Oxymask 4.0 BiPAP 08/08/17 11:19 37.1 79 26 130/63 (85) 97 Nasal Cannula 4.0 CPAP 08/08/17 11:07 78 20 97 Mask 4.0 08/08/17 08:00 Oxymask 4.0 BiPAP 08/08/17 07:29 37.1 82 29 125/58 (80) 100 Diffusion Mask 4.0 08/08/17 07:09 81 24 95 Mask 4.0 08/08/17 05:35 76 95 30 08/08/17 04:15 98 Oxymask 5.0 BiPAP 08/08/17 04:05 37.1 80 18 117/55 (75) 95 BiPAP 08/08/17 02:08 79 97 40 08/08/17 00:25 98 Oxymask 5.0 BiPAP 08/07/17 23:40 36.8 81 20 111/70 (84) 98 BiPAP 08/07/17 22:20 82 96 40 08/07/17 20:15 98 Oxymask 5.0 08/07/17 20:01 37.0 86 18 131/52 (78) 96 Oxymask 4.0 08/07/17 19:05 83 24 98 Mask 5.0 08/07/17 16:00 Oxymask 5.0 08/07/17 15:50 37.0 85 20 134/58 (83) 97 Oxymask 5.0 Physical Exam General Appearance: WD/WN, no apparent distress Eyes: normal inspection, EOMI, sclerae normal ENT: normal ENT inspection, pharynx normal Neck: supple, no adenopathy, thyroid normal, trachea midline Respiratory/Chest: chest non-tender, lungs clear, normal breath sounds, no respiratory distress Cardiovascular: regular rate, rhythm, no gallop, no murmur Abdomen: normal bowel sounds, non tender, soft, no organomegaly Extremities: non-tender, no calf tenderness Neurologic/Psychiatric: alert, oriented x 3 Skin: normal color, no rash, + pertinent finding (Buttock wound improving) Laboratory Results Last 24 Hours Test 08/08/17 04:17 White Blood Count 6.55 K/uL Red Blood Count 2.86 M/uL Hemoglobin 7.6 g/dL Hematocrit 25.3 % Mean Corpuscular Volume 88.5 fL Mean Corpuscular Hemoglobin 26.6 pg Mean Corpuscular Hemoglobin Concent 30.0 g/dl RDW Standard Deviation 57.7 fL RDW Coefficient of Variation 18.0 % Platelet Count 245 K/uL Mean Platelet Volume 9.5 fL Prothrombin Time 23.3 SECONDS Prothromb Time International Ratio 2.3 Sodium Level 139 mmol/L Potassium Level 3.6 mmol/L Chloride Level 101 mmol/L Carbon Dioxide Level 35 mmol/L Anion Gap 3.0 mmol/L Blood Urea Nitrogen 17 mg/dl Creatinine 1.02 mg/dl Est Creatinine Clear Calc Drug Dose 66.6 ml/min Estimated GFR () 81.8 Estimated GFR (Non- 70.6 BUN/Creatinine Ratio 16.4 Random Glucose 88 mg/dl Calcium Level 8.0 mg/dl Assessment and Plan (1) Hypotension (2) Pleural effusion Status: Acute (3) Hypoxia Status: Acute (4) Acute respiratory failure with hypoxia and hypercapnia Status: Acute (5) Hyperkalemia 77-year-old male with multiple medical comorbidities status post recent left hip surgery, now presents with acute respiratory failure requiring intubation but now extubated, with urinalysis suggestive of infection, as well as gluteal decubitus with positive culture for methicillin sensitive Staph aureus. Has completed planned 7 days of IV therapy, and now to continue on cephalexin for his buttock ulcer, likely for several weeks. Would like [facility] once discharged.
[2017-08-08] MEDS: WARFARIN SOD 3 MG TAB PO SCH (17:57)
[2017-08-08] MEDS: DOCUSATE SODIUM 100 MG CAP PO SCH (20:32)
[2017-08-08] MEDS: PRAVASTATIN SOD 40 MG TAB PO SCH (20:32)
[2017-08-09] VITALS (11 sets, daily range): BP systolic 92–128; BP diastolic 47–60; PULSE 80–96; TEMP 36.6–37.2; O2SAT 91–98
[2017-08-09] MEDS: LEVOTHYROXINE 25 MCG TAB PO SCH (05:47)
[2017-08-09 06:10] LABS: HEMATOCRIT 26.1 % (42-52); HEMOGLOBIN 7.6 g/dL (14.0-18.0); MEAN CELL VOLUME 89.4 fL (80-100); MEAN CORPUSCULAR HGB CONC 29.1 g/dl (32-36); MEAN PLATELET VOLUME 10.7 fL (7.4-10.4); PLATELET COUNT 245 K/uL (130-400); RED CELL DISTRIBUTION WIDTH CV 18.1 % (11.5-14.5); WHITE BLOOD COUNT 6.63 K/uL (4.8-10.8)
[2017-08-09 06:51] LABS: CREATININE 0.99 mg/dl (0.60-1.40); POTASSIUM 3.7 mmol/L (3.5-5.1)
[2017-08-09] MEDS: ALBUT/IPRATROP 3MG/0.5MG NEB 3 ML VIAL INH SCH ×4 (07:28→18:16)
[2017-08-09] MEDS: METOPROLOL SUCC 50MG EXT REL TAB PO SCH (08:42)
[2017-08-09] MEDS: ASCORBIC ACID 500 MG TAB PO SCH (08:43)
[2017-08-09] MEDS: AMIODARONE 200 MG TAB PO SCH (08:43)
[2017-08-09] MEDS: ENALAPRIL MALEATE 10 MG TAB PO SCH (08:43)
[2017-08-09] MEDS: BUMETANIDE 1 MG TAB PO SCH (08:44)
[2017-08-09] MEDS: ASPIRIN 81 MG CHEW PO SCH (08:47)
--- NOTE | 2017-08-09 09:08 | Progress Note ---
Subjective Date of Service: Aug 09, 2017. Problem List Medical Problems: (1) Abdom Aortic Aneurysm Status: Chronic (2) Acute respiratory failure with hypoxia and hypercapnia Status: Acute (3) Aortic dissection, thoracic Status: Chronic (4) CAD (coronary artery disease) Status: Chronic (5) Chronic Kidney Disease, Unspecified Status: Chronic (6) Chronic Obstructive Pulmonary Disease W (Acute) Exacerbation Status: Chronic (7) Closed left hip fracture Status: Acute (8) Complication of catheter Status: Acute (9) HTN (hypertension) Status: Chronic (10) Hyperlipidemia, Unspecified Status: Chronic (11) Hypertrophy (Benign) Of Prostate W/O Urinary Obst & Oth Luts Status: Chronic (12) Hypothyroidism, Unspecified Status: Chronic (13) Hypoxia Status: Acute (14) Pleural effusion Status: Acute (15) 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 (16) Urinary retention Status: Acute Surgical Problems: (1) 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 (2) Aortocoronary Bypass Status: Chronic (3) 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 Objective Vital Signs Date Time Temp Pulse Resp B/P (MAP) Pulse Ox O2 Delivery O2 Flow Rate FiO2 08/09/17 08:16 36.9 81 25 95/48 (64) 98 Nasal Cannula 3.0 08/09/17 07:31 80 20 93 Mask 3.0 08/09/17 05:12 36.7 88 19 98/47 (64) 91 Nasal Cannula 3.0 08/09/17 04:00 Oxymask 4.0 08/09/17 00:19 36.8 86 21 103/54 (70) 93 08/09/17 00:00 Oxymask 4.0 08/08/17 20:00 Oxymask 4.0 08/08/17 19:53 37.0 87 20 116/62 (80) 96 Oxymask 3.0 08/08/17 19:13 83 20 95 Mask 3.0 08/08/17 16:00 Oxymask 4.0 BiPAP 08/08/17 15:30 36.9 85 20 105/56 (72) 91 Oxymask 3.0 08/08/17 15:25 82 20 94 Mask 4.0 08/08/17 12:00 Oxymask 4.0 BiPAP 08/08/17 11:19 37.1 79 26 130/63 (85) 97 Nasal Cannula 4.0 CPAP 08/08/17 11:07 78 20 97 Mask 4.0 Laboratory Results Last 24 Hours Test 08/09/17 05:52 08/09/17 06:49 White Blood Count 6.63 K/uL Red Blood Count 2.92 M/uL Hemoglobin 7.6 g/dL Hematocrit 26.1 % Mean Corpuscular Volume 89.4 fL Mean Corpuscular Hemoglobin 26.0 pg Mean Corpuscular Hemoglobin Concent 29.1 g/dl RDW Standard Deviation 59.0 fL RDW Coefficient of Variation 18.1 % Platelet Count 245 K/uL Mean Platelet Volume 10.7 fL Prothrombin Time 20.5 SECONDS Prothromb Time International Ratio 2.0 Sodium Level 139 mmol/L Potassium Level 3.7 mmol/L Chloride Level 101 mmol/L Carbon Dioxide Level 36 mmol/L Anion Gap 2.0 mmol/L Blood Urea Nitrogen 15 mg/dl Creatinine 0.99 mg/dl Est Creatinine Clear Calc Drug Dose 68.6 ml/min Estimated GFR () 84.8 Estimated GFR (Non- 73.2 BUN/Creatinine Ratio 15.4 Random Glucose 96 mg/dl Calcium Level 8.0 mg/dl Iron Level 20 mcg/dl Total Iron Binding Capacity 235 mcg/dl Transferrin 194 mg/dl Transferrin % Saturation 7 % Bedside Glucose 104 mg/dl Assessment and Plan Mr. Garcia is a 77 year old man here for increased weakness, acute on chronic anemia and acute respiratory failure with hypoxia and acute systolic heart failure Acute Hypoxic Hypercarbic Respiratory Failure / Acute on Chronic Systolic CHF and Multifocal Pneumonia/Sepsis/E.faecalis UTI poa - Patient was intubated on 07/30 and respiratory acidosis improved and was extubated on 08/01 - Pressor support off since 08/01 - Zosyn and Vancomycin initially now on cephalexin - ABGs 08/06 showed hypercapnia/hypoxia - placed on bipap and given IV lasix, nebs - CXR showed pulmonary congestion - put out almost 4L and oxygenation improved - should continue with bipap while sleeping and Daily Bumex Anemia has a history of anemia of chronic disease and continues with no apparent bleeding and MCV is normocytic. INR has been therapeutic since 08/04 - Iron panel, pending SANTHOSH on CKD Stage III: resolved- avoid nephrotoxins and maintain a slight negative fluid balance Hyperkalemia: RESOLVED Hypokalemia concern continues while on diuretics, - repeated and resolved CAD S/P CABG; AAA/Aortic Dissection; S/P ICD/Pacer; Acute Systolic CHF; Atrial Fibrillation: - follow INR - Amiodarone 200 mg daily, Pravastatin 40 mg daily, and ASA 81 mg daily - Restart Toprol at reduced dosing of 50 mg daily and titrate back to 100 mg daily as tolerated, - Restarted ramipril as patient's bp tolerating Toprol Left arm hematoma 2/2 PICC attempt, slowly improving Weakness - neuro consulted does not feel is transverse myelitis CAD - no evidence of ACS - cont ASA, Statin, B xavier. AAA dissection on CT - was evaluated in the past by Dr. Dunaway who was consulted - no intervention at this time. DVT proph - Coumadin Full code Documented By: Vijay Stack Continued [facility] stay due to: multiple IV medications needed Discharge planning: uncertain
[2017-08-09] MEDS ORDERED: IRON SUCROSE INJ 100 MG in SODIUM CHLORIDE 0.9% 100ML 100 ML IV STA (09:14)
--- NOTE | 2017-08-09 14:54 | Progress Note ---
Subjective Date of Service: Aug 09, 2017. Subjective pt is weakend but is encouraged to try to get oob to chair and to ambulate a bit with assitance of PT is planning on rehab post discharge his is at the bedside and updated. He had no formal complaints other that being weak and feeling short of breath at times Problem List Medical Problems: (1) Abdom Aortic Aneurysm Status: Chronic (2) Acute respiratory failure with hypoxia and hypercapnia Status: Acute (3) Aortic dissection, thoracic Status: Chronic (4) CAD (coronary artery disease) Status: Chronic (5) Chronic Kidney Disease, Unspecified Status: Chronic (6) Chronic Obstructive Pulmonary Disease W (Acute) Exacerbation Status: Chronic (7) Closed left hip fracture Status: Acute (8) Complication of catheter Status: Acute (9) HTN (hypertension) Status: Chronic (10) Hyperlipidemia, Unspecified Status: Chronic (11) Hypertrophy (Benign) Of Prostate W/O Urinary Obst & Oth Luts Status: Chronic (12) Hypothyroidism, Unspecified Status: Chronic (13) Hypoxia Status: Acute (14) Pleural effusion Status: Acute (15) 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 (16) Urinary retention Status: Acute Surgical Problems: (1) 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 (2) Aortocoronary Bypass Status: Chronic (3) 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 Review of Systems Constitutional: + weakness, + fatigue, No fever, No chills Respiratory: + shortness of breath, + dyspnea on exertion, No cough Cardiac: + edema, No chest pain Abdomen: No pain, No nausea, No vomiting, No diarrhea Psychiatric: No depression symptoms, No anxiety Objective Vital Signs Date Time Temp Pulse Resp B/P (MAP) Pulse Ox O2 Delivery O2 Flow Rate FiO2 08/09/17 12:02 36.6 86 24 107/53 (71) 92 Nasal Cannula 3.0 08/09/17 12:00 Oxymask 3.0 08/09/17 11:34 90 20 93 Mask 3.0 08/09/17 08:16 36.9 81 25 95/48 (64) 98 Nasal Cannula 3.0 08/09/17 08:00 Oxymask 3.0 08/09/17 07:31 80 20 93 Mask 3.0 08/09/17 05:12 36.7 88 19 98/47 (64) 91 Nasal Cannula 3.0 08/09/17 04:00 Oxymask 4.0 08/09/17 00:19 36.8 86 21 103/54 (70) 93 08/09/17 00:00 Oxymask 4.0 08/08/17 20:00 Oxymask 4.0 08/08/17 19:53 37.0 87 20 116/62 (80) 96 Oxymask 3.0 08/08/17 19:13 83 20 95 Mask 3.0 08/08/17 16:00 Oxymask 4.0 BiPAP 08/08/17 15:30 36.9 85 20 105/56 (72) 91 Oxymask 3.0 08/08/17 15:25 82 20 94 Mask 4.0 Physical Exam General Appearance: WD/WN, + moderate distress Eyes: normal inspection, sclerae normal Neck: supple, trachea midline Respiratory/Chest: + respiratory distress (miid), + decreased breath sounds, + accessory muscle use Cardiovascular: regular rate, rhythm, + systolic murmur Abdomen: normal bowel sounds, non tender, soft Extremities: no calf tenderness, + pedal edema, + swelling (left arm is improving) Neurologic/Psychiatric: alert, oriented x 3 Laboratory Results Last 24 Hours Test 08/09/17 05:52 08/09/17 06:49 White Blood Count 6.63 K/uL Red Blood Count 2.92 M/uL Hemoglobin 7.6 g/dL Hematocrit 26.1 % Mean Corpuscular Volume 89.4 fL Mean Corpuscular Hemoglobin 26.0 pg Mean Corpuscular Hemoglobin Concent 29.1 g/dl RDW Standard Deviation 59.0 fL RDW Coefficient of Variation 18.1 % Platelet Count 245 K/uL Mean Platelet Volume 10.7 fL Prothrombin Time 20.5 SECONDS Prothromb Time International Ratio 2.0 Sodium Level 139 mmol/L Potassium Level 3.7 mmol/L Chloride Level 101 mmol/L Carbon Dioxide Level 36 mmol/L Anion Gap 2.0 mmol/L Blood Urea Nitrogen 15 mg/dl Creatinine 0.99 mg/dl Est Creatinine Clear Calc Drug Dose 68.6 ml/min Estimated GFR () 84.8 Estimated GFR (Non- 73.2 BUN/Creatinine Ratio 15.4 Random Glucose 96 mg/dl Calcium Level 8.0 mg/dl Iron Level 20 mcg/dl Total Iron Binding Capacity 235 mcg/dl Transferrin 194 mg/dl Transferrin % Saturation 7 % Bedside Glucose 104 mg/dl Assessment and Plan 77M with acute respiratory failure requiring ventilation from pneumonia and sepsis, acute on chronic anemia and acute systolic heart failure Acute Hypoxic Hypercarbic Respiratory Failure 08/01 Acute on Chronic Systolic CHF and Multifocal Pneumonia/Sepsis/E.faecalis UTI poa - Patient was intubated on 07/30 and respiratory acidosis improved and was extubated on 08/01 - Pressor support off since 08/01 - Zosyn and Vancomycin initially now on cephalexin - ABGs 08/06 showed hypercapnia/hypoxia - placed on bipap and given IV lasix, nebs - CXR showed pulmonary congestion - put out almost 4L and oxygenation improved - continue with bipap while sleeping and Daily Bumex His subjective condition had not dramatically improved and if continues to not improve may consider re imaging chest Anemia has a history of anemia of chronic disease and continues with no apparent bleeding and MCV is normocytic. INR has been therapeutic since 08/04 - Iron panel, likely anemia of chronic disease but low iron will give one dose of venofer SANTHOSH on CKD Stage III: resolved- avoid nephrotoxins and maintain a slight negative fluid balance, additional bumex given 08/09 Hyperkalemia: RESOLVED Hypokalemia concern continues while on diuretics, - repeated and resolved CAD S/P CABG; AAA/Aortic Dissection; S/P ICD/Pacer; Acute Systolic CHF; Atrial Fibrillation: - follow INR - Amiodarone 200 mg daily, Pravastatin 40 mg daily, and ASA 81 mg daily - Restarted Toprol at 50 mg daily and titrate back to 100 mg daily if tolerated, - Restarted enalapril in place of ramipril as patient's bp tolerating Toprol Left arm hematoma 2/2 PICC attempt, slowly improving Weakness - neuro consulted does not feel is transverse myelitis CAD - no evidence of ACS - cont ASA, Statin, B xavier. AAA dissection on CT - was evaluated in the past by Dr. Dunaway who was consulted - no intervention at this time. DVT proph - Coumadin Full code PT/OT required Documented By: Vijay Stack Continued [facility] stay due to: multiple IV medications needed Discharge planning: uncertain
[2017-08-09] MEDS ORDERED: BUMETANIDE SOLN 1 MG/4 ML VIAL IV ONE (15:00)
[2017-08-09] MEDS ORDERED: BUMETANIDE IV 2 MG in SYRINGE 0 ML IV STA (15:04)
[2017-08-09] MEDS: WARFARIN SOD 3 MG TAB PO SCH (15:35)
[2017-08-09] MEDS: PRAVASTATIN SOD 40 MG TAB PO SCH (20:20)
[2017-08-09] MEDS: DOCUSATE SODIUM 100 MG CAP PO SCH (20:20)
[2017-08-10] VITALS (12 sets, daily range): BP systolic 105–132; BP diastolic 52–55; PULSE 80–93; TEMP 36.7–37; O2SAT 91–98
[2017-08-10] MEDS: LEVOTHYROXINE 25 MCG TAB PO SCH (05:23)
[2017-08-10] MEDS: ALBUT/IPRATROP 3MG/0.5MG NEB 3 ML VIAL INH SCH ×4 (07:23→19:20)
--- NOTE | 2017-08-10 07:41 | DIAGNOSTIC IMAGING REPORT ---
CHEST ONE VIEW PORTABLE CLINICAL HISTORY: eval for effusion dyspnea COMPARISON STUDY: 08/06/2017 FINDINGS: Cardiomegaly with findings of congestive heart failure. Small bilateral pleural effusions. Slight improvement in aeration of the right lung base. Left base is similar. Position of the patient's permanent bipolar cardiac pacemaker is unaltered. The catheter remains in superior vena cava. IMPRESSION: Generally stable findings of congestive failure versus pulmonary edema. Slight improvement in aeration right lung base The bilateral pleural effusions are stable. The above report was generated using voice recognition software. It may contain grammatical, syntax or spelling errors. Electronically signed by: Jayant Vazquez M.D. 08/10/2017 7:39 AM Dictated Date/Time: 08/10/2017 7:36 AM
--- NOTE | 2017-08-10 07:58 | Progress Note ---
Subjective Date of Service: Aug 10, 2017. Problem List Medical Problems: (1) Abdom Aortic Aneurysm Status: Chronic (2) Acute respiratory failure with hypoxia and hypercapnia Status: Acute (3) Aortic dissection, thoracic Status: Chronic (4) CAD (coronary artery disease) Status: Chronic (5) Chronic Kidney Disease, Unspecified Status: Chronic (6) Chronic Obstructive Pulmonary Disease W (Acute) Exacerbation Status: Chronic (7) Closed left hip fracture Status: Acute (8) Complication of catheter Status: Acute (9) HTN (hypertension) Status: Chronic (10) Hyperlipidemia, Unspecified Status: Chronic (11) Hypertrophy (Benign) Of Prostate W/O Urinary Obst & Oth Luts Status: Chronic (12) Hypothyroidism, Unspecified Status: Chronic (13) Hypoxia Status: Acute (14) Pleural effusion Status: Acute (15) 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 (16) Urinary retention Status: Acute Surgical Problems: (1) 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 (2) Aortocoronary Bypass Status: Chronic (3) 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 Objective Vital Signs Date Time Temp Pulse Resp B/P (MAP) Pulse Ox O2 Delivery O2 Flow Rate FiO2 08/10/17 07:39 36.9 80 30 110/54 (72) 96 Nasal Cannula 3.0 08/10/17 04:02 Oxymask 3.0 08/10/17 04:00 37.0 93 20 109/54 (72) 98 Oxymask 3.0 08/10/17 00:05 Oxymask 3.0 08/09/17 23:51 37.2 89 20 92/60 (71) 94 Oxymask 3.0 08/09/17 20:07 Oxymask 3.0 08/09/17 19:57 37.1 96 20 128/59 (82) 93 Oxymask 3.0 08/09/17 18:16 92 20 96 Mask 3.0 08/09/17 16:00 Oxymask 3.0 08/09/17 15:53 37.1 84 20 127/51 (76) 94 Oxymask 3.0 08/09/17 15:22 84 20 95 Mask 3.0 08/09/17 12:02 36.6 86 24 107/53 (71) 92 Nasal Cannula 3.0 08/09/17 12:00 Oxymask 3.0 08/09/17 11:34 90 20 93 Mask 3.0 08/09/17 08:16 36.9 81 25 95/48 (64) 98 Nasal Cannula 3.0 08/09/17 08:00 Oxymask 3.0 Assessment and Plan 77M with acute respiratory failure requiring ventilation from pneumonia and sepsis, acute on chronic anemia and acute systolic heart failure Initially Acute Hypoxic Hypercarbic Respiratory Failure / Acute on Chronic Systolic CHF and Multifocal Pneumonia/Sepsis/E.faecalis UTI poa - Patient was intubated on 07/30 and respiratory acidosis improved and was extubated on 08/01 - Pressor support off since 08/01 - Zosyn and Vancomycin initially - ABGs 08/06 showed hypercapnia/hypoxia - placed on bipap and given IV lasix, nebs - CXR showed pulmonary congestion - put out almost 4L and oxygenation improved - continue with bipap while sleeping and Daily Bumex, pt has persistent oxygen requirements, did increase daily bumex with some visible improvement of CXR Anemia has a history of anemia of chronic disease and continues with no apparent bleeding and MCV is normocytic. INR has been therapeutic since 08/04 - Iron panel, likely anemia of chronic disease but low iron will give one dose of venofer 08/09 SANTHOSH on CKD Stage III: resolved- avoid nephrotoxins and maintain a slight negative fluid balance, additional bumex given 08/09 Hyperkalemia: RESOLVED Hypokalemia concern continues while on diuretics, - repeated and resolved CAD S/P CABG; AAA/Aortic Dissection; S/P ICD/Pacer; Acute Systolic CHF; Atrial Fibrillation: - follow INR - Amiodarone 200 mg daily, Pravastatin 40 mg daily, and ASA 81 mg daily - Restarted Toprol at 50 mg daily and titrate back to 100 mg daily if tolerated, - Restarted enalapril in place of ramipril as patient's bp tolerating Toprol Left arm hematoma 2/2 PICC attempt, slowly improving Weakness - neuro consulted does not feel is transverse myelitis CAD - no evidence of ACS - cont ASA, Statin, B xavier. AAA dissection on CT - was evaluated in the past by Dr. Dunaway who was consulted - no intervention at this time. DVT proph - Coumadin Full code PT/OT required Continued [facility] stay due to: multiple IV medications needed Discharge planning: uncertain
[2017-08-10] MEDS: METOPROLOL SUCC 50MG EXT REL TAB PO SCH (08:30)
[2017-08-10] MEDS: AMIODARONE 200 MG TAB PO SCH (08:30)
[2017-08-10] MEDS: BUMETANIDE 1 MG TAB PO SCH (08:31)
[2017-08-10] MEDS: ASCORBIC ACID 500 MG TAB PO SCH (08:31)
[2017-08-10] MEDS: ENALAPRIL MALEATE 10 MG TAB PO SCH (08:32)
[2017-08-10] MEDS: ASPIRIN 81 MG CHEW PO SCH (08:36)
--- NOTE | 2017-08-10 15:13 | Progress Note ---
Subjective Date of Service: Aug 10, 2017. Subjective this pt looks much better today and is able to get out of bed, is able to wean oxygen down but still not to off as desaturates significantly with effort without oxygen even speaking no chest pain but marked deconditioning Problem List Medical Problems: (1) Abdom Aortic Aneurysm Status: Chronic (2) Acute respiratory failure with hypoxia and hypercapnia Status: Acute (3) Aortic dissection, thoracic Status: Chronic (4) CAD (coronary artery disease) Status: Chronic (5) Chronic Kidney Disease, Unspecified Status: Chronic (6) Chronic Obstructive Pulmonary Disease W (Acute) Exacerbation Status: Chronic (7) Closed left hip fracture Status: Acute (8) Complication of catheter Status: Acute (9) HTN (hypertension) Status: Chronic (10) Hyperlipidemia, Unspecified Status: Chronic (11) Hypertrophy (Benign) Of Prostate W/O Urinary Obst & Oth Luts Status: Chronic (12) Hypothyroidism, Unspecified Status: Chronic (13) Hypoxia Status: Acute (14) Pleural effusion Status: Acute (15) 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 (16) Urinary retention Status: Acute Surgical Problems: (1) 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 (2) Aortocoronary Bypass Status: Chronic (3) 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 Review of Systems Constitutional: + weakness, + fatigue, No fever, No chills Respiratory: + shortness of breath, + dyspnea on exertion, No cough Cardiac: + edema, No chest pain Abdomen: No pain, No nausea, No vomiting, No diarrhea Musculoskeletal: + joint pain, + muscle pain Neurologic: + weakness Psychiatric: + depression symptoms, No anxiety Objective Vital Signs Date Time Temp Pulse Resp B/P (MAP) Pulse Ox O2 Delivery O2 Flow Rate FiO2 08/10/17 15:06 82 20 92 Nasal Cannula 2.0 08/10/17 12:00 96 Nasal Cannula 3.0 30 08/10/17 11:59 36.7 83 29 132/52 (78) 91 08/10/17 11:15 80 20 95 Mask 2.0 08/10/17 08:00 96 Nasal Cannula 3.0 30 08/10/17 07:39 36.9 80 30 110/54 (72) 96 Nasal Cannula 3.0 08/10/17 07:22 84 20 96 Mask 3.0 08/10/17 04:02 Oxymask 3.0 08/10/17 04:00 37.0 93 20 109/54 (72) 98 Oxymask 3.0 08/10/17 00:05 Oxymask 3.0 08/09/17 23:51 37.2 89 20 92/60 (71) 94 Oxymask 3.0 08/09/17 20:07 Oxymask 3.0 08/09/17 19:57 37.1 96 20 128/59 (82) 93 Oxymask 3.0 08/09/17 18:16 92 20 96 Mask 3.0 08/09/17 16:00 Oxymask 3.0 08/09/17 15:53 37.1 84 20 127/51 (76) 94 Oxymask 3.0 08/09/17 15:22 84 20 95 Mask 3.0 Physical Exam General Appearance: WD/WN, + mild distress Eyes: normal inspection, sclerae normal Respiratory/Chest: chest non-tender, + respiratory distress, + rales (right base) Cardiovascular: regular rate, rhythm, + systolic murmur Abdomen: normal bowel sounds, non tender, soft Extremities: + pedal edema, + swelling Neurologic/Psychiatric: alert, oriented x 3 Assessment and Plan 77M with acute respiratory failure requiring ventilation from pneumonia and sepsis, acute on chronic anemia and acute systolic heart failure Initially Acute Hypoxic Hypercarbic Respiratory Failure 08/01 Acute on Chronic Systolic CHF and Multifocal Pneumonia/Sepsis/E.faecalis UTI poa - Patient was intubated on 07/30 and respiratory acidosis improved and was extubated on 08/01 - Pressor support off since 08/01 - Zosyn and Vancomycin initially - ABGs 08/06 showed hypercapnia/hypoxia - placed on bipap and given IV lasix, nebs - CXR showed pulmonary congestion - put out almost 4L and oxygenation improved - continue with bipap while sleeping and Daily Bumex, pt has persistent oxygen requirements, did increase daily bumex with some visible improvement of CXR 08/10, will have additional afternoon bumex today Anemia has a history of anemia of chronic disease and continues to be stable , . INR has been therapeutic since 08/04 - Iron panel, likely anemia of chronic disease but low iron will give one dose of venofer 08/09, SANTHOSH on CKD Stage III: resolved- avoid nephrotoxins and maintain a slight negative fluid balance, additional bumex given 08/09, 08/10 without issue of CR change Hyperkalemia: RESOLVED Hypokalemia concern continues while on diuretics, - repeated and resolved follow QOD CAD S/P CABG; AAA/Aortic Dissection; S/P ICD/Pacer; Acute Systolic CHF; Atrial Fibrillation: - follow INR has been therapeutic - Amiodarone 200 mg daily, Pravastatin 40 mg daily, and ASA 81 mg daily - Restarted Toprol at 50 mg daily - Restarted enalapril in place of ramipril as patient's bp tolerating Toprol Left arm hematoma 08/01 PICC attempt, almost resolved Weakness - neuro consulted does not feel is transverse myelitis CAD - no evidence of ACS - cont ASA, Statin, B axvier. AAA dissection on CT - was evaluated in the past by Dr. Dunaway who was consulted - no intervention at this time. DVT proph - Coumadin Full code re confirmed 08/10 PT/OT required, will need rehab after discharge Continued [facility] stay due to: multiple IV medications needed Discharge planning: uncertain
[2017-08-10] MEDS ORDERED: BUMETANIDE IV 1 MG in SYRINGE 0 ML IV SCH (15:15)
[2017-08-10] MEDS: WARFARIN SOD 3 MG TAB PO SCH (16:03)
[2017-08-10] MEDS: DOCUSATE SODIUM 100 MG CAP PO SCH (19:57)
[2017-08-10] MEDS: PRAVASTATIN SOD 40 MG TAB PO SCH (20:00)
[2017-08-11] VITALS (10 sets, daily range): BP systolic 85–130; BP diastolic 42–75; PULSE 81–100; TEMP 36.7–37.4; O2SAT 93–99
[2017-08-11] MEDS: LEVOTHYROXINE 25 MCG TAB PO SCH (05:42)
[2017-08-11 06:12] LABS: HEMATOCRIT 26.2 % (42-52); HEMOGLOBIN 7.6 g/dL (14.0-18.0); MEAN CELL VOLUME 89.4 fL (80-100); MEAN CORPUSCULAR HEMOGLOBIN 25.9 pg (25-34); MEAN PLATELET VOLUME 9.3 fL (7.4-10.4); PLATELET COUNT 215 K/uL (130-400); RED CELL DISTRIBUTION WIDTH CV 18.5 % (11.5-14.5); RED CELL DISTRIBUTION WIDTH SD 59.6 fL (36.4-46.3); WHITE BLOOD COUNT 7.63 K/uL (4.8-10.8)
[2017-08-11 06:28] LABS: INR 2.2 (0.9-1.1)
[2017-08-11 06:44] LABS: CALCIUM 8.2 mg/dl (8.5-10.1); CREATININE 1.09 mg/dl (0.60-1.40); POTASSIUM 3.7 mmol/L (3.5-5.1)
[2017-08-11] MEDS: ALBUT/IPRATROP 3MG/0.5MG NEB 3 ML VIAL INH SCH ×4 (07:24→19:22)
[2017-08-11] MEDS: METOPROLOL SUCC 50MG EXT REL TAB PO SCH ×2 (08:34→08:38)
[2017-08-11] MEDS: ENALAPRIL MALEATE 10 MG TAB PO SCH (08:35)
[2017-08-11] MEDS: AMIODARONE 200 MG TAB PO SCH (08:36)
[2017-08-11] MEDS: ASCORBIC ACID 500 MG TAB PO SCH (08:36)
[2017-08-11] MEDS: BUMETANIDE 1 MG TAB PO SCH (08:37)
[2017-08-11] MEDS: ASPIRIN 81 MG CHEW PO SCH (08:41)
[2017-08-11] MEDS ORDERED: BUMETANIDE IV 1 MG in SYRINGE 0 ML IV ONE (11:30)
[2017-08-11] MEDS ORDERED: POLYETHYLENE (MIRALAX) 17 GM PACK PO ONE (13:30)
--- NOTE | 2017-08-11 13:44 | Hospitalist Progress Note ---
Hospitalist Progress Note Date of Service Aug 11, 2017. (Judie Rivera .[place]) Subjective Pt evaluation today including: conversation w/ patient, physical exam, chart review, lab review, review of inpatient medication list Voiding: suggs catheter in place Mr. Garcia is seated in a chair, family in the room, feels he is improving. He has had some constipation but otherwise has no complaints. He continues to require 3L NC ROS Constitutional: no chills, aches, sweats or fever Respiratory: no sob,cough, sputum, or wheezing Cardiac: no chest pain, palpitations, edema, orthopnea or lightheadedness GI: no abdominal pain, nausea, vomiting, diarrhea or constipation : no dysuria or hesitancy Extremities: no joint pain or weakness Skin: no rash All other systems reviewed and negative (Judie Rivera CRNP) Medications Medications Administered Medications (Trade) Dose Ordered Sig/Deion Route Start Time Stop Time Status Last Admin Dose Admin Sodium Chloride 1,000 ml @ 999 mls/hr Q1H1M STAT IV 07/28/17 19:54 07/28/17 20:54 DC 07/28/17 19:54 999 MLS/HR Cefepime HCl 1000 mg/Dextrose 111 ml @ 200 mls/hr NOW STAT IV 07/28/17 21:20 07/28/17 21:53 DC 07/28/17 21:52 200 MLS/HR Levofloxacin (Levaquin / D5W) 750 mg NOW STAT IV 07/28/17 21:20 07/28/17 21:22 DC 07/28/17 22:13 750 MG Amiodarone HCl (Cordarone Tab) 200 mg QAM PO 07/29/17 09:00 08/28/17 08:59 08/11/17 08:36 200 MG Ascorbic Acid (Vitamin C Tab) 500 mg QAM PO 07/29/17 09:00 08/28/17 08:59 08/11/17 08:36 500 MG Aspirin (Ecotrin Tab) 81 mg QAM PO 07/29/17 09:00 07/30/17 09:26 DC 07/30/17 09:12 81 MG Docusate Sodium (coLACE CAP) 100 mg QPM PO 07/29/17 21:00 07/30/17 21:28 DC 07/29/17 22:13 100 MG Famotidine (Pepcid Tab) 20 mg QAM PO 07/29/17 09:00 07/30/17 09:23 DC 07/30/17 09:13 20 MG Levothyroxine Sodium (Synthroid Tab) 25 mcg DAILYBB PO 07/29/17 06:30 08/28/17 06:59 08/11/17 05:42 25 MCG Metoprolol Succinate (Toprol Xl Tab) 100 mg QAM PO 07/29/17 09:00 07/29/17 19:00 DC 07/29/17 08:17 100 MG Pravastatin Sodium (Pravachol Tab) 40 mg HS PO 07/29/17 21:00 08/28/17 20:59 08/10/17 20:00 40 MG Warfarin Sodium (Coumadin Tab) 5 mg DAILY@16 PO 07/29/17 16:00 08/08/17 13:53 DC 08/04/17 16:28 5 MG Enalapril Maleate (Vasotec Tab) 20 mg QAM PO 07/29/17 09:00 07/29/17 19:00 DC 07/29/17 08:16 20 MG Acetaminophen (Tylenol Tab) 650 mg Q4H PRN PO 07/28/17 22:00 08/27/17 21:59 07/30/17 03:11 650 MG Polyethylene (Miralax Powder Packet) 17 gm DAILY PRN PO 07/28/17 22:00 08/27/17 21:59 08/07/17 11:20 17 GM Furosemide 40 mg/ Syringe 4 ml @ 4 mls/min ONE ONCE IV 07/29/17 03:15 07/29/17 03:16 DC 07/29/17 04:32 4 MLS/MIN Ceftriaxone Sodium 1 gm/ Dextrose 50 ml @ 100 mls/hr Q24H IV 07/29/17 08:00 07/29/17 15:57 DC 07/29/17 08:15 100 MLS/HR Albuterol/ Ipratropium (Duoneb) 3 ml QIDR INH 07/29/17 08:00 07/30/17 18:05 DC 07/29/17 16:25 3 ML Furosemide 40 mg/ Syringe 4 ml @ 4 mls/min 1530 ONCE IV 07/29/17 15:30 07/29/17 15:31 DC 07/29/17 15:33 4 MLS/MIN Piperacillin Sod/ Tazobactam Sod 3.375 gm/Dextrose 115 ml @ 28.75 mls/ hr Q8H IV 07/29/17 22:00 08/06/17 11:16 DC 08/06/17 05:28 28.75 MLS/HR Piperacillin Sod/ Tazobactam Sod 4.5 gm/Dextrose 120 ml @ 200 mls/hr NOW STAT IV 07/29/17 16:11 07/29/17 16:46 DC 07/29/17 16:11 200 MLS/HR Vancomycin HCl 2500 mg/Sodium Chloride 550 ml @ 200 mls/hr NOW STAT IV 07/29/17 16:12 07/29/17 18:56 DC 07/29/17 16:53 200 MLS/HR Vancomycin HCl 1500 mg/Sodium Chloride 530 ml @ 200 mls/hr Q12H IV 07/30/17 02:00 07/30/17 12:41 DC 07/30/17 01:17 200 MLS/HR Sodium Chloride 500 ml @ 999 mls/hr NOW STAT IV 07/29/17 19:43 07/29/17 20:13 DC 07/29/17 20:00 999 MLS/HR Dopamine HCl/ Dextrose (DOPamine 400MG / D5W) 400 mg STK-MED ONCE .ROUTE 07/29/17 20:27 07/29/17 20:28 DC 07/29/17 20:34 400 MG Dobutamine HCl 0 ml @ 0 mls/hr Q0M PRN IV 07/30/17 00:08 08/02/17 07:07 DC 07/31/17 22:30 30.7 MLS/HR Norepinephrine Bitartrate 8 mg/ Dextrose 508 ml @ 0 mls/hr Q0M PRN IV 07/30/17 05:05 08/02/17 06:55 DC 07/30/17 17:55 24 MLS/HR Sodium Bicarbonate (Sodium Bicarbonate 8.4% Inj) 150 ml NOW STAT IV 07/30/17 06:19 07/30/17 06:22 DC 07/30/17 06:27 150 ML Miscellaneous (Rapid Sequence Induction Bag) 1 ea STK-MED ONCE N/A 07/30/17 06:21 07/30/17 06:22 DC 07/30/17 06:50 1 EA Furosemide (Lasix Inj) 40 mg STK-MED ONCE .ROUTE 07/30/17 06:45 07/30/17 06:46 DC 07/30/17 06:49 40 MG Furosemide (Lasix Inj) 40 mg STK-MED ONCE .ROUTE 07/30/17 06:45 07/30/17 06:46 DC 07/30/17 06:50 40 MG Midazolam HCl (Versed Inj) 2 mg Q2H PRN IV 07/30/17 08:45 08/02/17 07:07 DC 07/30/17 11:34 2 MG Fentanyl Citrate (Fentanyl Inj) 100 mcg Q2H PRN IV 07/30/17 08:45 08/02/17 07:07 DC 07/30/17 13:55 100 MCG Vasopressin 50 units/Sodium Chloride 502.5 ml @ 24 mls/hr [id number] IV 07/30/17 08:45 08/02/17 06:55 DC 07/31/17 05:46 24 MLS/HR Magnesium Sulfate 1 gm/Prmx 100 ml @ 100 mls/hr Q1H IV 07/30/17 09:00 07/30/17 10:59 DC 07/30/17 10:18 100 MLS/HR Pantoprazole Sodium 40 mg/ Syringe 10 ml @ 5 mls/min DAILY@11 IV 07/30/17 11:00 08/02/17 06:55 DC 08/01/17 10:52 5 MLS/MIN Aspirin (Aspirin Chew) 81 mg QAM PO 07/31/17 09:00 08/30/17 08:59 08/11/17 08:41 81 MG Furosemide 80 mg/ Syringe 8 ml @ 4 mls/min NOW ONCE IV 07/30/17 18:30 07/30/17 18:31 DC 07/30/17 19:20 4 MLS/MIN Docusate Sodium (coLACE SYRUP) 100 mg QPM PO 07/30/17 21:30 08/02/17 02:13 DC 08/01/17 20:57 100 MG Vancomycin HCl 1750 mg/Sodium Chloride 535 ml @ 200 mls/hr Q24H IV 07/31/17 07:15 07/31/17 15:18 DC 07/31/17 07:47 200 MLS/HR Furosemide 40 mg/ Syringe 4 ml @ 4 mls/min ONE ONCE IV 07/31/17 08:45 07/31/17 08:46 DC 07/31/17 09:08 4 MLS/MIN Potassium Phosphate 21 mmol/ Sodium Chloride 507 ml @ 144.857 mls/hr ONE ONCE IV 07/31/17 08:45 07/31/17 12:14 DC 07/31/17 09:07 144.857 MLS/HR Potassium Chloride 20 meq/ Prmx 100 ml @ 50 mls/hr Q2H IV 07/31/17 09:30 07/31/17 13:29 DC 07/31/17 11:35 50 MLS/HR Vancomycin HCl 1500 mg/Sodium Chloride 530 ml @ 200 mls/hr Q24H IV 08/01/17 01:00 08/01/17 10:14 DC 08/01/17 01:18 200 MLS/HR Potassium Chloride 20 meq/ Prmx 100 ml @ 50 mls/hr Q2H IV 08/01/17 09:30 08/01/17 15:29 DC 08/01/17 13:33 50 MLS/HR Furosemide 30 mg/ Syringe 3 ml @ 4 mls/min BID IV 08/01/17 09:00 08/01/17 18:40 DC 08/01/17 09:33 4 MLS/MIN Vancomycin HCl 1500 mg/Sodium Chloride 530 ml @ 200 mls/hr Q18H IV 08/01/17 19:00 08/04/17 06:46 DC 08/03/17 06:14 200 MLS/HR Potassium/ Phosphorus/Sodium (Phospha 250 Neutral 155-852-130 Mg) 1 tab Q4H PO 08/02/17 02:00 08/02/17 10:01 DC 08/02/17 09:43 1 TAB Potassium Chloride (Klor-Con M10) 20 meq Q4H PO 08/02/17 02:00 08/02/17 10:01 DC 08/02/17 07:35 20 MEQ Docusate Sodium (coLACE CAP) 100 mg QPM PO 08/02/17 21:00 09/01/17 20:59 08/10/17 19:57 100 MG Bumetanide (Bumex Tab) 1 mg QAM PO 08/02/17 09:00 08/09/17 14:53 DC 08/09/17 08:44 1 MG Acetazolamide Sodium 500 mg/ Syringe 5 ml @ 5 mls/min BID IV 08/02/17 09:00 08/02/17 21:00 DC 08/02/17 21:32 5 MLS/MIN Heparin Sodium (Porcine) (Heparin 10 Unit/ ml 5 ml Flush) 5 ml PRN PRN FLUSH 08/02/17 18:15 09/01/17 18:14 08/08/17 09:59 5 ML Vancomycin HCl 1500 mg/Sodium Chloride 530 ml @ 200 mls/hr Q24H IV 08/04/17 09:00 08/06/17 11:17 DC 08/06/17 08:32 200 MLS/HR Metoprolol Succinate (Toprol Xl Tab) 50 mg QAM PO 08/05/17 09:00 09/04/17 08:59 08/10/17 08:30 50 MG Metoprolol Succinate (Toprol Xl Tab) 50 mg 1100 ONCE PO 08/04/17 11:00 08/04/17 11:01 DC 08/04/17 11:21 50 MG Furosemide 40 mg/ Syringe 4 ml @ 4 mls/min NOW ONCE IV 08/06/17 09:30 08/06/17 09:31 DC 08/06/17 09:59 4 MLS/MIN Albuterol/ Ipratropium (Duoneb) 3 ml ONE STAT INH 08/06/17 09:04 08/06/17 09:07 DC 08/06/17 09:25 3 ML Cephalexin Monohydrate (Keflex Cap) 500 mg QID PO 08/06/17 13:00 08/08/17 23:59 DC 08/08/17 21:47 500 MG Furosemide 40 mg/ Syringe 4 ml @ 4 mls/min ONE ONCE IV 08/06/17 14:00 08/06/17 14:01 DC 08/06/17 15:48 4 MLS/MIN Albuterol/ Ipratropium (Duoneb) 3 ml Q4RWA INH 08/06/17 20:00 09/05/17 19:59 08/11/17 11:06 3 ML Furosemide 20 mg/ Syringe 2 ml @ 4 mls/min 1830 ONCE IV 08/06/17 18:30 08/06/17 18:31 DC 08/06/17 19:28 4 MLS/MIN Potassium Chloride (Klor-Con M10) 20 meq 0745 ONCE PO 08/07/17 07:45 08/07/17 07:46 DC 08/07/17 09:24 20 MEQ Potassium Chloride (Klor-Con Tab) 20 meq TODAY@0930 ONCE PO 08/07/17 09:30 08/07/17 09:31 DC 08/07/17 09:24 20 MEQ Potassium Chloride (Klor-Con M10) 10 meq TODAY@1200 ONCE PO 08/07/17 12:00 08/07/17 12:01 DC 08/07/17 12:00 10 MEQ Enalapril Maleate (Vasotec Tab) 20 mg QAM PO 08/08/17 09:00 09/07/17 08:59 08/10/17 08:32 20 MG Polyethylene (Miralax Powder Packet) 17 gm NOW ONCE PO 08/08/17 12:30 08/08/17 12:31 DC 08/08/17 13:23 17 GM Bisacodyl (Dulcolax Supp) 10 mg NOW STAT IA 08/08/17 12:16 08/08/17 12:20 DC 08/08/17 14:02 10 MG Warfarin Sodium (Coumadin Tab) 3 mg DAILY@16 PO 08/08/17 16:00 09/07/17 15:59 08/10/17 16:03 3 MG Iron Sucrose 100 mg/Sodium Chloride 105 ml @ 420 mls/hr NOW STAT IV 08/09/17 09:14 08/09/17 09:28 DC 08/09/17 09:51 420 MLS/HR Bumetanide (Bumex Tab) 2 mg QAM PO 08/10/17 09:00 09/01/17 08:59 08/11/17 08:37 2 MG Bumetanide 2 mg/ Syringe 8 ml @ 4 mls/min NOW STAT IV 08/09/17 15:04 08/09/17 15:05 DC 08/09/17 15:34 4 MLS/MIN Bumetanide 1 mg/ Syringe 4 ml @ 4 mls/min TODAY@1515 IV 08/10/17 15:15 08/10/17 16:00 DC 08/10/17 16:04 4 MLS/MIN Bumetanide 1 mg/ Syringe 4 ml @ 4 mls/min NOW ONCE IV 08/11/17 11:30 08/11/17 11:31 DC 08/11/17 12:26 4 MLS/MIN (Judie Rivera, [place]) Objective Vital Signs Date Time Temp Pulse Resp B/P (MAP) Pulse Ox O2 Delivery O2 Flow Rate FiO2 08/11/17 11:52 Nasal Cannula 3.0 08/11/17 11:50 36.7 84 18 99/42 (61) 96 Room Air 08/11/17 11:06 81 20 95 Room Air 08/11/17 08:13 36.7 81 21 85/53 (64) 98 Nasal Cannula 2.0 08/11/17 08:00 Nasal Cannula 3.0 08/11/17 07:24 81 20 95 Nasal Cannula 2.0 08/11/17 04:00 Nasal Cannula 3.0 08/11/17 03:38 37.1 92 25 96/54 (68) 93 Nasal Cannula 2.0 08/10/17 23:59 Nasal Cannula 3.0 08/10/17 23:43 36.9 86 24 116/55 (75) 96 Nasal Cannula 2.0 08/10/17 20:00 Nasal Cannula 3.0 08/10/17 19:30 36.8 90 20 114/52 (72) 96 Nasal Cannula 2.0 08/10/17 19:20 87 20 96 Nasal Cannula 2.0 08/10/17 16:00 Nasal Cannula 3.0 08/10/17 15:30 37.0 84 20 105/55 (72) 96 Nasal Cannula 2.0 08/10/17 15:06 82 20 92 Nasal Cannula 2.0 (Judie Rivera, [place]) Physical Exam Notes: General: no distress Eyes: normal inspection, PERLL Respiratory: chest non tender, clear to auscultation, normal breath sounds, no respiratory distress, no accessory muscle use Cardiac: regular rate and rhythm, no rub or gallop, systolic murmur, no edema, no jvd GI/: active bowel sounds, no abd pain or tenderness, soft, non distended Extremities: normal range of motion, normal strength, non tender Neuro/Psych: alert and oriented x 3, normal mood and affect Skin: normal color, dry (Judie Rivera, [place]) Laboratory Results Last 24 Hours Test 08/11/17 05:55 White Blood Count 7.63 K/uL Red Blood Count 2.93 M/uL Hemoglobin 7.6 g/dL Hematocrit 26.2 % Mean Corpuscular Volume 89.4 fL Mean Corpuscular Hemoglobin 25.9 pg Mean Corpuscular Hemoglobin Concent 29.0 g/dl RDW Standard Deviation 59.6 fL RDW Coefficient of Variation 18.5 % Platelet Count 215 K/uL Mean Platelet Volume 9.3 fL Prothrombin Time 22.3 SECONDS Prothromb Time International Ratio 2.2 Sodium Level 141 mmol/L Potassium Level 3.7 mmol/L Chloride Level 99 mmol/L Carbon Dioxide Level 38 mmol/L Anion Gap 4.0 mmol/L Blood Urea Nitrogen 18 mg/dl Creatinine 1.09 mg/dl Est Creatinine Clear Calc Drug Dose 62.3 ml/min Estimated GFR () 75.5 Estimated GFR (Non- 65.1 BUN/Creatinine Ratio 16.3 Random Glucose 93 mg/dl Calcium Level 8.2 mg/dl Magnesium Level 1.9 mg/dl (Judie Rivera CRNP) Assessment and Plan Mr. Garcia is a 77 year old man here for increased weakness Acute Hypoxic Hypercarbic Respiratory Failure 2/ Acute on Chronic Systolic CHF and Multifocal Pneumonia/Sepsis/E.faecalis UTI - Patient was intubated on 07/30 and respiratory acidosis improved on subsequent draws and extubated on 08/01 - Pressor support off since 08/01 - Zosyn and Vancomycin discontinued - ID on board - switched to cephalexin at this point - ABGs 08/06 showed hypercapnea/hypoxia - placed on bipap and given IV lasix, nebs - CXR showed pulmonary congestion - put out almost 4L and oxygenation improved - should continue with bipap while sleeping - Daily Bumex was discontinued at [facility] - po bumex regimen has been resumed - Additional 1 mg IV Bumex this afternoon - will need to watch bps but so far patient has been tolerating lower blood pressures and creatinine remains wnl Anemia - likely anemia of chronic disease as there is no apparent bleeding and MCV is normocytic. INR has been therapeutic since 08/04 - Iron panel was low - given 1 transfusion of iron 08/09, 325 mg iron daily - Transfuse if hgb drops below 7 or patient becomes symptomatic SANTHOSH on CKD Stage III: - resolved - Nephrology following - appreciate recommendations - avoid nephrotoxins and maintain a slight negative fluid balance Hyperkalemia - resolved - potassium was not discontinued when Bumex was discontinue at HS - trended down Hypokalemia - repleated and resolved CAD S/P CABG; AAA/Aortic Dissection; S/P ICD/Pacer; Acute Systolic CHF; Atrial Fibrillation: Supratherapeutic INR - Has bovine valve - INR goal 2-3 - Amiodarone 200 mg daily, Pravastatin 40 mg daily, and ASA 81 mg daily - Restart Toprol at reduced dosing of 50 mg daily and titrate back to 100 mg daily as tolerated, - Restart NADEEM when bp tolerating - INR supratherapuetic likely due to interactions with other medications vs possible relation to shock/liver? -Coumadin held 08/01 for supratherapeutic INR - INR therapeutic since 08/04 without any coumadin given - restarted 08/08 at reduced dose - check INR am Left arm hematoma 08/01 PICC attempt - improving Weakness - neuro consulted - patient has history of transverse myelitis however Dr. Collins does not feel this is currently an issue. - PT/OT CAD - no evidence of ACS - cont ASA, Statin, B xavier. 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 Dunaway who was consulted - no intervention at this time. Constipation - Miralax DVT proph - Coumadin Full code (Judie Rivera ., [place]) LIBRARY PARAPROFESSIONAL Physician Supervision Note: I interviewed and examined the patient. Discussed with Judie Rivera NP and agree with findings and plan as documented in the note. Any exceptions or clarifications are listed here: None Patient is covered by his and family is feeling much better today than he has over the last few days he has continues with diuresis but has lower blood pressures and vital signs show temp 36.7 pulse 81 respiration rate 21 BP is low at 85 or 50 O2 sat is 98 on 2 L His cardiac exam is distant regular with a systolic murmur his lungs are decreased at the bases with bilateral rales This patient is a substantial hospitalization with ICU support with ventilation and pressors who is now recovering from acute on chronic systolic heart failure with daily diuresis with attention paid to his chronic kidney disease he'll likely need some subacute rehabilitation prior to going home he is improving nicely we'll continue diuresis until he has some renal distress from diuresis Documented By: Vijay Stack (Vijay Stack M.D.)
[2017-08-11] MEDS ORDERED: BISACODYL 10 MG SUPP PR PRN (13:45)
[2017-08-11] MEDS: WARFARIN SOD 3 MG TAB PO SCH (16:20)
[2017-08-11] MEDS: DOCUSATE SODIUM 100 MG CAP PO SCH (21:21)
[2017-08-11] MEDS: PRAVASTATIN SOD 40 MG TAB PO SCH (21:21)
[2017-08-12] VITALS (10 sets, daily range): BP systolic 98–122; BP diastolic 51–68; PULSE 85–100; TEMP 36.3–37.2; O2SAT 92–98
[2017-08-12] MEDS: LEVOTHYROXINE 25 MCG TAB PO SCH (05:15)
[2017-08-12 06:18] LABS: INR 2.2 (0.9-1.1)
[2017-08-12] MEDS: ALBUT/IPRATROP 3MG/0.5MG NEB 3 ML VIAL INH SCH ×4 (07:22→19:25)
[2017-08-12] MEDS: ASPIRIN 81 MG CHEW PO SCH (10:00)
[2017-08-12] MEDS: BUMETANIDE 1 MG TAB PO SCH (10:01)
[2017-08-12] MEDS: FERROUS SULFATE 325 MG TAB PO SCH (10:02)
[2017-08-12] MEDS: AMIODARONE 200 MG TAB PO SCH (10:02)
[2017-08-12] MEDS: ENALAPRIL MALEATE 10 MG TAB PO SCH (10:03)
[2017-08-12] MEDS: METOPROLOL SUCC 50MG EXT REL TAB PO SCH (10:03)
[2017-08-12] MEDS: ASCORBIC ACID 500 MG TAB PO SCH (10:04)
[2017-08-12] MEDS: POLYETHYLENE (MIRALAX) 17 GM PACK PO PRN (10:04)
[2017-08-12] MEDS ORDERED: BUMETANIDE SOLN 1 MG/4 ML VIAL IV ONE (11:45)
[2017-08-12] MEDS ORDERED: BUMETANIDE IV 1 MG in SYRINGE 0 ML IV ONE (12:00)
--- NOTE | 2017-08-12 16:11 | Hospitalist Progress Note ---
Hospitalist Progress Note Date of Service Aug 12, 2017. (Judie Rivera CRNP) Subjective Pt evaluation today including: conversation w/ patient, physical exam, chart review, lab review, review of inpatient medication list Voiding: no voiding problems Mr. Garcia continues to slowly improve. He did desat to 85% when attempted to go off of supplemental oxygen. Sating well on 2L NC. ROS Constitutional: no chills, aches, sweats or fever Respiratory: no sob,cough, sputum, or wheezing Cardiac: no chest pain, palpitations, edema, orthopnea or lightheadedness GI: no abdominal pain, nausea, vomiting, diarrhea or constipation : no dysuria or hesitancy Extremities: no joint pain or weakness Skin: no rash All other systems reviewed and negative (Judie Rivera CRNP) Medications Medications Administered Medications (Trade) Dose Ordered Sig/Deion Route Start Time Stop Time Status Last Admin Dose Admin Sodium Chloride 1,000 ml @ 999 mls/hr Q1H1M STAT IV 07/28/17 19:54 07/28/17 20:54 DC 07/28/17 19:54 999 MLS/HR Cefepime HCl 1000 mg/Dextrose 111 ml @ 200 mls/hr NOW STAT IV 07/28/17 21:20 07/28/17 21:53 DC 07/28/17 21:52 200 MLS/HR Levofloxacin (Levaquin / D5W) 750 mg NOW STAT IV 07/28/17 21:20 07/28/17 21:22 DC 07/28/17 22:13 750 MG Amiodarone HCl (Cordarone Tab) 200 mg QAM PO 07/29/17 09:00 08/28/17 08:59 08/12/17 10:02 200 MG Ascorbic Acid (Vitamin C Tab) 500 mg QAM PO 07/29/17 09:00 08/28/17 08:59 08/12/17 10:04 500 MG Aspirin (Ecotrin Tab) 81 mg QAM PO 07/29/17 09:00 07/30/17 09:26 DC 07/30/17 09:12 81 MG Docusate Sodium (coLACE CAP) 100 mg QPM PO 07/29/17 21:00 07/30/17 21:28 DC 07/29/17 22:13 100 MG Famotidine (Pepcid Tab) 20 mg QAM PO 07/29/17 09:00 07/30/17 09:23 DC 07/30/17 09:13 20 MG Levothyroxine Sodium (Synthroid Tab) 25 mcg DAILYBB PO 07/29/17 06:30 08/28/17 06:59 08/12/17 05:15 25 MCG Metoprolol Succinate (Toprol Xl Tab) 100 mg QAM PO 07/29/17 09:00 07/29/17 19:00 DC 07/29/17 08:17 100 MG Pravastatin Sodium (Pravachol Tab) 40 mg HS PO 07/29/17 21:00 08/28/17 20:59 08/11/17 21:21 40 MG Warfarin Sodium (Coumadin Tab) 5 mg DAILY@16 PO 07/29/17 16:00 08/08/17 13:53 DC 08/04/17 16:28 5 MG Enalapril Maleate (Vasotec Tab) 20 mg QAM PO 07/29/17 09:00 07/29/17 19:00 DC 07/29/17 08:16 20 MG Acetaminophen (Tylenol Tab) 650 mg Q4H PRN PO 07/28/17 22:00 08/27/17 21:59 07/30/17 03:11 650 MG Polyethylene (Miralax Powder Packet) 17 gm DAILY PRN PO 07/28/17 22:00 08/27/17 21:59 08/12/17 10:04 17 GM Furosemide 40 mg/ Syringe 4 ml @ 4 mls/min ONE ONCE IV 07/29/17 03:15 07/29/17 03:16 DC 07/29/17 04:32 4 MLS/MIN Ceftriaxone Sodium 1 gm/ Dextrose 50 ml @ 100 mls/hr Q24H IV 07/29/17 08:00 07/29/17 15:57 DC 07/29/17 08:15 100 MLS/HR Albuterol/ Ipratropium (Duoneb) 3 ml QIDR INH 07/29/17 08:00 07/30/17 18:05 DC 07/29/17 16:25 3 ML Furosemide 40 mg/ Syringe 4 ml @ 4 mls/min 1530 ONCE IV 07/29/17 15:30 07/29/17 15:31 DC 07/29/17 15:33 4 MLS/MIN Piperacillin Sod/ Tazobactam Sod 3.375 gm/Dextrose 115 ml @ 28.75 mls/ hr Q8H IV 07/29/17 22:00 08/06/17 11:16 DC 08/06/17 05:28 28.75 MLS/HR Piperacillin Sod/ Tazobactam Sod 4.5 gm/Dextrose 120 ml @ 200 mls/hr NOW STAT IV 07/29/17 16:11 07/29/17 16:46 DC 07/29/17 16:11 200 MLS/HR Vancomycin HCl 2500 mg/Sodium Chloride 550 ml @ 200 mls/hr NOW STAT IV 07/29/17 16:12 07/29/17 18:56 DC 07/29/17 16:53 200 MLS/HR Vancomycin HCl 1500 mg/Sodium Chloride 530 ml @ 200 mls/hr Q12H IV 07/30/17 02:00 07/30/17 12:41 DC 07/30/17 01:17 200 MLS/HR Sodium Chloride 500 ml @ 999 mls/hr NOW STAT IV 07/29/17 19:43 07/29/17 20:13 DC 07/29/17 20:00 999 MLS/HR Dopamine HCl/ Dextrose (DOPamine 400MG / D5W) 400 mg STK-MED ONCE .ROUTE 07/29/17 20:27 07/29/17 20:28 DC 07/29/17 20:34 400 MG Dobutamine HCl 0 ml @ 0 mls/hr Q0M PRN IV 07/30/17 00:08 08/02/17 07:07 DC 07/31/17 22:30 30.7 MLS/HR Norepinephrine Bitartrate 8 mg/ Dextrose 508 ml @ 0 mls/hr Q0M PRN IV 07/30/17 05:05 08/02/17 06:55 DC 07/30/17 17:55 24 MLS/HR Sodium Bicarbonate (Sodium Bicarbonate 8.4% Inj) 150 ml NOW STAT IV 07/30/17 06:19 07/30/17 06:22 DC 07/30/17 06:27 150 ML Miscellaneous (Rapid Sequence Induction Bag) 1 ea STK-MED ONCE N/A 07/30/17 06:21 07/30/17 06:22 DC 07/30/17 06:50 1 EA Furosemide (Lasix Inj) 40 mg STK-MED ONCE .ROUTE 07/30/17 06:45 07/30/17 06:46 DC 07/30/17 06:49 40 MG Furosemide (Lasix Inj) 40 mg STK-MED ONCE .ROUTE 07/30/17 06:45 07/30/17 06:46 DC 07/30/17 06:50 40 MG Midazolam HCl (Versed Inj) 2 mg Q2H PRN IV 07/30/17 08:45 08/02/17 07:07 DC 07/30/17 11:34 2 MG Fentanyl Citrate (Fentanyl Inj) 100 mcg Q2H PRN IV 07/30/17 08:45 08/02/17 07:07 DC 07/30/17 13:55 100 MCG Vasopressin 50 units/Sodium Chloride 502.5 ml @ 24 mls/hr [id number] IV 07/30/17 08:45 08/02/17 06:55 DC 07/31/17 05:46 24 MLS/HR Magnesium Sulfate 1 gm/Prmx 100 ml @ 100 mls/hr Q1H IV 07/30/17 09:00 07/30/17 10:59 DC 07/30/17 10:18 100 MLS/HR Pantoprazole Sodium 40 mg/ Syringe 10 ml @ 5 mls/min DAILY@11 IV 07/30/17 11:00 08/02/17 06:55 DC 08/01/17 10:52 5 MLS/MIN Aspirin (Aspirin Chew) 81 mg QAM PO 07/31/17 09:00 08/30/17 08:59 08/12/17 10:00 81 MG Furosemide 80 mg/ Syringe 8 ml @ 4 mls/min NOW ONCE IV 07/30/17 18:30 07/30/17 18:31 DC 07/30/17 19:20 4 MLS/MIN Docusate Sodium (coLACE SYRUP) 100 mg QPM PO 07/30/17 21:30 08/02/17 02:13 DC 08/01/17 20:57 100 MG Vancomycin HCl 1750 mg/Sodium Chloride 535 ml @ 200 mls/hr Q24H IV 07/31/17 07:15 07/31/17 15:18 DC 07/31/17 07:47 200 MLS/HR Furosemide 40 mg/ Syringe 4 ml @ 4 mls/min ONE ONCE IV 07/31/17 08:45 07/31/17 08:46 DC 07/31/17 09:08 4 MLS/MIN Potassium Phosphate 21 mmol/ Sodium Chloride 507 ml @ 144.857 mls/hr ONE ONCE IV 07/31/17 08:45 07/31/17 12:14 DC 07/31/17 09:07 144.857 MLS/HR Potassium Chloride 20 meq/ Prmx 100 ml @ 50 mls/hr Q2H IV 07/31/17 09:30 07/31/17 13:29 DC 07/31/17 11:35 50 MLS/HR Vancomycin HCl 1500 mg/Sodium Chloride 530 ml @ 200 mls/hr Q24H IV 08/01/17 01:00 08/01/17 10:14 DC 08/01/17 01:18 200 MLS/HR Potassium Chloride 20 meq/ Prmx 100 ml @ 50 mls/hr Q2H IV 08/01/17 09:30 08/01/17 15:29 DC 08/01/17 13:33 50 MLS/HR Furosemide 30 mg/ Syringe 3 ml @ 4 mls/min BID IV 08/01/17 09:00 08/01/17 18:40 DC 08/01/17 09:33 4 MLS/MIN Vancomycin HCl 1500 mg/Sodium Chloride 530 ml @ 200 mls/hr Q18H IV 08/01/17 19:00 08/04/17 06:46 DC 08/03/17 06:14 200 MLS/HR Potassium/ Phosphorus/Sodium (Phospha 250 Neutral 155-852-130 Mg) 1 tab Q4H PO 08/02/17 02:00 08/02/17 10:01 DC 08/02/17 09:43 1 TAB Potassium Chloride (Klor-Con M10) 20 meq Q4H PO 08/02/17 02:00 08/02/17 10:01 DC 08/02/17 07:35 20 MEQ Docusate Sodium (coLACE CAP) 100 mg QPM PO 08/02/17 21:00 09/01/17 20:59 08/11/17 21:21 100 MG Bumetanide (Bumex Tab) 1 mg QAM PO 08/02/17 09:00 08/09/17 14:53 DC 08/09/17 08:44 1 MG Acetazolamide Sodium 500 mg/ Syringe 5 ml @ 5 mls/min BID IV 08/02/17 09:00 08/02/17 21:00 DC 08/02/17 21:32 5 MLS/MIN Heparin Sodium (Porcine) (Heparin 10 Unit/ ml 5 ml Flush) 5 ml PRN PRN FLUSH 08/02/17 18:15 09/01/17 18:14 08/08/17 09:59 5 ML Vancomycin HCl 1500 mg/Sodium Chloride 530 ml @ 200 mls/hr Q24H IV 08/04/17 09:00 08/06/17 11:17 DC 08/06/17 08:32 200 MLS/HR Metoprolol Succinate (Toprol Xl Tab) 50 mg QAM PO 08/05/17 09:00 09/04/17 08:59 08/12/17 10:03 50 MG Metoprolol Succinate (Toprol Xl Tab) 50 mg 1100 ONCE PO 08/04/17 11:00 08/04/17 11:01 DC 08/04/17 11:21 50 MG Furosemide 40 mg/ Syringe 4 ml @ 4 mls/min NOW ONCE IV 08/06/17 09:30 08/06/17 09:31 DC 08/06/17 09:59 4 MLS/MIN Albuterol/ Ipratropium (Duoneb) 3 ml ONE STAT INH 08/06/17 09:04 08/06/17 09:07 DC 08/06/17 09:25 3 ML Cephalexin Monohydrate (Keflex Cap) 500 mg QID PO 08/06/17 13:00 08/08/17 23:59 DC 08/08/17 21:47 500 MG Furosemide 40 mg/ Syringe 4 ml @ 4 mls/min ONE ONCE IV 08/06/17 14:00 08/06/17 14:01 DC 08/06/17 15:48 4 MLS/MIN Albuterol/ Ipratropium (Duoneb) 3 ml Q4RWA INH 08/06/17 20:00 09/05/17 19:59 08/12/17 15:21 3 ML Furosemide 20 mg/ Syringe 2 ml @ 4 mls/min 1830 ONCE IV 08/06/17 18:30 08/06/17 18:31 DC 08/06/17 19:28 4 MLS/MIN Potassium Chloride (Klor-Con M10) 20 meq 0745 ONCE PO 08/07/17 07:45 08/07/17 07:46 DC 08/07/17 09:24 20 MEQ Potassium Chloride (Klor-Con Tab) 20 meq TODAY@0930 ONCE PO 08/07/17 09:30 08/07/17 09:31 DC 08/07/17 09:24 20 MEQ Potassium Chloride (Klor-Con M10) 10 meq TODAY@1200 ONCE PO 08/07/17 12:00 08/07/17 12:01 DC 08/07/17 12:00 10 MEQ Enalapril Maleate (Vasotec Tab) 20 mg QAM PO 08/08/17 09:00 09/07/17 08:59 08/12/17 10:03 20 MG Polyethylene (Miralax Powder Packet) 17 gm NOW ONCE PO 08/08/17 12:30 08/08/17 12:31 DC 08/08/17 13:23 17 GM Bisacodyl (Dulcolax Supp) 10 mg NOW STAT CA 08/08/17 12:16 08/08/17 12:20 DC 08/08/17 14:02 10 MG Warfarin Sodium (Coumadin Tab) 3 mg DAILY@16 PO 08/08/17 16:00 09/07/17 15:59 08/11/17 16:20 3 MG Iron Sucrose 100 mg/Sodium Chloride 105 ml @ 420 mls/hr NOW STAT IV 08/09/17 09:14 08/09/17 09:28 DC 08/09/17 09:51 420 MLS/HR Bumetanide (Bumex Tab) 2 mg QAM PO 08/10/17 09:00 09/01/17 08:59 08/12/17 10:01 2 MG Bumetanide 2 mg/ Syringe 8 ml @ 4 mls/min NOW STAT IV 08/09/17 15:04 08/09/17 15:05 DC 08/09/17 15:34 4 MLS/MIN Bumetanide 1 mg/ Syringe 4 ml @ 4 mls/min TODAY@1515 IV 08/10/17 15:15 08/10/17 16:00 DC 08/10/17 16:04 4 MLS/MIN Bumetanide 1 mg/ Syringe 4 ml @ 4 mls/min NOW ONCE IV 08/11/17 11:30 08/11/17 11:31 DC 08/11/17 12:26 4 MLS/MIN Ferrous Sulfate (Feosol Tab) 325 mg QAM PO 08/12/17 09:00 09/11/17 08:59 08/12/17 10:02 325 MG Polyethylene (Miralax Powder Packet) 17 gm NOW ONCE PO 08/11/17 13:30 08/11/17 13:40 DC 08/11/17 13:50 17 GM Bumetanide 1 mg/ Syringe 4 ml @ 4 mls/min TODAY@1200 ONCE IV 08/12/17 12:00 08/12/17 12:01 DC 08/12/17 13:02 4 MLS/MIN (Judie Rivera CRNP) Objective Vital Signs Date Time Temp Pulse Resp B/P (MAP) Pulse Ox O2 Delivery O2 Flow Rate FiO2 08/12/17 15:44 86 18 95 Nasal Cannula 2.0 08/12/17 12:00 Nasal Cannula 2.0 08/12/17 12:00 Nasal Cannula 2.0 08/12/17 11:27 36.9 98 18 101/64 (76) 98 08/12/17 08:23 37.0 94 18 98/68 (78) 96 08/12/17 08:00 Nasal Cannula 2.0 08/12/17 08:00 Nasal Cannula 2.0 08/12/17 07:23 89 20 95 Nasal Cannula 2.0 08/12/17 04:00 Nasal Cannula 3.0 08/12/17 03:38 36.9 100 19 112/54 (73) 93 Room Air 08/12/17 00:01 Nasal Cannula 3.0 08/11/17 23:40 36.9 100 20 126/57 (80) 93 Nasal Cannula 3.0 08/11/17 20:00 Nasal Cannula 3.0 08/11/17 19:48 37.3 89 18 118/53 (74) 93 Nasal Cannula 3.0 08/11/17 19:22 90 20 98 Nasal Cannula 2.0 (Judie Rivera CRNP) Physical Exam Notes: General: no distress Eyes: normal inspection, PERLL Respiratory: chest non tender, clear to auscultation, normal breath sounds, no respiratory distress, no accessory muscle use Cardiac: regular rate and rhythm, no rub or gallop, systolic murmur, no edema, no jvd GI/: active bowel sounds, no abd pain or tenderness, soft, non distended Extremities: normal range of motion, normal strength, non tender Neuro/Psych: alert and oriented x 3, normal mood and affect Skin: normal color, dry (Judie Rivera CRNP) Laboratory Results Last 24 Hours Test 08/12/17 05:09 Prothrombin Time 22.7 SECONDS Prothromb Time International Ratio 2.2 (Judie Rivera CRNP) Assessment and Plan Mr. Garcia is a 77 year old man here for increased weakness Acute Hypoxic Hypercarbic Respiratory Failure 08/01 Acute on Chronic Systolic CHF and Multifocal Pneumonia/Sepsis/E.faecalis UTI - Patient was intubated on 07/30 and respiratory acidosis improved on subsequent draws and extubated on 08/01 - Pressor support off since 08/01 - Zosyn and Vancomycin discontinued - ID on board - switched to cephalexin - abx course completed - ABGs 08/06 showed hypercapnea/hypoxia - placed on bipap and given IV lasix, nebs - CXR showed pulmonary congestion - put out almost 4L and oxygenation improved - should continue with bipap while sleeping - Daily Bumex was discontinued at [facility] - po bumex regimen has been resumed - Additional 1 mg IV Bumex this afternoon - bps and kidney function tolerating - will increase daily po bumex to bid from daily Anemia - likely anemia of chronic disease as there is no apparent bleeding and MCV is normocytic. INR has been therapeutic since 08/04 - Iron panel was low - given 1 transfusion of iron 08/09, 325 mg iron daily - Transfuse if hgb drops below 7 or patient becomes symptomatic SANTHOSH on CKD Stage III: - resolved - Nephrology following - appreciate recommendations - avoid nephrotoxins and maintain a slight negative fluid balance Hyperkalemia - resolved - potassium was not discontinued when Bumex was discontinue at - trended down Hypokalemia - repleated and resolved CAD S/P CABG; AAA/Aortic Dissection; S/P ICD/Pacer; Acute Systolic CHF; Atrial Fibrillation: Supratherapeutic INR - Has bovine valve - INR goal 2-3 - Amiodarone 200 mg daily, Pravastatin 40 mg daily, and ASA 81 mg daily - Restart Toprol at reduced dosing of 50 mg daily and titrate back to 100 mg daily as tolerated, - Restart NADEEM when bp tolerating - INR supratherapuetic likely due to interactions with other medications vs possible relation to shock/liver? -Coumadin held 08/01 for supratherapeutic INR - INR therapeutic since 08/04 without any coumadin given - restarted 08/08 at reduced dose - check INR am Left arm hematoma 08/01 PICC attempt - improving Weakness - neuro consulted - patient has history of transverse myelitis however Dr. Collins does not feel this is currently an issue. - PT/OT CAD - no evidence of ACS - cont ASA, Statin, B xavier. 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 Dunaway who was consulted - no intervention at this time. Constipation - Miralax DVT proph - Coumadin Full code (Judie Rivera ., [place]) [employer] Physician Supervision Note: I interviewed and examined the patient. Discussed with Judie Rivera NP and agree with findings and plan as documented in the note. Any exceptions or clarifications are listed here: None Patient is encouraged today walked a few steps across the room even sitting in a chair most of the day he continues to be tolerant of diuresis, the patient has had a negative a liter by ins and outs but his body what is stated the same he is in no further chest pain Vital signs show him to 37 pulse 94 respiration rate 18 BP is 98/68 Cardiac exam is distant regular with a systolic murmur lungs are actually fairly clear with only very scant basilar rales which clear with deep breaths extremities are without edema in his left arm is improved greatly Patient had significant issues with ventilatory failure requiring support and pressors from shock he's done remarkably well for continued to diuresis and with eventual eye towards moving to rehabilitation likely later this week we'll continue to increase his Bumex dosing until we see minor renal distress Documented By: Vijay Stack (Vijay Stack M.D.)
[2017-08-12] MEDS: WARFARIN SOD 3 MG TAB PO SCH (16:28)
[2017-08-12] MEDS: PRAVASTATIN SOD 40 MG TAB PO SCH (20:10)
[2017-08-12] MEDS: DOCUSATE SODIUM 100 MG CAP PO SCH (20:10)
[2017-08-12] MEDS ORDERED: BUMETANIDE 1 MG TAB PO SCH (21:00)
[2017-08-13] VITALS (12 sets, daily range): BP systolic 86–122; BP diastolic 50–68; PULSE 77–87; TEMP 36.5–37.1; O2SAT 92–96
[2017-08-13] MEDS: LEVOTHYROXINE 25 MCG TAB PO SCH (05:31)
[2017-08-13 05:53] LABS: HEMATOCRIT 26.9 % (42-52); HEMOGLOBIN 7.8 g/dL (14.0-18.0); MEAN CELL VOLUME 90.3 fL (80-100); MEAN CORPUSCULAR HEMOGLOBIN 26.2 pg (25-34); MEAN PLATELET VOLUME 10.6 fL (7.4-10.4); PLATELET COUNT 230 K/uL (130-400); RED CELL DISTRIBUTION WIDTH CV 18.9 % (11.5-14.5); WHITE BLOOD COUNT 7.63 K/uL (4.8-10.8)
[2017-08-13 06:28] LABS: CALCIUM 8.3 mg/dl (8.5-10.1); CREATININE 1.02 mg/dl (0.60-1.40); INR 2.4 (0.9-1.1); POTASSIUM 3.7 mmol/L (3.5-5.1)
[2017-08-13] MEDS: ALBUT/IPRATROP 3MG/0.5MG NEB 3 ML VIAL INH SCH ×4 (08:37→19:25)
[2017-08-13] MEDS: BUMETANIDE 1 MG TAB PO SCH ×2 (08:51→20:40)
[2017-08-13] MEDS: AMIODARONE 200 MG TAB PO SCH (08:51)
[2017-08-13] MEDS: METOPROLOL SUCC 50MG EXT REL TAB PO SCH (08:52)
[2017-08-13] MEDS: FERROUS SULFATE 325 MG TAB PO SCH (08:52)
[2017-08-13] MEDS: ASCORBIC ACID 500 MG TAB PO SCH (08:53)
[2017-08-13] MEDS: ENALAPRIL MALEATE 10 MG TAB PO SCH (08:53)
[2017-08-13] MEDS: ASPIRIN 81 MG CHEW PO SCH (08:54)
[2017-08-13] MEDS: POLYETHYLENE (MIRALAX) 17 GM PACK PO PRN (08:55)
--- NOTE | 2017-08-13 13:43 | Hospitalist Progress Note ---
Hospitalist Progress Note Date of Service Aug 13, 2017. (Judie Rivera .[place]) Subjective Pt evaluation today including: conversation w/ patient, conversation w/ family , physical exam, chart review, lab review, review of inpatient medication list Voiding: no voiding problems Mr. Garcia continues to improve slowly. He has been working with therapy and ambulating with them around his room. He is on 2L NC ROS Constitutional: no chills, aches, sweats or fever Respiratory: no sob,cough, sputum, or wheezing Cardiac: no chest pain, palpitations, edema, orthopnea or lightheadedness GI: no abdominal pain, nausea, vomiting, diarrhea or constipation : no dysuria or hesitancy Extremities: no joint pain or weakness Skin: no rash All other systems reviewed and negative (Judie Rivera CRNP) Medications Medications Administered Medications (Trade) Dose Ordered Sig/Deion Route Start Time Stop Time Status Last Admin Dose Admin Sodium Chloride 1,000 ml @ 999 mls/hr Q1H1M STAT IV 07/28/17 19:54 07/28/17 20:54 DC 07/28/17 19:54 999 MLS/HR Cefepime HCl 1000 mg/Dextrose 111 ml @ 200 mls/hr NOW STAT IV 07/28/17 21:20 07/28/17 21:53 DC 07/28/17 21:52 200 MLS/HR Levofloxacin (Levaquin / D5W) 750 mg NOW STAT IV 07/28/17 21:20 07/28/17 21:22 DC 07/28/17 22:13 750 MG Amiodarone HCl (Cordarone Tab) 200 mg QAM PO 07/29/17 09:00 08/28/17 08:59 08/13/17 08:51 200 MG Ascorbic Acid (Vitamin C Tab) 500 mg QAM PO 07/29/17 09:00 08/28/17 08:59 08/13/17 08:53 500 MG Aspirin (Ecotrin Tab) 81 mg QAM PO 07/29/17 09:00 07/30/17 09:26 DC 07/30/17 09:12 81 MG Docusate Sodium (coLACE CAP) 100 mg QPM PO 07/29/17 21:00 07/30/17 21:28 DC 07/29/17 22:13 100 MG Famotidine (Pepcid Tab) 20 mg QAM PO 07/29/17 09:00 07/30/17 09:23 DC 07/30/17 09:13 20 MG Levothyroxine Sodium (Synthroid Tab) 25 mcg DAILYBB PO 07/29/17 06:30 08/28/17 06:59 08/13/17 05:31 25 MCG Metoprolol Succinate (Toprol Xl Tab) 100 mg QAM PO 07/29/17 09:00 07/29/17 19:00 DC 07/29/17 08:17 100 MG Pravastatin Sodium (Pravachol Tab) 40 mg HS PO 07/29/17 21:00 08/28/17 20:59 08/12/17 20:10 40 MG Warfarin Sodium (Coumadin Tab) 5 mg DAILY@16 PO 07/29/17 16:00 08/08/17 13:53 DC 08/04/17 16:28 5 MG Enalapril Maleate (Vasotec Tab) 20 mg QAM PO 07/29/17 09:00 07/29/17 19:00 DC 07/29/17 08:16 20 MG Acetaminophen (Tylenol Tab) 650 mg Q4H PRN PO 07/28/17 22:00 08/27/17 21:59 07/30/17 03:11 650 MG Polyethylene (Miralax Powder Packet) 17 gm DAILY PRN PO 07/28/17 22:00 08/27/17 21:59 08/13/17 08:55 17 GM Furosemide 40 mg/ Syringe 4 ml @ 4 mls/min ONE ONCE IV 07/29/17 03:15 07/29/17 03:16 DC 07/29/17 04:32 4 MLS/MIN Ceftriaxone Sodium 1 gm/ Dextrose 50 ml @ 100 mls/hr Q24H IV 07/29/17 08:00 07/29/17 15:57 DC 07/29/17 08:15 100 MLS/HR Albuterol/ Ipratropium (Duoneb) 3 ml QIDR INH 07/29/17 08:00 07/30/17 18:05 DC 07/29/17 16:25 3 ML Furosemide 40 mg/ Syringe 4 ml @ 4 mls/min 1530 ONCE IV 07/29/17 15:30 07/29/17 15:31 DC 07/29/17 15:33 4 MLS/MIN Piperacillin Sod/ Tazobactam Sod 3.375 gm/Dextrose 115 ml @ 28.75 mls/ hr Q8H IV 07/29/17 22:00 08/06/17 11:16 DC 08/06/17 05:28 28.75 MLS/HR Piperacillin Sod/ Tazobactam Sod 4.5 gm/Dextrose 120 ml @ 200 mls/hr NOW STAT IV 07/29/17 16:11 07/29/17 16:46 DC 07/29/17 16:11 200 MLS/HR Vancomycin HCl 2500 mg/Sodium Chloride 550 ml @ 200 mls/hr NOW STAT IV 07/29/17 16:12 07/29/17 18:56 DC 07/29/17 16:53 200 MLS/HR Vancomycin HCl 1500 mg/Sodium Chloride 530 ml @ 200 mls/hr Q12H IV 07/30/17 02:00 07/30/17 12:41 DC 07/30/17 01:17 200 MLS/HR Sodium Chloride 500 ml @ 999 mls/hr NOW STAT IV 07/29/17 19:43 07/29/17 20:13 DC 07/29/17 20:00 999 MLS/HR Dopamine HCl/ Dextrose (DOPamine 400MG / D5W) 400 mg STK-MED ONCE .ROUTE 07/29/17 20:27 07/29/17 20:28 DC 07/29/17 20:34 400 MG Dobutamine HCl 0 ml @ 0 mls/hr Q0M PRN IV 07/30/17 00:08 08/02/17 07:07 DC 07/31/17 22:30 30.7 MLS/HR Norepinephrine Bitartrate 8 mg/ Dextrose 508 ml @ 0 mls/hr Q0M PRN IV 07/30/17 05:05 08/02/17 06:55 DC 07/30/17 17:55 24 MLS/HR Sodium Bicarbonate (Sodium Bicarbonate 8.4% Inj) 150 ml NOW STAT IV 07/30/17 06:19 07/30/17 06:22 DC 07/30/17 06:27 150 ML Miscellaneous (Rapid Sequence Induction Bag) 1 ea STK-MED ONCE N/A 07/30/17 06:21 07/30/17 06:22 DC 07/30/17 06:50 1 EA Furosemide (Lasix Inj) 40 mg STK-MED ONCE .ROUTE 07/30/17 06:45 07/30/17 06:46 DC 07/30/17 06:49 40 MG Furosemide (Lasix Inj) 40 mg STK-MED ONCE .ROUTE 07/30/17 06:45 07/30/17 06:46 DC 07/30/17 06:50 40 MG Midazolam HCl (Versed Inj) 2 mg Q2H PRN IV 07/30/17 08:45 08/02/17 07:07 DC 07/30/17 11:34 2 MG Fentanyl Citrate (Fentanyl Inj) 100 mcg Q2H PRN IV 07/30/17 08:45 08/02/17 07:07 DC 07/30/17 13:55 100 MCG Vasopressin 50 units/Sodium Chloride 502.5 ml @ 24 mls/hr [id number] IV 07/30/17 08:45 08/02/17 06:55 DC 07/31/17 05:46 24 MLS/HR Magnesium Sulfate 1 gm/Prmx 100 ml @ 100 mls/hr Q1H IV 07/30/17 09:00 07/30/17 10:59 DC 07/30/17 10:18 100 MLS/HR Pantoprazole Sodium 40 mg/ Syringe 10 ml @ 5 mls/min DAILY@11 IV 07/30/17 11:00 08/02/17 06:55 DC 08/01/17 10:52 5 MLS/MIN Aspirin (Aspirin Chew) 81 mg QAM PO 07/31/17 09:00 08/30/17 08:59 08/13/17 08:54 81 MG Furosemide 80 mg/ Syringe 8 ml @ 4 mls/min NOW ONCE IV 07/30/17 18:30 07/30/17 18:31 DC 07/30/17 19:20 4 MLS/MIN Docusate Sodium (coLACE SYRUP) 100 mg QPM PO 07/30/17 21:30 08/02/17 02:13 DC 08/01/17 20:57 100 MG Vancomycin HCl 1750 mg/Sodium Chloride 535 ml @ 200 mls/hr Q24H IV 07/31/17 07:15 07/31/17 15:18 DC 07/31/17 07:47 200 MLS/HR Furosemide 40 mg/ Syringe 4 ml @ 4 mls/min ONE ONCE IV 07/31/17 08:45 07/31/17 08:46 DC 07/31/17 09:08 4 MLS/MIN Potassium Phosphate 21 mmol/ Sodium Chloride 507 ml @ 144.857 mls/hr ONE ONCE IV 07/31/17 08:45 07/31/17 12:14 DC 07/31/17 09:07 144.857 MLS/HR Potassium Chloride 20 meq/ Prmx 100 ml @ 50 mls/hr Q2H IV 07/31/17 09:30 07/31/17 13:29 DC 07/31/17 11:35 50 MLS/HR Vancomycin HCl 1500 mg/Sodium Chloride 530 ml @ 200 mls/hr Q24H IV 08/01/17 01:00 08/01/17 10:14 DC 08/01/17 01:18 200 MLS/HR Potassium Chloride 20 meq/ Prmx 100 ml @ 50 mls/hr Q2H IV 08/01/17 09:30 08/01/17 15:29 DC 08/01/17 13:33 50 MLS/HR Furosemide 30 mg/ Syringe 3 ml @ 4 mls/min BID IV 08/01/17 09:00 08/01/17 18:40 DC 08/01/17 09:33 4 MLS/MIN Vancomycin HCl 1500 mg/Sodium Chloride 530 ml @ 200 mls/hr Q18H IV 08/01/17 19:00 08/04/17 06:46 DC 08/03/17 06:14 200 MLS/HR Potassium/ Phosphorus/Sodium (Phospha 250 Neutral 155-852-130 Mg) 1 tab Q4H PO 08/02/17 02:00 08/02/17 10:01 DC 08/02/17 09:43 1 TAB Potassium Chloride (Klor-Con M10) 20 meq Q4H PO 08/02/17 02:00 08/02/17 10:01 DC 08/02/17 07:35 20 MEQ Docusate Sodium (coLACE CAP) 100 mg QPM PO 08/02/17 21:00 09/01/17 20:59 08/12/17 20:10 100 MG Bumetanide (Bumex Tab) 1 mg QAM PO 08/02/17 09:00 08/09/17 14:53 DC 08/09/17 08:44 1 MG Acetazolamide Sodium 500 mg/ Syringe 5 ml @ 5 mls/min BID IV 08/02/17 09:00 08/02/17 21:00 DC 08/02/17 21:32 5 MLS/MIN Heparin Sodium (Porcine) (Heparin 10 Unit/ ml 5 ml Flush) 5 ml PRN PRN FLUSH 08/02/17 18:15 09/01/17 18:14 08/08/17 09:59 5 ML Vancomycin HCl 1500 mg/Sodium Chloride 530 ml @ 200 mls/hr Q24H IV 08/04/17 09:00 08/06/17 11:17 DC 08/06/17 08:32 200 MLS/HR Metoprolol Succinate (Toprol Xl Tab) 50 mg QAM PO 08/05/17 09:00 09/04/17 08:59 08/13/17 08:52 50 MG Metoprolol Succinate (Toprol Xl Tab) 50 mg 1100 ONCE PO 08/04/17 11:00 08/04/17 11:01 DC 08/04/17 11:21 50 MG Furosemide 40 mg/ Syringe 4 ml @ 4 mls/min NOW ONCE IV 08/06/17 09:30 08/06/17 09:31 DC 08/06/17 09:59 4 MLS/MIN Albuterol/ Ipratropium (Duoneb) 3 ml ONE STAT INH 08/06/17 09:04 08/06/17 09:07 DC 08/06/17 09:25 3 ML Cephalexin Monohydrate (Keflex Cap) 500 mg QID PO 08/06/17 13:00 08/08/17 23:59 DC 08/08/17 21:47 500 MG Furosemide 40 mg/ Syringe 4 ml @ 4 mls/min ONE ONCE IV 08/06/17 14:00 08/06/17 14:01 DC 08/06/17 15:48 4 MLS/MIN Albuterol/ Ipratropium (Duoneb) 3 ml Q4RWA INH 08/06/17 20:00 09/05/17 19:59 08/13/17 11:27 3 ML Furosemide 20 mg/ Syringe 2 ml @ 4 mls/min 1830 ONCE IV 08/06/17 18:30 08/06/17 18:31 DC 08/06/17 19:28 4 MLS/MIN Potassium Chloride (Klor-Con M10) 20 meq 0745 ONCE PO 08/07/17 07:45 08/07/17 07:46 DC 08/07/17 09:24 20 MEQ Potassium Chloride (Klor-Con Tab) 20 meq TODAY@0930 ONCE PO 08/07/17 09:30 08/07/17 09:31 DC 08/07/17 09:24 20 MEQ Potassium Chloride (Klor-Con M10) 10 meq TODAY@1200 ONCE PO 08/07/17 12:00 08/07/17 12:01 DC 08/07/17 12:00 10 MEQ Enalapril Maleate (Vasotec Tab) 20 mg QAM PO 08/08/17 09:00 09/07/17 08:59 08/13/17 08:53 20 MG Polyethylene (Miralax Powder Packet) 17 gm NOW ONCE PO 08/08/17 12:30 08/08/17 12:31 DC 08/08/17 13:23 17 GM Bisacodyl (Dulcolax Supp) 10 mg NOW STAT OK 08/08/17 12:16 08/08/17 12:20 DC 08/08/17 14:02 10 MG Warfarin Sodium (Coumadin Tab) 3 mg DAILY@16 PO 08/08/17 16:00 09/07/17 15:59 08/12/17 16:28 3 MG Iron Sucrose 100 mg/Sodium Chloride 105 ml @ 420 mls/hr NOW STAT IV 08/09/17 09:14 08/09/17 09:28 DC 08/09/17 09:51 420 MLS/HR Bumetanide (Bumex Tab) 2 mg QAM PO 08/10/17 09:00 08/12/17 16:06 DC 08/12/17 10:01 2 MG Bumetanide 2 mg/ Syringe 8 ml @ 4 mls/min NOW STAT IV 08/09/17 15:04 08/09/17 15:05 DC 08/09/17 15:34 4 MLS/MIN Bumetanide 1 mg/ Syringe 4 ml @ 4 mls/min TODAY@1515 IV 08/10/17 15:15 08/10/17 16:00 DC 08/10/17 16:04 4 MLS/MIN Bumetanide 1 mg/ Syringe 4 ml @ 4 mls/min NOW ONCE IV 08/11/17 11:30 08/11/17 11:31 DC 08/11/17 12:26 4 MLS/MIN Ferrous Sulfate (Feosol Tab) 325 mg QAM PO 08/12/17 09:00 09/11/17 08:59 08/13/17 08:52 325 MG Polyethylene (Miralax Powder Packet) 17 gm NOW ONCE PO 08/11/17 13:30 08/11/17 13:40 DC 08/11/17 13:50 17 GM Bisacodyl (Dulcolax Supp) 10 mg DAILY PRN OK 08/11/17 13:45 09/10/17 13:44 08/13/17 08:56 10 MG Bumetanide 1 mg/ Syringe 4 ml @ 4 mls/min TODAY@1200 ONCE IV 08/12/17 12:00 08/12/17 12:01 DC 08/12/17 13:02 4 MLS/MIN Bumetanide (Bumex Tab) 2 mg BID PO 08/13/17 09:00 09/01/17 08:59 08/13/17 08:51 2 MG (Judie Rivera, [place]) Objective Vital Signs Date Time Temp Pulse Resp B/P (MAP) Pulse Ox O2 Delivery O2 Flow Rate FiO2 08/13/17 11:49 36.9 77 18 122/68 (86) 96 08/13/17 11:27 77 18 93 Nasal Cannula 2.0 08/13/17 09:39 Nasal Cannula 2.0 08/13/17 08:14 36.8 79 28 115/63 (80) 93 08/13/17 04:00 Nasal Cannula 2.0 08/13/17 03:40 36.8 84 23 115/55 (75) 94 Nasal Cannula 2.0 08/13/17 00:25 36.6 84 20 107/50 (69) 94 Nasal Cannula 2.0 08/12/17 23:59 Nasal Cannula 2.0 08/12/17 20:00 Nasal Cannula 2.0 08/12/17 19:42 37.2 85 27 122/57 (78) 94 Nasal Cannula 2.0 08/12/17 19:27 85 20 94 Nasal Cannula 3.0 08/12/17 16:01 36.3 89 24 114/51 (72) 92 Nasal Cannula 2.0 08/12/17 16:00 Nasal Cannula 2.0 08/12/17 16:00 92 Nasal Cannula 2.0 08/12/17 15:44 86 18 95 Nasal Cannula 2.0 (Judie Rivera CRNP) Physical Exam Notes: General: no distress Eyes: normal inspection, PERLL Respiratory: chest non tender, clear to auscultation, normal breath sounds, no respiratory distress, no accessory muscle use Cardiac: regular rate and rhythm, no rub or gallop, systolic murmur, no edema, no jvd GI/: active bowel sounds, no abd pain or tenderness, soft, non distended Extremities: normal range of motion, normal strength, non tender Neuro/Psych: alert and oriented x 3, normal mood and affect Skin: normal color, dry (Judie Rivera CRNP) Laboratory Results Last 24 Hours Test 08/13/17 05:43 White Blood Count 7.63 K/uL Red Blood Count 2.98 M/uL Hemoglobin 7.8 g/dL Hematocrit 26.9 % Mean Corpuscular Volume 90.3 fL Mean Corpuscular Hemoglobin 26.2 pg Mean Corpuscular Hemoglobin Concent 29.0 g/dl RDW Standard Deviation 62.0 fL RDW Coefficient of Variation 18.9 % Platelet Count 230 K/uL Mean Platelet Volume 10.6 fL Prothrombin Time 25.2 SECONDS Prothromb Time International Ratio 2.4 Sodium Level 140 mmol/L Potassium Level 3.7 mmol/L Chloride Level 98 mmol/L Carbon Dioxide Level 38 mmol/L Anion Gap 4.0 mmol/L Blood Urea Nitrogen 21 mg/dl Creatinine 1.02 mg/dl Est Creatinine Clear Calc Drug Dose 66.6 ml/min Estimated GFR () 81.8 Estimated GFR (Non- 70.6 BUN/Creatinine Ratio 20.2 Random Glucose 91 mg/dl Calcium Level 8.3 mg/dl Magnesium Level 2.0 mg/dl (Judie Rivera CRNP) Assessment and Plan Mr. Garcia is a 77 year old man here for increased weakness Acute Hypoxic Hypercarbic Respiratory Failure 2/2 Acute on Chronic Systolic CHF and Multifocal Pneumonia/Sepsis/E.faecalis UTI - Patient was intubated on 07/30 and respiratory acidosis improved on subsequent draws and extubated on 08/01 - Pressor support off since 08/01 - Zosyn and Vancomycin discontinued - ID on board - switched to cephalexin - abx course completed - ABGs 08/06 showed hypercapnea/hypoxia - placed on bipap and given IV lasix, nebs - CXR showed pulmonary congestion - put out almost 4L and oxygenation improved - should continue with bipap while sleeping - Daily Bumex was discontinued at [facility] - po bumex regimen has been resumed - Additional 1 mg IV Bumex this afternoon - bps and kidney function tolerating - will increase daily po bumex to bid from daily - DC suggs catheter Anemia - likely anemia of chronic disease as there is no apparent bleeding and MCV is normocytic. INR has been therapeutic since 08/04 - Iron panel was low - given 1 transfusion of iron 08/09, 325 mg iron daily - Transfuse if hgb drops below 7 or patient becomes symptomatic SANTHOSH on CKD Stage III: - resolved - Nephrology following - appreciate recommendations - avoid nephrotoxins and maintain a slight negative fluid balance Hyperkalemia - resolved - potassium was not discontinued when Bumex was discontinue at - trended down Hypokalemia - repleated and resolved CAD S/P CABG; AAA/Aortic Dissection; S/P ICD/Pacer; Acute Systolic CHF; Atrial Fibrillation: Supratherapeutic INR - Has bovine valve - INR goal 2-3 - Amiodarone 200 mg daily, Pravastatin 40 mg daily, and ASA 81 mg daily - Restarted Toprol at reduced dosing of 50 mg daily and titrate back to 100 mg daily as tolerated - with increase in diuretic, has been unable to tolerate an increase in bb -Continue Vasotec - INR supratherapuetic likely due to interactions with other medications vs possible relation to shock/liver? -Coumadin held 08/01 for supratherapeutic INR - INR therapeutic since 08/04 without any coumadin given - restarted 08/08 at reduced dose - check INR am Left arm hematoma 08/01 PICC attempt - improving Weakness - neuro consulted - patient has history of transverse myelitis however Dr. Collins does not feel this is currently an issue. - PT/OT CAD - no evidence of ACS - cont ASA, Statin, B xavier. 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 Dunaway who was consulted - no intervention at this time. Constipation - Miralax DVT proph - Coumadin Full code (Judie Rivera ., [place]) GLOBAL TECHNICAL WRITER Physician Supervision Note: I interviewed and examined the patient. Discussed with Judie Rivera GLOBAL TECHNICAL WRITER and agree with findings and plan as documented in the note. Any exceptions or clarifications are listed here: None Patient is doing better every day slightly fatigued today continue have some good diuresis she is looking for to rehabilitation family is at the bedside Vital signs showed temperature 36 a pulse is 79 respiration rate slightly elevated and blood pressure 115/63 Cardiac exam is regular with a systolic murmur lungs are clear she does have a decubitus ulcer at the apex of his gluteal fold this is 2-3 Patient continues to improve with acute on chronic systolic heart failure with continued diuresis paying attention to his renal function eventual disposition for rehabilitation next few days Documented By: Vijay Stack (Vijay Stack M.D.)
[2017-08-13] MEDS: WARFARIN SOD 3 MG TAB PO SCH (16:10)
[2017-08-13] MEDS: DOCUSATE SODIUM 100 MG CAP PO SCH (20:40)
[2017-08-13] MEDS: PRAVASTATIN SOD 40 MG TAB PO SCH (20:40)
[2017-08-14] VITALS (7 sets, daily range): BP systolic 104–122; BP diastolic 60–81; PULSE 62–86; TEMP 36.6–36.7; O2SAT 85–98
[2017-08-14] MEDS: LEVOTHYROXINE 25 MCG TAB PO SCH (04:51)
[2017-08-14 06:17] LABS: INR 2.5 (0.9-1.1)
[2017-08-14] MEDS: ALBUT/IPRATROP 3MG/0.5MG NEB 3 ML VIAL INH SCH ×2 (07:32→12:00)
[2017-08-14] MEDS: AMIODARONE 200 MG TAB PO SCH (08:33)
[2017-08-14] MEDS: BUMETANIDE 1 MG TAB PO SCH ×2 (08:33→21:39)
[2017-08-14] MEDS: ENALAPRIL MALEATE 10 MG TAB PO SCH (08:34)
[2017-08-14] MEDS: METOPROLOL SUCC 50MG EXT REL TAB PO SCH (08:34)
[2017-08-14] MEDS: FERROUS SULFATE 325 MG TAB PO SCH (08:34)
[2017-08-14] MEDS: ASCORBIC ACID 500 MG TAB PO SCH (08:34)
[2017-08-14] MEDS ORDERED: SODIUM CHLORIDE 0.65% NA SOLN 45 ML (OCEAN) ONE (12:12)
[2017-08-14] MEDS: ASPIRIN 81 MG CHEW PO SCH (12:15)
[2017-08-14] MEDS ORDERED: FRRS300 PO (12:49)
[2017-08-14] MEDS ORDERED: TPRSR50 PO (12:49)
[2017-08-14] MEDS ORDERED: CMD3 PO (12:49)
[2017-08-14] MEDS ORDERED: BMX1 PO (12:49)
--- NOTE | 2017-08-14 12:57 | Discharge Instructions ---
Discharge Instructions Date of Service Aug 14, 2017. Admission Reason for Admission: Hyperkalemia, Le Weakness Discharge Discharge Diagnosis / Problem: CHF exacerbation with hypoxic and hypercarbic respiratory failure Discharge Goals Goal(s): Improve function, Improve disease control Activity Recommendations Activity Level: Assistance Required Therapies: Physical Therapy, Occupational Therapy . 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 Garcia follow up with wound care about his sacral ulcers, he will also need to follow up with nephrology concerning renal mass. Will need to have INR monitored as patient is on Warfarin - he has not needed a dose adjustment since 08/08 Current Hospital Diet Patient's current hospital diet: AHA Diet (Heart Healthy) Discharge Diet Recommended Diet: AHA Diet (Heart Healthy) Procedures Procedures Performed: Multiple chest xrays Abd/pelvis CT KUB Pending Studies Studies pending at discharge: no Physician Orders On Transfer Weigh: daily POLST Discussion: without POLST completion Medical Emergencies . Who to Call and When: Medical Emergencies: If at any time you feel your situation is an emergency, please call 911 immediately. . Non-Emergent Contact Non-Emergency issues call your: Primary Care Provider Call Non-Emergent contact if: you have a fever, you have any medication questions . Past History Medical & Surgical History: (1) Anemia of chronic disease (2) A-fib (3) HTN (hypertension) (4) Lumbar back pain (5) Lower extremity weakness (6) Acute respiratory failure with hypoxia and hypercapnia (7) Acute on chronic renal insufficiency (8) Acute on chronic systolic CHF (congestive heart failure) . "Provider Documentation" section prepared by Judie Rivera. . Core Measure Problem Core Measures: None
--- NOTE | 2017-08-14 13:35 | Hospitalist Progress Note ---
Hospitalist Progress Note Date of Service Aug 14, 2017. (Judie Rivera .[place]) Subjective Pt evaluation today including: conversation w/ patient, physical exam, chart review, lab review, review of inpatient medication list Voiding: no voiding problems Mr. Garcia has no complaints this morning. Denies cough or sob or chest pain. He was off oxygen when I arrived to the room and when pulse ox was checked he was 83%, returned to 2L NC and increased to mid 90s%. Asymptomatic with decreased pulse ox ROS Constitutional: no chills, aches, sweats or fever Respiratory: no sob,cough, sputum, or wheezing Cardiac: no chest pain, palpitations, edema, orthopnea or lightheadedness GI: no abdominal pain, nausea, vomiting, diarrhea or constipation : no dysuria or hesitancy Extremities: no joint pain or weakness Skin: no rash All other systems reviewed and negative (Judie Rivera CRNP) Medications Medications Administered Medications (Trade) Dose Ordered Sig/Deion Route Start Time Stop Time Status Last Admin Dose Admin Sodium Chloride 1,000 ml @ 999 mls/hr Q1H1M STAT IV 07/28/17 19:54 07/28/17 20:54 DC 07/28/17 19:54 999 MLS/HR Cefepime HCl 1000 mg/Dextrose 111 ml @ 200 mls/hr NOW STAT IV 07/28/17 21:20 07/28/17 21:53 DC 07/28/17 21:52 200 MLS/HR Levofloxacin (Levaquin / D5W) 750 mg NOW STAT IV 07/28/17 21:20 07/28/17 21:22 DC 07/28/17 22:13 750 MG Amiodarone HCl (Cordarone Tab) 200 mg QAM PO 07/29/17 09:00 08/28/17 08:59 08/14/17 08:33 200 MG Ascorbic Acid (Vitamin C Tab) 500 mg QAM PO 07/29/17 09:00 08/28/17 08:59 08/14/17 08:34 500 MG Aspirin (Ecotrin Tab) 81 mg QAM PO 07/29/17 09:00 07/30/17 09:26 DC 07/30/17 09:12 81 MG Docusate Sodium (coLACE CAP) 100 mg QPM PO 07/29/17 21:00 07/30/17 21:28 DC 07/29/17 22:13 100 MG Famotidine (Pepcid Tab) 20 mg QAM PO 07/29/17 09:00 07/30/17 09:23 DC 07/30/17 09:13 20 MG Levothyroxine Sodium (Synthroid Tab) 25 mcg DAILYBB PO 07/29/17 06:30 08/28/17 06:59 08/14/17 04:51 25 MCG Metoprolol Succinate (Toprol Xl Tab) 100 mg QAM PO 07/29/17 09:00 07/29/17 19:00 DC 07/29/17 08:17 100 MG Pravastatin Sodium (Pravachol Tab) 40 mg HS PO 07/29/17 21:00 08/28/17 20:59 08/13/17 20:40 40 MG Warfarin Sodium (Coumadin Tab) 5 mg DAILY@16 PO 07/29/17 16:00 08/08/17 13:53 DC 08/04/17 16:28 5 MG Enalapril Maleate (Vasotec Tab) 20 mg QAM PO 07/29/17 09:00 07/29/17 19:00 DC 07/29/17 08:16 20 MG Acetaminophen (Tylenol Tab) 650 mg Q4H PRN PO 07/28/17 22:00 08/27/17 21:59 07/30/17 03:11 650 MG Polyethylene (Miralax Powder Packet) 17 gm DAILY PRN PO 07/28/17 22:00 08/27/17 21:59 08/13/17 08:55 17 GM Furosemide 40 mg/ Syringe 4 ml @ 4 mls/min ONE ONCE IV 07/29/17 03:15 07/29/17 03:16 DC 07/29/17 04:32 4 MLS/MIN Ceftriaxone Sodium 1 gm/ Dextrose 50 ml @ 100 mls/hr Q24H IV 07/29/17 08:00 07/29/17 15:57 DC 07/29/17 08:15 100 MLS/HR Albuterol/ Ipratropium (Duoneb) 3 ml QIDR INH 07/29/17 08:00 07/30/17 18:05 DC 07/29/17 16:25 3 ML Furosemide 40 mg/ Syringe 4 ml @ 4 mls/min 1530 ONCE IV 07/29/17 15:30 07/29/17 15:31 DC 07/29/17 15:33 4 MLS/MIN Piperacillin Sod/ Tazobactam Sod 3.375 gm/Dextrose 115 ml @ 28.75 mls/ hr Q8H IV 07/29/17 22:00 08/06/17 11:16 DC 08/06/17 05:28 28.75 MLS/HR Piperacillin Sod/ Tazobactam Sod 4.5 gm/Dextrose 120 ml @ 200 mls/hr NOW STAT IV 07/29/17 16:11 07/29/17 16:46 DC 07/29/17 16:11 200 MLS/HR Vancomycin HCl 2500 mg/Sodium Chloride 550 ml @ 200 mls/hr NOW STAT IV 07/29/17 16:12 07/29/17 18:56 DC 07/29/17 16:53 200 MLS/HR Vancomycin HCl 1500 mg/Sodium Chloride 530 ml @ 200 mls/hr Q12H IV 07/30/17 02:00 07/30/17 12:41 DC 07/30/17 01:17 200 MLS/HR Sodium Chloride 500 ml @ 999 mls/hr NOW STAT IV 07/29/17 19:43 07/29/17 20:13 DC 07/29/17 20:00 999 MLS/HR Dopamine HCl/ Dextrose (DOPamine 400MG / D5W) 400 mg STK-MED ONCE .ROUTE 07/29/17 20:27 07/29/17 20:28 DC 07/29/17 20:34 400 MG Dobutamine HCl 0 ml @ 0 mls/hr Q0M PRN IV 07/30/17 00:08 08/02/17 07:07 DC 07/31/17 22:30 30.7 MLS/HR Norepinephrine Bitartrate 8 mg/ Dextrose 508 ml @ 0 mls/hr Q0M PRN IV 07/30/17 05:05 08/02/17 06:55 DC 07/30/17 17:55 24 MLS/HR Sodium Bicarbonate (Sodium Bicarbonate 8.4% Inj) 150 ml NOW STAT IV 07/30/17 06:19 07/30/17 06:22 DC 07/30/17 06:27 150 ML Miscellaneous (Rapid Sequence Induction Bag) 1 ea STK-MED ONCE N/A 07/30/17 06:21 07/30/17 06:22 DC 07/30/17 06:50 1 EA Furosemide (Lasix Inj) 40 mg STK-MED ONCE .ROUTE 07/30/17 06:45 07/30/17 06:46 DC 07/30/17 06:49 40 MG Furosemide (Lasix Inj) 40 mg STK-MED ONCE .ROUTE 07/30/17 06:45 07/30/17 06:46 DC 07/30/17 06:50 40 MG Midazolam HCl (Versed Inj) 2 mg Q2H PRN IV 07/30/17 08:45 08/02/17 07:07 DC 07/30/17 11:34 2 MG Fentanyl Citrate (Fentanyl Inj) 100 mcg Q2H PRN IV 07/30/17 08:45 08/02/17 07:07 DC 07/30/17 13:55 100 MCG Vasopressin 50 units/Sodium Chloride 502.5 ml @ 24 mls/hr [id number] IV 07/30/17 08:45 08/02/17 06:55 DC 07/31/17 05:46 24 MLS/HR Magnesium Sulfate 1 gm/Prmx 100 ml @ 100 mls/hr Q1H IV 07/30/17 09:00 07/30/17 10:59 DC 07/30/17 10:18 100 MLS/HR Pantoprazole Sodium 40 mg/ Syringe 10 ml @ 5 mls/min DAILY@11 IV 07/30/17 11:00 08/02/17 06:55 DC 08/01/17 10:52 5 MLS/MIN Aspirin (Aspirin Chew) 81 mg QAM PO 07/31/17 09:00 08/30/17 08:59 08/14/17 12:15 81 MG Furosemide 80 mg/ Syringe 8 ml @ 4 mls/min NOW ONCE IV 07/30/17 18:30 07/30/17 18:31 DC 07/30/17 19:20 4 MLS/MIN Docusate Sodium (coLACE SYRUP) 100 mg QPM PO 07/30/17 21:30 08/02/17 02:13 DC 08/01/17 20:57 100 MG Vancomycin HCl 1750 mg/Sodium Chloride 535 ml @ 200 mls/hr Q24H IV 07/31/17 07:15 07/31/17 15:18 DC 07/31/17 07:47 200 MLS/HR Furosemide 40 mg/ Syringe 4 ml @ 4 mls/min ONE ONCE IV 07/31/17 08:45 07/31/17 08:46 DC 07/31/17 09:08 4 MLS/MIN Potassium Phosphate 21 mmol/ Sodium Chloride 507 ml @ 144.857 mls/hr ONE ONCE IV 07/31/17 08:45 07/31/17 12:14 DC 07/31/17 09:07 144.857 MLS/HR Potassium Chloride 20 meq/ Prmx 100 ml @ 50 mls/hr Q2H IV 07/31/17 09:30 07/31/17 13:29 DC 07/31/17 11:35 50 MLS/HR Vancomycin HCl 1500 mg/Sodium Chloride 530 ml @ 200 mls/hr Q24H IV 08/01/17 01:00 08/01/17 10:14 DC 08/01/17 01:18 200 MLS/HR Potassium Chloride 20 meq/ Prmx 100 ml @ 50 mls/hr Q2H IV 08/01/17 09:30 08/01/17 15:29 DC 08/01/17 13:33 50 MLS/HR Furosemide 30 mg/ Syringe 3 ml @ 4 mls/min BID IV 08/01/17 09:00 08/01/17 18:40 DC 08/01/17 09:33 4 MLS/MIN Vancomycin HCl 1500 mg/Sodium Chloride 530 ml @ 200 mls/hr Q18H IV 08/01/17 19:00 08/04/17 06:46 DC 08/03/17 06:14 200 MLS/HR Potassium/ Phosphorus/Sodium (Phospha 250 Neutral 155-852-130 Mg) 1 tab Q4H PO 08/02/17 02:00 08/02/17 10:01 DC 08/02/17 09:43 1 TAB Potassium Chloride (Klor-Con M10) 20 meq Q4H PO 08/02/17 02:00 08/02/17 10:01 DC 08/02/17 07:35 20 MEQ Docusate Sodium (coLACE CAP) 100 mg QPM PO 08/02/17 21:00 09/01/17 20:59 08/13/17 20:40 100 MG Bumetanide (Bumex Tab) 1 mg QAM PO 08/02/17 09:00 08/09/17 14:53 DC 08/09/17 08:44 1 MG Acetazolamide Sodium 500 mg/ Syringe 5 ml @ 5 mls/min BID IV 08/02/17 09:00 08/02/17 21:00 DC 08/02/17 21:32 5 MLS/MIN Heparin Sodium (Porcine) (Heparin 10 Unit/ ml 5 ml Flush) 5 ml PRN PRN FLUSH 08/02/17 18:15 09/01/17 18:14 08/14/17 05:52 5 ML Vancomycin HCl 1500 mg/Sodium Chloride 530 ml @ 200 mls/hr Q24H IV 08/04/17 09:00 08/06/17 11:17 DC 08/06/17 08:32 200 MLS/HR Metoprolol Succinate (Toprol Xl Tab) 50 mg QAM PO 08/05/17 09:00 09/04/17 08:59 08/14/17 08:34 50 MG Metoprolol Succinate (Toprol Xl Tab) 50 mg 1100 ONCE PO 08/04/17 11:00 08/04/17 11:01 DC 08/04/17 11:21 50 MG Furosemide 40 mg/ Syringe 4 ml @ 4 mls/min NOW ONCE IV 08/06/17 09:30 08/06/17 09:31 DC 08/06/17 09:59 4 MLS/MIN Albuterol/ Ipratropium (Duoneb) 3 ml ONE STAT INH 08/06/17 09:04 08/06/17 09:07 DC 08/06/17 09:25 3 ML Cephalexin Monohydrate (Keflex Cap) 500 mg QID PO 08/06/17 13:00 08/08/17 23:59 DC 08/08/17 21:47 500 MG Furosemide 40 mg/ Syringe 4 ml @ 4 mls/min ONE ONCE IV 08/06/17 14:00 08/06/17 14:01 DC 08/06/17 15:48 4 MLS/MIN Albuterol/ Ipratropium (Duoneb) 3 ml Q4RWA INH 08/06/17 20:00 09/05/17 19:59 08/14/17 07:32 3 ML Furosemide 20 mg/ Syringe 2 ml @ 4 mls/min 1830 ONCE IV 08/06/17 18:30 08/06/17 18:31 DC 08/06/17 19:28 4 MLS/MIN Potassium Chloride (Klor-Con M10) 20 meq 0745 ONCE PO 08/07/17 07:45 08/07/17 07:46 DC 08/07/17 09:24 20 MEQ Potassium Chloride (Klor-Con Tab) 20 meq TODAY@0930 ONCE PO 08/07/17 09:30 08/07/17 09:31 DC 08/07/17 09:24 20 MEQ Potassium Chloride (Klor-Con M10) 10 meq TODAY@1200 ONCE PO 08/07/17 12:00 08/07/17 12:01 DC 08/07/17 12:00 10 MEQ Enalapril Maleate (Vasotec Tab) 20 mg QAM PO 08/08/17 09:00 09/07/17 08:59 08/14/17 08:34 20 MG Polyethylene (Miralax Powder Packet) 17 gm NOW ONCE PO 08/08/17 12:30 08/08/17 12:31 DC 08/08/17 13:23 17 GM Bisacodyl (Dulcolax Supp) 10 mg NOW STAT UT 08/08/17 12:16 08/08/17 12:20 DC 08/08/17 14:02 10 MG Warfarin Sodium (Coumadin Tab) 3 mg DAILY@16 PO 08/08/17 16:00 09/07/17 15:59 08/13/17 16:10 3 MG Iron Sucrose 100 mg/Sodium Chloride 105 ml @ 420 mls/hr NOW STAT IV 08/09/17 09:14 08/09/17 09:28 DC 08/09/17 09:51 420 MLS/HR Bumetanide (Bumex Tab) 2 mg QAM PO 08/10/17 09:00 08/12/17 16:06 DC 08/12/17 10:01 2 MG Bumetanide 2 mg/ Syringe 8 ml @ 4 mls/min NOW STAT IV 08/09/17 15:04 08/09/17 15:05 DC 08/09/17 15:34 4 MLS/MIN Bumetanide 1 mg/ Syringe 4 ml @ 4 mls/min TODAY@1515 IV 08/10/17 15:15 08/10/17 16:00 DC 08/10/17 16:04 4 MLS/MIN Bumetanide 1 mg/ Syringe 4 ml @ 4 mls/min NOW ONCE IV 08/11/17 11:30 08/11/17 11:31 DC 08/11/17 12:26 4 MLS/MIN Ferrous Sulfate (Feosol Tab) 325 mg QAM PO 08/12/17 09:00 09/11/17 08:59 08/14/17 08:34 325 MG Polyethylene (Miralax Powder Packet) 17 gm NOW ONCE PO 08/11/17 13:30 08/11/17 13:40 DC 08/11/17 13:50 17 GM Bisacodyl (Dulcolax Supp) 10 mg DAILY PRN UT 08/11/17 13:45 09/10/17 13:44 08/13/17 08:56 10 MG Bumetanide 1 mg/ Syringe 4 ml @ 4 mls/min TODAY@1200 ONCE IV 08/12/17 12:00 08/12/17 12:01 DC 08/12/17 13:02 4 MLS/MIN Bumetanide (Bumex Tab) 2 mg BID PO 08/13/17 09:00 09/01/17 08:59 08/14/17 08:33 2 MG Sodium Chloride ([place] Nasal [place]) 225 sprays STK-MED ONCE .ROUTE 08/14/17 12:12 08/14/17 12:13 DC 08/14/17 12:16 225 SPRAYS (Judie Rivera, [place]) Objective Vital Signs Date Time Temp Pulse Resp B/P (MAP) Pulse Ox O2 Delivery O2 Flow Rate FiO2 08/14/17 11:22 95 Nasal Cannula 3.0 08/14/17 11:22 85 Room Air 08/14/17 11:08 Room Air 08/14/17 07:38 83 16 95 Nasal Cannula 2.0 08/14/17 07:21 36.7 80 16 117/60 (79) 94 Nasal Cannula 2.0 08/14/17 05:00 36.7 62 20 122/81 (95) 98 Room Air 08/14/17 00:00 95 Nasal Cannula 2.0 08/13/17 23:37 37.1 82 20 92/53 (66) 95 Nasal Cannula 3.0 08/13/17 19:25 82 18 92 Nasal Cannula 2.0 08/13/17 17:00 111/62 (78) 08/13/17 16:00 95 Nasal Cannula 2.0 08/13/17 15:17 81 18 95 Nasal Cannula 2.0 08/13/17 15:02 36.5 87 16 86/52 (63) 94 Nasal Cannula 2.0 08/13/17 14:27 36.9 77 18 96 2.0 (Judie Rivera CRNP) Physical Exam Notes: General: no distress Eyes: normal inspection, PERLL Respiratory: chest non tender, fine crackles right base, other uribe clear to auscultation, no respiratory distress, no accessory muscle use Cardiac: regular rate and rhythm, no rub or gallop, systolic murmur, no edema GI/: active bowel sounds, no abd pain or tenderness, soft, non distended Extremities: normal range of motion, normal strength, non tender Neuro/Psych: alert and oriented x 3, normal mood and affect Skin: normal color, dry (Judie Rivera CRNP) Laboratory Results Last 24 Hours Test 08/14/17 05:54 Prothrombin Time 25.8 SECONDS Prothromb Time International Ratio 2.5 (Judie Rivera CRNP) Assessment and Plan Mr. Garcia is a 77 year old man here for increased weakness Acute Hypoxic Hypercarbic Respiratory Failure 08/01 Acute on Chronic Systolic CHF and Multifocal Pneumonia/Sepsis/E.faecalis UTI - Patient was intubated on 07/30 and respiratory acidosis improved on subsequent draws and extubated on 08/01 - Pressor support off since 08/01 - Zosyn and Vancomycin discontinued - ID on board - switched to cephalexin - abx course completed - ABGs 08/06 showed hypercapnea/hypoxia - placed on bipap and given IV lasix, nebs - CXR showed pulmonary congestion - put out almost 4L and oxygenation improved - should continue with bipap while sleeping -Bps and kidney function tolerating - continue daily po bumex to bid - Some fine crackles in base this am - CXR and encouraged IS Anemia - likely anemia of chronic disease as there is no apparent bleeding and MCV is normocytic. INR has been therapeutic since 08/04 - Iron panel was low - given 1 transfusion of iron 08/09, 325 mg iron daily - Transfuse if hgb drops below 7 or patient becomes symptomatic SANTHOSH on CKD Stage III: - resolved - Nephrology following - avoid nephrotoxins and maintain a slight negative fluid balance Hyperkalemia - resolved - potassium was not discontinued when Bumex was discontinue at HS - trended down Hypokalemia - repleated and resolved CAD S/P CABG; AAA/Aortic Dissection; S/P ICD/Pacer; Acute Systolic CHF; Atrial Fibrillation: Supratherapeutic INR - Has bovine valve - INR goal 2-3 - Amiodarone 200 mg daily, Pravastatin 40 mg daily, and ASA 81 mg daily - Restarted Toprol at reduced dosing of 50 mg daily and titrate back to 100 mg daily as tolerated - with increase in diuretic, has been unable to tolerate an increase in bb -Continue Vasotec - INR supratherapuetic likely due to interactions with other medications vs possible relation to shock/liver? -Coumadin held 08/01 for supratherapeutic INR - INR therapeutic since 08/04 without any coumadin given - restarted 08/08 at reduced dose - check INR am Left arm hematoma 08/01 PICC attempt - improving Weakness - neuro consulted - patient has history of transverse myelitis however Dr. Collins does not feel this is currently an issue. - PT/OT CAD - no evidence of ACS - cont ASA, Statin, B xavier. 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 Dunaway who was consulted - no intervention at this time. Constipation - Miralax DVT proph - Coumadin Full code (Judie Rivera ., [place]) [employer] Physician Supervision Note: I interviewed and examined the patient. Discussed with Judie Rivera [employer]OR C[employer] and agree with findings and plan as documented in the note. Any exceptions or clarifications are listed here: None Patient is doing well tolerating diuresis but having any persistent or increased shortness of breath renal function is also without distress from diuresis looking for rehabilitation at 1-2 days Vital signs are stable but he does desaturate significantly when off oxygen Heart is irregular with a systolic murmur his lungs have decreased breath sounds at the right base with some crackles consistent with a persistent right basilar pleural effusion seen on x-ray which was repeated today and compared to his last Acute on chronic systolic heart failure with significant respiratory distress now improved with diuresis continuing to diurese the patient with likely disposition to rehabilitation facility the next day or 2, pleural effusion the right base likely too small to meaningfully and P his oxygenation if it were to worsen consideration for thoracentesis could be discussed Documented By: Vijay Stack (Vijay Stack M.D.)
--- NOTE | 2017-08-14 13:37 | Discharge Summary ---
Discharge Summary Date of Service Aug 15, 2017. Discharge Summary Admission Date: Jul 28, 2017 at 22:16 Discharge Date: Aug 18, 2017 Discharge Disposition: custodial facility (rehab emphasis) Principal Diagnosis: Acute hypoxic respiratory failure secondary to acute on chronic systolic hf Problems/Secondary Diagnoses: (1) Abdom Aortic Aneurysm Status: Chronic (2) Aortic dissection, thoracic Status: Chronic (3) 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 (4) Aortocoronary Bypass Status: Chronic (5) CAD (coronary artery disease) Status: Chronic (6) Chronic Kidney Disease, Unspecified Status: Chronic (7) Chronic Obstructive Pulmonary Disease W (Acute) Exacerbation Status: Chronic (8) 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 (9) HTN (hypertension) Status: Chronic (10) Hyperlipidemia, Unspecified Status: Chronic (11) Hypertrophy (Benign) Of Prostate W/O Urinary Obst & Oth Luts Status: Chronic (12) Hypothyroidism, Unspecified Status: Chronic (13) 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 Immunizations: Have You Had Influenza Vaccine: No History of Tetanus Vaccine?: Yes History of Pneumococcal: Yes Pneumococcal Date: Apr 08, 2002 History of Hepatitis B Vaccine: No Procedures: CHEST ONE VIEW PORTABLE CLINICAL HISTORY: eval for effusion dyspnea COMPARISON STUDY: 08/06/2017 FINDINGS: Cardiomegaly with findings of congestive heart failure. Small bilateral pleural effusions. Slight improvement in aeration of the right lung base. Left base is similar. Position of the patient's permanent bipolar cardiac pacemaker is unaltered. The catheter remains in superior vena cava. IMPRESSION: Generally stable findings of congestive failure versus pulmonary edema. Slight improvement in aeration right lung base The bilateral pleural effusions are stable. CT SCAN OF THE ABDOMEN AND PELVIS WITHOUT CONTRAST CLINICAL HISTORY: Sepsis. Renal failure. COMPARISON STUDY: 02/03/2017 TECHNIQUE: CT scan of the abdomen and pelvis was performed from the lung bases to the proximal femurs. Images are reviewed in the axial, sagittal, and coronal planes. IV contrast was not administered for this examination. A dose lowering technique was utilized adhering to the principles of ALARA. CT DOSE: FINDINGS: Lower chest: The heart is enlarged. There is dense calcification at the aortic root. There is a small right pleural effusion. There is bibasal pulmonary consolidation. Liver: The unenhanced liver is normal in size, contour, and attenuation. There is no intrahepatic biliary ductal dilatation. Gallbladder: Mildly distended. Multiple calculi are visualized. Spleen: Normal in size and attenuation. Pancreas: Unremarkable. Adrenal glands: Unremarkable. Kidneys: There are multiple bilateral low density renal masses, likely representing cysts. The largest in the right measures 9.2 cm. The largest in the left measures 5.4 cm. In addition there is an apparent 3.5 cm solid left renal mass. This was previously described and suspicious for a renal cell carcinoma. Bowel: There are no transition zones to indicate bowel obstruction. There is no acute diverticulitis. There are no findings to indicate acute appendicitis. There is a left femoral hernia containing a small segment of colon. There are no current obstructive changes. Peritoneum: There is no intraperitoneal free air or abdominal ascites. There is mild infiltration of the retroperitoneal fat paralleling the psoas muscles. This was present on the preceding study. Vasculature: There is aneurysmal dilatation of the abdominal aorta which measures 6.2 cm in maximal diameter. There is displacement of intimal calcifications consistent with an aortic dissection. This appears to extend into the right common iliac artery. This was previously described. Adenopathy: There is no pathologic adenopathy. Pelvic viscera: There is an indwelling Sandoval catheter. There is artifact secondary to a left hip arthroplasty Skeletal structures: No destructive osseous lesions are seen. IMPRESSION: 1. Small right pleural effusion and bilateral lower lobe pulmonary consolidation 2. Cholelithiasis 3. No evidence of bowel obstruction. No evidence of free air 4. 3.5 cm solid left renal mass consistent with the patient's suspected renal cell carcinoma. Additional renal lesions likely represent cysts 5. Bowel containing left inguinal hernia 6. Abdominal aortic aneurysm and dissection. CHEST ONE VIEW PORTABLE HISTORY: hypoxia COMPARISON: Chest 07/28/2017. FINDINGS: Progressive interstitial and vascular thickening consistent with pulmonary edema. The heart remains enlarged. Postoperative changes and an aortic valve prosthesis are again noted. Left-sided pacemaker/defibrillator. Small bilateral pleural effusions have progressed. Left basilar linear densities favor subsegmental atelectasis. This is not significantly changed. Surgical clips within the right axilla. IMPRESSION: Progression of the mild to moderate pulmonary edema and small bilateral pleural effusions. Consultations: Dr. Reyes from nephrology Dr. Terry from ID Dr. Persaud cad specialist Dr. Dunaway from vascular surgery [facility], [place] from Palliative Care Dr. Collins from neurology Medication Reconciliation New Medications: Bumetanide (Bumetanide) 1 Mg Tab 2 MG PO BID for 30 Days, #30 TAB Ferrous Sulfate (Ferrous Sulfate) 325 Mg Tab 325 MG PO QAM for 30 Days, #30 TAB Metoprolol Succinate (Metoprolol Succinate ER) 50 Mg Tabcr 50 MG PO QAM for 30 Days, #30 DOSE Warfarin Sod (Coumadin) 3 Mg Tab 3 MG PO DAILY@16 for 14 Days, #14 TAB Continued Medications: Amiodarone HCl (Amiodarone HCl) 200 Mg Tab 200 MG PO QAM, TAB Ascorbic Acid (Vitamin C) 500 Mg Tab 1 TAB PO QAM Aspirin (Aspirin) 81 Mg Chw 81 MG PO QAM, TAB 3 Refills Cephalexin Monohydrate (Keflex) 500 Mg Cap 500 MG PO TID, #30 CAP Docusate Sodium (Docusate Sodium) 100 Mg Cap 100 MG PO QPM Famotidine (Famotidine) 20 Mg Tab 20 MG PO QAM Levothyroxine Sodium (Levothyroxine Sodium) 25 Mcg Tab 25 MCG PO QAM, #30 Multivitamin (Multivitamin) Tab 1 TAB PO QAM Nitroglycerin (Nitrostat) 0.4 Mg Tab 0.4 MG UT PRN, 0 Refills Potassium Chloride (Potassium Chloride Er) 10 Meq Tab 10 MEQ BID Pravastatin Sodium (Pravastatin Sodium) 40 Mg Tab 40 MG HS Ramipril (Ramipril) 5 Mg Cap 5 MG PO QAM, CAP 3 Refills Tamsulosin HCl (Tamsulosin HCl) 0.4 Mg Cap 0.4 MG PO HS Discontinued Medications: Metoprolol Succinate (Toprol Xl) 100 Mg Tab 100 MG PO QAM, TAB Nitrofurantoin Monohyd Macrocr (Macrobid) 100 Mg Cap 100 MG PO BID, #14 CAP Warfarin Sod (Coumadin) 5 Mg Tab 5 MG PO DAILY@16 for 30 Days, #30 TAB Discharge Exam ROS Constitutional: no chills, aches, sweats or fever Respiratory: no sob,cough, sputum, or wheezing Cardiac: no chest pain, palpitations, edema, orthopnea or lightheadedness GI: no abdominal pain, nausea, vomiting, diarrhea or constipation : no dysuria or hesitancy Extremities: no joint pain or weakness Skin: no rash All other systems reviewed and negative PE: General Appearance: WD/WN, no apparent distress Eyes: PERRL, EOMI ENT: hearing grossly normal, pharynx normal Neck: supple, no JVD Respiratory/Chest: no respiratory distress, no accessory muscle use, + pertinent finding (On 2.5 L via NC. Faint crackles with deep breaths, no wheeze or rales. ) Cardiovascular: + systolic murmur Abdomen: normal bowel sounds, non tender, soft Extremities: non-tender, + pedal edema (mild pitting edema of the RLE and less in the LLE around the ankles. ) Neurologic/Psychiatric: alert, normal mood/affect, oriented x 3 Skin: normal color, warm/dry Physical Exam: General Appearance: no apparent distress Eyes: EOMI ENT: hearing grossly normal Neck: trachea midline Respiratory/Chest: no respiratory distress, no accessory muscle use Neurologic/Psychiatric: personalized living assistant II-XII nml as tested, alert, normal mood/affect , oriented x 3 Skin: normal color, warm/dry Hospital Course 77 y/o M Hx chronic systolic, CAD, CHF, AF, AVR, HTN, HPL, hypothyroidism, CKD II-III, transverse myelitis. Recent hip L fracture (repaired bipolar hemiarthroplasty 06/26/17) followed by admission to [facility] for rehab. D/ Cd from [facility] 2 days [employer]. Reported to the ED for increasing weakness since that time and inability to ambulate. Initial labs were notable for hyperkalemia and a (+) UA, and initial CXR was consistent with vascular congestion. On arrival to the ER it was noted that the pt's 02 sat was as low as 83%. Acute Hypoxic Hypercarbic Respiratory Failure / Acute on Chronic Systolic CHF and Multifocal Pneumonia/Sepsis/E.faecalis UTI - Patient was intubated on 07/30 and respiratory acidosis improved on subsequent lab draws and extubated on 08/01 - Pressor support off since 08/01 and moved out of ICU to telemetry - Zosyn and Vancomycin discontinued - ID on board - switched to cephalexin - abx to continue until seen by ID outpatient - ABGs 08/06 showed hypercapnea/hypoxia - placed on bipap and given IV lasix, nebs - CXR showed pulmonary congestion - put out almost 4L and oxygenation improved - should continue with bipap while sleeping - Bps and kidney function tolerating diuresis well - transitioned to po bumex bid from IV - continue to follow clinically and follow BMP frequently at this point, spacing out as clinically warranted, but appearing to be doing well Anemia - likely anemia of chronic disease as there is no apparent bleeding and MCV is normocytic. INR has been therapeutic since 08/04 - Iron panel was low - given 1 transfusion of iron 08/09, 325 mg iron daily - Did not require PRBC transfusion - follow periodic CBC SANTHOSH on CKD Stage III: Left renal cell mass - resolved - Creat peaked at 1.85 on 07/30 and trended back down to around 1 - Nephrology consulted - avoid nephrotoxins and maintain a slight negative fluid balance - In regards to the renal cell mass, concerning for RCC pt should follow up with Dr. Ellis with urology within [address] abd/ pelvis reviewed. - follow BMP as above Hyperkalemia - resolved - likely due to potassium not being discontinued when Bumex was discontinue at HS - trended down Hypokalemia - repleated and resolved CAD S/P CABG; AAA/Aortic Dissection; S/P ICD/Pacer; Acute Systolic CHF; Atrial Fibrillation: Supratherapeutic INR - Has bovine valve - INR goal 2-3 - Amiodarone 200 mg daily, Pravastatin 40 mg daily, and ASA 81 mg daily - Restarted Toprol at reduced dosing of 50 mg daily - bps stable - Continued Vasotec - returned to home dose ramipril for discharge - INR supratherapuetic likely due to interactions with other medications vs possible relation to shock/liver? -Coumadin held 08/01 for supratherapeutic INR - INR therapeutic since 08/04 without any coumadin given - restarted 08/08 at reduced dose 3 mg daily, current INR 2.9 - follow closely per institutional protocols Left arm hematoma 2/2 PICC attempt - improving Weakness - neuro consulted - patient has history of transverse myelitis however Dr. Collins does not feel this is currently an issue. - PT/OT to continue at [facility], has shown good progress here CAD - no evidence of ACS - cont ASA, Statin, B xavier. 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 Dunaway who was consulted - no intervention at this time. (pt notes that this has been deemed nonoperable due to his other vascular disease) Constipation - Miralax Code Full Disposition: Dc to [facility] today. Total Time Spent: Greater than 30 minutes This includes examination of the patient, discharge planning, medication reconciliation, and communication with other providers. Discharge Instructions Please refer to the electronic Patient Visit Report (Discharge Instructions) for additional information. Follow-Up Follow up with primary care provider within 1 week. Wound care PT/OT while at rehab Follow up with infectious disease within 1-2 weeks. Follow up with urology within 1 week, discuss U/S of the kidneys to assess renal mass. Additional Copies To [facility]
--- NOTE | 2017-08-14 13:49 | DIAGNOSTIC IMAGING REPORT ---
CHEST ONE VIEW PORTABLE HISTORY: 77 years-old Male crackles to ausculation acutely abnormal lung sounds COMPARISON: Chest radiograph 08/10/2017, 08/06/2017 and 08/02/2017 TECHNIQUE: Portable AP view of the chest FINDINGS: Cardiac silhouette is again moderately enlarged. Prior median sternotomy. Left subclavian pacer/AICD appears unchanged. Right-sided PICC is again noted with distal tip in the region of the mid SVC. There is no pneumothorax. Small bilateral pleural effusions. Mild pulmonary vascular congestion with persistent interstitial coarsening and bibasilar opacities. There is improved aeration of the bilateral lungs from comparison, notably the right lung. Surgical clips project over the right axillary region. The bones appear intact. Degenerative changes are seen within the shoulders and spine. IMPRESSION: 1. Cardiomegaly with improved pulmonary edema. 2. No small bilateral pleural effusions with persistent bibasilar opacities suggesting atelectasis. The above report was generated using voice recognition software. It may contain grammatical, syntax or spelling errors. Electronically signed by: Heath Taylor M.D. 08/14/2017 1:47 PM Dictated Date/Time: 08/14/2017 1:44 PM
[2017-08-14] MEDS: WARFARIN SOD 3 MG TAB PO SCH (15:38)
[2017-08-14] MEDS ORDERED: ALBUT/IPRATROP 3MG/0.5MG NEB 3 ML VIAL INH PRN (16:00)
[2017-08-14] MEDS: PRAVASTATIN SOD 40 MG TAB PO SCH (21:38)
[2017-08-14] MEDS: DOCUSATE SODIUM 100 MG CAP PO SCH (21:38)
[2017-08-15] MEDS: LEVOTHYROXINE 25 MCG TAB PO SCH (05:09)
[2017-08-15 06:12] LABS: HEMATOCRIT 27.4 % (42-52); MEAN CELL VOLUME 89.3 fL (80-100); MEAN CORPUSCULAR HEMOGLOBIN 26.1 pg (25-34); MEAN CORPUSCULAR HGB CONC 29.2 g/dl (32-36); MEAN PLATELET VOLUME 9.3 fL (7.4-10.4); PLATELET COUNT 194 K/uL (130-400); RED CELL DISTRIBUTION WIDTH CV 19.1 % (11.5-14.5); RED CELL DISTRIBUTION WIDTH SD 62.9 fL (36.4-46.3); WHITE BLOOD COUNT 6.28 K/uL (4.8-10.8)
[2017-08-15 06:43] LABS: CALCIUM 8.3 mg/dl (8.5-10.1); CREATININE 1.1 mg/dl (0.60-1.40); POTASSIUM 3.6 mmol/L (3.5-5.1)
[2017-08-15 06:46] LABS: INR 2.5 (0.9-1.1)
[2017-08-15 07:58] VITALS: BP 106/62; PULSE 80; TEMP 36.6; O2SAT 97
[2017-08-15 08:02] VITALS: O2SAT 97
[2017-08-15] MEDS: ASCORBIC ACID 500 MG TAB PO SCH (08:44)
[2017-08-15] MEDS: ENALAPRIL MALEATE 10 MG TAB PO SCH (08:45)
[2017-08-15] MEDS: BUMETANIDE 1 MG TAB PO SCH ×2 (08:45→20:44)
[2017-08-15] MEDS: FERROUS SULFATE 325 MG TAB PO SCH (08:46)
[2017-08-15] MEDS: METOPROLOL SUCC 50MG EXT REL TAB PO SCH (08:46)
[2017-08-15] MEDS: AMIODARONE 200 MG TAB PO SCH (08:47)
--- NOTE | 2017-08-15 08:49 | Hospitalist Progress Note ---
Hospitalist Progress Note Date of Service Aug 15, 2017. Objective Vital Signs Date Time Temp Pulse Resp B/P (MAP) Pulse Ox O2 Delivery O2 Flow Rate FiO2 08/15/17 08:02 97 Nasal Cannula 2.5 08/15/17 07:58 36.6 80 14 106/62 (77) 97 Nasal Cannula 2.5 08/15/17 00:30 Nasal Cannula 3.0 08/14/17 23:40 36.6 86 20 118/66 (83) 91 Room Air 08/14/17 15:50 36.6 80 17 104/63 (77) 95 Nasal Cannula 3.0 08/14/17 15:32 Nasal Cannula 3.0 08/14/17 11:22 95 Nasal Cannula 3.0 08/14/17 11:22 85 Room Air 08/14/17 11:08 Room Air Laboratory Results Last 24 Hours Test 08/15/17 06:02 White Blood Count 6.28 K/uL Red Blood Count 3.07 M/uL Hemoglobin 8.0 g/dL Hematocrit 27.4 % Mean Corpuscular Volume 89.3 fL Mean Corpuscular Hemoglobin 26.1 pg Mean Corpuscular Hemoglobin Concent 29.2 g/dl RDW Standard Deviation 62.9 fL RDW Coefficient of Variation 19.1 % Platelet Count 194 K/uL Mean Platelet Volume 9.3 fL Prothrombin Time 25.4 SECONDS Prothromb Time International Ratio 2.5 Sodium Level 139 mmol/L Potassium Level 3.6 mmol/L Chloride Level 95 mmol/L Carbon Dioxide Level 39 mmol/L Anion Gap 5.0 mmol/L Blood Urea Nitrogen 26 mg/dl Creatinine 1.10 mg/dl Est Creatinine Clear Calc Drug Dose 61.7 ml/min Estimated GFR () 74.7 Estimated GFR (Non- 64.4 BUN/Creatinine Ratio 23.7 Random Glucose 93 mg/dl Calcium Level 8.3 mg/dl Magnesium Level 2.2 mg/dl Assessment and Plan 77 y/o M Hx chronic systolic, CAD, CHF, AF, AVR, HTN, HPL, hypothyroidism, CKD II-III, transverse myelitis. Recent hip L fracture (repaired bipolar hemiarthroplasty 06/26/17) followed by admission to [facility] for rehab. 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 Reported to the ED for increasing weakness since that time and inability to ambulate. Initial labs were notable for hyperkalemia and a (+) UA, and initial CXR was consistent with vascular congestion. On arrival to the ER it was noted that the pt's 02 sat was as low as 83%. Acute Hypoxic Hypercarbic Respiratory Failure 08/01 Acute on Chronic Systolic CHF and Multifocal Pneumonia/Sepsis/E.faecalis UTI - Patient was intubated on 07/30 and respiratory acidosis improved on subsequent lab draws and extubated on 08/01 - Pressor support off since 08/01 and moved out of ICU to telemetry - Zosyn and Vancomycin discontinued - ID on board - switched to cephalexin - abx to continue until seen by ID outpatient - ABGs 08/06 showed hypercapnea/hypoxia - placed on bipap and given IV lasix, nebs - CXR showed pulmonary congestion - put out almost 4L and oxygenation improved - should continue with bipap while sleeping - Bps and kidney function tolerating diuresis well - transitioned to po bumex bid from IV Anemia - likely anemia of chronic disease as there is no apparent bleeding and MCV is normocytic. INR has been therapeutic since 08/04 - Iron panel was low - given 1 transfusion of iron 08/09, 325 mg iron daily - Did not require PRBC transfusion SANTHOSH on CKD Stage III: - resolved - Creat peaked at 1.85 on 07/30 and trended back down to around 1 - Nephrology consulted - avoid nephrotoxins and maintain a slight negative fluid balance Hyperkalemia - resolved - likely due to potassium not being discontinued when Bumex was discontinue at HS - trended down Hypokalemia - repleated and resolved CAD S/P CABG; AAA/Aortic Dissection; S/P ICD/Pacer; Acute Systolic CHF; Atrial Fibrillation: Supratherapeutic INR - Has bovine valve - INR goal 2-3 - Amiodarone 200 mg daily, Pravastatin 40 mg daily, and ASA 81 mg daily - Restarted Toprol at reduced dosing of 50 mg daily - bps stable - Continued Vasotec - returned to home dose ramipril for discharge - INR supratherapuetic likely due to interactions with other medications vs possible relation to shock/liver? -Coumadin held 08/01 for supratherapeutic INR - INR therapeutic since 08/04 without any coumadin given - restarted 08/08 at reduced dose 3 mg daily Left arm hematoma 2/2 PICC attempt - improving Weakness - neuro consulted - patient has history of transverse myelitis however Dr. Collins does not feel this is currently an issue. - PT/OT CAD - no evidence of ACS - cont ASA, Statin, B xavier. 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 Dunaway who was consulted - no intervention at this time. Constipation - Miralax
[2017-08-15] MEDS: ASPIRIN 81 MG CHEW PO SCH (08:50)
[2017-08-15 14:45] VITALS: BP 106/62; PULSE 80; TEMP 36.6; O2SAT 97
--- NOTE | 2017-08-15 14:51 | Hospitalist Progress Note ---
Hospitalist Progress Note Date of Service Aug 15, 2017. (Patricia Degroot PA-C) Subjective Pt evaluation today including: conversation w/ patient, physical exam, chart review, lab review, review of studies Pain: None PO Intake: Good Voiding: voiding difficulty (requires prn straight caths) The patient was seen and examined this morning. Pt reports doing well overall, he is anticipating discharge today. His is present with him at bedside. He denies any acute complaints currently. They both ask about questions regarding renal mass and their follow up with urology and would like to make sure follow up appointment is created for urology in regards to likely renal cell carcinoma. ROS: Constitutional: No fever, sweats or chills Eyes: No diplopia, no worsening or blurred vision ENT: normal hearing, no trouble swallowing Respiratory: No cough, sputum, dyspnea at rest or on exertion Cardiovascular: No chest pain, tightness or palpitations Abdomen: No pain, nausea, vomiting, diarrhea or constipation Musculoskeletal: No joint pain, calf pain, swelling Neurologic: No weakness, numbness/tingling Psychiatric: No anxiety or depression Skin: No rash or itch (Patricia Degroot PA-C) Objective Vital Signs Date Time Temp Pulse Resp B/P (MAP) Pulse Ox O2 Delivery O2 Flow Rate FiO2 08/15/17 08:02 97 Nasal Cannula 2.5 08/15/17 08:00 Nasal Cannula 2.5 08/15/17 07:58 36.6 80 14 106/62 (77) 97 Nasal Cannula 2.5 08/15/17 00:30 Nasal Cannula 3.0 08/14/17 23:40 36.6 86 20 118/66 (83) 91 Room Air 08/14/17 15:50 36.6 80 17 104/63 (77) 95 Nasal Cannula 3.0 08/14/17 15:32 Nasal Cannula 3.0 (Patricia Degroot PA-C) Physical Exam General Appearance: WD/WN, no apparent distress Eyes: PERRL, EOMI ENT: hearing grossly normal, pharynx normal Neck: supple, no JVD Respiratory/Chest: no respiratory distress, no accessory muscle use, + pertinent finding (On 2.5 L via NC. Faint crackles with deep breaths, no wheeze or rales. ) Cardiovascular: + systolic murmur Abdomen: normal bowel sounds, non tender, soft Extremities: non-tender, + pedal edema (mild pitting edema of the RLE and less in the LLE around the ankles. ) Neurologic/Psychiatric: alert, normal mood/affect, oriented x 3 Skin: normal color, warm/dry (Patricia Degroot PA-C) Laboratory Results Last 24 Hours Test 08/15/17 06:02 White Blood Count 6.28 K/uL Red Blood Count 3.07 M/uL Hemoglobin 8.0 g/dL Hematocrit 27.4 % Mean Corpuscular Volume 89.3 fL Mean Corpuscular Hemoglobin 26.1 pg Mean Corpuscular Hemoglobin Concent 29.2 g/dl RDW Standard Deviation 62.9 fL RDW Coefficient of Variation 19.1 % Platelet Count 194 K/uL Mean Platelet Volume 9.3 fL Prothrombin Time 25.4 SECONDS Prothromb Time International Ratio 2.5 Sodium Level 139 mmol/L Potassium Level 3.6 mmol/L Chloride Level 95 mmol/L Carbon Dioxide Level 39 mmol/L Anion Gap 5.0 mmol/L Blood Urea Nitrogen 26 mg/dl Creatinine 1.10 mg/dl Est Creatinine Clear Calc Drug Dose 61.7 ml/min Estimated GFR () 74.7 Estimated GFR (Non- 64.4 BUN/Creatinine Ratio 23.7 Random Glucose 93 mg/dl Calcium Level 8.3 mg/dl Magnesium Level 2.2 mg/dl (Patricia Degroot PA-C) Assessment and Plan 77 y/o M Hx chronic systolic, CAD, CHF, AF, AVR, HTN, HPL, hypothyroidism, CKD II-III, transverse myelitis. Recent hip L fracture (repaired bipolar hemiarthroplasty 06/26/17) followed by admission to [facility] for rehab. D/ Cd from [facility] 2 days [employer]. Reported to the ED for increasing weakness since that time and inability to ambulate. Initial labs were notable for hyperkalemia and a (+) UA, and initial CXR was consistent with vascular congestion. On arrival to the ER it was noted that the pt's 02 sat was as low as 83%. Acute Hypoxic Hypercarbic Respiratory Failure 2/2 Acute on Chronic Systolic CHF and Multifocal Pneumonia/Sepsis/E.faecalis UTI - Patient was intubated on 07/30 and respiratory acidosis improved on subsequent lab draws and extubated on 08/01 - Pressor support off since 08/01 and moved out of ICU to telemetry - Zosyn and Vancomycin discontinued - ID on board - switched to cephalexin - abx to continue until seen by ID outpatient - F/u with Dr. Terry within 1 week. - ABGs 08/06 showed hypercapnea/hypoxia - placed on bipap and given IV lasix, nebs - CXR showed pulmonary congestion - put out almost 4L and oxygenation improved - should continue with bipap while sleeping - Bps and kidney function tolerating diuresis well - transitioned to po bumex bid from IV Anemia - likely anemia of chronic disease as there is no apparent bleeding and MCV is normocytic. INR has been therapeutic since 08/04 - Iron panel was low - given 1 transfusion of iron 08/09, 325 mg iron daily - Did not require PRBC transfusion SANTHOSH on CKD Stage III: - resolved - Creat peaked at 1.85 on 07/30 and trended back down to around 1 - Nephrology consulted - avoid nephrotoxins and maintain a slight negative fluid balance Hyperkalemia - resolved - likely due to potassium not being discontinued when Bumex was discontinue at HS - trended down Hypokalemia - repleated and resolved CAD S/P CABG; AAA/Aortic Dissection; S/P ICD/Pacer; Acute Systolic CHF; Atrial Fibrillation: Supratherapeutic INR - Has bovine valve - INR goal 2-3 - Amiodarone 200 mg daily, Pravastatin 40 mg daily, and ASA 81 mg daily - Restarted Toprol at reduced dosing of 50 mg daily - bps stable - Continued Vasotec - returned to home dose ramipril for discharge - INR supratherapeutic likely due to interactions with other medications vs possible relation to shock/liver? -Coumadin held 08/01 for supratherapeutic INR - INR therapeutic since 08/04 without any coumadin given - restarted 08/08 at reduced dose 3 mg daily Left arm hematoma 08/01 PICC attempt - improving Weakness - neuro consulted - patient has history of transverse myelitis however Dr. Collins does not feel this is currently an issue. - PT/OT CAD - no evidence of ACS - cont ASA, Statin, B xavier. 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 Dunaway who was consulted - no intervention at this time. Constipation - Miralax CODE STATUS: Full code Disposition: Patient to be discharged to [facility] today pending insurance auth, and to arrange transportation. (Patricia Degroot, PAKuldipC) i personally examined pt and verified all vitale points gordon Degroot feeling better hopeful for rehab vitals noted nad breathign unlabored no pallor or icterus hypoxia - improving deconditioning - needs SNF/rehab anticipate placement hopefully tomorrow otherwise as above (Jerrod Beyer D.O.)
[2017-08-15 15:03] VITALS: BP 91/57; PULSE 98; TEMP 36.8; O2SAT 96
[2017-08-15 16:00] VITALS: O2SAT 96
[2017-08-15] MEDS: WARFARIN SOD 3 MG TAB PO SCH (16:02)
[2017-08-15] MEDS: DOCUSATE SODIUM 100 MG CAP PO SCH (20:44)
[2017-08-15] MEDS: PRAVASTATIN SOD 40 MG TAB PO SCH (20:44)
[2017-08-15 23:00] VITALS: BP 115/66; PULSE 74; TEMP 36.5; O2SAT 96
[2017-08-16] MEDS: LEVOTHYROXINE 25 MCG TAB PO SCH (06:13)
[2017-08-16 07:33] VITALS: BP 97/60; PULSE 70; TEMP 36.3; O2SAT 94
[2017-08-16] MEDS: METOPROLOL SUCC 50MG EXT REL TAB PO SCH (08:49)
[2017-08-16] MEDS: FERROUS SULFATE 325 MG TAB PO SCH (08:50)
[2017-08-16] MEDS: ASCORBIC ACID 500 MG TAB PO SCH (08:50)
[2017-08-16] MEDS: ENALAPRIL MALEATE 10 MG TAB PO SCH (08:50)
[2017-08-16] MEDS: BUMETANIDE 1 MG TAB PO SCH ×2 (08:50→19:13)
[2017-08-16] MEDS: AMIODARONE 200 MG TAB PO SCH (08:50)
[2017-08-16 08:52] VITALS: BP 101/61; PULSE 6; PULSE 76
[2017-08-16] MEDS: ASPIRIN 81 MG CHEW PO SCH (08:52)
--- NOTE | 2017-08-16 12:06 | Hospitalist Progress Note ---
Hospitalist Progress Note Date of Service Aug 16, 2017. (Judie Rivera .[place]) Subjective Pt evaluation today including: conversation w/ patient, physical exam, chart review, review of inpatient medication list Voiding: no voiding problems Mr. Garcia continues to improve. He walked the halls this morning which did make him short of breath but his exercise tolerance is getting better. ROS Constitutional: no chills, aches, sweats or fever Respiratory: no cough, sputum, or wheezing Cardiac: no chest pain, palpitations, edema, orthopnea or lightheadedness GI: no abdominal pain, nausea, vomiting, diarrhea or constipation : no dysuria or hesitancy Extremities: no joint pain or weakness Skin: no rash All other systems reviewed and negative (Judie Rivera CRNP) Medications Medications Administered Medications (Trade) Dose Ordered Sig/Deion Route Start Time Stop Time Status Last Admin Dose Admin Sodium Chloride 1,000 ml @ 999 mls/hr Q1H1M STAT IV 07/28/17 19:54 07/28/17 20:54 DC 07/28/17 19:54 999 MLS/HR Cefepime HCl 1000 mg/Dextrose 111 ml @ 200 mls/hr NOW STAT IV 07/28/17 21:20 07/28/17 21:53 DC 07/28/17 21:52 200 MLS/HR Levofloxacin (Levaquin / D5W) 750 mg NOW STAT IV 07/28/17 21:20 07/28/17 21:22 DC 07/28/17 22:13 750 MG Amiodarone HCl (Cordarone Tab) 200 mg QAM PO 07/29/17 09:00 08/28/17 08:59 08/16/17 08:50 200 MG Ascorbic Acid (Vitamin C Tab) 500 mg QAM PO 07/29/17 09:00 08/28/17 08:59 08/16/17 08:50 500 MG Aspirin (Ecotrin Tab) 81 mg QAM PO 07/29/17 09:00 07/30/17 09:26 DC 07/30/17 09:12 81 MG Docusate Sodium (coLACE CAP) 100 mg QPM PO 07/29/17 21:00 07/30/17 21:28 DC 07/29/17 22:13 100 MG Famotidine (Pepcid Tab) 20 mg QAM PO 07/29/17 09:00 07/30/17 09:23 DC 07/30/17 09:13 20 MG Levothyroxine Sodium (Synthroid Tab) 25 mcg DAILYBB PO 07/29/17 06:30 08/28/17 06:59 08/16/17 06:13 25 MCG Metoprolol Succinate (Toprol Xl Tab) 100 mg QAM PO 07/29/17 09:00 07/29/17 19:00 DC 07/29/17 08:17 100 MG Pravastatin Sodium (Pravachol Tab) 40 mg HS PO 07/29/17 21:00 08/28/17 20:59 08/15/17 20:44 40 MG Warfarin Sodium (Coumadin Tab) 5 mg DAILY@16 PO 07/29/17 16:00 08/08/17 13:53 DC 08/04/17 16:28 5 MG Enalapril Maleate (Vasotec Tab) 20 mg QAM PO 07/29/17 09:00 07/29/17 19:00 DC 07/29/17 08:16 20 MG Acetaminophen (Tylenol Tab) 650 mg Q4H PRN PO 07/28/17 22:00 08/27/17 21:59 07/30/17 03:11 650 MG Polyethylene (Miralax Powder Packet) 17 gm DAILY PRN PO 07/28/17 22:00 08/27/17 21:59 08/13/17 08:55 17 GM Furosemide 40 mg/ Syringe 4 ml @ 4 mls/min ONE ONCE IV 07/29/17 03:15 07/29/17 03:16 DC 07/29/17 04:32 4 MLS/MIN Ceftriaxone Sodium 1 gm/ Dextrose 50 ml @ 100 mls/hr Q24H IV 07/29/17 08:00 07/29/17 15:57 DC 07/29/17 08:15 100 MLS/HR Albuterol/ Ipratropium (Duoneb) 3 ml QIDR INH 07/29/17 08:00 07/30/17 18:05 DC 07/29/17 16:25 3 ML Furosemide 40 mg/ Syringe 4 ml @ 4 mls/min 1530 ONCE IV 07/29/17 15:30 07/29/17 15:31 DC 07/29/17 15:33 4 MLS/MIN Piperacillin Sod/ Tazobactam Sod 3.375 gm/Dextrose 115 ml @ 28.75 mls/ hr Q8H IV 07/29/17 22:00 08/06/17 11:16 DC 08/06/17 05:28 28.75 MLS/HR Piperacillin Sod/ Tazobactam Sod 4.5 gm/Dextrose 120 ml @ 200 mls/hr NOW STAT IV 07/29/17 16:11 07/29/17 16:46 DC 07/29/17 16:11 200 MLS/HR Vancomycin HCl 2500 mg/Sodium Chloride 550 ml @ 200 mls/hr NOW STAT IV 07/29/17 16:12 07/29/17 18:56 DC 07/29/17 16:53 200 MLS/HR Vancomycin HCl 1500 mg/Sodium Chloride 530 ml @ 200 mls/hr Q12H IV 07/30/17 02:00 07/30/17 12:41 DC 07/30/17 01:17 200 MLS/HR Sodium Chloride 500 ml @ 999 mls/hr NOW STAT IV 07/29/17 19:43 07/29/17 20:13 DC 07/29/17 20:00 999 MLS/HR Dopamine HCl/ Dextrose (DOPamine 400MG / D5W) 400 mg STK-MED ONCE .ROUTE 07/29/17 20:27 07/29/17 20:28 DC 07/29/17 20:34 400 MG Dobutamine HCl 0 ml @ 0 mls/hr Q0M PRN IV 07/30/17 00:08 08/02/17 07:07 DC 07/31/17 22:30 30.7 MLS/HR Norepinephrine Bitartrate 8 mg/ Dextrose 508 ml @ 0 mls/hr Q0M PRN IV 07/30/17 05:05 08/02/17 06:55 DC 07/30/17 17:55 24 MLS/HR Sodium Bicarbonate (Sodium Bicarbonate 8.4% Inj) 150 ml NOW STAT IV 07/30/17 06:19 07/30/17 06:22 DC 07/30/17 06:27 150 ML Miscellaneous (Rapid Sequence Induction Bag) 1 ea STK-MED ONCE N/A 07/30/17 06:21 07/30/17 06:22 DC 1/31/18 06:50 1 EA Furosemide (Lasix Inj) 40 mg STK-MED ONCE .ROUTE 07/30/17 06:45 07/30/17 06:46 DC 07/30/17 06:49 40 MG Furosemide (Lasix Inj) 40 mg STK-MED ONCE .ROUTE 07/30/17 06:45 07/30/17 06:46 DC 07/30/17 06:50 40 MG Midazolam HCl (Versed Inj) 2 mg Q2H PRN IV 07/30/17 08:45 08/02/17 07:07 DC 07/30/17 11:34 2 MG Fentanyl Citrate (Fentanyl Inj) 100 mcg Q2H PRN IV 07/30/17 08:45 08/02/17 07:07 DC 07/30/17 13:55 100 MCG Vasopressin 50 units/Sodium Chloride 502.5 ml @ 24 mls/hr [id number] IV 07/30/17 08:45 08/02/17 06:55 DC 07/31/17 05:46 24 MLS/HR Magnesium Sulfate 1 gm/Prmx 100 ml @ 100 mls/hr Q1H IV 07/30/17 09:00 07/30/17 10:59 DC 07/30/17 10:18 100 MLS/HR Pantoprazole Sodium 40 mg/ Syringe 10 ml @ 5 mls/min DAILY@11 IV 07/30/17 11:00 08/02/17 06:55 DC 08/01/17 10:52 5 MLS/MIN Aspirin (Aspirin Chew) 81 mg QAM PO 07/31/17 09:00 08/30/17 08:59 08/16/17 08:52 81 MG Furosemide 80 mg/ Syringe 8 ml @ 4 mls/min NOW ONCE IV 07/30/17 18:30 07/30/17 18:31 DC 07/30/17 19:20 4 MLS/MIN Docusate Sodium (coLACE SYRUP) 100 mg QPM PO 07/30/17 21:30 08/02/17 02:13 DC 08/01/17 20:57 100 MG Vancomycin HCl 1750 mg/Sodium Chloride 535 ml @ 200 mls/hr Q24H IV 07/31/17 07:15 07/31/17 15:18 DC 07/31/17 07:47 200 MLS/HR Furosemide 40 mg/ Syringe 4 ml @ 4 mls/min ONE ONCE IV 07/31/17 08:45 07/31/17 08:46 DC 07/31/17 09:08 4 MLS/MIN Potassium Phosphate 21 mmol/ Sodium Chloride 507 ml @ 144.857 mls/hr ONE ONCE IV 07/31/17 08:45 07/31/17 12:14 DC 07/31/17 09:07 144.857 MLS/HR Potassium Chloride 20 meq/ Prmx 100 ml @ 50 mls/hr Q2H IV 07/31/17 09:30 07/31/17 13:29 DC 07/31/17 11:35 50 MLS/HR Vancomycin HCl 1500 mg/Sodium Chloride 530 ml @ 200 mls/hr Q24H IV 08/01/17 01:00 08/01/17 10:14 DC 08/01/17 01:18 200 MLS/HR Potassium Chloride 20 meq/ Prmx 100 ml @ 50 mls/hr Q2H IV 08/01/17 09:30 08/01/17 15:29 DC 08/01/17 13:33 50 MLS/HR Furosemide 30 mg/ Syringe 3 ml @ 4 mls/min BID IV 08/01/17 09:00 08/01/17 18:40 DC 08/01/17 09:33 4 MLS/MIN Vancomycin HCl 1500 mg/Sodium Chloride 530 ml @ 200 mls/hr Q18H IV 08/01/17 19:00 08/04/17 06:46 DC 08/03/17 06:14 200 MLS/HR Potassium/ Phosphorus/Sodium (Phospha 250 Neutral 155-852-130 Mg) 1 tab Q4H PO 08/02/17 02:00 08/02/17 10:01 DC 08/02/17 09:43 1 TAB Potassium Chloride (Klor-Con M10) 20 meq Q4H PO 08/02/17 02:00 08/02/17 10:01 DC 08/02/17 07:35 20 MEQ Docusate Sodium (coLACE CAP) 100 mg QPM PO 08/02/17 21:00 09/01/17 20:59 08/15/17 20:44 100 MG Bumetanide (Bumex Tab) 1 mg QAM PO 08/02/17 09:00 08/09/17 14:53 DC 08/09/17 08:44 1 MG Acetazolamide Sodium 500 mg/ Syringe 5 ml @ 5 mls/min BID IV 08/02/17 09:00 08/02/17 21:00 DC 08/02/17 21:32 5 MLS/MIN Heparin Sodium (Porcine) (Heparin 10 Unit/ ml 5 ml Flush) 5 ml PRN PRN FLUSH 08/02/17 18:15 09/01/17 18:14 08/15/17 09:17 5 ML Vancomycin HCl 1500 mg/Sodium Chloride 530 ml @ 200 mls/hr Q24H IV 08/04/17 09:00 08/06/17 11:17 DC 08/06/17 08:32 200 MLS/HR Metoprolol Succinate (Toprol Xl Tab) 50 mg QAM PO 08/05/17 09:00 09/04/17 08:59 08/16/17 08:49 50 MG Metoprolol Succinate (Toprol Xl Tab) 50 mg 1100 ONCE PO 08/04/17 11:00 08/04/17 11:01 DC 08/04/17 11:21 50 MG Furosemide 40 mg/ Syringe 4 ml @ 4 mls/min NOW ONCE IV 08/06/17 09:30 08/06/17 09:31 DC 08/06/17 09:59 4 MLS/MIN Albuterol/ Ipratropium (Duoneb) 3 ml ONE STAT INH 08/06/17 09:04 08/06/17 09:07 DC 08/06/17 09:25 3 ML Cephalexin Monohydrate (Keflex Cap) 500 mg QID PO 08/06/17 13:00 08/08/17 23:59 DC 08/08/17 21:47 500 MG Furosemide 40 mg/ Syringe 4 ml @ 4 mls/min ONE ONCE IV 08/06/17 14:00 08/06/17 14:01 DC 08/06/17 15:48 4 MLS/MIN Albuterol/ Ipratropium (Duoneb) 3 ml Q4RWA INH 08/06/17 20:00 08/14/17 14:19 DC 08/14/17 07:32 3 ML Furosemide 20 mg/ Syringe 2 ml @ 4 mls/min 1830 ONCE IV 08/06/17 18:30 08/06/17 18:31 DC 08/06/17 19:28 4 MLS/MIN Potassium Chloride (Klor-Con M10) 20 meq 0745 ONCE PO 08/07/17 07:45 08/07/17 07:46 DC 08/07/17 09:24 20 MEQ Potassium Chloride (Klor-Con Tab) 20 meq TODAY@0930 ONCE PO 08/07/17 09:30 08/07/17 09:31 DC 08/07/17 09:24 20 MEQ Potassium Chloride (Klor-Con M10) 10 meq TODAY@1200 ONCE PO 08/07/17 12:00 08/07/17 12:01 DC 08/07/17 12:00 10 MEQ Enalapril Maleate (Vasotec Tab) 20 mg QAM PO 08/08/17 09:00 09/07/17 08:59 08/16/17 08:50 20 MG Polyethylene (Miralax Powder Packet) 17 gm NOW ONCE PO 08/08/17 12:30 08/08/17 12:31 DC 08/08/17 13:23 17 GM Bisacodyl (Dulcolax Supp) 10 mg NOW STAT [place] 08/08/17 12:16 08/08/17 12:20 DC 08/08/17 14:02 10 MG Warfarin Sodium (Coumadin Tab) 3 mg DAILY@16 PO 08/08/17 16:00 09/07/17 15:59 08/15/17 16:02 3 MG Iron Sucrose 100 mg/Sodium Chloride 105 ml @ 420 mls/hr NOW STAT IV 08/09/17 09:14 08/09/17 09:28 DC 08/09/17 09:51 420 MLS/HR Bumetanide (Bumex Tab) 2 mg QAM PO 08/10/17 09:00 08/12/17 16:06 DC 08/12/17 10:01 2 MG Bumetanide 2 mg/ Syringe 8 ml @ 4 mls/min NOW STAT IV 08/09/17 15:04 08/09/17 15:05 DC 08/09/17 15:34 4 MLS/MIN Bumetanide 1 mg/ Syringe 4 ml @ 4 mls/min TODAY@1515 IV 08/10/17 15:15 08/10/17 16:00 DC 08/10/17 16:04 4 MLS/MIN Bumetanide 1 mg/ Syringe 4 ml @ 4 mls/min NOW ONCE IV 08/11/17 11:30 08/11/17 11:31 DC 08/11/17 12:26 4 MLS/MIN Ferrous Sulfate (Feosol Tab) 325 mg QAM PO 08/12/17 09:00 09/11/17 08:59 08/16/17 08:50 325 MG Polyethylene (Miralax Powder Packet) 17 gm NOW ONCE PO 08/11/17 13:30 08/11/17 13:40 DC 08/11/17 13:50 17 GM Bisacodyl (Dulcolax Supp) 10 mg DAILY PRN [place] 08/11/17 13:45 09/10/17 13:44 08/13/17 08:56 10 MG Bumetanide 1 mg/ Syringe 4 ml @ 4 mls/min TODAY@1200 ONCE IV 08/12/17 12:00 08/12/17 12:01 DC 08/12/17 13:02 4 MLS/MIN Bumetanide (Bumex Tab) 2 mg BID PO 08/13/17 09:00 09/01/17 08:59 08/16/17 08:50 2 MG Sodium Chloride ([place] Nasal Hyrum) 225 sprays STK-MED ONCE .ROUTE 08/14/17 12:12 08/14/17 12:13 DC 08/14/17 12:16 225 SPRAYS (Jduie Rivera CRNP) Objective Vital Signs Date Time Temp Pulse Resp B/P (MAP) Pulse Ox O2 Delivery O2 Flow Rate FiO2 08/16/17 09:00 Room Air 08/16/17 08:52 76 101/61 (74) 08/16/17 07:33 36.3 70 20 97/60 (72) 94 08/16/17 00:00 Nasal Cannula 2.0 08/15/17 23:00 36.5 74 20 115/66 (82) 96 Nasal Cannula 2.0 08/15/17 16:00 96 Nasal Cannula 2.5 08/15/17 15:03 36.8 98 20 91/57 (68) 96 08/15/17 14:45 36.6 80 14 97 Nasal Cannula (Judie Rivera CRNP) Physical Exam Notes: General: no distress Eyes: normal inspection, PERLL Respiratory: chest non tender, clear to auscultation, normal breath sounds, no respiratory distress, no accessory muscle use Cardiac: regular rate and rhythm, no rub or gallop, systolic murmur, no edema, no jvd GI/: active bowel sounds, no abd pain or tenderness, soft, non distended Extremities: normal range of motion, normal strength, non tender Neuro/Psych: alert and oriented x 3, normal mood and affect Skin: normal color, dry (Guillard, Judie ., [employer] TRUSS BUILDER) Assessment and Plan 77 y/o M Hx chronic systolic, CAD, CHF, AF, AVR, HTN, HPL, hypothyroidism, CKD II-III, transverse myelitis. Recent hip L fracture (repaired bipolar hemiarthroplasty 06/26/17) followed by admission to [facility] for rehab. D/ Cd from [facility] 2 days [employer]. Reported to the ED for increasing weakness since that time and inability to ambulate. Initial labs were notable for hyperkalemia and a (+) UA, and initial CXR was consistent with vascular congestion. On arrival to the ER it was noted that the pt's 02 sat was as low as 83%. Acute Hypoxic Hypercarbic Respiratory Failure 08/01 Acute on Chronic Systolic CHF and Multifocal Pneumonia/Sepsis/E.faecalis UTI - Patient was intubated on 07/30 and respiratory acidosis improved on subsequent lab draws and extubated on 08/01 - Pressor support off since 08/01 and moved out of ICU to telemetry - Zosyn and Vancomycin discontinued - ID on board - switched to cephalexin - abx to continue until seen by ID outpatient - ABGs 08/06 showed hypercapnea/hypoxia - placed on bipap and given IV lasix, nebs - CXR showed pulmonary congestion - put out almost 4L and oxygenation improved - should continue with bipap while sleeping - Bps and kidney function tolerating diuresis well - transitioned to po bumex bid from IV Anemia - likely anemia of chronic disease as there is no apparent bleeding and MCV is normocytic. INR has been therapeutic since 08/04 - Iron panel was low - given 1 transfusion of iron 08/09, 325 mg iron daily - Did not require PRBC transfusion SANTHOSH on CKD Stage III: - resolved - Creat peaked at 1.85 on 07/30 and trended back down to around 1 - Nephrology consulted - avoid nephrotoxins and maintain a slight negative fluid balance Hyperkalemia - resolved - likely due to potassium not being discontinued when Bumex was discontinue at HS - trended down Hypokalemia - repleated and resolved CAD S/P CABG; AAA/Aortic Dissection; S/P ICD/Pacer; Acute Systolic CHF; Atrial Fibrillation: Supratherapeutic INR - Has bovine valve - INR goal 2-3 - Amiodarone 200 mg daily, Pravastatin 40 mg daily, and ASA 81 mg daily - Restarted Toprol at reduced dosing of 50 mg daily - bps stable - Continued Vasotec - returned to home dose ramipril for discharge - INR supratherapuetic likely due to interactions with other medications vs possible relation to shock/liver? -Coumadin held 08/01 for supratherapeutic INR - INR therapeutic since 08/04 without any coumadin given - restarted 08/08 at reduced dose 3 mg daily Left arm hematoma 08/01 PICC attempt - improving Weakness - neuro consulted - patient has history of transverse myelitis however Dr. Collins does not feel this is currently an issue. - PT/OT CAD - no evidence of ACS - cont ASA, Statin, B xavier. 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 Dunaway who was consulted - no intervention at this time. Renal mass on CT - fu outpatient Constipation - Miralax Dispo: Awaiting placement at [facility] (Judie Rivera ., [place]) i personally examined pt and verified all vitale points w Judith beltran feeling ok waiting on rehab/snf placmeent - apparently insurance company not open over the weekend vitals noted nad breathing unlabored no pallor or icterus respiratory failure improving weakness/deconditioning - needs SNF/rehab - it is quite unfortunate that his insurance company does not practice with enough ethics (closing on weekends despite patients being in hospitals 7 days a week) to recognize that leaving him wtihout safe disposition can potentially compromise his well being, exacerbate his deconditioning, and at the very least delay his recovery (he is too frail to go home but well enough to be able to be safe out of the high risk environment of the hospital - but wtihout approvals that leaves us/him without a safe recourse) (Jerrod Beyer, D.Nicola.)
[2017-08-16 15:47] VITALS: BP 102/68; PULSE 78; TEMP 36.6; O2SAT 94
[2017-08-16] MEDS: WARFARIN SOD 3 MG TAB PO SCH (17:21)
[2017-08-16 19:12] VITALS: BP 138/109; PULSE 80
[2017-08-16] MEDS: PRAVASTATIN SOD 40 MG TAB PO SCH (19:13)
[2017-08-16] MEDS: DOCUSATE SODIUM 100 MG CAP PO SCH (19:13)
[2017-08-16 23:35] VITALS: BP 92/43; PULSE 80; TEMP 36.9; O2SAT 93
[2017-08-17] MEDS: LEVOTHYROXINE 25 MCG TAB PO SCH (06:04)
[2017-08-17 06:49] LABS: HEMATOCRIT 27.6 % (42-52); MEAN CELL VOLUME 90.2 fL (80-100); MEAN CORPUSCULAR HEMOGLOBIN 26.1 pg (25-34); MEAN PLATELET VOLUME 11.2 fL (7.4-10.4); PLATELET COUNT 245 K/uL (130-400); RED CELL DISTRIBUTION WIDTH SD 62.5 fL (36.4-46.3); WHITE BLOOD COUNT 5.35 K/uL (4.8-10.8)
[2017-08-17 07:35] LABS: CALCIUM 8.3 mg/dl (8.5-10.1); CREATININE 1.26 mg/dl (0.60-1.40); POTASSIUM 3.5 mmol/L (3.5-5.1)
[2017-08-17 08:18] VITALS: BP 107/61; PULSE 71; TEMP 36.4; O2SAT 95
[2017-08-17] MEDS: AMIODARONE 200 MG TAB PO SCH (09:13)
[2017-08-17] MEDS: METOPROLOL SUCC 50MG EXT REL TAB PO SCH (09:13)
[2017-08-17] MEDS: FERROUS SULFATE 325 MG TAB PO SCH (09:13)
[2017-08-17] MEDS: ASCORBIC ACID 500 MG TAB PO SCH (09:13)
[2017-08-17] MEDS: BUMETANIDE 1 MG TAB PO SCH ×2 (09:14→20:24)
[2017-08-17] MEDS: ENALAPRIL MALEATE 10 MG TAB PO SCH (09:14)
[2017-08-17] MEDS: ASPIRIN 81 MG CHEW PO SCH (09:19)
--- NOTE | 2017-08-17 14:00 | Hospitalist Progress Note ---
Hospitalist Progress Note Date of Service Aug 17, 2017. (Judie Rivera .[place]) Subjective Pt evaluation today including: conversation w/ patient, physical exam, chart review, lab review, review of inpatient medication list Voiding: no voiding problems Mr. Garcia is doing well today. He has been ambulating the halls. ROS Constitutional: no chills, aches, sweats or fever Respiratory: no sob,cough, sputum, or wheezing Cardiac: no chest pain, palpitations, edema, orthopnea or lightheadedness GI: no abdominal pain, nausea, vomiting, diarrhea or constipation : no dysuria or hesitancy Extremities: no joint pain or weakness Skin: no rash All other systems reviewed and negative (Judie Rivera CRNP) Medications Medications Administered Medications (Trade) Dose Ordered Sig/Deion Route Start Time Stop Time Status Last Admin Dose Admin Sodium Chloride 1,000 ml @ 999 mls/hr Q1H1M STAT IV 07/28/17 19:54 07/28/17 20:54 DC 07/28/17 19:54 999 MLS/HR Cefepime HCl 1000 mg/Dextrose 111 ml @ 200 mls/hr NOW STAT IV 07/28/17 21:20 07/28/17 21:53 DC 07/28/17 21:52 200 MLS/HR Levofloxacin (Levaquin / D5W) 750 mg NOW STAT IV 07/28/17 21:20 07/28/17 21:22 DC 07/28/17 22:13 750 MG Amiodarone HCl (Cordarone Tab) 200 mg QAM PO 07/29/17 09:00 08/28/17 08:59 08/17/17 09:13 200 MG Ascorbic Acid (Vitamin C Tab) 500 mg QAM PO 07/29/17 09:00 08/28/17 08:59 08/17/17 09:13 500 MG Aspirin (Ecotrin Tab) 81 mg QAM PO 07/29/17 09:00 07/30/17 09:26 DC 07/30/17 09:12 81 MG Docusate Sodium (coLACE CAP) 100 mg QPM PO 07/29/17 21:00 07/30/17 21:28 DC 07/29/17 22:13 100 MG Famotidine (Pepcid Tab) 20 mg QAM PO 07/29/17 09:00 07/30/17 09:23 DC 07/30/17 09:13 20 MG Levothyroxine Sodium (Synthroid Tab) 25 mcg DAILYBB PO 07/29/17 06:30 08/28/17 06:59 08/17/17 06:04 25 MCG Metoprolol Succinate (Toprol Xl Tab) 100 mg QAM PO 07/29/17 09:00 07/29/17 19:00 DC 07/29/17 08:17 100 MG Pravastatin Sodium (Pravachol Tab) 40 mg HS PO 07/29/17 21:00 08/28/17 20:59 08/16/17 19:13 40 MG Warfarin Sodium (Coumadin Tab) 5 mg DAILY@16 PO 07/29/17 16:00 08/08/17 13:53 DC 08/04/17 16:28 5 MG Enalapril Maleate (Vasotec Tab) 20 mg QAM PO 07/29/17 09:00 07/29/17 19:00 DC 07/29/17 08:16 20 MG Acetaminophen (Tylenol Tab) 650 mg Q4H PRN PO 07/28/17 22:00 08/27/17 21:59 07/30/17 03:11 650 MG Polyethylene (Miralax Powder Packet) 17 gm DAILY PRN PO 07/28/17 22:00 08/27/17 21:59 08/13/17 08:55 17 GM Furosemide 40 mg/ Syringe 4 ml @ 4 mls/min ONE ONCE IV 07/29/17 03:15 07/29/17 03:16 DC 07/29/17 04:32 4 MLS/MIN Ceftriaxone Sodium 1 gm/ Dextrose 50 ml @ 100 mls/hr Q24H IV 07/29/17 08:00 07/29/17 15:57 DC 07/29/17 08:15 100 MLS/HR Albuterol/ Ipratropium (Duoneb) 3 ml QIDR INH 07/29/17 08:00 07/30/17 18:05 DC 07/29/17 16:25 3 ML Furosemide 40 mg/ Syringe 4 ml @ 4 mls/min 1530 ONCE IV 07/29/17 15:30 07/29/17 15:31 DC 07/29/17 15:33 4 MLS/MIN Piperacillin Sod/ Tazobactam Sod 3.375 gm/Dextrose 115 ml @ 28.75 mls/ hr Q8H IV 07/29/17 22:00 08/06/17 11:16 DC 08/06/17 05:28 28.75 MLS/HR Piperacillin Sod/ Tazobactam Sod 4.5 gm/Dextrose 120 ml @ 200 mls/hr NOW STAT IV 07/29/17 16:11 07/29/17 16:46 DC 07/29/17 16:11 200 MLS/HR Vancomycin HCl 2500 mg/Sodium Chloride 550 ml @ 200 mls/hr NOW STAT IV 07/29/17 16:12 07/29/17 18:56 DC 07/29/17 16:53 200 MLS/HR Vancomycin HCl 1500 mg/Sodium Chloride 530 ml @ 200 mls/hr Q12H IV 07/30/17 02:00 07/30/17 12:41 DC 07/30/17 01:17 200 MLS/HR Sodium Chloride 500 ml @ 999 mls/hr NOW STAT IV 07/29/17 19:43 07/29/17 20:13 DC 07/29/17 20:00 999 MLS/HR Dopamine HCl/ Dextrose (DOPamine 400MG / D5W) 400 mg STK-MED ONCE .ROUTE 07/29/17 20:27 07/29/17 20:28 DC 07/29/17 20:34 400 MG Dobutamine HCl 0 ml @ 0 mls/hr Q0M PRN IV 07/30/17 00:08 08/02/17 07:07 DC 07/31/17 22:30 30.7 MLS/HR Norepinephrine Bitartrate 8 mg/ Dextrose 508 ml @ 0 mls/hr Q0M PRN IV 07/30/17 05:05 08/02/17 06:55 DC 07/30/17 17:55 24 MLS/HR Sodium Bicarbonate (Sodium Bicarbonate 8.4% Inj) 150 ml NOW STAT IV 07/30/17 06:19 07/30/17 06:22 DC 07/30/17 06:27 150 ML Miscellaneous (Rapid Sequence Induction Bag) 1 ea STK-MED ONCE N/A 07/30/17 06:21 07/30/17 06:22 DC 07/30/17 06:50 1 EA Furosemide (Lasix Inj) 40 mg STK-MED ONCE .ROUTE 07/30/17 06:45 07/30/17 06:46 DC 07/30/17 06:49 40 MG Furosemide (Lasix Inj) 40 mg STK-MED ONCE .ROUTE 07/30/17 06:45 07/30/17 06:46 DC 07/30/17 06:50 40 MG Midazolam HCl (Versed Inj) 2 mg Q2H PRN IV 07/30/17 08:45 08/02/17 07:07 DC 07/30/17 11:34 2 MG Fentanyl Citrate (Fentanyl Inj) 100 mcg Q2H PRN IV 07/30/17 08:45 08/02/17 07:07 DC 07/30/17 13:55 100 MCG Vasopressin 50 units/Sodium Chloride 502.5 ml @ 24 mls/hr [id number] IV 07/30/17 08:45 08/02/17 06:55 DC 07/31/17 05:46 24 MLS/HR Magnesium Sulfate 1 gm/Prmx 100 ml @ 100 mls/hr Q1H IV 07/30/17 09:00 07/30/17 10:59 DC 07/30/17 10:18 100 MLS/HR Pantoprazole Sodium 40 mg/ Syringe 10 ml @ 5 mls/min DAILY@11 IV 07/30/17 11:00 08/02/17 06:55 DC 08/01/17 10:52 5 MLS/MIN Aspirin (Aspirin Chew) 81 mg QAM PO 07/31/17 09:00 08/30/17 08:59 08/17/17 09:19 81 MG Furosemide 80 mg/ Syringe 8 ml @ 4 mls/min NOW ONCE IV 07/30/17 18:30 07/30/17 18:31 DC 07/30/17 19:20 4 MLS/MIN Docusate Sodium (coLACE SYRUP) 100 mg QPM PO 07/30/17 21:30 08/02/17 02:13 DC 08/01/17 20:57 100 MG Vancomycin HCl 1750 mg/Sodium Chloride 535 ml @ 200 mls/hr Q24H IV 07/31/17 07:15 07/31/17 15:18 DC 07/31/17 07:47 200 MLS/HR Furosemide 40 mg/ Syringe 4 ml @ 4 mls/min ONE ONCE IV 07/31/17 08:45 07/31/17 08:46 DC 07/31/17 09:08 4 MLS/MIN Potassium Phosphate 21 mmol/ Sodium Chloride 507 ml @ 144.857 mls/hr ONE ONCE IV 07/31/17 08:45 07/31/17 12:14 DC 07/31/17 09:07 144.857 MLS/HR Potassium Chloride 20 meq/ Prmx 100 ml @ 50 mls/hr Q2H IV 07/31/17 09:30 07/31/17 13:29 DC 07/31/17 11:35 50 MLS/HR Vancomycin HCl 1500 mg/Sodium Chloride 530 ml @ 200 mls/hr Q24H IV 08/01/17 01:00 08/01/17 10:14 DC 08/01/17 01:18 200 MLS/HR Potassium Chloride 20 meq/ Prmx 100 ml @ 50 mls/hr Q2H IV 08/01/17 09:30 08/01/17 15:29 DC 08/01/17 13:33 50 MLS/HR Furosemide 30 mg/ Syringe 3 ml @ 4 mls/min BID IV 08/01/17 09:00 08/01/17 18:40 DC 08/01/17 09:33 4 MLS/MIN Vancomycin HCl 1500 mg/Sodium Chloride 530 ml @ 200 mls/hr Q18H IV 08/01/17 19:00 08/04/17 06:46 DC 08/03/17 06:14 200 MLS/HR Potassium/ Phosphorus/Sodium (Phospha 250 Neutral 155-852-130 Mg) 1 tab Q4H PO 08/02/17 02:00 08/02/17 10:01 DC 08/02/17 09:43 1 TAB Potassium Chloride (Klor-Con M10) 20 meq Q4H PO 08/02/17 02:00 08/02/17 10:01 DC 08/02/17 07:35 20 MEQ Docusate Sodium (coLACE CAP) 100 mg QPM PO 08/02/17 21:00 09/01/17 20:59 08/16/17 19:13 100 MG Bumetanide (Bumex Tab) 1 mg QAM PO 08/02/17 09:00 08/09/17 14:53 DC 08/09/17 08:44 1 MG Acetazolamide Sodium 500 mg/ Syringe 5 ml @ 5 mls/min BID IV 08/02/17 09:00 08/02/17 21:00 DC 08/02/17 21:32 5 MLS/MIN Heparin Sodium (Porcine) (Heparin 10 Unit/ ml 5 ml Flush) 5 ml PRN PRN FLUSH 08/02/17 18:15 09/01/17 18:14 08/17/17 05:36 5 ML Vancomycin HCl 1500 mg/Sodium Chloride 530 ml @ 200 mls/hr Q24H IV 08/04/17 09:00 08/06/17 11:17 DC 08/06/17 08:32 200 MLS/HR Metoprolol Succinate (Toprol Xl Tab) 50 mg QAM PO 08/05/17 09:00 09/04/17 08:59 08/17/17 09:13 50 MG Metoprolol Succinate (Toprol Xl Tab) 50 mg 1100 ONCE PO 08/04/17 11:00 08/04/17 11:01 DC 08/04/17 11:21 50 MG Furosemide 40 mg/ Syringe 4 ml @ 4 mls/min NOW ONCE IV 08/06/17 09:30 08/06/17 09:31 DC 08/06/17 09:59 4 MLS/MIN Albuterol/ Ipratropium (Duoneb) 3 ml ONE STAT INH 08/06/17 09:04 08/06/17 09:07 DC 08/06/17 09:25 3 ML Cephalexin Monohydrate (Keflex Cap) 500 mg QID PO 08/06/17 13:00 08/08/17 23:59 DC 08/08/17 21:47 500 MG Furosemide 40 mg/ Syringe 4 ml @ 4 mls/min ONE ONCE IV 08/06/17 14:00 08/06/17 14:01 DC 08/06/17 15:48 4 MLS/MIN Albuterol/ Ipratropium (Duoneb) 3 ml Q4RWA INH 08/06/17 20:00 08/14/17 14:19 DC 08/14/17 07:32 3 ML Furosemide 20 mg/ Syringe 2 ml @ 4 mls/min 1830 ONCE IV 08/06/17 18:30 08/06/17 18:31 DC 08/06/17 19:28 4 MLS/MIN Potassium Chloride (Klor-Con M10) 20 meq 0745 ONCE PO 08/07/17 07:45 08/07/17 07:46 DC 08/07/17 09:24 20 MEQ Potassium Chloride (Klor-Con Tab) 20 meq TODAY@0930 ONCE PO 08/07/17 09:30 08/07/17 09:31 DC 08/07/17 09:24 20 MEQ Potassium Chloride (Klor-Con M10) 10 meq TODAY@1200 ONCE PO 08/07/17 12:00 08/07/17 12:01 DC 08/07/17 12:00 10 MEQ Enalapril Maleate (Vasotec Tab) 20 mg QAM PO 08/08/17 09:00 09/07/17 08:59 08/17/17 09:14 20 MG Polyethylene (Miralax Powder Packet) 17 gm NOW ONCE PO 08/08/17 12:30 08/08/17 12:31 DC 08/08/17 13:23 17 GM Bisacodyl (Dulcolax Supp) 10 mg NOW STAT AK 08/08/17 12:16 08/08/17 12:20 DC 08/08/17 14:02 10 MG Warfarin Sodium (Coumadin Tab) 3 mg DAILY@16 PO 08/08/17 16:00 09/07/17 15:59 08/16/17 17:21 3 MG Iron Sucrose 100 mg/Sodium Chloride 105 ml @ 420 mls/hr NOW STAT IV 08/09/17 09:14 08/09/17 09:28 DC 08/09/17 09:51 420 MLS/HR Bumetanide (Bumex Tab) 2 mg QAM PO 08/10/17 09:00 08/12/17 16:06 DC 08/12/17 10:01 2 MG Bumetanide 2 mg/ Syringe 8 ml @ 4 mls/min NOW STAT IV 08/09/17 15:04 08/09/17 15:05 DC 08/09/17 15:34 4 MLS/MIN Bumetanide 1 mg/ Syringe 4 ml @ 4 mls/min TODAY@1515 IV 08/10/17 15:15 08/10/17 16:00 DC 08/10/17 16:04 4 MLS/MIN Bumetanide 1 mg/ Syringe 4 ml @ 4 mls/min NOW ONCE IV 08/11/17 11:30 08/11/17 11:31 DC 08/11/17 12:26 4 MLS/MIN Ferrous Sulfate (Feosol Tab) 325 mg QAM PO 08/12/17 09:00 09/11/17 08:59 08/17/17 09:13 325 MG Polyethylene (Miralax Powder Packet) 17 gm NOW ONCE PO 08/11/17 13:30 08/11/17 13:40 DC 08/11/17 13:50 17 GM Bisacodyl (Dulcolax Supp) 10 mg DAILY PRN [place] 08/11/17 13:45 09/10/17 13:44 08/13/17 08:56 10 MG Bumetanide 1 mg/ Syringe 4 ml @ 4 mls/min TODAY@1200 ONCE IV 08/12/17 12:00 08/12/17 12:01 DC 08/12/17 13:02 4 MLS/MIN Bumetanide (Bumex Tab) 2 mg BID PO 08/13/17 09:00 09/01/17 08:59 08/17/17 09:14 2 MG Sodium Chloride (Basco Nasal Wells) 225 sprays STK-MED ONCE .ROUTE 08/14/17 12:12 08/14/17 12:13 DC 08/14/17 12:16 225 SPRAYS (Judie Rivera CRNP) Objective Vital Signs Date Time Temp Pulse Resp B/P (MAP) Pulse Ox O2 Delivery O2 Flow Rate FiO2 08/17/17 09:15 Nasal Cannula 2.0 08/17/17 08:18 36.4 71 16 107/61 (76) 95 Nasal Cannula 2.0 08/17/17 00:00 Nasal Cannula 2.0 08/16/17 23:35 36.9 80 20 92/43 (59) 93 Nasal Cannula 2.0 08/16/17 20:00 Nasal Cannula 2.0 08/16/17 19:12 80 138/109 (119) 08/16/17 15:47 36.6 78 20 102/68 (79) 94 2.0 08/16/17 15:38 Room Air (Judie Rivera CRNP) Physical Exam Notes: General: no distress Eyes: normal inspection, PERLL Respiratory: chest non tender, faint expiratory wheezes bilateral bases, no respiratory distress, no accessory muscle use Cardiac: regular rate and rhythm, no rub or gallop, systolic murmur, no edema, no jvd GI/: active bowel sounds, no abd pain or tenderness, soft, non distended Extremities: normal range of motion, normal strength, non tender Neuro/Psych: alert and oriented x 3, normal mood and affect Skin: normal color, dry (Judie Rivera CRNP) Laboratory Results Last 24 Hours Test 08/17/17 05:36 White Blood Count 5.35 K/uL Red Blood Count 3.06 M/uL Hemoglobin 8.0 g/dL Hematocrit 27.6 % Mean Corpuscular Volume 90.2 fL Mean Corpuscular Hemoglobin 26.1 pg Mean Corpuscular Hemoglobin Concent 29.0 g/dl RDW Standard Deviation 62.5 fL RDW Coefficient of Variation 19.0 % Platelet Count 245 K/uL Mean Platelet Volume 11.2 fL Sodium Level 141 mmol/L Potassium Level 3.5 mmol/L Chloride Level 96 mmol/L Carbon Dioxide Level 38 mmol/L Anion Gap 4.0 mmol/L Blood Urea Nitrogen 29 mg/dl Creatinine 1.26 mg/dl Est Creatinine Clear Calc Drug Dose 53.9 ml/min Estimated GFR () 63.3 Estimated GFR (Non- 54.7 BUN/Creatinine Ratio 22.9 Random Glucose 81 mg/dl Calcium Level 8.3 mg/dl (Judie Rivera CRNP) Assessment and Plan 77 y/o M Hx chronic systolic, CAD, CHF, AF, AVR, HTN, HPL, hypothyroidism, CKD II-III, transverse myelitis. Recent hip L fracture (repaired bipolar hemiarthroplasty 06/26/17) followed by admission to [facility] for rehab. D/ Cd from [facility] 2 days [employer]. Reported to the ED for increasing weakness since that time and inability to ambulate. Initial labs were notable for hyperkalemia and a (+) UA, and initial CXR was consistent with vascular congestion. On arrival to the ER it was noted that the pt's 02 sat was as low as 83%. Acute Hypoxic Hypercarbic Respiratory Failure 2/2 Acute on Chronic Systolic CHF and Multifocal Pneumonia/Sepsis/E.faecalis UTI - Patient was intubated on 07/30 and respiratory acidosis improved on subsequent lab draws and extubated on 08/01 - Pressor support off since 08/01 and moved out of ICU to telemetry - Zosyn and Vancomycin discontinued - ID on board - switched to cephalexin - abx to continue until seen by ID outpatient - ABGs 08/06 showed hypercapnea/hypoxia - placed on bipap and given IV lasix, nebs - CXR showed pulmonary congestion - put out almost 4L and oxygenation improved - should continue with bipap while sleeping - Bps and kidney function tolerating diuresis well - transitioned to po bumex bid from IV - patient has diuresed about 14 liters at this point Anemia - likely anemia of chronic disease as there is no apparent bleeding and MCV is normocytic. INR has been therapeutic since 08/04 - Iron panel was low - given 1 transfusion of iron 08/09, 325 mg iron daily - Did not require PRBC transfusion SANTHOSH on CKD Stage III: - resolved - Creat peaked at 1.85 on 07/30 and trended back down to around 1 - 1.26 today - Nephrology consulted - avoid nephrotoxins and maintain a slight negative fluid balance Hyperkalemia - resolved - likely due to potassium not being discontinued when Bumex was discontinue at HS - trended down Hypokalemia - repleated and resolved CAD S/P CABG; AAA/Aortic Dissection; S/P ICD/Pacer; Acute Systolic CHF; Atrial Fibrillation: Supratherapeutic INR - Has bovine valve - INR goal 2-3 - Amiodarone 200 mg daily, Pravastatin 40 mg daily, and ASA 81 mg daily - Restarted Toprol at reduced dosing of 50 mg daily - bps stable - Continued Vasotec - returned to home dose ramipril for discharge - INR supratherapuetic likely due to interactions with other medications vs possible relation to shock/liver? -Coumadin held 08/01 for supratherapeutic INR - INR therapeutic since 08/04 without any coumadin given - restarted 08/08 at reduced dose 3 mg daily - continues to be therapeutic Left arm hematoma 08/01 PICC attempt - resolved Weakness - neuro consulted - patient has history of transverse myelitis however Dr. Collins does not feel this is currently an issue. - PT/OT CAD - no evidence of ACS - cont ASA, Statin, B xavier. 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 Dunaway who was consulted - no intervention at this time. 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
[2017-08-17 16:01] VITALS: BP 119/69; PULSE 80; TEMP 36.7; O2SAT 94
[2017-08-17] MEDS: WARFARIN SOD 3 MG TAB PO SCH (16:06)
[2017-08-17 20:20] VITALS: BP 114/65; PULSE 80; O2SAT 95
[2017-08-17] MEDS: DOCUSATE SODIUM 100 MG CAP PO SCH (20:34)
[2017-08-17] MEDS: PRAVASTATIN SOD 40 MG TAB PO SCH (20:34)
[2017-08-17 22:54] VITALS: BP 96/62; PULSE 76; TEMP 36.6; O2SAT 96
[2017-08-18 05:48] LABS: INR 2.9 (0.9-1.1)
[2017-08-18] MEDS: LEVOTHYROXINE 25 MCG TAB PO SCH (06:38)
[2017-08-18 07:23] VITALS: BP 131/63; PULSE 73; TEMP 36.7; O2SAT 93
[2017-08-18] MEDS: METOPROLOL SUCC 50MG EXT REL TAB PO SCH (08:44)
[2017-08-18] MEDS: FERROUS SULFATE 325 MG TAB PO SCH (08:44)
[2017-08-18] MEDS: ENALAPRIL MALEATE 10 MG TAB PO SCH (08:44)
[2017-08-18] MEDS: BUMETANIDE 1 MG TAB PO SCH ×2 (08:45→21:27)
[2017-08-18] MEDS: ASCORBIC ACID 500 MG TAB PO SCH (08:45)
[2017-08-18] MEDS: AMIODARONE 200 MG TAB PO SCH (08:45)
[2017-08-18] MEDS: ASPIRIN 81 MG CHEW PO SCH (09:24)
[2017-08-18 11:00] VITALS: O2SAT 93
[2017-08-18 16:27] VITALS: BP 107/52; PULSE 70; TEMP 36.6; O2SAT 96
[2017-08-18] MEDS: WARFARIN SOD 3 MG TAB PO SCH (17:19)
[2017-08-18] MEDS: PRAVASTATIN SOD 40 MG TAB PO SCH (21:24)
[2017-08-18] MEDS: DOCUSATE SODIUM 100 MG CAP PO SCH (21:26)
[2017-08-18 23:01] VITALS: BP 108/61; PULSE 72; TEMP 37.3; O2SAT 96
[2017-08-19] MEDS: LEVOTHYROXINE 25 MCG TAB PO SCH (06:30)
[2017-08-19 06:40] LABS: HEMATOCRIT 28.3 % (42-52); HEMOGLOBIN 8.3 g/dL (14.0-18.0); MEAN CORPUSCULAR HEMOGLOBIN 26.1 pg (25-34); MEAN CORPUSCULAR HGB CONC 29.3 g/dl (32-36); MEAN PLATELET VOLUME 10.7 fL (7.4-10.4); PLATELET COUNT 215 K/uL (130-400); RED CELL DISTRIBUTION WIDTH CV 18.5 % (11.5-14.5); RED CELL DISTRIBUTION WIDTH SD 60.2 fL (36.4-46.3); WHITE BLOOD COUNT 5.13 K/uL (4.8-10.8)
[2017-08-19 06:47] LABS: INR 2.8 (0.9-1.1)
[2017-08-19 07:16] LABS: CALCIUM 8.1 mg/dl (8.5-10.1); CREATININE 1.24 mg/dl (0.60-1.40); POTASSIUM 3.5 mmol/L (3.5-5.1)
[2017-08-19 07:18] VITALS: BP 114/65; PULSE 82; TEMP 36.6; O2SAT 93
[2017-08-19] MEDS: FERROUS SULFATE 325 MG TAB PO SCH (08:50)
[2017-08-19] MEDS: ENALAPRIL MALEATE 10 MG TAB PO SCH (08:50)
[2017-08-19] MEDS: ASCORBIC ACID 500 MG TAB PO SCH (08:50)
[2017-08-19] MEDS: BUMETANIDE 1 MG TAB PO SCH (08:50)
[2017-08-19] MEDS: METOPROLOL SUCC 50MG EXT REL TAB PO SCH (08:50)
[2017-08-19] MEDS: AMIODARONE 200 MG TAB PO SCH (08:50)
[2017-08-19] MEDS: ASPIRIN 81 MG CHEW PO SCH (08:54)
[2017-08-19 11:10] VITALS: BP 114/65; PULSE 82; TEMP 36.6; O2SAT 93
--- NOTE | 2017-08-19 12:54 | Progress Note ---
Progress Note Date of Service Aug 19, 2017. Progress Note seen/examined, chart reviewed. insurance company inexplicably did not return decision yesterday, delaying patient's ability to transfer to SNF. fortunately no adverse events occurred obvious to their delay in his care. having difficulty w urination - requiring straight cath q6, is to be resumed on his flomax vitals noted nad breathing unlabored no pallor or icterus respiratory failure, weakness, BPH w urinary retention -still stable for transfer to SNF w rehab emphasis - as per yesterday's discharge summary straight cath q6 prn, resume flomax, notes he has urology appt in a week or two already scheduled
== END 2017-08-19 15:46 | DRG 853 ==
LOC: C.EDB 17:59 → UNDOADMIN 22:16 → C.MED 22:16 → EDBEDREQSVC 22:21 → CANRESERV 23:24 → ENRESERV 23:24 → C.MED 07-29 19:41 → C.MSICU 07-29 19:41 → C.2E 08-04 19:00 → ENRESERV 08-13 13:46 → C.4E 08-13 14:41 → C.2E 08-13 14:41
PROVIDERS: ADMIT Internal Medicine; ATTEND Family Medicine
PROC: 02HV33Z Insertion of Infusion Device into Superior Vena Cava, Percutaneous Approach (ICD-10-PCS; 2017-07-29)
PROC: 03HY32Z Insertion of Monitoring Device into Upper Artery, Percutaneous Approach (ICD-10-PCS; 2017-07-29)
PROC: B246ZZZ Ultrasonography of Right and Left Heart (ICD-10-PCS; 2017-07-29)
PROC: BB4BZZZ Ultrasonography of Pleura (ICD-10-PCS; 2017-07-29)
PROC: 0BH17EZ Insertion of Endotracheal Airway into Trachea, Via Natural or Artificial Opening (ICD-10-PCS; principal; 2017-07-30)
PROC: 5A1945Z Respiratory Ventilation, 24-96 Consecutive Hours (ICD-10-PCS; principal; 2017-07-30)
PROC: 0BW Respiratory System, Revision (ICD-10-PCS; principal; 2017-07-30)
DX: A41.9 Sepsis, unspecified organism (principal); J96.01 Acute respiratory failure with hypoxia; I13.0 Hypertensive heart and chronic kidney disease with heart failure and stage 1 through stage 4 chronic kidney disease, or unspecified chronic kidney disease; I50.23 Acute on chronic systolic (congestive) heart failure; N39.0 Urinary tract infection, site not specified; J96.02 Acute respiratory failure with hypercapnia; N17.9 Acute kidney failure, unspecified; I71.02 Dissection of abdominal aorta; I42.9 Cardiomyopathy, unspecified; R57.0 Cardiogenic shock; G81.90 Hemiplegia, unspecified affecting unspecified side; R65.21 Severe sepsis with septic shock; I48.1 Persistent atrial fibrillation; I97.638 Postprocedural hematoma of a circulatory system organ or structure following other circulatory system procedure; I25.10 Atherosclerotic heart disease of native coronary artery without angina pectoris; E03.9 Hypothyroidism, unspecified; J44.1 Chronic obstructive pulmonary disease with (acute) exacerbation; N40.1 Benign prostatic hyperplasia with lower urinary tract symptoms; G09 Sequelae of inflammatory diseases of central nervous system; Z95.2 Presence of prosthetic heart valve; Z79.82 Long term (current) use of aspirin; E87.5 Hyperkalemia; N18.3 Chronic kidney disease, stage 3 (moderate); B96.89 Other specified bacterial agents as the cause of diseases classified elsewhere; D64.9 Anemia, unspecified; K59.00 Constipation, unspecified; R33.9 Retention of urine, unspecified; Z95.1 Presence of aortocoronary bypass graft; Z87.891 Personal history of nicotine dependence; Z95.810 Presence of automatic (implantable) cardiac defibrillator; Z66 Do not resuscitate; Z98.890 Other specified postprocedural states; Y71.2 Prosthetic and other implants, materials and accessory cardiovascular devices associated with adverse incidents; Y92.239 Unspecified place in hospital as the place of occurrence of the external cause; I48.91 Unspecified atrial fibrillation

== ENCOUNTER → 2017-08-25 | Outpatient (CLI) | payer OTHER ==
[~2017-08-25] MED LIST changes: +BMX1 PO; +CMD3 PO; -CMD5 PO; -ETOMIDATE 2 MG/ML 20 ML VIAL IV ONE; -FENTANYL CITRATE INJ 50 MCG/1 ML 2 ML VIAL IV ONE; +FRRS300 PO; -METO-479 PO; -MIDAZOLAM HCL 5 MG/ML 2ML VIAL IV ONE; -NITR-5 PO; -SUCCINYLCHOLINE CHLORIDE 20 MG/ML 10 ML VIAL IV ONE; +TPRSR50 PO; -VECURONIUM BROMIDE 10 MG VIAL IV ONE
[2017-08-25 09:31] LABS: BLOOD UREA NITROGEN 38 mg/dl (7-18); CALCIUM 8.1 mg/dl (8.5-10.1); CARBON DIOXIDE 43 mmol/L (21-32); CREATININE 1.34 mg/dl (0.60-1.40); GLUCOSE 88 mg/dl (70-99); POTASSIUM 3.8 mmol/L (3.5-5.1); SODIUM 140 mmol/L (136-145)
[2017-08-25 10:03] LABS: INR 4.6 (0.9-1.1)
== END ==
LOC: C.LABCC 08:56
PROVIDERS: ATTEND Internal Medicine
DX: I48.91 Unspecified atrial fibrillation (principal); N18.9 Chronic kidney disease, unspecified

== ENCOUNTER → 2017-08-26 | Outpatient (CLI) | payer OTHER ==
[2017-08-26 13:09] LABS: INR 5.3 (0.9-1.1)
== END ==
LOC: C.LABCC 12:23
PROVIDERS: ATTEND Internal Medicine
DX: I48.91 Unspecified atrial fibrillation (principal)

== ENCOUNTER → 2017-08-28 | Outpatient (CLI) | payer OTHER ==
[2017-08-28 09:57] LABS: INR 3.9 (0.9-1.1)
== END ==
LOC: C.LABCC 08:40
PROVIDERS: ATTEND Internal Medicine
DX: I48.91 Unspecified atrial fibrillation (principal)

== ENCOUNTER → 2017-09-01 | Outpatient (CLI) | payer OTHER ==
[2017-09-01 08:41] LABS: INR 2.3 (0.9-1.1)
== END ==
LOC: C.LABCC 08:23
PROVIDERS: ATTEND Internal Medicine
DX: I48.91 Unspecified atrial fibrillation (principal)

== ENCOUNTER → 2017-09-02 | Outpatient (CLI) | payer OTHER ==
[2017-09-02 08:28] LABS: BLOOD UREA NITROGEN 38 mg/dl (7-18); CALCIUM 8.4 mg/dl (8.5-10.1); CARBON DIOXIDE 39 mmol/L (21-32); CREATININE 1.31 mg/dl (0.60-1.40); GLUCOSE 91 mg/dl (70-99); POTASSIUM 4.4 mmol/L (3.5-5.1); SODIUM 139 mmol/L (136-145)
== END ==
LOC: C.LABCC 07:39
PROVIDERS: ATTEND Internal Medicine
DX: I50.9 Heart failure, unspecified (principal)

== ENCOUNTER → 2017-09-08 | Outpatient (CLI) | payer OTHER ==
[2017-09-08 09:16] LABS: INR 1.9 (0.9-1.1)
== END ==
LOC: C.LABCC 08:47
PROVIDERS: ATTEND Internal Medicine
DX: I48.91 Unspecified atrial fibrillation (principal)

== ENCOUNTER → 2017-09-16 | Outpatient (CLI) | payer OTHER ==
[2017-09-16 08:33] LABS: INR 2.9 (0.9-1.1)
== END ==
LOC: C.LABCC 08:01
PROVIDERS: ATTEND Internal Medicine
DX: I48.91 Unspecified atrial fibrillation (principal)

== ENCOUNTER 2017-09-20 22:02 | Emergency (ER) | payer OTHER ==
[~2017-09-20] VITALS: Ht 175.3 cm; Wt 84.0 kg
[2017-09-20 22:14] VITALS: Ht 175.3 cm; Wt 84.0 kg
[2017-09-20 23:23] VITALS: BP 90/50; PULSE 75; TEMP 36.8; O2SAT 99
--- NOTE | 2017-09-20 23:46 | EMERGENCY ROOM VISIT NOTE ---
History Report prepared by Nirali: Lisa Choudhury Under the Supervision of: Dr. Ernesto Mera D.O. First contact with patient: 22:19 Chief Complaint: WOUND RECHECK Stated Complaint: WOUND CHECK, PATCH REPLACEMENT History of Present Illness The patient is a 77 year old male who presents to the Emergency Room for a wound recheck. The patient has had a wound on his left buttock since last Carlos. He notes the wound itself has been improving. Today the wound vac patch fell off. They placed an emergency patch and came to the ED to have it replaced. His next wound care appointment is in 2 days. He denies any fever, chills, nausea, vomiting, redness, pain, swelling, or abdominal pain. He notes his blood pressure is always low. He is currently on Keflex. He is eating and drinking well. Source of History: patient, family Onset: today Position: buttock (left) Quality: other (wound recheck) Timing: other (episodic) Associated Symptoms: No fevers, No chills, No nausea, No vomiting, No abdominal pain Review of Systems See HPI for pertinent positives & negatives. A total of 10 systems reviewed and were otherwise negative. Past Medical & Surgical Medical Problems: (1) A-fib (2) Abdom Aortic Aneurysm (3) Acute on chronic renal insufficiency (4) Acute on chronic systolic CHF (congestive heart failure) (5) Anemia of chronic disease (6) Aortic dissection, thoracic (7) Bacteremia due to Gram-negative bacteria (8) Beta-hemolytic group B streptococcal sepsis (9) Buttock wound (10) CAD (coronary artery disease) (11) Cardiogenic shock (12) Chronic Kidney Disease, Unspecified (13) Chronic Obstructive Pulmonary Disease W (Acute) Exacerbation (14) Fever (15) Gram positive septicemia (16) H/O thrombosis (17) H/O: pneumonia (18) HTN (hypertension) (19) HTN (hypertension) (20) Hyperkalemia (21) Hyperlipidemia, Unspecified (22) Hypertrophy (Benign) Of Prostate W/O Urinary Obst & Oth Luts (23) Hypotension (24) Hypothyroidism, Unspecified (25) Lower extremity weakness (26) Lumbar back pain (27) Presence of combination internal cardiac defibrillator (ICD) and pacemaker (28) Transverse myelitis Surgical Problems: (1) aortic valve replacement with cadaver valve (2) Aortocoronary Bypass (3) H/O aortic valve replacement with porcine valve (4) History of aortic valve replacement with metallic valve Family History Cancer Diabetes mellitus Social History Smoking Status: Former Smoker Alcohol Use: none Drug Use: none Marital Status: Housing Status: lives with significant other Occupation Status: retired Current/Historical Medications Scheduled Amiodarone HCl (Amiodarone HCl), 200 MG PO QAM Ascorbic Acid (Vitamin C), 1 TAB PO QAM Aspirin (Aspirin), 81 MG PO QAM Bumetanide (Bumetanide), 2 MG PO BID Cephalexin Monohydrate (Keflex), 500 MG PO TID Docusate Sodium (Docusate Sodium), 100 MG PO QPM Famotidine (Famotidine), 20 MG PO QAM Ferrous Sulfate (Ferrous Sulfate), 325 MG PO QAM Levothyroxine Sodium (Levothyroxine Sodium), 25 MCG PO QAM Metoprolol Succinate (Metoprolol Succinate ER), 50 MG PO QAM Multivitamin (Multivitamin), 1 TAB PO QAM Nitroglycerin (Nitrostat), 0.4 MG UT PRN Potassium Chloride (Potassium Chloride Er), 10 MEQ BID Pravastatin Sodium (Pravastatin Sodium), 40 MG HS Ramipril (Ramipril), 5 MG PO QAM Tamsulosin HCl (Tamsulosin HCl), 0.4 MG PO HS Warfarin Sod (Coumadin), 3 MG PO DAILY@16 Allergies Coded Allergies: Adhesives (Verified Allergy, Unknown, removed skin, 09/20/17) Physical Exam Vital Signs Date Time Temp Pulse Resp B/P (MAP) Pulse Ox O2 Delivery O2 Flow Rate FiO2 09/20/17 23:23 36.8 75 17 90/50 99 Room Air 09/20/17 22:14 36.9 77 17 81/51 99 Room Air Physical Exam GENERAL: Patient is awake, alert, and in no acute distress. Patient is resting comfortably and showing no signs of anxiety EYES: The conjunctivae are clear. The pupils are round and reactive. EARS, NOSE, MOUTH AND THROAT: The nose is without any evidence of any deformity. Mucous membranes are moist tongue is midline NECK: The neck is nontender and supple. RESPIRATORY: Normal respiratory effort is noted there is no evidence of wheezing rhonchi or rales CARDIOVASCULAR: Regular rate and rhythm noted there no murmurs rubs or gallops normal S1 normal S2 GASTROINTESTINAL: The abdomen is soft. Bowel sounds are present in all quadrants. Abdomen is nontender MUSCULOSKELETAL/EXTREMITIES: There is no evidence of gross deformity full range of motion is noted in the hips and shoulders SKIN: There is pedal edema bilaterally. Skin is warm and dry. There was a sacral /left gluteal pressure ulcer noted with a dressing in place. There was no crepitus or surrounding erythema. NEUROLOGIC: Patient is awake alert and oriented x3 Medical Decision & Procedures ED Course 222: The patient was evaluated in room B7. A complete history and physical examination were performed. 2240: Upon reevaluation, the patient is resting comfortably. I discussed the results and treatment plan with him and his family. They verbalized agreement of the treatment plan. He was discharged home. Medical Decision Prior records reviewed and summarized as above. Triage Nursing notes reviewed. Additional history obtained from family. Differential diagnosis: Etiologies such as cellulitis, abscess, MRSA infection, DVT, necrotizing fasciitis, dermatitis, drug eruption, as well as others were entertained.. The patient is a 77-year-old male who presented to emergency department because his wound VAC was malfunctioning. The patient has a chronic healing ulcer on his sacrum and left buttocks region. The wound VAC started to come off in the family members were concerned about this because their loved one has gone through a significant amount of time and effort to heal this wound. The patient was found to have low blood pressure however the family member state that his blood pressure is normally at this level. The patient had wound care instructions done by nursing. They were encouraged to continue these wound care changes until he followed up with wound care center on Friday. I also recommended that they return to the emergency department immediately if symptoms change worsen or the need arises. Medication Reconcilliation Current Medication List: was personally reviewed by me Blood Pressure Screening Patient's blood pressure: Low blood pressure Impression Primary Impression: Pressure ulcer Scribe Attestation The scribe's documentation has been prepared under my direction and personally reviewed by me in its entirety. I confirm that the note above accurately reflects all work, treatment, procedures, and medical decision making performed by me. Departure Information Dispostion Home / Self-Care Referrals Byron Vizcaino M.D. (PCP) Forms HOME CARE DOCUMENTATION FORM, IMPORTANT VISIT INFORMATION, WORK / SCHOOL INSTRUCTIONS Patient Instructions My [facility], Pressure Ulcer Tx Clean Dress Additional Instructions Continue to dress the wound as instructed. Continue all medications as prescribed. Follow-up with wound care center this week. Problem Qualifiers Primary Impression: Pressure ulcer Pressure ulcer location: buttock Pressure ulcer stage: unspecified pressure ulcer stage Laterality: left Qualified Codes: L89.329 - Pressure ulcer of left buttock, unspecified stage
== END 2017-09-20 23:24 | disposition home or self-care (01) ==
LOC: C.EDB 22:04
DX: L89.329 Pressure ulcer of left buttock, unspecified stage (principal); I48.91 Unspecified atrial fibrillation; I25.10 Atherosclerotic heart disease of native coronary artery without angina pectoris; N18.9 Chronic kidney disease, unspecified; J44.9 Chronic obstructive pulmonary disease, unspecified; I10 Essential (primary) hypertension; E87.5 Hyperkalemia; E78.5 Hyperlipidemia, unspecified; N40.0 Benign prostatic hyperplasia without lower urinary tract symptoms; E03.9 Hypothyroidism, unspecified; Z83.3 Family history of diabetes mellitus; Z87.891 Personal history of nicotine dependence; Z79.82 Long term (current) use of aspirin; Z79.01 Long term (current) use of anticoagulants; Z51.81 Encounter for therapeutic drug level monitoring

== ENCOUNTER → 2017-09-25 | Outpatient (CLI) | payer OTHER ==
[~2017-09-25] MED LIST changes: +OPTIRAY 320 IV PRN; +PHYT100T PO
--- NOTE | 2017-09-25 09:59 | DIAGNOSTIC IMAGING REPORT ---
CT PELVIS W/IV CONT ONLY (CT) CT DOSE: 563.84 mGycm CLINICAL HISTORY: Nonhealing wound TECHNIQUE: The patient was scanned in a dynamic helical fashion during intravenous administration 91 cc Optiray 320. No oral contrast was administered. A dose lowering technique was utilized adhering to the principles of ALARA. COMPARISON STUDY: 07/30/2017 FINDINGS: There is partial visualization of a 9.4 cm right lower pole renal cyst. There is partial visualization of an infrarenal abdominal aortic dissection. The aorta measures 37 mm. There is a right common iliac artery aneurysm measuring 2.8 cm in diameter. There is a dissection flap visualized within the right external iliac artery. There is moderate bladder wall thickening. There is a small amount of free fluid within the pelvis. There is artifact secondary to a left hip arthroplasty. There is a persistent left inguinal hernia containing fat and a portion of the left colon. There is a complex fluid and gas collection within the left gluteus elijah muscle, consistent with an infectious process. This measures 68 x 22 by 64 mm. There is overlying skin thickening, and there is a suspected overlying cutaneous ulceration. There are no associated bony destructive changes. IMPRESSION: 1. Abdominal aortic aneurysm or dissection 2. Right common iliac artery aneurysm. 3. Right external iliac artery dissection. 4. Bowel containing left inguinal hernia 5. Significant bladder wall thickening 6. Small amount of free fluid in the pelvis 7. Gas and fluid collection within the left gluteus elijah muscle, consistent with an an infectious process. There is overlying skin thickening and suspected overlying changes ulceration. No adjacent bony destructive changes are visualized Electronically signed by: Hernando Du M.D. 09/25/2017 9:58 AM Dictated Date/Time: 09/25/2017 9:46 AM
[2017-09-25 10:15] LABS: INR 9.7 (0.9-1.1)
== END | disposition home or self-care (01) ==
LOC: C.CTS 09:09
PROVIDERS: ATTEND Physician Assistant
DX: I48.91 Unspecified atrial fibrillation (principal); S31.000A Unspecified open wound of lower back and pelvis without penetration into retroperitoneum, initial encounter; X58.XXXA Exposure to other specified factors, initial encounter; I71.4 Abdominal aortic aneurysm, without rupture; K40.90 Unilateral inguinal hernia, without obstruction or gangrene, not specified as recurrent

== ENCOUNTER 2017-10-13 08:57 | Inpatient (IN) | payer OTHER ==
[2017-10-13] VITALS (8 sets, daily range): BP systolic 85–102; BP diastolic 49–59; PULSE 59–98; TEMP 36.6–36.9; O2SAT 90–98; Ht 175.3 cm; Wt 96.4 kg
[~2017-10-13] VITALS: Ht 175.3 cm; Wt 96.4 kg
[~2017-10-13 08:57] MED LIST changes: -OPTIRAY 320 IV PRN
[2017-10-13] MEDS ORDERED: ACETAMINOPHEN 325 MG TAB PO PRN (12:30)
--- NOTE | 2017-10-13 12:55 | Medical Consult ---
Consultation Date of Consultation: Oct 13, 2017. Attending Physician: Hector Cardozo MD History of Present Illness 77 y/o male with left buttock ulcer for the past 3-4 months that developed after admissions for left hip fracture (06/15) and respiratory failure/CHF (08/17 ). Has been following with the wound care center and referred to Dr. Orozco for draining wound with tunneling and CT showing gas and fluid collection within the left gluteus elijah muscle consistent with an infectious process. Debridement in OR is planned for later this week. Past Medical/Surgical History Medical Problems: (1) Abdom Aortic Aneurysm Status: Chronic (2) Aortic dissection, thoracic Status: Chronic (3) CAD (coronary artery disease) Status: Chronic (4) Chronic Kidney Disease, Unspecified Status: Chronic (5) Chronic Obstructive Pulmonary Disease W (Acute) Exacerbation Status: Chronic (6) Closed left hip fracture Status: Acute (7) Complication of catheter Status: Acute (8) HTN (hypertension) Status: Chronic (9) Hyperlipidemia, Unspecified Status: Chronic (10) Hypertrophy (Benign) Of Prostate W/O Urinary Obst & Oth Luts Status: Chronic (11) Hypothyroidism, Unspecified Status: Chronic (12) 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 (13) Urinary retention Status: Acute Surgical Problems: (1) 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 (2) Aortocoronary Bypass Status: Chronic (3) 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 4 left hip bipolar for fx 06/15 Family History Cancer Diabetes mellitus Social History Smoking Status: Former Smoker Drug Use: none Marital Status: Housing Status: lives with significant other Occupation Status: retired Allergies Coded Allergies: Adhesives (Verified Allergy, Unknown, removed skin, 09/20/17) Review of Systems Constitutional: No fever, No chills Respiratory: No cough, No shortness of breath Physical Exam Date Time Temp Pulse Resp B/P (MAP) Pulse Ox O2 Delivery O2 Flow Rate FiO2 10/13/17 11:30 36.9 59 16 93/59 (70) 98 Room Air 10/13/17 11:20 98 Room Air General Appearance: no apparent distress Respiratory/Chest: lungs clear Cardiovascular: regular rate, rhythm Abdomen/GI: non tender, soft Skin: + pertinent finding (sacral area with duoderm dressing placed on admission) Laboratory Results Last 24 Hours Test 10/13/17 12:25 CT PELVIS W/IV CONT ONLY (CT) CT DOSE: 563.84 mGycm CLINICAL HISTORY: Nonhealing wound TECHNIQUE: The patient was scanned in a dynamic helical fashion during intravenous administration 91 cc Optiray 320. No oral contrast was administered. A dose lowering technique was utilized adhering to the principles of ALARA. COMPARISON STUDY: 07/30/2017 FINDINGS: There is partial visualization of a 9.4 cm right lower pole renal cyst. There is partial visualization of an infrarenal abdominal aortic dissection. The aorta measures 37 mm. There is a right common iliac artery aneurysm measuring 2.8 cm in diameter. There is a dissection flap visualized within the right external iliac artery. There is moderate bladder wall thickening. There is a small amount of free fluid within the pelvis. There is artifact secondary to a left hip arthroplasty. There is a persistent left inguinal hernia containing fat and a portion of the left colon. There is a complex fluid and gas collection within the left gluteus elijah muscle, consistent with an infectious process. This measures 68 x 22 by 64 mm. There is overlying skin thickening, and there is a suspected overlying cutaneous ulceration. There are no associated bony destructive changes. IMPRESSION: 1. Abdominal aortic aneurysm or dissection 2. Right common iliac artery aneurysm. 3. Right external iliac artery dissection. 4. Bowel containing left inguinal hernia 5. Significant bladder wall thickening 6. Small amount of free fluid in the pelvis 7. Gas and fluid collection within the left gluteus elijah muscle, consistent with an an infectious process. There is overlying skin thickening and suspected overlying changes ulceration. No adjacent bony destructive changes are visualized Electronically signed by: Hernando Du M.D. 09/25/2017 9:58 AM Dictated Date/Time: 09/25/2017 9:46 AM Assessment & Plan left buttock decubitus ulcer/ draining abscess Chronic wound will need debridement in the OR, likely wound vac post-op. Has extensive medical/cardiac history and is being admitted for medical optimization , bridging of anticoagulation. Will ask ID to see as well. Tentatively plan for OR on Friday.
[2017-10-13] MEDS ORDERED: CMD3 PO (13:09)
[2017-10-13 13:23] LABS: CALCIUM 8.2 mg/dl (8.5-10.1); CREATININE 1.48 mg/dl (0.60-1.40)
[2017-10-13 13:38] LABS: INR 2.2 (0.9-1.1)
[2017-10-13] MEDS ORDERED: NITROGLYCERIN 0.4 MG SL PER TAB CHARGE UT PRN (13:45)
[2017-10-13] MEDS ORDERED: PIPERACILL/TAZOBAC CONSULT ACTIVE PRN (13:45)
[2017-10-13] MEDS ORDERED: VANCOMYCIN CONSULT ACTIVE PRN (13:45)
[2017-10-13 13:52] LABS: HEMATOCRIT 31.3 % (42-52); MEAN CORPUSCULAR HEMOGLOBIN 23.9 pg (25-34); MEAN CORPUSCULAR HGB CONC 28.8 g/dl (32-36); PLATELET COUNT 151 K/uL (130-400); RED CELL DISTRIBUTION WIDTH CV 17.6 % (11.5-14.5); RED CELL DISTRIBUTION WIDTH SD 53.1 fL (36.4-46.3); WHITE BLOOD COUNT 6.38 K/uL (4.8-10.8)
[2017-10-13 14:13] LABS: BASO % 0.3 %; BASO ABS # 0.02 K/uL (0-0.2); EOS % 3.1 %; IG# 0.02 K/uL (0.00-0.02); LYMPH % 21.3 %; LYMPH ABS # 1.36 K/uL (1.2-3.4); MONO % 12.4 %; MONO ABS # 0.79 K/uL (0.11-0.59); NEUT % 62.6 %; NEUT ABS # 3.99 K/uL (1.4-6.5)
[2017-10-13] MEDS ORDERED: PIPERACILL/TAZOBAC IV 3.375 GM in NSS 100 ML IV ONE (14:15)
--- NOTE | 2017-10-13 14:23 | History and Physical ---
History & Physical Date & Time of Service: Oct 13, 2017 at 13:36 Chief Complaint: Ducubitus Ulcer Primary Care Physician: Byron Vizcaino M.D. History of Present Illness Mr. Garcia 77 y/o M Hx chronic systolic, CAD, CHF, AF, AVR, HTN, HPL, hypothyroidism, CKD II-III, transverse myelitis, AAA, aortic dissection, recent pneumonia and UTI, anemia. He presents for surgical intervention of a sacral decubitus. He is not currently having any pain. He is able to walk about 180 feet with a walker before becoming winded. He reports being very out of shape from all of his time in the hospital. He also has a chronic cough with white sputum for a couple of months. ROS Constitutional: no chills, aches, sweats or fever Respiratory: see HPI Cardiac: no chest pain, palpitations, edema, orthopnea or lightheadedness GI: no abdominal pain, nausea, vomiting, diarrhea or constipation : no dysuria or hesitancy Extremities: no joint pain or weakness Skin: no rash All other systems reviewed and negative Past Medical/Surgical History Medical Problems: (1) A-fib (2) Abdom Aortic Aneurysm (3) Acute on chronic renal insufficiency (4) Acute on chronic systolic CHF (congestive heart failure) (5) Acute respiratory failure with hypoxia and hypercapnia (6) Anemia of chronic disease (7) Aortic dissection, thoracic (8) Bacteremia due to Gram-negative bacteria (9) Beta-hemolytic group B streptococcal sepsis (10) Buttock wound (11) CAD (coronary artery disease) (12) Cardiogenic shock (13) Chronic Kidney Disease, Unspecified (14) Chronic Obstructive Pulmonary Disease W (Acute) Exacerbation (15) Closed left hip fracture (16) Complication of catheter (17) Decubitus ulcer (18) Fever (19) Gram positive septicemia (20) H/O thrombosis (21) H/O: pneumonia (22) HTN (hypertension) (23) HTN (hypertension) (24) Hyperkalemia (25) Hyperlipidemia, Unspecified (26) Hypertrophy (Benign) Of Prostate W/O Urinary Obst & Oth Luts (27) Hypotension (28) Hypothyroidism, Unspecified (29) Hypoxia (30) Lower extremity weakness (31) Lumbar back pain (32) Pleural effusion (33) Presence of combination internal cardiac defibrillator (ICD) and pacemaker (34) Pressure ulcer (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 (36) Urinary retention Surgical Problems: (1) aortic valve replacement with cadaver valve (2) Aortocoronary Bypass (3) H/O aortic valve replacement with porcine valve (4) History of aortic valve replacement with metallic valve Family History Cancer Diabetes mellitus Social History Smoking Status: Former Smoker Smokeless Tobacco Use: No Alcohol Use: none Drug Use: none Marital Status: Housing status: lives with family Occupational Status: retired Immunizations History of Influenza Vaccine: No History of Tetanus Vaccine?: Yes History of Pneumococcal: Yes Pneumococcal Date: Apr 08, 2002 History of Hepatitis B Vaccine: No Allergies Coded Allergies: Adhesives (Verified Allergy, Unknown, removed skin, 09/20/17) Home Medications Scheduled Amiodarone HCl (Amiodarone HCl), 200 MG PO QAM Ascorbic Acid (Vitamin C), 1 TAB PO QAM Aspirin (Aspirin), 81 MG PO QAM Bumetanide (Bumetanide), 2 MG PO BID Cephalexin Monohydrate (Keflex), 500 MG PO TID Docusate Sodium (Docusate Sodium), 100 MG PO QPM Famotidine (Famotidine), 20 MG PO QAM Ferrous Sulfate (Ferrous Sulfate), 325 MG PO QAM Levothyroxine Sodium (Levothyroxine Sodium), 25 MCG PO QAM Metoprolol Succinate (Metoprolol Succinate ER), 50 MG PO QAM Multivitamin (Multivitamin), 1 TAB PO QAM Nitroglycerin (Nitrostat), 0.4 MG UT PRN Potassium Chloride (Potassium Chloride Er), 10 MEQ BID Pravastatin Sodium (Pravastatin Sodium), 40 MG HS Ramipril (Ramipril), 5 MG PO QAM Tamsulosin HCl (Tamsulosin HCl), 0.4 MG PO HS Warfarin Sod (Coumadin), 1.25 MG PO DAILY@16 Physical Exam Vital Signs Date Time Temp Pulse Resp B/P (MAP) Pulse Ox O2 Delivery O2 Flow Rate FiO2 10/13/17 12:50 98 Room Air 10/13/17 11:30 36.9 59 16 93/59 (70) 98 Room Air 10/13/17 11:20 98 Room Air General: no distress Eyes: normal inspection, PERLL Respiratory: chest non tender, clear to auscultation, normal breath sounds, no respiratory distress, no accessory muscle use Cardiac: regular rate and rhythm, no rub or gallop, no murmur, +2 pitting edema lower extremities GI/: active bowel sounds, no abd pain or tenderness, soft, non distended Extremities: normal range of motion, generalized weakness, non tender Neuro/Psych: alert and oriented x 3, normal mood and affect Skin: normal color, dry, sacral decubitus draining thick white drainage Diagnostics Laboratory Results Results Past 24 Hours Test 10/13/17 12:47 10/13/17 13:19 Range/Units Sodium Level 138 136-145 mmol/L Potassium Level 4.0 3.5-5.1 mmol/L Chloride Level 104 98-107 mmol/L Carbon Dioxide Level 32 21-32 mmol/L Anion Gap 2.0 3-11 mmol/L Blood Urea Nitrogen 31 7-18 mg/dl Creatinine 1.48 0.60-1.40 mg/dl Est Creatinine Clear Calc Drug Dose 46.0 ml/min Estimated GFR () 52.1 Estimated GFR (Non- 45.0 BUN/Creatinine Ratio 20.8 10-20 Random Glucose 97 70-99 mg/dl Calcium Level 8.2 8.5-10.1 mg/dl EKG Sinus rhythm with 1st degree A-V block Left bundle branch block Abnormal ECG When compared with ECG of 31-JUL-2017 22:15, Sinus rhythm has replaced Wide QRS rhythm Impression Assessment and Plan Mr. Garcia is a 77 year old man here for surgical intervention of a sacral decubitus Ulcer Sacral Decubitus Ulcer - admit med surg - Consult general surgery - cbc, prp, inr - Vanc, zosyn - npo after mn - CXR pending - EKG with LBBB which is chronic - BC, wound culture CAD S/P CABG; AAA/Aortic Dissection; S/P ICD/Pacer; Chronic Systolic CHF; Atrial Fibrillation: - continue Bumex bid, amiodarone, metoprolol - Coumadin held for possible procedure Friday - patient held since Friday - INR pending CKD III - patient's creatinine slightly elevated at 1.48, baseline around 1-1.3 - will trend prp, hold NADEEM, but given patient's history of significant CHF with hypoxic failure, I would not hold Bumex unless creat continues to trend upward - avoid nephrotoxins where possible Hypothyroid - continue levothyroxine BPH - continue tamsulosin Plan is for surgery on Friday. Patient's kidney function is slightly suboptimal, EKG is baseline, awaiting CXR to assess for acute pulmonary changes before surgery. RCRI 6.6% of major cardiac event during surgery. Patient will need PT/OT following surgery DIETARY TECH Physician Supervision Note: I interviewed and examined the patient. Discussed with Judie Rivera DIETARY TECH and agree with findings and plan as documented in the note. Any exceptions or clarifications are listed here: None Patient was seen in the company of his . He is admitted from Dr. Orozco's office for progressive sacral decubitus ulcer in need of surgical debridement he previously was here with chronic hypoxic respiratory failure cardia myopathy with an AICD and atrial fibrillation he currently has had stable medical conditions and is here mostly for progression of this likely infected sacral decubitus ulcer present on admission staging to be performed by the land acquisition specialist Vital signs are stable on presentation cardiac exam is distant regular there are no murmurs his lungs are clear the wheezes or crackles he has no JVD is absent abdomen is normal active bowel sounds soft and nontender Patient be placed on vancomycin and Zosyn with infectious disease following with surgical evaluation for possible debridement of his sacral decubitus wound wound care to follow for dressing changes and pressure offloading continuing treatment for his previous cardiopathy and atrial fibrillation Documented By: Vijay Stack Advanced Directives Existing Living Will: No Existing Power of Degreaser Operator: No Resuscitation Status VTE Prophylaxis Will order VTE Prophylaxis: Yes
[2017-10-13] MEDS ORDERED: VANCOMYCIN IV 2,250 MG in SODIUM CHLORIDE 0.9% 500ML 500 ML IV ONE (14:30)
--- NOTE | 2017-10-13 14:55 | DIAGNOSTIC IMAGING REPORT ---
CHEST 2 VIEWS ROUTINE CLINICAL HISTORY: history of pna COMPARISON STUDY: 08/14/2017 FINDINGS: Mild stable cardiomegaly. Prior median sternotomy and moderate improvement in aeration left lung base. Improved aeration right base with a decrease in a small right effusion. IMPRESSION: Improving aeration both lung bases. Mild residual atelectatic change. Moderate residual cardiomegaly The above report was generated using voice recognition software. It may contain grammatical, syntax or spelling errors. Electronically signed by: Jayant Vazquez M.D. 10/13/2017 2:54 PM Dictated Date/Time: 10/13/2017 2:39 PM
--- NOTE | 2017-10-13 15:09 | Pharmacy Progress Note ---
Pharmacy Abx Initial Consult Date of Service Oct 13, 2017. Pharmacy Dosing Scope Date of Consult: 10/13/17 Consultation requested by: CHARLOTTE Duenas Pharmacy is consulted to initiate vancomycin and Zosyn IV dosing therapy, order appropriate labs and adjust drug dose/frequency. Subjective The patient is a 77 year old male admitted on Oct 13, 2017 at 12:30. Objective Height (Feet): 5 Height (Inches): 9.00 Weight (Kilograms): 88.600 Vital Signs (Past 12Hrs) Vital Signs Past 12 Hours Date Time Temp Pulse Resp B/P (MAP) Pulse Ox O2 Delivery O2 Flow Rate FiO2 10/13/17 12:50 98 Room Air 10/13/17 11:30 36.9 59 16 93/59 (70) 98 Room Air 10/13/17 11:20 98 Room Air Lab Results (24Hrs) Laboratory Tests (24 Hours) Test 10/13/17 12:47 White Blood Count 6.38 K/uL (4.8-10.8) Red Blood Count 3.77 M/uL (4.7-6.1) L Hemoglobin 9.0 g/dL (14.0-18.0) L Hematocrit 31.3 % (42-52) L Mean Corpuscular Volume 83.0 fL (80-100) Mean Corpuscular Hemoglobin 23.9 pg (25-34) L Mean Corpuscular Hemoglobin Concent 28.8 g/dl (32-36) L Platelet Count 151 K/uL (130-400) Neutrophils (%) (Auto) 62.6 % Lymphocytes (%) (Auto) 21.3 % Monocytes (%) (Auto) 12.4 % Eosinophils (%) (Auto) 3.1 % Basophils (%) (Auto) 0.3 % Neutrophils # (Auto) 3.99 K/uL (1.4-6.5) Lymphocytes # (Auto) 1.36 K/uL (1.2-3.4) Monocytes # (Auto) 0.79 K/uL (0.11-0.59) H Eosinophils # (Auto) 0.20 K/uL (0-0.5) Basophils # (Auto) 0.02 K/uL (0-0.2) Micro Results Date/Time Source Procedure Growth Status 10/13/17 14:54 Blood Blood Culture Pending Received 10/13/17 14:42 Blood Blood Culture Pending Received Risk Factors for Resistance * Hospitalization for 48 hours or more within the past 90 days * Antimicrobial use within the last 90 days: Keflex Assessment & Plan Assessment 77 year old male admitted for chronic L buttock ulcer with draining abscess. Has been followed by the wound clinic for quite some time, and recently restarted on Keflex. Plan Vancomycin IV * Pharmacy has followed patient on vancomycin before, so will utilize previous data to determine initial dosing. Will need to monitor SCr closely. * Loading dose: 2250 mg (25 mg/kg) * Maintenance dose: 1250 mg IV (14 mg/kg) every 18 hours * Goal trough level for skin/skin structure without culture data : 15-20 mcg/mL * Trough level ordered for 10/15/17 prior to the 4th dose Piperacillin/tazobactam * 3.375 g bolus administered over 30 minutes, then 3.375 g IV extended infusion every 8 hours for CrCl greater than 20 mL/min Pharmacy will continue to follow and will adjust dose/frequency as necessary. Thank you.
--- NOTE | 2017-10-13 15:16 | Medical Consult ---
Consultation Date of Consultation: Oct 13, 2017. Attending Physician: Hector Cardozo MD Reason for Consultation: Decubitus ulcer History of Present Illness 77-year-old male known to the Infectious Disease service with history hypertension, hyperlipidemia, chronic kidney disease, with 3-4 month history of poorly healing left gluteal ulceration following hospitalization in May for hip fracture. Has had recent worsening with evidence abscess formation, and patient now admitted for surgical debridement. CT scan shows significant tunneling of infection. Patient has not had any associated fever or chills. Previous cultures have been positive for Proteus and methicillin sensitive Staph aureus. Currently being treated with IV vancomycin and Zosyn. Cultures are pending. Past Medical/Surgical History Medical Problems: (1) Abdom Aortic Aneurysm Status: Chronic (2) Aortic dissection, thoracic Status: Chronic (3) CAD (coronary artery disease) Status: Chronic (4) Chronic Kidney Disease, Unspecified Status: Chronic (5) Chronic Obstructive Pulmonary Disease W (Acute) Exacerbation Status: Chronic (6) Closed left hip fracture Status: Acute (7) Complication of catheter Status: Acute (8) HTN (hypertension) Status: Chronic (9) Hyperlipidemia, Unspecified Status: Chronic (10) Hypertrophy (Benign) Of Prostate W/O Urinary Obst & Oth Luts Status: Chronic (11) Hypothyroidism, Unspecified Status: Chronic (12) 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 (13) Urinary retention Status: Acute Surgical Problems: (1) 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 (2) Aortocoronary Bypass Status: Chronic (3) 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 Family History Cancer Diabetes mellitus Social History Smoking Status: Former Smoker Smokeless Tobacco Use: No Alcohol Use: none Drug Use: none Marital Status: Housing Status: lives with significant other Occupation Status: retired Allergies Coded Allergies: Adhesives (Verified Allergy, Unknown, removed skin, 09/20/17) Current Inpatient Medications Current Inpatient Medications Medications (Trade) Dose Ordered Sig/Deion Route Start Time Stop Time Status Last Admin Dose Admin Acetaminophen (Tylenol Tab) 650 mg Q4H PRN PO 10/13/17 12:30 11/12/17 12:29 Vancomycin HCl 1250 mg/Sodium Chloride 275 ml @ 125 mls/hr Q18H IV 10/14/17 08:00 10/23/17 23:59 Miscellaneous Information (Consult) 1 ea UD PRN N/A 10/13/17 13:45 11/12/17 13:44 Piperacillin Sod/ Tazobactam Sod 3.375 gm/Sodium Chloride 115 ml @ 28.75 mls/ hr Q8H IV 10/13/17 20:00 10/23/17 19:59 Miscellaneous Information (Consult) 1 ea UD PRN N/A 10/13/17 13:45 11/12/17 13:44 Amiodarone HCl (Cordarone Tab) 200 mg QAM PO 10/14/17 09:00 11/13/17 08:59 Ascorbic Acid (Vitamin C Tab) 500 mg QAM PO 10/14/17 09:00 11/13/17 08:59 Bumetanide (Bumex Tab) 2 mg BID PO 10/13/17 21:00 11/12/17 20:59 Docusate Sodium (coLACE CAP) 100 mg PM PO 10/13/17 21:00 11/12/17 20:59 Famotidine (Pepcid Tab) 20 mg QAM PO 10/14/17 09:00 11/13/17 08:59 Ferrous Sulfate (Feosol Tab) 325 mg QAM PO 10/14/17 09:00 11/13/17 08:59 Levothyroxine Sodium (Synthroid Tab) 25 mcg DAILYBB PO 10/14/17 06:00 11/13/17 05:59 Metoprolol Succinate (Toprol Xl Tab) 50 mg QAM PO 10/14/17 09:00 11/13/17 08:59 Multivitamins (Multivitamin Tab) 1 tab QAM PO 10/14/17 09:00 11/13/17 08:59 Nitroglycerin (Nitrostat Tab) 0.4 mg Q5M PRN UT 10/13/17 13:45 11/12/17 13:44 Pravastatin Sodium (Pravachol Tab) 40 mg HS PO 10/13/17 21:00 11/12/17 20:59 Tamsulosin HCl (Flomax Cap) 0.4 mg HS PO 10/13/17 21:00 11/12/17 20:59 Potassium Chloride (Klor-Con M10) 10 meq BID PO 10/13/17 21:00 11/12/17 20:59 Vancomycin HCl 2250 mg/Sodium Chloride 545 ml @ 200 mls/hr 1430 ONCE IV 10/13/17 14:30 10/13/17 17:13 Review of Systems All systems were reviewed and are negative except as per HPI Physical Exam Date Time Temp Pulse Resp B/P (MAP) Pulse Ox O2 Delivery O2 Flow Rate FiO2 10/13/17 12:50 98 Room Air 10/13/17 11:30 36.9 59 16 93/59 (70) 98 Room Air 10/13/17 11:20 98 Room Air General Appearance: WD/WN, no apparent distress Head: normocephalic, atraumatic Eyes: normal inspection, EOMI, sclerae normal ENT: normal ENT inspection, pharynx normal Neck: supple, no adenopathy, thyroid normal, trachea midline Respiratory/Chest: chest non-tender, lungs clear, normal breath sounds, no respiratory distress Cardiovascular: regular rate, rhythm, no gallop, no murmur Abdomen/GI: normal bowel sounds, non tender, soft, no organomegaly Back: normal inspection, no CVA tenderness Extremities/Musculoskelatal: no calf tenderness, non-tender Neurologic/Psych: alert, oriented x 3 Skin: normal color, no rash, + pertinent finding (Infected left gluteal ulcer) Lymphatic: no adenopathy Laboratory Results Date/Time Source Procedure Growth Status 10/13/17 14:54 Blood Blood Culture Pending Received 10/13/17 14:42 Blood Blood Culture Pending Received Last 24 Hours Test 10/13/17 12:47 10/13/17 13:19 White Blood Count 6.38 K/uL Red Blood Count 3.77 M/uL Hemoglobin 9.0 g/dL Hematocrit 31.3 % Mean Corpuscular Volume 83.0 fL Mean Corpuscular Hemoglobin 23.9 pg Mean Corpuscular Hemoglobin Concent 28.8 g/dl Platelet Count 151 K/uL Neutrophils (%) (Auto) 62.6 % Lymphocytes (%) (Auto) 21.3 % Monocytes (%) (Auto) 12.4 % Eosinophils (%) (Auto) 3.1 % Basophils (%) (Auto) 0.3 % Neutrophils # (Auto) 3.99 K/uL Lymphocytes # (Auto) 1.36 K/uL Monocytes # (Auto) 0.79 K/uL Eosinophils # (Auto) 0.20 K/uL Basophils # (Auto) 0.02 K/uL RDW Standard Deviation 53.1 fL RDW Coefficient of Variation 17.6 % Immature Granulocyte % (Auto) 0.3 % Immature Granulocyte # (Auto) 0.02 K/uL Giant Platelets 2+ Hypochromasia PRESENT Poikilocytosis PRESENT Anisocytosis PRESENT Ovalocytes 1+ Sodium Level 138 mmol/L Potassium Level 4.0 mmol/L Chloride Level 104 mmol/L Carbon Dioxide Level 32 mmol/L Anion Gap 2.0 mmol/L Blood Urea Nitrogen 31 mg/dl Creatinine 1.48 mg/dl Est Creatinine Clear Calc Drug Dose 46.0 ml/min Estimated GFR () 52.1 Estimated GFR (Non- 45.0 BUN/Creatinine Ratio 20.8 Random Glucose 97 mg/dl Calcium Level 8.2 mg/dl Prothrombin Time 22.7 SECONDS Prothromb Time International Ratio 2.2 CHEST 2 VIEWS ROUTINE CLINICAL HISTORY: history of pna COMPARISON STUDY: 08/14/2017 FINDINGS: Mild stable cardiomegaly. Prior median sternotomy and moderate improvement in aeration left lung base. Improved aeration right base with a decrease in a small right effusion. IMPRESSION: Improving aeration both lung bases. Mild residual atelectatic change. Moderate residual cardiomegaly The above report was generated using voice recognition software. It may contain grammatical, syntax or spelling errors. Electronically signed by: Jayant Vazquez M.D. 10/13/2017 2:54 PM Assessment & Plan Worsening left gluteal infection with probable abscess formation awaiting surgical debridement and drainage. Previous cultures positive for sensitive Proteus and MSSA. Current treatment with vancomycin and Zosyn appropriate pending further culture results. Will follow.
[2017-10-13] MEDS ORDERED: SODIUM CHLORIDE 0.9% 250ML 250 ML IV ONE (20:15)
[2017-10-13] MEDS: TAMSULOSIN HCL 0.4 MG CAP PO SCH (20:46)
[2017-10-13] MEDS: POTASSIUM CHLORIDE 10 MEQ TABCR PO SCH (20:46)
[2017-10-13] MEDS: DOCUSATE SODIUM 100 MG CAP PO SCH (20:46)
[2017-10-13] MEDS: PIPERACILL/TAZOBAC IV 3.375 GM in SODIUM CHLORIDE 0.9% 100ML 100 ML IV SCH (20:46)
[2017-10-13] MEDS: PRAVASTATIN SOD 40 MG TAB PO SCH (20:47)
[2017-10-13] MEDS: BOOST PLUS VANILLA PO SCH (20:47)
[2017-10-13] MEDS ORDERED: BUMETANIDE 1 MG TAB PO SCH (21:00)
[2017-10-14] VITALS (11 sets, daily range): BP systolic 89–100; BP diastolic 52–62; PULSE 87–94; TEMP 35.4–37.1; O2SAT 76–98
[2017-10-14] MEDS: PIPERACILL/TAZOBAC IV 3.375 GM in SODIUM CHLORIDE 0.9% 100ML 100 ML IV SCH ×3 (03:43→20:21)
[2017-10-14] MEDS: LEVOTHYROXINE 25 MCG TAB PO SCH (05:24)
[2017-10-14 07:04] LABS: INR 2.1 (0.9-1.1)
[2017-10-14 07:20] LABS: HEMATOCRIT 31.6 % (42-52); HEMOGLOBIN 9.1 g/dL (14.0-18.0); MEAN CELL VOLUME 82.9 fL (80-100); MEAN CORPUSCULAR HEMOGLOBIN 23.9 pg (25-34); MEAN CORPUSCULAR HGB CONC 28.8 g/dl (32-36); PLATELET COUNT 156 K/uL (130-400); RED CELL DISTRIBUTION WIDTH CV 17.5 % (11.5-14.5); RED CELL DISTRIBUTION WIDTH SD 53.5 fL (36.4-46.3); WHITE BLOOD COUNT 7.41 K/uL (4.8-10.8)
[2017-10-14 07:30] LABS: CALCIUM 8.1 mg/dl (8.5-10.1); CREATININE 1.55 mg/dl (0.60-1.40); POTASSIUM 4.2 mmol/L (3.5-5.1)
--- NOTE | 2017-10-14 07:46 | Surgery Progress Note ---
Surgery Progress Note Date of Service Oct 14, 2017. Subjective no complaints- on IV atbx Objective Vital Signs: Date Time Temp Pulse Resp B/P (MAP) Pulse Ox O2 Delivery O2 Flow Rate FiO2 10/14/17 03:57 92 Nasal Cannula 1.0 10/14/17 03:57 36.6 89 22 100/55 (70) 85 Room Air 10/13/17 23:55 36.6 91 24 95/58 (70) 91 Room Air 10/13/17 23:15 Room Air 10/13/17 22:15 102/54 (70) 10/13/17 19:59 85/49 (61) 10/13/17 19:13 36.8 98 16 86/55 (65) 90 Room Air 10/13/17 16:05 36.9 91 18 94/58 (70) 92 Room Air 10/13/17 15:30 Room Air 10/13/17 12:50 98 Room Air 10/13/17 11:30 36.9 59 16 93/59 (70) 98 Room Air 10/13/17 11:20 98 Room Air General Appearance: no apparent distress Respiratory/Chest: no respiratory distress Incision(s): drainage (expected from gluteal ulcer site) Laboratory Results: Results Past 24 Hours Test 10/13/17 12:47 10/13/17 13:19 10/14/17 06:33 Range/Units White Blood Count 6.38 7.41 4.8-10.8 K/uL Red Blood Count 3.77 3.81 4.7-6.1 M/uL Hemoglobin 9.0 9.1 14.0-18.0 g/dL Hematocrit 31.3 31.6 42-52 % Mean Corpuscular Volume 83.0 82.9 80-100 fL Mean Corpuscular Hemoglobin 23.9 23.9 25-34 pg Mean Corpuscular Hemoglobin Concent 28.8 28.8 32-36 g/dl Platelet Count 151 156 130-400 K/uL Neutrophils (%) (Auto) 62.6 % Lymphocytes (%) (Auto) 21.3 % Monocytes (%) (Auto) 12.4 % Eosinophils (%) (Auto) 3.1 % Basophils (%) (Auto) 0.3 % Neutrophils # (Auto) 3.99 1.4-6.5 K/uL Lymphocytes # (Auto) 1.36 1.2-3.4 K/uL Monocytes # (Auto) 0.79 0.11-0.59 K/uL Eosinophils # (Auto) 0.20 0-0.5 K/uL Basophils # (Auto) 0.02 0-0.2 K/uL RDW Standard Deviation 53.1 53.5 36.4-46.3 fL RDW Coefficient of Variation 17.6 17.5 11.5-14.5 % Immature Granulocyte % (Auto) 0.3 % Immature Granulocyte # (Auto) 0.02 0.00-0.02 K/uL Giant Platelets 2+ Hypochromasia PRESENT Poikilocytosis PRESENT Anisocytosis PRESENT Ovalocytes 1+ Sodium Level 138 140 136-145 mmol/L Potassium Level 4.0 4.2 3.5-5.1 mmol/L Chloride Level 104 105 98-107 mmol/L Carbon Dioxide Level 32 30 21-32 mmol/L Anion Gap 2.0 5.0 3-11 mmol/L Blood Urea Nitrogen 31 29 7-18 mg/dl Creatinine 1.48 1.55 0.60-1.40 mg/dl Est Creatinine Clear Calc Drug Dose 46.0 44.0 ml/min Estimated GFR () 52.1 49.3 Estimated GFR (Non- 45.0 42.5 BUN/Creatinine Ratio 20.8 19.0 10-20 Random Glucose 97 94 70-99 mg/dl Calcium Level 8.2 8.1 8.5-10.1 mg/dl Prothrombin Time 22.7 21.4 9.0-12.0 SECONDS Prothromb Time International Ratio 2.2 2.1 0.9-1.1 Microbiology Results 10/13/17 Blood Culture, Received Pending 10/13/17 Blood Culture, Received Pending 10/13/17 Gram Stain, Received Pending 10/13/17 Wound Culture, Received Pending Assessment & Plan 10/14/17- pt is for incision / debridement in OR tomorrow cont diet, npo after midnight, anesthesia consulted lovenox/ or Heparin per medical team- no high dose lovenox tonight
[2017-10-14] MEDS: VANCOMYCIN IV 1,250 MG in SODIUM CHLORIDE 0.9% 250ML 250 ML IV SCH (08:28)
[2017-10-14] MEDS ORDERED: PHYTONADIONE 5 MG TAB PO STA (08:52)
[2017-10-14] MEDS: BUMETANIDE 1 MG TAB PO SCH (10:39)
[2017-10-14] MEDS: MULTIVITAMIN TAB PO SCH (10:47)
[2017-10-14] MEDS: POTASSIUM CHLORIDE 10 MEQ TABCR PO SCH ×2 (10:47→20:24)
[2017-10-14] MEDS: FERROUS SULFATE 325 MG TAB PO SCH (10:49)
[2017-10-14] MEDS: FAMOTIDINE 20 MG TAB PO SCH (10:49)
[2017-10-14] MEDS: ASCORBIC ACID 500 MG TAB PO SCH (10:50)
[2017-10-14] MEDS: AMIODARONE 200 MG TAB PO SCH (10:50)
[2017-10-14] MEDS: BOOST PLUS VANILLA PO SCH ×2 (10:55→20:23)
[2017-10-14] MEDS: METOPROLOL SUCC 50MG EXT REL TAB PO SCH (10:56)
[2017-10-14] MEDS: FINASTERIDE 5 MG TAB PO SCH (12:41)
--- NOTE | 2017-10-14 14:10 | Progress Note ---
Progress Note Date of Service Oct 14, 2017. Progress Note Patient is a 77 year old M with multiple medical comorbid conditions scheduled for debreidment of a sacral decubitus ulcer on 10/15. He has severe ischemic cardiomyopathy with multiple AVR in the past. He was admitted with a pneumonia and resultant CHF exacerbation back in June, at which time his EF was 20-25%. He was eventually discharged to SNF. He also has a pacer and an ICD placed for primary prevention. 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 He also has chronic urinary retention, which has exacerbated his CHF in the past. The patient has a history of vocal cord paralysis as well. He has no history of adverse reactions to anesthesia. Labs and studies were reviewed. His hemoglobin is 9, he also currently has an INR of 2.1 this morning. GIven his anticoagulation status and baseline anemia, we will have to see where he falls in the morning before making a decision to proceed to surgery. Given his multiple cardiopulmonary comorbidities, he is at least a moderate cardiovascular risk for surgery, but I do not feel that there is further optimization needed here. I will order a type and screen given his baseline hemoglobin, but as we will have to be careful about his fluid management, I do not feel he requires transfusion now. We will plan to proceed to the OR with invasive BP monitoring tomorrow, pending his labs and no significant change in status overnight.
--- NOTE | 2017-10-14 14:14 | Hospitalist Progress Note ---
Hospitalist Progress Note Date of Service Oct 14, 2017. (Judie Rivera ., [place]) Subjective Pt evaluation today including: conversation w/ patient, conversation w/ family , physical exam, chart review, lab review, review of inpatient medication list Voiding: no voiding problems Mr. Garcia is sleeping at the time of my interview, but is arouseable. He appears comfortable, no complaints. is at bedside. ROS Constitutional: no chills, aches, sweats or fever Respiratory: no sob,cough, sputum, or wheezing Cardiac: no chest pain, palpitations, edema, orthopnea or lightheadedness GI: no abdominal pain, nausea, vomiting, diarrhea or constipation : no dysuria or hesitancy Extremities: no joint pain or weakness Skin: no rash All other systems reviewed and negative (Judie Rivera CRNP) Medications Medications Administered Medications (Trade) Dose Ordered Sig/Deion Route Start Time Stop Time Status Last Admin Dose Admin Vancomycin HCl 1250 mg/Sodium Chloride 275 ml @ 125 mls/hr Q18H IV 10/14/17 08:00 10/23/17 23:59 10/14/17 08:28 125 MLS/HR Piperacillin Sod/ Tazobactam Sod 3.375 gm/Sodium Chloride 115 ml @ 28.75 mls/ hr Q8H IV 10/13/17 20:00 10/23/17 19:59 10/14/17 12:20 28.75 MLS/HR Amiodarone HCl (Cordarone Tab) 200 mg QAM PO 10/14/17 09:00 11/13/17 08:59 10/14/17 10:50 200 MG Ascorbic Acid (Vitamin C Tab) 500 mg QAM PO 10/14/17 09:00 11/13/17 08:59 10/14/17 10:50 500 MG Docusate Sodium (coLACE CAP) 100 mg PM PO 10/13/17 21:00 11/12/17 20:59 10/13/17 20:46 100 MG Famotidine (Pepcid Tab) 20 mg QAM PO 10/14/17 09:00 11/13/17 08:59 10/14/17 10:49 20 MG Levothyroxine Sodium (Synthroid Tab) 25 mcg DAILYBB PO 10/14/17 06:00 11/13/17 05:59 10/14/17 05:24 25 MCG Multivitamins (Multivitamin Tab) 1 tab QAM PO 10/14/17 09:00 11/13/17 08:59 10/14/17 10:47 1 TAB Pravastatin Sodium (Pravachol Tab) 40 mg HS PO 10/13/17 21:00 11/12/17 20:59 10/13/17 20:47 40 MG Tamsulosin HCl (Flomax Cap) 0.4 mg HS PO 10/13/17 21:00 11/12/17 20:59 10/13/17 20:46 0.4 MG Potassium Chloride (Klor-Con M10) 10 meq BID PO 10/13/17 21:00 11/12/17 20:59 10/14/17 10:47 10 MEQ Vancomycin HCl 2250 mg/Sodium Chloride 545 ml @ 200 mls/hr 1430 ONCE IV 10/13/17 14:30 10/13/17 17:13 DC 10/13/17 15:33 200 MLS/HR Piperacillin Sod/ Tazobactam Sod 3.375 gm/Sodium Chloride 115 ml @ 230 mls/hr NOW ONCE IV 10/13/17 14:15 10/13/17 14:44 DC 10/13/17 15:32 230 MLS/HR Enteral Nutritional Formula (Boost Plus Vanilla) 1 can BID PO 10/13/17 21:00 11/12/17 20:59 10/14/17 10:55 1 CAN Sodium Chloride 250 ml @ 999 mls/hr Q16M ONCE IV 10/13/17 20:15 10/13/17 20:30 DC 10/13/17 20:45 999 MLS/HR Phytonadione (Mephyton Tab) 5 mg NOW STAT PO 10/14/17 08:52 10/14/17 08:56 DC 10/14/17 10:44 5 MG Bumetanide (Bumex Tab) 2 mg DAILY PO 10/14/17 09:30 11/12/17 09:29 10/14/17 10:39 2 MG Finasteride (Proscar Tab) 5 mg QAM PO 10/14/17 12:15 11/13/17 12:14 10/14/17 12:41 5 MG (Judie Rivera, [place]) Objective Vital Signs Date Time Temp Pulse Resp B/P (MAP) Pulse Ox O2 Delivery O2 Flow Rate FiO2 10/14/17 14:04 95 Room Air 10/14/17 12:00 36.3 87 20 93/55 (68) 98 Nasal Cannula 1.0 10/14/17 10:57 91 93/52 (66) 10/14/17 08:10 Nasal Cannula 1.0 95 10/14/17 07:50 95 Nasal Cannula 3.0 10/14/17 07:45 91 98/54 (69) 76 Nasal Cannula 2.0 10/14/17 07:35 94 100/62 (75) 83 Nasal Cannula 1.0 10/14/17 07:30 35.4 90 20 98/60 (73) 92 Room Air 10/14/17 03:57 92 Nasal Cannula 1.0 10/14/17 03:57 36.6 89 22 100/55 (70) 85 Room Air 10/13/17 23:55 36.6 91 24 95/58 (70) 91 Room Air 10/13/17 23:15 Room Air 10/13/17 22:15 102/54 (70) 10/13/17 19:59 85/49 (61) 10/13/17 19:13 36.8 98 16 86/55 (65) 90 Room Air 10/13/17 16:05 36.9 91 18 94/58 (70) 92 Room Air 10/13/17 15:30 Room Air (Judie Rivera ., [place]) Laboratory Results Last 24 Hours Test 10/14/17 06:33 10/14/17 14:00 White Blood Count 7.41 K/uL Red Blood Count 3.81 M/uL Hemoglobin 9.1 g/dL Hematocrit 31.6 % Mean Corpuscular Volume 82.9 fL Mean Corpuscular Hemoglobin 23.9 pg Mean Corpuscular Hemoglobin Concent 28.8 g/dl RDW Standard Deviation 53.5 fL RDW Coefficient of Variation 17.5 % Platelet Count 156 K/uL Prothrombin Time 21.4 SECONDS Prothromb Time International Ratio 2.1 Sodium Level 140 mmol/L Potassium Level 4.2 mmol/L Chloride Level 105 mmol/L Carbon Dioxide Level 30 mmol/L Anion Gap 5.0 mmol/L Blood Urea Nitrogen 29 mg/dl Creatinine 1.55 mg/dl Est Creatinine Clear Calc Drug Dose 44.0 ml/min Estimated GFR () 49.3 Estimated GFR (Non- 42.5 BUN/Creatinine Ratio 19.0 Random Glucose 94 mg/dl Calcium Level 8.1 mg/dl (Judie Rivera CRNP) Assessment and Plan Mr. Garcia is a 77 year old man here for surgical intervention of a sacral decubitus Ulcer Sacral Decubitus Ulcer - Consulted general surgery - plan is for OR tomorrow - INR 2.1 pending - given Vitamin K, repeat INR pending - Continue Vanc, zosyn - ID consulted - npo after mn - CXR shows no acute process - EKG with LBBB which is chronic - BC, wound culture pending CAD S/P CABG; AAA/Aortic Dissection; S/P ICD/Pacer; Chronic Systolic CHF; Atrial Fibrillation: - continue Bumex bid, amiodarone, metoprolol - Coumadin held for possible procedure Friday - patient held since Friday, see above for reversal - INR pending CKD III - patient's creatinine bumped again to 1.55, baseline around 1-1.3 - will trend prp, hold NDAEEM, will cut Bumex to daily from bid until Creat improves - avoid nephrotoxins where possible Hypothyroid - continue levothyroxine BPH - continue tamsulosin Plan is for surgery on Friday. Patient's kidney function is slightly suboptimal, EKG is baseline, CXR shows no acute process. RCRI 6.6% of major cardiac event during surgery. Patient will need PT/OT following surgery (Judie Rivera CRNP) [employer] Physician Supervision Note: I interviewed and examined the patient. Discussed with Judie Rivera [employer] BABYSIT[employer] and agree with findings and plan as documented in the note. Any exceptions or clarifications are listed here: None Patient is slightly sleepy but doing well. We are having difficulty reducing his INR given his chronic Coumadin use. He did receive an oral dose of vitamin K on 10/13 is receiving additional IV dose of vitamin K and 10/14 in hopes his INR is 1.4 less for surgery scheduled for 10/15 to continue his antibiotics were having some difficulty with urine output is he does have BPH we will reinstitute his Proscar and Flomax with intermittent straight caths as needed He is fatigued his awakes easily his cardiac exam is regular his lungs are clear does not appear to be in heart failure Patient be maintained on antibiotics continue with progression for surgical debridement of his decubitus ulcer present on admission Documented By: Vijay Stack (Vijay Stack M.D.)
--- NOTE | 2017-10-14 14:40 | Infectious Disease Progress Nt ---
Progress Note Date of Service Oct 14, 2017. Subjective Pt evaluation today including: conversation w/ patient, conversation w/ family , physical exam, chart review, lab review, review of studies, conversation w/ information consultant, review of inpatient medication list Offers no new complaints today. Pain repeat severe. No fever. Cultures with gram-negative bacilli All Other Systems: Reviewed and Negative Medications Current Inpatient Medications Medications (Trade) Dose Ordered Sig/Deion Route Start Time Stop Time Status Last Admin Dose Admin Acetaminophen (Tylenol Tab) 650 mg Q4H PRN PO 10/13/17 12:30 11/12/17 12:29 Vancomycin HCl 1250 mg/Sodium Chloride 275 ml @ 125 mls/hr Q18H IV 10/14/17 08:00 10/23/17 23:59 10/14/17 08:28 125 MLS/HR Miscellaneous Information (Consult) 1 ea UD PRN N/A 10/13/17 13:45 11/12/17 13:44 Piperacillin Sod/ Tazobactam Sod 3.375 gm/Sodium Chloride 115 ml @ 28.75 mls/ hr Q8H IV 10/13/17 20:00 10/23/17 19:59 10/14/17 12:20 28.75 MLS/HR Miscellaneous Information (Consult) 1 ea UD PRN N/A 10/13/17 13:45 11/12/17 13:44 Amiodarone HCl (Cordarone Tab) 200 mg QAM PO 10/14/17 09:00 11/13/17 08:59 10/14/17 10:50 200 MG Ascorbic Acid (Vitamin C Tab) 500 mg QAM PO 10/14/17 09:00 11/13/17 08:59 10/14/17 10:50 500 MG Docusate Sodium (coLACE CAP) 100 mg PM PO 10/13/17 21:00 11/12/17 20:59 10/13/17 20:46 100 MG Famotidine (Pepcid Tab) 20 mg QAM PO 10/14/17 09:00 11/13/17 08:59 10/14/17 10:49 20 MG Ferrous Sulfate (Feosol Tab) 325 mg QAM PO 10/14/17 09:00 11/13/17 08:59 Levothyroxine Sodium (Synthroid Tab) 25 mcg DAILYBB PO 10/14/17 06:00 11/13/17 05:59 10/14/17 05:24 25 MCG Metoprolol Succinate (Toprol Xl Tab) 50 mg QAM PO 10/14/17 09:00 11/13/17 08:59 Multivitamins (Multivitamin Tab) 1 tab QAM PO 10/14/17 09:00 11/13/17 08:59 10/14/17 10:47 1 TAB Nitroglycerin (Nitrostat Tab) 0.4 mg Q5M PRN [place] 10/13/17 13:45 11/12/17 13:44 Pravastatin Sodium (Pravachol Tab) 40 mg HS PO 10/13/17 21:00 11/12/17 20:59 10/13/17 20:47 40 MG Tamsulosin HCl (Flomax Cap) 0.4 mg HS PO 10/13/17 21:00 11/12/17 20:59 10/13/17 20:46 0.4 MG Potassium Chloride (Klor-Con M10) 10 meq BID PO 10/13/17 21:00 11/12/17 20:59 10/14/17 10:47 10 MEQ Enteral Nutritional Formula (Boost Plus Vanilla) 1 can BID PO 10/13/17 21:00 11/12/17 20:59 10/14/17 10:55 1 CAN Bumetanide (Bumex Tab) 2 mg DAILY PO 10/14/17 09:30 11/12/17 09:29 10/14/17 10:39 2 MG Finasteride (Proscar Tab) 5 mg QAM PO 10/14/17 12:15 11/13/17 12:14 10/14/17 12:41 5 MG Objective Vital Signs Date Time Temp Pulse Resp B/P (MAP) Pulse Ox O2 Delivery O2 Flow Rate FiO2 10/14/17 14:04 95 Room Air 10/14/17 12:00 36.3 87 20 93/55 (68) 98 Nasal Cannula 1.0 10/14/17 10:57 91 93/52 (66) 10/14/17 08:10 Nasal Cannula 1.0 95 10/14/17 07:50 95 Nasal Cannula 3.0 10/14/17 07:45 91 98/54 (69) 76 Nasal Cannula 2.0 10/14/17 07:35 94 100/62 (75) 83 Nasal Cannula 1.0 10/14/17 07:30 35.4 90 20 98/60 (73) 92 Room Air 10/14/17 03:57 92 Nasal Cannula 1.0 10/14/17 03:57 36.6 89 22 100/55 (70) 85 Room Air 10/13/17 23:55 36.6 91 24 95/58 (70) 91 Room Air 10/13/17 23:15 Room Air 10/13/17 22:15 102/54 (70) 10/13/17 19:59 85/49 (61) 10/13/17 19:13 36.8 98 16 86/55 (65) 90 Room Air 10/13/17 16:05 36.9 91 18 94/58 (70) 92 Room Air 10/13/17 15:30 Room Air Physical Exam General Appearance: WD/WN, no apparent distress, + pertinent finding ( Chronically ill-appearing) Eyes: normal inspection, EOMI, sclerae normal ENT: normal ENT inspection, pharynx normal Neck: supple, no adenopathy, thyroid normal, trachea midline Respiratory/Chest: chest non-tender, lungs clear, normal breath sounds, no respiratory distress Cardiovascular: regular rate, rhythm, no gallop, no murmur Abdomen: normal bowel sounds, non tender, soft, no organomegaly Extremities: non-tender, no calf tenderness, normal capillary refill Neurologic/Psychiatric: alert, oriented x 3 Skin: normal color, no rash, + pertinent finding (No change gluteal decubitus) Lymphatic: no adenopathy Laboratory Results Date/Time Source Procedure Growth Status 10/13/17 14:54 Blood Blood Culture Pending Received 10/13/17 14:42 Blood Blood Culture Pending Received 10/13/17 15:50 Drainage - Surface Sacrum Gram Stain - Final Resulted 10/13/17 15:50 Wound Culture - Preliminary Gram Negative Bacilli Resulted Last 24 Hours Test 10/14/17 06:33 10/14/17 14:24 White Blood Count 7.41 K/uL Red Blood Count 3.81 M/uL Hemoglobin 9.1 g/dL Hematocrit 31.6 % Mean Corpuscular Volume 82.9 fL Mean Corpuscular Hemoglobin 23.9 pg Mean Corpuscular Hemoglobin Concent 28.8 g/dl RDW Standard Deviation 53.5 fL RDW Coefficient of Variation 17.5 % Platelet Count 156 K/uL Prothrombin Time 21.4 SECONDS Prothromb Time International Ratio 2.1 Sodium Level 140 mmol/L Potassium Level 4.2 mmol/L Chloride Level 105 mmol/L Carbon Dioxide Level 30 mmol/L Anion Gap 5.0 mmol/L Blood Urea Nitrogen 29 mg/dl Creatinine 1.55 mg/dl Est Creatinine Clear Calc Drug Dose 44.0 ml/min Estimated GFR () 49.3 Estimated GFR (Non- 42.5 BUN/Creatinine Ratio 19.0 Random Glucose 94 mg/dl Calcium Level 8.1 mg/dl Assessment and Plan Worsening left gluteal infection with probable abscess formation awaiting surgical debridement and drainage. Previous cultures positive for sensitive Proteus and MSSA, current culture growing gram-negative bacilli. Continue present antibiotics pending operative cultures.
[2017-10-14 14:41] LABS: INR 1.9 (0.9-1.1)
[2017-10-14] MEDS ORDERED: PHYTONADIONE INJ 5 MG in SODIUM CHLORIDE 0.9% 50ML 50 ML IV ONE (15:30)
[2017-10-14] MEDS: PRAVASTATIN SOD 40 MG TAB PO SCH (20:24)
[2017-10-14] MEDS: DOCUSATE SODIUM 100 MG CAP PO SCH (20:24)
[2017-10-14] MEDS: TAMSULOSIN HCL 0.4 MG CAP PO SCH (20:24)
[2017-10-14 22:42] LABS: INR 1.8 (0.9-1.1)
[2017-10-15] VITALS (14 sets, daily range): BP systolic 90–104; BP diastolic 48–68; PULSE 62–90; TEMP 36.3–36.9; O2SAT 91–97
[2017-10-15] MEDS: VANCOMYCIN IV 1,250 MG in SODIUM CHLORIDE 0.9% 250ML 250 ML IV SCH (01:44)
[2017-10-15] MEDS: PIPERACILL/TAZOBAC IV 3.375 GM in SODIUM CHLORIDE 0.9% 100ML 100 ML IV SCH ×3 (04:20→21:03)
--- NOTE | 2017-10-15 06:31 | Surgery Progress Note ---
Surgery Progress Note Date of Service Oct 15, 2017. Subjective no acute changes coags pending rec vit K Objective Vital Signs: Date Time Temp Pulse Resp B/P (MAP) Pulse Ox O2 Delivery O2 Flow Rate FiO2 10/15/17 02:24 36.6 62 20 101/68 (79) 92 Nasal Cannula 2.0 10/15/17 01:38 92 Room Air 10/15/17 00:00 Room Air 10/14/17 23:15 37.1 92 20 89/54 (66) 88 Room Air 10/14/17 20:03 36.6 93 16 93/61 (72) 92 Room Air 10/14/17 19:25 Room Air 10/14/17 15:43 36.5 89 20 93/55 (68) 92 Room Air 10/14/17 15:15 Room Air 10/14/17 14:04 95 Room Air 10/14/17 12:00 36.3 87 20 93/55 (68) 98 Nasal Cannula 1.0 10/14/17 10:57 91 93/52 (66) 10/14/17 08:10 Nasal Cannula 1.0 95 10/14/17 07:50 95 Nasal Cannula 3.0 10/14/17 07:45 91 98/54 (69) 76 Nasal Cannula 2.0 10/14/17 07:35 94 100/62 (75) 83 Nasal Cannula 1.0 10/14/17 07:30 35.4 90 20 98/60 (73) 92 Room Air General Appearance: no apparent distress Laboratory Results: Results Past 24 Hours Test 10/14/17 06:33 10/14/17 14:24 10/14/17 22:27 10/15/17 06:00 Range/Units White Blood Count 7.41 4.8-10.8 K/uL Red Blood Count 3.81 4.7-6.1 M/uL Hemoglobin 9.1 14.0-18.0 g/dL Hematocrit 31.6 42-52 % Mean Corpuscular Volume 82.9 80-100 fL Mean Corpuscular Hemoglobin 23.9 25-34 pg Mean Corpuscular Hemoglobin Concent 28.8 32-36 g/dl RDW Standard Deviation 53.5 36.4-46.3 fL RDW Coefficient of Variation 17.5 11.5-14.5 % Platelet Count 156 130-400 K/uL Prothrombin Time 21.4 19.6 18.4 9.0-12.0 SECONDS Prothromb Time International Ratio 2.1 1.9 1.8 0.9-1.1 Sodium Level 140 136-145 mmol/L Potassium Level 4.2 3.5-5.1 mmol/L Chloride Level 105 98-107 mmol/L Carbon Dioxide Level 30 21-32 mmol/L Anion Gap 5.0 3-11 mmol/L Blood Urea Nitrogen 29 7-18 mg/dl Creatinine 1.55 0.60-1.40 mg/dl Est Creatinine Clear Calc Drug Dose 44.0 ml/min Estimated GFR () 49.3 Estimated GFR (Non- 42.5 BUN/Creatinine Ratio 19.0 10-20 Random Glucose 94 70-99 mg/dl Calcium Level 8.1 8.5-10.1 mg/dl Assessment & Plan 10/15/17- pending coags- for Incision/ debridement gluteal ulcer/ abscess. No acute changes 10/14/17- pt is for incision / debridement in OR tomorrow cont diet, npo after midnight, anesthesia consulted lovenox/ or Heparin per medical team- no high dose lovenox tonight 10/14/17- pt is for incision / debridement in OR tomorrow cont diet, npo after midnight, anesthesia consulted lovenox/ or Heparin per medical team- no high dose lovenox tonight
[2017-10-15 06:43] LABS: HEMATOCRIT 30.9 % (42-52); HEMOGLOBIN 8.7 g/dL (14.0-18.0); MEAN CELL VOLUME 82.8 fL (80-100); MEAN CORPUSCULAR HEMOGLOBIN 23.3 pg (25-34); MEAN CORPUSCULAR HGB CONC 28.2 g/dl (32-36); PLATELET COUNT 169 K/uL (130-400); RED CELL DISTRIBUTION WIDTH CV 17.4 % (11.5-14.5); RED CELL DISTRIBUTION WIDTH SD 52.6 fL (36.4-46.3); WHITE BLOOD COUNT 6.98 K/uL (4.8-10.8)
[2017-10-15 06:44] LABS: INR 1.5 (0.9-1.1)
[2017-10-15 07:02] LABS: CREATININE 1.48 mg/dl (0.60-1.40)
[2017-10-15 07:03] LABS: CALCIUM 8.1 mg/dl (8.5-10.1); POTASSIUM 4.2 mmol/L (3.5-5.1)
[2017-10-15] MEDS: METOPROLOL SUCC 50MG EXT REL TAB PO SCH ×2 (07:09→07:13)
[2017-10-15] MEDS: AMIODARONE 200 MG TAB PO SCH (07:14)
[2017-10-15] MEDS ORDERED: FENTANYL CITRATE INJ 50 MCG/1 ML 2 ML VIAL ONE ×2 (07:17→08:24)
[2017-10-15] MEDS ORDERED: MIDAZOLAM HCL 1 MG/ML 2ML VIAL ONE (07:18)
[2017-10-15] MEDS ORDERED: BUPIVACAINE 0.5 % 5 MG/1 ML MPF 30ML VIAL ONE (07:57)
[2017-10-15] MEDS ORDERED: PROPOFOL IV EMULSION 10 MG/ML 20 ML VIAL IV ONE (09:12)
[2017-10-15] MEDS ORDERED: PHENYLEPHRINE HCL INJ 10 MG/ML VIAL ONE (09:13)
[2017-10-15] MEDS ORDERED: ROCURONIUM BROMIDE 10 MG/ML 5 ML VIAL IV ONE (09:13)
[2017-10-15] MEDS ORDERED: LIDOCAINE HCL 2% 2 ML VIAL (20MG/ML) ONE ×2 (09:13)
[2017-10-15] MEDS ORDERED: VASOPRESSIN 20 UNIT/ML VIAL ONE (09:13)
[2017-10-15] MEDS ORDERED: NOREPINEPHRINE BITARTRATE 1 MG/ML 4 ML VIAL IV ONE (09:14)
[2017-10-15] MEDS ORDERED: ATROPINE SULFATE 0.1 MG/ML 5ML SYR IV PRN (09:30)
[2017-10-15] MEDS ORDERED: ONDANSETRON INJ 2 MG/ML 2 ML VIAL IV PRN (09:30)
[2017-10-15] MEDS ORDERED: PROMETHAZINE HCL INJ 6.25 MG in SODIUM CHLORIDE 0.9% 50ML 50 ML IV PRN (09:30)
[2017-10-15] MEDS ORDERED: FENTANYL CITRATE INJ 50 MCG/1 ML 2 ML VIAL IV PRN (09:30)
[2017-10-15] MEDS ORDERED: EpHEDrine SULFATE INJ 50 MG/ML AMP IV PRN (09:30)
[2017-10-15] MEDS ORDERED: GLYCOPYRROLATE INJ 0.2 MG/ML VIAL ONE (09:44)
[2017-10-15] MEDS ORDERED: NEOSTIGMINE METHYLSULFATE 5 MG/5 ML SYR ONE (09:44)
[2017-10-15] MEDS ORDERED: FLOSEAL HEMOSTATIC MATRIX 10ML TOP ONE (09:47)
--- NOTE | 2017-10-15 09:48 | [facility] Operative Report ---
Operative Report Operative Date Oct 15, 2017. Pre-Operative Diagnosis Left Gluteal abscess/ Decubitus ulcer Post-Operative Diagnosis Same as preoperative. Procedure(s) Performed Debridement of Left Decubitus Ulcer/Gluteal Abscess Surgeon Dr Orozco Supervisor Anodizing Surgeon(s) Ophelia Russell PA-C Estimated Blood Loss 30ml Findings large area- 13x10 cm of undermining necrosis including subcutaneous tissue fascia and muscle with bone exposed at base Specimens Culture #1 gluteal abscess for aerobic, anaerobic, gram stain A. Left gluteal tissue Anesthesia Type General Complication(s) none Disposition Recovery Room / PACU I attest to the content of the Intraoperative Record and any orders documented therein. Any exceptions are noted below.
[2017-10-15] MEDS: POTASSIUM CHLORIDE 10 MEQ TABCR PO SCH ×2 (10:06→20:56)
[2017-10-15] MEDS: FERROUS SULFATE 325 MG TAB PO SCH (10:06)
[2017-10-15] MEDS: BOOST PLUS VANILLA PO SCH ×2 (10:06→20:56)
[2017-10-15] MEDS: LEVOTHYROXINE 25 MCG TAB PO SCH (10:06)
[2017-10-15] MEDS: FINASTERIDE 5 MG TAB PO SCH (10:07)
[2017-10-15] MEDS: FAMOTIDINE 20 MG TAB PO SCH (10:07)
[2017-10-15] MEDS: BUMETANIDE 1 MG TAB PO SCH (10:07)
[2017-10-15] MEDS: MULTIVITAMIN TAB PO SCH (10:07)
[2017-10-15] MEDS: ASCORBIC ACID 500 MG TAB PO SCH (10:07)
[2017-10-15] MEDS ORDERED: HYDROCODONE/ACETAMIN 5/325MG TAB PO PRN ×2 (10:15)
[2017-10-15] MEDS ORDERED: MoRPHine SULFATE 4 MG/ML 1 ML CARP\\VIAL IV PRN (10:15)
[2017-10-15] MEDS ORDERED: MoRPHine SULFATE 2 MG/ML CARP IV PRN (10:15)
--- NOTE | 2017-10-15 10:26 | OPERATIVE REPORT ---
DATE OF OPERATION: 10/15/2017 NAME OF OPERATION: Incision and debridement of skin, subcutaneous tissue, fascia, and muscle from a sacral decubitus ulcer on the left side over 13 x 10 cm. PREOPERATIVE DIAGNOSIS: Sacral decubitus ulcer with a gluteal abscess. POSTOPERATIVE DIAGNOSIS: Sacral decubitus ulcer with a gluteal abscess. STAFF SURGEON: Dr. Eddy Orozco CUSTOMER QUALITY ENGINEER: Ophelia Russell PA-C ANESTHESIA: General. PROCEDURE IN DETAIL: The patient was brought in the operating room. He was on his bed. He underwent general anesthesia and then Sandoval catheter placement and then placed on the operating room table in the prone position. His sacral area and left gluteal area were prepped and draped in usual fashion. The patient had a small opening of approximately 1-1.5 cm in the skin which on exploration showed a very deep cavity undermining the skin. The area was marked and then the skin was anesthetized using 0.5% plain Marcaine, then the tissue was incised around this area, and ended up being approximately 13 x 10 cm with underlying necrotic tissue involving the subcutaneous tissue, fascia, and muscle. I continued to debride the tissue back to what I felt was viable tissue and the base of the ulceration went down to the bony sacrum which appeared to be intact, it was not soft. At this point, FloSeal was applied. I did ligate several vessels using 2-0 and 0 chromic suture and also with the electrocautery. The bleeding was controlled. A saline wet gauze dressing applied and then the patient transferred to recovery room in stable condition. As a note, I felt it was better for the patient to be placed into the telemetry unit for close watching and most likely we are going to give him a unit of blood. Also, as a note, my assistant media buyer helped with prepping, draping, tissue debridement, and wound dressing. I attest to the content of the Intraoperative Record and any orders documented therein. Any exception s are noted below.
--- NOTE | 2017-10-15 11:24 | DIAGNOSTIC IMAGING REPORT ---
CHEST ONE VIEW PORTABLE CLINICAL HISTORY: acute resp failure. Dyspnea COMPARISON STUDY: 10/13/2017 FINDINGS: Interval placement of an endotracheal tube 2 cm both holly. Moderate increase in cardiac size. Interval development of a left basilar infiltrate and/or effusion. Increased prominence of pulmonary vasculature. IMPRESSION: 1. Interval development of a consolidative infiltrate left base. Mild congestive failure. Endotracheal tube 2 cm above the holly. The above report was generated using voice recognition software. It may contain grammatical, syntax or spelling errors. Electronically signed by: Jayant Vazquez M.D. 10/15/2017 11:22 AM Dictated Date/Time: 10/15/2017 11:21 AM
--- NOTE | 2017-10-15 11:32 | Anesthesiology Progress Note ---
Anesthesia Post Op Note Date & Time Oct 15, 2017 at 11:27 Vital Signs Pain Intensity: 0.0 Vital Signs Past 12 Hours Date Time Temp Pulse Resp B/P (MAP) Pulse Ox O2 Delivery O2 Flow Rate FiO2 10/15/17 11:03 50 10/15/17 10:39 50 10/15/17 10:23 36.9 90 18 91 2.0 10/15/17 07:08 36.9 90 18 96/61 (73) 91 Nasal Cannula 2.0 10/15/17 02:24 36.6 62 20 101/68 (79) 92 Nasal Cannula 2.0 10/15/17 01:38 92 Room Air 10/15/17 00:00 Room Air Notes Mental Status: alert / awake / arousable, participated in evaluation Pt Amnestic to Procedure: Yes Nausea / Vomiting: adequately controlled Pain: adequately controlled Airway Patency, RR, SpO2: stable & adequate, see Notes BP & HR: stable & adequate Hydration State: stable & adequate Anesthetic Complications: no major complications apparent Patient did well intraoperatively. He did require a low dose drip of phenylphrine to keep MAP>60. His fluid was limited to 500cc of crystalloid intraoperatively, and there was plan to transfuse 1u RBC, which was being prepared by the blood bank at the time of completion. Patient was turned supine and emerged. He was slow to wake and his respiratory effort was insufficient to wean. He did drift up with his end tidal CO2, and an abg showed him to have a respiratory acidosis. Thus, the decision was made to take the patient to ICU intubated to optimize his fluid status and allow him further time to wean. I spoke with the vision care associate and ICU PA-C who will manage the patient medically in the ICU. I did speak with the family who was well aware that this was a possibility. On arrival in pacu he was awake and following commands, but still not yet sufficient respiratory status to wean. Appreciate ICU team involvement for further management.
--- NOTE | 2017-10-15 12:02 | Hospitalist Progress Note ---
Hospitalist Progress Note Date of Service Oct 15, 2017. (Judie Rivera ., [place]) Subjective Pt evaluation today including: conversation w/ family, physical exam, chart review, lab review, review of studies, conversation w/ franchise field consultant, review of inpatient medication list Voiding: suggs catheter in place Mr. Garcia is in the ICU following surgery this morning. he is very drowsy but arouseable, intubated following his surgery but oxygenating well on CPAP setting. Blood pressures through Art line are low - 80s/50s but maintaining MAPs around 65. Per anesthesias note, there were plans to transfuse 1 unit although does not appear that he has received this blood yet. Family at bedside and I did update them and answer questions. Unable to perform review of systems. (Judie Rivera ., [place]) Medications Medications Administered Medications (Trade) Dose Ordered Sig/Deion Route Start Time Stop Time Status Last Admin Dose Admin Vancomycin HCl 1250 mg/Sodium Chloride 275 ml @ 125 mls/hr Q18H IV 10/14/17 08:00 10/23/17 23:59 10/15/17 01:44 125 MLS/HR Piperacillin Sod/ Tazobactam Sod 3.375 gm/Sodium Chloride 115 ml @ 28.75 mls/ hr Q8H IV 10/13/17 20:00 10/23/17 19:59 10/15/17 04:20 28.75 MLS/HR Amiodarone HCl (Cordarone Tab) 200 mg QAM PO 10/14/17 09:00 11/13/17 08:59 10/15/17 07:14 200 MG Ascorbic Acid (Vitamin C Tab) 500 mg QAM PO 10/14/17 09:00 11/13/17 08:59 10/14/17 10:50 500 MG Docusate Sodium (coLACE CAP) 100 mg PM PO 10/13/17 21:00 11/12/17 20:59 10/14/17 20:24 100 MG Famotidine (Pepcid Tab) 20 mg QAM PO 10/14/17 09:00 11/13/17 08:59 10/14/17 10:49 20 MG Levothyroxine Sodium (Synthroid Tab) 25 mcg DAILYBB PO 10/14/17 06:00 11/13/17 05:59 10/14/17 05:24 25 MCG Metoprolol Succinate (Toprol Xl Tab) 50 mg QAM PO 10/14/17 09:00 11/13/17 08:59 10/15/17 07:13 50 MG Multivitamins (Multivitamin Tab) 1 tab QAM PO 10/14/17 09:00 11/13/17 08:59 10/14/17 10:47 1 TAB Pravastatin Sodium (Pravachol Tab) 40 mg HS PO 10/13/17 21:00 11/12/17 20:59 10/14/17 20:24 40 MG Tamsulosin HCl (Flomax Cap) 0.4 mg HS PO 10/13/17 21:00 11/12/17 20:59 10/14/17 20:24 0.4 MG Potassium Chloride (Klor-Con M10) 10 meq BID PO 10/13/17 21:00 11/12/17 20:59 10/14/17 20:24 10 MEQ Vancomycin HCl 2250 mg/Sodium Chloride 545 ml @ 200 mls/hr 1430 ONCE IV 10/13/17 14:30 10/13/17 17:13 DC 10/13/17 15:33 200 MLS/HR Piperacillin Sod/ Tazobactam Sod 3.375 gm/Sodium Chloride 115 ml @ 230 mls/hr NOW ONCE IV 10/13/17 14:15 10/13/17 14:44 DC 10/13/17 15:32 230 MLS/HR Enteral Nutritional Formula (Boost Plus Vanilla) 1 can BID PO 10/13/17 21:00 11/12/17 20:59 10/14/17 20:23 1 CAN Sodium Chloride 250 ml @ 999 mls/hr Q16M ONCE IV 10/13/17 20:15 10/13/17 20:30 DC 10/13/17 20:45 999 MLS/HR Phytonadione (Mephyton Tab) 5 mg NOW STAT PO 10/14/17 08:52 10/14/17 08:56 DC 10/14/17 10:44 5 MG Bumetanide (Bumex Tab) 2 mg DAILY PO 10/14/17 09:30 11/12/17 09:29 10/14/17 10:39 2 MG Finasteride (Proscar Tab) 5 mg QAM PO 10/14/17 12:15 11/13/17 12:14 10/14/17 12:41 5 MG Phytonadione 5 mg/ Sodium Chloride 50.5 ml @ 101 mls/hr NOW ONCE IV 10/14/17 15:30 10/14/17 15:59 DC 10/14/17 16:03 101 MLS/HR Bupivacaine HCl (Marcaine 0.5% MPF Inj) 30 ml STK-MED ONCE .ROUTE 10/15/17 07:57 10/15/17 07:58 DC 10/15/17 09:30 7 ML Miscellaneous (Floseal Hemostatic Matrix 10ml) 10 ml ONE ONCE TOP 10/15/17 09:47 10/15/17 09:48 DC 10/15/17 09:47 10 ML (Judie Rivera CRNP) Objective Vital Signs Date Time Temp Pulse Resp B/P (MAP) Pulse Ox O2 Delivery O2 Flow Rate FiO2 10/15/17 11:03 50 10/15/17 10:39 50 10/15/17 10:23 36.9 90 18 91 2.0 10/15/17 07:08 36.9 90 18 96/61 (73) 91 Nasal Cannula 2.0 10/15/17 02:24 36.6 62 20 101/68 (79) 92 Nasal Cannula 2.0 10/15/17 01:38 92 Room Air 10/15/17 00:00 Room Air 10/14/17 23:15 37.1 92 20 89/54 (66) 88 Room Air 10/14/17 20:03 36.6 93 16 93/61 (72) 92 Room Air 10/14/17 19:25 Room Air 10/14/17 15:43 36.5 89 20 93/55 (68) 92 Room Air 10/14/17 15:15 Room Air 10/14/17 14:04 95 Room Air 10/14/17 12:00 36.3 87 20 93/55 (68) 98 Nasal Cannula 1.0 (Judie Rivera CRNP) Physical Exam Notes: General: no distress Eyes: normal inspection, PERLL Respiratory: chest non tender, clear to auscultation, normal breath sounds, no respiratory distress, no accessory muscle use Cardiac: regular rate and rhythm, no rub or gallop, 4/6 systolic murmur, no edema, no jvd GI/: hypoactive bowel sounds, no abd pain or tenderness, soft, non distended Extremities: normal range of motion, normal strength, non tender Neuro/Psych: alert and oriented x 3, normal mood and affect Skin: normal color, dry (Judie Rivera CRNP) Laboratory Results Last 24 Hours Test 10/14/17 14:24 10/14/17 22:27 10/15/17 06:00 10/15/17 10:09 Prothrombin Time 19.6 SECONDS 18.4 SECONDS 15.3 SECONDS Prothromb Time International Ratio 1.9 1.8 1.5 White Blood Count 6.98 K/uL Red Blood Count 3.73 M/uL Hemoglobin 8.7 g/dL Hematocrit 30.9 % Mean Corpuscular Volume 82.8 fL Mean Corpuscular Hemoglobin 23.3 pg Mean Corpuscular Hemoglobin Concent 28.2 g/dl RDW Standard Deviation 52.6 fL RDW Coefficient of Variation 17.4 % Platelet Count 169 K/uL Sodium Level 140 mmol/L Potassium Level 4.2 mmol/L Chloride Level 105 mmol/L Carbon Dioxide Level 31 mmol/L Anion Gap 4.0 mmol/L Blood Urea Nitrogen 27 mg/dl Creatinine 1.48 mg/dl Est Creatinine Clear Calc Drug Dose 46.0 ml/min Estimated GFR () 52.1 Estimated GFR (Non- 45.0 BUN/Creatinine Ratio 18.5 Random Glucose 93 mg/dl Calcium Level 8.1 mg/dl Bedside Blood Gas pH (LAB) 7.18 Bedside Blood Gas pCO2 (LAB) 85 mmHg Bedside Blood Gas pO2 (LAB) 144 mmHg Bedside Blood Gas HCO3 (LAB) 32 meq/L Bedside Blood Gas Total CO2 34 mEq/l Bedside Blood Gas Base Excess (LAB) 3.0 meq/L Bedside Blood Gas O2 Saturation 98.0 % Test 10/15/17 10:56 Blood Gas Sample Site Art Line Bedside Blood Gas pH (LAB) 7.29 Bedside Blood Gas pCO2 (LAB) 61 mmHg Bedside Blood Gas pO2 (LAB) 78 mmHg Bedside Blood Gas HCO3 (LAB) 30 meq/L Bedside Blood Gas Total CO2 31 mEq/l Bedside Blood Gas Base Excess (LAB) 3.0 meq/L Bedside Blood Gas O2 Saturation 93.0 % Elio Test NA Oxygen Delivery Device Ventilator Bedside FiO2 50 % Blood Gas PEEP 5 (Judie Rivera CRNP) Assessment and Plan Mr. Garcia is a 77 year old man here for surgical intervention of a sacral decubitus Ulcer Sacral Decubitus Ulcer post op 10/15 - Consulted general surgery - Continue Vanc, zosyn - ID consulted - BC ngtd, surgical abscess drainage pending, surface wound culture growing christianson sensitive proteus, will continue vanc until surgical abscess drainage resulted as it shows few gram positive cocci Post op Hypotension, CAD S/P CABG; AAA/Aortic Dissection; S/P ICD/Pacer; Chronic Systolic CHF; Atrial Fibrillation: - BPs running with MAP around 65 on Art line - continue Bumex bid when hypotension improves, amiodarone, metoprolol - Coumadin held for possible procedure Friday - patient held since Friday, see above for reversal - INR pending Anemia - will order h&h to evaluate for necessity of transfusion due to post op blood loss CKD III - patient's creatinine 1.4, baseline around 1-1.3 - will trend prp, hold NADEEM, will return Bumex to bid when pressures can tolerate now that from bid until Creat improved - avoid nephrotoxins where possible Hypothyroid - continue levothyroxine BPH - continue tamsulosin PT/OT when extubated (Judie Rivera CRNP) FILM TECHNICIAN Physician Supervision Note: I interviewed and examined the patient. Discussed with Judie Rivera NP and agree with findings and plan as documented in the note. Any exceptions or clarifications are listed here: None Patient is being housed in the ICU post procedurally due to prolonged time to extubation in the PACU. The patient was seen at the bedside with his and sister he was able to answer questions by shaking his head is currently on CPAP with ICU attending to attempting to taper him and eventually extubate him later in the afternoon his surgical procedure did have fairly extensive wound debridement and following of hemoglobin due to blood loss Vital signs were 36 9 pulse is 90 respiration 18 BP 96/61 he was maintaining good oxygen saturations on CPAP with ICU oversight His cardiac exam was regular his lungs had good breath sounds in both lung uribe Continue ventilatory support as long as needed with weaning per ICU protocol mentating antibiotic treatment for his decubitus ulcer with infectious disease oversight continuing amiodarone metoprolol and Bumex treating his chronic systolic heart failure which remains stable at this time despite fluid shifts Documented By: Vijay Stack (Vijay Stack M.D.)
[2017-10-15 12:26] LABS: HEMATOCRIT 30.2 % (42-52); HEMOGLOBIN 8.7 g/dL (14.0-18.0)
--- NOTE | 2017-10-15 12:35 | Critical Care Consultation ---
Critical Care Consultation Date of Consultation: Oct 15, 2017. Attending Physician: Hector Cardozo MD Reason for Consultation: Acute hypoxic respiratory failure, post op management History of Present Illness Mr. Garcia is a 77 year old male in the intensive care unit for post op management of his airway, presents with acute on chronic respiratory failure. Pt is here for operative debridement of an infected sacral decubitus ulcer, and was not able to be extubated after surgery today and so transferred here. Pt had developed a sacral decubitus ulcer since his last admission here, was being followed by wound care, and then referred to Dr. Orozco for management. Pt is currently intubated, ABG shows hypercapnia higher than baseline. Repeat chest x ray today compared to 2 days ago shows significant atelectasis at both bases. Past Medical/Surgical History Medical Problems: (1) A-fib (2) Abdom Aortic Aneurysm (3) Acute on chronic renal insufficiency (4) Acute on chronic systolic CHF (congestive heart failure) (5) Acute respiratory failure with hypoxia and hypercapnia (6) Anemia of chronic disease (7) Aortic dissection, thoracic (8) Bacteremia due to Gram-negative bacteria (9) Beta-hemolytic group B streptococcal sepsis (10) Buttock wound (11) CAD (coronary artery disease) (12) Cardiogenic shock (13) Chronic Kidney Disease, Unspecified (14) Chronic Obstructive Pulmonary Disease W (Acute) Exacerbation (15) Closed left hip fracture (16) Complication of catheter (17) Decubitus ulcer (18) Fever (19) Gram positive septicemia (20) H/O thrombosis (21) H/O: pneumonia (22) HTN (hypertension) (23) HTN (hypertension) (24) Hyperkalemia (25) Hyperlipidemia, Unspecified (26) Hypertrophy (Benign) Of Prostate W/O Urinary Obst & Oth Luts (27) Hypotension (28) Hypothyroidism, Unspecified (29) Hypoxia (30) Lower extremity weakness (31) Lumbar back pain (32) Pleural effusion (33) Presence of combination internal cardiac defibrillator (ICD) and pacemaker (34) Pressure ulcer (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 (36) Urinary retention Surgical Problems: (1) aortic valve replacement with cadaver valve (2) Aortocoronary Bypass (3) H/O aortic valve replacement with porcine valve (4) History of aortic valve replacement with metallic valve Family History Cancer Diabetes mellitus Social History Smoking Status: Former Smoker Smokeless Tobacco Use: No Alcohol Use: none Drug Use: none Marital Status: Housing Status: lives with significant other Occupation Status: retired Allergies Coded Allergies: Adhesives (Verified Allergy, Unknown, removed skin, 09/20/17) Home Medications Scheduled Amiodarone HCl (Amiodarone HCl), 200 MG PO QAM Ascorbic Acid (Vitamin C), 1 TAB PO QAM Aspirin (Aspirin), 81 MG PO QAM Bumetanide (Bumetanide), 2 MG PO BID Cephalexin Monohydrate (Keflex), 500 MG PO TID Docusate Sodium (Docusate Sodium), 100 MG PO QPM Famotidine (Famotidine), 20 MG PO QAM Levothyroxine Sodium (Levothyroxine Sodium), 25 MCG PO QAM Metoprolol Succinate (Metoprolol Succinate ER), 50 MG PO QAM Multivitamin (Multivitamin), 1 TAB PO QAM Nitroglycerin (Nitrostat), 0.4 MG UT PRN Potassium Chloride (Potassium Chloride Er), 10 MEQ BID Pravastatin Sodium (Pravastatin Sodium), 40 MG HS Ramipril (Ramipril), 5 MG PO QAM Tamsulosin HCl (Tamsulosin HCl), 0.4 MG PO HS Warfarin Sod (Coumadin), 1.25 MG PO DAILY@16 Current Inpatient Medications Current Inpatient Medications Medications (Trade) Dose Ordered Sig/Deion Route Start Time Stop Time Status Last Admin Dose Admin Acetaminophen (Tylenol Tab) 650 mg Q4H PRN PO 10/13/17 12:30 11/12/17 12:29 Vancomycin HCl 1250 mg/Sodium Chloride 275 ml @ 125 mls/hr Q18H IV 10/14/17 08:00 10/23/17 23:59 10/15/17 01:44 125 MLS/HR Miscellaneous Information (Consult) 1 ea UD PRN N/A 10/13/17 13:45 11/12/17 13:44 Piperacillin Sod/ Tazobactam Sod 3.375 gm/Sodium Chloride 115 ml @ 28.75 mls/ hr Q8H IV 10/13/17 20:00 10/23/17 19:59 10/15/17 04:20 28.75 MLS/HR Miscellaneous Information (Consult) 1 ea UD PRN N/A 10/13/17 13:45 11/12/17 13:44 Amiodarone HCl (Cordarone Tab) 200 mg QAM PO 10/14/17 09:00 11/13/17 08:59 10/15/17 07:14 200 MG Ascorbic Acid (Vitamin C Tab) 500 mg QAM PO 10/14/17 09:00 11/13/17 08:59 10/14/17 10:50 500 MG Docusate Sodium (coLACE CAP) 100 mg PM PO 10/13/17 21:00 11/12/17 20:59 10/14/17 20:24 100 MG Famotidine (Pepcid Tab) 20 mg QAM PO 10/14/17 09:00 11/13/17 08:59 10/14/17 10:49 20 MG Ferrous Sulfate (Feosol Tab) 325 mg QAM PO 10/14/17 09:00 11/13/17 08:59 Levothyroxine Sodium (Synthroid Tab) 25 mcg DAILYBB PO 10/14/17 06:00 11/13/17 05:59 10/14/17 05:24 25 MCG Metoprolol Succinate (Toprol Xl Tab) 50 mg QAM PO 10/14/17 09:00 11/13/17 08:59 10/15/17 07:13 50 MG Multivitamins (Multivitamin Tab) 1 tab QAM PO 10/14/17 09:00 11/13/17 08:59 10/14/17 10:47 1 TAB Nitroglycerin (Nitrostat Tab) 0.4 mg Q5M PRN UT 10/13/17 13:45 11/12/17 13:44 Pravastatin Sodium (Pravachol Tab) 40 mg HS PO 10/13/17 21:00 11/12/17 20:59 10/14/17 20:24 40 MG Tamsulosin HCl (Flomax Cap) 0.4 mg HS PO 10/13/17 21:00 11/12/17 20:59 10/14/17 20:24 0.4 MG Potassium Chloride (Klor-Con M10) 10 meq BID PO 10/13/17 21:00 11/12/17 20:59 10/14/17 20:24 10 MEQ Enteral Nutritional Formula (Boost Plus Vanilla) 1 can BID PO 10/13/17 21:00 11/12/17 20:59 10/14/17 20:23 1 CAN Bumetanide (Bumex Tab) 2 mg DAILY PO 10/14/17 09:30 11/12/17 09:29 10/14/17 10:39 2 MG Finasteride (Proscar Tab) 5 mg QAM PO 10/14/17 12:15 11/13/17 12:14 10/14/17 12:41 5 MG Fentanyl Citrate (Fentanyl Inj) 50 mcg Q5M PRN IV 10/15/17 09:30 10/15/17 13:30 Ondansetron HCl (Zofran Inj) 4 mg ONE PRN IV 10/15/17 09:30 10/15/17 14:30 Promethazine HCl 6.25 mg/Sodium Chloride 50.25 ml @ 202 mls/hr ONE PRN IV 10/15/17 09:30 10/15/17 14:30 Ephedrine Sulfate (EpHEDrine SULFATE INJ) 5 mg Q5M PRN IV 10/15/17 09:30 10/15/17 14:30 Atropine Sulfate (Atropine Sulfate 0.1mg/ml Inj) 0.5 mg Q1M PRN IV 10/15/17 09:30 10/15/17 14:30 Acetaminophen/ Hydrocodone Bitart ([place] 5/325 Tab) 1 tab Q4 PRN PO 10/15/17 10:15 10/29/17 10:14 Acetaminophen/ Hydrocodone Bitart ([place] 5/325 Tab) 2 tab Q4 PRN PO 10/15/17 10:15 10/29/17 10:14 Morphine Sulfate (MoRPHine SULFATE INJ) 2 mg Q4H PRN IV 10/15/17 10:15 10/29/17 10:14 Morphine Sulfate (MoRPHine SULFATE INJ) 4 mg Q4H PRN IV 10/15/17 10:15 10/29/17 10:14 Review of Systems ROS See HPI for pertinent positives and negatives. Otherwise limited due to intubated status Physical Exam Date Time Temp Pulse Resp B/P (MAP) Pulse Ox O2 Delivery O2 Flow Rate FiO2 10/15/17 11:03 50 10/15/17 10:39 50 10/15/17 10:23 36.9 90 18 91 2.0 10/15/17 07:08 36.9 90 18 96/61 (73) 91 Nasal Cannula 2.0 10/15/17 02:24 36.6 62 20 101/68 (79) 92 Nasal Cannula 2.0 10/15/17 01:38 92 Room Air 10/15/17 00:00 Room Air 10/14/17 23:15 37.1 92 20 89/54 (66) 88 Room Air 10/14/17 20:03 36.6 93 16 93/61 (72) 92 Room Air 10/14/17 19:25 Room Air 10/14/17 15:43 36.5 89 20 93/55 (68) 92 Room Air 10/14/17 15:15 Room Air 10/14/17 14:04 95 Room Air GENERAL: Pt is alert, able to hold his head up on his own, in no distress. Intubated with #8.0 @ 24 HENT: Normocephalic, atraumatic. EYES: Normal conjunctiva. Sclera non-icteric. NECK: Supple. FROM. RESPIRATORY: Clear to auscultation. CARDIAC: Regular rate, normal rhythm. Extremities warm and well perfused. Pulses equal. ABDOMEN: Soft, non-distended. No tenderness to palpation. No rebound or guarding. No masses. LOWER EXTREMITIES: SCDs in place, pulses equal. NEURO: Rass -1 SKIN: No rash or jaundice noted. Sacral wound on left buttock not visualized. Laboratory Results Last 24 Hours Test 10/14/17 14:24 10/14/17 22:27 10/15/17 06:00 10/15/17 10:09 Prothrombin Time 19.6 SECONDS 18.4 SECONDS 15.3 SECONDS Prothromb Time International Ratio 1.9 1.8 1.5 White Blood Count 6.98 K/uL Red Blood Count 3.73 M/uL Hemoglobin 8.7 g/dL Hematocrit 30.9 % Mean Corpuscular Volume 82.8 fL Mean Corpuscular Hemoglobin 23.3 pg Mean Corpuscular Hemoglobin Concent 28.2 g/dl RDW Standard Deviation 52.6 fL RDW Coefficient of Variation 17.4 % Platelet Count 169 K/uL Sodium Level 140 mmol/L Potassium Level 4.2 mmol/L Chloride Level 105 mmol/L Carbon Dioxide Level 31 mmol/L Anion Gap 4.0 mmol/L Blood Urea Nitrogen 27 mg/dl Creatinine 1.48 mg/dl Est Creatinine Clear Calc Drug Dose 46.0 ml/min Estimated GFR () 52.1 Estimated GFR (Non- 45.0 BUN/Creatinine Ratio 18.5 Random Glucose 93 mg/dl Calcium Level 8.1 mg/dl Bedside Blood Gas pH (LAB) 7.18 Bedside Blood Gas pCO2 (LAB) 85 mmHg Bedside Blood Gas pO2 (LAB) 144 mmHg Bedside Blood Gas HCO3 (LAB) 32 meq/L Bedside Blood Gas Total CO2 34 mEq/l Bedside Blood Gas Base Excess (LAB) 3.0 meq/L Bedside Blood Gas O2 Saturation 98.0 % Test 10/15/17 10:56 10/15/17 12:10 Blood Gas Sample Site Art Line Bedside Blood Gas pH (LAB) 7.29 Bedside Blood Gas pCO2 (LAB) 61 mmHg Bedside Blood Gas pO2 (LAB) 78 mmHg Bedside Blood Gas HCO3 (LAB) 30 meq/L Bedside Blood Gas Total CO2 31 mEq/l Bedside Blood Gas Base Excess (LAB) 3.0 meq/L Bedside Blood Gas O2 Saturation 93.0 % Elio Test NA Oxygen Delivery Device Ventilator Bedside FiO2 50 % Blood Gas PEEP 5 Diagnostic Results CHEST ONE VIEW PORTABLE CLINICAL HISTORY: acute resp failure. Dyspnea COMPARISON STUDY: 10/13/2017 FINDINGS: Interval placement of an endotracheal tube 2 cm both holly. Moderate increase in cardiac size. Interval development of a left basilar infiltrate and/or effusion. Increased prominence of pulmonary vasculature. IMPRESSION: 1. Interval development of a consolidative infiltrate left base. Mild congestive failure. Endotracheal tube 2 cm above the holly. Assessment & Plan 1. Acute on chronic hypercapnic respiratory failure. 2. The patient has poor response to anesthesia, resulted and retaining CO2. 3. Left-sided new onset pleural effusion. 4. 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 5. Morbid obesity. 6. Status post abscess drainage left hip area. 7. A. fib, pacemaker in place, history of AVR prosthetic valve replaced by bioprosthetic valve. 8. History of hypertension hyperlipidemia. Plan: 1. Place the patient on spontaneous breathing trial once he is more awake. 2. Infected patient proceeded to full extubation successfully to a nasal cannula. 3. He continues to have mild nausea which has been controlled. 4. Discontinue morphine IV. 5. Minimize narcotic use unless is necessary. 6. Continue Vanco and Zosyn per ID until further cultures returned from the drainage of the left gluteal abscess. 7. Oral intake can be started after the extubation. 8. DVT prophylaxis. 9. Discussed with the staff and details. And with the family at the bedside. Critical care time spent with the patient was 35 minutes. Resident Tracking Resident Involvement: Resident Care Provided Care Provided: Adult Hospital Medicine
[2017-10-15] MEDS ORDERED: NURSING VERBAL MED ORDER ONE (17:00)
[2017-10-15] MEDS: SODIUM CHLORIDE 0.9% 1000ML 1,000 ML IV SCH (17:03)
[2017-10-15] MEDS ORDERED: VANCOMYCIN TROUGH ONE (19:30)
[2017-10-15] MEDS: DOCUSATE SODIUM 100 MG CAP PO SCH (20:56)
[2017-10-15] MEDS: PRAVASTATIN SOD 40 MG TAB PO SCH (20:56)
[2017-10-15] MEDS: TAMSULOSIN HCL 0.4 MG CAP PO SCH (20:56)
[2017-10-15] MEDS ORDERED: LEVALBUTEROL/IPRATROPIUM NEB INH SCH (21:00)
--- NOTE | 2017-10-15 21:28 | Critical Care Progress Note ---
Critical Care Progress Note Date of Service Oct 15, 2017. Critical Care Progress Note I was approached by nursing staff as the patient has had increasing oxygen requirements status post extubation. In addition, the patient was felt to be increasingly lethargic. On independent evaluation, the patient is sleeping. He does awake with painful stimuli. He is able to state his name as well as date of , however this is all slowly provided. He knows that he is in [place] and at the [facility] as well. He has no focal neurological deficits on exam. Record was reviewed as well. At this point, I did order an ABG prior to place the patient on BiPAP for increased respiratory support. In addition, I ordered an H&H as the patient had drifted down slightly after surgery. CT of the head and chest were obtained and reviewed by myself as described below. Patient had improving oxygenation on BiPAP. He was slightly more awake and alert after institution of BiPAP. He is mentating better as well. We will continue to monitor closely and repeat ABGs as needed. Radiological imaging and reports were reviewed by myself. Radiologist's Interpretation as follows: HEAD WITHOUT CONTRAST (CT) CLINICAL HISTORY: 77 years-old Male presenting with confusion s/p sx. TECHNIQUE: Multidetector CT imaging of the head was performed without the use of intravenous contrast. IV contrast: None. A dose lowering technique was used consistent with the principles of ALARA (as low as reasonably achievable). COMPARISON: 07/30/2017. CT DOSE (mGy.cm): The estimated cumulative dose is 1351.[address] scans. FINDINGS: Pre Wave Assembler topogram: Unremarkable. Ventricles and sulci normal in size. Old right parietal lobe infarct. No mass effect or midline shift. No hemorrhage or acute territorial infarct. No extra-axial fluid collection. Paranasal sinuses and mastoid air cells clear. Calvarium intact. IMPRESSION: 1. No significant change compared to the prior study. No acute intracranial abnormality. Old right parietal lobe infarct. (CHEST) THORAX WITHOUT CLINICAL HISTORY: 77 years-old Male presenting with hypoxia - new LLL consolidation. TECHNIQUE: Multidetector CT imaging of the chest was performed without the use of intravenous contrast. IV contrast: None. A dose lowering technique was used consistent with the principles of ALARA (as low as reasonably achievable). COMPARISON: 07/30/2017. CT DOSE (mGy.cm): The estimated cumulative dose is 1351.36 mGy.cm. FINDINGS: Pre Wave Assembler topogram: The patient is edentulous. Left subclavian implanted cardiac defibrillator with leads to the right atrium and right ventricular apex. Median sternotomy wires noted. Cardiomegaly. On soft tissue windows, well-defined hypodense 2.6 cm nodule the left lobe of the thyroid. Surgical clips evident in the right axilla. Bilateral gynecomastia. Prominence of mediastinal and left subpectoral lymph nodes. The left subpectoral lymph node measures 11 mm in the short axis, increased in size from prior. Mediastinal lymph nodes are subcentimeter in the short axis. Evaluation of jc limited in the absence of intravenous contrast. Significant chronic abnormality of the aorta with circumferential wall thickening, which may in part be postsurgical. The appearance is unchanged since 2009. Postsurgical changes of aortic valve replacement. Multichamber enlargement of the heart with leads visualized to the right atrium and right ventricular apex. Coronary artery calcification. Small to moderate right and small left pleural effusions. These are unchanged from prior. Dilatation of the inferior vena cava. On lung windows, extensive primarily dependent consolidation. This is overall decreased since the prior exam most significantly in the left lung. Mild apical emphysema. Subsegmental airways obstruction in the lower lobes though central airways remain patent. On bone windows, degenerative changes of the spine. Old rib fractures evident bilaterally. IMPRESSION: 1. Significant interval decrease in left lung consolidation compatible with resolving pneumonia. 2. The current distribution of consolidation in the lungs suggests passive atelectasis secondary to the presence of the bilateral pleural effusions, which are unchanged in size from prior. 3. Increased size of left retropectoral lymph node is most likely reactive. 4. Chronic abnormality of the aorta, which may in part be postsurgical. 5. Postsurgical changes of aortic valve replacement. 6. Left subclavian ICD. 7. Cardiomegaly. 8. Dominant left thyroid lobe nodule. I have personally spent 45 minutes of critical care time in the direct management of this patient. This is a life/limb threatening event. This includes time spent evaluating patient, direct bedside care, chart review, placing orders, interpretation of diagnostic studies, discussion with consultants, patient, and family members, as well as other required patient management activities. This time is exclusive of all separately billable procedures, and teaching time and separate from and in addition to any other critical care service time.
[2017-10-15] MEDS: LEVALBUTEROL 1.25MG/0.5ML NEB INH SCH ×2 (21:55→22:37)
[2017-10-15] MEDS: IPRATROPIUM BROMIDE NEB SOLN 0.02% 2.5 ML VIAL INH SCH ×2 (21:55→22:37)
--- NOTE | 2017-10-15 22:08 | DIAGNOSTIC IMAGING REPORT ---
HEAD WITHOUT CONTRAST (CT) CLINICAL HISTORY: 77 years-old Male presenting with confusion s/p sx. TECHNIQUE: Multidetector CT imaging of the head was performed without the use of intravenous contrast. IV contrast: None. A dose lowering technique was used consistent with the principles of ALARA (as low as reasonably achievable). COMPARISON: 07/30/2017. CT DOSE (mGy.cm): The estimated cumulative dose is 1351.[address] scans. FINDINGS: Display Manager topogram: Unremarkable. Ventricles and sulci normal in size. Old right parietal lobe infarct. No mass effect or midline shift. No hemorrhage or acute territorial infarct. No extra-axial fluid collection. Paranasal sinuses and mastoid air cells clear. Calvarium intact. IMPRESSION: 1. No significant change compared to the prior study. No acute intracranial abnormality. Old right parietal lobe infarct. Electronically signed by: Oj Ham M.D. 10/15/2017 10:07 PM Dictated Date/Time: 10/15/2017 10:05 PM
--- NOTE | 2017-10-15 22:24 | DIAGNOSTIC IMAGING REPORT ---
(CHEST) THORAX WITHOUT CLINICAL HISTORY: 77 years-old Male presenting with hypoxia - new LLL consolidation. TECHNIQUE: Multidetector CT imaging of the chest was performed without the use of intravenous contrast. IV contrast: None. A dose lowering technique was used consistent with the principles of ALARA (as low as reasonably achievable). COMPARISON: 07/30/2017. CT DOSE (mGy.cm): The estimated cumulative dose is 1351.36 mGy.cm. FINDINGS: Subway Car Repairer topogram: The patient is edentulous. Left subclavian implanted cardiac defibrillator with leads to the right atrium and right ventricular apex. Median sternotomy wires noted. Cardiomegaly. On soft tissue windows, well-defined hypodense 2.6 cm nodule the left lobe of the thyroid. Surgical clips evident in the right axilla. Bilateral gynecomastia. Prominence of mediastinal and left subpectoral lymph nodes. The left subpectoral lymph node measures 11 mm in the short axis, increased in size from prior. Mediastinal lymph nodes are subcentimeter in the short axis. Evaluation of jc limited in the absence of intravenous contrast. Significant chronic abnormality of the aorta with circumferential wall thickening, which may in part be postsurgical. The appearance is unchanged since 2009. Postsurgical changes of aortic valve replacement. Multichamber enlargement of the heart with leads visualized to the right atrium and right ventricular apex. Coronary artery calcification. Small to moderate right and small left pleural effusions. These are unchanged from prior. Dilatation of the inferior vena cava. On lung windows, extensive primarily dependent consolidation. This is overall decreased since the prior exam most significantly in the left lung. Mild apical emphysema. Subsegmental airways obstruction in the lower lobes though central airways remain patent. On bone windows, degenerative changes of the spine. Old rib fractures evident bilaterally. IMPRESSION: 1. Significant interval decrease in left lung consolidation compatible with resolving pneumonia. 2. The current distribution of consolidation in the lungs suggests passive atelectasis secondary to the presence of the bilateral pleural effusions, which are unchanged in size from prior. 3. Increased size of left retropectoral lymph node is most likely reactive. 4. Chronic abnormality of the aorta, which may in part be postsurgical. 5. Postsurgical changes of aortic valve replacement. 6. Left subclavian ICD. 7. Cardiomegaly. 8. Dominant left thyroid lobe nodule. Electronically signed by: Oj Ham M.D. 10/15/2017 10:23 PM Dictated Date/Time: 10/15/2017 10:17 PM
[2017-10-15 22:32] LABS: HEMATOCRIT 33.6 % (42-52); HEMOGLOBIN 9.7 g/dL (14.0-18.0)
[2017-10-16] VITALS (84 sets, daily range): BP systolic 56–131; BP diastolic 31–73; PULSE 77–223; TEMP 36.8–37.5; O2SAT 77–100
[2017-10-16] MEDS: IPRATROPIUM BROMIDE NEB SOLN 0.02% 2.5 ML VIAL INH SCH ×4 (02:09→19:03)
[2017-10-16] MEDS: LEVALBUTEROL 1.25MG/0.5ML NEB INH SCH ×4 (02:10→19:03)
[2017-10-16] MEDS ORDERED: NURSING VERBAL MED ORDER ONE ×3 (04:00→15:15)
[2017-10-16] MEDS ORDERED: ACETAMINOPHEN IV 1000MG/100ML IV STA (04:11)
[2017-10-16] MEDS: PIPERACILL/TAZOBAC IV 3.375 GM in SODIUM CHLORIDE 0.9% 100ML 100 ML IV SCH ×3 (04:16→20:52)
[2017-10-16 05:18] LABS: HEMATOCRIT 29.9 % (42-52); HEMOGLOBIN 8.4 g/dL (14.0-18.0); MEAN CELL VOLUME 85.2 fL (80-100); MEAN CORPUSCULAR HEMOGLOBIN 23.9 pg (25-34); MEAN CORPUSCULAR HGB CONC 28.1 g/dl (32-36); MEAN PLATELET VOLUME 10.4 fL (7.4-10.4); PLATELET COUNT 140 K/uL (130-400); RED CELL DISTRIBUTION WIDTH CV 17.6 % (11.5-14.5); RED CELL DISTRIBUTION WIDTH SD 54.4 fL (36.4-46.3); WHITE BLOOD COUNT 8.22 K/uL (4.8-10.8)
[2017-10-16 05:22] LABS: INR 1.4 (0.9-1.1)
[2017-10-16 05:26] LABS: CALCIUM 8.1 mg/dl (8.5-10.1); CREATININE 1.62 mg/dl (0.60-1.40); PHOSPHORUS 4.7 mg/dl (2.5-4.9); POTASSIUM 4.7 mmol/L (3.5-5.1)
--- NOTE | 2017-10-16 05:53 | Surgery Progress Note ---
Surgery Progress Note Date of Service Oct 16, 2017. Subjective respiratory difficulties overnight- now sats improved w/ Bipap H/H stable- no active bleeding- expected drainage Objective Vital Signs: Date Time Temp Pulse Resp B/P (MAP) Pulse Ox O2 Delivery O2 Flow Rate FiO2 10/16/17 04:07 36.9 83 25 77/43 (59) 96 10/16/17 04:00 BiPAP 50 10/16/17 03:07 83 18 96/36 (52) 100 10/16/17 02:10 83 96 50 10/16/17 02:10 83 28 96 BiPAP/CPAP 50 10/16/17 02:03 37.4 81 24 81/48 (50) 98 10/16/17 01:08 82 24 83/44 (53) 94 10/16/17 00:43 82 22 82/45 (57) 95 BiPAP 10/16/17 00:00 37.5 83 27 84/50 (64) 93 10/16/17 00:00 BiPAP 50 10/15/17 22:40 83 97 50 10/15/17 22:37 83 18 97 BiPAP/CPAP 50 10/15/17 22:21 83 24 90/48 (66) 91 10/15/17 21:38 83 20 104/57 (65) 92 10/15/17 21:20 83 95 10/15/17 20:00 36.3 81 22 91/61 (71) 96 10/15/17 20:00 Nasal Cannula 3.0 10/15/17 18:00 82 18 94/57 (69) 97 Nasal Cannula 3.0 10/15/17 16:00 36.4 83 18 92/53 (66) 92 Nasal Cannula 3.0 10/15/17 16:00 92 Nasal Cannula 3.0 10/15/17 14:00 85 18 98/58 (71) 95 Nasal Cannula 3.0 10/15/17 12:00 95 CPAP 50 10/15/17 11:03 50 10/15/17 10:39 50 10/15/17 10:23 36.9 90 18 91 2.0 10/15/17 07:08 36.9 90 18 96/61 (73) 91 Nasal Cannula 2.0 Respiratory/Chest: + decreased breath sounds (on Bipap) Abdomen: soft Incision(s): drainage (dressing in place- expected drainage) Laboratory Results: Results Past 24 Hours Test 10/15/17 06:00 10/15/17 10:09 10/15/17 10:56 10/15/17 10:58 Range/Units White Blood Count 6.98 4.8-10.8 K/uL Red Blood Count 3.73 4.7-6.1 M/uL Hemoglobin 8.7 14.0-18.0 g/dL Hematocrit 30.9 42-52 % Mean Corpuscular Volume 82.8 80-100 fL Mean Corpuscular Hemoglobin 23.3 25-34 pg Mean Corpuscular Hemoglobin Concent 28.2 32-36 g/dl RDW Standard Deviation 52.6 36.4-46.3 fL RDW Coefficient of Variation 17.4 11.5-14.5 % Platelet Count 169 130-400 K/uL Prothrombin Time 15.3 9.0-12.0 SECONDS Prothromb Time International Ratio 1.5 0.9-1.1 Sodium Level 140 136-145 mmol/L Potassium Level 4.2 3.5-5.1 mmol/L Chloride Level 105 98-107 mmol/L Carbon Dioxide Level 31 21-32 mmol/L Anion Gap 4.0 3-11 mmol/L Blood Urea Nitrogen 27 7-18 mg/dl Creatinine 1.48 0.60-1.40 mg/dl Est Creatinine Clear Calc Drug Dose 46.0 ml/min Estimated GFR () 52.1 Estimated GFR (Non- 45.0 BUN/Creatinine Ratio 18.5 10-20 Random Glucose 93 70-99 mg/dl Calcium Level 8.1 8.5-10.1 mg/dl Bedside Blood Gas pH (LAB) 7.18 7.29 7.35-7.45 Bedside Blood Gas pCO2 (LAB) 85 61 35-46 mmHg Bedside Blood Gas pO2 (LAB) 144 78 80-95 mmHg Bedside Blood Gas HCO3 (LAB) 32 30 19-24 meq/L Bedside Blood Gas Total CO2 34 31 24-31 mEq/l Bedside Blood Gas Base Excess (LAB) 3.0 3.0 -9-1.8 meq/L Bedside Blood Gas O2 Saturation 98.0 93.0 90-95 % Blood Gas Sample Site Art Line Elio Test NA Oxygen Delivery Device Ventilator Bedside FiO2 50 % Blood Gas PEEP 5 Bedside Glucose 119 70-99 mg/dl Test 10/15/17 12:10 10/15/17 18:51 10/15/17 21:09 10/15/17 21:35 Range/Units Hemoglobin 8.7 9.7 14.0-18.0 g/dL Hematocrit 30.2 33.6 42-52 % Bedside Glucose 116 70-99 mg/dl Blood Gas Sample Site R Radial Bedside Blood Gas pH (LAB) 7.38 7.35-7.45 Bedside Blood Gas pCO2 (LAB) 53 35-46 mmHg Bedside Blood Gas pO2 (LAB) 83 80-95 mmHg Bedside Blood Gas HCO3 (LAB) 32 19-24 meq/L Bedside Blood Gas Total CO2 33 24-31 mEq/l Bedside Blood Gas Base Excess (LAB) 6.0 -9-1.8 meq/L Bedside Blood Gas O2 Saturation 96.0 90-95 % Elio Test NA Oxygen Delivery Device SimpleMask Test 10/16/17 00:10 10/16/17 04:39 10/16/17 05:02 10/16/17 05:43 Range/Units Bedside Glucose 119 70-99 mg/dl White Blood Count 8.22 4.8-10.8 K/uL Red Blood Count 3.51 4.7-6.1 M/uL Hemoglobin 8.4 14.0-18.0 g/dL Hematocrit 29.9 42-52 % Mean Corpuscular Volume 85.2 80-100 fL Mean Corpuscular Hemoglobin 23.9 25-34 pg Mean Corpuscular Hemoglobin Concent 28.1 32-36 g/dl RDW Standard Deviation 54.4 36.4-46.3 fL RDW Coefficient of Variation 17.6 11.5-14.5 % Platelet Count 140 130-400 K/uL Mean Platelet Volume 10.4 7.4-10.4 fL Prothrombin Time 14.3 9.0-12.0 SECONDS Prothromb Time International Ratio 1.4 0.9-1.1 Sodium Level 139 136-145 mmol/L Potassium Level 4.7 3.5-5.1 mmol/L Chloride Level 107 98-107 mmol/L Carbon Dioxide Level 32 21-32 mmol/L Anion Gap 0.0 3-11 mmol/L Blood Urea Nitrogen 28 7-18 mg/dl Creatinine 1.62 0.60-1.40 mg/dl Est Creatinine Clear Calc Drug Dose 42.1 ml/min Estimated GFR () 46.7 Estimated GFR (Non- 40.3 BUN/Creatinine Ratio 17.5 10-20 Random Glucose 89 70-99 mg/dl Calcium Level 8.1 8.5-10.1 mg/dl Phosphorus Level 4.7 2.5-4.9 mg/dl Magnesium Level 2.5 1.8-2.4 mg/dl Blood Gas Sample Site R Brachial Bedside Blood Gas pH (LAB) 7.32 7.35-7.45 Bedside Blood Gas pCO2 (LAB) 65 35-46 mmHg Bedside Blood Gas pO2 (LAB) 114 80-95 mmHg Bedside Blood Gas HCO3 (LAB) 34 19-24 meq/L Bedside Blood Gas Total CO2 36 24-31 mEq/l Bedside Blood Gas Base Excess (LAB) 8.0 -9-1.8 meq/L Bedside Blood Gas O2 Saturation 98.0 90-95 % Elio Test NA Oxygen Delivery Device BIPAP Bedside Oxygen Rate (breaths/min) 16 Bedside FiO2 50 % Blood Gas IPAP 14 Microbiology Results 10/15/17 MRSA DNA Surveillance Screen - Final, Complete Specimen Negative for MRSA by DNA Probe 10/15/17 Gram Stain - Final, Resulted 10/15/17 Bacterial Culture, Resulted Pending Assessment & Plan 10/16/17- s/p extensive incision/ debridement of severe infection and necrosis of sacral/ gluteal area- now open w/ packing. For continued care by wound clinic team- likely wound vac. At the present time- in need of respiratory and cardiac support. Transfusion may help- will defer to medical team. 10/15/17- pending coags- for Incision/ debridement gluteal ulcer/ abscess. No acute changes 10/14/17- pt is for incision / debridement in OR tomorrow cont diet, npo after midnight, anesthesia consulted lovenox/ or Heparin per medical team- no high dose lovenox tonight 10/15/17- pending coags- for Incision/ debridement gluteal ulcer/ abscess. No acute changes 10/14/17- pt is for incision / debridement in OR tomorrow cont diet, npo after midnight, anesthesia consulted lovenox/ or Heparin per medical team- no high dose lovenox tonight
[2017-10-16] MEDS: LEVOTHYROXINE 25 MCG TAB PO SCH (06:00)
[2017-10-16] MEDS: NOREPINEPHRINE BIT INJ 8 MG in DEXTROSE 5% 500ML 500 ML IV PRN ×2 (06:11→15:15)
[2017-10-16 06:46] LABS: ALBUMIN 2.1 gm/dl (3.4-5.0); ALKALINE PHOSPHATASE 76 U/L (45-117); ALT/SGPT 25 U/L (12-78); AST/SGOT 20 U/L (15-37); CKMB 1.1 ng/ml (0.5-3.6)
--- NOTE | 2017-10-16 07:04 | DIAGNOSTIC IMAGING REPORT ---
CHEST ONE VIEW PORTABLE CLINICAL HISTORY: Hypoxia and left lower lobe pulmonary consolidation COMPARISON STUDY: 10/15/2017 FINDINGS: There is a left subclavian pacer/defibrillator present. Endotracheal tube has been removed. The heart is enlarged. There is left lower lobe consolidation with associated left pleural effusion. The right lung appears generally clear.[ IMPRESSION: 1. Interval removal of the endotracheal tube 2. Cardiomegaly. Left pleural effusion with associated left lower lobe atelectasis/consolidation. Electronically signed by: Hernando Du M.D. 10/16/2017 7:03 AM Dictated Date/Time: 10/16/2017 7:02 AM
[2017-10-16] MEDS: HEPARIN SOD 5000 UNIT/0.5 ML CARP SQ SCH ×2 (08:09→18:13)
[2017-10-16] MEDS: AMIODARONE 200 MG TAB PO SCH (08:11)
[2017-10-16] MEDS: FERROUS SULFATE 325 MG TAB PO SCH (08:12)
[2017-10-16] MEDS: POTASSIUM CHLORIDE 10 MEQ TABCR PO SCH ×2 (08:12→21:37)
[2017-10-16] MEDS: MULTIVITAMIN TAB PO SCH (08:13)
[2017-10-16] MEDS: FINASTERIDE 5 MG TAB PO SCH (08:13)
[2017-10-16] MEDS: FAMOTIDINE 20 MG TAB PO SCH (08:13)
[2017-10-16] MEDS: ASCORBIC ACID 500 MG TAB PO SCH (08:14)
[2017-10-16] MEDS: METOPROLOL SUCC 50MG EXT REL TAB PO SCH (08:28)
[2017-10-16] MEDS: BOOST PLUS VANILLA PO SCH ×2 (08:29→21:17)
--- NOTE | 2017-10-16 10:22 | ECHOCARDIOGRAM REPORT ---
*NOTICE TO RECEIVING [employer]Y This information is strictly Confidential and protected under [place] law. [place] law prohibits you from making any further disclosure of this information unless further disclosure is expressly permitted by the written consent of the person to whom it pertains or is authorized by law. A general authorization for the release of medical or other information is not sufficient for this purpose. Hospital accepts no responsibility if the information is made available to any other person, INCLUDING THE PATIENT. Interpretation Summary * Name: KATHY LOREDO Study Date: 10/16/2017 08:43 AM BP: 91/50 mmHg * Patient Location: .MSICU\S\E107\S\1 HR: 100 * : 1940 (M/d/yyyy) Gender: Male Height: 69 in * Age: 77 yrs Ethnicity: [place] Weight: 212 lb * Ordering Physician: Reuben Bueno * Referring Physician: Eddy Orozco * Performed By: Jesusita Navarro RCS * * Reason For Study: CHF * BSA: 2.1 m2 * -- Conclusions -- * 1. Mildly dilated LV with mild concentric LVH. * 2. Severe LV dysfunction. LVEF 25-30% with regional wall motion abnormalities (see bullseye for details). * 3. Normal RV size with borderline function. * 4. Grade II diastolic dysfunction. * 5. Mild mitral regurgitation. * 6. Moderate TR. * 7. Normal estimated RA and PA pressures. * 8. Compared with prior study on 07/30/2017: No significant changes. Procedure Details * A complete two-dimensional transthoracic echocardiogram was performed (2D, M-mode, Doppler and color flow Doppler). Left Ventricle * The left ventricle is mildly dilated. * There is moderate concentric left ventricular hypertrophy. * Ejection Fraction = 25-30%. * Akinetic apex, mid anteroseptum and septum. Severely hypokinetic basal inferior, septum and mid inferolateral wall (see bullseye). Right Ventricle * The right ventricle is grossly normal size. * There is a catheter in the right ventricle. * The right ventricular systolic function is borderline reduced. Atria * The left atrium is severely dilated. * Borderline right atrial enlargement. * There is no evidence of atrial septal defect, but resolution does not allow assessment for a patent foramen ovale. Mitral Valve * There is no mitral valve stenosis. * There is mild mitral regurgitation. Tricuspid Valve * There is moderate tricuspid regurgitation. Aortic Valve * The aortic valve is not well visualized. * No hemodynamically significant valvular aortic stenosis. * Trace aortic regurgitation. Pulmonic Valve * The pulmonary valve is inadequately visualized, but the Doppler data is adequate for interpretation. * Pulmonic stenosis is absent. * Trace pulmonic valvular regurgitation. Great Vessels * The aortic root and proximal ascending aorta are normal sized. Pericardium/Pleural * There is no pericardial effusion. Great Vessels * Normal inferior vena cava size and collapsability with sniff indicates a normal right atrial pressure of 3 mmHg Left Ventricular Diastolic Function * Diastolic dysfunction, Grade II, consistent with elevated left atrial pressure. MMode 2D Measurements and Calculations IVSd 1.8 cm IVSs 1.7 cm LVIDd 5.7 cm LVIDs 5.3 cm LVPWd 1.5 cm LVPWs 1.8 cm IVS/LVPW 1.2 FS 6.8 % EDV(Teich) 158.7 ml ESV(Teich) 135.0 ml EF(Teich) 14.9 % EDV(cubed) 183.1 ml ESV(cubed) 148.4 ml EF(cubed) 18.9 % % IVS thick -4.16 % % LVPW thick 18.7 % LV mass(C)d 459.2 grams LV mass(C)dI 216.9 grams/m\S\2 LV mass(C)s 453.5 grams LV mass(C)sI 214.2 grams/m\S\2 SV(Teich) 23.6 ml SI(Teich) 11.2 ml/m\S\2 SV(cubed) 34.7 ml SI(cubed) 16.4 ml/m\S\2 Ao root diam 3.1 cm Ao root area 7.7 cm\S\2 LVOT diam 2.2 cm LVOT area 3.8 cm\S\2 LVAd ap4 52.1 cm\S\2 LVLd ap4 9.6 cm EDV(MOD-sp4) 225.0 ml EDV(sp4-el) 239.0 ml LVAs ap4 45.6 cm\S\2 LVLs ap4 9.4 cm ESV(MOD-sp4) 178.9 ml ESV(sp4-el) 188.2 ml EF(MOD-sp4) 20.5 % EF(sp4-el) 21.3 % LVAd ap2 40.0 cm\S\2 LVLd ap2 7.8 cm EDV(MOD-sp2) 171.2 ml EDV(sp2-el) 174.8 ml LVAs ap2 31.0 cm\S\2 LVLs ap2 7.4 cm ESV(MOD-sp2) 109.0 ml ESV(sp2-el) 109.8 ml EF(MOD-sp2) 36.3 % EF(sp2-el) 37.2 % LVLd %diff -24.18 % EDV(MOD-bp) 219.7 ml LVLs %diff -26.40 % ESV(MOD-bp) 156.8 ml EF(MOD-bp) 28.6 % SV(MOD-sp4) 46.1 ml SI(MOD-sp4) 21.8 ml/m\S\2 SV(MOD-sp2) 62.2 ml SI(MOD-sp2) 29.4 ml/m\S\2 SV(MOD-bp) 62.8 ml SI(MOD-bp) 29.7 ml/m\S\2 SV(sp4-el) 50.9 ml SI(sp4-el) 24.0 ml/m\S\2 SV(sp2-el) 65.0 ml SI(sp2-el) 30.7 ml/m\S\2 Doppler Measurements and Calculations MV E max lopez 104.1 cm/sec MV P1/2t max lopez 113.9 cm/sec MV P1/2t 70.2 msec MVA(P1/2t) 3.1 cm\S\2 MV dec slope 475.0 cm/sec\S\2 MV dec time 0.16 sec Ao V2 max 147.8 cm/sec Ao max PG 8.7 mmHg Ao max PG (full) 7.7 mmHg TORRES(V,A) 1.3 cm\S\2 TORRES(V,D) 1.3 cm\S\2 LV V1 max PG 1.0 mmHg LV V1 max 50.9 cm/sec MR max lopez 444.7 cm/sec MR max PG 79.5 mmHg PA V2 max 115.6 cm/sec PA max PG 5.3 mmHg PI max lopez 160.5 cm/sec PI max PG 10.3 mmHg PI dec slope 139.8 cm/sec\S\2 PI P1/2t 336.3 msec TR max lopez 241.4 cm/sec
[2017-10-16] MEDS ORDERED: DOBUTamine 500MG / 250ML D5W ONE (10:39)
[2017-10-16] MEDS ORDERED: DOBUTAMINE 500MG / D5W IV PRN (12:15)
--- NOTE | 2017-10-16 13:21 | Hospitalist Progress Note ---
Hospitalist Progress Note Date of Service Oct 16, 2017. (Judie Rivera ., [place]) Subjective Pt evaluation today including: conversation w/ patient, conversation w/ family , physical exam, chart review, lab review, review of inpatient medication list Voiding: suggs catheter in place Mr. Garcia continues to require intensive care due to hypotension and need for pressor support. He is extubated and requiring 3L NC. He awakens with verbal stimulus but is lethargic. He is unable to go through a whole ROS but does deny pain (Judie Rivera ., [place]) Medications Medications Administered Medications (Trade) Dose Ordered Sig/Deion Route Start Time Stop Time Status Last Admin Dose Admin Vancomycin HCl 1250 mg/Sodium Chloride 275 ml @ 125 mls/hr Q18H IV 10/14/17 08:00 10/15/17 12:00 DC 10/15/17 01:44 125 MLS/HR Piperacillin Sod/ Tazobactam Sod 3.375 gm/Sodium Chloride 115 ml @ 28.75 mls/ hr Q8H IV 10/13/17 20:00 10/23/17 19:59 10/16/17 04:16 28.75 MLS/HR Amiodarone HCl (Cordarone Tab) 200 mg QAM PO 10/14/17 09:00 11/13/17 08:59 10/16/17 08:11 200 MG Ascorbic Acid (Vitamin C Tab) 500 mg QAM PO 10/14/17 09:00 11/13/17 08:59 10/16/17 08:14 500 MG Docusate Sodium (coLACE CAP) 100 mg PM PO 10/13/17 21:00 11/12/17 20:59 10/14/17 20:24 100 MG Famotidine (Pepcid Tab) 20 mg QAM PO 10/14/17 09:00 11/13/17 08:59 10/16/17 08:13 20 MG Ferrous Sulfate (Feosol Tab) 325 mg QAM PO 10/14/17 09:00 11/13/17 08:59 10/16/17 08:12 325 MG Levothyroxine Sodium (Synthroid Tab) 25 mcg DAILYBB PO 10/14/17 06:00 11/13/17 05:59 10/14/17 05:24 25 MCG Metoprolol Succinate (Toprol Xl Tab) 50 mg QAM PO 10/14/17 09:00 11/13/17 08:59 10/15/17 07:13 50 MG Multivitamins (Multivitamin Tab) 1 tab QAM PO 10/14/17 09:00 11/13/17 08:59 10/16/17 08:13 1 TAB Pravastatin Sodium (Pravachol Tab) 40 mg HS PO 10/13/17 21:00 11/12/17 20:59 10/14/17 20:24 40 MG Tamsulosin HCl (Flomax Cap) 0.4 mg HS PO 10/13/17 21:00 11/12/17 20:59 10/14/17 20:24 0.4 MG Potassium Chloride (Klor-Con M10) 10 meq BID PO 10/13/17 21:00 11/12/17 20:59 10/16/17 08:12 10 MEQ Vancomycin HCl 2250 mg/Sodium Chloride 545 ml @ 200 mls/hr 1430 ONCE IV 10/13/17 14:30 10/13/17 17:13 DC 10/13/17 15:33 200 MLS/HR Piperacillin Sod/ Tazobactam Sod 3.375 gm/Sodium Chloride 115 ml @ 230 mls/hr NOW ONCE IV 10/13/17 14:15 10/13/17 14:44 DC 10/13/17 15:32 230 MLS/HR Enteral Nutritional Formula (Boost Plus Vanilla) 1 can BID PO 10/13/17 21:00 11/12/17 20:59 10/16/17 08:29 1 CAN Sodium Chloride 250 ml @ 999 mls/hr Q16M ONCE IV 10/13/17 20:15 10/13/17 20:30 DC 10/13/17 20:45 999 MLS/HR Phytonadione (Mephyton Tab) 5 mg NOW STAT PO 10/14/17 08:52 10/14/17 08:56 DC 10/14/17 10:44 5 MG Bumetanide (Bumex Tab) 2 mg DAILY PO 10/14/17 09:30 11/12/17 09:29 Future Hold 10/14/17 10:39 2 MG Finasteride (Proscar Tab) 5 mg QAM PO 10/14/17 12:15 11/13/17 12:14 10/16/17 08:13 5 MG Phytonadione 5 mg/ Sodium Chloride 50.5 ml @ 101 mls/hr NOW ONCE IV 10/14/17 15:30 10/14/17 15:59 DC 10/14/17 16:03 101 MLS/HR Bupivacaine HCl (Marcaine 0.5% MPF Inj) 30 ml STK-MED ONCE .ROUTE 10/15/17 07:57 10/15/17 07:58 DC 10/15/17 09:30 7 ML Ondansetron HCl (Zofran Inj) 4 mg ONE PRN IV 10/15/17 09:30 10/15/17 14:30 DC 10/15/17 14:00 4 MG Miscellaneous (Floseal Hemostatic Matrix 10ml) 10 ml ONE ONCE TOP 10/15/17 09:47 10/15/17 09:48 DC 10/15/17 09:47 10 ML Sodium Chloride 1,000 ml @ 50 mls/hr Q20H IV 10/15/17 17:15 11/14/17 17:14 10/15/17 17:03 50 MLS/HR Ipratropium [place] (Atrovent 0.02% 0.5MG/2.5ML Neb) 0.5 mg Q6R INH 10/15/17 21:00 11/14/17 20:59 10/16/17 07:20 0.5 MG Levalbuterol (Xopenex 1.25MG/ 0.5ML Neb) 1.25 mg Q6R INH 10/15/17 21:00 11/14/17 20:59 10/16/17 07:20 1.25 MG Acetaminophen 100 ml @ 400 mls/hr NOW STAT IV 10/16/17 04:11 10/16/17 04:25 DC 10/16/17 04:16 400 MLS/HR Norepinephrine Bitartrate 8 mg/ Dextrose 508 ml @ 0 mls/hr Q0M PRN IV 10/16/17 05:26 11/15/17 05:25 10/16/17 06:11 18 MLS/HR Heparin Sodium (Porcine) (Heparin Sq 5000 Unit/0.5ml) 5,000 unit Q12H SQ 10/16/17 06:00 11/15/17 05:59 10/16/17 08:09 5,000 UNIT Dobutamine HCl (DOBUTamine / D5W) 500 mg STK-MED ONCE .ROUTE 10/16/17 10:39 10/16/17 10:40 DC 10/16/17 10:45 500 MG (Judie Rivera, [place]) Objective Vital Signs Date Time Temp Pulse Resp B/P (MAP) Pulse Ox O2 Delivery O2 Flow Rate FiO2 10/16/17 12:01 87 26 77/45 (53) 98 10/16/17 12:00 Nasal Cannula 3.0 10/16/17 11:51 84 17 70/52 (64) 77 10/16/17 11:11 85 24 87/33 (47) 90 10/16/17 11:01 87 24 79/48 (54) 10/16/17 11:01 87 24 79/48 (54) 10/16/17 10:51 85 22 66/47 (50) 93 10/16/17 10:31 85 19 56/36 (40) 93 10/16/17 10:25 88 19 63/42 (50) 95 10/16/17 10:16 84 19 73/42 (47) 90 10/16/17 09:46 85 22 80/48 (63) 92 10/16/17 09:33 86 25 82/47 (59) 10/16/17 09:31 85 23 76/47 (63) 10/16/17 09:21 83 20 90/46 (55) 100 10/16/17 09:11 86 25 86/45 (49) 90 10/16/17 09:01 84 20 89/56 (71) 10/16/17 08:51 88 19 84/52 (70) 87 10/16/17 08:41 86 23 94/46 (69) 98 10/16/17 08:21 88 21 79/63 (66) 97 10/16/17 08:11 90 23 83/45 (62) 93 10/16/17 08:00 88 19 82/47 (64) 10/16/17 08:00 Nasal Cannula 3.0 10/16/17 07:51 88 23 85/51 (66) 95 10/16/17 07:41 86 20 92/50 (64) 98 10/16/17 07:31 87 21 91/54 (70) 99 10/16/17 07:27 87 99 40 18 07:21 87 21 91/53 (71) 99 18 07:21 87 14 99 BiPAP/CPAP 40 10/16/17 07:11 87 20 92/53 (64) 98 10/16/17 07:01 87 21 90/53 (65) 99 10/16/17 07:00 86 34 100 10/16/17 06:39 83 91/50 (64) 10/16/17 06:22 93/51 (65) 10/16/17 06:00 36.9 83 23 73/42 (52) 96 10/16/17 04:07 36.9 83 25 77/43 (59) 96 10/16/17 04:00 BiPAP 50 10/16/17 03:07 83 18 96/36 (52) 100 10/16/17 02:10 83 96 50 10/16/17 02:10 83 28 96 BiPAP/CPAP 50 10/16/17 02:03 37.4 81 24 81/48 (50) 98 10/16/17 01:08 82 24 83/44 (53) 94 10/16/17 00:43 82 22 82/45 (57) 95 BiPAP 10/16/17 00:00 37.5 83 27 84/50 (64) 93 10/16/17 00:00 BiPAP 50 10/15/17 22:40 83 97 50 10/15/17 22:37 83 18 97 BiPAP/CPAP 50 10/15/17 22:21 83 24 90/48 (66) 91 10/15/17 21:38 83 20 104/57 (65) 92 18 21:20 83 95 18 20:00 36.3 81 22 91/61 (71) 96 18 20:00 Nasal Cannula 3.0 10/15/17 18:00 82 18 94/57 (69) 97 Nasal Cannula 3.0 10/15/17 16:00 36.4 83 18 92/53 (66) 92 Nasal Cannula 3.0 10/15/17 16:00 92 Nasal Cannula 3.0 10/15/17 14:00 85 18 98/58 (71) 95 Nasal Cannula 3.0 (Judie Rivera, [place]) Physical Exam Notes: General: no distress Eyes: normal inspection, PERLL Respiratory: chest non tender, clear to auscultation, normal breath sounds, no respiratory distress, no accessory muscle use Cardiac: regular rate and rhythm, no rub or gallop, systolic murmur, no edema, GI/: active bowel sounds, no abd pain or tenderness, soft, non distended Extremities: normal range of motion, normal strength, non tender Neuro/Psych:lethargic, normal mood and affect Skin: pale (Judie Rivera CRNP) Laboratory Results Last 24 Hours Test 10/15/17 18:51 10/15/17 21:09 10/15/17 21:35 10/16/17 00:10 Bedside Glucose 116 mg/dl 119 mg/dl Blood Gas Sample Site R Radial Bedside Blood Gas pH (LAB) 7.38 Bedside Blood Gas pCO2 (LAB) 53 mmHg Bedside Blood Gas pO2 (LAB) 83 mmHg Bedside Blood Gas HCO3 (LAB) 32 meq/L Bedside Blood Gas Total CO2 33 mEq/l Bedside Blood Gas Base Excess (LAB) 6.0 meq/L Bedside Blood Gas O2 Saturation 96.0 % Leio Test NA Oxygen Delivery Device SimpleMask Hemoglobin 9.7 g/dL Hematocrit 33.6 % Test 10/16/17 04:39 10/16/17 05:02 White Blood Count 8.22 K/uL Red Blood Count 3.51 M/uL Hemoglobin 8.4 g/dL Hematocrit 29.9 % Mean Corpuscular Volume 85.2 fL Mean Corpuscular Hemoglobin 23.9 pg Mean Corpuscular Hemoglobin Concent 28.1 g/dl RDW Standard Deviation 54.4 fL RDW Coefficient of Variation 17.6 % Platelet Count 140 K/uL Mean Platelet Volume 10.4 fL Prothrombin Time 14.3 SECONDS Prothromb Time International Ratio 1.4 Sodium Level 139 mmol/L Potassium Level 4.7 mmol/L Chloride Level 107 mmol/L Carbon Dioxide Level 32 mmol/L Anion Gap 0.0 mmol/L Blood Urea Nitrogen 28 mg/dl Creatinine 1.62 mg/dl Est Creatinine Clear Calc Drug Dose 42.1 ml/min Estimated GFR () 46.7 Estimated GFR (Non- 40.3 BUN/Creatinine Ratio 17.5 Random Glucose 89 mg/dl Calcium Level 8.1 mg/dl Phosphorus Level 4.7 mg/dl Magnesium Level 2.5 mg/dl Total Bilirubin 0.5 mg/dl Direct Bilirubin 0.3 mg/dl Aspartate Amino Transf (AST/SGOT) 20 U/L Alanine Aminotransferase (ALT/SGPT) 25 U/L Alkaline Phosphatase 76 U/L Total Creatine Kinase 29 U/L Creatine Kinase MB 1.1 ng/ml Creatine Kinase MB Ratio 3.8 Troponin I < 0.015 ng/ml Total Protein 6.0 gm/dl Albumin 2.1 gm/dl Blood Gas Sample Site R Brachial Bedside Blood Gas pH (LAB) 7.32 Bedside Blood Gas pCO2 (LAB) 65 mmHg Bedside Blood Gas pO2 (LAB) 114 mmHg Bedside Blood Gas HCO3 (LAB) 34 meq/L Bedside Blood Gas Total CO2 36 mEq/l Bedside Blood Gas Base Excess (LAB) 8.0 meq/L Bedside Blood Gas O2 Saturation 98.0 % Elio Test NA Oxygen Delivery Device BIPAP Bedside Oxygen Rate (breaths/min) 16 Bedside FiO2 50 % Blood Gas IPAP 14 (Judie Rivera CRNP) Assessment and Plan Mr. Garcia is a 77 year old man here for surgical intervention of a sacral decubitus Ulcer Sacral Decubitus Ulcer post op 10/15 - Consulted general surgery - Discontinued Vanc as surface culture grew out christianson sensitive proteus and abscess drainage is growing gram negative bacilli, continue zosyn - ID consulted - BC ngtd, Post op Hypotension, CAD S/P CABG; AAA/Aortic Dissection; S/P ICD/Pacer; Chronic Systolic CHF; Atrial Fibrillation: - Hypotensive, requiring pressor support with dobutamine - continue Bumex bid when hypotension improves, amiodarone, metoprolol - Coumadin held for possible procedure Friday - patient held since Friday, reversed with vitamin K x 3 doses, resume Coumadin today - INR am CKD III - patient's creatinine 1.5, baseline around 1-1.3 - will trend prp, hold NADEEM, will return Bumex to bid when pressures can tolerate - avoid nephrotoxins where possible Hypothyroid - continue levothyroxine BPH - continue tamsulosin PT/OT when out of ICU (Judie Rivera CRNP) DITCHER Physician Supervision Note: I interviewed and examined the patient. Discussed with Judie Rivera NP and agree with findings and plan as documented in the note. Any exceptions or clarifications are listed here: None Patient is seen in the ICU in the presence of his family. He still on pressors including dobutamine due to his poor systolic function. He continues to have hypercarbic respiratory failure with augmentation of CPAP he has no focal complaints or problems other than feeling weak and is forgetful about yesterday His heart exam is distant regular with a systolic murmur his lungs have bibasilar crackles abdomen is normoactive bowel sounds soft and nontender Patient is status post decompensation after sacral decubitus debridement due to decompensation of his chronic systolic heart failure and then subsequent acute respiratory failure with hypercarbia needing to be supplemented by noninvasive ventilation continue ICU oversight with antibiotics treatment for his decubitus ulcer Documented By: Vijay Stack (Vijay Stack M.D.)
--- NOTE | 2017-10-16 13:22 | Wound Progress Note: Inpatient ---
Wound Progress Note Date of Service Oct 16, 2017. Subjective Pt evaluation today including: conversation w/ patient, conversation w/ family , physical exam, chart review Patient was admitted to [facility] 3 days ago for surgical debridement of a stage III pressure ulcer in sacral region. Patient was referred from the wound clinic 2 weeks ago. Patient currently is resting comfortably in hospital bed. Patient denies any significant pain. Patient currently denies any fever or chills. Patient denies any shortness of breath, chest discomfort, abdominal pain, nausea or vomiting. Patient denies any other systemic complaints. Objective Vital Signs Date Time Temp Pulse Resp B/P (MAP) Pulse Ox O2 Delivery O2 Flow Rate FiO2 10/16/17 12:01 87 26 77/45 (53) 98 10/16/17 12:00 Nasal Cannula 3.0 10/16/17 11:51 84 17 70/52 (64) 77 10/16/17 11:11 85 24 87/33 (47) 90 10/16/17 11:01 87 24 79/48 (54) 10/16/17 11:01 87 24 79/48 (54) 10/16/17 10:51 85 22 66/47 (50) 93 10/16/17 10:31 85 19 56/36 (40) 93 10/16/17 10:25 88 19 63/42 (50) 95 10/16/17 10:16 84 19 73/42 (47) 90 10/16/17 09:46 85 22 80/48 (63) 92 10/16/17 09:33 86 25 82/47 (59) 10/16/17 09:31 85 23 76/47 (63) 10/16/17 09:21 83 20 90/46 (55) 100 10/16/17 09:11 86 25 86/45 (49) 90 10/16/17 09:01 84 20 89/56 (71) 10/16/17 08:51 88 19 84/52 (70) 87 10/16/17 08:41 86 23 94/46 (69) 98 10/16/17 08:21 88 21 79/63 (66) 97 10/16/17 08:11 90 23 83/45 (62) 93 10/16/17 08:00 88 19 82/47 (64) 10/16/17 08:00 Nasal Cannula 3.0 10/16/17 07:51 88 23 85/51 (66) 95 18 07:41 86 20 92/50 (64) 98 18 07:31 87 21 91/54 (70) 99 18 07:27 87 99 40 18 07:21 87 21 91/53 (71) 99 18 07:21 87 14 99 BiPAP/CPAP 40 10/16/17 07:11 87 20 92/53 (64) 98 10/16/17 07:01 87 21 90/53 (65) 99 10/16/17 07:00 86 34 100 10/16/17 06:39 83 91/50 (64) 10/16/17 06:22 93/51 (65) 10/16/17 06:00 36.9 83 23 73/42 (52) 96 10/16/17 04:07 36.9 83 25 77/43 (59) 96 10/16/17 04:00 BiPAP 50 10/16/17 03:07 83 18 96/36 (52) 100 10/16/17 02:10 83 96 50 10/16/17 02:10 83 28 96 BiPAP/CPAP 50 10/16/17 02:03 37.4 81 24 81/48 (50) 98 10/16/17 01:08 82 24 83/44 (53) 94 10/16/17 00:43 82 22 82/45 (57) 95 BiPAP 10/16/17 00:00 37.5 83 27 84/50 (64) 93 10/16/17 00:00 BiPAP 50 10/15/17 22:40 83 97 50 18 22:37 83 18 97 BiPAP/CPAP 50 10/15/17 22:21 83 24 90/48 (66) 91 18 21:38 83 20 104/57 (65) 92 18 21:20 83 95 18 20:00 36.3 81 22 91/61 (71) 96 18 20:00 Nasal Cannula 3.0 18 18:00 82 18 94/57 (69) 97 Nasal Cannula 3.0 18 16:00 36.4 83 18 92/53 (66) 92 Nasal Cannula 3.0 4/18/18 16:00 92 Nasal Cannula 3.0 10/15/17 14:00 85 18 98/58 (71) 95 Nasal Cannula 3.0 Physical Exam Notes: Patient is currently lying comfortably in bed at this time. Vital signs were reviewed patient is afebrile. The postoperative ulcerative site today measures 9.5 x 10.7 x 0.9 cm in the sacral region. No evidence of any central slough or eschar formation is noted. No active bleeding is present. Skin margins are clean. No pain to palpation in the periphery or fluctuance noted. No active drainage or odor present. No periwound erythema noted. Laboratory Results Last 24 Hours Test 10/15/17 18:51 10/15/17 21:09 10/15/17 21:35 10/16/17 00:10 Bedside Glucose 116 mg/dl 119 mg/dl Blood Gas Sample Site R Radial Bedside Blood Gas pH (LAB) 7.38 Bedside Blood Gas pCO2 (LAB) 53 mmHg Bedside Blood Gas pO2 (LAB) 83 mmHg Bedside Blood Gas HCO3 (LAB) 32 meq/L Bedside Blood Gas Total CO2 33 mEq/l Bedside Blood Gas Base Excess (LAB) 6.0 meq/L Bedside Blood Gas O2 Saturation 96.0 % Elio Test NA Oxygen Delivery Device SimpleMask Hemoglobin 9.7 g/dL Hematocrit 33.6 % Test 10/16/17 04:39 10/16/17 05:02 White Blood Count 8.22 K/uL Red Blood Count 3.51 M/uL Hemoglobin 8.4 g/dL Hematocrit 29.9 % Mean Corpuscular Volume 85.2 fL Mean Corpuscular Hemoglobin 23.9 pg Mean Corpuscular Hemoglobin Concent 28.1 g/dl RDW Standard Deviation 54.4 fL RDW Coefficient of Variation 17.6 % Platelet Count 140 K/uL Mean Platelet Volume 10.4 fL Prothrombin Time 14.3 SECONDS Prothromb Time International Ratio 1.4 Sodium Level 139 mmol/L Potassium Level 4.7 mmol/L Chloride Level 107 mmol/L Carbon Dioxide Level 32 mmol/L Anion Gap 0.0 mmol/L Blood Urea Nitrogen 28 mg/dl Creatinine 1.62 mg/dl Est Creatinine Clear Calc Drug Dose 42.1 ml/min Estimated GFR () 46.7 Estimated GFR (Non- 40.3 BUN/Creatinine Ratio 17.5 Random Glucose 89 mg/dl Calcium Level 8.1 mg/dl Phosphorus Level 4.7 mg/dl Magnesium Level 2.5 mg/dl Total Bilirubin 0.5 mg/dl Direct Bilirubin 0.3 mg/dl Aspartate Amino Transf (AST/SGOT) 20 U/L Alanine Aminotransferase (ALT/SGPT) 25 U/L Alkaline Phosphatase 76 U/L Total Creatine Kinase 29 U/L Creatine Kinase MB 1.1 ng/ml Creatine Kinase MB Ratio 3.8 Troponin I < 0.015 ng/ml Total Protein 6.0 gm/dl Albumin 2.1 gm/dl Blood Gas Sample Site R Brachial Bedside Blood Gas pH (LAB) 7.32 Bedside Blood Gas pCO2 (LAB) 65 mmHg Bedside Blood Gas pO2 (LAB) 114 mmHg Bedside Blood Gas HCO3 (LAB) 34 meq/L Bedside Blood Gas Total CO2 36 mEq/l Bedside Blood Gas Base Excess (LAB) 8.0 meq/L Bedside Blood Gas O2 Saturation 98.0 % Elio Test NA Oxygen Delivery Device BIPAP Bedside Oxygen Rate (breaths/min) 16 Bedside FiO2 50 % Blood Gas IPAP 14 Assessment and Plan Assessment: Postoperative wound sacral region from a stage III pressure ulcer Plan: No debridement is indicated at this time. The wound site will be managed with a wound VAC black foam initially at 100 mm per negative pressure. Wound VAC will be changed 3 times weekly. We will gradually increase the pressure 125 negative over the course of the next 2-3 days. Patient will continue to be monitored during his hospital course and followed up in the outpatient clinic upon discharge.
[2017-10-16] MEDS ORDERED: DOBUTamine / D5W 500 MG IV STA (15:14)
[2017-10-16] MEDS ORDERED: SODIUM CHLORIDE 0.9% 500ML 250 ML IV ONE (15:15)
[2017-10-16] MEDS ORDERED: WARFARIN SOD 3 MG TAB PO ONE (16:00)
[2017-10-16] MEDS ORDERED: VANCOMYCIN CONSULT ACTIVE PRN (16:30)
[2017-10-16] MEDS: SODIUM CHLORIDE 0.9% 1000ML 1,000 ML IV SCH (16:36)
--- NOTE | 2017-10-16 16:36 | DIAGNOSTIC IMAGING REPORT ---
CHEST ONE VIEW PORTABLE CLINICAL HISTORY: 77 years-old Male presenting with central line. TECHNIQUE: Portable upright AP view of the chest was obtained. COMPARISON: 10/16/2017. FINDINGS: Left subclavian implanted cardiac defibrillator with leads to the right atrium and right ventricular apex. Right internal jugular central venous catheter terminates in the mid SVC, new from prior, likely containing a guidewire. Median sternotomy wires and prosthetic aortic valve again noted. Numerous external leads overlie the thorax degrading evaluation. Surgical clips again evident in the right axilla. Cardiac silhouette markedly enlarged, unchanged. Decreased aeration of the lung bases. Bronchial wall thickening and pulmonary vascular prominence. Hazy opacities suggested in the central and basilar portion of the lungs. Moderate left pleural effusion. Small right pleural effusion. No large pneumothorax. Degenerative changes of the shoulders. IMPRESSION: 1. Interval placement of a right IJ central venous catheter, which is appropriately positioned. No pneumothorax. 2. Marked cardiomegaly with findings of congestive change and developing pulmonary edema, worse from prior. Overall decreased lung aeration. 3. Small right and moderate left pleural effusions. Electronically signed by: Oj Ham M.D. 10/16/2017 4:34 PM Dictated Date/Time: 10/16/2017 4:32 PM
[2017-10-16] MEDS ORDERED: VANCOMYCIN IV 1,750 MG in SODIUM CHLORIDE 0.9% 500ML 500 ML IV ONE (17:15)
--- NOTE | 2017-10-16 17:17 | Pharmacy Progress Note ---
Pharmacy Abx Dose Progress Nt Date of Service Oct 16, 2017. Pharmacy Dosing Scope The patient is currently receiving the following antimicrobial agents per Pharmacy consult: Zosyn 3.375 gram IV every 8 hours via extended infusion Objective Height (Feet): 5 Height (Inches): 9.00 Weight (Kilograms): 96.400 Vital Signs (Past 12Hrs) Vital Signs Past 12 Hours Date Time Temp Pulse Resp B/P (MAP) Pulse Ox O2 Delivery O2 Flow Rate FiO2 10/16/17 14:48 90 95 40 10/16/17 14:41 91 21 77/60 (70) 97 10/16/17 14:31 89 22 90/53 (71) 100 10/16/17 14:26 90 22 89/51 (61) 85 10/16/17 14:11 87 24 85/48 (61) 100 10/16/17 14:05 90 99 40 10/16/17 14:04 88 14 99 BiPAP/CPAP 40 10/16/17 14:01 88 28 87/47 (52) 89 10/16/17 12:01 87 26 77/45 (53) 98 10/16/17 12:00 Nasal Cannula 3.0 10/16/17 11:51 84 17 70/52 (64) 77 10/16/17 11:11 85 24 87/33 (47) 90 10/16/17 11:01 87 24 79/48 (54) 10/16/17 11:01 87 24 79/48 (54) 10/16/17 10:51 85 22 66/47 (50) 93 10/16/17 10:31 85 19 56/36 (40) 93 10/16/17 10:25 88 19 63/42 (50) 95 10/16/17 10:16 84 19 73/42 (47) 90 10/16/17 09:46 85 22 80/48 (63) 92 10/16/17 09:33 86 25 82/47 (59) 10/16/17 09:31 85 23 76/47 (63) 10/16/17 09:21 83 20 90/46 (55) 100 10/16/17 09:11 86 25 86/45 (49) 90 10/16/17 09:01 84 20 89/56 (71) 10/16/17 08:51 88 19 84/52 (70) 87 10/16/17 08:41 86 23 94/46 (69) 98 10/16/17 08:21 88 21 79/63 (66) 97 10/16/17 08:11 90 23 83/45 (62) 93 10/16/17 08:00 88 19 82/47 (64) 10/16/17 08:00 Nasal Cannula 3.0 10/16/17 07:51 88 23 85/51 (66) 95 10/16/17 07:41 86 20 92/50 (64) 98 10/16/17 07:31 87 21 91/54 (70) 99 10/16/17 07:27 87 99 40 10/16/17 07:21 87 21 91/53 (71) 99 10/16/17 07:21 87 14 99 BiPAP/CPAP 40 10/16/17 07:11 87 20 92/53 (64) 98 10/16/17 07:01 87 21 90/53 (65) 99 10/16/17 07:00 86 34 100 10/16/17 06:39 83 91/50 (64) 10/16/17 06:22 93/51 (65) 10/16/17 06:00 36.9 83 23 73/42 (52) 96 Lab Results (24Hrs) Laboratory Tests (24 Hours) Test 10/16/17 04:39 Total Creatine Kinase 29 U/L (39-308) L White Blood Count 8.22 K/uL (4.8-10.8) Micro Results Date/Time Source Procedure Growth Status 10/16/17 16:27 Blood Blood Culture Pending Ordered 10/16/17 16:27 Blood Blood Culture Pending Ordered 10/13/17 14:54 Blood Blood Culture - Preliminary NO GROWTH TO DATE. Resulted 10/13/17 14:42 Blood Blood Culture - Preliminary NO GROWTH TO DATE. Resulted 10/15/17 10:30 Nasal MRSA DNA Surveillance Screen - Final Specimen Negative for MRSA by DNA Probe Complete 10/15/17 09:03 Abscess Sacrum Gram Stain - Final Resulted 10/15/17 09:03 Bacterial Culture - Preliminary Gram Negative Bacilli Resulted 10/13/17 15:50 Drainage - Surface Sacrum Gram Stain - Final Complete 10/13/17 15:50 Wound Culture - Final Proteus Mirabilis Complete Risk Factors for Resistance * Hospitalization for 48 hours or more within the past 90 days * Antimicrobial use within the last 90 days: keflex Assessment & Plan Assessment 77 year old male admitted to the ICU with stage III sacral decubitus ulcer s/p surgical debridement. He is on day # 4 of antimicrobial therapy. * Patient was started on vanc IV + zosyn on 10/13. * Vancomycin was discontinued on 10/15 d/t sacrum drainage growing christianson-sensitive Proteus * Vancomycin restarted on 10/16 @1700 for treatment of pulmonary infection Plan Vancomycin IV * Last dose of vancomycin 1250 mg IV was administered 10/15 @ 0200. * Restart Vanc with a modified loading dose of 1750 mg, then 1250 mg IV q18 hours * Goal trough level for pulmonary infection : 15 to 20 mcg/mL * Trough level will be ordered as necessary - will closely monitor renal function d/t h/o CKD stage III and combination of vanc + zosyn, which has been attributed to development of SANTHOSH. Piperacillin/tazobactam * Continue 3.375 g IV extended infusion every 8 hours for CrCl greater than 20 mL/min Pharmacy will continue to follow and will adjust dose/frequency as necessary. Thank you.
--- NOTE | 2017-10-16 17:26 | Procedure Note ---
Procedure Note Procedure Date Oct 16, 2017. Procedure Description Procedure Name: Left radial arterial line Procedure time out: side/site verified, patient ID confirmed, correct procedure Consent obtained: verbal (Obtained by Dr. Bueno) Time of procedure: 14:30 Performed by: physician cut and print machine operator (Corwin Fuentes PA-C) Indications: other (Invasive blood pressure monitoring) Contraindications: none (INR 1.4) Description: Under clean technique, ultra sound was used to identify insertion site for arterial line. Initial puncture with a 20 ga needle with overlying catheter was into the artery per flash and confirmed with ultra sound. However, there was no blood flow. The catheter was removed and direct pressure was applied. Second attempt was made with an 18ga and was unsuccessful. Site was again visualized with ultrasound and insertion was moved approximately 4 cm proximal. Artery was visualized well with ultrasound and there was successful cannulization with an 18-gauge needle with overlying catheter. A good waveform was identified on the monitor. The catheter was secured with a an arterial StatLock and sterile dressing was applied. Complications: none Patient tolerated procedure: well Post-procedure vital signs: reviewed and stable
[2017-10-16] MEDS ORDERED: FUROSEMIDE 40 MG/4 ML VIAL ONE (18:09)
[2017-10-16] MEDS ORDERED: WTR IV STA (18:20)
[2017-10-16] MEDS ORDERED: POTASSIUM CHLR IV STA (18:20)
--- NOTE | 2017-10-16 19:41 | Critical Care Progress Note ---
Critical Care Progress Note Date of Service Oct 16, 2017. Attending Dr. Bueno Subjective The patient developed another episode where he become also unresponsive, repeat ABG showed elevated CO2 with pH of 7.27, the patient at that time blood pressure was on the low side and his heart rate remains in the range of 89 with wide-complex mostly paced. The patient was placed on the BiPAP briefly and then Ambu bag for at least 5 minutes. The patient is becoming more awake and following commands. A long was placed with my colleague Corwin Fuentes, appreciate his assistance. The blood pressure remains on the low side. The patient did have a central line placed in the right IJ by me which showed CVP of 15 and received a single dose of Lasix without significant urine output other than 350. The patient continued to have episodes of somnolence. No chest pain was reported. He denies any shortness of breath but he appears very lethargic. Objective His physical exam today revealed blood pressure of 76/35 and and BP is 107/59. Heart rate is 82 with O2 sat of 96%. On nasal cannula. S1-S2 regular rate and rhythm, distant breath sounds bilaterally, abdomen is soft but benign, he has edema in the periphery. The patient has ultrasound done at the bedside which revealed small amount of pleural effusion on the left. Echocardiogram was done also by me at the bedside which showed hyperdynamic right ventricle but noncompressible IVC. All his laboratory been reviewed including BUN/creatinine which are slightly elevated. Assessment & Plan 1. The patient showing signs of distributive shock rather than cardiogenic shock. I would expect his CVP to be much higher. 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 This representing ongoing septic shock. 2. Cardiomyopathy with ejection fraction of only 20%. 3. Acute hypercapnic respiratory failure, highly suspicious for change stoking breathing and central sleep apnea. 4. Gluteal abscess status post drainage. 5. Acute on chronic hypercapnic respiratory failure. Plan: 1. I will start the patient on dobutamine for contractility as well as Levophed for blood pressure control. 2. Continue with broad-spectrum antibiotic and add vancomycin. 3. CVP monitoring, initial CVP sliding scale did not result and good urine output, I will space out the sliding scale on a scale of 5/10/15/20. 4. Keep the patient on the BiPAP overnight. 5. The patient did have an episode of vomiting due to aerophagia secondary to BiPAP. 6. Continue with Coumadin. 7. Discussed with the in details, critical care time spent with the patient excluding procedure time was 60 minutes. Data Medications: Current Inpatient Medications Medications (Trade) Dose Ordered Sig/Deion Route Start Time Stop Time Status Last Admin Dose Admin Acetaminophen (Tylenol Tab) 650 mg Q4H PRN PO 10/13/17 12:30 11/12/17 12:29 Piperacillin Sod/ Tazobactam Sod 3.375 gm/Sodium Chloride 115 ml @ 28.75 mls/ hr Q8H IV 10/13/17 20:00 10/23/17 19:59 10/16/17 13:46 28.75 MLS/HR Miscellaneous Information (Consult) 1 ea UD PRN N/A 10/13/17 13:45 11/12/17 13:44 Amiodarone HCl (Cordarone Tab) 200 mg QAM PO 10/14/17 09:00 11/13/17 08:59 10/16/17 08:11 200 MG Ascorbic Acid (Vitamin C Tab) 500 mg QAM PO 10/14/17 09:00 11/13/17 08:59 10/16/17 08:14 500 MG Docusate Sodium (coLACE CAP) 100 mg PM PO 10/13/17 21:00 11/12/17 20:59 10/14/17 20:24 100 MG Famotidine (Pepcid Tab) 20 mg QAM PO 10/14/17 09:00 11/13/17 08:59 10/16/17 08:13 20 MG Ferrous Sulfate (Feosol Tab) 325 mg QAM PO 10/14/17 09:00 11/13/17 08:59 10/16/17 08:12 325 MG Levothyroxine Sodium (Synthroid Tab) 25 mcg DAILYBB PO 10/14/17 06:00 11/13/17 05:59 10/14/17 05:24 25 MCG Metoprolol Succinate (Toprol Xl Tab) 50 mg QAM PO 10/14/17 09:00 11/13/17 08:59 10/15/17 07:13 50 MG Multivitamins (Multivitamin Tab) 1 tab QAM PO 10/14/17 09:00 11/13/17 08:59 10/16/17 08:13 1 TAB Nitroglycerin (Nitrostat Tab) 0.4 mg Q5M PRN UT 10/13/17 13:45 11/12/17 13:44 Pravastatin Sodium (Pravachol Tab) 40 mg HS PO 10/13/17 21:00 11/12/17 20:59 10/14/17 20:24 40 MG Tamsulosin HCl (Flomax Cap) 0.4 mg HS PO 10/13/17 21:00 11/12/17 20:59 10/14/17 20:24 0.4 MG Potassium Chloride (Klor-Con M10) 10 meq BID PO 10/13/17 21:00 11/12/17 20:59 10/16/17 08:12 10 MEQ Enteral Nutritional Formula (Boost Plus Vanilla) 1 can BID PO 10/13/17 21:00 11/12/17 20:59 10/16/17 08:29 1 CAN Bumetanide (Bumex Tab) 2 mg DAILY PO 10/14/17 09:30 11/12/17 09:29 Future Hold 10/14/17 10:39 2 MG Finasteride (Proscar Tab) 5 mg QAM PO 10/14/17 12:15 11/13/17 12:14 10/16/17 08:13 5 MG Acetaminophen/ Hydrocodone Bitart ([place] 5/325 Tab) 1 tab Q4 PRN PO 10/15/17 10:15 10/29/17 10:14 Acetaminophen/ Hydrocodone Bitart ([place] 5/325 Tab) 2 tab Q4 PRN PO 10/15/17 10:15 10/29/17 10:14 Sodium Chloride 1,000 ml @ 50 mls/hr Q20H IV 10/15/17 17:15 11/14/17 17:14 10/16/17 16:36 50 MLS/HR Ipratropium [place] (Atrovent 0.02% 0.5MG/2.5ML Neb) 0.5 mg Q6R INH 10/15/17 21:00 11/14/17 20:59 10/16/17 13:58 0.5 MG Levalbuterol (Xopenex 1.25MG/ 0.5ML Neb) 1.25 mg Q6R INH 10/15/17 21:00 11/14/17 20:59 10/16/17 13:58 1.25 MG Norepinephrine Bitartrate 8 mg/ Dextrose 508 ml @ 0 mls/hr Q0M PRN IV 10/16/17 05:26 11/15/17 05:25 10/16/17 15:15 28.8 MLS/HR Heparin Sodium (Porcine) (Heparin Sq 5000 Unit/0.5ml) 5,000 unit Q12H SQ 10/16/17 06:00 11/15/17 05:59 10/16/17 18:13 5,000 UNIT Dobutamine HCl 250 ml @ 0 mls/hr Q0M PRN IV 10/16/17 12:15 11/15/17 12:14 Vancomycin HCl 1250 mg/Sodium Chloride 275 ml @ 125 mls/hr Q18H IV 10/17/17 12:00 10/23/17 16:59 Miscellaneous Information (Consult) 1 ea UD PRN N/A 10/16/17 16:30 11/15/17 16:29 Vancomycin HCl 1750 mg/Sodium Chloride 535 ml @ 200 mls/hr 1715 ONCE IV 10/16/17 17:15 10/16/17 19:55 10/16/17 18:10 200 MLS/HR I & O: 24-Hour Column 10/17/17 07:59 Intake Total 1152 ml Output Total 275 ml Balance 877 ml Vital Signs: Date Time Temp Pulse Resp B/P (MAP) Pulse Ox O2 Delivery O2 Flow Rate FiO2 10/16/17 14:48 90 95 40 10/16/17 14:41 91 21 77/60 (70) 97 10/16/17 14:31 89 22 90/53 (71) 100 10/16/17 14:26 90 22 89/51 (61) 85 10/16/17 14:11 87 24 85/48 (61) 100 10/16/17 14:05 90 99 40 10/16/17 14:04 88 14 99 BiPAP/CPAP 40 10/16/17 14:01 88 28 87/47 (52) 89 10/16/17 12:01 87 26 77/45 (53) 98 10/16/17 12:00 Nasal Cannula 3.0 10/16/17 11:51 84 17 70/52 (64) 77 10/16/17 11:11 85 24 87/33 (47) 90 10/16/17 11:01 87 24 79/48 (54) 10/16/17 11:01 87 24 79/48 (54) 10/16/17 10:51 85 22 66/47 (50) 93 10/16/17 10:31 85 19 56/36 (40) 93 10/16/17 10:25 88 19 63/42 (50) 95 10/16/17 10:16 84 19 73/42 (47) 90 10/16/17 09:46 85 22 80/48 (63) 92 10/16/17 09:33 86 25 82/47 (59) 10/16/17 09:31 85 23 76/47 (63) 10/16/17 09:21 83 20 90/46 (55) 100 10/16/17 09:11 86 25 86/45 (49) 90 10/16/17 09:01 84 20 89/56 (71) 10/16/17 08:51 88 19 84/52 (70) 87 10/16/17 08:41 86 23 94/46 (69) 98 10/16/17 08:21 88 21 79/63 (66) 97 10/16/17 08:11 90 23 83/45 (62) 93 10/16/17 08:00 88 19 82/47 (64) 10/16/17 08:00 Nasal Cannula 3.0 10/16/17 07:51 88 23 85/51 (66) 95 10/16/17 07:41 86 20 92/50 (64) 98 10/16/17 07:31 87 21 91/54 (70) 99 10/16/17 07:27 87 99 40 10/16/17 07:21 87 21 91/53 (71) 99 10/16/17 07:21 87 14 99 BiPAP/CPAP 40 10/16/17 07:11 87 20 92/53 (64) 98 10/16/17 07:01 87 21 90/53 (65) 99 10/16/17 07:00 86 34 100 10/16/17 06:39 83 91/50 (64) 10/16/17 06:22 93/51 (65) 10/16/17 06:00 36.9 83 23 73/42 (52) 96 10/16/17 04:07 36.9 83 25 77/43 (59) 96 10/16/17 04:00 BiPAP 50 10/16/17 03:07 83 18 96/36 (52) 100 10/16/17 02:10 83 96 50 10/16/17 02:10 83 28 96 BiPAP/CPAP 50 10/16/17 02:03 37.4 81 24 81/48 (50) 98 10/16/17 01:08 82 24 83/44 (53) 94 10/16/17 00:43 82 22 82/45 (57) 95 BiPAP 10/16/17 00:00 37.5 83 27 84/50 (64) 93 10/16/17 00:00 BiPAP 50 10/15/17 22:40 83 97 50 10/15/17 22:37 83 18 97 BiPAP/CPAP 50 10/15/17 22:21 83 24 90/48 (66) 91 10/15/17 21:38 83 20 104/57 (65) 92 10/15/17 21:20 83 95 10/15/17 20:00 36.3 81 22 91/61 (71) 96 10/15/17 20:00 Nasal Cannula 3.0 Laboratory Results: Last 24 Hours Test 10/15/17 21:09 10/15/17 21:35 10/16/17 00:10 10/16/17 04:39 Blood Gas Sample Site R Radial Bedside Blood Gas pH (LAB) 7.38 Bedside Blood Gas pCO2 (LAB) 53 mmHg Bedside Blood Gas pO2 (LAB) 83 mmHg Bedside Blood Gas HCO3 (LAB) 32 meq/L Bedside Blood Gas Total CO2 33 mEq/l Bedside Blood Gas Base Excess (LAB) 6.0 meq/L Bedside Blood Gas O2 Saturation 96.0 % Elio Test NA Oxygen Delivery Device SimpleMask Hemoglobin 9.7 g/dL 8.4 g/dL Hematocrit 33.6 % 29.9 % Bedside Glucose 119 mg/dl White Blood Count 8.22 K/uL Red Blood Count 3.51 M/uL Mean Corpuscular Volume 85.2 fL Mean Corpuscular Hemoglobin 23.9 pg Mean Corpuscular Hemoglobin Concent 28.1 g/dl RDW Standard Deviation 54.4 fL RDW Coefficient of Variation 17.6 % Platelet Count 140 K/uL Mean Platelet Volume 10.4 fL Prothrombin Time 14.3 SECONDS Prothromb Time International Ratio 1.4 Sodium Level 139 mmol/L Potassium Level 4.7 mmol/L Chloride Level 107 mmol/L Carbon Dioxide Level 32 mmol/L Anion Gap 0.0 mmol/L Blood Urea Nitrogen 28 mg/dl Creatinine 1.62 mg/dl Est Creatinine Clear Calc Drug Dose 42.1 ml/min Estimated GFR () 46.7 Estimated GFR (Non- 40.3 BUN/Creatinine Ratio 17.5 Random Glucose 89 mg/dl Calcium Level 8.1 mg/dl Phosphorus Level 4.7 mg/dl Magnesium Level 2.5 mg/dl Total Bilirubin 0.5 mg/dl Direct Bilirubin 0.3 mg/dl Aspartate Amino Transf (AST/SGOT) 20 U/L Alanine Aminotransferase (ALT/SGPT) 25 U/L Alkaline Phosphatase 76 U/L Total Creatine Kinase 29 U/L Creatine Kinase MB 1.1 ng/ml Creatine Kinase MB Ratio 3.8 Troponin I < 0.015 ng/ml Total Protein 6.0 gm/dl Albumin 2.1 gm/dl Test 10/16/17 05:02 10/16/17 14:28 10/16/17 16:28 Blood Gas Sample Site R Brachial R Radial Bedside Blood Gas pH (LAB) 7.32 7.28 Bedside Blood Gas pCO2 (LAB) 65 mmHg 68 mmHg Bedside Blood Gas pO2 (LAB) 114 mmHg 56 mmHg Bedside Blood Gas HCO3 (LAB) 34 meq/L 32 meq/L Bedside Blood Gas Total CO2 36 mEq/l 34 mEq/l Bedside Blood Gas Base Excess (LAB) 8.0 meq/L 5.0 meq/L Bedside Blood Gas O2 Saturation 98.0 % 84.0 % Elio Test NA Pass Oxygen Delivery Device BIPAP BIPAP Bedside Oxygen Rate (breaths/min) 16 14 Bedside FiO2 50 % 40 % Blood Gas IPAP 14 14 Bedside Glucose 162 mg/dl
--- NOTE | 2017-10-16 19:46 | Procedure Note ---
Procedure Note Procedure Date Oct 16, 2017. Procedure Description Procedure Name: Central line placement. Consent obtained: verbal, emergent consent implied Performed by: attending Indications: diagnostic, therapeutic Contraindications: none Description: The patient was placed in supine position, the procedure was done under strict sterile field, the skin was prepped with chlorhexidine on the right side, posterior approach right IJ, the skin was injected with 5 mL of 1% lidocaine, one attempt, dilator was used with no scalpel, the line was placed to 15 cm, secured with 2 sutures, covered with surgical dressing, chest x-ray showed the tip of the catheter at the SVC, no immediate complication, no arrhythmia noted while the line is being placed. No pneumothorax. No immediate complication. Tolerated the procedure well. Complications: none Patient tolerated procedure: well
[2017-10-16] MEDS: DOCUSATE SODIUM 100 MG CAP PO SCH (21:18)
[2017-10-16] MEDS: TAMSULOSIN HCL 0.4 MG CAP PO SCH (21:18)
[2017-10-16] MEDS: PRAVASTATIN SOD 40 MG TAB PO SCH (21:19)
[2017-10-16] MEDS ORDERED: ONDANSETRON INJ 2 MG/ML 2 ML VIAL ONE (23:32)
[2017-10-17] VITALS (24 sets, daily range): BP systolic 51–125; BP diastolic 6–72; PULSE 85–104; TEMP 36.8–37; O2SAT 80–98
[2017-10-17] MEDS: IPRATROPIUM BROMIDE NEB SOLN 0.02% 2.5 ML VIAL INH SCH ×4 (01:50→19:05)
[2017-10-17] MEDS: LEVALBUTEROL 1.25MG/0.5ML NEB INH SCH ×4 (01:51→19:05)
[2017-10-17] MEDS: NOREPINEPHRINE BIT INJ 8 MG in DEXTROSE 5% 500ML 500 ML IV PRN (02:38)
[2017-10-17] MEDS: PIPERACILL/TAZOBAC IV 3.375 GM in SODIUM CHLORIDE 0.9% 100ML 100 ML IV SCH ×2 (04:12→10:27)
[2017-10-17 05:29] LABS: HEMATOCRIT 29.1 % (42-52); HEMOGLOBIN 8.4 g/dL (14.0-18.0); MEAN CELL VOLUME 83.9 fL (80-100); MEAN CORPUSCULAR HEMOGLOBIN 24.2 pg (25-34); MEAN CORPUSCULAR HGB CONC 28.9 g/dl (32-36); MEAN PLATELET VOLUME 11.2 fL (7.4-10.4); PLATELET COUNT 182 K/uL (130-400); RED CELL DISTRIBUTION WIDTH CV 17.7 % (11.5-14.5); RED CELL DISTRIBUTION WIDTH SD 54.1 fL (36.4-46.3); WHITE BLOOD COUNT 8.61 K/uL (4.8-10.8)
[2017-10-17 05:33] LABS: INR 1.4 (0.9-1.1)
[2017-10-17 05:50] LABS: ALBUMIN 2.1 gm/dl (3.4-5.0); CALCIUM 7.7 mg/dl (8.5-10.1); CREATININE 1.53 mg/dl (0.60-1.40); POTASSIUM 4.1 mmol/L (3.5-5.1)
[2017-10-17] MEDS: HEPARIN SOD 5000 UNIT/0.5 ML CARP SQ SCH (06:17)
[2017-10-17] MEDS: LEVOTHYROXINE 25 MCG TAB PO SCH (06:17)
[2017-10-17 06:20] LABS: PHOSPHORUS 3.1 mg/dl (2.5-4.9); TOTAL PROTEIN 6.1 gm/dl (6.4-8.2)
--- NOTE | 2017-10-17 07:20 | Surgery Progress Note ---
Surgery Progress Note Date of Service Oct 17, 2017. Subjective Cuff BP improved , still with some pressor support more responsive this am, but confused ,on nasal canula KUB- likely mild ileus, minimal dilated bowel Objective Vital Signs: Date Time Temp Pulse Resp B/P (MAP) Pulse Ox O2 Delivery O2 Flow Rate FiO2 10/17/17 06:31 97 20 108/61 (78) 95 76/39 10/17/17 06:01 95 10 107/59 (52) 95 70/34 10/17/17 05:31 96 18 105/58 (48) 94 63/36 10/17/17 05:10 96 92 30 10/17/17 05:01 96 24 97/50 (39) 80 51/28 10/17/17 04:31 94 21 101/66 (84) 94 60/29 10/17/17 04:01 36.8 94 20 112/64 (53) 98 70/35 10/17/17 04:00 Nasal Cannula 5.0 10/17/17 03:31 93 18 109/72 (90) 97 67/32 10/17/17 03:01 98 20 110/60 (53) 96 72/37 10/17/17 02:31 98 24 106/51 (75) 90 66/33 10/17/17 02:30 98 18 (52) 92 71/36 10/17/17 02:01 99 21 113/66 (45) 91 57/33 10/17/17 02:00 104 18 (46) 90 85/6 10/17/17 01:51 95 24 92 BiPAP/CPAP 30 10/17/17 01:51 95 92 30 10/17/17 01:31 93 24 109/57 (50) 93 67/35 10/17/17 00:31 95 23 117/61 (56) 95 72/35 10/17/17 00:21 92 30 103/48 (63) 94 71/39 10/17/17 00:11 86 24 110/58 (55) 97 73/35 10/17/17 00:01 37.0 85 27 125/59 (80) 97 74/40 10/16/17 23:59 Nasal Cannula 5.0 10/16/17 23:51 98 21 122/53 (74) 96 69/36 10/16/17 23:41 87 26 115/55 (90) 97 76/41 4/19/18 23:31 223 34 105/57 (81) 88 59/33 4/19/18 23:21 99 27 119/62 (92) 96 77/39 4/19/18 23:11 105 96 30 4/19/18 23:11 92 19 95/64 (69) 90 76/39 4/19/18 23:01 90 21 105/64 (88) 131/34 4/19/18 22:21 89 23 112/70 (75) 95 73/37 4/19/18 22:11 91 35 113/52 (46) 90 59/31 4/19/18 22:01 93 22 107/57 (80) 93 75/38 4/19/18 21:31 103 23 110/64 (61) 96 81/43 4/19/18 20:51 94 14 110/58 (71) 98 75/38 4/19/18 20:01 36.9 104 19 113/63 (52) 92 70/34 4/19/18 20:00 BiPAP 40 4/19/18 19:21 94 21 107/61 (78) 100 75/37 4/19/18 19:12 95 23 105/61 (58) 100 79/35 4/19/18 19:08 87 100 40 4/19/18 19:07 87 20 100 BiPAP/CPAP 40 4/19/18 19:01 89 16 106/63 (73) 100 84/48 4/19/18 18:51 100 16 115/66 (72) 99 82/42 4/19/18 18:32 98 17 91/67 (81) 93 99/43 4/19/18 18:21 99 22 105/51 (81) 96 82/42 4/19/18 18:11 90 23 103/69 (61) 98 81/43 4/19/18 18:01 88 23 99/49 (54) 69/40 4/19/18 17:51 91 22 98/52 (55) 89 82/41 4/19/18 17:21 118 23 101/54 (65) 95 74/40 4/19/18 17:11 91 20 93/54 (62) 90 77/43 4/19/18 17:01 86 22 101/57 (57) 96 73/42 4/19/18 17:00 88 24 (59) 96 74/45 4/18 16:31 90 23 100/73 (76) 80/46 4/18 16:21 90 17 91/50 (68) 82/47 4/18 16:11 93 20 100/54 (56) 90 77/38 18 16:01 91 19 96/53 (70) 92 87/55 10/16/17 16:00 Nasal Cannula 5.0 18 15:51 77 22 93/49 (66) 70/36 418 15:41 98 22 104/63 (65) 90 84/48 18 15:31 88 17 90/61 (62) 92 82/43 18 15:25 86 15 110/62 (86) 90 85/42 18 15:21 88 20 109/64 (78) 85 74/36 18 15:11 89 21 97/62 (74) 94 77/43 18 15:07 90 21 88/49 (59) 97 64/37 10/16/17 15:01 36.8 90 16 90/49 (65) 94 103/47 18 14:48 90 95 40 18 14:41 91 21 77/60 (70) 97 18 14:31 89 22 90/53 (71) 100 18 14:26 90 22 89/51 (61) 85 18 14:11 87 24 85/48 (61) 100 18 14:05 90 99 40 18 14:04 88 14 99 BiPAP/CPAP 40 10/16/17 14:01 88 28 87/47 (52) 89 18 12:01 87 26 77/45 (53) 98 18 12:00 Nasal Cannula 3.0 10/16/17 11:51 84 17 70/52 (64) 77 18 11:11 85 24 87/33 (47) 90 18 11:01 87 24 79/48 (54) 10/16/17 11:01 87 24 79/48 (54) 18 10:51 85 22 66/47 (50) 93 4/19/18 10:31 85 19 56/36 (40) 93 10/16/17 10:25 88 19 63/42 (50) 95 10/16/17 10:16 84 19 73/42 (47) 90 10/16/17 09:46 85 22 80/48 (63) 92 10/16/17 09:33 86 25 82/47 (59) 10/16/17 09:31 85 23 76/47 (63) 10/16/17 09:21 83 20 90/46 (55) 100 10/16/17 09:11 86 25 86/45 (49) 90 10/16/17 09:01 84 20 89/56 (71) 10/16/17 08:51 88 19 84/52 (70) 87 10/16/17 08:41 86 23 94/46 (69) 98 10/16/17 08:21 88 21 79/63 (66) 97 10/16/17 08:11 90 23 83/45 (62) 93 10/16/17 08:00 88 19 82/47 (64) 10/16/17 08:00 Nasal Cannula 3.0 10/16/17 07:51 88 23 85/51 (66) 95 10/16/17 07:41 86 20 92/50 (64) 98 10/16/17 07:31 87 21 91/54 (70) 99 10/16/17 07:27 87 99 40 10/16/17 07:21 87 21 91/53 (71) 99 10/16/17 07:21 87 14 99 BiPAP/CPAP 40 General Appearance: no apparent distress Respiratory/Chest: + respiratory distress Abdomen: + distended (some bs- diminished) Incision(s): drainage (expected- no acute bleeding) Laboratory Results: Results Past 24 Hours Test 10/16/17 14:28 10/16/17 16:28 10/16/17 21:31 10/17/17 02:08 Range/Units Blood Gas Sample Site R Radial Bedside Blood Gas pH (LAB) 7.28 7.35-7.45 Bedside Blood Gas pCO2 (LAB) 68 35-46 mmHg Bedside Blood Gas pO2 (LAB) 56 80-95 mmHg Bedside Blood Gas HCO3 (LAB) 32 19-24 meq/L Bedside Blood Gas Total CO2 34 24-31 mEq/l Bedside Blood Gas Base Excess (LAB) 5.0 -9-1.8 meq/L Bedside Blood Gas O2 Saturation 84.0 90-95 % Elio Test Pass Oxygen Delivery Device BIPAP Bedside Oxygen Rate (breaths/min) 14 Bedside FiO2 40 % Blood Gas IPAP 14 Bedside Glucose 162 70-99 mg/dl Bedside Glucose (other) 159 131 70-99 mg/dl Test 10/17/17 04:45 10/17/17 05:08 Range/Units White Blood Count 8.61 4.8-10.8 K/uL Red Blood Count 3.47 4.7-6.1 M/uL Hemoglobin 8.4 14.0-18.0 g/dL Hematocrit 29.1 42-52 % Mean Corpuscular Volume 83.9 80-100 fL Mean Corpuscular Hemoglobin 24.2 25-34 pg Mean Corpuscular Hemoglobin Concent 28.9 32-36 g/dl RDW Standard Deviation 54.1 36.4-46.3 fL RDW Coefficient of Variation 17.7 11.5-14.5 % Platelet Count 182 130-400 K/uL Mean Platelet Volume 11.2 7.4-10.4 fL Prothrombin Time 14.2 9.0-12.0 SECONDS Prothromb Time International Ratio 1.4 0.9-1.1 Sodium Level 134 136-145 mmol/L Potassium Level 4.1 3.5-5.1 mmol/L Chloride Level 102 98-107 mmol/L Carbon Dioxide Level 30 21-32 mmol/L Anion Gap 2.0 3-11 mmol/L Blood Urea Nitrogen 25 7-18 mg/dl Creatinine 1.53 0.60-1.40 mg/dl Est Creatinine Clear Calc Drug Dose 46.3 ml/min Estimated GFR () 50.1 Estimated GFR (Non- 43.2 BUN/Creatinine Ratio 16.3 10-20 Random Glucose 117 70-99 mg/dl Calcium Level 7.7 8.5-10.1 mg/dl Phosphorus Level 3.1 2.5-4.9 mg/dl Magnesium Level 2.2 1.8-2.4 mg/dl Total Bilirubin 0.5 0.2-1 mg/dl Direct Bilirubin 0.2 0-0.2 mg/dl Aspartate Amino Transf (AST/SGOT) 17 15-37 U/L Alanine Aminotransferase (ALT/SGPT) 21 12-78 U/L Alkaline Phosphatase 79 45-117 U/L Total Protein 6.1 6.4-8.2 gm/dl Albumin 2.1 3.4-5.0 gm/dl Blood Gas Sample Site Art Line Bedside Blood Gas pH (LAB) 7.35 7.35-7.45 Bedside Blood Gas pCO2 (LAB) 55 35-46 mmHg Bedside Blood Gas pO2 (LAB) 76 80-95 mmHg Bedside Blood Gas HCO3 (LAB) 30 19-24 meq/L Bedside Blood Gas Total CO2 32 24-31 mEq/l Bedside Blood Gas Base Excess (LAB) 5.0 -9-1.8 meq/L Bedside Blood Gas O2 Saturation 94.0 90-95 % Elio Test NA Oxygen Delivery Device Cannula Microbiology Results 10/16/17 Blood Culture, Received Pending 10/16/17 Blood Culture, Received Pending Assessment & Plan 10/17/17- Delerium, likely metabolic encephalopathy- not rec much pain medication which would make things worse. Cult growing sensative proteus- did not have widespread cellulitis. Cont IV atbx. Has central line- may consider low volume Tpn as albumin very low. Discussed guarded condition with his . 10/16/17- s/p extensive incision/ debridement of severe infection and necrosis of sacral/ gluteal area- now open w/ packing. For continued care by wound clinic team- likely wound vac. At the present time- in need of respiratory and cardiac support. Transfusion may help- will defer to medical team. 10/15/17- pending coags- for Incision/ debridement gluteal ulcer/ abscess. No acute changes 10/14/17- pt is for incision / debridement in OR tomorrow cont diet, npo after midnight, anesthesia consulted lovenox/ or Heparin per medical team- no high dose lovenox tonight 10/16/17- s/p extensive incision/ debridement of severe infection and necrosis of sacral/ gluteal area- now open w/ packing. For continued care by wound clinic team- likely wound vac. At the present time- in need of respiratory and cardiac support. Transfusion may help- will defer to medical team. 10/15/17- pending coags- for Incision/ debridement gluteal ulcer/ abscess. No acute changes 10/14/17- pt is for incision / debridement in OR tomorrow cont diet, npo after midnight, anesthesia consulted lovenox/ or Heparin per medical team- no high dose lovenox tonight
--- NOTE | 2017-10-17 07:20 | DIAGNOSTIC IMAGING REPORT ---
KUB HISTORY: Nausea. Vomiting. COMPARISON: KUB 07/30/2017. FINDINGS: The bowel gas pattern is unremarkable. There are no dilated loops of small bowel to suggest an obstruction. No renal calculi. No ureteral calculi. No pneumoperitoneum or pneumatosis. There are postoperative changes and a cardiac pacemaker/defibrillator. Multiple large gallstones measuring up to 2.6 cm. Vascular calcifications are noted. Of note, the left lateral abdomen was not included on this study. IMPRESSION: 1. No evidence for bowel obstruction. 2. Cholelithiasis. Electronically signed by: Hugh Freeman M.D. 10/17/2017 7:18 AM Dictated Date/Time: 10/17/2017 7:17 AM
[2017-10-17] MEDS: SODIUM CHLORIDE 0.9% 1000ML 1,000 ML IV SCH (08:32)
[2017-10-17] MEDS: BOOST PLUS VANILLA PO SCH (08:33)
[2017-10-17] MEDS: FERROUS SULFATE 325 MG TAB PO SCH (08:33)
[2017-10-17] MEDS: POTASSIUM CHLORIDE 10 MEQ TABCR PO SCH (08:33)
[2017-10-17] MEDS: AMIODARONE 200 MG TAB PO SCH (08:33)
[2017-10-17] MEDS: ASCORBIC ACID 500 MG TAB PO SCH (08:34)
[2017-10-17] MEDS: MULTIVITAMIN TAB PO SCH (08:34)
[2017-10-17] MEDS: FINASTERIDE 5 MG TAB PO SCH (08:34)
[2017-10-17] MEDS: METOPROLOL SUCC 50MG EXT REL TAB PO SCH (08:34)
[2017-10-17] MEDS: FAMOTIDINE 20 MG TAB PO SCH (08:34)
[2017-10-17] MEDS ORDERED: VANCOMYCIN IV 1,250 MG in SODIUM CHLORIDE 0.9% 250ML 250 ML IV SCH (12:00)
--- NOTE | 2017-10-17 13:47 | Hospitalist Progress Note ---
Hospitalist Progress Note Date of Service Oct 17, 2017. (Judie Rivera .[place]) Subjective Pt evaluation today including: conversation w/ patient, physical exam, chart review, lab review, review of inpatient medication list Voiding: no voiding problems Mr. Garcia is doing very poorly. His blood pressure has not been responding well to his presser support. I did speak with the patient and family about code status and Mr. Garcia is adamant that he does not want to be resuscitated and his and sister in law are supportive of this decision. ROS Constitutional: no chills, aches, sweats or fever Respiratory: productive cough Cardiac: no chest pain, palpitations, edema, orthopnea or lightheadedness GI: nausea : no dysuria or hesitancy Extremities: no joint pain or weakness Skin: no rash All other systems reviewed and negative (Judie Rivera .[place]) Medications Medications Administered Medications (Trade) Dose Ordered Sig/Deion Route Start Time Stop Time Status Last Admin Dose Admin Vancomycin HCl 1250 mg/Sodium Chloride 275 ml @ 125 mls/hr Q18H IV 10/14/17 08:00 10/15/17 12:00 DC 10/15/17 01:44 125 MLS/HR Piperacillin Sod/ Tazobactam Sod 3.375 gm/Sodium Chloride 115 ml @ 28.75 mls/ hr Q8H IV 10/13/17 20:00 10/23/17 19:59 10/17/17 10:27 28.75 MLS/HR Amiodarone HCl (Cordarone Tab) 200 mg QAM PO 10/14/17 09:00 11/13/17 08:59 10/16/17 08:11 200 MG Ascorbic Acid (Vitamin C Tab) 500 mg QAM PO 10/14/17 09:00 11/13/17 08:59 10/16/17 08:14 500 MG Docusate Sodium (coLACE CAP) 100 mg PM PO 10/13/17 21:00 11/12/17 20:59 10/16/17 21:18 100 MG Famotidine (Pepcid Tab) 20 mg QAM PO 10/14/17 09:00 11/13/17 08:59 10/16/17 08:13 20 MG Ferrous Sulfate (Feosol Tab) 325 mg QAM PO 10/14/17 09:00 5/17/18 08:59 10/16/17 08:12 325 MG Levothyroxine Sodium (Synthroid Tab) 25 mcg DAILYBB PO 10/14/17 06:00 11/13/17 05:59 10/17/17 06:17 25 MCG Metoprolol Succinate (Toprol Xl Tab) 50 mg QAM PO 10/14/17 09:00 11/13/17 08:59 10/15/17 07:13 50 MG Multivitamins (Multivitamin Tab) 1 tab QAM PO 10/14/17 09:00 11/13/17 08:59 10/16/17 08:13 1 TAB Pravastatin Sodium (Pravachol Tab) 40 mg HS PO 10/13/17 21:00 11/12/17 20:59 10/16/17 21:19 40 MG Tamsulosin HCl (Flomax Cap) 0.4 mg HS PO 10/13/17 21:00 11/12/17 20:59 10/16/17 21:18 0.4 MG Potassium Chloride (Klor-Con M10) 10 meq BID PO 10/13/17 21:00 11/12/17 20:59 10/16/17 21:37 10 MEQ Vancomycin HCl 2250 mg/Sodium Chloride 545 ml @ 200 mls/hr 1430 ONCE IV 10/13/17 14:30 10/13/17 17:13 DC 10/13/17 15:33 200 MLS/HR Piperacillin Sod/ Tazobactam Sod 3.375 gm/Sodium Chloride 115 ml @ 230 mls/hr NOW ONCE IV 10/13/17 14:15 10/13/17 14:44 DC 10/13/17 15:32 230 MLS/HR Enteral Nutritional Formula (Boost Plus Vanilla) 1 can BID PO 10/13/17 21:00 11/12/17 20:59 10/16/17 21:17 1 CAN Sodium Chloride 250 ml @ 999 mls/hr Q16M ONCE IV 10/13/17 20:15 10/13/17 20:30 DC 10/13/17 20:45 999 MLS/HR Phytonadione (Mephyton Tab) 5 mg NOW STAT PO 10/14/17 08:52 10/14/17 08:56 DC 10/14/17 10:44 5 MG Bumetanide (Bumex Tab) 2 mg DAILY PO 10/14/17 09:30 11/12/17 09:29 Future Hold 10/14/17 10:39 2 MG Finasteride (Proscar Tab) 5 mg QAM PO 10/14/17 12:15 11/13/17 12:14 10/16/17 08:13 5 MG Phytonadione 5 mg/ Sodium Chloride 50.5 ml @ 101 mls/hr NOW ONCE IV 10/14/17 15:30 10/14/17 15:59 DC 10/14/17 16:03 101 MLS/HR Bupivacaine HCl (Marcaine 0.5% MPF Inj) 30 ml STK-MED ONCE .ROUTE 10/15/17 07:57 10/15/17 07:58 DC 10/15/17 09:30 7 ML Ondansetron HCl (Zofran Inj) 4 mg ONE PRN IV 10/15/17 09:30 10/15/17 14:30 DC 10/15/17 14:00 4 MG Miscellaneous (Floseal Hemostatic Matrix 10ml) 10 ml ONE ONCE TOP 10/15/17 09:47 10/15/17 09:48 DC 10/15/17 09:47 10 ML Sodium Chloride 1,000 ml @ 75 mls/hr [id number] IV 10/15/17 17:15 11/14/17 17:14 10/17/17 08:32 75 MLS/HR Ipratropium Hammond (Atrovent 0.02% 0.5MG/2.5ML Neb) 0.5 mg Q6R INH 10/15/17 21:00 11/14/17 20:59 10/17/17 07:18 0.5 MG Levalbuterol (Xopenex 1.25MG/ 0.5ML Neb) 1.25 mg Q6R INH 10/15/17 21:00 11/14/17 20:59 10/17/17 07:18 1.25 MG Acetaminophen 100 ml @ 400 mls/hr NOW STAT IV 10/16/17 04:11 10/16/17 04:25 DC 10/16/17 04:16 400 MLS/HR Norepinephrine Bitartrate 8 mg/ Dextrose 508 ml @ 0 mls/hr Q0M PRN IV 10/16/17 05:26 11/15/17 05:25 10/17/17 02:38 28.6 MLS/HR Heparin Sodium (Porcine) (Heparin Sq 5000 Unit/0.5ml) 5,000 unit Q12H SQ 10/16/17 06:00 11/15/17 05:59 10/17/17 06:17 5,000 UNIT Warfarin Sodium (Coumadin Tab) 3 mg TODAY@1600 ONCE PO 10/16/17 16:00 10/16/17 16:01 DC 10/16/17 16:38 3 MG Dobutamine HCl (DOBUTamine / D5W) 500 mg STK-MED ONCE .ROUTE 10/16/17 10:39 10/16/17 10:40 DC 10/16/17 10:45 500 MG Dobutamine HCl 250 ml @ 0 mls/hr Q0M PRN IV 10/16/17 12:15 11/15/17 12:14 10/17/17 02:37 14.4 MLS/HR Sodium Chloride 250 ml @ 999 mls/hr Q16M ONCE IV 10/16/17 15:15 10/16/17 15:30 DC 10/16/17 16:37 999 MLS/HR Vancomycin HCl 1250 mg/Sodium Chloride 275 ml @ 125 mls/hr Q18H IV 10/17/17 12:00 10/23/17 16:59 10/17/17 10:27 125 MLS/HR Vancomycin HCl 1750 mg/Sodium Chloride 535 ml @ 200 mls/hr 1715 ONCE IV 10/16/17 17:15 10/16/17 19:55 DC 10/16/17 18:10 200 MLS/HR Furosemide (Lasix Inj) 40 mg STK-MED ONCE .ROUTE 10/16/17 18:09 10/16/17 18:10 DC 10/16/17 18:12 40 MG Ondansetron HCl (Zofran Inj) 4 mg STK-MED ONCE .ROUTE 10/16/17 23:32 10/16/17 23:33 DC 10/16/17 23:35 4 MG (Judie Rivera, [employer]) Objective Vital Signs Date Time Temp Pulse Resp B/P (MAP) Pulse Ox O2 Delivery O2 Flow Rate FiO2 10/17/17 11:00 98 20 113/60 (77) 92 Nasal Cannula 4.0 420/18 10:00 95 22 86/52 (63) 92 Nasal Cannula 5.0 20/18 08:00 91 Nasal Cannula 5.0 4/18 07:20 95 24 96 Nasal Cannula 4.5 20/18 06:31 97 20 108/61 (78) 95 76/39 4/20/18 06:01 95 10 107/59 (52) 95 70/34 420/18 05:31 96 18 105/58 (48) 94 63/36 420/18 05:10 96 92 30 420/18 05:01 96 24 97/50 (39) 80 51/28 420/18 04:31 94 21 101/66 (84) 94 60/29 18 04:01 36.8 94 20 112/64 (53) 98 70/35 420/18 04:00 Nasal Cannula 5.0 18 03:31 93 18 109/72 (90) 97 67/32 20/18 03:01 98 20 110/60 (53) 96 72/37 420/18 02:31 98 24 106/51 (75) 90 66/33 4/20/18 02:30 98 18 (52) 92 71/36 420/18 02:01 99 21 113/66 (45) 91 57/33 420/18 02:00 104 18 (46) 90 85/6 20/18 01:51 95 24 92 BiPAP/CPAP 30 18 01:51 95 92 30 20/18 01:31 93 24 109/57 (50) 93 67/35 4/20/18 00:31 95 23 117/61 (56) 95 72/35 4/20/18 00:21 92 30 103/48 (63) 94 71/39 4/20/18 00:11 86 24 110/58 (55) 97 73/35 4/20/18 00:01 37.0 85 27 125/59 (80) 97 74/40 4/19/18 23:59 Nasal Cannula 5.0 19/18 23:51 98 21 122/53 (74) 96 69/36 4/19/18 23:41 87 26 115/55 (90) 97 76/41 4/19/18 23:31 223 34 105/57 (81) 88 59/33 4/19/18 23:21 99 27 119/62 (92) 96 77/39 4/19/18 23:11 105 96 30 4/19/18 23:11 92 19 95/64 (69) 90 76/39 4/19/18 23:01 90 21 105/64 (88) 131/34 4/19/18 22:21 89 23 112/70 (75) 95 73/37 4/19/18 22:11 91 35 113/52 (46) 90 59/31 4/19/18 22:01 93 22 107/57 (80) 93 75/38 4/19/18 21:31 103 23 110/64 (61) 96 81/43 4/19/18 20:51 94 14 110/58 (71) 98 75/38 4/19/18 20:01 36.9 104 19 113/63 (52) 92 70/34 4/19/18 20:00 BiPAP 40 4/19/18 19:21 94 21 107/61 (78) 100 75/37 4/19/18 19:12 95 23 105/61 (58) 100 79/35 4/19/18 19:08 87 100 40 4/19/18 19:07 87 20 100 BiPAP/CPAP 40 4/19/18 19:01 89 16 106/63 (73) 100 84/48 4/19/18 18:51 100 16 115/66 (72) 99 82/42 4/19/18 18:32 98 17 91/67 (81) 93 99/43 4/19/18 18:21 99 22 105/51 (81) 96 82/42 4/19/18 18:11 90 23 103/69 (61) 98 81/43 4/19/18 18:01 88 23 99/49 (54) 69/40 4/19/18 17:51 91 22 98/52 (55) 89 82/41 4/19/18 17:21 118 23 101/54 (65) 95 74/40 4/19/18 17:11 91 20 93/54 (62) 90 77/43 4/19/18 17:01 86 22 101/57 (57) 96 73/42 4/19/18 17:00 88 24 (59) 96 74/45 10/16/17 16:31 90 23 100/73 (76) 80/46 10/16/17 16:21 90 17 91/50 (68) 82/47 18 16:11 93 20 100/54 (56) 90 77/38 10/16/17 16:01 91 19 96/53 (70) 92 87/55 10/16/17 16:00 Nasal Cannula 5.0 10/16/17 15:51 77 22 93/49 (66) 70/36 18 15:41 98 22 104/63 (65) 90 84/48 10/16/17 15:31 88 17 90/61 (62) 92 82/43 10/16/17 15:25 86 15 110/62 (86) 90 85/42 10/16/17 15:21 88 20 109/64 (78) 85 74/36 10/16/17 15:11 89 21 97/62 (74) 94 77/43 10/16/17 15:07 90 21 88/49 (59) 97 64/37 10/16/17 15:01 36.8 90 16 90/49 (65) 94 103/47 10/16/17 14:48 90 95 40 10/16/17 14:41 91 21 77/60 (70) 97 10/16/17 14:31 89 22 90/53 (71) 100 10/16/17 14:26 90 22 89/51 (61) 85 10/16/17 14:11 87 24 85/48 (61) 100 10/16/17 14:05 90 99 40 10/16/17 14:04 88 14 99 BiPAP/CPAP 40 10/16/17 14:01 88 28 87/47 (52) 89 (Judie Rivera, [place]) Physical Exam Notes: General: no distress Eyes: normal inspection, PERLL Respiratory: chest non tender, coarse bilateral bases, labored breathing Cardiac: regular rate and rhythm, no rub or gallop, systolic murmur GI/: active bowel sounds, no abd pain or tenderness, soft, non distended Extremities: normal range of motion, normal strength, non tender Neuro/Psych: alert and oriented x 3, sad mood Skin: pale, dusky lips (Judie Rivera, [place]) Laboratory Results Last 24 Hours Test 10/16/17 14:28 10/16/17 16:28 10/16/17 21:31 10/17/17 02:08 Blood Gas Sample Site R Radial Bedside Blood Gas pH (LAB) 7.28 Bedside Blood Gas pCO2 (LAB) 68 mmHg Bedside Blood Gas pO2 (LAB) 56 mmHg Bedside Blood Gas HCO3 (LAB) 32 meq/L Bedside Blood Gas Total CO2 34 mEq/l Bedside Blood Gas Base Excess (LAB) 5.0 meq/L Bedside Blood Gas O2 Saturation 84.0 % Elio Test Pass Oxygen Delivery Device BIPAP Bedside Oxygen Rate (breaths/min) 14 Bedside FiO2 40 % Blood Gas IPAP 14 Bedside Glucose 162 mg/dl Bedside Glucose (other) 159 mg/dl 131 mg/dl Test 10/17/17 04:45 10/17/17 05:08 White Blood Count 8.61 K/uL Red Blood Count 3.47 M/uL Hemoglobin 8.4 g/dL Hematocrit 29.1 % Mean Corpuscular Volume 83.9 fL Mean Corpuscular Hemoglobin 24.2 pg Mean Corpuscular Hemoglobin Concent 28.9 g/dl RDW Standard Deviation 54.1 fL RDW Coefficient of Variation 17.7 % Platelet Count 182 K/uL Mean Platelet Volume 11.2 fL Prothrombin Time 14.2 SECONDS Prothromb Time International Ratio 1.4 Sodium Level 134 mmol/L Potassium Level 4.1 mmol/L Chloride Level 102 mmol/L Carbon Dioxide Level 30 mmol/L Anion Gap 2.0 mmol/L Blood Urea Nitrogen 25 mg/dl Creatinine 1.53 mg/dl Est Creatinine Clear Calc Drug Dose 46.3 ml/min Estimated GFR () 50.1 Estimated GFR (Non- 43.2 BUN/Creatinine Ratio 16.3 Random Glucose 117 mg/dl Calcium Level 7.7 mg/dl Phosphorus Level 3.1 mg/dl Magnesium Level 2.2 mg/dl Total Bilirubin 0.5 mg/dl Direct Bilirubin 0.2 mg/dl Aspartate Amino Transf (AST/SGOT) 17 U/L Alanine Aminotransferase (ALT/SGPT) 21 U/L Alkaline Phosphatase 79 U/L Total Protein 6.1 gm/dl Albumin 2.1 gm/dl Blood Gas Sample Site Art Line Bedside Blood Gas pH (LAB) 7.35 Bedside Blood Gas pCO2 (LAB) 55 mmHg Bedside Blood Gas pO2 (LAB) 76 mmHg Bedside Blood Gas HCO3 (LAB) 30 meq/L Bedside Blood Gas Total CO2 32 mEq/l Bedside Blood Gas Base Excess (LAB) 5.0 meq/L Bedside Blood Gas O2 Saturation 94.0 % Elio Test NA Oxygen Delivery Device Cannula (Judie Rivera CRNP) Assessment and Plan Mr. Garcia is a 77 year old man here for surgical intervention of a sacral decubitus Ulcer At this point, he and his family have decided on comfort measures only and he will be transferred out of the ICU. Previous to this decision, his care plan was as below: Septic shock, Sacral Decubitus Ulcer post op 10/15 - continue ICU monitoring - patient requiring levophed and dobutamine for pressure support with poor response - per discussion with family will make patient DNR - palliative consulted by crutch maker - patient's prognosis poor given his current status and significant comorbidities - Consulted general surgery - Wound culture grew out proteus, given Zosyn; vanc initially discontinued as culture did not grow MRSA and MRSA swab negative, but restarted given patient's status and lack of response to Zosyn alone - ID consulted - BC ngtd, CAD S/P CABG; AAA/Aortic Dissection; S/P ICD/Pacer; Chronic Systolic CHF; Atrial Fibrillation: - Patient takes 2m Bumex bid at home - on hold - patient being diuresed intermittently with IV lasix - continued home amiodarone, metoprolol - Coumadin was held for procedure Friday - reversed with vitamin K x 3 doses , resumed Coumadin following procedure - INR 1.4 CKD III - patient's creatinine 1.5, baseline around 1-1.3 - trending prp, nya and Bumex held for low bp - avoid nephrotoxins where possible Hypothyroid - continued home levothyroxine BPH - continued home tamsulosin (Judie Rivera CRNP) STUD[employer]OTTER Physician Supervision Note: I interviewed and examined the patient. Discussed with Judie Rivera NP and agree with findings and plan as documented in the note. Any exceptions or clarifications are listed here: None Patient had a decline all day has been relying on intravenous pressor support having hypercarbic respiratory failure as the afternoon progressed palliative care discussed with the patient his wishes he stated that he was tired of being ill and requested to proceed towards comfort care this was in the presence of his family we are proceeding that manner transfer him to medical floor with disabling his defibrillator continuing along with morphine and Ativan scopolamine and atropine oxygen. His blood pressure is low at best it is expected to go lower when the pressors were stopped his heart is bradycardic despite his pacemaker and is eminent Documented By: Vijay Stack (Vijay Stack M.D.)
[2017-10-17] MEDS ORDERED: MoRPHine SULFATE 4 MG/ML 1 ML CARP\\VIAL IV ONE (14:00)
[2017-10-17] MEDS ORDERED: MoRPHine SULFATE 4 MG/ML 1 ML CARP\\VIAL IV PRN (14:00)
[2017-10-17] MEDS ORDERED: ATROPINE SULFATE 1% OP SOLN 5 ML BTL PO PRN (14:00)
[2017-10-17] MEDS ORDERED: MoRPHine SULFATE 2 MG/ML CARP IV PRN (14:00)
[2017-10-17] MEDS ORDERED: LORAZEPAM 2 MG/ML 1 ML VIAL IV PRN ×3 (14:00)
[2017-10-17] MEDS ORDERED: SCOPOLAMINE 1.5 MG TDSY TD SCH (14:15)
--- NOTE | 2017-10-17 15:10 | Infectious Disease Progress Nt ---
Progress Note Date of Service Oct 17, 2017. Subjective Pt evaluation today including: conversation w/ patient, physical exam, chart review, lab review, review of studies, conversation w/ [employer] consultant, review of inpatient medication list Events reviewed. Patient remains hypotensive, now on comfort measures only. Antibiotics have been discontinued. All Other Systems: Reviewed and Negative Medications Current Inpatient Medications Medications (Trade) Dose Ordered Sig/Deion Route Start Time Stop Time Status Last Admin Dose Admin Nitroglycerin (Nitrostat Tab) 0.4 mg Q5M PRN [place] 10/13/17 13:45 11/12/17 13:44 Ipratropium [place] (Atrovent 0.02% 0.5MG/2.5ML Neb) 0.5 mg Q6R INH 10/15/17 21:00 11/14/17 20:59 10/17/17 07:18 0.5 MG Levalbuterol (Xopenex 1.25MG/ 0.5ML Neb) 1.25 mg Q6R INH 10/15/17 21:00 11/14/17 20:59 10/17/17 07:18 1.25 MG Norepinephrine Bitartrate 8 mg/ Dextrose 508 ml @ 0 mls/hr Q0M PRN IV 10/16/17 05:26 11/15/17 05:25 10/17/17 02:38 28.6 MLS/HR Dobutamine HCl 250 ml @ 0 mls/hr Q0M PRN IV 10/16/17 12:15 11/15/17 12:14 10/17/17 02:37 14.4 MLS/HR Lorazepam (Ativan Inj) 1 mg Q1H PRN IV 10/17/17 14:00 11/16/17 13:59 10/17/17 15:01 1 MG Lorazepam (Ativan Inj) 0.5 mg Q1H PRN IV 10/17/17 14:00 11/16/17 13:59 Morphine Sulfate (MoRPHine SULFATE INJ) 4 mg Q1H PRN IV 10/17/17 14:00 10/31/17 13:59 Morphine Sulfate (MoRPHine SULFATE INJ) 2 mg Q1H PRN IV 10/17/17 14:00 10/31/17 13:59 Scopolamine (Transderm-Scop Patch) 1.5 mg Q72H TD 10/17/17 14:15 11/16/17 14:14 10/17/17 14:41 1.5 MG Miscellaneous (Remove Transderm-Scop Patch) 1 ea Q72H N/A 10/20/17 14:15 11/19/17 14:14 Miscellaneous Information (Check Scopolamine Patch Placement) 1 ea QS N/A 10/17/17 16:00 11/16/17 15:59 Atropine Sulfate (Atropine Sulfate 1% Oph Soln) 4 drops Q1H PRN PO 10/17/17 14:00 11/16/17 13:59 Objective Vital Signs Date Time Temp Pulse Resp B/P (MAP) Pulse Ox O2 Delivery O2 Flow Rate FiO2 10/17/17 12:00 97 26 122/52 (75) 94 Nasal Cannula 4.0 10/17/17 12:00 87 Room Air 10/17/17 12:00 99 20 102/62 (75) 91 Nasal Cannula 4.0 10/17/17 11:00 98 20 113/60 (77) 92 Nasal Cannula 4.0 10/17/17 10:00 95 22 86/52 (63) 92 Nasal Cannula 5.0 10/17/17 08:00 91 Nasal Cannula 5.0 10/17/17 07:20 95 24 96 Nasal Cannula 4.5 10/17/17 06:31 97 20 108/61 (78) 95 76/39 10/17/17 06:01 95 10 107/59 (52) 95 70/34 10/17/17 05:31 96 18 105/58 (48) 94 63/36 10/17/17 05:10 96 92 30 10/17/17 05:01 96 24 97/50 (39) 80 51/28 10/17/17 04:31 94 21 101/66 (84) 94 60/29 10/17/17 04:01 36.8 94 20 112/64 (53) 98 70/35 10/17/17 04:00 Nasal Cannula 5.0 10/17/17 03:31 93 18 109/72 (90) 97 67/32 10/17/17 03:01 98 20 110/60 (53) 96 72/37 10/17/17 02:31 98 24 106/51 (75) 90 66/33 10/17/17 02:30 98 18 (52) 92 71/36 4/20/18 02:01 99 21 113/66 (45) 91 57/33 4/20/18 02:00 104 18 (46) 90 85/6 4/20/18 01:51 95 24 92 BiPAP/CPAP 30 4/20/18 01:51 95 92 30 4/20/18 01:31 93 24 109/57 (50) 93 67/35 4/20/18 00:31 95 23 117/61 (56) 95 72/35 4/20/18 00:21 92 30 103/48 (63) 94 71/39 4/20/18 00:11 86 24 110/58 (55) 97 73/35 4/20/18 00:01 37.0 85 27 125/59 (80) 97 74/40 4/19/18 23:59 Nasal Cannula 5.0 4/19/18 23:51 98 21 122/53 (74) 96 69/36 4/19/18 23:41 87 26 115/55 (90) 97 76/41 4/19/18 23:31 223 34 105/57 (81) 88 59/33 4/19/18 23:21 99 27 119/62 (92) 96 77/39 4/19/18 23:11 105 96 30 4/19/18 23:11 92 19 95/64 (69) 90 76/39 4/19/18 23:01 90 21 105/64 (88) 131/34 4/19/18 22:21 89 23 112/70 (75) 95 73/37 4/19/18 22:11 91 35 113/52 (46) 90 59/31 4/19/18 22:01 93 22 107/57 (80) 93 75/38 4/19/18 21:31 103 23 110/64 (61) 96 81/43 4/19/18 20:51 94 14 110/58 (71) 98 75/38 4/19/18 20:01 36.9 104 19 113/63 (52) 92 70/34 4/19/18 20:00 BiPAP 40 4/19/18 19:21 94 21 107/61 (78) 100 75/37 4/19/18 19:12 95 23 105/61 (58) 100 79/35 4/19/18 19:08 87 100 40 4/19/18 19:07 87 20 100 BiPAP/CPAP 40 10/16/17 19:01 89 16 106/63 (73) 100 84/48 18 18:51 100 16 115/66 (72) 99 82/42 18 18:32 98 17 91/67 (81) 93 99/43 18 18:21 99 22 105/51 (81) 96 82/42 18 18:11 90 23 103/69 (61) 98 81/43 10/16/17 18:01 88 23 99/49 (54) 69/40 18 17:51 91 22 98/52 (55) 89 82/41 10/16/17 17:21 118 23 101/54 (65) 95 74/40 18 17:11 91 20 93/54 (62) 90 77/43 10/16/17 17:01 86 22 101/57 (57) 96 73/42 10/16/17 17:00 88 24 (59) 96 74/45 10/16/17 16:31 90 23 100/73 (76) 80/46 18 16:21 90 17 91/50 (68) 82/47 18 16:11 93 20 100/54 (56) 90 77/38 10/16/17 16:01 91 19 96/53 (70) 92 87/55 10/16/17 16:00 Nasal Cannula 5.0 10/16/17 15:51 77 22 93/49 (66) 70/36 18 15:41 98 22 104/63 (65) 90 84/48 10/16/17 15:31 88 17 90/61 (62) 92 82/43 10/16/17 15:25 86 15 110/62 (86) 90 85/42 18 15:21 88 20 109/64 (78) 85 74/36 18 15:11 89 21 97/62 (74) 94 77/43 Physical Exam General Appearance: WD/WN, + mild distress Eyes: normal inspection, EOMI, sclerae normal ENT: normal ENT inspection, pharynx normal Neck: supple, thyroid normal Respiratory/Chest: chest non-tender, no respiratory distress, no accessory muscle use, + rales Cardiovascular: regular rate, rhythm, no gallop, no murmur Abdomen: normal bowel sounds, non tender, soft, no organomegaly Extremities: non-tender, no pedal edema Neurologic/Psychiatric: alert, oriented x 3 Skin: normal color, no rash Lymphatic: no adenopathy Laboratory Results RUN DATE: 10/17/17 [facility] LAB PAGE 1 RUN TIME: 1407 Specimen Inquiry PATIENT: KATHY LOREDO LOC: [facility] U # : [id number] AGE/SX: 77/M ROOM: [facility] REG : 10/13/[address]: Vijay Stack M : 1940 BED: 1 DIS : STATUS: ADM IN TLOC: SPEC #: [id number] GRAYSON: 10/15/17 STATUS: RES REQ #: [id number] RECD: 10/15/[address]: Hector Cardozo MD SOURCE: ABSCESS ENTR: 10/15/[address] [facility] [address]: Peter Brown M.D. [facility]: Eddy Lundy M.D., Jennifer., D.O. Shannon, Dennis, M.D. ORDERED: AER/PRECIOUS CULTSMR Procedure Result Verified Site GRAM STAIN Final 10/15/17-7 RESULT MANY POLYS RARE GRAM POSITIVE COCCI OR AER/PRECIOUS CULT Preliminary 10/17/17-1407 Organism 1 PROTEUS MIRABILIS QUANITY MODERATE SENS SENSITIVITY TO FOLLOW +MIXWOUND PLUS LOW COUNTS OF PROBABLE INTESTINAL LAUREL 1. PROTEUS MIRABILIS Target Route Dose RX AB Cost M.I.C. IQ ------ ----- ------ -- ------ -------- - ------ TRIMET/SULFA S <=2/38 AMPICILLIN S <=8 AMPICILLIN/SUL S <=8/4 CEFAZOLIN S <=8 CEFOXITIN S <=8 CEFOTAXIME S <=2 CEFTRIAXONE S <=1 CEFEPIME S <=4 CEFUROXIME S <=4 GENTAMICIN S <=4 TOBRAMYCIN S <=4 AMIKACIN S <=16 CIPROFLOXACIN S <=1 LEVOFLOXACIN S <=2 ERTAPENEM S <=1 PIP/TAZO S <=16 S = SENSITIVE I = INTERMEDIATE R = RESISTANT END OF REPORT Last 24 Hours Test 10/16/17 16:28 10/16/17 21:31 10/17/17 02:08 10/17/17 04:45 Bedside Glucose 162 mg/dl Bedside Glucose (other) 159 mg/dl 131 mg/dl White Blood Count 8.61 K/uL Red Blood Count 3.47 M/uL Hemoglobin 8.4 g/dL Hematocrit 29.1 % Mean Corpuscular Volume 83.9 fL Mean Corpuscular Hemoglobin 24.2 pg Mean Corpuscular Hemoglobin Concent 28.9 g/dl RDW Standard Deviation 54.1 fL RDW Coefficient of Variation 17.7 % Platelet Count 182 K/uL Mean Platelet Volume 11.2 fL Prothrombin Time 14.2 SECONDS Prothromb Time International Ratio 1.4 Sodium Level 134 mmol/L Potassium Level 4.1 mmol/L Chloride Level 102 mmol/L Carbon Dioxide Level 30 mmol/L Anion Gap 2.0 mmol/L Blood Urea Nitrogen 25 mg/dl Creatinine 1.53 mg/dl Est Creatinine Clear Calc Drug Dose 46.3 ml/min Estimated GFR () 50.1 Estimated GFR (Non- 43.2 BUN/Creatinine Ratio 16.3 Random Glucose 117 mg/dl Calcium Level 7.7 mg/dl Phosphorus Level 3.1 mg/dl Magnesium Level 2.2 mg/dl Total Bilirubin 0.5 mg/dl Direct Bilirubin 0.2 mg/dl Aspartate Amino Transf (AST/SGOT) 17 U/L Alanine Aminotransferase (ALT/SGPT) 21 U/L Alkaline Phosphatase 79 U/L Total Protein 6.1 gm/dl Albumin 2.1 gm/dl Test 10/17/17 05:08 Blood Gas Sample Site Art Line Bedside Blood Gas pH (LAB) 7.35 Bedside Blood Gas pCO2 (LAB) 55 mmHg Bedside Blood Gas pO2 (LAB) 76 mmHg Bedside Blood Gas HCO3 (LAB) 30 meq/L Bedside Blood Gas Total CO2 32 mEq/l Bedside Blood Gas Base Excess (LAB) 5.0 meq/L Bedside Blood Gas O2 Saturation 94.0 % Elio Test NA Oxygen Delivery Device Cannula Assessment and Plan (1) Anemia of chronic disease (2) A-fib (3) HTN (hypertension) (4) Buttock wound (5) Pressure ulcer Status: Acute (6) Decubitus ulcer (7) Acute respiratory failure with hypoxia and hypercapnia Status: Acute (8) Hypoxia Status: Acute (9) Pleural effusion Status: Acute Worsening left gluteal infection with abscess formation status post surgical debridement with persistent postoperative respiratory failure and hypotension. Patient now on comfort measures only, antibiotics have been discontinued. Therefore will discontinue daily ID follow-up. Please contact us if any further input necessary.
[2017-10-17] MEDS ORDERED: CHECK SCOPOLAMINE PATCH PLACEMENT SCH (16:00)
--- NOTE | 2017-10-17 17:03 | Palliative Care Consultation ---
Consultation Date of Consultation: Oct 17, 2017. Requesting Physician: Dr Bueno Attending Physician: Dr Bueno Reason for Consultation: Determine goals of care History of Present Illness .Asked to see the patient by staff to help with conflicting goals of care between the patient and spouse. Patient would voice his wishes and private but would go along with 's request for aggressive care when she was present. Met at bedside with patient, his and their clothespin drier operator, discussed the importance of the patient expressing his wishes to his . Patient was able to express that he was tired and felt that he was at the end of his life and wanted to be made comfortable. was appropriately tearful but supportive of his decision as well as their clothespin drier operator. Entire family gathered in the room after private discussion with patient and , patient asked me to express his wishes to his family. Family is supportive of his decision and are grieving appropriately. Plan is to turn off the AICD, then stop pressors and place patient on comfort care. Patient admitted on 10/13 for surgical intervention for a sacral decub. Patient underwent surgical debridement that required debridement to the bone, area was measured as 13 x 10 cm. Patient has wound VAC in place. We will see how patient does after being removed from pressors over the weekend , may look to get patient home with hospice if possible early next week. Patient expressed his wishes to at home if possible.. Past Medical/Surgical History Medical History: CHF, CAD, AF, AVR 3, HTN, HLD, hypothyroid, CKD, transverse myelitis, AAA, aortic dissection, anemia Frequent hospitalizations with 4 hospitalizations/ER visits since June Surgical History: AVR 3, CABG Family History Positive for diabetes Social History Smoking Status: Former Smoker History of Alcohol Use: No Drug Use: none Marital Status: Housing Status: lives with family Occupation Status: retired Review of Systems Unable to obtain due to shortness of breath Allergies Coded Allergies: Adhesives (Verified Allergy, Unknown, removed skin, 09/20/17) Medications Current Inpatient Medications Medications (Trade) Dose Ordered Sig/Deion Route Start Time Stop Time Status Last Admin Dose Admin Ipratropium [place] (Atrovent 0.02% 0.5MG/2.5ML Neb) 0.5 mg Q6R INH 10/15/17 21:00 11/14/17 20:59 10/17/17 07:18 0.5 MG Levalbuterol (Xopenex 1.25MG/ 0.5ML Neb) 1.25 mg Q6R INH 10/15/17 21:00 11/14/17 20:59 10/17/17 07:18 1.25 MG Lorazepam (Ativan Inj) 1 mg Q1H PRN IV 10/17/17 14:00 11/16/17 13:59 10/17/17 15:01 1 MG Lorazepam (Ativan Inj) 0.5 mg Q1H PRN IV 10/17/17 14:00 11/16/17 13:59 Morphine Sulfate (MoRPHine SULFATE INJ) 4 mg Q1H PRN IV 10/17/17 14:00 10/31/17 13:59 Morphine Sulfate (MoRPHine SULFATE INJ) 2 mg Q1H PRN IV 10/17/17 14:00 10/31/17 13:59 Scopolamine (Transderm-Scop Patch) 1.5 mg Q72H TD 10/17/17 14:15 11/16/17 14:14 10/17/17 14:41 1.5 MG Miscellaneous (Remove Transderm-Scop Patch) 1 ea Q72H N/A 10/20/17 14:15 11/19/17 14:14 Miscellaneous Information (Check Scopolamine Patch Placement) 1 ea QS N/A 10/17/17 16:00 11/16/17 15:59 Atropine Sulfate (Atropine Sulfate 1% Oph Soln) 4 drops Q1H PRN PO 10/17/17 14:00 11/16/17 13:59 Physical Exam Date Time Temp Pulse Resp B/P (MAP) Pulse Ox O2 Delivery O2 Flow Rate FiO2 10/17/17 12:00 97 26 122/52 (75) 94 Nasal Cannula 4.0 10/17/17 12:00 87 Room Air 10/17/17 12:00 99 20 102/62 (75) 91 Nasal Cannula 4.0 10/17/17 11:00 98 20 113/60 (77) 92 Nasal Cannula 4.0 10/17/17 10:00 95 22 86/52 (63) 92 Nasal Cannula 5.0 10/17/17 08:00 91 Nasal Cannula 5.0 10/17/17 07:20 95 24 96 Nasal Cannula 4.5 10/17/17 06:31 97 20 108/61 (78) 95 76/39 4/20/18 06:01 95 10 107/59 (52) 95 70/34 4/20/18 05:31 96 18 105/58 (48) 94 63/36 4/20/18 05:10 96 92 30 4/20/18 05:01 96 24 97/50 (39) 80 51/28 4/20/18 04:31 94 21 101/66 (84) 94 60/29 420/18 04:01 36.8 94 20 112/64 (53) 98 70/35 4/20/18 04:00 Nasal Cannula 5.0 20/18 03:31 93 18 109/72 (90) 97 67/32 4/20/18 03:01 98 20 110/60 (53) 96 72/37 4/20/18 02:31 98 24 106/51 (75) 90 66/33 420/18 02:30 98 18 (52) 92 71/36 420/18 02:01 99 21 113/66 (45) 91 57/33 420/18 02:00 104 18 (46) 90 85/6 420/18 01:51 95 24 92 BiPAP/CPAP 30 18 01:51 95 92 30 /20/18 01:31 93 24 109/57 (50) 93 67/35 4/20/18 00:31 95 23 117/61 (56) 95 72/35 4/20/18 00:21 92 30 103/48 (63) 94 71/39 4/20/18 00:11 86 24 110/58 (55) 97 73/35 4/20/18 00:01 37.0 85 27 125/59 (80) 97 74/40 4/19/18 23:59 Nasal Cannula 5.0 /19/18 23:51 98 21 122/53 (74) 96 69/36 4/19/18 23:41 87 26 115/55 (90) 97 76/41 4/19/18 23:31 223 34 105/57 (81) 88 59/33 4/19/18 23:21 99 27 119/62 (92) 96 77/39 4/19/18 23:11 105 96 30 4/19/18 23:11 92 19 95/64 (69) 90 76/39 4/19/18 23:01 90 21 105/64 (88) 131/34 4/19/18 22:21 89 23 112/70 (75) 95 73/37 4/19/18 22:11 91 35 113/52 (46) 90 59/31 4/19/18 22:01 93 22 107/57 (80) 93 75/38 4/19/18 21:31 103 23 110/64 (61) 96 81/43 4/19/18 20:51 94 14 110/58 (71) 98 75/38 4/19/18 20:01 36.9 104 19 113/63 (52) 92 70/34 419/18 20:00 BiPAP 40 10/16/18 19:21 94 21 107/61 (78) 100 75/37 4/19/18 19:12 95 23 105/61 (58) 100 79/35 //18 19:08 87 100 40 //18 19:07 87 20 100 BiPAP/CPAP 40 18 19:01 89 16 106/63 (73) 100 84/48 4/19/18 18:51 100 16 115/66 (72) 99 82/42 4/19/18 18:32 98 17 91/67 (81) 93 99/43 4/19/18 18:21 99 22 105/51 (81) 96 82/42 4/19/18 18:11 90 23 103/69 (61) 98 81/43 4/19/18 18:01 88 23 99/49 (54) 69/40 419/18 17:51 91 22 98/52 (55) 89 82/41 4/19/18 17:21 118 23 101/54 (65) 95 74/40 4/19/18 17:11 91 20 93/54 (62) 90 77/43 General Appearance: + mild distress Eyes: EOMI ENT: hearing grossly normal Respiratory: + decreased breath sounds Cardiovascular: regular rate, rhythm Abdomen: soft Musculoskeletal: abnormal strength Neurologic/Psychiatric: alert, + pertinent finding (Patient grieving appropriately, tearful) Skin: + pallor Laboratory Results Last 24 Hours Test 10/16/17 21:31 10/17/17 02:08 10/17/17 04:45 10/17/17 05:08 Bedside Glucose (other) 159 mg/dl 131 mg/dl White Blood Count 8.61 K/uL Red Blood Count 3.47 M/uL Hemoglobin 8.4 g/dL Hematocrit 29.1 % Mean Corpuscular Volume 83.9 fL Mean Corpuscular Hemoglobin 24.2 pg Mean Corpuscular Hemoglobin Concent 28.9 g/dl RDW Standard Deviation 54.1 fL RDW Coefficient of Variation 17.7 % Platelet Count 182 K/uL Mean Platelet Volume 11.2 fL Prothrombin Time 14.2 SECONDS Prothromb Time International Ratio 1.4 Sodium Level 134 mmol/L Potassium Level 4.1 mmol/L Chloride Level 102 mmol/L Carbon Dioxide Level 30 mmol/L Anion Gap 2.0 mmol/L Blood Urea Nitrogen 25 mg/dl Creatinine 1.53 mg/dl Est Creatinine Clear Calc Drug Dose 46.3 ml/min Estimated GFR () 50.1 Estimated GFR (Non- 43.2 BUN/Creatinine Ratio 16.3 Random Glucose 117 mg/dl Calcium Level 7.7 mg/dl Phosphorus Level 3.1 mg/dl Magnesium Level 2.2 mg/dl Total Bilirubin 0.5 mg/dl Direct Bilirubin 0.2 mg/dl Aspartate Amino Transf (AST/SGOT) 17 U/L Alanine Aminotransferase (ALT/SGPT) 21 U/L Alkaline Phosphatase 79 U/L Total Protein 6.1 gm/dl Albumin 2.1 gm/dl Blood Gas Sample Site Art Line Bedside Blood Gas pH (LAB) 7.35 Bedside Blood Gas pCO2 (LAB) 55 mmHg Bedside Blood Gas pO2 (LAB) 76 mmHg Bedside Blood Gas HCO3 (LAB) 30 meq/L Bedside Blood Gas Total CO2 32 mEq/l Bedside Blood Gas Base Excess (LAB) 5.0 meq/L Bedside Blood Gas O2 Saturation 94.0 % Elio Test NA Oxygen Delivery Device Cannula Assessment & Plan Palliative Performance Scale: 30 % (1) Palliative care encounter Status: Acute Assessment & Plan: Met with patient, and clothespin drier operator and private, met with entire family present at the hospital and discussed patient's current wishes for comfort care. Provided support to patient and family regarding his decision. 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 Will give IV morphine as needed for dyspnea. (4) Hypotension Status: Acute Assessment & Plan: Patient requiring pressors, patient wishes to have pressors discontinued. We will honors patient wishes and provide comfort care. Counseling and Coordination Total time spent 70 minutes with greater than 50% of the time spent at bedside discussing patient's wishes and goals of care. Providing support to patient and family.
--- NOTE | 2017-10-17 19:06 | Critical Care Progress Note ---
Critical Care Progress Note Date of Service Oct 17, 2017. Attending Dr. Bueno Objective His physical exam today revealed blood pressure of 76/35 and and BP is 107/59. Heart rate is 82 with O2 sat of 96%. On nasal cannula. S1-S2 regular rate and rhythm, distant breath sounds bilaterally, abdomen is soft but benign, he has edema in the periphery. The patient has ultrasound done at the bedside which revealed small amount of pleural effusion on the left. Echocardiogram was done also by me at the bedside which showed hyperdynamic right ventricle but noncompressible IVC. All his laboratory been reviewed including BUN/creatinine which are slightly elevated. Physical exam today revealed vital signs remains unpredictable with blood pressure has been fluctuating. O2 saturation maintained at 96% but on occasion the patient dropped down to the 80s and become pale. The patient was on pressors as well as dobutamine to maintain his hemodynamic state. Heart examination S1-S2 regular rate and rhythm totally paced. Bilateral distant breath sounds on the left and crackles in the right base. Abdomen is benign. Postop left gluteal area. Trace edema in the periphery. Neurologically the patient has been lethargic but answering questions properly. Assessment & Plan 1. The patient showing signs of distributive shock rather than cardiogenic shock. I would expect his CVP to be much higher. 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 This representing ongoing septic shock. 2. Cardiomyopathy with ejection fraction of only 20%. 3. Acute hypercapnic respiratory failure, highly suspicious for change stoking breathing and central sleep apnea. 4. Gluteal abscess status post drainage. 5. Acute on chronic hypercapnic respiratory failure. Plan: 1. the patient continued on Levophed and dobutamine however he has episodes where his blood pressure has been difficult to maintain. 2. Continue current antibiotics. 3. Palliative care. Appreciate Dr. Gomes input. #[address] with the family and the patient including the , the patient himself and Dr. Gomes, appreciate her input in that regard, according to the patient he decided not to pursue any further care at this point and he would like to go for comfort measures. The patient apparently has been battling his illness for the past 4 months. The patient did not have a good quality of life and he spent most of the time in hospitals and rehab. The patient cardiac status has been deteriorating with ejection fraction of 20% and AICD in place and on multiple occasions the patient started to have change talking breathing as well with O2 saturation declining. The patient is not tolerating the BiPAP any further. Based on the above, family decided for comfort measures only, [employer] has been called for interrogation of his AICD to the activated. The patient was started on comfort measures by palliative care, and transferred to regular floor. Appreciate also the assistance of Dr. Stack. Case discussed with the staff on rounds and details and with the family in details. Total critical care time spent with the patient was 45 minutes. Data Medications: Current Inpatient Medications Medications (Trade) Dose Ordered Sig/Deion Route Start Time Stop Time Status Last Admin Dose Admin Ipratropium [place] (Atrovent 0.02% 0.5MG/2.5ML Neb) 0.5 mg Q6R INH 10/15/17 21:00 11/14/17 20:59 10/17/17 07:18 0.5 MG Levalbuterol (Xopenex 1.25MG/ 0.5ML Neb) 1.25 mg Q6R INH 10/15/17 21:00 11/14/17 20:59 10/17/17 07:18 1.25 MG Lorazepam (Ativan Inj) 1 mg Q1H PRN IV 10/17/17 14:00 11/16/17 13:59 10/17/17 15:01 1 MG Lorazepam (Ativan Inj) 0.5 mg Q1H PRN IV 10/17/17 14:00 11/16/17 13:59 Morphine Sulfate (MoRPHine SULFATE INJ) 4 mg Q1H PRN IV 10/17/17 14:00 10/31/17 13:59 Morphine Sulfate (MoRPHine SULFATE INJ) 2 mg Q1H PRN IV 10/17/17 14:00 10/31/17 13:59 Scopolamine (Transderm-Scop Patch) 1.5 mg Q72H TD 10/17/17 14:15 11/16/17 14:14 10/17/17 14:41 1.5 MG Miscellaneous (Remove Transderm-Scop Patch) 1 ea Q72H N/A 10/20/17 14:15 11/19/17 14:14 Miscellaneous Information (Check Scopolamine Patch Placement) 1 ea QS N/A 10/17/17 16:00 11/16/17 15:59 10/17/17 16:00 1 EA Atropine Sulfate (Atropine Sulfate 1% Oph Soln) 4 drops Q1H PRN PO 10/17/17 14:00 11/16/17 13:59 I & O: 24-Hour Column 10/18/17 08:00 Intake Total 1034 ml Output Total 600 ml Balance 434 ml Vital Signs: Date Time Temp Pulse Resp B/P (MAP) Pulse Ox O2 Delivery O2 Flow Rate FiO2 10/17/17 12:00 97 26 122/52 (75) 94 Nasal Cannula 4.0 10/17/17 12:00 87 Room Air 10/17/17 12:00 99 20 102/62 (75) 91 Nasal Cannula 4.0 10/17/17 11:00 98 20 113/60 (77) 92 Nasal Cannula 4.0 10/17/17 10:00 95 22 86/52 (63) 92 Nasal Cannula 5.0 10/17/17 08:00 91 Nasal Cannula 5.0 10/17/17 07:20 95 24 96 Nasal Cannula 4.5 10/17/17 06:31 97 20 108/61 (78) 95 76/39 10/17/17 06:01 95 10 107/59 (52) 95 70/34 10/17/17 05:31 96 18 105/58 (48) 94 63/36 10/17/17 05:10 96 92 30 10/17/17 05:01 96 24 97/50 (39) 80 51/28 10/17/17 04:31 94 21 101/66 (84) 94 60/29 10/17/17 04:01 36.8 94 20 112/64 (53) 98 70/35 10/17/17 04:00 Nasal Cannula 5.0 10/17/17 03:31 93 18 109/72 (90) 97 67/32 10/17/17 03:01 98 20 110/60 (53) 96 72/37 10/17/17 02:31 98 24 106/51 (75) 90 66/33 10/17/17 02:30 98 18 (52) 92 71/36 10/17/17 02:01 99 21 113/66 (45) 91 57/33 10/17/17 02:00 104 18 (46) 90 85/6 4/20/18 01:51 95 24 92 BiPAP/CPAP 30 4/20/18 01:51 95 92 30 4/20/18 01:31 93 24 109/57 (50) 93 67/35 4/20/18 00:31 95 23 117/61 (56) 95 72/35 4/20/18 00:21 92 30 103/48 (63) 94 71/39 4/20/18 00:11 86 24 110/58 (55) 97 73/35 4/20/18 00:01 37.0 85 27 125/59 (80) 97 74/40 4/19/18 23:59 Nasal Cannula 5.0 19/18 23:51 98 21 122/53 (74) 96 69/36 4/19/18 23:41 87 26 115/55 (90) 97 76/41 4/19/18 23:31 223 34 105/57 (81) 88 59/33 4/19/18 23:21 99 27 119/62 (92) 96 77/39 4/19/18 23:11 105 96 30 4/19/18 23:11 92 19 95/64 (69) 90 76/39 4/19/18 23:01 90 21 105/64 (88) 131/34 4/19/18 22:21 89 23 112/70 (75) 95 73/37 4/19/18 22:11 91 35 113/52 (46) 90 59/31 4/19/18 22:01 93 22 107/57 (80) 93 75/38 4/19/18 21:31 103 23 110/64 (61) 96 81/43 4/19/18 20:51 94 14 110/58 (71) 98 75/38 4/19/18 20:01 36.9 104 19 113/63 (52) 92 70/34 4/19/18 20:00 BiPAP 40 4/19/18 19:21 94 21 107/61 (78) 100 75/37 4/19/18 19:12 95 23 105/61 (58) 100 79/35 4/19/18 19:08 87 100 40 4/19/18 19:07 87 20 100 BiPAP/CPAP 40 4/19/18 19:01 89 16 106/63 (73) 100 84/48 Laboratory Results: Last 24 Hours Test 18 21:31 4/20/18 02:08 10/17/17 04:45 10/17/17 05:08 Bedside Glucose (other) 159 mg/dl 131 mg/dl White Blood Count 8.61 K/uL Red Blood Count 3.47 M/uL Hemoglobin 8.4 g/dL Hematocrit 29.1 % Mean Corpuscular Volume 83.9 fL Mean Corpuscular Hemoglobin 24.2 pg Mean Corpuscular Hemoglobin Concent 28.9 g/dl RDW Standard Deviation 54.1 fL RDW Coefficient of Variation 17.7 % Platelet Count 182 K/uL Mean Platelet Volume 11.2 fL Prothrombin Time 14.2 SECONDS Prothromb Time International Ratio 1.4 Sodium Level 134 mmol/L Potassium Level 4.1 mmol/L Chloride Level 102 mmol/L Carbon Dioxide Level 30 mmol/L Anion Gap 2.0 mmol/L Blood Urea Nitrogen 25 mg/dl Creatinine 1.53 mg/dl Est Creatinine Clear Calc Drug Dose 46.3 ml/min Estimated GFR () 50.1 Estimated GFR (Non- 43.2 BUN/Creatinine Ratio 16.3 Random Glucose 117 mg/dl Calcium Level 7.7 mg/dl Phosphorus Level 3.1 mg/dl Magnesium Level 2.2 mg/dl Total Bilirubin 0.5 mg/dl Direct Bilirubin 0.2 mg/dl Aspartate Amino Transf (AST/SGOT) 17 U/L Alanine Aminotransferase (ALT/SGPT) 21 U/L Alkaline Phosphatase 79 U/L Total Protein 6.1 gm/dl Albumin 2.1 gm/dl Blood Gas Sample Site Art Line Bedside Blood Gas pH (LAB) 7.35 Bedside Blood Gas pCO2 (LAB) 55 mmHg Bedside Blood Gas pO2 (LAB) 76 mmHg Bedside Blood Gas HCO3 (LAB) 30 meq/L Bedside Blood Gas Total CO2 32 mEq/l Bedside Blood Gas Base Excess (LAB) 5.0 meq/L Bedside Blood Gas O2 Saturation 94.0 % Elio Test NA Oxygen Delivery Device Cannula
[2017-10-18] MEDS ORDERED: VANCOMYCIN TROUGH ONE (05:30)
--- NOTE | 2017-10-18 08:57 | Death Summary ---
Summary of Admission Date Oct 13, 2017 at 12:30 Date & Time of Oct 17, 2017. 1913 Cause of CARDIOGENIC SHOCK, SYSTOLIC HEART FAILURE Hospital Course Assessment and Plan Mr. Garcia is a 77 year old man here for surgical intervention of a sacral decubitus Ulcer At this point, he and his family have decided on comfort measures only and he will be transferred out of the ICU. 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 - patient's prognosis poor given his current status and significant comorbidities - Consulted general surgery - Wound culture grew out proteus, given Zosyn; vanc initially discontinued as culture did not grow MRSA and MRSA swab negative, but restarted given patient's status and lack of response to Zosyn alone - ID consulted - BC ngtd, CAD S/P CABG; AAA/Aortic Dissection; S/P ICD/Pacer; Chronic Systolic CHF; Atrial Fibrillation: - Patient takes 2m Bumex bid at home - on hold - patient being diuresed intermittently with IV lasix - continued home amiodarone, metoprolol - Coumadin was held for procedure Friday - reversed with vitamin K x 3 doses , resumed Coumadin following procedure - INR 1.4 CKD III - patient's creatinine 1.5, baseline around 1-1.3 - trending prp, nya and Bumex held for low bp - avoid nephrotoxins where possible Hypothyroid - continued home levothyroxine BPH - continued home tamsulosin
== END 2017-10-17 19:15 | disposition expired | DRG 579 ==
LOC: C.MSN 10:58 → OBSVTOIN 12:30 → ENRESERV 10-15 10:27 → C.MSICU 10-15 10:29 → EDBEDREQSVC 10-17 16:38 → ENRESERV 10-17 17:18 → C.4E 10-17 18:33
PROVIDERS: ADMIT Internal Medicine; ATTEND Internal Medicine
PROC: 0KBG0ZZ Excision of Left Trunk Muscle, Open Approach (ICD-10-PCS; principal; 2017-10-05)
PROC: 02HV3DZ Insertion of Intraluminal Device into Superior Vena Cava, Percutaneous Approach (ICD-10-PCS; 2017-10-16)
PROC: 03HY32Z Insertion of Monitoring Device into Upper Artery, Percutaneous Approach (ICD-10-PCS; 2017-10-16)
DX: L89.154 Pressure ulcer of sacral region, stage 4 (principal); I50.22 Chronic systolic (congestive) heart failure; G37.3 Acute transverse myelitis in demyelinating disease of central nervous system; R65.21 Severe sepsis with septic shock; I13.0 Hypertensive heart and chronic kidney disease with heart failure and stage 1 through stage 4 chronic kidney disease, or unspecified chronic kidney disease; J96.20 Acute and chronic respiratory failure, unspecified whether with hypoxia or hypercapnia; I42.9 Cardiomyopathy, unspecified; L02.31 Cutaneous abscess of buttock; I48.91 Unspecified atrial fibrillation; I25.10 Atherosclerotic heart disease of native coronary artery without angina pectoris; I72.3 Aneurysm of iliac artery; I71.4 Abdominal aortic aneurysm, without rupture; I95.81 Postprocedural hypotension; Z51.5 Encounter for palliative care; E03.9 Hypothyroidism, unspecified; N18.3 Chronic kidney disease, stage 3 (moderate); Z87.891 Personal history of nicotine dependence; N40.1 Benign prostatic hyperplasia with lower urinary tract symptoms; E78.5 Hyperlipidemia, unspecified; Z95.810 Presence of automatic (implantable) cardiac defibrillator; K40.90 Unilateral inguinal hernia, without obstruction or gangrene, not specified as recurrent; B96.4 Proteus (mirabilis) (morganii) as the cause of diseases classified elsewhere; R33.8 Other retention of urine; Z95.1 Presence of aortocoronary bypass graft; B95.61 Methicillin susceptible Staphylococcus aureus infection as the cause of diseases classified elsewhere